=== PATIENT | female | born 1940 | race Caucasian/White ===

== ENCOUNTER 2018-04-18 19:01 | Observation (INO) | payer OTHER ==
--- NOTE | 2018-04-18 20:02 | PDOC ---
Rapid Medical Evaluation Time Seen by Provider: 04/18/18 19:58 Medical Evaluation: 04/18/18 19:58 I have performed a assbv-lr-mogary evaluation. The patient presents with a chief complaint: daughter says : her sugar is higher than 500, we can't control it" April 02, pt was on prednisone for 15 days due to asthma "The prednisone threw off her sugar level" Pt went to see PMD x2d ago/Dr. Deborah Kessler/Ken, increased insulin " which isn't helping" CP today when moving "She is NOT eating because she's scared" Last glucose test at home: 568 at ~1600h today +nausea/diarrhea stomach "discomfort" Denies vomiting Pertinent physical exam findings: L/S CTAB I have ordered the following: cbc/cmp/lactic/ekg/cardiac The patient will proceed to the ED for further evaluation. Discharge Disposition - Referrals Referrals: Ayan Kessler MD [Primary Care Provider] - - Patient Instructions - Post Discharge Activity
[2018-04-18 20:21] LABS: BASO % 0.2 % (0-2.0); HEMATOCRIT 37.5 % (32.4-45.2); HEMOGLOBIN 12.1 GM/dL (10.7-15.3); LYMPH % 32.2 % (8-40); MCH 21.6 pg (25.7-33.7); MCHC 32.3 g/dl (32.0-36.0); MEAN CELL VOLUME 66.8 fl (80-96); MEAN PLT VOLUME 8.8 fl (7.5-11.1); MONO % 5.8 % (3.8-10.2); NEUT % 59.8 % (42.8-82.8); PLATELET COUNT 229 K/MM3 (134-434); RBC 5.61 M/mm3 (3.60-5.2); RDW 17.1 % (11.6-15.6); WHITE BLOOD COUNT 6.9 K/mm3 (4.0-10.0)
--- NOTE | 2018-04-18 20:55 | PDOC ---
History of Present Illness - General Chief Complaint: Blood Sugar Problem Stated Complaint: SUGAR PROBLEM Time Seen by Provider: 04/18/18 19:58 - History of Present Illness Initial Comments: 04/18/18 21:05 Ms. Herrera is an 78 yo female w/ pmh of asthma, HTN, HLD, DM, and aortic valve replacement who presents for evaluation of several day history of increasing blood sugars over 500. She reports she was on prednisone recently (ended April 07) for seasonal allergies that exacerbated her asthma. Since this time she has had escalating BGM and hypertension - saw PCP 2 days ago and insulin / htn medication doses were both increased. She also reports nausea with diarrhea and generalized abdominal pain. The patient denies chest pain, shortness of breath, headache and dizziness. Denies fever, chills, nausea, vomit, diarrhea and constipation. Denies dysuria, frequency, urgency and hematuria. Allergies: NKDA Past History - Past Medical History Allergies/Adverse Reactions: Allergies Allergy/AdvReac Type Severity Reaction Status Date / Time No Known Allergies Allergy Verified 04/18/18 19:59 Asthma: Yes COPD: No DVT: No Diabetes: Yes (IDDM) HTN: Yes - Surgical History Cardiac Surgery: Yes (aortic valve replacement) GI Surgery: Yes (cholecystectomy) - Suicide/Smoking/Psychosocial Hx Smoking History: Never smoked Information on smoking cessation initiated: No Hx Alcohol Use: No Drug/Substance Use Hx: No Substance Use Type: None Review of Systems - Review of Systems Comments:: 04/18/18 21:29 GENERAL/CONSTITUTIONAL: No fever or chills. No weakness. HEAD, EYES, EARS, NOSE AND THROAT: No change in vision. No ear pain or discharge. No sore throat. CARDIOVASCULAR: No chest pain or shortness of breath RESPIRATORY: No cough, wheezing, or hemoptysis. GASTROINTESTINAL: +Generalized abdominal discomfort. One episode of diarrhea. GENITOURINARY: No dysuria, frequency, or change in urination. MUSCULOSKELETAL: No joint or muscle swelling or pain. No neck or back pain. SKIN: No rash NEUROLOGIC: +Dizziness today. ENDOCRINE: No increased thirst. No abnormal weight change HEMATOLOGIC/LYMPHATIC: No anemia, easy bleeding, or history of blood clots. ALLERGIC/IMMUNOLOGIC: No hives or skin allergy. *Physical Exam - Vital Signs Last Vital Signs Temp Pulse Resp BP Pulse Ox 98.5 F 81 20 196/106 98 04/18/18 19:59 04/18/18 19:59 04/18/18 19:59 04/18/18 19:59 04/18/18 19:59 - Physical Exam Comments: 04/18/18 21:29 GENERAL: Awake, alert, and fully oriented, in no acute distress HEAD: No signs of trauma, normocephalic, atraumatic EYES: PERRLA, EOMI, sclera anicteric, conjunctiva clear ENT: Auricles normal inspection, hearing grossly normal, nares patent, oropharynx clear without exudates. Moist mucosa NECK: Normal ROM, supple, no lymphadenopathy, JVD, or masses LUNGS: No distress, speaks full sentences, clear to auscultation bilaterally HEART: Regular rate and rhythm, normal S1 and S2, no murmurs, rubs or gallops, peripheral pulses normal and equal bilaterally. ABDOMEN: Soft, nontender, normoactive bowel sounds. No guarding, no rebound. No masses EXTREMITIES: Normal inspection, Normal range of motion, no edema. No clubbing or cyanosis. NEUROLOGICAL: +Gait ataxic. Cranial nerves II through XII grossly intact. Normal speech SKIN: Warm, Dry, normal turgor, no rashes or lesions noted. ED Treatment Course - LABORATORY CBC & Chemistry Diagram: 04/18/18 20:08 04/18/18 20:08 Medical Decision Making - Medical Decision Making 04/18/18 23:38 Ms. Herrera is an 78 yo female w/ pmh as described who presents for evaluation of dizziness and elevated BGM for several days. Patient noted to have ataxic gait upon trip to bathroom. Exam otherwise negative. BGM decreased from reported as below. Patient noted to be hypertensive however not emergently to [address] taken as well. Ataxia source unclear at this time. Admitting to hospitalist for further workup of ataxia source. Laboratory Results - last 24 hr 04/18/18 04/18/18 04/18/18 20:08 20:08 20:08 WBC 6.9 RBC 5.61 H Hgb 12.1 Hct 37.5 MCV 66.8 L MCH 21.6 L MCHC 32.3 RDW 17.1 H Plt Count 229 MPV 8.8 Absolute Neuts (auto) 4.1 Neutrophils % 59.8 Lymphocytes % 32.2 Monocytes % 5.8 Eosinophils % 2.0 Basophils % 0.2 Nucleated RBC % 0 Sodium 141 Potassium 4.5 Chloride 106 Carbon Dioxide 28 Anion Gap 7 L BUN 17 Creatinine 1.2 H Creat Clearance w eGFR 43.23 Random Glucose 241 H Lactic Acid 1.6 Calcium 8.5 Total Bilirubin 0.2 AST 22 ALT 29 Alkaline Phosphatase 129 H Creatine Kinase 152 Creatine Kinase Index 1.0 CK-MB (CK-2) 1.65 Troponin I < 0.02 Total Protein 6.7 Albumin 3.3 L Urine Color Urine Appearance Urine pH Ur Specific [place] Urine Protein Urine Glucose (UA) Urine Ketones Urine Blood Urine Nitrite Urine Bilirubin Urine Urobilinogen Ur Leukocyte Esterase Urine WBC (Auto) Urine RBC (Auto) Ur Epithelial Cells Urine Bacteria Urine Mucus 04/18/18 21:32 WBC RBC Hgb Hct MCV MCH MCHC RDW Plt Count MPV Absolute Neuts (auto) Neutrophils % Lymphocytes % Monocytes % Eosinophils % Basophils % Nucleated RBC % Sodium Potassium Chloride Carbon Dioxide Anion Gap BUN Creatinine Creat Clearance w eGFR Random Glucose Lactic Acid Calcium Total Bilirubin AST ALT Alkaline Phosphatase Creatine Kinase Creatine Kinase Index CK-MB (CK-2) Troponin I Total Protein Albumin Urine Color Straw Urine Appearance Clear Urine pH 6.0 Ur Specific [place] 1.006 Urine Protein 1+ H Urine Glucose (UA) 3+ H Urine Ketones Negative Urine Blood Negative Urine Nitrite Negative Urine Bilirubin Negative Urine Urobilinogen Negative Ur Leukocyte Esterase Negative Urine WBC (Auto) None Urine RBC (Auto) 1 Ur Epithelial Cells Rare Urine Bacteria Rare Urine Mucus Rare *DC/Admit/Observation/Transfer Diagnosis at time of Disposition: Dizziness, Ataxia - Discharge Dispostion Decision to Admit order: Yes - Referrals Referrals: Ayan Kessler MD [Primary Care Provider] - - Patient Instructions - Post Discharge Activity
[2018-04-18 21:14] LABS: ALBUMIN 3.3 g/dl (3.4-5.0); ANION GAP 7 (8-16); BILIRUBIN,TOTAL 0.2 mg/dL (0.2-1.0); BLOOD UREA NITROGEN 17 mg/dL (7-18); CALCIUM 8.5 mg/dL (8.5-10.1); CHLORIDE 106 mmol/L (98-107); CO2 28 mmol/L (21-32); CREATININE 1.2 mg/dL (0.55-1.02); GLUCOSE,RANDOM 241 mg/dL (74-106); SGPT/ALT 29 U/L (12-78); SODIUM 141 mmol/L (136-145); TOT PROT 6.7 g/dl (6.4-8.2)
[2018-04-18 21:16] LABS: ALK PHOS 129 U/L (45-117)
[2018-04-18 21:24] LABS: POTASSIUM 4.5 mmol/L (3.5-5.1); SGOT/AST 22 U/L (15-37)
[2018-04-18] MEDS ORDERED: SODIUM CHLORIDE 500 ML IV STA (21:53)
[2018-04-18 22:00] LABS: URINE APPEARANCE CLEAR; URINE BILIRUBIN NEGATIVE (<2.0 mg/dL); URINE COLOR STRAW; URINE GLUCOSE (UA) 3+ (NEGATIVE); URINE KETONE NEGATIVE (NEGATIVE); URINE LEUK ESTERASE NEGATIVE (NEGATIVE); URINE NITRITE NEGATIVE (NEGATIVE); URINE UROBILINOGEN NEGATIVE mg/dL (0.2-1.0)
[2018-04-18 22:01] LABS: URINE PROTEIN 1+ (NEGATIVE)
[2018-04-18 22:27] LABS: EPI CELLS RARE /HPF (FEW); URINE BACTERIA RARE /hpf (NONE SEEN); URINE MUCUS RARE
--- NOTE | 2018-04-18 22:27 | PDOC ---
Attending Attestation - HPI HPI: 04/18/18 22:41 The patient is a 78 year old female, with a significant past medical history of asthma, HTN, HLD, IDDM, and aortic valve replacement, who presents to the emergency department with, increased blood glucose readings. As per patient, she was put on a 15 day course of Prednisone (finished 04/07) for asthma exacerbation due to seasonal allergies, which she believes elevated her blood sugar. She saw her PCP 2 days ago which increased her insulin and hypertension medications, without relief. She reports associated dizziness and weakness. Allergies: NKA Past surgical history: cholecystectomy and aortic valve replacement. Social history: Nonsmoker. Denies EtOH use and recreational drug use. Primary Care Physician: Dr. Ayan Kessler <Wiliam Guzman - Last Filed: 04/18/18 22:41> - Resident Resident Name: Cesar Romero - ED Attending Attestation I have performed the following: I have examined & evaluated the patient, The case was reviewed & discussed with the resident, I agree w/resident's findings & plan, Exceptions are as noted - Physicial Exam PE: 04/19/18 00:01 Patient is awake and alert, obese, nontoxic appearing, hypertensive on initial exam Normocephalic, atraumatic PERRLA, EOMI, no nystagmus CTA RRR Abdomen is soft, nontender, nondistended Cranial nerves II through XII grossly intact; motor is 5 of 54; no pronation drift; gait-patient's ataxic - Medical Decision Making 04/19/18 00:02 Patient is 78-year-old female with history of hypertension, diabetes who presents with persistent vertigo for the past 3 days with associated nausea and elevated blood sugars. In the ER, patient is awake and alert, initially hypertensive with improving blood pressure without intervention. EKG shows no evidence of acute ischemia. Neurological evaluation reveals ataxic gait only without any evidence of posterior fossa insufficiency. Head CT shows no evidence of acute pathology. We'll judiciously hydrate. We'll place and observation further evaluation. <Lenny Kauffman - Last Filed: 04/19/18 00:03> Attestations - Attestations 04/18/18 22:42 Documentation prepared by Wiliam Guzman, acting as emergency medical technician basic for Lenny Kauffman MD. <Wiliam Guzman - Last Filed: 04/18/18 22:41>
--- NOTE | 2018-04-19 02:21 | HP ---
CHIEF COMPLAINT: High blood sugars PCP: HISTORY OF PRESENT ILLNESS: The patient is an 78 yo f w/ PMH asthma, HTN, DM, Aortic valve replacement who comes into the ED c/o elevated blood sugars. She had recently completed a 15 day course of prednisone on 04/07 for an asthma exacerbation and continued to have elevated sugars after stopping steroids. She also endorses elevated blood pressures, worsening dizziness and generalized weakness over this same period of time. Patient saw her PCP for these complaints and had her blood pressure medications and insulin dose increased which had no effect as per patient. The dizziness that the patient feels at this time is similar to past vertigo episodes, but is worse at this time. Patient denies chest pain, SOB, focal weakness, changes in vision. The patient's BP and sugar were both controlled in the ED, but the decision was made to admit the patient after she was noted to have a severely ataxic gait placing her at high risk of fall. PAST MEDICAL HISTORY: see HPI PAST SURGICAL HISTORY: aortic valve replacement cholecystectomy Social History: Smoking: denies Alcohol: denies Drugs: denies Ambulates independently at baseline Lives home alone with TEEN COUNSELOR 5 days per week Family History: Allergies No Known Allergies Allergy (Verified 04/18/18 19:59) HOME MEDICATIONS: REVIEW OF SYSTEMS CONSTITUTIONAL: Absent: fever, chills, diaphoresis, malaise, loss of appetite, weight change HEENT: Absent: rhinorrhea, nasal congestion, throat pain, throat swelling, difficulty swallowing, mouth swelling, ear pain, eye pain, visual changes CARDIOVASCULAR: Absent: chest pain, syncope, palpitations, irregular heart rate, lightheadedness , peripheral edema RESPIRATORY: Absent: cough, shortness of breath, dyspnea with exertion, orthopnea, wheezing, stridor, hemoptysis GASTROINTESTINAL: Absent: abdominal pain, abdominal distension, nausea, vomiting, diarrhea, constipation, melena, hematochezia GENITOURINARY: Absent: dysuria, frequency, urgency, hesitancy, hematuria, flank pain, genital pain MUSCULOSKELETAL: Absent: myalgia, arthralgia, joint swelling, back pain, neck pain SKIN: Absent: rash, itching, pallor HEMATOLOGIC/IMMUNOLOGIC: Absent: easy bleeding, easy bruising, lymphadenopathy, frequent infections ENDOCRINE: Absent: unexplained weight gain, unexplained weight loss, heat intolerance, cold intolerance NEUROLOGIC: Absent: headache, focal weakness or paresthesias, seizure, mental status changes , bladder or bowel incontinence PSYCHIATRIC: Absent: anxiety, depression, suicidal or homicidal ideation, hallucinations. PHYSICAL EXAMINATION Vital Signs - 24 hr 04/18/18 19:59 Temperature 98.5 F Pulse Rate 81 Respiratory 20 Rate Blood Pressure 196/106 O2 Sat by Pulse 98 Oximetry (%) GENERAL: Awake, alert, and fully oriented, in no acute distress. EYES: Pupils equal, round and reactive to light, extraocular movements intact, sclera anicteric, conjunctiva clear. No lid lag. EARS, NOSE, THROAT: oropharynx clear without exudates. Moist mucous membranes. NECK: Normal range of motion, supple without lymphadenopathy, JVD, or masses. LUNGS: Breath sounds equal, clear to auscultation bilaterally. No wheezes, and no crackles. No accessory muscle use. HEART: Regular rate and rhythm, normal S1 and S2. systolic ejection murmur heard at RUSB ABDOMEN: Soft, nontender, not distended, normoactive bowel sounds, no guarding, no rebound, no masses. No hepatomegaly or splenomegaly. LOWER EXTREMITIES: 2+ pulses, warm, well-perfused. No calf tenderness. No peripheral edema. NEUROLOGICAL: Cranial nerves II-X intact. Normal speech. Patient's gait extremely ataxic with short, unsteady steps. Strength and sensation preserved PSYCHIATRIC: Cooperative. Good eye contact. Appropriate mood and affect. SKIN: Warm, dry, normal turgor, no rashes or lesions noted, normal capillary refill. Laboratory Results - last 24 hr 04/18/18 04/18/18 04/18/18 20:08 20:08 20:08 WBC 6.9 RBC 5.61 H Hgb 12.1 Hct 37.5 MCV 66.8 L MCH 21.6 L MCHC 32.3 RDW 17.1 H Plt Count 229 MPV 8.8 Absolute Neuts (auto) 4.1 Neutrophils % 59.8 Lymphocytes % 32.2 Monocytes % 5.8 Eosinophils % 2.0 Basophils % 0.2 Nucleated RBC % 0 Sodium 141 Potassium 4.5 Chloride 106 Carbon Dioxide 28 Anion Gap 7 L BUN 17 Creatinine 1.2 H Creat Clearance w eGFR 43.23 Random Glucose 241 H Lactic Acid 1.6 Calcium 8.5 Total Bilirubin 0.2 AST 22 ALT 29 Alkaline Phosphatase 129 H Creatine Kinase 152 Creatine Kinase Index 1.0 CK-MB (CK-2) 1.65 Troponin I < 0.02 Total Protein 6.7 Albumin 3.3 L Urine Color Urine Appearance Urine pH Ur Specific [place] Urine Protein Urine Glucose (UA) Urine Ketones Urine Blood Urine Nitrite Urine Bilirubin Urine Urobilinogen Ur Leukocyte Esterase Urine WBC (Auto) Urine RBC (Auto) Ur Epithelial Cells Urine Bacteria Urine Mucus 04/18/18 21:32 WBC RBC Hgb Hct MCV MCH MCHC RDW Plt Count MPV Absolute Neuts (auto) Neutrophils % Lymphocytes % Monocytes % Eosinophils % Basophils % Nucleated RBC % Sodium Potassium Chloride Carbon Dioxide Anion Gap BUN Creatinine Creat Clearance w eGFR Random Glucose Lactic Acid Calcium Total Bilirubin AST ALT Alkaline Phosphatase Creatine Kinase Creatine Kinase Index CK-MB (CK-2) Troponin I Total Protein Albumin Urine Color Straw Urine Appearance Clear Urine pH 6.0 Ur Specific [place] 1.006 Urine Protein 1+ H Urine Glucose (UA) 3+ H Urine Ketones Negative Urine Blood Negative Urine Nitrite Negative Urine Bilirubin Negative Urine Urobilinogen Negative Ur Leukocyte Esterase Negative Urine WBC (Auto) None Urine RBC (Auto) 1 Ur Epithelial Cells Rare Urine Bacteria Rare Urine Mucus Rare ASSESSMENT/PLAN: The patient is an 78 yo f w/ PMH HTN, Asthma, DM, aortic valve replacement who comes into the ED c/o elevated blood sugar and BP found to have ataxic gait. #Ataxic gait, r/o occipital stroke -orthostatic vial signs -MRI/MRA -Neurology consult -carotid doppler -echo -lipid panel -PT eval -Fall precautions #DM -per the patient, she takes 30 units of lantus BID, recently increased to 34 -home medications should be verified -BGM ACHS -ISS #HTN -was hypertensive in ED, now improved -patient was unsure of home medications; holding antihypertensives until meds can be verified in AM #FEN -no fluids indicated -lytes WNL, replete PRN -diabetic diet #prophy -SCDs #Dispo -admit tele obs Visit type - Emergency Visit Emergency Visit: Yes ED Registration Date: 04/19/18 Care time: The patient presented to the Emergency Department on the above date and was hospitalized for further evaluation of their emergent condition. - New Patient This patient is new to me today: Yes Date on this admission: 04/19/18 - Critical Care Critical Care patient: No Hospitalist Screening - Colonoscopy Questionnaire Colonoscopy Questionnaire: Colonoscopy Questionnaire - Patient: 50 - 75 years old and never had a screening colonoscopy: Unknown History of colon or rectal polyps, or CA: Unknown History of IBD, Crohn's disease or UC: Unknown History of abdominal radiation therapy as a child: Unknown - Relative: 1 with colon or rectal CA, or polyps at age 60 or younger: Unknown Colon or rectal CA diagnosed at age 45 or younger: Unknown Multiple relatives with colon or rectal CA: Unknown - Outcome: Screening Result: Negative Screen
--- NOTE | 2018-04-19 02:56 | PN ---
Teaching Attending Note Name of Resident: Peng Conteh ATTENDING PHYSICIAN STATEMENT I saw and evaluated the patient. I reviewed the resident's note and discussed the case with the resident. I agree with the resident's findings and plan as documented. SUBJECTIVE: Patient is an 78 year old woman with a significant past medical history of asthma, HTN, HLD, IDDM, and aortic valve replacement, who presents to the ER with, dizziness, weakness and hyperglycemia. As per patient, she was put on a 15 day course of Prednisone (finished 04/07) for asthma exacerbation due to seasonal allergies, which she believes elevated her blood sugar. She saw her PCP 2 days ago which increased her insulin and hypertension medications, without relief. She reports associated dizziness and weakness. OBJECTIVE: Alert and in no distress. Not orthostatic. Vital Signs Period Temp Pulse Resp BP Sys/[place] Pulse Ox Last 24 Hr 98.4 F-98.5 F 73-81 18-20 175-196/88-106 98-98 HEENT: No Jaundice, eye redness or discharge, PERRLA, EOMI. Normocephalic, atraumatic. External ears are normal and hearing is grossly intact. No nasal discharge. Neck: Supple, nontender. No palpable adenopathy or thyromegaly. No JVD Chest: Good effort. Clear to auscultation and percussion. Heart: Regular. No S3 or rub. 2/6 RADHAMES Abdomen: Not distended, soft, nontender and no HSM. No rebound or guarding. Normoactive bowel sounds. Ext: Peripheral pulses intact. No leg edema. Skin: Warm and dry. No petechiae, rash or ecchymosis. Neuro: Alert. Oriented x3. CN 2-12 grossly intact. Unsteady gait. Sensation grossly intact in all four extremities and DTR are symmetric. Current Medications Generic Name Dose Route Start Last Admin Trade Name Freq PRN Reason Stop Dose Admin Insulin Aspart 1 vial 04/19/18 07:00 Novolog Vial Sliding Scale - SQ ACHS YISEL Protocol Abnormal Lab Results 04/18/18 04/18/18 04/18/18 20:08 20:08 21:32 RBC 5.61 H MCV 66.8 L MCH 21.6 L RDW 17.1 H Anion Gap 7 L Creatinine 1.2 H Random Glucose 241 H Alkaline Phosphatase 129 H Albumin 3.3 L Urine Protein 1+ H Urine Glucose (UA) 3+ H ASSESSMENT AND PLAN: 1. Dizziness - Etiology is unclear. May be related to the combined effects of dehydration and uncontrolled hypertension. Steroid withdrawal syndrome is a remote possibility. Her head CT is negative and her EKG does not show any significant ST-T wave changes. Will use hydralazine 25 mg tid to control BG, strive for euglycemia and hydrate her gently. Will get brain MRI to rule out a small infarct and consult Neurology and PT. Monitor on telemetry, get ECHO and implement fall precautions. If symptoms persist, will evaluate her adrenal function. 2. DM - For now, we will hold the home diabetes drugs and implement sliding scale insulin regimen. Provide comprehensive diabetes care with patient teaching and counseling about the importance of euglycemia, eye care and foot care. 3. Obesity - Will provide patient all the necessary assistance , counseling and positive reinforcement to facilitate weight loss. Consult bonding molder. 4. DVT prophylaxis - Heparin 5000u sq tid. 5. Advance directives - Full code
[2018-04-19 04:41] VITALS: BMI 34.3
[2018-04-19] MEDS: INSULIN SLIDING SCALE (NOVOLOG) 1 VIAL SQ SCH ×4 (06:25→21:13)
[2018-04-19] MEDS ORDERED: INSULIN (NOVOLOG) ASPART 100 UNITS/ML 10ML VIAL ONE ×2 (06:32→20:42)
[2018-04-19] MEDS ORDERED: INSULIN SLIDING SCALE (NOVOLOG) 1 VIAL SQ SCH (07:00)
[2018-04-19 07:23] LABS: HEMATOCRIT 33.2 % (32.4-45.2); MCH 21.9 pg (25.7-33.7); MCHC 33.3 g/dl (32.0-36.0); MEAN CELL VOLUME 65.8 fl (80-96); MEAN PLT VOLUME 8.9 fl (7.5-11.1); PLATELET COUNT 199 K/MM3 (134-434); RBC 5.04 M/mm3 (3.60-5.2); WHITE BLOOD COUNT 6.2 K/mm3 (4.0-10.0)
[2018-04-19 07:47] LABS: INR 1.04 (0.82-1.09); PROTHROMBIN TIME (PATIENT) 11.7 SEC (9.7-13.0)
[2018-04-19 07:48] LABS: ACTIVATED PTT 29.4 SECONDS (25.2-36.5)
[2018-04-19 08:51] LABS: ANION GAP 8 (8-16); BLOOD UREA NITROGEN 18 mg/dL (7-18); CALCIUM 8.2 mg/dL (8.5-10.1); CHLORIDE 106 mmol/L (98-107); CO2 29 mmol/L (21-32); CREATININE 0.9 mg/dL (0.55-1.02); GLUCOSE,RANDOM 161 mg/dL (74-106); PHOSPHOROUS 3.7 mg/dL (2.5-4.9); POTASSIUM 3.6 mmol/L (3.5-5.1); SODIUM 143 mmol/L (136-145)
--- NOTE | 2018-04-19 09:35 | EKG ---
Test Reason : Blood Pressure : / mmHG Vent. Rate : 079 BPM Atrial Rate : 079 BPM P-R Int : 196 ms QRS Dur : 088 ms QT Int : 414 ms P-R-T Axes : 073 -40 138 degrees QTc Int : 474 ms SINUS RHYTHM WITH OCCASIONAL PREMATURE VENTRICULAR COMPLEXES LEFT AXIS DEVIATION LEFT VENTRICULAR HYPERTROPHY WITH REPOLARIZATION ABNORMALITY CANNOT RULE OUT SEPTAL INFARCT , AGE UNDETERMINED ABNORMAL ECG WHEN COMPARED WITH ECG OF 04-APR-2001 00:28, PREMATURE VENTRICULAR COMPLEXES ARE NOW PRESENT MINIMAL CRITERIA FOR SEPTAL INFARCT ARE NOW PRESENT T WAVE INVERSION NOW EVIDENT IN LATERAL LEADS Confirmed by CAROLINE HICKEY MD ([id number]) on 04/19/2018 9:35:03 AM Referred By: Confirmed By:CAROLINE HICKEY MD
--- NOTE | 2018-04-19 10:50 | PN ---
Progress Note (short form) - Note Progress Note: Patient continues to feel dizzy better than yesterday as per patient. Vital Signs Temperature 98.9 F 04/19/18 08:58 Pulse Rate 77 04/19/18 08:58 Respiratory Rate 20 04/19/18 08:58 Blood Pressure 170/73 04/19/18 08:58 O2 Sat by Pulse Oximetry (%) 95 04/19/18 03:15 HEENT: No Jaundice, eye redness or discharge, PERRLA, EOMI. Normocephalic, atraumatic. External ears are normal and hearing is grossly intact. Neck: Supple, nontender. No palpable adenopathy or thyromegaly. No JVD Chest:Clear to auscultation and percussion. Heart: RRR. No S3 or rub. 2/6 RADHAMES Abdomen: Not distended, soft, nontender . No rebound or guarding. Normoactive bowel sounds. Ext: Peripheral pulses intact. No leg edema. Skin: Warm and dry. good turgor . Neuro: Alert. Oriented x3. CN 2-12 grossly intact. Unsteady gait. CBCD WBC 6.2 K/mm3 (4.0-10.0) 04/19/18 06:30 RBC 5.04 M/mm3 (3.60-5.2) 04/19/18 06:30 Hgb 11.0 GM/dL (10.7-15.3) 04/19/18 06:30 Hct 33.2 % (32.4-45.2) 04/19/18 06:30 MCV 65.8 fl (80-96) L 04/19/18 06:30 MCHC 33.3 g/dl (32.0-36.0) 04/19/18 06:30 RDW 17.0 % (11.6-15.6) H 04/19/18 06:30 Plt Count 199 K/MM3 (134-434) 04/19/18 06:30 MPV 8.9 fl (7.5-11.1) 04/19/18 06:30 CMP Sodium 143 mmol/L (136-145) 04/19/18 06:30 Potassium 3.6 mmol/L (3.5-5.1) 04/19/18 06:30 Chloride 106 mmol/L (98-107) 04/19/18 06:30 Carbon Dioxide 29 mmol/L (21-32) 04/19/18 06:30 Anion Gap 8 (8-16) 04/19/18 06:30 BUN 18 mg/dL (7-18) 04/19/18 06:30 Creatinine 0.9 mg/dL (0.55-1.02) 04/19/18 06:30 Creat Clearance w eGFR > 60 (>60) 04/19/18 06:30 Random Glucose 161 mg/dL (74-106) H 04/19/18 06:30 Calcium 8.2 mg/dL (8.5-10.1) L 04/19/18 06:30 Total Bilirubin 0.2 mg/dL (0.2-1.0) 04/18/18 20:08 AST 22 U/L (15-37) 04/18/18 20:08 ALT 29 U/L (12-78) 04/18/18 20:08 Alkaline Phosphatase 129 U/L (45-117) H 04/18/18 20:08 Total Protein 6.7 g/dl (6.4-8.2) 04/18/18 20:08 Albumin 3.3 g/dl (3.4-5.0) L 04/18/18 20:08 CARDIAC ENZYMES Creatine Kinase 152 IU/L (26-192) 04/18/18 20:08 Troponin I < 0.02 ng/ml (0.00-0.05) 04/18/18 20:08 Current Medications Generic Name Dose Route Start Last Admin Trade Name Freq PRN Reason Stop Dose Admin Insulin Aspart 1 vial 04/19/18 07:00 04/19/18 06:25 Novolog Vial Sliding Scale - SQ 2 units ACHS YISEL Administration Protocol ASSESSMENT AND PLAN: Patient is an 78 year old woman with a significant past medical history of asthma, HTN, HLD, IDDM, and aortic valve replacement, who presents to the ER with, dizziness, weakness and hyperglycemia. # Acute Dizziness with unclear etiology. Will start her on meclizine #T2DM continue SS scale # Obesity - consult wire weaver helper, weight and diet control # DVT Px: Heparin 5000u sq tid. Advance directives - Full code will monitor Visit type - Emergency Visit Emergency Visit: Yes ED Registration Date: 04/19/18 Care time: The patient presented to the Emergency Department on the above date and was hospitalized for further evaluation of their emergent condition. - New Patient This patient is new to me today: Yes Date on this admission: 04/19/18 - Critical Care Critical Care patient: No - Discharge Referral Referred to [facility] No
[2018-04-19] MEDS ORDERED: MECLIZINE HCL 25 MG TABLET (FP) PO PRN (13:19)
[2018-04-19 13:50] LABS: CHOLESTEROL 167 mg/dL (50-200); HDL CHOLESTEROL 44 mg/dL (40-60); TRIGLYCERIDES 172 mg/dL (35-160)
[2018-04-19] MEDS ORDERED: PT OWN MED DRAWER 7, Y5N ONE (17:35)
[2018-04-19] MEDS: amLODIPine BESYLATE 5 MG TABLET (FP) PO SCH (17:36)
[2018-04-19] MEDS: ASPIRIN 81 MG CHEWABLE TABLETS PO SCH (17:36)
--- NOTE | 2018-04-19 21:06 | CONSULT ---
Consult - text type - Consultation Consultation Note: NEUROLOGY CONSULTATION is greatly appreciated: Events reviewed and patient examined in the presence of her daughter, Rosalina. This 78 yo RH woman lives with an aide since moving here from [place] last June. PMH sig for HTN, DM, Chol, ASHD, S/P AVR, depression and anxiety. On cozar, remeron, norvasc, lipitor, insulin ASA and recently started on Donepezil (5 mg) for her memory. Episodic headaches, improved after menapause. Chronic insomnia with numbness, tingling and cramps in her legs x many years. Episodic dizziness, described as spinning, x 5 years. Last episode last year. Usually last about 2 days. Given meclizine in the past. Over the last few weeks Pt has been on prednisone for exacerbation of COPD with difficulty controlling her BG (Was 600 mg% on the morning of admission). Admitted after recurrent vertigo. No positional. +Nausea. Chronic tinnitus left ear (chirping). Saw ENT at [facility]. Daughter believes audiology was normal. CT of head (reviewed): Scattered microvascular changes and punctate calcification of the basal ganglia, B/L. Carotid duplex dopplers: Normal CLARIBEL: No bruits. Cor Reg. BP 180/90 without orthostatic changes NEURO: MS/speech normal CN II-XII normal without nystagmus Motor: No drift or tremor. Normal strength, tone and bulk. Reduced KJ 's. Absent AJ's. Downgoing toes. Near constant rhythmic, periodic toe movements. Coord: No FTN dystaxia Sensory: Min reduced vibration at toes. Normal at the ankles. Romberg - Gait: Sl wide-based, sl shuffle. IMP: Non-focal exam sig for a mild diabetic peripheral neuropathy. A significant OMS is not present. Etiology of recurrent vertigo is most likely Labyrinthitis, exacerbated by Toxic-metabolic Encephalopathy (hyperglycemic). H/O Headaches-most likely migraine. Insomnia due to Restless legs syndrome (RLS). Suggest: Agree completely with MRI of the brain. Gently increase BP meds to normalize BP, while following orthostatic BP's Continue current meds for now (Donepezil, etc). Check B12, TSH, RPR, PTH (for basal ganglia cacifications) Neuro f/u as outpatient. Thank you very much, Miles Fam MD
[2018-04-19] MEDS ORDERED: ATORVASTATIN CA 40 MG TABLET (FP) PO SCH (22:00)
[2018-04-19] MEDS ORDERED: DONEPEZIL HCL 5 MG TABLET (FP) PO SCH (22:00)
[2018-04-19] MEDS ORDERED: MIRTAZAPINE 15 MG TABLET (FP) PO SCH (22:00)
[2018-04-20] MEDS: INSULIN SLIDING SCALE (NOVOLOG) 1 VIAL SQ SCH ×3 (06:27→16:54)
[2018-04-20] MEDS ORDERED: PT OWN MED DRAWER 7, Y5N ONE (09:55)
[2018-04-20] MEDS: amLODIPine BESYLATE 5 MG TABLET (FP) PO SCH (09:57)
[2018-04-20] MEDS: ASPIRIN 81 MG CHEWABLE TABLETS PO SCH (09:57)
[2018-04-20] MEDS ORDERED: HYDROCHLOROTHIAZIDE 12.5 MG CAPSULE (FP) PO SCH (10:00)
[2018-04-20] MEDS ORDERED: PATIENT'S OWN MEDICATION (NON-FORMULARY) (Losartan/Hydrochlorothiazide [Losartan-Hctz 100- PO SCH (10:00)
[2018-04-20] MEDS ORDERED: LOSARTAN POTASSIUM 50 MG TABLET (FP) PO SCH (10:00)
--- NOTE | 2018-04-20 11:07 | PN ---
Physical Exam: SUBJECTIVE: Patient seen and examined at bedside. No acute complaints. Dizziness has improved. Admits to ambulating well. Kelley PO intake, denies n/v. OBJECTIVE: Vital Signs Period Temp Pulse Resp BP Sys/Escamilla Pulse Ox Last 24 Hr 97.8 F-99.3 F 82-95 20-22 141-189/65-90 99-99 GENERAL: NAD. AAOx3. HEENT: EOMI. Moist mucus membranes. NECK: Normal range of motion, supple without lymphadenopathy, JVD, or masses. LUNGS: Breath sounds equal, clear to auscultation bilaterally. No wheezes, and no crackles. No accessory muscle use. HEART: Regular rate and rhythm, normal S1 and S2. systolic ejection murmur heard at RUSB ABDOMEN: Soft, nontender, not distended, normoactive bowel sounds, no guarding, no rebound, no masses. No hepatomegaly or splenomegaly. LOWER EXTREMITIES: 2+ pulses, warm, well-perfused. No calf tenderness. No peripheral edema. NEUROLOGICAL: Cranial nerves II-X intact. Normal speech. PSYCHIATRIC: Cooperative. Good eye contact. Appropriate mood and affect. Laboratory Results - last 24 hr 04/19/18 04/19/18 04/19/18 06:30 11:02 17:06 POC Glucometer 239 200 Triglycerides 172 H Cholesterol 167 Total LDL Cholesterol 99 HDL Cholesterol 44 04/19/18 04/20/18 20:39 06:23 POC Glucometer 226 242 Triglycerides Cholesterol Total LDL Cholesterol HDL Cholesterol Active Medications Generic Name Dose Route Start Last Admin Trade Name Freq PRN Reason Stop Dose Admin Amlodipine Besylate 2.5 mg 04/19/18 17:00 04/20/18 09:57 Norvasc - PO 2.5 mg DAILY YISEL Administration Aspirin 81 mg 04/19/18 17:00 04/20/18 09:57 Asa - PO 81 mg DAILY YISEL Administration Atorvastatin Calcium 40 mg 04/19/18 22:00 04/19/18 21:12 Lipitor - PO 40 mg HS YISEL Administration Donepezil HCl 5 mg 04/19/18 22:00 04/19/18 21:12 Aricept - PO 5 mg HS YISEL Administration Hydrochlorothiazide 12.5 mg 04/20/18 10:00 04/20/18 09:58 Hctz - PO 12.5 mg DAILY YISEL Administration Insulin Aspart 1 vial 04/19/18 07:00 04/20/18 06:27 Novolog Vial Sliding Scale - SQ 4 units ACHS YISEL Administration Protocol Losartan Potassium 100 mg 04/20/18 10:00 04/20/18 09:58 Cozaar - PO 100 mg DAILY YISEL Administration Meclizine HCl 12.5 mg 04/20/18 12:00 Antivert - PO Q6HPO YISEL Mirtazapine 15 mg 04/19/18 22:00 04/19/18 21:12 Remeron - PO 15 mg HS YISEL Administration ASSESSMENT/PLAN: 78F with a significant past medical history of asthma, HTN, HLD, IDDM, and aortic valve replacement, who presents to the ER with, dizziness, weakness and hyperglycemia. #Acute Dizziness 2/2 likely labyrinthitis, exacerbated by hyperglycemia - cont Meclizine 12.5 mg PO Q6h - Per Cardio: cont BP meds, neuro meds; f/u outpatient neuro after d/c - f/u MRI brain tomorrow #HTN; Stable. 159/77 this AM. - cont Losartan 100 mg PO QD, HCTZ 12.5 mg PO QD, Amlodipine 2.5 mg PO QD #HLD - cont Atorvastatin 40 mg PO QHS #DM, type II - ISS, glucose checks # Obesity - f/u motorcycle repairer consult - weight loss counseling # DVT Px: - Heparin 5000U SubQ TID. dispo monitor on med-surg full code Visit type - Emergency Visit Emergency Visit: Yes ED Registration Date: 04/19/18 Care time: The patient presented to the Emergency Department on the above date and was hospitalized for further evaluation of their emergent condition. - New Patient This patient is new to me today: Yes Date on this admission: 04/20/18 - Critical Care Critical Care patient: No
[2018-04-20] MEDS: MECLIZINE HCL 12.5 MG TABLET PO SCH ×2 (12:00→17:23)
--- NOTE | 2018-04-20 16:01 | PN ---
Teaching Attending Note Name of Resident: Jenny Pierce ATTENDING PHYSICIAN STATEMENT I saw and evaluated the patient. I reviewed the resident's note and discussed the case with the resident. I agree with the resident's findings and plan as documented. SUBJECTIVE: Patient is better but continues to feel dizzy, and meclizine 25mg making her drowsy. OBJECTIVE: Vital Signs Temperature 98.5 F 04/20/18 10:00 Pulse Rate 92 H 04/20/18 13:59 Respiratory Rate 18 04/20/18 13:59 Blood Pressure 137/89 04/20/18 13:59 O2 Sat by Pulse Oximetry (%) 95 04/20/18 09:00 CBCD WBC 6.2 K/mm3 (4.0-10.0) 04/19/18 06:30 RBC 5.04 M/mm3 (3.60-5.2) 04/19/18 06:30 Hgb 11.0 GM/dL (10.7-15.3) 04/19/18 06:30 Hct 33.2 % (32.4-45.2) 04/19/18 06:30 MCV 65.8 fl (80-96) L 04/19/18 06:30 MCHC 33.3 g/dl (32.0-36.0) 04/19/18 06:30 RDW 17.0 % (11.6-15.6) H 04/19/18 06:30 Plt Count 199 K/MM3 (134-434) 04/19/18 06:30 MPV 8.9 fl (7.5-11.1) 04/19/18 06:30 CMP Sodium 143 mmol/L (136-145) 04/19/18 06:30 Potassium 3.6 mmol/L (3.5-5.1) 04/19/18 06:30 Chloride 106 mmol/L (98-107) 04/19/18 06:30 Carbon Dioxide 29 mmol/L (21-32) 04/19/18 06:30 Anion Gap 8 (8-16) 04/19/18 06:30 BUN 18 mg/dL (7-18) 04/19/18 06:30 Creatinine 0.9 mg/dL (0.55-1.02) 04/19/18 06:30 Creat Clearance w eGFR > 60 (>60) 04/19/18 06:30 Random Glucose 161 mg/dL (74-106) H 04/19/18 06:30 Calcium 8.2 mg/dL (8.5-10.1) L 04/19/18 06:30 Total Bilirubin 0.2 mg/dL (0.2-1.0) 04/18/18 20:08 AST 22 U/L (15-37) 04/18/18 20:08 ALT 29 U/L (12-78) 04/18/18 20:08 Alkaline Phosphatase 129 U/L (45-117) H 04/18/18 20:08 Total Protein 6.7 g/dl (6.4-8.2) 04/18/18 20:08 Albumin 3.3 g/dl (3.4-5.0) L 04/18/18 20:08 CARDIAC ENZYMES Creatine Kinase 152 IU/L (26-192) 04/18/18 20:08 Troponin I < 0.02 ng/ml (0.00-0.05) 04/18/18 20:08 Current Medications Generic Name Dose Route Start Last Admin Trade Name Juanjose PRN Reason Stop Dose Admin Amlodipine Besylate 2.5 mg 04/19/18 17:00 04/20/18 09:57 Norvasc - PO 2.5 mg DAILY YISEL Administration Aspirin 81 mg 04/19/18 17:00 04/20/18 09:57 Asa - PO 81 mg DAILY YISEL Administration Atorvastatin Calcium 40 mg 04/19/18 22:00 04/19/18 21:12 Lipitor - PO 40 mg HS YISEL Administration Donepezil HCl 5 mg 04/19/18 22:00 04/19/18 21:12 Aricept - PO 5 mg HS YISEL Administration Hydrochlorothiazide 12.5 mg 04/20/18 10:00 04/20/18 09:58 Hctz - PO 12.5 mg DAILY YISEL Administration Insulin Aspart 1 vial 04/19/18 07:00 04/20/18 12:00 Novolog Vial Sliding Scale - SQ 4 units ACHS YISEL Administration Protocol Losartan Potassium 100 mg 04/20/18 10:00 04/20/18 09:58 Cozaar - PO 100 mg DAILY YISEL Administration Meclizine HCl 12.5 mg 04/20/18 12:00 04/20/18 12:00 Antivert - PO 12.5 mg Q6HPO YISEL Administration Mirtazapine 15 mg 04/19/18 22:00 04/19/18 21:12 Remeron - PO 15 mg HS YISEL Administration Home Medications Medication Instructions Recorded Amlodipine Besylate 2.5 mg PO DAILY 04/19/18 Aspirin [ASA -] 81 mg PO DAILY 04/19/18 Atorvastatin Ca [Lipitor] 40 mg PO DAILY 04/19/18 Donepezil HCl [Aricept] 5 mg PO DAILY 04/19/18 Losartan/Hydrochlorothiazide 1 tab PO DAILY 04/19/18 [Losartan-Hctz 100-12.5 mg Tab] Mirtazapine [Remeron -] 15 mg PO HS 04/19/18 PE: per resident's note Neuro: Unstaedy on her feet. ASSESSMENT AND PLAN: Patient is an 78 year old woman with a significant past medical history of asthma, HTN, HLD, IDDM, and aortic valve replacement, who presents to the ER with, dizziness, weakness and hyperglycemia. # Acute Dizziness with unclear etiology. continues to be dizzy , will have her on standing dose of Meclizine 12.5mg q6h.(lowered the dose since feeling very dizzy), Fall precaution, bed alarm #T2DM continue SS scale # Obesity - consult solder technician, weight and diet control # DVT Px: Heparin 5000u sq tid. Advance directives - Full code will monitor
--- NOTE | 2018-04-20 17:00 | DS ---
Physical Exam: SUBJECTIVE: Patient seen and examined at bedside. No acute complaints today. OBJECTIVE: Vital Signs Period Temp Pulse Resp BP Sys/Escamilla Pulse Ox Last 24 Hr 97.8 F-99.3 F 82-95 18-22 137-189/65-89 95-99 PHYSICAL EXAM GENERAL: NAD. AAOx3. HEENT: EOMI. Moist mucus membranes. NECK: Normal range of motion, supple without lymphadenopathy, JVD, or masses. LUNGS: Breath sounds equal, clear to auscultation bilaterally. No wheezes, and no crackles. No accessory muscle use. HEART: Regular rate and rhythm, normal S1 and S2. systolic ejection murmur heard at RUSB ABDOMEN: Soft, nontender, not distended, normoactive bowel sounds, no guarding, no rebound, no masses. No hepatomegaly or splenomegaly. LOWER EXTREMITIES: 2+ pulses, warm, well-perfused. No calf tenderness. No peripheral edema. NEUROLOGICAL: Cranial nerves II-X intact. Normal speech. Normal gait. PSYCHIATRIC: Cooperative. Good eye contact. Appropriate mood and affect. LABS Laboratory Results - last 24 hr 04/19/18 04/19/18 04/20/18 17:06 20:39 06:23 POC Glucometer 200 226 242 04/20/18 11:47 POC Glucometer 229 MRI Brain w/ MRA: Minimal atheromatous changes of the internal carotid arteries with no evidence of aneurysm or intracranial AV malformation.. No evidence of aneurysm of [place] of [place]. No evidence of basilar stenosis, dissection, or occlusion. MRI of Brain: No evidence of enhancing intra or extra canalicular acoustic schwannomas. Cochlear structure unremarkable. Extensive ischemic changes in the white matter of both cerebral hemispheres also scattered small infarcts in the R and L cerebellar hemispheres sequela most probably to long-standing HTN or small vessel arteriosclerosis. Carotid doppler: No evidence of hemodynamically significant stenosis. HOSPITAL COURSE: 78F w/ pmhx of asthma, HTN, HLD, DM, and aortic valve replacement presented to the ED with complaints of persistently high blood glucose levels >500s along with worsening dizziness, generalized weakness, and unstable gait. Upon initial ED evaluation, pt was given insulin to normalize blood sugar levels. She was consequently admitted for persistent ataxic gait and dizziness for further evaluation. During her hospital stay a brain MRI and carotid doppler were done which showed no evidence of acute stenosis, infarct, or hemorrhage. Pt was evaluated by a neurologist for further work up. Neurologist believed the cause of pt's dizziness was likely due to labyrinthitis 2/2 metabolic derangements related to hyperglycemia. Pt was given Meclizine for dizziness. Prior to discharge, pt showed much symptomatic improvement with no signs of dizziness and a return to normal gait w/o generalized weakness. She was subsequently discharged to home with Meclizine and instructions to follow up with the ear, nose, and throat doctor, the neurologist and her PCP. Date of Admission:04/19/18 Date of Discharge: 04/20/18 Minutes to complete discharge: 35 Discharge Summary Reason For Visit: DIZZINESS Condition: Improved - Instructions Diet, Activity, Other Instructions: You were admitted to the hospital for worsening dizziness, generalized weakness , and unstable gait associated with high blood sugar levels. In the ED, you were given medication to normalize your blood sugar levels. You were also given Meclizine in the hospital and your symptoms of dizziness, weakness, and unstable gait improved. Additionally, you were evaluated by a neurologist. A brain MRI and a carotid doppler were done and did not show any evidence of acute processes as a cause of your symptoms. You were discharged with Meclizine for dizziness with recommendation to follow up with your ear, nose, and throat doctor as well as your neurologist. MEDICAL RECOMMENDATIONS Please take Meclizine 12.5 mg by mouth every 6 hours as needed for dizziness. Please continue taking your home meds. CONSULT RECOMMENDATIONS Please follow up with your primary care physician within 1 week. Please follow up with your ear, nose, and throat doctor, Dr. Braden Cruz, tomorrow, Friday April 20, 2018. Please follow up with your neurologist, Dr. Fam, within 1 week. If you experience persistent dizziness, unstable gait, worsening chest pain or shortness of breath, please go to your nearest emergency room immediately. Referrals: Miles Fam MD [Staff Physician] - 1 Week Ayan Kessler MD [Primary Care Provider] - 1 Week Braden Cruz MD [Staff Physician] - 04/21/18 (Evaluation for labyrinthitis) Disposition: HOME - Home Medications Comprehensive Discharge Medication List: Ambulatory Orders Amlodipine Besylate 2.5 mg PO DAILY 04/19/18 Aspirin [ASA -] 81 mg PO DAILY 04/19/18 Atorvastatin Ca [Lipitor] 40 mg PO DAILY 04/19/18 Donepezil HCl [Aricept] 5 mg PO DAILY 04/19/18 Losartan/Hydrochlorothiazide [Losartan-Hctz 100-12.5 mg Tab] 1 tab PO DAILY Mirtazapine [Remeron -] 15 mg PO HS 04/19/18 Meclizine HCl [Antivert -] 12.5 mg PO Q6HPO PRN #120 tablet 04/20/18 This patient is new to me today: Yes Date on this admission: 04/20/18 Emergency Visit: Yes ED Registration Date: 04/19/18 Care time: The patient presented to the Emergency Department on the above date and was hospitalized for further evaluation of their emergent condition. Critical Care patient: No - Discharge Referral Referred to [facility] Med [facility] No
[2018-04-20 18:33] VITALS: BP 166/70; PULSE 91; TEMP 99.1
== END 2018-04-20 21:11 | disposition home or self-care (01) ==
LOC: JER 19:01 → JERBED 04-19 00:50 → MERGE 04-19 00:50 → JERBED 04-19 01:27 → UNDOADMOB 04-19 01:27 → J4S 04-19 03:31
PROVIDERS: ADMIT Internal Medicine; ATTEND Internal Medicine
PROC: 3E013GC Introduction of Other Therapeutic Substance into Subcutaneous Tissue, Percutaneous Approach (ICD-10-PCS; principal; 2018-04-19)
PROC: 3E0337Z Introduction of Electrolytic and Water Balance Substance into Peripheral Vein, Percutaneous Approach (ICD-10-PCS; 2018-04-19)
DX: R42 Dizziness and giddiness (principal); R26.0 Ataxic gait; I10 Essential (primary) hypertension; E78.5 Hyperlipidemia, unspecified; E11.42 Type 2 diabetes mellitus with diabetic polyneuropathy; E11.65 Type 2 diabetes mellitus with hyperglycemia; J45.909 Unspecified asthma, uncomplicated; Z95.2 Presence of prosthetic heart valve; Z79.4 Long term (current) use of insulin; E66.9 Obesity, unspecified; Z68.34 Body mass index [BMI] 34.0-34.9, adult
CPT/HCPCS: 36415; 70450-TC; 70546-TC; 70553-TC; 80048; 80053; 80061; 81003; 81015; 82550; 82553; 82962; 83605; 83721; 83735; 84100; 84484; 85025; 85027; 85610; 85730; 87086; 93005; 93010; 93880-TC; 96372; 99285-25; G0378; J7030

== ENCOUNTER 2018-06-23 19:24 | Inpatient (IN) | payer OTHER ==
--- NOTE | 2018-06-23 19:28 | PDOC ---
Rapid Medical Evaluation Time Seen by Provider: 06/23/18 19:27 Medical Evaluation: Allergies Allergy/AdvReac Type Severity Reaction Status Date / Time No Known Allergies Allergy Unverified 09/07/15 11:46 06/23/18 19:28 The patient presents with a chief complaint of: asthma, difficulty breathing I have performed a brief in-person evaluation of this patient. Pertinent physical exam findings: vss, resp distress I have ordered the following: ekg, labs, chest xray, duoneb The patient will proceed to the ED for further evaluation. 06/23/18 19:31
[2018-06-23] MEDS ORDERED: ALBUTEROL SO4 2.5/IPRATROPIUM 0.5 INH SOL 3 ML VIAL.NEB. NEB ONE ×2 (19:30→20:32)
--- NOTE | 2018-06-23 19:46 | PDOC ---
History of Present Illness - General Chief Complaint: Shortness of Breath Stated Complaint: ASTHMA Time Seen by Provider: 06/23/18 19:27 Past History - Past Medical History Allergies/Adverse Reactions: Allergies Allergy/AdvReac Type Severity Reaction Status Date / Time No Known Allergies Allergy Unverified 06/23/18 19:28 Home Medications: Ambulatory Orders Amlodipine Besylate 5 mg PO DAILY 09/07/15 Aspirin [ASA -] 81 mg PO DAILY 09/07/15 Atorvastatin Ca [Lipitor -] 10 mg PO HS 09/07/15 Meclizine HCl 25 mg PO HS 09/07/15 Metoprolol Succinate [Toprol Xl -] 100 mg PO DAILY 09/07/15 Omeprazole [Prilosec (RX)] 20 mg PO DAILY 09/07/15 Zolpidem Tartrate 10 mg PO HS 09/07/15 Amlodipine Besylate 2.5 mg PO DAILY 04/19/18 Aspirin [ASA -] 81 mg PO DAILY 04/19/18 Atorvastatin Ca [Lipitor] 40 mg PO DAILY 04/19/18 Donepezil HCl [Aricept] 5 mg PO DAILY 04/19/18 Losartan/Hydrochlorothiazide [Losartan-Hctz 100-12.5 mg Tab] 1 tab PO DAILY Mirtazapine [Remeron -] 15 mg PO HS 04/19/18 Insulin Glargine,Hum.rec.anlog [Lantus] 34 unit SQ AC 04/20/18 Insulin Glargine,Hum.rec.anlog [Lantus] 100 unit SQ HS 04/20/18 Meclizine HCl [Antivert -] 12.5 mg PO Q6HPO PRN #120 tablet 04/20/18 Anemia: Yes Asthma: Yes Cardiac Disorders: Yes (aortic valve replacement) COPD: No DVT: No Diabetes: Yes (IDDM) GI Disorders: Yes (GERD) HTN: Yes Hypercholesterolemia: Yes - Surgical History Cardiac Surgery: Yes (aortic valve replacement) Cholecystectomy: Yes GI Surgery: Yes (cholecystectomy) Orthopedic Surgery: Yes (shoulder sx) - Suicide/Smoking/Psychosocial Hx Smoking History: Never smoked Have you smoked in the past 12 months: No Cigars Per Day: 0 Hx Alcohol Use: No Drug/Substance Use Hx: No Substance Use Type: None Hx Substance Use Treatment: No *Physical Exam - Vital Signs Last Vital Signs Temp Pulse Resp BP Pulse Ox 99.6 F 24 L 96 H 242/78 84 L 06/23/18 19:28 06/23/18 19:28 06/23/18 19:28 06/23/18 19:28 06/23/18 19:28 ED Treatment Course - Medications Given in the ED: ED Medications Discontinued Medications Generic Name Dose Route Start Last Admin Trade Name Freq PRN Reason Stop Dose Admin Albuterol/Ipratropium 1 amp 06/23/18 19:30 06/23/18 19:39 Duoneb - NEB 06/23/18 19:31 1 amp ONCE ONE Administration
--- NOTE | 2018-06-23 19:49 | PDOC ---
Attending Attestation - HPI HPI: 06/23/18 19:58 The patient is a 78 year old female, with a significant past medical history of asthma, HTN, HLD, IDDM, and aortic valve replacement ([facility]), who presents to the emergency department with increased shortness of breath, cough, wheezing , and headache today. She reports her cough is productive of sputum. The patient s family at bedside reports the patient usually becomes hypertensive during asthma exacerbation. She states this feels like her asthma. The patient reports taking her hypertension medication this morning as per her daily routine. Allergies: NKDA Past surgical history: cholecystectomy and aortic valve replacement Social history: Nonsmoker. Denies ETOH use and recreational drug use. Primary Care Physician: Dr. Ayan Kessler Patient Accounts Manager: Dr. Cheung ([phone]) - Medical Decision Making 06/23/18 19:58 Documentation prepared by Karina Wilkins, acting as medical reviewer for Melissa Mattson MD EXAM#: TYPE/EXAM: RESULT: [id number] RAD/CHEST X-RAY PORTABLE* Dyspnea Portable chest x-ray, AP semiupright. Since prior chest x-ray dated , the cardiac silhouette remains within normal limits in size. Bilateral increased interstitial lung markings have worsened since see prior examination suggestive of mild noncardiogenic pulmonary venous congestion or poor respiratory effort. No focal airspace disease is identified. Patient status post median sternotomy. Mediastinum and visualized osseous structures appear intact Impression: Interval worsening interstitial opacities that may be due to poor inspiratory effort. It also may represent noncardiogenic mild pulmonary venous congestion. Interstitial infiltrates cannot be excluded. Follow-up is needed. Reported By: Misty Chacko MD 06/23/182021 <Karina Wilkins - Last Filed: 06/23/18 20:43> - Resident Resident Name: Reznicek,Jarvis - ED Attending Attestation I have performed the following: I have examined & evaluated the patient, The case was reviewed & discussed with the resident, I agree w/resident's findings & plan, Exceptions are as noted - Physicial Exam PE: GENERAL: Awake, alert, and fully oriented. +Mod respiratory distress. HEAD: No signs of trauma EYES: PERRLA, EOMI, sclera anicteric, conjunctiva clear ENT: Auricles normal inspection, hearing grossly normal, nares patent, oropharynx clear without exudates. Moist mucosa NECK: Normal ROM, supple, no lymphadenopathy, JVD, or masses LUNGS: Dec air entry B/L with diffuse exp wheezes and prolonged exp phase. HEART: Regular rate and rhythm, normal S1 and S2, no murmurs, rubs or gallops ABDOMEN: Soft, nontender, normoactive bowel sounds. No guarding, no rebound. No masses EXTREMITIES: Normal range of motion, no edema. No clubbing or cyanosis. No cords, erythema, or tenderness NEUROLOGICAL: Cranial nerves II through XII grossly intact. Normal speech. Motor and sensation intact. SKIN: Warm, Dry, normal turgor, no rashes or lesions noted. - Medical Decision Making 06/23/18 19:53 Pt with known history of asthma, presents with cough, wheezing. She states she took her BP meds today, but her BP is typically elevated when she gets asthma attacks. Denies history of CHF, and there is no extremity swelling on exam. Of note, error on triage vitals- HR is 74 on monitor at bedside, not 24. Will give steroids and nebs. CXR to r/o pna. BP is improving from triage (currently SBP 180s). Await labs to check BNP. 06/23/18 22:20 BNP elevated, CXR shows signs of fluid congestion. Will admit. <Melissa Mattson - Last Filed: 06/23/18 22:21>
[2018-06-23] MEDS ORDERED: methylPREDNISolone NA SUCC 125 MG/2 ML VIAL IVPB ONE (19:50)
--- NOTE | 2018-06-23 19:56 | PDOC ---
History of Present Illness - General Chief Complaint: Shortness of Breath Stated Complaint: ASTHMA Time Seen by Provider: 06/23/18 19:27 History Source: Patient - History of Present Illness Initial Comments: The patient is a 78F with a history of asthma, CAD s/p CABG, and HTN who presents w/ 2d of subjective fevers and worsening dyspnea. The patient has been using her inhaler at home with little relief. On presentation the patient was also HTN to SBP 200s with associated CARLOS described as frontal pressure that does not radiate, is not typical for her, and has been intermittent since yesterday. The patient reports a history of multiple asthma exacerbations requiring hospitalizations. She reports feeling increasingly short of breath. She endorses an associated cough and reports thoracic sharp/cramping pain with the cough. The patient states that she has a history of HTN that has been difficult to control intermittently in the past. She reports being compliant with her current regimen of metoprolol xr, amlodipine, and losartan and took all of her medications today. The patient denies blurry vision, emesis, abdominal pain, diarrhea, dysuria, blood in her urine or stool, or changes in sensation. 06/23/18 19:52 Past History - Past Medical History Allergies/Adverse Reactions: Allergies Allergy/AdvReac Type Severity Reaction Status Date / Time No Known Allergies Allergy Unverified 06/23/18 19:28 Home Medications: Ambulatory Orders Amlodipine Besylate 5 mg PO DAILY 09/07/15 Aspirin [ASA -] 81 mg PO DAILY 09/07/15 Atorvastatin Ca [Lipitor -] 10 mg PO HS 09/07/15 Meclizine HCl 25 mg PO HS 09/07/15 Metoprolol Succinate [Toprol Xl -] 100 mg PO DAILY 09/07/15 Omeprazole [Prilosec (RX)] 20 mg PO DAILY 09/07/15 Zolpidem Tartrate 10 mg PO HS 09/07/15 Amlodipine Besylate 2.5 mg PO DAILY 04/19/18 Aspirin [ASA -] 81 mg PO DAILY 04/19/18 Atorvastatin Ca [Lipitor] 40 mg PO DAILY 04/19/18 Donepezil HCl [Aricept] 5 mg PO DAILY 04/19/18 Losartan/Hydrochlorothiazide [Losartan-Hctz 100-12.5 mg Tab] 1 tab PO DAILY Mirtazapine [Remeron -] 15 mg PO HS 04/19/18 Insulin Glargine,Hum.rec.anlog [Lantus] 34 unit SQ AC 04/20/18 Insulin Glargine,Hum.rec.anlog [Lantus] 100 unit SQ HS 04/20/18 Meclizine HCl [Antivert -] 12.5 mg PO Q6HPO PRN #120 tablet 04/20/18 Anemia: Yes Asthma: Yes Cardiac Disorders: Yes (aortic valve replacement) COPD: No DVT: No Diabetes: Yes (IDDM) GI Disorders: Yes (GERD) HTN: Yes Hypercholesterolemia: Yes - Surgical History Cardiac Surgery: Yes (aortic valve replacement) Cholecystectomy: Yes GI Surgery: Yes (cholecystectomy) Orthopedic Surgery: Yes (shoulder sx) - Suicide/Smoking/Psychosocial Hx Smoking History: Never smoked Have you smoked in the past 12 months: No Cigars Per Day: 0 Hx Alcohol Use: No Drug/Substance Use Hx: No Substance Use Type: None Hx Substance Use Treatment: No Review of Systems - Review of Systems Able to Perform ROS?: Yes Comments:: GENERAL/CONSTITUTIONAL: +subjective fevers and malaise; Denies weakness HEAD, EYES, EARS, NOSE AND THROAT: No change in vision. No ear pain or discharge. No sore throat CARDIOVASCULAR: +SOB and pain w/ coughing RESPIRATORY: per HPI GASTROINTESTINAL: +N; Denies V/C/D GENITOURINARY: No dysuria, frequency, or change in urination MUSCULOSKELETAL: No joint or muscle swelling or pain. No neck or back pain SKIN: No rash NEUROLOGIC: +headache; denies vertigo, loss of consciousness, or change in strength/sensation ENDOCRINE: No increased thirst. No abnormal weight change HEMATOLOGIC/LYMPHATIC: No anemia, easy bleeding, or history of blood clots ALLERGIC/IMMUNOLOGIC: No hives or skin allergy 06/23/18 21:38 Is the patient limited Armenian proficient: No *Physical Exam - Vital Signs Last Vital Signs Temp Pulse Resp BP Pulse Ox 99.6 F 24 L 96 H 242/78 84 L 06/23/18 19:28 06/23/18 19:28 06/23/18 19:28 06/23/18 19:28 06/23/18 19:28 - Physical Exam Comments: GENERAL: Awake, alert, and fully oriented, in moderate distress HEAD: No signs of trauma, normocephalic, atraumatic EYES: PERRL, EOMI, sclera anicteric, conjunctiva clear ENT: Hearing grossly normal, nares patent, oropharynx clear without exudates. Moist mucosa NECK: Normal ROM, supple, no lymphadenopathy LUNGS: In moderate respiratory distress with diffuse b/l wheezing; +cough; patient able to speak in broken sentences; +use of accessory muscles HEART: Regular rate and rhythm, normal S1 and S2, no murmurs appreciated, peripheral pulses normal and equal bilaterally ABDOMEN: Soft, nontender, normoactive bowel sounds. No guarding, no rebound EXTREMITIES : Normal inspection, Normal range of motion, no edema. No clubbing or cyanosis NEUROLOGICAL: Cranial nerves II through XII grossly intact. Appropriate speech , no focal sensorimotor deficits SKIN: Warm, Dry 06/23/18 21:41 ED Treatment Course - LABORATORY CBC & Chemistry Diagram: 06/23/18 20:03 06/23/18 20:03 - RADIOLOGY Radiology Studies Ordered: Category Date Time Status HEAD CT WITHOUT CONTRAST [CT] Stat CT Scan 06/23/18 19:50 Ordered - Medications Given in the ED: ED Medications Discontinued Medications Generic Name Dose Route Start Last Admin Trade Name Freq PRN Reason Stop Dose Admin Albuterol/Ipratropium 1 amp 06/23/18 19:30 06/23/18 19:39 Duoneb - NEB 06/23/18 19:31 1 amp ONCE ONE Administration Medical Decision Making - Medical Decision Making The patient is a 78F with a history of asthma, CAD s/p CABG, and HTN who presents w/ 2d of subjective fevers with worsening dyspnea, and HTN to SBP 200s and associated CARLOS Ddx: CHF exacerbation (acute on chronic) v Asthma exacerbation, possible PNA, ACS, PNX, infection/sepsis; not likely to be repeat CVA ED Course CMP, CBC, BNP, Trop I, Blood Cx, UA ECG, CXR CT Head 06/23/18 21:46 Patient w/ acute respiratory distress requiring NC, no O2 use at home -Will give duo-nebx2 and solumedrol CXR significant for b/l pleural edema and small effusion -Will give NTG SL 0.4mg x1 Patient w/ improved respiratory status s/p nebs and SL NTG BP improved to 160s-180s systolic with improvement in CARLOS Patient saturating in high 90s on face mask; Patient looks more comfortable with improvement in work of breathing BNP w/ mild elevation to [address] w/o evidence of acute bleed Vital Signs Temperature 99.6 F 06/23/18 19:28 Pulse Rate 80 06/23/18 20:45 Respiratory Rate 18 06/23/18 20:45 Blood Pressure 166/69 06/23/18 20:45 O2 Sat by Pulse Oximetry (%) 99 06/23/18 19:30 Plan for admission for CHF exacerbation, HTN, and acute respiratory distress 06/23/18 22:10 *DC/Admit/Observation/Transfer Diagnosis at time of Disposition: Acute respiratory distress, Hypertensive urgency CHF exacerbation Qualifiers: Heart failure type: unspecified Qualified Code(s): I50.9 - Heart failure, unspecified - Discharge Dispostion Condition at time of disposition: Fair Decision to Admit order: Yes - Referrals - Patient Instructions - Post Discharge Activity
[2018-06-23] MEDS: ALBUTEROL SO4 2.5/IPRATROPIUM 0.5 INH SOL 3 ML VIAL.NEB. NEB SCH ×3 (20:06→20:44)
[2018-06-23] MEDS ORDERED: NITROGLYCERIN SUBLINGUAL 1/150 0.4 MG TAB SL ONE (20:14)
[2018-06-23 20:20] LABS: BASO % 0.2 % (0-2.0); EOS % 2.4 % (0-4.5); HEMATOCRIT 30.7 % (32.4-45.2); HEMOGLOBIN 10.1 GM/dL (10.7-15.3); LYMPH % 22.9 % (8-40); MCH 21.3 pg (25.7-33.7); MCHC 32.8 g/dl (32.0-36.0); MEAN PLT VOLUME 8.2 fl (7.5-11.1); MONO % 6.4 % (3.8-10.2); NEUT % 68.1 % (42.8-82.8); PLATELET COUNT 394 K/MM3 (134-434); RBC 4.72 M/mm3 (3.60-5.2); RDW 16.3 % (11.6-15.6); WHITE BLOOD COUNT 9.8 K/mm3 (4.0-10.0)
[2018-06-23 20:23] LABS: ADD RBC MORPHOLOGY YES
[2018-06-23] MEDS ORDERED: NITROGLYCERIN SUBLINGUAL 1/150 0.4 MG TAB ONE (20:33)
[2018-06-23] MEDS ORDERED: methylPREDNISolone NA SUCC 125 MG/2 ML VIAL ONE (20:33)
[2018-06-23 20:58] LABS: ALBUMIN 2.6 g/dl (3.4-5.0); ALK PHOS 107 U/L (45-117); ANION GAP 10 MMOL/L (8-16); BILIRUBIN,TOTAL 0.2 mg/dL (0.2-1); BLOOD UREA NITROGEN 11 mg/dL (7-18); CALCIUM 8.2 mg/dL (8.5-10.1); CHLORIDE 105 mmol/L (98-107); CO2 27 mmol/L (21-32); CREATININE 0.9 mg/dL (0.55-1.3); GLUCOSE,RANDOM 121 mg/dL (74-106); SGOT/AST 27 U/L (15-37); SGPT/ALT 46 U/L (13-61); SODIUM 141 mmol/L (136-145); TOT PROT 6.4 g/dl (6.4-8.2)
[2018-06-23 22:31] LABS: ANISOCYTOSIS 1+; OVALOCYTE 1+
[2018-06-24] MEDS ORDERED: FUROSEMIDE 40 MG/4 ML INJECTABLE VIAL IVPUSH ONE ×3 (00:56→10:18)
[2018-06-24] MEDS ORDERED: FUROSEMIDE 40 MG/4 ML INJECTABLE VIAL ONE ×2 (01:04→10:42)
--- NOTE | 2018-06-24 02:05 | HP ---
CHIEF COMPLAINT: fever, dyspnea PCP: Dr. Sesay Cardio- Dr. Schilling HISTORY OF PRESENT ILLNESS: 78F w/ pmhx of asthma, CAD s/p 1 stent and valve replacement, HTN, DM, HLD, arthritis presented in the ED w/ cough and dyspnea. Pt admits to having dyspnea and sob over the past 2 weeks w/ dry cough. She currently lives alone in a [facility]. She reports recently having shortness of breath while walking down the long hallways of her apartment complex that started 2 weeks ago. Prior, she was able to walk same distances with no problems breathing. Pt also admits to headache, lightheadedness, generalized weakness, and nausea. She denies fainting episodes, vomiting, abd pain, urinary/ bowel symptoms, blood in urine/stool. ER course was notable for: (1) BNP 1381.0, CK (2) (3) Recent Travel: Denies PAST MEDICAL HISTORY: As per HPI PAST SURGICAL HISTORY: L shoulder sx cholecystectomy CAD s/p 1 stent placement, aortic valve replacement Social History: Smoking: Denies Alcohol: Denies Drugs: Denies Family History: Father - DM, HTN Mother - heart disease, asthma Daughter - DM Allergies No Known Allergies Allergy (Unverified 06/23/18 19:28) HOME MEDICATIONS: Home Medications Medication Instructions Recorded Amlodipine Besylate 2.5 mg PO DAILY 04/19/18 Aspirin [ASA -] 81 mg PO DAILY 04/19/18 Atorvastatin Ca [Lipitor] 40 mg PO DAILY 04/19/18 Donepezil HCl [Aricept] 5 mg PO DAILY 04/19/18 Cholecalciferol (Vitamin D3) 2,000 unit PO DAILY 06/24/18 [Vitamin D3] Losartan Potassium 100 mg PO DAILY 06/24/18 Melatonin 10 mg PO PRN 06/24/18 Metoprolol Succinate 50 mg PO DAILY 06/24/18 Mirtazapine 7.5 mg PO DAILY 06/24/18 [place]-3/Dha/Epa/Fish Oil [Fish Oil 06/24/18 [place]-3 EC 1,200 mg] Sitagliptin Phos/Metformin HCl 50 mg PO BID 06/24/18 [Janumet Xr 50-500 mg Tablet] REVIEW OF SYSTEMS CONSTITUTIONAL: +diaphoresis, +generalized weakness Absent: fever, chills, malaise, loss of appetite, weight change HEENT: Absent: rhinorrhea, nasal congestion, throat pain, throat swelling, difficulty swallowing, mouth swelling, ear pain, eye pain, visual changes CARDIOVASCULAR: +chest pressure Absent: chest pain, syncope, palpitations, irregular heart rate, lightheadedness , peripheral edema RESPIRATORY: +cough, shortness of breath, dyspnea with exertion, orthopnea Absent: wheezing, stridor, hemoptysis GASTROINTESTINAL: +nausea Absent: abdominal pain, abdominal distension, vomiting, diarrhea, constipation , melena, hematochezia GENITOURINARY: Absent: dysuria, frequency, urgency, hesitancy, hematuria, flank pain, genital pain MUSCULOSKELETAL: +arthritis Absent: myalgia, arthralgia, joint swelling, back pain, neck pain SKIN: +age spots Absent: rash, itching, pallor HEMATOLOGIC/IMMUNOLOGIC: Absent: easy bleeding, easy bruising, lymphadenopathy, frequent infections ENDOCRINE: Absent: unexplained weight gain, unexplained weight loss, heat intolerance, cold intolerance NEUROLOGIC: +headache Absent: focal weakness or paresthesias, dizziness, unsteady gait, seizure, mental status changes, bladder or bowel incontinence PSYCHIATRIC: Absent: anxiety, depression, suicidal or homicidal ideation, hallucinations. PHYSICAL EXAMINATION Vital Signs - 24 hr 06/23/18 06/23/18 06/23/18 19:28 19:30 20:45 Temperature 99.6 F Pulse Rate 24 L 24 L Pulse Rate [ 80 Left Radial] Respiratory 96 H 18 18 Rate Blood Pressure 242/78 Blood Pressure 166/69 [Left Arm] O2 Sat by Pulse 84 L 99 Oximetry (%) 06/23/18 23:00 Temperature Pulse Rate Pulse Rate [ Left Radial] Respiratory Rate Blood Pressure Blood Pressure 188/69 [Left Arm] O2 Sat by Pulse Oximetry (%) GENERAL: AAOx3. NAD. Diaphoretic. HEENT: AT/NC. EOMI. Moist mucus membranes. No pharyngeal erythema. NECK: Normal range of motion, supple without lymphadenopathy, JVD, or masses. LUNGS: Decreased breath sounds b/l. Expiratory wheezes anteriorly. Accessory muscle use noted. HEART: RRR. Normal S1, S2. No m/r/g noted. ABDOMEN: Obese. Soft, NT/ND. +BS in all 4Qs. No masses/bruits noted. MUSCULOSKELETAL: Normal range of motion at all joints. No bony deformities or tenderness. No CVA tenderness. UPPER EXTREMITIES: 2+ pulses, warm, well-perfused. No cyanosis. No clubbing. No peripheral edema. 5/5 muscle strength b/l. LOWER EXTREMITIES: 2+ pulses, warm, well-perfused. No calf tenderness. No peripheral edema. 5/5 muscle strength b/l. NEUROLOGICAL: Cranial nerves II-XII intact. Normal speech. Gait not observed. CN II-XII intact. PSYCHIATRIC: Cooperative. Good eye contact. Appropriate mood and affect. SKIN: Warm, dry, normal turgor, multiple age spots seen. Laboratory Results - last 24 hr 06/23/18 06/23/18 20:03 20:03 WBC 9.8 RBC 4.72 Hgb 10.1 L Hct 30.7 L MCV 65.0 L MCH 21.3 L MCHC 32.8 RDW 16.3 H Plt Count 394 D MPV 8.2 Absolute Neuts (auto) 6.6 Neutrophils % 68.1 Lymphocytes % 22.9 D Monocytes % 6.4 Eosinophils % 2.4 Basophils % 0.2 Nucleated RBC % 0 Hypochromia 2+ Polychromasia 1+ Anisocytosis 1+ Microcytosis 1+ Ovalocytes 1+ Sodium 141 Potassium 4.0 Chloride 105 Carbon Dioxide 27 Anion Gap 10 BUN 11 Creatinine 0.9 Creat Clearance w eGFR > 60 Random Glucose 121 H Calcium 8.2 L Total Bilirubin 0.2 AST 27 ALT 46 Alkaline Phosphatase 107 Creatine Kinase 298 H Creatine Kinase Index 0.7 CK-MB (CK-2) 2.2 Troponin I < 0.02 B-Natriuretic Peptide 1381.0 H Total Protein 6.4 Albumin 2.6 L ASSESSMENT/PLAN: 78F w/ pmhx of asthma, CAD s/p 1 stent and valve replacement, HTN, DM, HLD, arthritis admitted for new onset CHF exacerbation. #CHF exacerbation -Lasix 40 mg IV given -monitor I/O -daily weights -resume home Metoprolol ER -echo ordered #HTN emergency; Initial BP 272/78 w/ flash pulmonary edema as sign of end organ damage. -cont home BP meds -monitor CMP for liver and kidney fxn #Asthma -duonebs Q4H -Robitussin PRN for cough #DM -hold Janumet -ISS -BGM ACHS #HTN -cont home meds #HLD -cont home meds #CAD -cont home meds #DVT Ppx -Lovenox 40 mg SQ QD #FEN -no IVfs needed -recheck lytes in AM -Diabetic/Sodium controlled diet dispo -med rec'd -Pt [facility] from [facility] Visit type - Emergency Visit Emergency Visit: Yes ED Registration Date: 06/24/18 Care time: The patient presented to the Emergency Department on the above date and was hospitalized for further evaluation of their emergent condition. - New Patient This patient is new to me today: Yes Date on this admission: 06/24/18 - Critical Care Critical Care patient: No Hospitalist Screening - Colonoscopy Questionnaire Colonoscopy Questionnaire: Colonoscopy Questionnaire - Patient: 50 - 75 years old and never had a screening colonoscopy: Unknown History of colon or rectal polyps, or CA: Unknown History of IBD, Crohn's disease or UC: Unknown History of abdominal radiation therapy as a child: Unknown - Relative: 1 with colon or rectal CA, or polyps at age 60 or younger: Unknown Colon or rectal CA diagnosed at age 45 or younger: Unknown Multiple relatives with colon or rectal CA: Unknown - Outcome: Screening Result: Negative Screen
[2018-06-24] MEDS ORDERED: ALBUTEROL SO4 2.5/IPRATROPIUM 0.5 INH SOL 3 ML VIAL.NEB. NEB ONE ×3 (02:58→10:42)
[2018-06-24] MEDS: ALBUTEROL SO4 2.5/IPRATROPIUM 0.5 INH SOL 3 ML VIAL.NEB. NEB SCH ×5 (04:05→20:14)
[2018-06-24 06:33] LABS: BASO % 0.5 % (0-2.0); HEMATOCRIT 30.8 % (32.4-45.2); HEMOGLOBIN 9.9 GM/dL (10.7-15.3); LYMPH % 7.2 % (8-40); MCH 20.9 pg (25.7-33.7); MCHC 32.1 g/dl (32.0-36.0); MEAN CELL VOLUME 65.2 fl (80-96); MEAN PLT VOLUME 7.9 fl (7.5-11.1); MONO % 1.2 % (3.8-10.2); NEUT % 91.1 % (42.8-82.8); PLATELET COUNT 371 K/MM3 (134-434); RBC 4.73 M/mm3 (3.60-5.2); RDW 16.3 % (11.6-15.6); WHITE BLOOD COUNT 10.4 K/mm3 (4.0-10.0)
[2018-06-24] MEDS: INSULIN SLIDING SCALE (NOVOLOG) 1 VIAL SQ SCH ×4 (07:07→21:24)
[2018-06-24 07:10] LABS: ALBUMIN 2.7 g/dl (3.4-5.0); ALK PHOS 107 U/L (45-117); ANION GAP 9 MMOL/L (8-16); BILIRUBIN,TOTAL 0.2 mg/dL (0.2-1); BLOOD UREA NITROGEN 19 mg/dL (7-18); CALCIUM 7.6 mg/dL (8.5-10.1); CHLORIDE 100 mmol/L (98-107); CO2 28 mmol/L (21-32); CREATININE 1.2 mg/dL (0.55-1.3); PHOSPHOROUS 4.2 mg/dL (2.5-4.9); POTASSIUM 4.3 mmol/L (3.5-5.1); SGOT/AST 20 U/L (15-37); SGPT/ALT 42 U/L (13-61); SODIUM 136 mmol/L (136-145); TOT PROT 6.6 g/dl (6.4-8.2)
[2018-06-24 07:15] LABS: GLUCOSE,RANDOM 328 mg/dL (74-106)
[2018-06-24] MEDS ORDERED: INSULIN REGULAR HUMAN 100 UNITS/ML *VIAL ONE (07:18)
--- NOTE | 2018-06-24 07:38 | PN ---
Teaching Attending Note Name of Resident: Jenny Pierce ATTENDING PHYSICIAN STATEMENT I saw and evaluated the patient. I reviewed the resident's note and discussed the case with the resident. I agree with the resident's findings and plan as documented. SUBJECTIVE: 78 F presenting with cough and SOB not relieved with asthma inhaler. PMH: CAD s/ p CABG, HTN and asthma. OBJECTIVE: GEn: A&Ox3 in mild distress HEENT: EOMI, PERRLA, normal oral mucosa, no JVD appreciated CVS: RRR, S1, S2 Lungs: b/l breath sounds diminished, anterior thorax with expiratory wheezing b/ l Abd: Soft, NT, BS+ Ext: no edema CBCD WBC 10.4 K/mm3 (4.0-10.0) H 06/24/18 06:20 RBC 4.73 M/mm3 (3.60-5.2) 06/24/18 06:20 Hgb 9.9 GM/dL (10.7-15.3) L 06/24/18 06:20 Hct 30.8 % (32.4-45.2) L 06/24/18 06:20 MCV 65.2 fl (80-96) L 06/24/18 06:20 MCHC 32.1 g/dl (32.0-36.0) 06/24/18 06:20 RDW 16.3 % (11.6-15.6) H 06/24/18 06:20 Plt Count 371 K/MM3 (134-434) 06/24/18 06:20 MPV 7.9 fl (7.5-11.1) 06/24/18 06:20 CMP Sodium 136 mmol/L (136-145) 06/24/18 06:20 Potassium 4.3 mmol/L (3.5-5.1) 06/24/18 06:20 Chloride 100 mmol/L (98-107) 06/24/18 06:20 Carbon Dioxide 28 mmol/L (21-32) 06/24/18 06:20 Anion Gap 9 MMOL/L (8-16) 06/24/18 06:20 BUN 19 mg/dL (7-18) H 06/24/18 06:20 Creatinine 1.2 mg/dL (0.55-1.3) 06/24/18 06:20 Creat Clearance w eGFR 43.23 (>60) 06/24/18 06:20 Random Glucose 328 mg/dL (74-106) H* 06/24/18 06:20 Calcium 7.6 mg/dL (8.5-10.1) L 06/24/18 06:20 Total Bilirubin 0.2 mg/dL (0.2-1) 06/24/18 06:20 AST 20 U/L (15-37) 06/24/18 06:20 ALT 42 U/L (13-61) 06/24/18 06:20 Alkaline Phosphatase 107 U/L (45-117) 06/24/18 06:20 Total Protein 6.6 g/dl (6.4-8.2) 06/24/18 06:20 Albumin 2.7 g/dl (3.4-5.0) L 06/24/18 06:20 CARDIAC ENZYMES Creatine Kinase 298 IU/L (26-192) H 06/23/18 20:03 Troponin I < 0.02 ng/ml (0.00-0.05) 06/23/18 20:03 ASSESSMENT AND PLAN: Hypertensive Emergency with flash pulmonary edema, new onset CHF Lasix 40mg IVP ECHO Continue home medications Nebs q4h Robitussin PRN for cough DVT prophylaxis Case d/w residents and plans agreed on.
[2018-06-24] MEDS ORDERED: amLODIPine BESYLATE 2.5 MG TABLET (FP) PO SCH (10:00)
[2018-06-24] MEDS ORDERED: PATIENT'S OWN MEDICATION (NON-FORMULARY) (Losartan Potassium [Losartan Potassium] 100 MG) PO SCH (10:00)
[2018-06-24] MEDS ORDERED: INSULIN (LEVEMIR) 100 UNITS/ML UNITS SQ ONE ×2 (10:23→11:04)
[2018-06-24] MEDS ORDERED: predniSONE 20 MG TABLET (UD) ONE (10:41)
[2018-06-24 10:44] LABS: ACANTHOCYTES 1+; ANISOCYTOSIS 2+; MACROCYTOSIS 0; PLATELET ESTIMATE NORMAL
--- NOTE | 2018-06-24 10:52 | EKG ---
Test Reason : Blood Pressure : / mmHG Vent. Rate : 073 BPM Atrial Rate : 073 BPM P-R Int : 176 ms QRS Dur : 092 ms QT Int : 442 ms P-R-T Axes : 070 -36 051 degrees QTc Int : 486 ms NORMAL SINUS RHYTHM LEFT AXIS DEVIATION MINIMAL VOLTAGE CRITERIA FOR LVH, MAY BE NORMAL VARIANT SEPTAL INFARCT , AGE UNDETERMINED ABNORMAL ECG Confirmed by MD SHANAE, ASHLY ([id number]) on 06/24/2018 10:51:53 AM Referred By: Confirmed By:ASHLY JOLLY MD
[2018-06-24] MEDS: DONEPEZIL HCL 5 MG TABLET (FP) PO SCH (10:59)
[2018-06-24] MEDS: ENOXAPARIN NA (PORCINE) 40 MG/0.4 ML DISP.SYRIN SQ SCH (11:00)
[2018-06-24] MEDS: LOSARTAN POTASSIUM 50 MG TABLET (FP) PO SCH (11:00)
[2018-06-24] MEDS: CHOLECALCIFEROL (VITAMIN D3) 1,000 UNIT TABLET (FP) PO SCH (11:00)
[2018-06-24] MEDS: ASPIRIN 81 MG CHEWABLE TABLETS PO SCH (11:00)
[2018-06-24] MEDS: predniSONE 20 MG TABLET (UD) PO SCH (11:01)
--- NOTE | 2018-06-24 12:10 | PN ---
Physical Exam: SUBJECTIVE: Patient seen and examined at bedside this morning. She admits improvement in her breathing, however still complains of nonproductive cough. Admits diffuse chest pain exacerbated with cough. Denies fevers, chills, palpitations, abdominal pain, nausea, vomiting, diarrhea, constipation. OBJECTIVE: Vital Signs Period Temp Pulse Resp BP Sys/Escamilla Pulse Ox Last 24 Hr 98.2 F-99.6 F 24-80 18-96 166-242/69-101 84-99 GENERAL: The patient is awake, alert, and fully oriented, in no acute distress. HEAD: Normal with no signs of trauma. EYES: PERRL, extraocular movements intact, sclera anicteric, conjunctiva noninjected b/l. ENT: Oropharynx clear without exudates, moist mucous membranes. NECK: Supple without lymphadenopathy or thyromegaly. LUNGS: Poor inspiratory effort, and poor air entery b/l. Faint wheezing in b/l lower lobes auscultated. No accessory muscle use. HEART: Regular rate and rhythm, S1, S2 without murmur, rub or gallop. ABDOMEN: Soft, obese. Nontender to palpation. Normoactive bowel sounds, no guarding, no rebound, no hepatosplenomegaly. EXTREMITIES: 2+ radial and dorsalis pedis pulses b/l. Warm. NEUROLOGICAL: Cranial nerves II through XII grossly intact. Normal speech. Strength 5/5 b/l upper and lower extremities. No gross focal deficits. PSYCH: Mood and affect appropriate upon my encounter today. SKIN: Warm, dry, normal turgor, no rashes or lesions noted Laboratory Results - last 24 hr 06/23/18 06/23/18 06/24/18 20:03 20:03 06:20 WBC 9.8 10.4 H RBC 4.72 4.73 Hgb 10.1 L 9.9 L Hct 30.7 L 30.8 L MCV 65.0 L 65.2 L MCH 21.3 L 20.9 L MCHC 32.8 32.1 RDW 16.3 H 16.3 H Plt Count 394 D 371 MPV 8.2 7.9 Absolute Neuts (auto) 6.6 9.5 H Neutrophils % 68.1 91.1 H D Neutrophils % (Manual) 89.8 H Band Neutrophils % 1.0 Lymphocytes % 22.9 D 7.2 L D Lymphocytes % (Manual) 6.1 L Monocytes % 6.4 1.2 L D Monocytes % (Manual) 0 L Eosinophils % 2.4 0.0 D Eosinophils % (Manual) 0.0 Basophils % 0.2 0.5 Basophils % (Manual) 0.0 Myelocytes % (Man) 2 Promyelocytes % (Man) 0 Blast Cells % (Manual) 0 Nucleated RBC % 0 0 Metamyelocytes 0 Hypochromia 2+ 1+ Platelet Estimate Normal Polychromasia 1+ 0 Poikilocytosis 3+ Anisocytosis 1+ 2+ Microcytosis 1+ 2+ Macrocytosis 0 Ovalocytes 1+ Acanthocytes (Spur) 1+ Schistocytes 1+ Sodium 141 Potassium 4.0 Chloride 105 Carbon Dioxide 27 Anion Gap 10 BUN 11 Creatinine 0.9 Creat Clearance w eGFR > 60 POC Glucometer Random Glucose 121 H Hemoglobin A1c % Calcium 8.2 L Phosphorus Magnesium Total Bilirubin 0.2 AST 27 ALT 46 Alkaline Phosphatase 107 Creatine Kinase 298 H Creatine Kinase Index 0.7 CK-MB (CK-2) 2.2 Troponin I < 0.02 B-Natriuretic Peptide 1381.0 H Total Protein 6.4 Albumin 2.6 L 06/24/18 06/24/18 06/24/18 06:20 06:20 06:20 WBC RBC Hgb Hct MCV MCH MCHC RDW Plt Count MPV Absolute Neuts (auto) Neutrophils % Neutrophils % (Manual) Band Neutrophils % Lymphocytes % Lymphocytes % (Manual) Monocytes % Monocytes % (Manual) Eosinophils % Eosinophils % (Manual) Basophils % Basophils % (Manual) Myelocytes % (Man) Promyelocytes % (Man) Blast Cells % (Manual) Nucleated RBC % Metamyelocytes Hypochromia Platelet Estimate Polychromasia Poikilocytosis Anisocytosis Microcytosis Macrocytosis Ovalocytes Acanthocytes (Spur) Schistocytes Sodium 136 Potassium 4.3 Chloride 100 Carbon Dioxide 28 Anion Gap 9 BUN 19 H Creatinine 1.2 Creat Clearance w eGFR 43.23 POC Glucometer Random Glucose 328 H* Hemoglobin A1c % 8.5 H Calcium 7.6 L Phosphorus 4.2 Magnesium 2.0 Total Bilirubin 0.2 AST 20 ALT 42 Alkaline Phosphatase 107 Creatine Kinase Creatine Kinase Index CK-MB (CK-2) Troponin I < 0.02 Cancelled B-Natriuretic Peptide Total Protein 6.6 Albumin 2.7 L 06/24/18 07:06 WBC RBC Hgb Hct MCV MCH MCHC RDW Plt Count MPV Absolute Neuts (auto) Neutrophils % Neutrophils % (Manual) Band Neutrophils % Lymphocytes % Lymphocytes % (Manual) Monocytes % Monocytes % (Manual) Eosinophils % Eosinophils % (Manual) Basophils % Basophils % (Manual) Myelocytes % (Man) Promyelocytes % (Man) Blast Cells % (Manual) Nucleated RBC % Metamyelocytes Hypochromia Platelet Estimate Polychromasia Poikilocytosis Anisocytosis Microcytosis Macrocytosis Ovalocytes Acanthocytes (Spur) Schistocytes Sodium Potassium Chloride Carbon Dioxide Anion Gap BUN Creatinine Creat Clearance w eGFR POC Glucometer [phone] Random Glucose Hemoglobin A1c % Calcium Phosphorus Magnesium Total Bilirubin AST ALT Alkaline Phosphatase Creatine Kinase Creatine Kinase Index CK-MB (CK-2) Troponin I B-Natriuretic Peptide Total Protein Albumin Active Medications Generic Name Dose Route Start Last Admin Trade Name Freq PRN Reason Stop Dose Admin Albuterol/Ipratropium 1 amp 06/24/18 04:00 06/24/18 10:59 Duoneb - NEB 1 amp Q4HPO YISEL Administration Amlodipine Besylate 2.5 mg 06/24/18 10:00 06/24/18 11:00 Norvasc - PO 2.5 mg DAILY YISEL Administration Aspirin 81 mg 06/24/18 10:00 06/24/18 11:00 Asa - PO 81 mg DAILY YISEL Administration Atorvastatin Calcium 40 mg 06/24/18 22:00 Lipitor - PO HS YISEL Cholecalciferol 2,000 unit 06/24/18 10:00 06/24/18 11:00 Vitamin D3 - PO 2,000 unit DAILY YISEL Administration Donepezil HCl 5 mg 06/24/18 10:00 06/24/18 10:59 Aricept - PO 5 mg DAILY YISEL Administration Enoxaparin Sodium 40 mg 06/24/18 10:00 06/24/18 11:00 Lovenox - SQ 40 mg DAILY YISEL Administration Guaifenesin 5 ml 06/24/18 04:00 Diabetic Tussin Dm - PO Q6H PRN COUGH Insulin Aspart 1 vial 06/24/18 07:00 06/24/18 11:20 Novolog Vial Sliding Scale - SQ 4 unit ACHS YISEL Administration Protocol Insulin Detemir 10 units 06/25/18 07:00 Levemir Vial SQ AM YISEL Losartan Potassium 100 mg 06/24/18 10:00 06/24/18 11:00 Cozaar - PO 100 mg DAILY YISEL Administration Melatonin 10 mg 06/24/18 22:00 Melatonin PO HS PRN INSOMNIA Metoprolol Succinate 50 mg 06/24/18 10:00 06/24/18 11:00 Toprol Xl - PO 50 mg DAILY YISEL Administration Mirtazapine 7.5 mg 06/24/18 22:00 Remeron - PO HS YISEL Prednisone 40 mg 06/24/18 10:30 06/24/18 11:01 Deltasone - PO 40 mg DAILY YISEL Administration ASSESSMENT/PLAN: Patient is an 78 year old female with history of asthma, hypertension, hyperlipidemia, diabetes, coronary artery disease s/p 1 stent and aortic valve replacement presents with complaint of shortness of breath, and nonproductive cough for the past week. Asthma exacerbation -Duonebs Q6H PRN -Prednisone 40mg PO daily -Advair 1 puff INH BID CHF -Lasix 40mg given in ED. Additional 20mg IV today -Continue Metoprolol XL 50mg PO daily -ECHO shows: LV normal in size, minld concentric LVH, systolic function normal. Trace MR. Trace TR. 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 DM -ISS -BGM ACHS -Levemir 10mg SQ daily in AM HTN -Hypertensive emergency in ED with BP 242/78 and pulmonary edema. BP at 150/75 now. -Amlodipine 2.5mg PO daily -Continue Metoprolol XL 50mg PO daily -Continue Losartan 100mg PO daily -Will follow BP closely HLD -Continue Atorvastatin 40mg PO HS CAD -Continue Aspirin 81mg PO daily Alzheimer dementia -Donepezil 5mg PO daily Anxiety -Mirtazapine 7.5mg PO HS FEN -No IV fluids. Patient tolerates oral intake. Encourage judicious oral hydration. -Will follow CMP -Diabetic, salt controlled diet Prophylaxis -Lovenox 40mg SQ daily Disposition -Continue care in medical-surgical floor Visit type - Emergency Visit Emergency Visit: Yes ED Registration Date: 06/24/18 Care time: The patient presented to the Emergency Department on the above date and was hospitalized for further evaluation of their emergent condition. - New Patient This patient is new to me today: Yes Date on this admission: 06/24/18 - Critical Care Critical Care patient: No - Discharge Referral Referred to [facility] Med P.C.: No
[2018-06-24] MEDS ORDERED: ALBUTEROL SO4 2.5/IPRATROPIUM 0.5 INH SOL 3 ML VIAL.NEB. NEB PRN (13:59)
--- NOTE | 2018-06-24 13:59 | PN ---
Teaching Attending Note Name of Resident: Patrick Maya ATTENDING PHYSICIAN STATEMENT I saw and evaluated the patient. I reviewed the resident's note and discussed the case with the resident. I agree with the resident's findings and plan as documented. SUBJECTIVE: No fever or chills. No abd pain, has SOB , has been tachypnic and SOB x 2 weeks. cough with clear sputum production . no C , no dysuria . OBJECTIVE: tachypnic, cough , audible wheezing . CV: RRR, no MRG . minimal JVD Lungs: good air entry, decreased breath sounds at bases, prolonged exp phase. minimal crackles. Ext: no edema . ASSESSMENT AND PLAN: 78 y/o lady with h/o Asthma, HTN, CAD, CABG, OA, HLP, DM who presented with SOB and was found to have severe HTN 1- HTN emergency , ( pulmonary edema) . no change in BP meds , and no change in salt intake. suspect that asthma exacerbation has caused the BP elevation - cont her home meds. losartan, norvasc , and metorpolol. if needed can increase norvasc . - monitor - repeat trop - follow Echo report 2- SOB , due to acute Asthma exacerbation . There is a component of flash pulm edema from severe HTN. received a dose of lasix in ER. - give one more dose of lasix 20 mg, then likely there is no more need for diuresis - start prednisone taper - add PRN Nebs - add Advair. 3- DM : - add levemir 10 while on steroids - hold po meds - SSI - check A1c 4- DVT PX
[2018-06-24] MEDS ORDERED: ALBUTEROL SO4 2.5/IPRATROPIUM 0.5 INH SOL 3 ML VIAL.NEB. NEB SCH (14:00)
--- NOTE | 2018-06-24 14:11 | ECHO ---
Name: ANGEL LUIS RUSSO Exam:Adult Echocardiogram Study Date: 06/24/2018 08:37 AM Age: 78 yrs Reason For Study: CHF Height: 60 in Weight: 173 lb BSA: 1.8 m2 MMode/2D Measurements & Calculations IVSd: 1.2 cm Ao root diam: 1.9 cm LVIDd: 3.9 cm LA dimension: 3.8 cm LVIDs: 2.8 cm LVPWd: 1.0 cm EDV(Teich): 66.3 ml LAV (MOD-bp): 49.2 ml ESV(Teich): 29.5 ml Doppler Measurements & Calculations MV E max parish: 111.0 cm/sec Ao V2 max: 271.5 cm/sec MV A max parish: 118.7 cm/sec Ao max P.5 mmHg MV E/A: 0.93 Ao V2 mean: 190.8 cm/sec MV dec time: 0.12 sec Ao mean P.8 mmHg Ao V2 VTI: 60.8 cm LV V1 max P.8 mmHg TR max parish: 216.2 cm/sec LV V1 mean P.5 mmHg TR max P.8 mmHg LV V1 max: 83.9 cm/sec LV V1 mean: 56.6 cm/sec LV V1 VTI: 17.3 cm Med Peak E' [place]: 5.4 cm/sec PI Vmax: 130.3 cm/sec Med E/e': 20.4 Lat Peak E' [place]: 7.3 cm/sec Lat E/e': 15.2 Procedure A complete two-dimensional transthoracic echocardiogram was performed (2D, M-mode, Doppler and color flow Doppler). The study was technically difficult with many images being suboptimal in quality. The patie nt was in normal sinus rhythm during the exam. Left Ventricle The left ventricle is normal in size. There is mild concentric left ventricular hypertrophy. Left nati tricular systolic function is normal. Ejection Fraction = 55%. The transmitral spectral Doppler flow pattern i s suggestive of impaired LV relaxation. Right Ventricle The right ventricle is normal in size and function. Atria The left atrium is mildly dilated. Right atrial size is normal. Mitral Valve There is mild to moderate mitral valve thickening. There is trace mitral regurgitation. Tricuspid Valve The tricuspid valve is not well visualized, but is grossly normal. There is trace tricuspid regurgita tion. Right ventricular systolic pressure is normal. Aortic Valve There is a prosthetic aortic valve. Aortic max pressure gradient= 31. Aortic mean pressure gradient= 17.6. Trace aortic regurgitation. Pulmonic Valve The pulmonic valve is not well visualized. Great Vessels The aortic root is normal size. Pericardium/Pleura There is no pericardial effusion. Interpretation Summary The study was technically difficult with many images being suboptimal in quality. A complete two-dimensional transthoracic echocardiogram was performed (2D, M-mode, Doppler and color flow Doppler). The left ventricle is normal in size. There is mild concentric left ventricular hypertrophy. Left ventricular systolic function is normal. The right ventricle is normal in size and function. The left atrium is mildly dilated. There is trace mitral regurgitation. There is trace tricuspid regurgitation. There is a prosthetic aortic valve. Aortic max pressure gradient= 31 Aortic mean pressure gradient= 17.6 Trace aortic regurgitation. There is no pericardial effusion. The transmitral spectral Doppler flow pattern is suggestive of impaired LV relaxation. MD Nguyễn Cabrera 06/24/2018 02:11 PM
[2018-06-24 16:29] VITALS: BMI 34.0
[2018-06-24] MEDS: MIRTAZAPINE 15 MG TABLET (FP) PO SCH (21:22)
[2018-06-24] MEDS: ATORVASTATIN CA 40 MG TABLET (FP) PO SCH (21:23)
[2018-06-24] MEDS: MELATONIN 5 MG TABLETS PO PRN (21:23)
[2018-06-24] MEDS: FLUTICASONE/SALMETEROL 100 MCG/50 MCG DISKUS IH SCH (21:59)
[2018-06-24] MEDS: guaiFENesin/D-M SUGAR-FREE/ACLHOL-FREE 118 ML BOTTLE PO PRN (21:59)
[2018-06-24 23:26] LABS: URINE APPEARANCE CLEAR; URINE BILIRUBIN NEGATIVE (<2.0 mg/dL); URINE COLOR LTYELLOW; URINE GLUCOSE (UA) 3+ (NEGATIVE); URINE KETONE NEGATIVE (NEGATIVE); URINE LEUK ESTERASE NEGATIVE (NEGATIVE); URINE NITRITE NEGATIVE (NEGATIVE); URINE UROBILINOGEN NEGATIVE mg/dL (0.2-1.0)
[2018-06-24 23:27] LABS: URINE PROTEIN 1+ (NEGATIVE)
[2018-06-24 23:30] LABS: EPI CELLS RARE /HPF (FEW)
[2018-06-25] MEDS: INSULIN SLIDING SCALE (NOVOLOG) 1 VIAL SQ SCH ×6 (06:21→21:39)
[2018-06-25] MEDS ORDERED: amLODIPine BESYLATE 5 MG TABLET (FP) PO ONE (06:32)
[2018-06-25] MEDS ORDERED: INSULIN (NOVOLOG) ASPART 100 UNITS/ML 10ML VIAL ONE ×2 (06:45→21:36)
[2018-06-25] MEDS ORDERED: INSULIN (LEVEMIR) 100 UNITS/ML UNITS SQ SCH ×2 (07:00→10:00)
[2018-06-25 07:10] LABS: HEMATOCRIT 27.7 % (32.4-45.2); HEMOGLOBIN 9.1 GM/dL (10.7-15.3); MCH 21.2 pg (25.7-33.7); MCHC 32.8 g/dl (32.0-36.0); MEAN CELL VOLUME 64.8 fl (80-96); MEAN PLT VOLUME 8.1 fl (7.5-11.1); PLATELET COUNT 334 K/MM3 (134-434); RBC 4.27 M/mm3 (3.60-5.2); RDW 16.7 % (11.6-15.6); WHITE BLOOD COUNT 10.4 K/mm3 (4.0-10.0)
[2018-06-25] MEDS: ALBUTEROL SO4 2.5/IPRATROPIUM 0.5 INH SOL 3 ML VIAL.NEB. NEB SCH ×4 (07:38→20:27)
[2018-06-25 07:44] LABS: ALBUMIN 2.5 g/dl (3.4-5.0); ALK PHOS 86 U/L (45-117); ANION GAP 6 MMOL/L (8-16); BILIRUBIN,TOTAL 0.2 mg/dL (0.2-1); BLOOD UREA NITROGEN 27 mg/dL (7-18); CHLORIDE 103 mmol/L (98-107); CO2 29 mmol/L (21-32); CREATININE 1.1 mg/dL (0.55-1.3); GLUCOSE,RANDOM 214 mg/dL (74-106); MAGNESIUM 2.5 mg/dL (1.8-2.4); PHOSPHOROUS 4.3 mg/dL (2.5-4.9); POTASSIUM 4.2 mmol/L (3.5-5.1); SGOT/AST 18 U/L (15-37); SGPT/ALT 37 U/L (13-61); SODIUM 139 mmol/L (136-145); TOT PROT 5.9 g/dl (6.4-8.2)
--- NOTE | 2018-06-25 08:25 | PN ---
Physical Exam: SUBJECTIVE: Patient seen and examined at bedside this morning. She was receiving nebulizer treatment which she admits is improving her breathing. Still complains of nonproductive cough that awoke her overnight. Temporarily palliated with Guaifenesin. Admits improvement diffuse chest pain, exacerbated with cough. Denies fevers, chills, palpitations, abdominal pain, nausea, vomiting, diarrhea, constipation. OBJECTIVE: Vital Signs Period Temp Pulse Resp BP Sys/Escamilla Pulse Ox Last 24 Hr 97.8 F-98.9 F 72-94 20-22 107-194/65-82 95-95 GENERAL: The patient is awake, alert, and fully oriented, resting comfortably in bed, no acute distress. HEAD: Normal with no signs of trauma. EYES: PERRL, extraocular movements intact, sclera anicteric, conjunctiva noninjected b/l. ENT: Oropharynx clear without exudates, moist mucous membranes. NECK: Supple without lymphadenopathy or thyromegaly. LUNGS: Poor inspiratory effort, and improving air entery b/l. Faint wheezing in b/l lower lobes auscultated. No accessory muscle use. HEART: Regular rate and rhythm, S1, S2 without murmur, rub or gallop. ABDOMEN: Soft, obese. Nontender to palpation. Normoactive bowel sounds, no guarding, no rebound, no hepatosplenomegaly. EXTREMITIES: 2+ radial and dorsalis pedis pulses b/l. Warm. NEUROLOGICAL: Cranial nerves II through XII grossly intact. Normal speech. Strength 5/5 b/l upper and lower extremities. No gross focal deficits. PSYCH: Mood and affect appropriate upon my encounter today. SKIN: Warm, dry, normal turgor, no rashes or lesions noted Laboratory Results - last 24 hr 06/24/18 06/24/18 06/24/18 06:20 06:20 06:20 WBC RBC Hgb Hct MCV MCH MCHC RDW Plt Count MPV Neutrophils % (Manual) 89.8 H Band Neutrophils % 1.0 Lymphocytes % (Manual) 6.1 L Monocytes % (Manual) 0 L Eosinophils % (Manual) 0.0 Basophils % (Manual) 0.0 Myelocytes % (Man) 2 Promyelocytes % (Man) 0 Blast Cells % (Manual) 0 Metamyelocytes 0 Hypochromia 1+ Platelet Estimate Normal Polychromasia 0 Poikilocytosis 3+ Anisocytosis 2+ Microcytosis 2+ Macrocytosis 0 Acanthocytes (Spur) 1+ Schistocytes 1+ Sodium 136 Potassium 4.3 Chloride 100 Carbon Dioxide 28 Anion Gap 9 BUN 19 H Creatinine 1.2 Creat Clearance w eGFR 43.23 POC Glucometer Random Glucose 328 H* Hemoglobin A1c % 8.5 H Calcium 7.6 L Phosphorus 4.2 Magnesium 2.0 Total Bilirubin 0.2 AST 20 ALT 42 Alkaline Phosphatase 107 Troponin I < 0.02 Total Protein 6.6 Albumin 2.7 L Urine Color Urine Appearance Urine pH Ur Specific [place] Urine Protein Urine Glucose (UA) Urine Ketones Urine Blood Urine Nitrite Urine Bilirubin Urine Urobilinogen Ur Leukocyte Esterase Urine WBC (Auto) Urine RBC (Auto) Ur Epithelial Cells 06/24/18 06/24/18 06/24/18 06:20 10:50 17:29 WBC RBC Hgb Hct MCV MCH MCHC RDW Plt Count MPV Neutrophils % (Manual) Band Neutrophils % Lymphocytes % (Manual) Monocytes % (Manual) Eosinophils % (Manual) Basophils % (Manual) Myelocytes % (Man) Promyelocytes % (Man) Blast Cells % (Manual) Metamyelocytes Hypochromia Platelet Estimate Polychromasia Poikilocytosis Anisocytosis Microcytosis Macrocytosis Acanthocytes (Spur) Schistocytes Sodium Potassium Chloride Carbon Dioxide Anion Gap BUN Creatinine Creat Clearance w eGFR POC Glucometer [phone] Random Glucose Hemoglobin A1c % Calcium Phosphorus Magnesium Total Bilirubin AST ALT Alkaline Phosphatase Troponin I Cancelled Total Protein Albumin Urine Color Urine Appearance Urine pH Ur Specific [place] Urine Protein Urine Glucose (UA) Urine Ketones Urine Blood Urine Nitrite Urine Bilirubin Urine Urobilinogen Ur Leukocyte Esterase Urine WBC (Auto) Urine RBC (Auto) Ur Epithelial Cells 06/24/18 06/24/18 06/25/18 21:55 22:48 06:00 WBC 10.4 H RBC 4.27 Hgb 9.1 L Hct 27.7 L MCV 64.8 L MCH 21.2 L MCHC 32.8 RDW 16.7 H Plt Count 334 MPV 8.1 Neutrophils % (Manual) Band Neutrophils % Lymphocytes % (Manual) Monocytes % (Manual) Eosinophils % (Manual) Basophils % (Manual) Myelocytes % (Man) Promyelocytes % (Man) Blast Cells % (Manual) Metamyelocytes Hypochromia Platelet Estimate Polychromasia Poikilocytosis Anisocytosis Microcytosis Macrocytosis Acanthocytes (Spur) Schistocytes Sodium Potassium Chloride Carbon Dioxide Anion Gap BUN Creatinine Creat Clearance w eGFR POC Glucometer 363 Random Glucose Hemoglobin A1c % Calcium Phosphorus Magnesium Total Bilirubin AST ALT Alkaline Phosphatase Troponin I Total Protein Albumin Urine Color Ltyellow Urine Appearance Clear Urine pH 5.0 Ur Specific [place] 1.017 Urine Protein 1+ H Urine Glucose (UA) 3+ H Urine Ketones Negative Urine Blood Negative Urine Nitrite Negative Urine Bilirubin Negative Urine Urobilinogen Negative Ur Leukocyte Esterase Negative Urine WBC (Auto) 1 Urine RBC (Auto) <1 Ur Epithelial Cells Rare 06/25/18 06/25/18 06:00 06:11 WBC RBC Hgb Hct MCV MCH MCHC RDW Plt Count MPV Neutrophils % (Manual) Band Neutrophils % Lymphocytes % (Manual) Monocytes % (Manual) Eosinophils % (Manual) Basophils % (Manual) Myelocytes % (Man) Promyelocytes % (Man) Blast Cells % (Manual) Metamyelocytes Hypochromia Platelet Estimate Polychromasia Poikilocytosis Anisocytosis Microcytosis Macrocytosis Acanthocytes (Spur) Schistocytes Sodium 139 Potassium 4.2 Chloride 103 Carbon Dioxide 29 Anion Gap 6 L BUN 27 H Creatinine 1.1 Creat Clearance w eGFR 47.79 POC Glucometer 238 Random Glucose 214 H Hemoglobin A1c % Calcium 8.0 L Phosphorus 4.3 Magnesium 2.5 H Total Bilirubin 0.2 AST 18 ALT 37 Alkaline Phosphatase 86 Troponin I Total Protein 5.9 L Albumin 2.5 L Urine Color Urine Appearance Urine pH Ur Specific [place] Urine Protein Urine Glucose (UA) Urine Ketones Urine Blood Urine Nitrite Urine Bilirubin Urine Urobilinogen Ur Leukocyte Esterase Urine WBC (Auto) Urine RBC (Auto) Ur Epithelial Cells Active Medications Generic Name Dose Route Start Last Admin Trade Name Freq PRN Reason Stop Dose Admin Albuterol/Ipratropium 1 amp 06/24/18 13:59 06/25/18 01:54 Duoneb - NEB 1 amp Q6H PRN Administration SHORTNESS OF BREATH Albuterol/Ipratropium 1 amp 06/24/18 14:47 06/25/18 07:38 Duoneb - NEB 1 amp RQID YISEL Administration Amlodipine Besylate 2.5 mg 06/24/18 10:00 06/24/18 11:00 Norvasc - PO 2.5 mg DAILY YISEL Administration Aspirin 81 mg 06/24/18 10:00 06/24/18 11:00 Asa - PO 81 mg DAILY YISEL Administration Atorvastatin Calcium 40 mg 06/24/18 22:00 06/24/18 21:23 Lipitor - PO 40 mg HS YISEL Administration Cholecalciferol 2,000 unit 06/24/18 10:00 06/24/18 11:00 Vitamin D3 - PO 2,000 unit DAILY YISEL Administration Donepezil HCl 5 mg 06/24/18 10:00 06/24/18 10:59 Aricept - PO 5 mg DAILY YISEL Administration Enoxaparin Sodium 40 mg 06/24/18 10:00 06/24/18 11:00 Lovenox - SQ 40 mg DAILY YISEL Administration Guaifenesin 5 ml 06/24/18 04:00 06/24/18 21:59 Diabetic Tussin Dm - PO 5 ml Q6H PRN Administration COUGH Insulin Aspart 1 vial 06/24/18 07:00 06/25/18 06:21 Novolog Vial Sliding Scale - SQ 4 units ACHS YISEL Administration Protocol Insulin Detemir 10 units 06/25/18 10:00 Levemir Vial SQ BID YISEL Losartan Potassium 100 mg 06/24/18 10:00 06/24/18 11:00 Cozaar - PO 100 mg DAILY YISEL Administration Melatonin 10 mg 06/24/18 22:00 06/24/18 21:23 Melatonin PO 10 mg HS PRN Administration INSOMNIA Metoprolol Succinate 50 mg 06/24/18 10:00 06/24/18 11:00 Toprol Xl - PO 50 mg DAILY YISEL Administration Mirtazapine 7.5 mg 06/24/18 22:00 06/24/18 21:22 Remeron - PO 7.5 mg HS YISEL Administration Prednisone 40 mg 06/24/18 10:30 06/24/18 11:01 Deltasone - PO 40 mg DAILY YISEL Administration Fluticasone/Salmeterol 1 puff 06/24/18 22:00 06/24/18 21:59 Advair 100mcg/50mcg - IH 1 puff BID YISEL Administration EKG: Normal sinus rhythm at 73 beats per minute. Left [place] deviation, LVH noted. QTc 486. Chest Xray (admission): Interstitial opacities, due to poor inspiratory effort vs. pulmonary venous congestion. CT head: No acute infarct, intracranial pathology, or hemorrhage. Chest Xray (06/25): Left basilar opacification, blunting of left costophrenic angle ?pleural effusion. ASSESSMENT/PLAN: Patient is an 78 year old female with history of asthma, hypertension, hyperlipidemia, diabetes, coronary artery disease s/p 1 stent and aortic valve replacement presents with complaint of shortness of breath, and nonproductive cough for the past week. Asthma exacerbation -Improving. Patient admits improvement with breathing, and improved inspiratory effort. -Duonebs Q6H PRN -Solu-medrol 40mg IV Q6H -Advair 1 puff INH BID -Guaifenesin 5mL PO Q6H for cough Possible pneumonia -Pulmonology consult (Dr. Potter) appreciated: Will start patient on Ceftriaxone 1gm IV daily. -F/U CXR tomorrow CHF -Lasix 40mg given in ED. Additional 20mg IV today -Continue Metoprolol XL 50mg PO daily -ECHO shows: LV normal in size, minld concentric LVH, systolic function normal. Trace MR. Trace TR. 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 DM -ISS Q4H -BGM Q4H -Levemir 15mg SQ daily in AM HTN -Hypertensive emergency in ED with BP 242/78 and pulmonary edema. -BP at 142/67 today -Amlodipine home dose 2.5mg increased to 5mg today. -Continue Metoprolol XL 50mg PO daily -Continue Losartan 100mg PO daily -Will follow BP closely HLD -Continue Atorvastatin 40mg PO HS CAD -Continue Aspirin 81mg PO daily Alzheimer dementia -Donepezil 5mg PO daily Anxiety -Mirtazapine 7.5mg PO HS FEN -No IV fluids. Patient tolerates oral intake. Encourage judicious oral hydration. -Will follow CMP -Diabetic, salt controlled diet Prophylaxis -Lovenox 40mg SQ daily Disposition -Continue care in medical-surgical floor Visit type - Emergency Visit Emergency Visit: Yes ED Registration Date: 06/24/18 Care time: The patient presented to the Emergency Department on the above date and was hospitalized for further evaluation of their emergent condition. - New Patient This patient is new to me today: No - Critical Care Critical Care patient: No - Discharge Referral Referred to [facility] Med P.C.: No
[2018-06-25] MEDS ORDERED: PT OWN MED DRAWER 7, Y5N ONE ×3 (08:58→17:04)
--- NOTE | 2018-06-25 09:03 | PN ---
Teaching Attending Note Name of Resident: Patrick Maya ATTENDING PHYSICIAN STATEMENT I saw and evaluated the patient. I reviewed the resident's note and discussed the case with the resident. I agree with the resident's findings and plan as documented. SUBJECTIVE: Patient is feeling better today, but continues to have shortness of breath on and off but nebulizer treatments are helping. OBJECTIVE: Vital Signs Temperature 97.8 F 06/25/18 06:00 Pulse Rate 72 06/25/18 06:00 Respiratory Rate 22 H 06/25/18 06:00 Blood Pressure 194/82 H 06/25/18 06:00 O2 Sat by Pulse Oximetry (%) 95 06/24/18 21:00 GENERAL: The patient is awake, alert, oriented x3 , resting comfortably in bed , no acute distress. HEAD: Normal with no signs of trauma. EYES: PERRL, extraocular movements intact, sclera anicteric. ENT: Oropharynx clear without exudates, moist mucous membranes. NECK: Supple without lymphadenopathy or thyromegaly. LUNGS: decreased air entry BL. No accessory muscle use. HEART: Regular rate and rhythm, S1, S2 positive , no rub or gallop. ABDOMEN: Soft, obese. Nontender to palpation. Normoactive bowel sounds, no guarding, no rebound, no hepatosplenomegaly. EXTREMITIES: 2+ radial and dorsalis pedis pulses b/l. Warm. NEUROLOGICAL: Cranial nerves II through XII grossly intact. Normal speech. PSYCH: Mood and affect appropriate upon my encounter today. SKIN: Warm, dry, normal turgor, no rashes or lesions noted CBCD WBC 10.4 K/mm3 (4.0-10.0) H 06/25/18 06:00 RBC 4.27 M/mm3 (3.60-5.2) 06/25/18 06:00 Hgb 9.1 GM/dL (10.7-15.3) L 06/25/18 06:00 Hct 27.7 % (32.4-45.2) L 06/25/18 06:00 MCV 64.8 fl (80-96) L 06/25/18 06:00 MCHC 32.8 g/dl (32.0-36.0) 06/25/18 06:00 RDW 16.7 % (11.6-15.6) H 06/25/18 06:00 Plt Count 334 K/MM3 (134-434) 06/25/18 06:00 MPV 8.1 fl (7.5-11.1) 06/25/18 06:00 CMP Sodium 139 mmol/L (136-145) 06/25/18 06:00 Potassium 4.2 mmol/L (3.5-5.1) 06/25/18 06:00 Chloride 103 mmol/L (98-107) 06/25/18 06:00 Carbon Dioxide 29 mmol/L (21-32) 06/25/18 06:00 Anion Gap 6 MMOL/L (8-16) L 06/25/18 06:00 BUN 27 mg/dL (7-18) H 06/25/18 06:00 Creatinine 1.1 mg/dL (0.55-1.3) 06/25/18 06:00 Creat Clearance w eGFR 47.79 (>60) 06/25/18 06:00 Random Glucose 214 mg/dL (74-106) H 06/25/18 06:00 Calcium 8.0 mg/dL (8.5-10.1) L 06/25/18 06:00 Total Bilirubin 0.2 mg/dL (0.2-1) 06/25/18 06:00 AST 18 U/L (15-37) 06/25/18 06:00 ALT 37 U/L (13-61) 06/25/18 06:00 Alkaline Phosphatase 86 U/L (45-117) 06/25/18 06:00 Total Protein 5.9 g/dl (6.4-8.2) L 06/25/18 06:00 Albumin 2.5 g/dl (3.4-5.0) L 06/25/18 06:00 CARDIAC ENZYMES Creatine Kinase 298 IU/L (26-192) H 06/23/18 20:03 Troponin I < 0.02 ng/ml (0.00-0.05) 06/24/18 06:20 Current Medications Generic Name Dose Route Start Last Admin Trade Name Freq PRN Reason Stop Dose Admin Albuterol/Ipratropium 1 amp 06/24/18 13:59 06/25/18 01:54 Duoneb - NEB 1 amp Q6H PRN Administration SHORTNESS OF BREATH Albuterol/Ipratropium 1 amp 06/24/18 14:47 06/25/18 07:38 Duoneb - NEB 1 amp RQID YISEL Administration Amlodipine Besylate 2.5 mg 06/24/18 10:00 06/24/18 11:00 Norvasc - PO 2.5 mg DAILY YISEL Administration Aspirin 81 mg 06/24/18 10:00 06/24/18 11:00 Asa - PO 81 mg DAILY YISEL Administration Atorvastatin Calcium 40 mg 06/24/18 22:00 06/24/18 21:23 Lipitor - PO 40 mg HS YISEL Administration Cholecalciferol 2,000 unit 06/24/18 10:00 06/24/18 11:00 Vitamin D3 - PO 2,000 unit DAILY YISEL Administration Donepezil HCl 5 mg 06/24/18 10:00 06/24/18 10:59 Aricept - PO 5 mg DAILY YISEL Administration Enoxaparin Sodium 40 mg 06/24/18 10:00 06/24/18 11:00 Lovenox - SQ 40 mg DAILY YISEL Administration Guaifenesin 5 ml 06/24/18 04:00 06/24/18 21:59 Diabetic Tussin Dm - PO 5 ml Q6H PRN Administration COUGH Insulin Aspart 1 vial 06/24/18 07:00 06/25/18 06:21 Novolog Vial Sliding Scale - SQ 4 units ACHS YISEL Administration Protocol Insulin Detemir 10 units 06/25/18 10:00 Levemir Vial SQ BID@0700,2200 YISEL Losartan Potassium 100 mg 06/24/18 10:00 06/24/18 11:00 Cozaar - PO 100 mg DAILY YISEL Administration Melatonin 10 mg 06/24/18 22:00 06/24/18 21:23 Melatonin PO 10 mg HS PRN Administration INSOMNIA Metoprolol Succinate 50 mg 06/24/18 10:00 06/24/18 11:00 Toprol Xl - PO 50 mg DAILY YISEL Administration Mirtazapine 7.5 mg 06/24/18 22:00 06/24/18 21:22 Remeron - PO 7.5 mg HS YISEL Administration Prednisone 40 mg 06/24/18 10:30 06/24/18 11:01 Deltasone - PO 40 mg DAILY YISEL Administration Fluticasone/Salmeterol 1 puff 06/24/18 22:00 06/24/18 21:59 Advair 100mcg/50mcg - IH 1 puff BID YISEL Administration Microbiology 06/24/18 21:55 Nasopharyngeal Swab Influenza Types A,B Antigen - Final 06/24/18 21:55 Nasopharyngeal Swab - Final 06/23/18 19:54 Blood - Peripheral Venous Blood Culture - Preliminary NO GROWTH OBTAINED AFTER 24 HOURS, INCUBATION TO CONTINUE FOR 4 DAYS. 06/23/18 19:54 Blood - Peripheral Venous Blood Culture - Preliminary NO GROWTH OBTAINED AFTER 24 HOURS, INCUBATION TO CONTINUE FOR 4 DAYS. ASSESSMENT AND PLAN: Patient is a 78yo female with PMHx of Asthma, HTN, CAD, CABG, OA, HLP, DM who presented with SOB and was found to have severe HTN. # HTN emergency ,on Losartan, BB, increased the dose of Norvasc, will monitor. Pending ECHO. vitals q4h #Acute exacerbation of asthma added IV solumedrol 40mg iv q6h today will titrate in am. on Advair, neb. treatments, Pulmonary consult . # DM : added levemir 10 while patient is on steroids, SSI , check A1c DVT Px: Lovenox
[2018-06-25] MEDS: CHOLECALCIFEROL (VITAMIN D3) 1,000 UNIT TABLET (FP) PO SCH (09:21)
[2018-06-25] MEDS: LOSARTAN POTASSIUM 50 MG TABLET (FP) PO SCH (09:22)
[2018-06-25] MEDS: FLUTICASONE/SALMETEROL 100 MCG/50 MCG DISKUS IH SCH (09:22)
[2018-06-25] MEDS: ASPIRIN 81 MG CHEWABLE TABLETS PO SCH (09:22)
[2018-06-25] MEDS: DONEPEZIL HCL 5 MG TABLET (FP) PO SCH (09:22)
[2018-06-25] MEDS: predniSONE 20 MG TABLET (UD) PO SCH (09:22)
[2018-06-25] MEDS: ENOXAPARIN NA (PORCINE) 40 MG/0.4 ML DISP.SYRIN SQ SCH (09:22)
[2018-06-25] MEDS: guaiFENesin/D-M SUGAR-FREE/ACLHOL-FREE 118 ML BOTTLE PO PRN ×2 (09:23→17:06)
--- NOTE | 2018-06-25 15:42 | PN ---
Progress Note (short form) - Note Progress Note: PULMONARY CONSULATATION DICTATED 06/25/18 IMP ASTHMA EXACERBATION HYPERTENSIVE URGENCY ACUTE PULMONARY EDEMA LIKELY SECONDARY TO HTN DIASTOLIC HF S/P AVR LLL OPACITY R/O PNEUMONIA DM PLAN IV STEROIDS INHALED BRONCHODILATORS ABX TITRATE BP MEDS CARDIOLOGY EVALUATION F/U CHEST X-RAYS STRICT I+OS DR MA Problem List - Problems (1) S/P AVR (aortic valve replacement) Code(s): Z95.2 - PRESENCE OF PROSTHETIC HEART VALVE (2) Acute respiratory distress Code(s): R06.03 - ACUTE RESPIRATORY DISTRESS (3) CHF exacerbation Code(s): I50.9 - HEART FAILURE, UNSPECIFIED Qualifiers: Heart failure type: unspecified Qualified Code(s): I50.9 - Heart failure, unspecified (4) Hypertensive urgency Code(s): I16.0 - HYPERTENSIVE URGENCY (5) Pneumonia Code(s): J18.9 - PNEUMONIA, UNSPECIFIED ORGANISM (6) Diabetes Code(s): E11.9 - TYPE 2 DIABETES MELLITUS WITHOUT COMPLICATIONS
[2018-06-25] MEDS: methylPREDNISolone NA SUCC 40 MG/1 ML VIAL IVPUSH SCH ×2 (16:58→21:39)
--- NOTE | 2018-06-25 17:53 | CONS ---
DATE OF CONSULTATION: 06/25/2018 PULMONARY CONSULTATION REFERRING PHYSICIAN: Jenni Nicole M.D. HISTORY OF PRESENT ILLNESS: The patient is an 78-year-old female with a past medical history of chronic asthma since childhood, ASHD status post aortic valve replacement status post stents, hypertension, nonsmoker, admitted to [facility] with 1-week history of increasing shortness of breath, dyspnea on exertion, and fevers. Patient states she was doing well until approximately a week ago when she started developing a cough which is nonproductive. She also said she had a fever and shaking chills, although she did not take her temperature. She said the symptoms continued to worsen and started using inhaler at home without any improvement. She presented to the emergency room with the above. In the ER she was noted to have systolic blood pressure in the 200s. She also complained of some headache, frontal pressure. No nausea, vomiting, diaphoresis. In the ER she was treated with Norvasc, with some improvement in the blood pressure. She was also felt to have CHF secondary to hypertensive urgency. Patient denies any recent travel. She denies any history of occupational exposure to chemicals or fumes. She has never been intubated. She states that she is unsure what inhaler she uses at home. On admission, she was initially placed on prednisone without any significant improvement, for which she was placed today on Solu-Medrol. She denies any history of DVT or PE in the past. PAST MEDICAL HISTORY: Includes ASHD status post stents, status post aortic valve replacement, hypertension, diabetes, and chronic asthma. REVIEW OF SYSTEMS: Positive orthopnea. Positive dyspnea. Positive fever. Positive cough, nonproductive. No chest pain. No palpitations. No headaches. CURRENT MEDICATIONS: Include Solu-Medrol, Advair, Cozaar, Lovenox, Remeron, diabetic tussin, DuoNeb, Toprol, Lipitor, NovoLog, aspirin, Aricept, and vitamin D3. PHYSICAL EXAMINATION: GENERAL: The patient is an elderly female, awake, alert, comfortable, in no acute respiratory distress. VITAL SIGNS: She is afebrile. Blood pressure 157/68, respiratory rate 18, O2 saturation 98% on 2 L. HEENT: Normocephalic, atraumatic. NECK: Supple. HEART: Regular S1, S2. CHEST: Bilateral wheezes throughout. ABDOMEN: Soft, bowel sounds positive. EXTREMITIES: No cyanosis, edema. Chest x-ray reveals possible mild pulmonary vascular congestion, and possible left basilar opacification. WBC is 10.4, hemoglobin 9.1, hematocrit 27.7, platelet count 334,000. BUN 27, creatinine 1.1. Echo revealed normal LV function. There is mild concentric left ventricular hypertrophy. Right ventricle is normal in size and function, prosthetic aortic valve, no pericardial effusion, impaired but healthy relaxation. BNP was elevated 1381. IMPRESSION: 1. Respiratory distress, multiple factors, acute asthma exacerbation. 2. Pulmonary edema, possibly secondary to HTN 3. Hypertensive urgency 4. Rule out possible pneumonia. Patient gives a history of fever, chills, and cough. 5. Status post aortic valve replacement. 6. Diabetes. PLAN: IV steroids. Inhaled bronchodilators. Antibiotic therapy. Supplemental O2. Cardiology evaluation. Monitor blood pressures. Titrate blood pressure medications. Obtain followup chest x-rays. JAZMINE MA M.D. [id number] MTDD
[2018-06-25] MEDS ORDERED: DEXTROSE 5%-WATER - 50 ML IVPB ONE (19:01)
[2018-06-25] MEDS ORDERED: cefTRIAXone SODIUM 1 GM VIAL ONE (19:01)
[2018-06-25] MEDS: CEFTRIAXONE 1 GM in DEXTROSE 5%-WATER - 50 ML IVPB SCH (19:44)
[2018-06-25] MEDS: ATORVASTATIN CA 40 MG TABLET (FP) PO SCH (21:39)
[2018-06-25] MEDS: MIRTAZAPINE 15 MG TABLET (FP) PO SCH (21:39)
[2018-06-25] MEDS: MELATONIN 5 MG TABLETS PO PRN (21:39)
[2018-06-26] MEDS: methylPREDNISolone NA SUCC 40 MG/1 ML VIAL IVPUSH SCH ×3 (02:07→17:26)
[2018-06-26] MEDS: guaiFENesin/D-M SUGAR-FREE/ACLHOL-FREE 118 ML BOTTLE PO PRN (02:11)
[2018-06-26] MEDS ORDERED: PT OWN MED DRAWER 7, Y5N ONE ×2 (02:22→17:25)
[2018-06-26] MEDS: INSULIN SLIDING SCALE (NOVOLOG) 1 VIAL SQ SCH ×5 (06:04→22:27)
[2018-06-26 06:08] LABS: HEMATOCRIT 28.1 % (32.4-45.2); HEMOGLOBIN 9.3 GM/dL (10.7-15.3); MCH 21.2 pg (25.7-33.7); MCHC 33.1 g/dl (32.0-36.0); MEAN CELL VOLUME 64.2 fl (80-96); MEAN PLT VOLUME 8.2 fl (7.5-11.1); PLATELET COUNT 355 K/MM3 (134-434); RBC 4.37 M/mm3 (3.60-5.2); RDW 16.8 % (11.6-15.6)
[2018-06-26] MEDS ORDERED: INSULIN (LEVEMIR) 100 UNITS/ML UNITS SQ SCH (07:00)
[2018-06-26] MEDS: ALBUTEROL SO4 2.5/IPRATROPIUM 0.5 INH SOL 3 ML VIAL.NEB. NEB SCH ×4 (07:35→20:48)
[2018-06-26 08:30] LABS: ALBUMIN 2.6 g/dl (3.4-5.0); ALK PHOS 87 U/L (45-117); ANION GAP 9 MMOL/L (8-16); BILIRUBIN,TOTAL 0.2 mg/dL (0.2-1); BLOOD UREA NITROGEN 29 mg/dL (7-18); CHLORIDE 100 mmol/L (98-107); CO2 26 mmol/L (21-32); POTASSIUM 4.7 mmol/L (3.5-5.1); SGOT/AST 17 U/L (15-37); SGPT/ALT 34 U/L (13-61); SODIUM 135 mmol/L (136-145); TOT PROT 6.2 g/dl (6.4-8.2)
[2018-06-26 08:53] LABS: GLUCOSE,RANDOM 316 mg/dL (74-106)
--- NOTE | 2018-06-26 09:22 | PN ---
Teaching Attending Note Name of Resident: Patrick Maya ATTENDING PHYSICIAN STATEMENT I saw and evaluated the patient. I reviewed the resident's note and discussed the case with the resident. I agree with the resident's findings and plan as documented. SUBJECTIVE: Patient is feeling slightly better with no acute distress OBJECTIVE: Vital Signs Temperature 98.7 F 06/26/18 06:00 Pulse Rate 82 06/26/18 06:00 Respiratory Rate 19 06/26/18 06:00 Blood Pressure 153/76 06/26/18 06:00 O2 Sat by Pulse Oximetry (%) 98 06/25/18 21:00 GENERAL: The patient is awake, alert, oriented x3 , resting comfortably in bed , no acute distress. HEAD: Normal with no signs of trauma. EYES: PERRL, EOMI , sclera anicteric. ENT: Oropharynx clear without exudates, moist mucous membranes. NECK: Supple without lymphadenopathy or thyromegaly. LUNGS: decreased air entry BL. No accessory muscle use. HEART: Regular rate and rhythm, S1, S2 positive , no rub or gallop. ABDOMEN: Soft, obese. Nontender to palpation. Normoactive bowel sounds, no guarding, no rebound. EXTREMITIES: 2+ pulses b/l. Warm. NEUROLOGICAL: Cranial nerves II through XII grossly intact. Normal speech. PSYCH: Mood and affect appropriate upon my encounter today. SKIN: Warm, dry, normal turgor, no rashes or lesions noted CBCD WBC 10.0 K/mm3 (4.0-10.0) 06/26/18 05:30 RBC 4.37 M/mm3 (3.60-5.2) 06/26/18 05:30 Hgb 9.3 GM/dL (10.7-15.3) L 06/26/18 05:30 Hct 28.1 % (32.4-45.2) L 06/26/18 05:30 MCV 64.2 fl (80-96) L 06/26/18 05:30 MCHC 33.1 g/dl (32.0-36.0) 06/26/18 05:30 RDW 16.8 % (11.6-15.6) H 06/26/18 05:30 Plt Count 355 K/MM3 (134-434) 06/26/18 05:30 MPV 8.2 fl (7.5-11.1) 06/26/18 05:30 CMP Sodium 135 mmol/L (136-145) L 06/26/18 05:30 Potassium 4.7 mmol/L (3.5-5.1) 06/26/18 05:30 Chloride 100 mmol/L (98-107) 06/26/18 05:30 Carbon Dioxide 26 mmol/L (21-32) 06/26/18 05:30 Anion Gap 9 MMOL/L (8-16) 06/26/18 05:30 BUN 29 mg/dL (7-18) H 06/26/18 05:30 Creatinine 1.0 mg/dL (0.55-1.3) 06/26/18 05:30 Creat Clearance w eGFR 53.35 (>60) 06/26/18 05:30 Random Glucose 316 mg/dL (74-106) H* 06/26/18 05:30 Calcium 8.0 mg/dL (8.5-10.1) L 06/26/18 05:30 Total Bilirubin 0.2 mg/dL (0.2-1) 06/26/18 05:30 AST 17 U/L (15-37) 06/26/18 05:30 ALT 34 U/L (13-61) 06/26/18 05:30 Alkaline Phosphatase 87 U/L (45-117) 06/26/18 05:30 Total Protein 6.2 g/dl (6.4-8.2) L 06/26/18 05:30 Albumin 2.6 g/dl (3.4-5.0) L 06/26/18 05:30 CARDIAC ENZYMES Creatine Kinase 298 IU/L (26-192) H 06/23/18 20:03 Troponin I < 0.02 ng/ml (0.00-0.05) 06/24/18 06:20 Current Medications Generic Name Dose Route Start Last Admin Trade Name Freq PRN Reason Stop Dose Admin Albuterol/Ipratropium 1 amp 06/24/18 13:59 06/25/18 01:54 Duoneb - NEB 1 amp Q6H PRN Administration SHORTNESS OF BREATH Albuterol/Ipratropium 1 amp 06/24/18 14:47 06/26/18 07:35 Duoneb - NEB 1 amp RQID YISEL Administration Amlodipine Besylate 5 mg 06/26/18 10:00 Norvasc - PO DAILY YISEL Aspirin 81 mg 06/24/18 10:00 06/25/18 09:22 Asa - PO 81 mg DAILY YISEL Administration Atorvastatin Calcium 40 mg 06/24/18 22:00 06/25/18 21:39 Lipitor - PO 40 mg HS YISEL Administration Cholecalciferol 2,000 unit 06/24/18 10:00 06/25/18 09:21 Vitamin D3 - PO 2,000 unit DAILY YISEL Administration Donepezil HCl 5 mg 06/24/18 10:00 06/25/18 09:22 Aricept - PO 5 mg DAILY YISEL Administration Enoxaparin Sodium 40 mg 06/24/18 10:00 06/25/18 09:22 Lovenox - SQ 40 mg DAILY YISEL Administration Guaifenesin 5 ml 06/24/18 04:00 06/26/18 02:11 Diabetic Tussin Dm - PO 5 ml Q6H PRN Administration COUGH Ceftriaxone Sodium 1 gm/ 50 mls @ 100 mls/hr 06/25/18 17:30 06/25/18 19:44 Dextrose IVPB 100 mls/hr DAILY YISEL Administration Protocol Insulin Aspart 1 vial 06/25/18 14:30 06/26/18 06:04 Novolog Vial Sliding Scale - SQ 10 units Q4HWA YISEL Administration Protocol Insulin Detemir 15 units 06/26/18 07:00 06/26/18 06:04 Levemir Vial SQ 15 units DAILY@0700 YISEL Administration Losartan Potassium 100 mg 06/24/18 10:00 06/25/18 09:22 Cozaar - PO 100 mg DAILY YISEL Administration Melatonin 10 mg 06/24/18 22:00 06/25/18 21:39 Melatonin PO 10 mg HS PRN Administration INSOMNIA Methylprednisolone Sodium Succinate 40 mg 06/25/18 15:00 06/26/18 02:07 Solu-Medrol - IVPUSH 40 mg Q6H-IV YISEL Administration Metoprolol Succinate 50 mg 06/24/18 10:00 06/25/18 09:22 Toprol Xl - PO 50 mg DAILY YISEL Administration Mirtazapine 7.5 mg 06/24/18 22:00 06/25/18 21:39 Remeron - PO 7.5 mg HS YISEL Administration Home Medications Medication Instructions Recorded Amlodipine Besylate 2.5 mg PO DAILY 04/19/18 Aspirin [ASA -] 81 mg PO DAILY 04/19/18 Atorvastatin Ca [Lipitor] 40 mg PO DAILY 04/19/18 Donepezil HCl [Aricept] 5 mg PO DAILY 04/19/18 Cholecalciferol (Vitamin D3) 2,000 unit PO DAILY 06/24/18 [Vitamin D3] Losartan Potassium 100 mg PO DAILY 06/24/18 Melatonin 10 mg PO PRN 06/24/18 Metoprolol Succinate 50 mg PO DAILY 06/24/18 Mirtazapine 7.5 mg PO DAILY 06/24/18 Clawson-3/Dha/Epa/Fish Oil [Fish Oil 06/24/18 Clawson-3 EC 1,200 mg] Sitagliptin Phos/Metformin HCl 50 mg PO BID 06/24/18 [Janumet Xr 50-500 mg Tablet] ASSESSMENT AND PLAN: Patient is a 78yo female with PMHx of Asthma, HTN, CAD, CABG, OA, HLP, DM who presented with SOB and was found to have severe HTN. # HTN emergency ,on Losartan, BB, increased the dose of Norvasc, will monitor. ECHO reviewed, vitals q4h #Acute exacerbation of asthma added IV solumedrol 40mg iv q6h today will titrate in am. on Advair, neb. treatments, Pulmonary consult . # DM : will increase levemir 15 while patient is on steroids, SSI , check A1c DVT Px: Lovenox
[2018-06-26] MEDS ORDERED: cefTRIAXone SODIUM 1 GM VIAL ONE (10:14)
[2018-06-26] MEDS ORDERED: DEXTROSE 5%-WATER - 50 ML IVPB ONE (10:14)
[2018-06-26] MEDS ORDERED: INSULIN (NOVOLOG) ASPART 100 UNITS/ML 10ML VIAL ONE (10:17)
[2018-06-26] MEDS: CEFTRIAXONE 1 GM in DEXTROSE 5%-WATER - 50 ML IVPB SCH (10:28)
[2018-06-26] MEDS ORDERED: FUROSEMIDE 40 MG/4 ML INJECTABLE VIAL IVPUSH ONE (10:30)
[2018-06-26] MEDS: ENOXAPARIN NA (PORCINE) 40 MG/0.4 ML DISP.SYRIN SQ SCH (10:31)
[2018-06-26] MEDS: ASPIRIN 81 MG CHEWABLE TABLETS PO SCH (10:35)
[2018-06-26] MEDS: LOSARTAN POTASSIUM 50 MG TABLET (FP) PO SCH (10:35)
[2018-06-26] MEDS: DONEPEZIL HCL 5 MG TABLET (FP) PO SCH (10:36)
[2018-06-26] MEDS: amLODIPine BESYLATE 5 MG TABLET (FP) PO SCH (10:36)
[2018-06-26] MEDS: CHOLECALCIFEROL (VITAMIN D3) 1,000 UNIT TABLET (FP) PO SCH (10:36)
[2018-06-26] MEDS: POLYETHYLENE GLYCOL 3350 119 GM BTL PO SCH ×2 (11:00→22:27)
--- NOTE | 2018-06-26 13:21 | PN ---
Progress Note (short form) - Note Progress Note: PULMONARY Breathing better today. +nonproductive cough and less wheezing. no fevers. Vital Signs Period Temp Pulse Resp BP Sys/Escamilla Pulse Ox Last 24 Hr 98.0 F-98.8 F 70-83 18-20 143-157/64-76 98-98 Gen: NAD at rest Heart: RRR Lung: distant breath sounds Abd: soft, nontender Ext: no edema CBC, BMP 06/26/18 05:30 Active Medications Albuterol/Ipratropium (Duoneb -) 1 amp NEB Q6H PRN PRN Reason: SHORTNESS OF BREATH Last Admin: 06/25/18 01:54 Dose: 1 amp Albuterol/Ipratropium (Duoneb -) 1 amp NEB RQID [facility] Last Admin: 06/26/18 11:10 Dose: 1 amp Amlodipine Besylate (Norvasc -) 5 mg PO DAILY [facility] Last Admin: 06/26/18 10:36 Dose: 5 mg Aspirin (Asa -) 81 mg PO DAILY [facility] Last Admin: 06/26/18 10:35 Dose: 81 mg Atorvastatin Calcium (Lipitor -) 40 mg PO HS [facility] Last Admin: 06/25/18 21:39 Dose: 40 mg Cholecalciferol (Vitamin D3 -) 2,000 unit PO DAILY [facility] Last Admin: 06/26/18 10:36 Dose: 2,000 unit Donepezil HCl (Aricept -) 5 mg PO DAILY [facility] Last Admin: 06/26/18 10:36 Dose: 5 mg Enoxaparin Sodium (Lovenox -) 40 mg SQ DAILY [facility] Last Admin: 06/26/18 10:31 Dose: 40 mg Guaifenesin (Diabetic Tussin Dm -) 5 ml PO Q6H PRN PRN Reason: COUGH Last Admin: 06/26/18 02:11 Dose: 5 ml Ceftriaxone Sodium 1 gm/ (Dextrose) 50 mls @ 100 mls/hr IVPB DAILY [facility]; Protocol Last Admin: 06/26/18 10:28 Dose: 100 mls/hr Insulin Aspart (Novolog Vial Sliding Scale -) 1 vial SQ Q4HWA [facility]; Protocol Last Admin: 06/26/18 10:37 Dose: 12 units Insulin Detemir (Levemir Vial) 15 units SQ DAILY@0700 YISEL Last Admin: 06/26/18 06:04 Dose: 15 units Losartan Potassium (Cozaar -) 100 mg PO DAILY [facility] Last Admin: 06/26/18 10:35 Dose: 100 mg Melatonin (Melatonin) 10 mg PO HS PRN PRN Reason: INSOMNIA Last Admin: 06/25/18 21:39 Dose: 10 mg Methylprednisolone Sodium Succinate (Solu-Medrol -) 40 mg IVPUSH Q6H-IV [facility] Last Admin: 06/26/18 09:32 Dose: 40 mg Metoprolol Succinate (Toprol Xl -) 50 mg PO DAILY [facility] Last Admin: 06/26/18 10:35 Dose: 50 mg Mirtazapine (Remeron -) 7.5 mg PO HS [facility] Last Admin: 06/25/18 21:39 Dose: 7.5 mg Polyethylene Glycol (Miralax (For Daily Use) -) 17 gm PO BID [facility] Last Admin: 06/26/18 11:00 Dose: 17 gm A/P Acute Asthma Exacerbation Pneumonia Hypertensive Urgency resolved LV Diastolic Dysfunction h/o AVR DM - continue antibiotics - will decrease medrol to q8h - inhaled bronchodilators - O2 to keep Spo2 >90% - glucose control while on systemic steroids - DVT prophylaxis
--- NOTE | 2018-06-26 15:45 | PN ---
Physical Exam: SUBJECTIVE: Patient seen and examined at bedside this morning. Still complains of cough that wakes her up overnight, now productive with white- colored sputum. Temporarily palliated with Guaifenesin. Admits improvement diffuse chest pain, exacerbated with cough. Denies fevers, chills, palpitations, abdominal pain, nausea, vomiting, diarrhea, constipation. OBJECTIVE: Vital Signs Period Temp Pulse Resp BP Sys/Escamilla Pulse Ox Last 24 Hr 98.0 F-98.8 F 80-83 18-20 143-158/64-76 98-98 GENERAL: The patient is awake, alert, and fully oriented, resting comfortably in bed, no acute distress. HEAD: Normal with no signs of trauma. EYES: PERRL, extraocular movements intact, sclera anicteric, conjunctiva noninjected b/l. ENT: Oropharynx clear without exudates, moist mucous membranes. NECK: Supple without lymphadenopathy or thyromegaly. LUNGS: Poor inspiratory effort, and air entery b/l. Wheezing in b/l lower lobes auscultated. No accessory muscle use. HEART: Regular rate and rhythm, S1, S2 without murmur, rub or gallop. ABDOMEN: Soft, obese. Nontender to palpation. Normoactive bowel sounds, no guarding, no rebound, no hepatosplenomegaly. EXTREMITIES: 2+ radial and dorsalis pedis pulses b/l. Warm. NEUROLOGICAL: Cranial nerves II through XII grossly intact. Normal speech. Strength 5/5 b/l upper and lower extremities. No gross focal deficits. PSYCH: Mood and affect appropriate upon my encounter today. SKIN: Warm, dry, normal turgor, no rashes or lesions noted Laboratory Results - last 24 hr 06/25/18 06/25/18 06/25/18 16:29 21:38 22:52 WBC RBC Hgb Hct MCV MCH MCHC RDW Plt Count MPV Sodium Potassium Chloride Carbon Dioxide Anion Gap BUN Creatinine Creat Clearance w eGFR POC Glucometer 263 406 377 Random Glucose Calcium Total Bilirubin AST ALT Alkaline Phosphatase Total Protein Albumin 06/26/18 06/26/18 06/26/18 05:30 05:30 06:03 WBC 10.0 RBC 4.37 Hgb 9.3 L Hct 28.1 L MCV 64.2 L MCH 21.2 L MCHC 33.1 RDW 16.8 H Plt Count 355 MPV 8.2 Sodium 135 L Potassium 4.7 Chloride 100 Carbon Dioxide 26 Anion Gap 9 BUN 29 H Creatinine 1.0 Creat Clearance w eGFR 53.35 POC Glucometer 364 Random Glucose 316 H* Calcium 8.0 L Total Bilirubin 0.2 AST 17 ALT 34 Alkaline Phosphatase 87 Total Protein 6.2 L Albumin 2.6 L 06/26/18 06/26/18 10:30 12:05 WBC RBC Hgb Hct MCV MCH MCHC RDW Plt Count MPV Sodium Potassium Chloride Carbon Dioxide Anion Gap BUN Creatinine Creat Clearance w eGFR POC Glucometer 460 Random Glucose 440 H* Calcium Total Bilirubin AST ALT Alkaline Phosphatase Total Protein Albumin Active Medications Generic Name Dose Route Start Last Admin Trade Name Freq PRN Reason Stop Dose Admin Albuterol/Ipratropium 1 amp 06/24/18 13:59 06/25/18 01:54 Duoneb - NEB 1 amp Q6H PRN Administration SHORTNESS OF BREATH Albuterol/Ipratropium 1 amp 06/24/18 14:47 06/26/18 11:10 Duoneb - NEB 1 amp RQID YISEL Administration Amlodipine Besylate 5 mg 06/26/18 10:00 06/26/18 10:36 Norvasc - PO 5 mg DAILY YISEL Administration Aspirin 81 mg 06/24/18 10:00 06/26/18 10:35 Asa - PO 81 mg DAILY YISEL Administration Atorvastatin Calcium 40 mg 06/24/18 22:00 06/25/18 21:39 Lipitor - PO 40 mg HS YISEL Administration Cholecalciferol 2,000 unit 06/24/18 10:00 06/26/18 10:36 Vitamin D3 - PO 2,000 unit DAILY YISEL Administration Donepezil HCl 5 mg 06/24/18 10:00 06/26/18 10:36 Aricept - PO 5 mg DAILY YISEL Administration Enoxaparin Sodium 40 mg 06/24/18 10:00 06/26/18 10:31 Lovenox - SQ 40 mg DAILY YISEL Administration Guaifenesin/Codeine Phosphate 5 ml 06/26/18 13:46 Robitussin Ac - PO BID PRN COUGH Ceftriaxone Sodium 1 gm/ 50 mls @ 100 mls/hr 06/25/18 17:30 06/26/18 10:28 Dextrose IVPB 100 mls/hr DAILY YISEL Administration Protocol Insulin Aspart 1 vial 06/25/18 14:30 06/26/18 14:21 Novolog Vial Sliding Scale - SQ 12 units Q4HWA YISEL Administration Protocol Insulin Detemir 15 units 06/26/18 16:30 Levemir Vial SQ BIDI YSIEL Losartan Potassium 100 mg 06/24/18 10:00 06/26/18 10:35 Cozaar - PO 100 mg DAILY YISEL Administration Melatonin 10 mg 06/24/18 22:00 06/25/18 21:39 Melatonin PO 10 mg HS PRN Administration INSOMNIA Methylprednisolone Sodium Succinate 40 mg 06/26/18 18:00 Solu-Medrol - IVPUSH Q8H-IV YISEL Metoprolol Succinate 50 mg 06/24/18 10:00 06/26/18 10:35 Toprol Xl - PO 50 mg DAILY YISEL Administration Mirtazapine 7.5 mg 06/24/18 22:00 06/25/18 21:39 Remeron - PO 7.5 mg HS YISEL Administration Polyethylene Glycol 17 gm 06/26/18 11:00 06/26/18 11:00 Miralax (For Daily Use) - PO 17 gm BID YISEL Administration IMAGING: EKG: Normal sinus rhythm at 73 beats per minute. Left [place] deviation, LVH noted. QTc 486. Chest Xray (admission): Interstitial opacities, due to poor inspiratory effort vs. pulmonary venous congestion. CT head: No acute infarct, intracranial pathology, or hemorrhage. Chest Xray (06/25): Left basilar opacification, blunting of left costophrenic angle ?pleural effusion. ASSESSMENT/PLAN: Patient is an 78 year old female with history of asthma, hypertension, hyperlipidemia, diabetes, coronary artery disease s/p 1 stent and aortic valve replacement presents with complaint of shortness of breath, and nonproductive cough for the past week. Severe, Persistent Asthma exacerbation -Improving. Patient admits improvement with breathing, and improved inspiratory effort. -Duonebs Q6H PRN -Solu-medrol 40mg IV Q8H -Guaifenesin AC 5mL PO BID PRN for cough Possible pneumonia -Pulmonology consult (Dr. Potter) appreciated: Will start patient on Ceftriaxone 1gm IV daily (day 2) -CXR today shows improving lower lobe consolidations (upon my read). Will follow official reading -Urine for strep pneumonia, legionella negative. CHF -Lasix 40mg given in ED. 20mg IV today -Continue Metoprolol XL 50mg PO daily -ECHO shows: LV normal in size, minld concentric LVH, systolic function normal. Trace MR. Trace TR. 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 DM -ISS Q4H -BGM Q4H -Levemir 15mg SQ BID HTN -Hypertensive emergency in ED with BP 242/78 and pulmonary edema. -BP at 158/72 today -Amlodipine home dose 2.5mg increased to 5mg. Additional 5mg dose this evening. -Continue Metoprolol XL 50mg PO daily -Continue Losartan 100mg PO daily -Will follow BP closely HLD -Continue Atorvastatin 40mg PO HS CAD -Continue Aspirin 81mg PO daily Alzheimer dementia -Donepezil 5mg PO daily Anxiety -Mirtazapine 7.5mg PO HS FEN -No IV fluids. Patient tolerates oral intake. Encourage judicious oral hydration. -Will follow CMP -Diabetic, salt controlled diet Prophylaxis -Lovenox 40mg SQ daily Disposition -Continue care in medical-surgical floor Visit type - Emergency Visit Emergency Visit: Yes ED Registration Date: 06/24/18 Care time: The patient presented to the Emergency Department on the above date and was hospitalized for further evaluation of their emergent condition. - New Patient This patient is new to me today: No - Critical Care Critical Care patient: No - Discharge Referral Referred to [facility] Med P.C.: No
[2018-06-26] MEDS: INSULIN (LEVEMIR) 100 UNITS/ML UNITS SQ SCH (17:26)
[2018-06-26] MEDS ORDERED: amLODIPine BESYLATE 5 MG TABLET (FP) PO ONE (17:30)
[2018-06-26] MEDS: ATORVASTATIN CA 40 MG TABLET (FP) PO SCH (22:21)
[2018-06-26] MEDS: MIRTAZAPINE 15 MG TABLET (FP) PO SCH (22:22)
[2018-06-26] MEDS: MELATONIN 5 MG TABLETS PO PRN (22:24)
[2018-06-26] MEDS: guaiFENesin/CODEINE 5 ML UNIT-DOSE CUPS PO PRN (22:24)
[2018-06-27] MEDS: methylPREDNISolone NA SUCC 40 MG/1 ML VIAL IVPUSH SCH ×3 (01:59→17:53)
[2018-06-27] MEDS: INSULIN (LEVEMIR) 100 UNITS/ML UNITS SQ SCH ×2 (06:21→21:36)
[2018-06-27] MEDS: INSULIN SLIDING SCALE (NOVOLOG) 1 VIAL SQ SCH ×5 (06:23→21:35)
[2018-06-27 06:51] LABS: HEMATOCRIT 32.8 % (32.4-45.2); HEMOGLOBIN 10.5 GM/dL (10.7-15.3); MCH 20.9 pg (25.7-33.7); MCHC 32.1 g/dl (32.0-36.0); MEAN PLT VOLUME 8.4 fl (7.5-11.1); PLATELET COUNT 412 K/MM3 (134-434); RBC 5.05 M/mm3 (3.60-5.2); RDW 16.5 % (11.6-15.6); WHITE BLOOD COUNT 14.1 K/mm3 (4.0-10.0)
[2018-06-27 07:53] LABS: ALBUMIN 2.9 g/dl (3.4-5.0); ALK PHOS 89 U/L (45-117); ANION GAP 10 MMOL/L (8-16); BILIRUBIN,TOTAL 0.3 mg/dL (0.2-1); BLOOD UREA NITROGEN 34 mg/dL (7-18); CALCIUM 8.8 mg/dL (8.5-10.1); CHLORIDE 101 mmol/L (98-107); CO2 28 mmol/L (21-32); GLUCOSE,RANDOM 217 mg/dL (74-106); MAGNESIUM 2.7 mg/dL (1.8-2.4); PHOSPHOROUS 4.1 mg/dL (2.5-4.9); SGOT/AST 13 U/L (15-37); SGPT/ALT 37 U/L (13-61); SODIUM 139 mmol/L (136-145); TOT PROT 6.6 g/dl (6.4-8.2)
[2018-06-27] MEDS: ALBUTEROL SO4 2.5/IPRATROPIUM 0.5 INH SOL 3 ML VIAL.NEB. NEB SCH ×4 (08:24→20:54)
[2018-06-27] MEDS ORDERED: PT OWN MED DRAWER 7, Y5N ONE (09:24)
[2018-06-27] MEDS ORDERED: cefTRIAXone SODIUM 1 GM VIAL ONE (09:25)
[2018-06-27] MEDS ORDERED: DEXTROSE 5%-WATER - 50 ML IVPB ONE (09:25)
[2018-06-27] MEDS ORDERED: INSULIN (LEVEMIR) 100 UNITS/ML UNITS SQ ONE (09:27)
[2018-06-27] MEDS: ENOXAPARIN NA (PORCINE) 40 MG/0.4 ML DISP.SYRIN SQ SCH (09:28)
[2018-06-27] MEDS: CEFTRIAXONE 1 GM in DEXTROSE 5%-WATER - 50 ML IVPB SCH (09:28)
[2018-06-27] MEDS: guaiFENesin/CODEINE 5 ML UNIT-DOSE CUPS PO PRN (09:28)
[2018-06-27] MEDS: CHOLECALCIFEROL (VITAMIN D3) 1,000 UNIT TABLET (FP) PO SCH (09:29)
[2018-06-27] MEDS: DONEPEZIL HCL 5 MG TABLET (FP) PO SCH (09:29)
[2018-06-27] MEDS: ASPIRIN 81 MG CHEWABLE TABLETS PO SCH (09:29)
[2018-06-27] MEDS: LOSARTAN POTASSIUM 50 MG TABLET (FP) PO SCH (09:29)
[2018-06-27] MEDS: amLODIPine BESYLATE 5 MG TABLET (FP) PO SCH ×2 (09:29→21:35)
[2018-06-27] MEDS: POLYETHYLENE GLYCOL 3350 119 GM BTL PO SCH ×2 (09:30→21:37)
--- NOTE | 2018-06-27 11:15 | EKG ---
Test Reason : Blood Pressure : / mmHG Vent. Rate : 078 BPM Atrial Rate : 078 BPM P-R Int : 178 ms QRS Dur : 088 ms QT Int : 396 ms P-R-T Axes : 066 -32 043 degrees QTc Int : 451 ms NORMAL SINUS RHYTHM LEFT AXIS DEVIATION LEFT VENTRICULAR HYPERTROPHY WITH REPOLARIZATION ABNORMALITY ABNORMAL ECG WHEN COMPARED WITH ECG OF 23-JUN-2018 21:40, CRITERIA FOR SEPTAL INFARCT ARE NO LONGER PRESENT T WAVE INVERSION MORE EVIDENT IN LATERAL LEADS Confirmed by CAROLINE HICKEY MD ([id number]) on 06/27/2018 11:15:42 AM Referred By: JOSETTE FABIAN Confirmed By:CAROLINE HICKEY MD
[2018-06-27] MEDS ORDERED: guaiFENesin/CODEINE 5 ML UNIT-DOSE CUPS PO PRN (11:21)
--- NOTE | 2018-06-27 12:30 | PN ---
Progress Note, Physician History of Present Illness: pulmonary alert,feeling better,sob improving,-cp,mon cough - Current Medication List Current Medications: Active Medications Albuterol/Ipratropium (Duoneb -) 1 amp NEB Q6H PRN PRN Reason: SHORTNESS OF BREATH Last Admin: 06/25/18 01:54 Dose: 1 amp Albuterol/Ipratropium (Duoneb -) 1 amp NEB RQID YISEL Last Admin: 06/27/18 08:24 Dose: 1 amp Amlodipine Besylate (Norvasc -) 5 mg PO DAILY [facility] Last Admin: 06/27/18 09:29 Dose: 5 mg Aspirin (Asa -) 81 mg PO DAILY [facility] Last Admin: 06/27/18 09:29 Dose: 81 mg Atorvastatin Calcium (Lipitor -) 40 mg PO HS [facility] Last Admin: 06/26/18 22:21 Dose: 40 mg Cholecalciferol (Vitamin D3 -) 2,000 unit PO DAILY [facility] Last Admin: 06/27/18 09:29 Dose: 2,000 unit Donepezil HCl (Aricept -) 5 mg PO DAILY [facility] Last Admin: 06/27/18 09:29 Dose: 5 mg Enoxaparin Sodium (Lovenox -) 40 mg SQ DAILY [facility] Last Admin: 06/27/18 09:28 Dose: 40 mg Guaifenesin/Codeine Phosphate (Robitussin Ac -) 5 ml PO TID PRN PRN Reason: COUGH Ceftriaxone Sodium 1 gm/ (Dextrose) 50 mls @ 100 mls/hr IVPB DAILY [facility]; Protocol Last Admin: 06/27/18 09:28 Dose: 100 mls/hr Insulin Aspart (Novolog Vial Sliding Scale -) 1 vial SQ Q4HWA [facility]; Protocol Last Admin: 06/27/18 09:34 Dose: 8 units Insulin Detemir (Levemir Vial) 15 units SQ HS [facility] Insulin Detemir (Levemir Vial) 20 units SQ AM [facility] Losartan Potassium (Cozaar -) 100 mg PO DAILY [facility] Last Admin: 06/27/18 09:29 Dose: 100 mg Melatonin (Melatonin) 10 mg PO HS PRN PRN Reason: INSOMNIA Last Admin: 06/26/18 22:24 Dose: 10 mg Methylprednisolone Sodium Succinate (Solu-Medrol -) 40 mg IVPUSH Q8H-IV YISEL Last Admin: 06/27/18 09:28 Dose: 40 mg Metoprolol Succinate (Toprol Xl -) 50 mg PO DAILY [facility] Last Admin: 06/27/18 09:29 Dose: 50 mg Mirtazapine (Remeron -) 7.5 mg PO HS [facility] Last Admin: 06/26/18 22:22 Dose: 7.5 mg Polyethylene Glycol (Miralax (For Daily Use) -) 17 gm PO BID [facility] Last Admin: 06/27/18 09:30 Dose: 17 gm - Objective Vital Signs: Vital Signs Temperature 98.3 F 06/27/18 06:00 Pulse Rate 73 06/27/18 06:00 Respiratory Rate 18 06/27/18 09:00 Blood Pressure 147/61 06/27/18 06:00 O2 Sat by Pulse Oximetry (%) 97 06/27/18 09:00 Constitutional: Yes: Well Nourished, Calm Eyes: Yes: WNL HENT: Yes: WNL Neck: Yes: WNL Cardiovascular: Yes: Regular Rate and Rhythm, S1, S2 Respiratory: Yes: Wheezes Gastrointestinal: Yes: Normal Bowel Sounds, Soft Extremities: Yes: WNL Edema: No Labs: CBC, BMP 06/27/18 06:00 06/27/18 06:00 Problem List - Problems (1) S/P AVR (aortic valve replacement) Code(s): Z95.2 - PRESENCE OF PROSTHETIC HEART VALVE (2) Acute respiratory distress Code(s): R06.03 - ACUTE RESPIRATORY DISTRESS (3) CHF exacerbation Code(s): I50.9 - HEART FAILURE, UNSPECIFIED Qualifiers: Heart failure type: unspecified Qualified Code(s): I50.9 - Heart failure, unspecified (4) Hypertensive urgency Code(s): I16.0 - HYPERTENSIVE URGENCY (5) Pneumonia Code(s): J18.9 - PNEUMONIA, UNSPECIFIED ORGANISM (6) Diabetes Code(s): E11.9 - TYPE 2 DIABETES MELLITUS WITHOUT COMPLICATIONS Assessment/Plan IMP ASTHMA EXACERBATION improving HYPERTENSIVE URGENCY resolved ACUTE PULMONARY EDEMA LIKELY SECONDARY TO HTN DIASTOLIC HF S/P AVR LLL OPACITY R/O PNEUMONIA DM PLAN STEROID taper INHALED BRONCHODILATORS ABX TITRATE BP MEDS F/U CHEST X-RAYS STRICT I+OS DR MA Problem List - Problems (1) S/P AVR (aortic valve replacement) Code(s): Z95.2 - PRESENCE OF PROSTHETIC HEART VALVE (2) Acute respiratory distress Code(s): R06.03 - ACUTE RESPIRATORY DISTRESS (3) CHF exacerbation Code(s): I50.9 - HEART FAILURE, UNSPECIFIED Qualifiers: Heart failure type: unspecified Qualified Code(s): I50.9 - Heart failure, unspecified (4) Hypertensive urgency Code(s): I16.0 - HYPERTENSIVE URGENCY (5) Pneumonia Code(s): J18.9 - PNEUMONIA, UNSPECIFIED ORGANISM (6) Diabetes Code(s): E11.9 - TYPE 2 DIABETES MELLITUS WITHOUT COMPLICATIONS
--- NOTE | 2018-06-27 12:49 | PN ---
Physical Exam: SUBJECTIVE: Patient seen and examined at bedside this morning while she was receiving nebulizer treatment. Admits cough productive with white-colored sputum. Temporarily palliated with Guaifenesin AC. Admits improving diffuse chest pain, exacerbated with cough. Denies fevers, chills, palpitations, abdominal pain, nausea, vomiting, diarrhea, constipation. OBJECTIVE: Vital Signs Period Temp Pulse Resp BP Sys/Escamilla Pulse Ox Last 24 Hr 97.7 F-98.4 F 71-80 18-22 139-158/61-77 97-97 GENERAL: The patient is awake, alert, and fully oriented, resting comfortably in bed, no acute distress. HEAD: Normal with no signs of trauma. EYES: PERRLA, extraocular movements intact, sclera anicteric, conjunctiva noninjected b/l. ENT: Oropharynx clear without exudates, moist mucous membranes. NECK: Supple without lymphadenopathy or thyromegaly. LUNGS: Improving inspiratory effort, and air entery b/l. Faint wheezing and crackles auscultated in b/l lower lobes. No accessory muscle use. HEART: Regular rate and rhythm, S1, S2 without murmur, rub or gallop. ABDOMEN: Soft, obese. Nontender to palpation. Normoactive bowel sounds, no guarding, no rebound, no hepatosplenomegaly. EXTREMITIES: 2+ radial and dorsalis pedis pulses b/l. Warm. NEUROLOGICAL: Cranial nerves II through XII grossly intact. Normal speech. Strength 5/5 b/l upper and lower extremities. No gross focal deficits. PSYCH: Mood and affect appropriate upon my encounter today. SKIN: Warm, dry, normal turgor, no rashes or lesions noted Laboratory Results - last 24 hr 06/26/18 06/26/18 06/26/18 12:05 14:19 17:21 WBC RBC Hgb Hct MCV MCH MCHC RDW Plt Count MPV Sodium Potassium Chloride Carbon Dioxide Anion Gap BUN Creatinine Creat Clearance w eGFR POC Glucometer 422 340 Random Glucose 440 H* Calcium Phosphorus Magnesium Total Bilirubin AST ALT Alkaline Phosphatase Total Protein Albumin 06/26/18 06/27/18 06/27/18 21:17 05:45 06:00 WBC 14.1 H RBC 5.05 Hgb 10.5 L Hct 32.8 D MCV 65.0 L MCH 20.9 L MCHC 32.1 RDW 16.5 H Plt Count 412 MPV 8.4 Sodium Potassium Chloride Carbon Dioxide Anion Gap BUN Creatinine Creat Clearance w eGFR POC Glucometer 307 239 Random Glucose Calcium Phosphorus Magnesium Total Bilirubin AST ALT Alkaline Phosphatase Total Protein Albumin 06/27/18 06/27/18 06:00 09:33 WBC RBC Hgb Hct MCV MCH MCHC RDW Plt Count MPV Sodium 139 Potassium 5.0 Chloride 101 Carbon Dioxide 28 Anion Gap 10 BUN 34 H Creatinine 1.0 Creat Clearance w eGFR 53.35 POC Glucometer 333 Random Glucose 217 H Calcium 8.8 Phosphorus 4.1 Magnesium 2.7 H Total Bilirubin 0.3 AST 13 L ALT 37 Alkaline Phosphatase 89 Total Protein 6.6 Albumin 2.9 L Active Medications Generic Name Dose Route Start Last Admin Trade Name Freq PRN Reason Stop Dose Admin Albuterol/Ipratropium 1 amp 06/24/18 13:59 06/25/18 01:54 Duoneb - NEB 1 amp Q6H PRN Administration SHORTNESS OF BREATH Albuterol/Ipratropium 1 amp 06/24/18 14:47 06/27/18 12:34 Duoneb - NEB 1 amp RQID YISEL Administration Amlodipine Besylate 5 mg 06/26/18 10:00 06/27/18 09:29 Norvasc - PO 5 mg DAILY YISEL Administration Aspirin 81 mg 06/24/18 10:00 06/27/18 09:29 Asa - PO 81 mg DAILY YISEL Administration Atorvastatin Calcium 40 mg 06/24/18 22:00 06/26/18 22:21 Lipitor - PO 40 mg HS YISEL Administration Cholecalciferol 2,000 unit 06/24/18 10:00 06/27/18 09:29 Vitamin D3 - PO 2,000 unit DAILY YISEL Administration Donepezil HCl 5 mg 06/24/18 10:00 06/27/18 09:29 Aricept - PO 5 mg DAILY YISEL Administration Enoxaparin Sodium 40 mg 06/24/18 10:00 06/27/18 09:28 Lovenox - SQ 40 mg DAILY YISEL Administration Guaifenesin/Codeine Phosphate 5 ml 06/27/18 11:21 Robitussin Ac - PO TID PRN COUGH Ceftriaxone Sodium 1 gm/ 50 mls @ 100 mls/hr 06/25/18 17:30 06/27/18 09:28 Dextrose IVPB 100 mls/hr DAILY YISEL Administration Protocol Insulin Aspart 1 vial 06/25/18 14:30 06/27/18 09:34 Novolog Vial Sliding Scale - SQ 8 units Q4HWA YISEL Administration Protocol Insulin Detemir 15 units 06/27/18 22:00 Levemir Vial SQ HS YISEL Insulin Detemir 20 units 06/28/18 07:00 Levemir Vial SQ AM YISEL Losartan Potassium 100 mg 06/24/18 10:00 06/27/18 09:29 Cozaar - PO 100 mg DAILY YISEL Administration Melatonin 10 mg 06/24/18 22:00 06/26/18 22:24 Melatonin PO 10 mg HS PRN Administration INSOMNIA Methylprednisolone Sodium Succinate 40 mg 06/26/18 18:00 06/27/18 09:28 Solu-Medrol - IVPUSH 40 mg Q8H-IV YISEL Administration Metoprolol Succinate 50 mg 06/24/18 10:00 06/27/18 09:29 Toprol Xl - PO 50 mg DAILY YISEL Administration Mirtazapine 7.5 mg 06/24/18 22:00 06/26/18 22:22 Remeron - PO 7.5 mg HS YISEL Administration Polyethylene Glycol 17 gm 06/26/18 11:00 06/27/18 09:30 Miralax (For Daily Use) - PO 17 gm BID YISEL Administration IMAGING: EKG: Normal sinus rhythm at 73 beats per minute. Left [place] deviation, LVH noted. QTc 486. Chest Xray (admission): Interstitial opacities, due to poor inspiratory effort vs. pulmonary venous congestion. CT head: No acute infarct, intracranial pathology, or hemorrhage. Chest Xray (06/25): Left basilar opacification, blunting of left costophrenic angle questionable for pleural effusion. Chest Xray (06/26): No evidence of pneumonia or CHF. ASSESSMENT/PLAN: Patient is an 78 year old female with history of asthma, hypertension, hyperlipidemia, diabetes, coronary artery disease s/p 1 stent and aortic valve replacement presents with complaint of shortness of breath, and nonproductive cough for the past week. Severe, Persistent Asthma exacerbation -Improving. Patient admits improvement with breathing, and improved inspiratory effort noted upon exam. -Duonebs Q6H PRN -Solu-medrol 40mg IV Q8H -Guaifenesin AC 5mL PO TID PRN for cough Possible pneumonia -WBC increased to 14.1 (10.0 yesterday) -Pulmonology consult (Dr. Potter) appreciated: Ceftriaxone 1gm IV daily (day 3) -CXR today shows no evidence of active pulmonary disease -Urine for strep pneumonia, legionella negative. CHF -Continue Metoprolol XL 50mg PO daily -ECHO shows: LV normal in size, minld concentric LVH, systolic function normal. Trace MR. Trace TR. 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 DM -ISS Q4H -BGM Q4H -Levemir 20mg SQ in AM, 15mg SQ HS HTN -Hypertensive emergency in ED with BP 242/78 and pulmonary edema. -BP at 153/76 -Amlodipine home dose 2.5mg increased to 5mg. Increased to 5mg BID -Continue Metoprolol XL 50mg PO daily -Continue Losartan 100mg PO daily -Will follow BP closely HLD -Continue Atorvastatin 40mg PO HS CAD -Continue Aspirin 81mg PO daily Alzheimer dementia -Donepezil 5mg PO daily Anxiety -Mirtazapine 7.5mg PO HS Insomnia -Melatonin 10mg PO PRN Constipation -Miralax 17gm PO BID FEN -No IV fluids. Patient tolerates oral intake. Encourage judicious oral hydration. -Will follow CMP -Diabetic, salt controlled diet Prophylaxis -Lovenox 40mg SQ daily Disposition -Continue care in medical-surgical floor Visit type - Emergency Visit Emergency Visit: Yes ED Registration Date: 06/24/18 Care time: The patient presented to the Emergency Department on the above date and was hospitalized for further evaluation of their emergent condition. - New Patient This patient is new to me today: No - Critical Care Critical Care patient: No - Discharge Referral Referred to [facility] Med P.C.: No
--- NOTE | 2018-06-27 19:01 | PN ---
Teaching Attending Note Name of Resident: Patrick Maya ATTENDING PHYSICIAN STATEMENT I saw and evaluated the patient. I reviewed the resident's note and discussed the case with the resident. I agree with the resident's findings and plan as documented. SUBJECTIVE: Patient feels better today , feels less shortness of breath, c/o having continues cough. OBJECTIVE: Vital Signs Temperature 98.3 F 06/27/18 14:00 Pulse Rate 79 06/27/18 14:00 Respiratory Rate 18 06/27/18 14:00 Blood Pressure 142/72 06/27/18 14:00 O2 Sat by Pulse Oximetry (%) 97 06/27/18 09:00 GENERAL: The patient is awake, alert, oriented x3 , resting comfortably in bed , no acute distress. HEAD: Normal with no signs of trauma. EYES: PERRL, EOMI , sclera anicteric. ENT: Oropharynx clear without exudates, moist mucous membranes. NECK: Supple without lymphadenopathy or thyromegaly. LUNGS: decreased air entry BL. No accessory muscle use. HEART: Regular rate and rhythm, S1, S2 positive , no rub or gallop. ABDOMEN: Soft, obese. Nontender to palpation. Normoactive bowel sounds, no guarding, no rebound. EXTREMITIES: 2+ pulses b/l. Warm. NEUROLOGICAL: Cranial nerves II through XII grossly intact. Normal speech. PSYCH: Mood and affect appropriate upon my encounter today. SKIN: Warm, dry, normal turgor, no rashes or lesions noted CBCD WBC 14.1 K/mm3 (4.0-10.0) H 06/27/18 06:00 RBC 5.05 M/mm3 (3.60-5.2) 06/27/18 06:00 Hgb 10.5 GM/dL (10.7-15.3) L 06/27/18 06:00 Hct 32.8 % (32.4-45.2) D 06/27/18 06:00 MCV 65.0 fl (80-96) L 06/27/18 06:00 MCHC 32.1 g/dl (32.0-36.0) 06/27/18 06:00 RDW 16.5 % (11.6-15.6) H 06/27/18 06:00 Plt Count 412 K/MM3 (134-434) 06/27/18 06:00 MPV 8.4 fl (7.5-11.1) 06/27/18 06:00 CMP Sodium 139 mmol/L (136-145) 06/27/18 06:00 Potassium 5.0 mmol/L (3.5-5.1) 06/27/18 06:00 Chloride 101 mmol/L (98-107) 06/27/18 06:00 Carbon Dioxide 28 mmol/L (21-32) 06/27/18 06:00 Anion Gap 10 MMOL/L (8-16) 06/27/18 06:00 BUN 34 mg/dL (7-18) H 06/27/18 06:00 Creatinine 1.0 mg/dL (0.55-1.3) 06/27/18 06:00 Creat Clearance w eGFR 53.35 (>60) 06/27/18 06:00 Random Glucose 217 mg/dL (74-106) H 06/27/18 06:00 Calcium 8.8 mg/dL (8.5-10.1) 06/27/18 06:00 Total Bilirubin 0.3 mg/dL (0.2-1) 06/27/18 06:00 AST 13 U/L (15-37) L 06/27/18 06:00 ALT 37 U/L (13-61) 06/27/18 06:00 Alkaline Phosphatase 89 U/L (45-117) 06/27/18 06:00 Total Protein 6.6 g/dl (6.4-8.2) 06/27/18 06:00 Albumin 2.9 g/dl (3.4-5.0) L 06/27/18 06:00 CARDIAC ENZYMES Creatine Kinase 298 IU/L (26-192) H 06/23/18 20:03 Troponin I < 0.02 ng/ml (0.00-0.05) 06/24/18 06:20 Current Medications Generic Name Dose Route Start Last Admin Trade Name Freq PRN Reason Stop Dose Admin Albuterol/Ipratropium 1 amp 06/24/18 13:59 06/25/18 01:54 Duoneb - NEB 1 amp Q6H PRN Administration SHORTNESS OF BREATH Albuterol/Ipratropium 1 amp 06/24/18 14:47 06/27/18 16:30 Duoneb - NEB 1 amp RQID YISEL Administration Amlodipine Besylate 5 mg 06/27/18 22:00 Norvasc - PO BID YISEL Aspirin 81 mg 06/24/18 10:00 06/27/18 09:29 Asa - PO 81 mg DAILY YISEL Administration Atorvastatin Calcium 40 mg 06/24/18 22:00 06/26/18 22:21 Lipitor - PO 40 mg HS YISEL Administration Cholecalciferol 2,000 unit 06/24/18 10:00 06/27/18 09:29 Vitamin D3 - PO 2,000 unit DAILY YISEL Administration Donepezil HCl 5 mg 06/24/18 10:00 06/27/18 09:29 Aricept - PO 5 mg DAILY YISEL Administration Enoxaparin Sodium 40 mg 06/24/18 10:00 06/27/18 09:28 Lovenox - SQ 40 mg DAILY YISEL Administration Guaifenesin/Codeine Phosphate 5 ml 06/27/18 11:21 Robitussin Ac - PO TID PRN COUGH Ceftriaxone Sodium 1 gm/ 50 mls @ 100 mls/hr 06/25/18 17:30 06/27/18 09:28 Dextrose IVPB 100 mls/hr DAILY [facility] Administration Protocol Insulin Aspart 1 vial 06/25/18 14:30 06/27/18 17:52 Novolog Vial Sliding Scale - SQ 12 units Q4HWA [facility] Administration Protocol Insulin Detemir 15 units 06/27/18 22:00 Levemir Vial SQ HS [facility] Insulin Detemir 20 units 06/28/18 07:00 Levemir Vial SQ AM [facility] Losartan Potassium 100 mg 06/24/18 10:00 06/27/18 09:29 Cozaar - PO 100 mg DAILY YISEL Administration Melatonin 10 mg 06/24/18 22:00 06/26/18 22:24 Melatonin PO 10 mg HS PRN Administration INSOMNIA Methylprednisolone Sodium Succinate 40 mg 06/26/18 18:00 06/27/18 17:53 Solu-Medrol - IVPUSH 40 mg Q8H-IV YISEL Administration Metoprolol Succinate 50 mg 06/24/18 10:00 06/27/18 09:29 Toprol Xl - PO 50 mg DAILY YISEL Administration Mirtazapine 7.5 mg 06/24/18 22:00 06/26/18 22:22 Remeron - PO 7.5 mg HS YISEL Administration Polyethylene Glycol 17 gm 06/26/18 11:00 06/27/18 09:30 Miralax (For Daily Use) - PO 17 gm BID YISEL Administration Home Medications Medication Instructions Recorded Amlodipine Besylate 2.5 mg PO DAILY 04/19/18 Aspirin [ASA -] 81 mg PO DAILY 04/19/18 Atorvastatin Ca [Lipitor] 40 mg PO DAILY 04/19/18 Donepezil HCl [Aricept] 5 mg PO DAILY 04/19/18 Cholecalciferol (Vitamin D3) 2,000 unit PO DAILY 06/24/18 [Vitamin D3] Losartan Potassium 100 mg PO DAILY 06/24/18 Melatonin 10 mg PO PRN 06/24/18 Metoprolol Succinate 50 mg PO DAILY 06/24/18 Mirtazapine 7.5 mg PO DAILY 06/24/18 [place]-3/Dha/Epa/Fish Oil [Fish Oil 06/24/18 [place]-3 EC 1,200 mg] Sitagliptin Phos/Metformin HCl 50 mg PO BID 06/24/18 [Janumet Xr 50-500 mg Tablet] ASSESSMENT AND PLAN: Patient is a 78yo female with PMHx of Asthma, HTN, CAD, CABG, OA, HLP, DM who presented with SOB and was found to have severe HTN. # HTN emergency is better controlled now, on Losartan, BB, increased the dose of Norvasc, will monitor. ECHO reviewed, vitals q4h #Acute exacerbation of asthma added IV solumedrol 40mg iv [id number] q8h today will titrate down further in am. on Advair, neb. treatments, Pulmonary consult . # DM : will increase levemir 20in am and 15u in pm while patient is on steroids , SSI , check A1c DVT Px: Lovenox
[2018-06-27] MEDS: MIRTAZAPINE 15 MG TABLET (FP) PO SCH (21:35)
[2018-06-27] MEDS: ATORVASTATIN CA 40 MG TABLET (FP) PO SCH (21:35)
[2018-06-28] MEDS: methylPREDNISolone NA SUCC 40 MG/1 ML VIAL IVPUSH SCH ×3 (02:20→21:36)
[2018-06-28] MEDS: INSULIN SLIDING SCALE (NOVOLOG) 1 VIAL SQ SCH ×5 (06:08→21:37)
[2018-06-28] MEDS: INSULIN (LEVEMIR) 100 UNITS/ML UNITS SQ SCH ×2 (06:09→21:38)
[2018-06-28 07:14] LABS: HEMATOCRIT 32.3 % (32.4-45.2); HEMOGLOBIN 10.2 GM/dL (10.7-15.3); MCH 20.7 pg (25.7-33.7); MCHC 31.6 g/dl (32.0-36.0); MEAN CELL VOLUME 65.3 fl (80-96); PLATELET COUNT 383 K/MM3 (134-434); RBC 4.94 M/mm3 (3.60-5.2); RDW 16.7 % (11.6-15.6); WHITE BLOOD COUNT 11.1 K/mm3 (4.0-10.0)
[2018-06-28 07:50] LABS: ALBUMIN 2.7 g/dl (3.4-5.0); ALK PHOS 81 U/L (45-117); ANION GAP 8 MMOL/L (8-16); BILIRUBIN,TOTAL 0.3 mg/dL (0.2-1); BLOOD UREA NITROGEN 32 mg/dL (7-18); CALCIUM 8.3 mg/dL (8.5-10.1); CHLORIDE 103 mmol/L (98-107); CO2 28 mmol/L (21-32); GLUCOSE,RANDOM 250 mg/dL (74-106); MAGNESIUM 2.7 mg/dL (1.8-2.4); PHOSPHOROUS 3.9 mg/dL (2.5-4.9); POTASSIUM 4.5 mmol/L (3.5-5.1); SGOT/AST 11 U/L (15-37); SGPT/ALT 39 U/L (13-61); SODIUM 139 mmol/L (136-145); TOT PROT 6.3 g/dl (6.4-8.2)
[2018-06-28] MEDS: ALBUTEROL SO4 2.5/IPRATROPIUM 0.5 INH SOL 3 ML VIAL.NEB. NEB SCH ×4 (08:01→20:08)
[2018-06-28] MEDS ORDERED: cefTRIAXone SODIUM 1 GM VIAL ONE (08:41)
[2018-06-28] MEDS ORDERED: DEXTROSE 5%-WATER - 50 ML IVPB ONE (08:41)
[2018-06-28] MEDS ORDERED: PT OWN MED DRAWER 7, Y5N ONE (08:41)
[2018-06-28] MEDS: ENOXAPARIN NA (PORCINE) 40 MG/0.4 ML DISP.SYRIN SQ SCH (09:01)
[2018-06-28] MEDS: amLODIPine BESYLATE 5 MG TABLET (FP) PO SCH ×2 (09:02→21:37)
[2018-06-28] MEDS: CHOLECALCIFEROL (VITAMIN D3) 1,000 UNIT TABLET (FP) PO SCH (09:02)
[2018-06-28] MEDS: ASPIRIN 81 MG CHEWABLE TABLETS PO SCH (09:02)
[2018-06-28] MEDS: CEFTRIAXONE 1 GM in DEXTROSE 5%-WATER - 50 ML IVPB SCH (09:02)
[2018-06-28] MEDS: DONEPEZIL HCL 5 MG TABLET (FP) PO SCH (09:02)
[2018-06-28] MEDS: POLYETHYLENE GLYCOL 3350 119 GM BTL PO SCH ×2 (09:03→21:38)
[2018-06-28] MEDS: LOSARTAN POTASSIUM 50 MG TABLET (FP) PO SCH (09:13)
[2018-06-28] MEDS ORDERED: INSULIN (NOVOLOG) ASPART 100 UNITS/ML 10ML VIAL ONE ×2 (11:30→21:25)
--- NOTE | 2018-06-28 12:01 | PN ---
Progress Note (short form) - Note Progress Note: Patient is feeling better, feels better, less cough the medication helps. Vital Signs Temperature 97.9 F 06/28/18 10:00 Pulse Rate 68 06/28/18 10:00 Respiratory Rate 18 06/28/18 10:00 Blood Pressure 106/84 06/28/18 10:00 O2 Sat by Pulse Oximetry (%) 92 L 06/28/18 09:00 CBCD GENERAL: The patient is awake, alert, oriented x3 ,resting comfortably in bed, no acute distress. HEAD: Normal with no signs of trauma. EYES: PERRL, EOMI , sclera anicteric. ENT: Oropharynx clear without exudates, moist mucous membranes. NECK: Supple without lymphadenopathy or thyromegaly. LUNGS: decreased air entry BL. positive for wheezing BL, No accessory muscle use. HEART: Regular rate and rhythm, S1, S2 positive , no rub or gallop. ABDOMEN: Soft, obese. Nontender to palpation. Normoactive bowel sounds, no guarding, no rebound. EXTREMITIES: 2+ pulses b/l. Warm. NEUROLOGICAL: Cranial nerves II through XII grossly intact. Normal speech. PSYCH: Mood and affect appropriate upon my encounter today. SKIN: Warm, dry, normal turgor, no rashes or lesions noted WBC 11.1 K/mm3 (4.0-10.0) H 06/28/18 06:00 RBC 4.94 M/mm3 (3.60-5.2) 06/28/18 06:00 Hgb 10.2 GM/dL (10.7-15.3) L 06/28/18 06:00 Hct 32.3 % (32.4-45.2) L 06/28/18 06:00 MCV 65.3 fl (80-96) L 06/28/18 06:00 MCHC 31.6 g/dl (32.0-36.0) L 06/28/18 06:00 RDW 16.7 % (11.6-15.6) H 06/28/18 06:00 Plt Count 383 K/MM3 (134-434) 06/28/18 06:00 MPV 8.0 fl (7.5-11.1) 06/28/18 06:00 CMP Sodium 139 mmol/L (136-145) 06/28/18 06:00 Potassium 4.5 mmol/L (3.5-5.1) 06/28/18 06:00 Chloride 103 mmol/L (98-107) 06/28/18 06:00 Carbon Dioxide 28 mmol/L (21-32) 06/28/18 06:00 Anion Gap 8 MMOL/L (8-16) 06/28/18 06:00 BUN 32 mg/dL (7-18) H 06/28/18 06:00 Creatinine 1.0 mg/dL (0.55-1.3) 06/28/18 06:00 Creat Clearance w eGFR 53.35 (>60) 06/28/18 06:00 Random Glucose 250 mg/dL (74-106) H 06/28/18 06:00 Calcium 8.3 mg/dL (8.5-10.1) L 06/28/18 06:00 Total Bilirubin 0.3 mg/dL (0.2-1) 06/28/18 06:00 AST 11 U/L (15-37) L 06/28/18 06:00 ALT 39 U/L (13-61) 06/28/18 06:00 Alkaline Phosphatase 81 U/L (45-117) 06/28/18 06:00 Total Protein 6.3 g/dl (6.4-8.2) L 06/28/18 06:00 Albumin 2.7 g/dl (3.4-5.0) L 06/28/18 06:00 CARDIAC ENZYMES Creatine Kinase 298 IU/L (26-192) H 06/23/18 20:03 Troponin I < 0.02 ng/ml (0.00-0.05) 06/24/18 06:20 Current Medications Generic Name Dose Route Start Last Admin Trade Name Freq PRN Reason Stop Dose Admin Albuterol/Ipratropium 1 amp 06/24/18 13:59 06/25/18 01:54 Duoneb - NEB 1 amp Q6H PRN Administration SHORTNESS OF BREATH Albuterol/Ipratropium 1 amp 06/24/18 14:47 06/28/18 11:38 Duoneb - NEB 1 amp RQID YISEL Administration Amlodipine Besylate 5 mg 06/27/18 22:00 06/28/18 09:02 Norvasc - PO 5 mg BID YISEL Administration Aspirin 81 mg 06/24/18 10:00 06/28/18 09:02 Asa - PO 81 mg DAILY YISEL Administration Atorvastatin Calcium 40 mg 06/24/18 22:00 06/27/18 21:35 Lipitor - PO 40 mg HS YISEL Administration Cholecalciferol 2,000 unit 06/24/18 10:00 06/28/18 09:02 Vitamin D3 - PO 2,000 unit DAILY YISEL Administration Donepezil HCl 5 mg 06/24/18 10:00 06/28/18 09:02 Aricept - PO 5 mg DAILY YISEL Administration Enoxaparin Sodium 40 mg 06/24/18 10:00 06/28/18 09:01 Lovenox - SQ 40 mg DAILY YISEL Administration Guaifenesin/Codeine Phosphate 5 ml 06/27/18 11:21 Robitussin Ac - PO TID PRN COUGH Ceftriaxone Sodium 1 gm/ 50 mls @ 100 mls/hr 06/25/18 17:30 06/28/18 09:02 Dextrose IVPB 100 mls/hr DAILY YISEL Administration Protocol Insulin Aspart 1 vial 06/25/18 14:30 06/28/18 11:36 Novolog Vial Sliding Scale - SQ 12 units Q4HWA YISEL Administration Protocol Insulin Detemir 15 units 06/27/18 22:00 06/27/18 21:36 Levemir Vial SQ 15 units HS YISEL Administration Insulin Detemir 20 units 06/28/18 07:00 06/28/18 06:09 Levemir Vial SQ 20 units AM YISEL Administration Losartan Potassium 100 mg 06/24/18 10:00 06/28/18 09:13 Cozaar - PO 100 mg DAILY YISEL Administration Melatonin 10 mg 06/24/18 22:00 06/26/18 22:24 Melatonin PO 10 mg HS PRN Administration INSOMNIA Methylprednisolone Sodium Succinate 40 mg 06/26/18 18:00 06/28/18 09:13 Solu-Medrol - IVPUSH 40 mg Q8H-IV YISEL Administration Metoprolol Succinate 50 mg 06/24/18 10:00 06/28/18 09:02 Toprol Xl - PO 50 mg DAILY YISEL Administration Mirtazapine 7.5 mg 06/24/18 22:00 06/27/18 21:35 Remeron - PO 7.5 mg HS YISEL Administration Polyethylene Glycol 17 gm 06/26/18 11:00 06/28/18 09:03 Miralax (For Daily Use) - PO 17 gm BID YISEL Administration Home Medications Medication Instructions Recorded Amlodipine Besylate 2.5 mg PO DAILY 04/19/18 Aspirin [ASA -] 81 mg PO DAILY 04/19/18 Atorvastatin Ca [Lipitor] 40 mg PO DAILY 04/19/18 Donepezil HCl [Aricept] 5 mg PO DAILY 04/19/18 Cholecalciferol (Vitamin D3) 2,000 unit PO DAILY 06/24/18 [Vitamin D3] Losartan Potassium 100 mg PO DAILY 06/24/18 Melatonin 10 mg PO PRN 06/24/18 Metoprolol Succinate 50 mg PO DAILY 06/24/18 Mirtazapine 7.5 mg PO DAILY 06/24/18 [place]-3/Dha/Epa/Fish Oil [Fish Oil 06/24/18 [place] EC 1,200 mg] Sitagliptin Phos/Metformin HCl 50 mg PO BID 06/24/18 [Janumet Xr 50-500 mg Tablet] Laboratory Tests 06/23/18 06/24/18 06/25/18 20:03 06:20 06:00 WBC 9.8 10.4 H 10.4 H 06/26/18 06/27/18 06/28/18 05:30 06:00 06:00 WBC 10.0 14.1 H 11.1 H ASSESSMENT AND PLAN: Patient is a 78yo female with PMHx of Asthma, HTN, CAD, CABG, OA, HLP, DM who presented with SOB and was found to have severe HTN. # HTN emergency ,on Losartan, BB, increased the dose of Norvasc, will continue to monitor. ECHO reviewed, vitals q4h #Acute exacerbation of asthma added IV solumedrol 40mg iv q8h , continue neb treatments,advair, Pulmonary consult . # DM : will continue Levemir 20in am and 15u in pm while patient is on steroids , SSI , will continue to monitor the Blood sugar, check A1c DVT Px: Lovenox Visit type - Emergency Visit Emergency Visit: Yes ED Registration Date: 06/24/18 Care time: The patient presented to the Emergency Department on the above date and was hospitalized for further evaluation of their emergent condition. - New Patient This patient is new to me today: No - Critical Care Critical Care patient: No - Discharge Referral Referred to [facility] No
--- NOTE | 2018-06-28 12:07 | PN ---
Progress Note (short form) - Note Progress Note: PULMONARY Breathing better today but feels weak. +nonproductive cough and less wheezing. no fevers. Vital Signs Period Temp Pulse Resp BP Sys/[place] Pulse Ox Last 24 Hr 97.3 F-98.3 F 68-96 16-18 106-170/64-84 92-94 Gen: NAD at rest Heart: RRR Lung: distant breath sounds Abd: soft, nontender Ext: no edema CBC, BMP 06/28/18 06:00 06/28/18 06:00 Active Medications Albuterol/Ipratropium (Duoneb -) 1 amp NEB Q6H PRN PRN Reason: SHORTNESS OF BREATH Last Admin: 06/25/18 01:54 Dose: 1 amp Albuterol/Ipratropium (Duoneb -) 1 amp NEB RQID [facility] Last Admin: 06/28/18 11:38 Dose: 1 amp Amlodipine Besylate (Norvasc -) 5 mg PO BID [facility] Last Admin: 06/28/18 09:02 Dose: 5 mg Aspirin (Asa -) 81 mg PO DAILY [facility] Last Admin: 06/28/18 09:02 Dose: 81 mg Atorvastatin Calcium (Lipitor -) 40 mg PO HS [facility] Last Admin: 06/27/18 21:35 Dose: 40 mg Cholecalciferol (Vitamin D3 -) 2,000 unit PO DAILY [facility] Last Admin: 06/28/18 09:02 Dose: 2,000 unit Donepezil HCl (Aricept -) 5 mg PO DAILY [facility] Last Admin: 06/28/18 09:02 Dose: 5 mg Enoxaparin Sodium (Lovenox -) 40 mg SQ DAILY [facility] Last Admin: 06/28/18 09:01 Dose: 40 mg Guaifenesin/Codeine Phosphate (Robitussin Ac -) 5 ml PO TID PRN PRN Reason: COUGH Ceftriaxone Sodium 1 gm/ (Dextrose) 50 mls @ 100 mls/hr IVPB DAILY [facility]; Protocol Last Admin: 06/28/18 09:02 Dose: 100 mls/hr Insulin Aspart (Novolog Vial Sliding Scale -) 1 vial SQ Q4HWA [facility]; Protocol Last Admin: 06/28/18 11:36 Dose: 12 units Insulin Detemir (Levemir Vial) 15 units SQ HS [facility] Last Admin: 06/27/18 21:36 Dose: 15 units Insulin Detemir (Levemir Vial) 20 units SQ AM [facility] Last Admin: 06/28/18 06:09 Dose: 20 units Losartan Potassium (Cozaar -) 100 mg PO DAILY [facility] Last Admin: 06/28/18 09:13 Dose: 100 mg Melatonin (Melatonin) 10 mg PO HS PRN PRN Reason: INSOMNIA Last Admin: 06/26/18 22:24 Dose: 10 mg Methylprednisolone Sodium Succinate (Solu-Medrol -) 40 mg IVPUSH Q8H-IV [facility] Last Admin: 06/28/18 09:13 Dose: 40 mg Metoprolol Succinate (Toprol Xl -) 50 mg PO DAILY [facility] Last Admin: 06/28/18 09:02 Dose: 50 mg Mirtazapine (Remeron -) 7.5 mg PO HS [facility] Last Admin: 06/27/18 21:35 Dose: 7.5 mg Polyethylene Glycol (Miralax (For Daily Use) -) 17 gm PO BID [facility] Last Admin: 06/28/18 09:03 Dose: 17 gm A/P Acute Asthma Exacerbation Pneumonia Hypertensive Urgency resolved LV Diastolic Dysfunction h/o AVR DM - continue antibiotics - will decrease medrol to q12h - inhaled bronchodilators - O2 to keep Spo2 >90% - glucose control while on systemic steroids - DVT prophylaxis
[2018-06-28] MEDS: MIRTAZAPINE 15 MG TABLET (FP) PO SCH (21:37)
[2018-06-28] MEDS: ATORVASTATIN CA 40 MG TABLET (FP) PO SCH (21:37)
[2018-06-29] MEDS: INSULIN (LEVEMIR) 100 UNITS/ML UNITS SQ SCH ×2 (06:32→21:27)
[2018-06-29] MEDS: INSULIN SLIDING SCALE (NOVOLOG) 1 VIAL SQ SCH ×5 (06:33→21:25)
[2018-06-29] MEDS: ALBUTEROL SO4 2.5/IPRATROPIUM 0.5 INH SOL 3 ML VIAL.NEB. NEB SCH ×2 (08:13→11:35)
--- NOTE | 2018-06-29 09:48 | PN ---
Physical Exam: SUBJECTIVE: Patient seen and examined at bedside this morning. Still complains of cough productive with clear-white colored sputum that is improving. Admits diminishing shortness of breath. Denies fevers, chills, palpitations, abdominal pain, nausea, vomiting, diarrhea, constipation. OBJECTIVE: Vital Signs Period Temp Pulse Resp BP Sys/[place] Pulse Ox Last 24 Hr 97.7 F-98.6 F 63-75 18-18 106-177/50-84 97 GENERAL: The patient is awake, alert, and fully oriented, resting comfortably in bed, no acute distress. HEAD: Normal with no signs of trauma. EYES: PERRLA, extraocular movements intact, sclera anicteric, conjunctiva noninjected b/l. ENT: Oropharynx clear without exudates, moist mucous membranes. NECK: Supple without lymphadenopathy or thyromegaly. LUNGS: Improving inspiratory effort, and air entery b/l. Faint wheezing and crackles auscultated in b/l lower lobes. No accessory muscle use. HEART: Regular rate and rhythm, S1, S2 without murmur, rub or gallop. ABDOMEN: Soft, obese. Nontender to palpation. Normoactive bowel sounds, no guarding, no rebound, no hepatosplenomegaly. EXTREMITIES: 2+ radial and dorsalis pedis pulses b/l. Warm. NEUROLOGICAL: Cranial nerves II through XII grossly intact. Normal speech. Strength 5/5 b/l upper and lower extremities. No gross focal deficits. PSYCH: Mood and affect appropriate upon my encounter today. SKIN: Warm, dry, normal turgor, no rashes or lesions noted Laboratory Results - last 24 hr 06/28/18 06/28/18 06/29/18 14:33 17:03 00:06 POC Glucometer 396 356 268 06/29/18 06:14 POC Glucometer 274 Active Medications Generic Name Dose Route Start Last Admin Trade Name Freq PRN Reason Stop Dose Admin Albuterol/Ipratropium 1 amp 06/24/18 13:59 06/25/18 01:54 Duoneb - NEB 1 amp Q6H PRN Administration SHORTNESS OF BREATH Albuterol/Ipratropium 1 amp 06/24/18 14:47 06/29/18 08:13 Duoneb - NEB 1 amp RQID YISEL Administration Amlodipine Besylate 5 mg 06/27/18 22:00 06/28/18 21:37 Norvasc - PO 5 mg BID YISEL Administration Aspirin 81 mg 06/24/18 10:00 06/28/18 09:02 Asa - PO 81 mg DAILY YISEL Administration Atorvastatin Calcium 40 mg 06/24/18 22:00 06/28/18 21:37 Lipitor - PO 40 mg HS YISEL Administration Cholecalciferol 2,000 unit 06/24/18 10:00 06/28/18 09:02 Vitamin D3 - PO 2,000 unit DAILY YISEL Administration Donepezil HCl 5 mg 06/24/18 10:00 06/28/18 09:02 Aricept - PO 5 mg DAILY YISEL Administration Enoxaparin Sodium 40 mg 06/24/18 10:00 06/28/18 09:01 Lovenox - SQ 40 mg DAILY YISEL Administration Guaifenesin/Codeine Phosphate 5 ml 06/27/18 11:21 Robitussin Ac - PO TID PRN COUGH Ceftriaxone Sodium 1 gm/ 50 mls @ 100 mls/hr 06/25/18 17:30 06/28/18 09:02 Dextrose IVPB 100 mls/hr DAILY YISEL Administration Protocol Insulin Aspart 1 vial 06/25/18 14:30 06/29/18 06:33 Novolog Vial Sliding Scale - SQ 6 units Q4HWA [facility] Administration Protocol Insulin Detemir 15 units 06/27/18 22:00 06/28/18 21:38 Levemir Vial SQ 15 units HS YISEL Administration Insulin Detemir 20 units 06/28/18 07:00 06/29/18 06:32 Levemir Vial SQ 20 units AM YISEL Administration Losartan Potassium 100 mg 06/24/18 10:00 06/28/18 09:13 Cozaar - PO 100 mg DAILY YISEL Administration Melatonin 10 mg 06/24/18 22:00 06/26/18 22:24 Melatonin PO 10 mg HS PRN Administration INSOMNIA Methylprednisolone Sodium Succinate 40 mg 06/28/18 22:00 06/28/18 21:36 Solu-Medrol - IVPUSH 40 mg BID YISEL Administration Metoprolol Succinate 50 mg 06/24/18 10:00 06/28/18 09:02 Toprol Xl - PO 50 mg DAILY YISEL Administration Mirtazapine 7.5 mg 06/24/18 22:00 06/28/18 21:37 Remeron - PO 7.5 mg HS YISEL Administration Polyethylene Glycol 17 gm 06/26/18 11:00 06/28/18 21:38 Miralax (For Daily Use) - PO Not Given BID YISEL IMAGING: EKG: Normal sinus rhythm at 73 beats per minute. Left [place] deviation, LVH noted. QTc 486. Chest Xray (admission): Interstitial opacities, due to poor inspiratory effort vs. pulmonary venous congestion. CT head: No acute infarct, intracranial pathology, or hemorrhage. Chest Xray (06/25): Left basilar opacification, blunting of left costophrenic angle questionable for pleural effusion. Chest Xray (06/26): No evidence of pneumonia or CHF. ASSESSMENT/PLAN: Patient is an 78 year old female with history of asthma, hypertension, hyperlipidemia, diabetes, coronary artery disease s/p 1 stent and aortic valve replacement presents with complaint of shortness of breath, and nonproductive cough for the past week. Severe, Persistent Asthma exacerbation -Improving. Patient admits improvement with breathing, and improved inspiratory effort noted upon exam. -Duonebs Q6H PRN -Solu-medrol 40mg IV BID -Guaifenesin AC 5mL PO TID PRN for cough Possible pneumonia -WBC increased to 14.1 (10.0 yesterday) -Pulmonology consult (Dr. Potter) appreciated: Ceftriaxone 1gm IV daily (day 3) -CXR today shows no evidence of active pulmonary disease -Urine for strep pneumonia, legionella negative. CHF -Continue Metoprolol XL 50mg PO daily -ECHO shows: LV normal in size, minld concentric LVH, systolic function normal. Trace MR. Trace TR. 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 DM -ISS Q4H -BGM Q4H -Levemir 20mg SQ in AM, 15mg SQ HS HTN -Hypertensive emergency in ED with BP 242/78 and pulmonary edema. -Amlodipine home dose 2.5mg increased to 5mg. Increased to 5mg BID -Continue Metoprolol XL 50mg PO daily -Continue Losartan 100mg PO daily -Will follow BP closely HLD -Continue Atorvastatin 40mg PO HS CAD -Continue Aspirin 81mg PO daily Alzheimer dementia -Donepezil 5mg PO daily Anxiety -Mirtazapine 7.5mg PO HS Insomnia -Melatonin 10mg PO PRN Constipation -Miralax 17gm PO BID FEN -No IV fluids. Patient tolerates oral intake. Encourage judicious oral hydration. -Will follow CMP -Diabetic, salt controlled diet Prophylaxis -Lovenox 40mg SQ daily Disposition -Continue care in medical-surgical floor Visit type - Emergency Visit Emergency Visit: Yes ED Registration Date: 06/24/18 Care time: The patient presented to the Emergency Department on the above date and was hospitalized for further evaluation of their emergent condition. - New Patient This patient is new to me today: No - Critical Care Critical Care patient: No - Discharge Referral [facility]erred [facility] No
[2018-06-29] MEDS ORDERED: DEXTROSE 5%-WATER - 50 ML IVPB ONE (10:32)
[2018-06-29] MEDS ORDERED: cefTRIAXone SODIUM 1 GM VIAL ONE (10:32)
[2018-06-29] MEDS: CEFTRIAXONE 1 GM in DEXTROSE 5%-WATER - 50 ML IVPB SCH (10:46)
[2018-06-29] MEDS: ENOXAPARIN NA (PORCINE) 40 MG/0.4 ML DISP.SYRIN SQ SCH (10:46)
[2018-06-29] MEDS: ASPIRIN 81 MG CHEWABLE TABLETS PO SCH (10:47)
[2018-06-29] MEDS: POLYETHYLENE GLYCOL 3350 119 GM BTL PO SCH ×2 (10:47→21:25)
[2018-06-29] MEDS: methylPREDNISolone NA SUCC 40 MG/1 ML VIAL IVPUSH SCH ×2 (10:47→21:25)
[2018-06-29] MEDS: LOSARTAN POTASSIUM 50 MG TABLET (FP) PO SCH (10:47)
[2018-06-29] MEDS: CHOLECALCIFEROL (VITAMIN D3) 1,000 UNIT TABLET (FP) PO SCH (10:47)
[2018-06-29] MEDS: amLODIPine BESYLATE 5 MG TABLET (FP) PO SCH ×2 (10:47→21:27)
[2018-06-29] MEDS: DONEPEZIL HCL 5 MG TABLET (FP) PO SCH (10:48)
--- NOTE | 2018-06-29 12:19 | PN ---
Teaching Attending Note Name of Resident: Patrick Maya ATTENDING PHYSICIAN STATEMENT I saw and evaluated the patient. I reviewed the resident's note and discussed the case with the resident. I agree with the resident's findings and plan as documented. SUBJECTIVE: Patient is comfortable with no acute distress, better , still coughing . OBJECTIVE: Vital Signs Temperature 97.5 F L 06/29/18 10:00 Pulse Rate 74 06/29/18 10:00 Respiratory Rate 20 06/29/18 10:00 Blood Pressure 154/79 06/29/18 10:00 O2 Sat by Pulse Oximetry (%) 97 06/28/18 21:00 GENERAL: The patient is awake, alert, oriented x3 ,resting comfortably in bed, no acute distress. HEAD: Normal with no signs of trauma. EYES: PERRL, EOMI , sclera anicteric. ENT: Oropharynx clear without exudates, moist mucous membranes. NECK: Supple without lymphadenopathy or thyromegaly. LUNGS: decreased air entry BL. positive for wheezing BL, No accessory muscle use. HEART: Regular rate and rhythm, S1, S2 positive , no rub or gallop. ABDOMEN: Soft, obese. Nontender to palpation. Normoactive bowel sounds, no guarding, no rebound. EXTREMITIES: 2+ pulses b/l. Warm. NEUROLOGICAL: Cranial nerves II through XII grossly intact. Normal speech. PSYCH: Mood and affect appropriate upon my encounter today. SKIN: Warm, dry, normal turgor, no rashes or lesions noted CBCD WBC 11.1 K/mm3 (4.0-10.0) H 06/28/18 06:00 RBC 4.94 M/mm3 (3.60-5.2) 06/28/18 06:00 Hgb 10.2 GM/dL (10.7-15.3) L 06/28/18 06:00 Hct 32.3 % (32.4-45.2) L 06/28/18 06:00 MCV 65.3 fl (80-96) L 06/28/18 06:00 MCHC 31.6 g/dl (32.0-36.0) L 06/28/18 06:00 RDW 16.7 % (11.6-15.6) H 06/28/18 06:00 Plt Count 383 K/MM3 (134-434) 06/28/18 06:00 MPV 8.0 fl (7.5-11.1) 06/28/18 06:00 CMP Sodium 139 mmol/L (136-145) 06/28/18 06:00 Potassium 4.5 mmol/L (3.5-5.1) 06/28/18 06:00 Chloride 103 mmol/L (98-107) 06/28/18 06:00 Carbon Dioxide 28 mmol/L (21-32) 06/28/18 06:00 Anion Gap 8 MMOL/L (8-16) 06/28/18 06:00 BUN 32 mg/dL (7-18) H 06/28/18 06:00 Creatinine 1.0 mg/dL (0.55-1.3) 06/28/18 06:00 Creat Clearance w eGFR 53.35 (>60) 06/28/18 06:00 Random Glucose 250 mg/dL (74-106) H 06/28/18 06:00 Calcium 8.3 mg/dL (8.5-10.1) L 06/28/18 06:00 Total Bilirubin 0.3 mg/dL (0.2-1) 06/28/18 06:00 AST 11 U/L (15-37) L 06/28/18 06:00 ALT 39 U/L (13-61) 06/28/18 06:00 Alkaline Phosphatase 81 U/L (45-117) 06/28/18 06:00 Total Protein 6.3 g/dl (6.4-8.2) L 06/28/18 06:00 Albumin 2.7 g/dl (3.4-5.0) L 06/28/18 06:00 CARDIAC ENZYMES Creatine Kinase 298 IU/L (26-192) H 06/23/18 20:03 Troponin I < 0.02 ng/ml (0.00-0.05) 06/24/18 06:20 Current Medications Generic Name Dose Route Start Last Admin Trade Name Freq PRN Reason Stop Dose Admin Albuterol/Ipratropium 1 amp 06/24/18 13:59 06/25/18 01:54 Duoneb - NEB 1 amp Q6H PRN Administration SHORTNESS OF BREATH Albuterol/Ipratropium 1 amp 06/24/18 14:47 06/29/18 11:35 Duoneb - NEB 1 amp RQID YISEL Administration Amlodipine Besylate 5 mg 06/27/18 22:00 06/29/18 10:47 Norvasc - PO 5 mg BID YISEL Administration Aspirin 81 mg 06/24/18 10:00 06/29/18 10:47 Asa - PO 81 mg DAILY YISEL Administration Atorvastatin Calcium 40 mg 06/24/18 22:00 06/28/18 21:37 Lipitor - PO 40 mg HS YISEL Administration Cholecalciferol 2,000 unit 06/24/18 10:00 06/29/18 10:47 Vitamin D3 - PO 2,000 unit DAILY YISEL Administration Donepezil HCl 5 mg 06/24/18 10:00 06/29/18 10:48 Aricept - PO 5 mg DAILY YISEL Administration Enoxaparin Sodium 40 mg 06/24/18 10:00 06/29/18 10:46 Lovenox - SQ 40 mg DAILY YISEL Administration Guaifenesin/Codeine Phosphate 5 ml 06/27/18 11:21 Robitussin Ac - PO TID PRN COUGH Ceftriaxone Sodium 1 gm/ 50 mls @ 100 mls/hr 06/25/18 17:30 06/29/18 10:46 Dextrose IVPB 100 mls/hr DAILY YISEL Administration Protocol Insulin Aspart 1 vial 06/25/18 14:30 06/29/18 11:01 Novolog Vial Sliding Scale - SQ 8 units Q4HWA [facility] Administration Protocol Insulin Detemir 15 units 06/27/18 22:00 06/28/18 21:38 Levemir Vial SQ 15 units HS YISEL Administration Insulin Detemir 20 units 06/28/18 07:00 06/29/18 06:32 Levemir Vial SQ 20 units AM YISEL Administration Losartan Potassium 100 mg 06/24/18 10:00 06/29/18 10:47 Cozaar - PO 100 mg DAILY YISEL Administration Melatonin 10 mg 06/24/18 22:00 06/26/18 22:24 Melatonin PO 10 mg HS PRN Administration INSOMNIA Methylprednisolone Sodium Succinate 40 mg 06/28/18 22:00 06/29/18 10:47 Solu-Medrol - IVPUSH 40 mg BID YISEL Administration Metoprolol Succinate 50 mg 06/24/18 10:00 06/29/18 10:47 Toprol Xl - PO 50 mg DAILY YISEL Administration Mirtazapine 7.5 mg 06/24/18 22:00 06/28/18 21:37 Remeron - PO 7.5 mg HS YISEL Administration Polyethylene Glycol 17 gm 06/26/18 11:00 06/29/18 10:47 Miralax (For Daily Use) - PO 17 gm BID YISEL Administration Home Medications Medication Instructions Recorded Amlodipine Besylate 2.5 mg PO DAILY 04/19/18 Aspirin [ASA -] 81 mg PO DAILY 04/19/18 Atorvastatin Ca [Lipitor] 40 mg PO DAILY 04/19/18 Donepezil HCl [Aricept] 5 mg PO DAILY 04/19/18 Cholecalciferol (Vitamin D3) 2,000 unit PO DAILY 06/24/18 [Vitamin D3] Losartan Potassium 100 mg PO DAILY 06/24/18 Melatonin 10 mg PO PRN 06/24/18 Metoprolol Succinate 50 mg PO DAILY 06/24/18 Mirtazapine 7.5 mg PO DAILY 06/24/18 [place]-3/Dha/Epa/Fish Oil [Fish Oil 06/24/18 [place]-3 EC 1,200 mg] Sitagliptin Phos/Metformin HCl 50 mg PO BID 06/24/18 [Janumet Xr 50-500 mg Tablet] ASSESSMENT AND PLAN: Patient is a 78yo female with PMHx of Asthma, HTN, CAD, CABG, OA, HLP, DM who presented with SOB and was found to have severe HTN. # HTN emergency , blood pressure is better now, continue Losartan, BB, Norvasc , will continue to monitor. ECHO reviewed, vitals q4h #Acute exacerbation of asthma on IV solumedrol 40mg iv bId reduced the dose. increased robitussin ac to 10cc tid, continue neb treatments,advair, Pulmonary consult . # DM : will continue Levemir 20in am and 15u in pm while patient is on steroids , SSI , will continue to monitor the Blood sugar. DVT Px: Lovenox
--- NOTE | 2018-06-29 13:29 | PN ---
Progress Note (short form) - Note Progress Note: PULMONARY Breathing continues to improve. +nonproductive cough and less wheezing. no fevers. Vital Signs Period Temp Pulse Resp BP Sys/Escamilla Pulse Ox Last 24 Hr 97.5 F-98.6 F 63-75 18-20 136-177/50-80 97-97 Gen: NAD at rest Heart: RRR Lung: distant breath sounds Abd: soft, nontender Ext: no edema CBC, BMP 06/28/18 06:00 06/28/18 06:00 Active Medications Albuterol/Ipratropium (Duoneb -) 1 amp NEB Q6H PRN PRN Reason: SHORTNESS OF BREATH Last Admin: 06/25/18 01:54 Dose: 1 amp Albuterol/Ipratropium (Duoneb -) 1 amp NEB RQID [facility] Last Admin: 06/29/18 11:35 Dose: 1 amp Amlodipine Besylate (Norvasc -) 5 mg PO BID [facility] Last Admin: 06/29/18 10:47 Dose: 5 mg Aspirin (Asa -) 81 mg PO DAILY [facility] Last Admin: 06/29/18 10:47 Dose: 81 mg Atorvastatin Calcium (Lipitor -) 40 mg PO HS [facility] Last Admin: 06/28/18 21:37 Dose: 40 mg Cholecalciferol (Vitamin D3 -) 2,000 unit PO DAILY [facility] Last Admin: 06/29/18 10:47 Dose: 2,000 unit Donepezil HCl (Aricept -) 5 mg PO DAILY [facility] Last Admin: 06/29/18 10:48 Dose: 5 mg Enoxaparin Sodium (Lovenox -) 40 mg SQ DAILY [facility] Last Admin: 06/29/18 10:46 Dose: 40 mg Guaifenesin/Codeine Phosphate (Robitussin Ac -) 5 ml PO TID PRN PRN Reason: COUGH Ceftriaxone Sodium 1 gm/ (Dextrose) 50 mls @ 100 mls/hr IVPB DAILY [facility]; Protocol Last Admin: 06/29/18 10:46 Dose: 100 mls/hr Insulin Aspart (Novolog Vial Sliding Scale -) 1 vial SQ Q4HWA [facility]; Protocol Last Admin: 06/29/18 11:01 Dose: 8 units Insulin Detemir (Levemir Vial) 15 units SQ [facility] Last Admin: 06/28/18 21:38 Dose: 15 units Insulin Detemir (Levemir Vial) 20 units SQ AM [facility] Last Admin: 06/29/18 06:32 Dose: 20 units Losartan Potassium (Cozaar -) 100 mg PO DAILY [facility] Last Admin: 06/29/18 10:47 Dose: 100 mg Melatonin (Melatonin) 10 mg PO HS PRN PRN Reason: INSOMNIA Last Admin: 06/26/18 22:24 Dose: 10 mg Methylprednisolone Sodium Succinate (Solu-Medrol -) 40 mg IVPUSH BID [facility] Last Admin: 06/29/18 10:47 Dose: 40 mg Metoprolol Succinate (Toprol Xl -) 50 mg PO DAILY [facility] Last Admin: 06/29/18 10:47 Dose: 50 mg Mirtazapine (Remeron -) 7.5 mg PO HS [facility] Last Admin: 06/28/18 21:37 Dose: 7.5 mg Polyethylene Glycol (Miralax (For Daily Use) -) 17 gm PO BID [facility] Last Admin: 06/29/18 10:47 Dose: 17 gm A/P Acute Asthma Exacerbation Pneumonia Hypertensive Urgency resolved LV Diastolic Dysfunction h/o AVR DM - continue antibiotics - continue medrol, can likely change steroids to PO prednisone 40mg daily in AM - inhaled bronchodilators - O2 to keep Spo2 >90% - glucose control while on systemic steroids - DVT prophylaxis
[2018-06-29] MEDS ORDERED: ALBUTEROL SO4 2.5/IPRATROPIUM 0.5 INH SOL 3 ML VIAL.NEB. NEB PRN (16:40)
[2018-06-29] MEDS: MIRTAZAPINE 15 MG TABLET (FP) PO SCH (21:27)
[2018-06-29] MEDS: ATORVASTATIN CA 40 MG TABLET (FP) PO SCH (21:28)
[2018-06-30] MEDS: INSULIN SLIDING SCALE (NOVOLOG) 1 VIAL SQ SCH ×5 (06:18→21:07)
[2018-06-30] MEDS: INSULIN (LEVEMIR) 100 UNITS/ML UNITS SQ SCH (06:19)
[2018-06-30 06:57] LABS: HEMATOCRIT 33.1 % (32.4-45.2); HEMOGLOBIN 10.8 GM/dL (10.7-15.3); MCH 20.9 pg (25.7-33.7); MCHC 32.5 g/dl (32.0-36.0); MEAN CELL VOLUME 64.3 fl (80-96); MEAN PLT VOLUME 8.5 fl (7.5-11.1); PLATELET COUNT 381 K/MM3 (134-434); RBC 5.15 M/mm3 (3.60-5.2); RDW 16.7 % (11.6-15.6); WHITE BLOOD COUNT 9.3 K/mm3 (4.0-10.0)
[2018-06-30 07:15] LABS: ALBUMIN 2.7 g/dl (3.4-5.0); ALK PHOS 74 U/L (45-117); ANION GAP 7 MMOL/L (8-16); BILIRUBIN,TOTAL 0.4 mg/dL (0.2-1); BLOOD UREA NITROGEN 34 mg/dL (7-18); CALCIUM 8.1 mg/dL (8.5-10.1); CHLORIDE 102 mmol/L (98-107); CO2 29 mmol/L (21-32); GLUCOSE,RANDOM 235 mg/dL (74-106); MAGNESIUM 2.7 mg/dL (1.8-2.4); PHOSPHOROUS 4.6 mg/dL (2.5-4.9); SGOT/AST 15 U/L (15-37); SGPT/ALT 30 U/L (13-61); SODIUM 137 mmol/L (136-145)
[2018-06-30] MEDS ORDERED: INSULIN (LEVEMIR) 100 UNITS/ML UNITS SQ SCH ×2 (09:17→22:00)
[2018-06-30] MEDS ORDERED: guaiFENesin/CODEINE 5 ML UNIT-DOSE CUPS PO PRN (09:18)
[2018-06-30] MEDS ORDERED: DEXTROSE 5%-WATER - 50 ML IVPB ONE (09:54)
[2018-06-30] MEDS ORDERED: cefTRIAXone SODIUM 1 GM VIAL ONE (09:54)
[2018-06-30] MEDS: CEFTRIAXONE 1 GM in DEXTROSE 5%-WATER - 50 ML IVPB SCH (09:59)
[2018-06-30] MEDS: methylPREDNISolone NA SUCC 40 MG/1 ML VIAL IVPUSH SCH (10:00)
[2018-06-30] MEDS: ENOXAPARIN NA (PORCINE) 40 MG/0.4 ML DISP.SYRIN SQ SCH (10:03)
[2018-06-30] MEDS: LOSARTAN POTASSIUM 50 MG TABLET (FP) PO SCH (10:04)
[2018-06-30] MEDS: ASPIRIN 81 MG CHEWABLE TABLETS PO SCH (10:04)
[2018-06-30] MEDS: CHOLECALCIFEROL (VITAMIN D3) 1,000 UNIT TABLET (FP) PO SCH (10:04)
[2018-06-30] MEDS: amLODIPine BESYLATE 5 MG TABLET (FP) PO SCH ×2 (10:05→21:07)
[2018-06-30] MEDS: DONEPEZIL HCL 5 MG TABLET (FP) PO SCH (10:05)
[2018-06-30] MEDS: POLYETHYLENE GLYCOL 3350 119 GM BTL PO SCH ×2 (10:05→21:07)
[2018-06-30] MEDS ORDERED: INSULIN (NOVOLOG) ASPART 100 UNITS/ML 10ML VIAL ONE ×2 (10:48→21:06)
--- NOTE | 2018-06-30 11:06 | PN ---
Progress Note, Physician History of Present Illness: pulmonary alert,feeling better,less dyspneic,less cough - Current Medication List Current Medications: Active Medications Albuterol/Ipratropium (Duoneb -) 1 amp NEB Q6H PRN PRN Reason: SHORTNESS OF BREATH Amlodipine Besylate (Norvasc -) 5 mg PO BID [facility] Last Admin: 06/30/18 10:05 Dose: 5 mg Aspirin (Asa -) 81 mg PO DAILY [facility] Last Admin: 06/30/18 10:04 Dose: 81 mg Atorvastatin Calcium (Lipitor -) 40 mg PO HS [facility] Last Admin: 06/29/18 21:28 Dose: 40 mg Cholecalciferol (Vitamin D3 -) 2,000 unit PO DAILY [facility] Last Admin: 06/30/18 10:04 Dose: 2,000 unit Donepezil HCl (Aricept -) 5 mg PO DAILY [facility] Last Admin: 06/30/18 10:05 Dose: 5 mg Enoxaparin Sodium (Lovenox -) 40 mg SQ DAILY [facility] Last Admin: 06/30/18 10:03 Dose: 40 mg Guaifenesin/Codeine Phosphate (Robitussin Ac -) 10 ml PO TID PRN PRN Reason: COUGH Ceftriaxone Sodium 1 gm/ (Dextrose) 50 mls @ 100 mls/hr IVPB DAILY [facility]; Protocol Last Admin: 06/30/18 09:59 Dose: 100 mls/hr Insulin Aspart (Novolog Vial Sliding Scale -) 1 vial SQ Q4HWA [facility]; Protocol Last Admin: 06/30/18 10:53 Dose: 8 units Insulin Detemir (Levemir Vial) 25 units SQ AM [facility] Insulin Detemir (Levemir Vial) 20 units SQ HS [facility] Losartan Potassium (Cozaar -) 100 mg PO DAILY [facility] Last Admin: 06/30/18 10:04 Dose: 100 mg Melatonin (Melatonin) 10 mg PO HS PRN PRN Reason: INSOMNIA Last Admin: 06/26/18 22:24 Dose: 10 mg Methylprednisolone Sodium Succinate (Solu-Medrol -) 40 mg IVPUSH BID [facility] Last Admin: 06/30/18 10:00 Dose: 40 mg Metoprolol Succinate (Toprol Xl -) 50 mg PO DAILY [facility] Last Admin: 06/30/18 10:04 Dose: 50 mg Mirtazapine (Remeron -) 7.5 mg PO HS [facility] Last Admin: 06/29/18 21:27 Dose: 7.5 mg Polyethylene Glycol (Miralax (For Daily Use) -) 17 gm PO BID [facility] Last Admin: 06/30/18 10:05 Dose: 17 gm - Objective Vital Signs: Vital Signs Temperature 98.3 F 06/30/18 09:57 Pulse Rate 70 06/30/18 09:57 Respiratory Rate 19 06/30/18 09:57 Blood Pressure 157/56 L 06/30/18 09:57 O2 Sat by Pulse Oximetry (%) 94 L 06/30/18 09:00 Constitutional: Yes: Well Nourished, Calm Eyes: Yes: WNL HENT: Yes: WNL Neck: Yes: WNL Cardiovascular: Yes: Regular Rate and Rhythm, S1, S2 Respiratory: Yes: Wheezes (scattered makenzie wheezes) Gastrointestinal: Yes: Normal Bowel Sounds, Soft Extremities: Yes: WNL Edema: No Labs: CBC, BMP 06/30/18 06:00 06/30/18 06:00 Problem List - Problems (1) S/P AVR (aortic valve replacement) Code(s): Z95.2 - PRESENCE OF PROSTHETIC HEART VALVE (2) Acute respiratory distress Code(s): R06.03 - ACUTE RESPIRATORY DISTRESS (3) CHF exacerbation Code(s): I50.9 - HEART FAILURE, UNSPECIFIED Qualifiers: Heart failure type: unspecified Qualified Code(s): I50.9 - Heart failure, unspecified (4) Hypertensive urgency Code(s): I16.0 - HYPERTENSIVE URGENCY (5) Pneumonia Code(s): J18.9 - PNEUMONIA, UNSPECIFIED ORGANISM (6) Diabetes Code(s): E11.9 - TYPE 2 DIABETES MELLITUS WITHOUT COMPLICATIONS Assessment/Plan IMP ASTHMA EXACERBATION improving HYPERTENSIVE URGENCY resolved ACUTE PULMONARY EDEMA LIKELY SECONDARY TO HTN DIASTOLIC HF S/P AVR LLL OPACITY R/O PNEUMONIA DM PLAN STEROID taper INHALED BRONCHODILATORS ABX BP MEDS STRICT I+OS DR MA Problem List - Problems (1) S/P AVR (aortic valve replacement) Code(s): Z95.2 - PRESENCE OF PROSTHETIC HEART VALVE (2) Acute respiratory distress Code(s): R06.03 - ACUTE RESPIRATORY DISTRESS (3) CHF exacerbation Code(s): I50.9 - HEART FAILURE, UNSPECIFIED Qualifiers: Heart failure type: unspecified Qualified Code(s): I50.9 - Heart failure, unspecified (4) Hypertensive urgency Code(s): I16.0 - HYPERTENSIVE URGENCY (5) Pneumonia Code(s): J18.9 - PNEUMONIA, UNSPECIFIED ORGANISM (6) Diabetes Code(s): E11.9 - TYPE 2 DIABETES MELLITUS WITHOUT COMPLICATIONS
--- NOTE | 2018-06-30 17:49 | PN ---
Physical Exam: SUBJECTIVE: Patient seen and examined at bedside this morning. Still complains of cough productive with clear-white colored sputum that is improving. Admits improvement with breathing. Denies fevers, chills, palpitations, abdominal pain , nausea, vomiting, diarrhea, constipation. OBJECTIVE: Vital Signs Period Temp Pulse Resp BP Sys/Escamilla Pulse Ox Last 24 Hr 97.8 F-98.9 F 62-87 18-20 151-161/56-79 94-97 GENERAL: The patient is awake, alert, and fully oriented, resting comfortably in bed, no acute distress. HEAD: Normal with no signs of trauma. EYES: PERRLA, extraocular movements intact, sclera anicteric, conjunctiva noninjected b/l. ENT: Oropharynx clear without exudates, moist mucous membranes. NECK: Supple without lymphadenopathy or thyromegaly. LUNGS: Improving inspiratory effort, and air entery b/l. Faint wheezing and crackles auscultated in b/l lower lobes. No accessory muscle use. HEART: Regular rate and rhythm, S1, S2 without murmur, rub or gallop. ABDOMEN: Soft, obese. Nontender to palpation. Normoactive bowel sounds, no guarding, no rebound, no hepatosplenomegaly. EXTREMITIES: 2+ radial and dorsalis pedis pulses b/l. Warm. NEUROLOGICAL: Cranial nerves II through XII grossly intact. Normal speech. Strength 5/5 b/l upper and lower extremities. No gross focal deficits. PSYCH: Mood and affect appropriate upon my encounter today. SKIN: Warm, dry, normal turgor, no rashes or lesions noted Laboratory Results - last 24 hr 06/27/18 06/28/18 06/28/18 17:45 11:32 20:38 WBC RBC Hgb Hct MCV MCH MCHC RDW Plt Count MPV Sodium Potassium Chloride Carbon Dioxide Anion Gap BUN Creatinine Creat Clearance w eGFR POC Glucometer 444 403 401 Random Glucose Calcium Phosphorus Magnesium Total Bilirubin AST ALT Alkaline Phosphatase Total Protein Albumin 06/28/18 06/29/18 06/29/18 20:40 17:21 21:24 WBC RBC Hgb Hct MCV MCH MCHC RDW Plt Count MPV Sodium Potassium Chloride Carbon Dioxide Anion Gap BUN Creatinine Creat Clearance w eGFR POC Glucometer 441 264 310 Random Glucose Calcium Phosphorus Magnesium Total Bilirubin AST ALT Alkaline Phosphatase Total Protein Albumin 06/30/18 06/30/18 06/30/18 06:00 06:00 06:18 WBC 9.3 RBC 5.15 Hgb 10.8 Hct 33.1 MCV 64.3 L MCH 20.9 L MCHC 32.5 RDW 16.7 H Plt Count 381 MPV 8.5 Sodium 137 Potassium 5.0 Chloride 102 Carbon Dioxide 29 Anion Gap 7 L BUN 34 H Creatinine 1.0 Creat Clearance w eGFR 53.35 POC Glucometer 258 Random Glucose 235 H Calcium 8.1 L Phosphorus 4.6 Magnesium 2.7 H Total Bilirubin 0.4 AST 15 ALT 30 Alkaline Phosphatase 74 Total Protein 6.0 L Albumin 2.7 L 06/30/18 06/30/18 06/30/18 10:52 14:48 17:16 WBC RBC Hgb Hct MCV MCH MCHC RDW Plt Count MPV Sodium Potassium Chloride Carbon Dioxide Anion Gap BUN Creatinine Creat Clearance w eGFR POC Glucometer 340 345 285 Random Glucose Calcium Phosphorus Magnesium Total Bilirubin AST ALT Alkaline Phosphatase Total Protein Albumin Active Medications Generic Name Dose Route Start Last Admin Trade Name Freq PRN Reason Stop Dose Admin Albuterol/Ipratropium 1 amp 06/29/18 16:40 Duoneb - NEB Q6H PRN SHORTNESS OF BREATH Amlodipine Besylate 5 mg 06/27/18 22:00 06/30/18 10:05 Norvasc - PO 5 mg BID YISEL Administration Aspirin 81 mg 06/24/18 10:00 06/30/18 10:04 Asa - PO 81 mg DAILY YISEL Administration Atorvastatin Calcium 40 mg 06/24/18 22:00 06/29/18 21:28 Lipitor - PO 40 mg HS YISEL Administration Cholecalciferol 2,000 unit 06/24/18 10:00 06/30/18 10:04 Vitamin D3 - PO 2,000 unit DAILY YISEL Administration Donepezil HCl 5 mg 06/24/18 10:00 06/30/18 10:05 Aricept - PO 5 mg DAILY YISEL Administration Enoxaparin Sodium 40 mg 06/24/18 10:00 06/30/18 10:03 Lovenox - SQ 40 mg DAILY YISEL Administration Guaifenesin/Codeine Phosphate 10 ml 06/30/18 09:18 Robitussin Ac - PO TID PRN COUGH Ceftriaxone Sodium 1 gm/ 50 mls @ 100 mls/hr 06/25/18 17:30 10/01/18 09:59 Dextrose IVPB 100 mls/hr DAILY YISEL Administration Protocol Insulin Aspart 1 vial 06/25/18 14:30 06/30/18 17:40 Novolog Vial Sliding Scale - SQ 6 units Q4HWA YISEL Administration Protocol Insulin Detemir 25 units 06/30/18 09:17 Levemir Vial SQ AM YISEL Insulin Detemir 20 units 06/30/18 22:00 Levemir Vial SQ HS YISEL Losartan Potassium 100 mg 06/24/18 10:00 06/30/18 10:04 Cozaar - PO 100 mg DAILY YISEL Administration Melatonin 10 mg 06/24/18 22:00 06/26/18 22:24 Melatonin PO 10 mg HS PRN Administration INSOMNIA Metoprolol Succinate 50 mg 06/24/18 10:00 06/30/18 10:04 Toprol Xl - PO 50 mg DAILY YISEL Administration Mirtazapine 7.5 mg 06/24/18 22:00 06/29/18 21:27 Remeron - PO 7.5 mg HS YISEL Administration Polyethylene Glycol 17 gm 06/26/18 11:00 06/30/18 10:05 Miralax (For Daily Use) - PO 17 gm BID YISEL Administration Prednisone 40 mg 07/01/18 10:00 Deltasone - PO DAILY YISEL IMAGING: EKG: Normal sinus rhythm at 73 beats per minute. Left Rarden deviation, LVH noted. QTc 486. Chest Xray (admission): Interstitial opacities, due to poor inspiratory effort vs. pulmonary venous congestion. CT head: No acute infarct, intracranial pathology, or hemorrhage. Chest Xray (06/25): Left basilar opacification, blunting of left costophrenic angle questionable for pleural effusion. Chest Xray (06/26): No evidence of pneumonia or CHF. ASSESSMENT/PLAN: Patient is an 78 year old female with history of asthma, hypertension, hyperlipidemia, diabetes, coronary artery disease s/p 1 stent and aortic valve replacement presents with complaint of shortness of breath, and nonproductive cough for the past week. Severe, Persistent Asthma exacerbation -Improving. Patient admits improvement with breathing, and improved inspiratory effort noted upon exam. -Duonebs Q6H PRN -Prednisone 40mg PO cam -Guaifenesin AC 10mL PO TID PRN for cough Possible pneumonia -Improving. WBC 9.3 -Pulmonology consult (Dr. Potter) appreciated: Ceftriaxone 1gm IV daily (day 4) -Urine for strep pneumonia, legionella negative. CHF -Continue Metoprolol XL 50mg PO daily -ECHO shows: LV normal in size, minld concentric LVH, systolic function normal. Trace MR. Trace TR. 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 DM -ISS Q4H -BGM Q4H -Levemir 25mg SQ in AM, 20mg SQ HS HTN -Hypertensive emergency in ED with BP 242/78 and pulmonary edema. -Amlodipine home dose 2.5mg increased to 5mg. Increased to 5mg BID -Continue Metoprolol XL 50mg PO daily -Continue Losartan 100mg PO daily -Will follow BP closely HLD -Continue Atorvastatin 40mg PO HS CAD -Continue Aspirin 81mg PO daily Alzheimer dementia -Donepezil 5mg PO daily Anxiety -Mirtazapine 7.5mg PO HS Insomnia -Melatonin 10mg PO PRN Constipation -Miralax 17gm PO BID FEN -No IV fluids. Patient tolerates oral intake. Encourage judicious oral hydration. -Will follow CMP -Diabetic, salt controlled diet Prophylaxis -Lovenox 40mg SQ daily Disposition -Continue care in medical-surgical floor Visit type - Emergency Visit Emergency Visit: Yes ED Registration Date: 06/24/18 Care time: The patient presented to the Emergency Department on the above date and was hospitalized for further evaluation of their emergent condition. - New Patient This patient is new to me today: No - Critical Care Critical Care patient: No - Discharge Referral Referred to [facility] No
--- NOTE | 2018-06-30 19:24 | PN ---
Teaching Attending Note Name of Resident: Patrick Maya ATTENDING PHYSICIAN STATEMENT I saw and evaluated the patient. I reviewed the resident's note and discussed the case with the resident. I agree with the resident's findings and plan as documented. SUBJECTIVE: Patient is feeling better, with no acute distress. cough is better. OBJECTIVE: Vital Signs Temperature 98.5 F 06/30/18 16:50 Pulse Rate 66 06/30/18 16:50 Respiratory Rate 18 06/30/18 16:50 Blood Pressure 159/74 06/30/18 16:50 O2 Sat by Pulse Oximetry (%) 94 L 06/30/18 09:00 GENERAL: The patient is awake, alert, oriented x3 ,resting comfortably in bed, no acute distress. HEAD: Normal with no signs of trauma. EYES: PERRL, EOMI , sclera anicteric. ENT: Oropharynx clear without exudates, moist mucous membranes. NECK: Supple without lymphadenopathy or thyromegaly. LUNGS: decreased air entry BL. positive for wheezing BL, No accessory muscle use. HEART: Regular rate and rhythm, S1, S2 positive , no rub or gallop. ABDOMEN: Soft, obese. Nontender to palpation. Normoactive bowel sounds, no guarding, no rebound. EXTREMITIES: 2+ pulses b/l. Warm. NEUROLOGICAL: Cranial nerves II through XII grossly intact. Normal speech. PSYCH: Mood and affect appropriate upon my encounter today. SKIN: Warm, dry, normal turgor, no rashes or lesions noted CBCD WBC 9.3 K/mm3 (4.0-10.0) 06/30/18 06:00 RBC 5.15 M/mm3 (3.60-5.2) 06/30/18 06:00 Hgb 10.8 GM/dL (10.7-15.3) 06/30/18 06:00 Hct 33.1 % (32.4-45.2) 06/30/18 06:00 MCV 64.3 fl (80-96) L 06/30/18 06:00 MCHC 32.5 g/dl (32.0-36.0) 06/30/18 06:00 RDW 16.7 % (11.6-15.6) H 06/30/18 06:00 Plt Count 381 K/MM3 (134-434) 06/30/18 06:00 MPV 8.5 fl (7.5-11.1) 06/30/18 06:00 CMP Sodium 137 mmol/L (136-145) 06/30/18 06:00 Potassium 5.0 mmol/L (3.5-5.1) 06/30/18 06:00 Chloride 102 mmol/L (98-107) 06/30/18 06:00 Carbon Dioxide 29 mmol/L (21-32) 06/30/18 06:00 Anion Gap 7 MMOL/L (8-16) L 06/30/18 06:00 BUN 34 mg/dL (7-18) H 06/30/18 06:00 Creatinine 1.0 mg/dL (0.55-1.3) 06/30/18 06:00 Creat Clearance w eGFR 53.35 (>60) 06/30/18 06:00 Random Glucose 235 mg/dL (74-106) H 06/30/18 06:00 Calcium 8.1 mg/dL (8.5-10.1) L 06/30/18 06:00 Total Bilirubin 0.4 mg/dL (0.2-1) 06/30/18 06:00 AST 15 U/L (15-37) 06/30/18 06:00 ALT 30 U/L (13-61) 06/30/18 06:00 Alkaline Phosphatase 74 U/L (45-117) 06/30/18 06:00 Total Protein 6.0 g/dl (6.4-8.2) L 06/30/18 06:00 Albumin 2.7 g/dl (3.4-5.0) L 06/30/18 06:00 CARDIAC ENZYMES Creatine Kinase 298 IU/L (26-192) H 06/23/18 20:03 Troponin I < 0.02 ng/ml (0.00-0.05) 06/24/18 06:20 Current Medications Generic Name Dose Route Start Last Admin Trade Name Freq PRN Reason Stop Dose Admin Albuterol/Ipratropium 1 amp 06/29/18 16:40 Duoneb - NEB Q6H PRN SHORTNESS OF BREATH Amlodipine Besylate 5 mg 06/27/18 22:00 06/30/18 10:05 Norvasc - PO 5 mg BID YISEL Administration Aspirin 81 mg 06/24/18 10:00 06/30/18 10:04 Asa - PO 81 mg DAILY YISEL Administration Atorvastatin Calcium 40 mg 06/24/18 22:00 06/29/18 21:28 Lipitor - PO 40 mg HS YISEL Administration Cholecalciferol 2,000 unit 06/24/18 10:00 06/30/18 10:04 Vitamin D3 - PO 2,000 unit DAILY YISEL Administration Donepezil HCl 5 mg 06/24/18 10:00 06/30/18 10:05 Aricept - PO 5 mg DAILY YISEL Administration Enoxaparin Sodium 40 mg 06/24/18 10:00 06/30/18 10:03 Lovenox - SQ 40 mg DAILY YISEL Administration Guaifenesin/Codeine Phosphate 10 ml 06/30/18 09:18 Robitussin Ac - PO TID PRN COUGH Ceftriaxone Sodium 1 gm/ 50 mls @ 100 mls/hr 06/25/18 17:30 06/30/18 09:59 Dextrose IVPB 100 mls/hr DAILY [facility] Administration Protocol Insulin Aspart 1 vial 06/25/18 14:30 06/30/18 17:40 Novolog Vial Sliding Scale - SQ 6 units Q4HWA [facility] Administration Protocol Insulin Detemir 25 units 06/30/18 09:17 Levemir Vial SQ AM YISEL Insulin Detemir 20 units 06/30/18 22:00 Levemir Vial SQ HS [facility] Losartan Potassium 100 mg 06/24/18 10:00 06/30/18 10:04 Cozaar - PO 100 mg DAILY YISEL Administration Melatonin 10 mg 06/24/18 22:00 06/26/18 22:24 Melatonin PO 10 mg HS PRN Administration INSOMNIA Metoprolol Succinate 50 mg 06/24/18 10:00 06/30/18 10:04 Toprol Xl - PO 50 mg DAILY [facility] Administration Mirtazapine 7.5 mg 06/24/18 22:00 06/29/18 21:27 Remeron - PO 7.5 mg HS [facility] Administration Polyethylene Glycol 17 gm 06/26/18 11:00 06/30/18 10:05 Miralax (For Daily Use) - PO 17 gm BID YISEL Administration Prednisone 40 mg 07/01/18 10:00 Deltasone - PO DAILY [facility] Home Medications Medication Instructions Recorded Amlodipine Besylate 2.5 mg PO DAILY 04/19/18 Aspirin [ASA -] 81 mg PO DAILY 04/19/18 Atorvastatin Ca [Lipitor] 40 mg PO DAILY 04/19/18 Donepezil HCl [Aricept] 5 mg PO DAILY 04/19/18 Cholecalciferol (Vitamin D3) 2,000 unit PO DAILY 06/24/18 [Vitamin D3] Losartan Potassium 100 mg PO DAILY 06/24/18 Melatonin 10 mg PO PRN 06/24/18 Metoprolol Succinate 50 mg PO DAILY 06/24/18 Mirtazapine 7.5 mg PO DAILY 06/24/18 [place]-3/Dha/Epa/Fish Oil [Fish Oil 06/24/18 [place]-3 EC 1,200 mg] Sitagliptin Phos/Metformin HCl 50 mg PO BID 06/24/18 [Janumet Xr 50-500 mg Tablet] Microbiology 06/23/18 19:54 Blood - Peripheral Venous Blood Culture - Final NO GROWTH AFTER 5 DAYS INCUBATION 06/23/18 19:54 Blood - Peripheral Venous Blood Culture - Final NO GROWTH AFTER 5 DAYS INCUBATION 06/26/18 02:05 Urine For Antigen Detection Legionella Antigen - Final 06/26/18 02:05 Urine For Antigen Detection Streptococcus pneumoniae Antigen (M - Final 06/24/18 21:55 Urine - Urine Clean Catch Urine Culture - Final Contaminated: Please Repeat 06/24/18 21:55 Nasopharyngeal Swab Influenza Types A,B Antigen - Final 06/24/18 21:55 Nasopharyngeal Swab - Final ASSESSMENT AND PLAN: Patient is a 78yo female with PMHx of Asthma, HTN, CAD, CABG, OA, HLP, DM who presented with SOB and was found to have severe HTN. # HTN emergency , blood pressure is better now, continue Losartan, BB, Norvasc , will continue to monitor. ECHO reviewed, vitals q4h #Acute exacerbation of asthma on IV solumedrol 40mg changed to po prednisone. Increased robitussin ac to 10cc tid, continue neb treatments,advair, Pulmonary consult . # DM : will increase Levemir 25in am and 20u in pm while patient is on steroids , SSI , will continue to monitor the Blood sugar. DVT Px: Lovenox possible discharge in am if stable
[2018-06-30] MEDS: ATORVASTATIN CA 40 MG TABLET (FP) PO SCH (21:06)
[2018-06-30] MEDS: MIRTAZAPINE 15 MG TABLET (FP) PO SCH (21:06)
[2018-07-01] MEDS: INSULIN SLIDING SCALE (NOVOLOG) 1 VIAL SQ SCH ×2 (06:27→10:50)
[2018-07-01 07:09] LABS: HEMATOCRIT 35.1 % (32.4-45.2); HEMOGLOBIN 11.1 GM/dL (10.7-15.3); MCH 20.7 pg (25.7-33.7); MCHC 31.8 g/dl (32.0-36.0); MEAN CELL VOLUME 65.2 fl (80-96); MEAN PLT VOLUME 8.5 fl (7.5-11.1); PLATELET COUNT 358 K/MM3 (134-434); RBC 5.38 M/mm3 (3.60-5.2); RDW 16.8 % (11.6-15.6); WHITE BLOOD COUNT 11.7 K/mm3 (4.0-10.0)
--- NOTE | 2018-07-01 08:11 | PN ---
Teaching Attending Note Name of Resident: Patrick Maya ATTENDING PHYSICIAN STATEMENT I saw and evaluated the patient. I reviewed the resident's note and discussed the case with the resident. I agree with the resident's findings and plan as documented. SUBJECTIVE: Patient is feeling better with no acute distress. Patient is comfortable. OBJECTIVE: Vital Signs Temperature 97.8 F 07/01/18 06:00 Pulse Rate 60 07/01/18 06:00 Respiratory Rate 20 07/01/18 06:00 Blood Pressure 158/78 07/01/18 06:00 O2 Sat by Pulse Oximetry (%) 97 06/30/18 20:22 GENERAL: The patient is awake, alert, oriented x3 ,resting comfortably in bed, no acute distress. HEAD: Normal with no signs of trauma. EYES: PERRL, EOMI , sclera anicteric. ENT: Oropharynx clear without exudates, moist mucous membranes. NECK: Supple without lymphadenopathy or thyromegaly. LUNGS: better air entery bL today. No wheezing today , No accessory muscle use. HEART: Regular rate and rhythm, S1, S2 positive , no rub or gallop. ABDOMEN: Soft, obese. Nontender to palpation. Normoactive bowel sounds, no guarding, no rebound. EXTREMITIES: 2+ pulses b/l. Warm. NEUROLOGICAL: Cranial nerves II through XII grossly intact. Normal speech. PSYCH: Mood and affect appropriate upon my encounter today. SKIN: Warm, dry, normal turgor, no rashes or lesions noted CBCD WBC 11.7 K/mm3 (4.0-10.0) H 07/01/18 06:00 RBC 5.38 M/mm3 (3.60-5.2) H 07/01/18 06:00 Hgb 11.1 GM/dL (10.7-15.3) 07/01/18 06:00 Hct 35.1 % (32.4-45.2) 07/01/18 06:00 MCV 65.2 fl (80-96) L 07/01/18 06:00 MCHC 31.8 g/dl (32.0-36.0) L 07/01/18 06:00 RDW 16.8 % (11.6-15.6) H 07/01/18 06:00 Plt Count 358 K/MM3 (134-434) 07/01/18 06:00 MPV 8.5 fl (7.5-11.1) 07/01/18 06:00 CMP Sodium 137 mmol/L (136-145) 06/30/18 06:00 Potassium 5.0 mmol/L (3.5-5.1) 06/30/18 06:00 Chloride 102 mmol/L (98-107) 06/30/18 06:00 Carbon Dioxide 29 mmol/L (21-32) 06/30/18 06:00 Anion Gap 7 MMOL/L (8-16) L 06/30/18 06:00 BUN 34 mg/dL (7-18) H 06/30/18 06:00 Creatinine 1.0 mg/dL (0.55-1.3) 06/30/18 06:00 Creat Clearance w eGFR 53.35 (>60) 06/30/18 06:00 Random Glucose 235 mg/dL (74-106) H 06/30/18 06:00 Calcium 8.1 mg/dL (8.5-10.1) L 06/30/18 06:00 Total Bilirubin 0.4 mg/dL (0.2-1) 06/30/18 06:00 AST 15 U/L (15-37) 06/30/18 06:00 ALT 30 U/L (13-61) 06/30/18 06:00 Alkaline Phosphatase 74 U/L (45-117) 06/30/18 06:00 Total Protein 6.0 g/dl (6.4-8.2) L 06/30/18 06:00 Albumin 2.7 g/dl (3.4-5.0) L 06/30/18 06:00 CARDIAC ENZYMES Creatine Kinase 298 IU/L (26-192) H 06/23/18 20:03 Troponin I < 0.02 ng/ml (0.00-0.05) 06/24/18 06:20 Current Medications Generic Name Dose Route Start Last Admin Trade Name Freq PRN Reason Stop Dose Admin Albuterol/Ipratropium 1 amp 06/29/18 16:40 07/01/18 08:06 Duoneb - NEB 1 amp Q6H PRN Administration SHORTNESS OF BREATH Amlodipine Besylate 5 mg 06/27/18 22:00 06/30/18 21:07 Norvasc - PO 5 mg BID YISEL Administration Aspirin 81 mg 06/24/18 10:00 06/30/18 10:04 Asa - PO 81 mg DAILY YISEL Administration Atorvastatin Calcium 40 mg 06/24/18 22:00 06/30/18 21:06 Lipitor - PO 40 mg HS YISEL Administration Cholecalciferol 2,000 unit 06/24/18 10:00 06/30/18 10:04 Vitamin D3 - PO 2,000 unit DAILY YISEL Administration Donepezil HCl 5 mg 06/24/18 10:00 06/30/18 10:05 Aricept - PO 5 mg DAILY YISEL Administration Enoxaparin Sodium 40 mg 06/24/18 10:00 06/30/18 10:03 Lovenox - SQ 40 mg DAILY YISEL Administration Guaifenesin/Codeine Phosphate 10 ml 06/30/18 09:18 Robitussin Ac - PO TID PRN COUGH Ceftriaxone Sodium 1 gm/ 50 mls @ 100 mls/hr 06/25/18 17:30 06/30/18 09:59 Dextrose IVPB 100 mls/hr DAILY YISEL Administration Protocol Insulin Aspart 1 vial 06/25/18 14:30 07/01/18 06:27 Novolog Vial Sliding Scale - SQ Not Given Q4HWA [facility] Protocol Insulin Detemir 25 units 06/30/18 09:17 07/01/18 06:38 Levemir Vial SQ 25 units AM YISEL Administration Insulin Detemir 20 units 06/30/18 22:00 06/30/18 21:07 Levemir Vial SQ 20 units HS YISEL Administration Losartan Potassium 100 mg 06/24/18 10:00 06/30/18 10:04 Cozaar - PO 100 mg DAILY YISEL Administration Melatonin 10 mg 06/24/18 22:00 06/26/18 22:24 Melatonin PO 10 mg HS PRN Administration INSOMNIA Metoprolol Succinate 50 mg 06/24/18 10:00 06/30/18 10:04 Toprol Xl - PO 50 mg DAILY YISEL Administration Mirtazapine 7.5 mg 06/24/18 22:00 06/30/18 21:06 Remeron - PO 7.5 mg HS YISEL Administration Polyethylene Glycol 17 gm 06/26/18 11:00 06/30/18 21:07 Miralax (For Daily Use) - PO Not Given BID YISEL Prednisone 40 mg 07/01/18 10:00 Deltasone - PO DAILY [facility] Home Medications Medication Instructions Recorded Amlodipine Besylate 2.5 mg PO DAILY 04/19/18 Aspirin [ASA -] 81 mg PO DAILY 04/19/18 Atorvastatin Ca [Lipitor] 40 mg PO DAILY 04/19/18 Donepezil HCl [Aricept] 5 mg PO DAILY 04/19/18 Cholecalciferol (Vitamin D3) 2,000 unit PO DAILY 06/24/18 [Vitamin D3] Losartan Potassium 100 mg PO DAILY 06/24/18 Melatonin 10 mg PO PRN 06/24/18 Metoprolol Succinate 50 mg PO DAILY 06/24/18 Mirtazapine 7.5 mg PO DAILY 06/24/18 [place]-3/Dha/Epa/Fish Oil [Fish Oil 06/24/18 [place]-3 EC 1,200 mg] Sitagliptin Phos/Metformin HCl 50 mg PO BID 06/24/18 [Janumet Xr 50-500 mg Tablet] [facility] Home Medications patient was send on Medication Instructions Recorded Aspirin [ASA -] 81 mg PO DAILY 04/19/18 Atorvastatin Ca [Lipitor] 40 mg PO DAILY 04/19/18 Donepezil HCl [Aricept] 5 mg PO DAILY 04/19/18 Cholecalciferol (Vitamin D3) 2,000 unit PO DAILY 06/24/18 [Vitamin D3] Losartan Potassium 100 mg PO DAILY 06/24/18 Melatonin 10 mg PO PRN 06/24/18 Metoprolol Succinate 50 mg PO DAILY 06/24/18 Mirtazapine 7.5 mg PO DAILY 06/24/18 [place]-3/Dha/Epa/Fish Oil [Fish Oil 06/24/18 [place]-3 EC 1,200 mg] Sitagliptin Phos/Metformin HCl 50 mg PO BID 06/24/18 [Janumet Xr 50-500 mg Tablet] Amlodipine Besylate [Norvasc -] 5 mg PO BID 30 Days #60 tablet 07/01/18 Cefuroxime Axetil [Ceftin -] 500 mg PO Q12H #6 tablet 07/01/18 predniSONE [Deltasone -] See Taper PO ASDIR 6 Days #12 tab 07/01/18 06/23/18 19:54 Blood - Peripheral Venous Blood Culture - Final NO GROWTH AFTER 5 DAYS INCUBATION 06/23/18 19:54 Blood - Peripheral Venous Blood Culture - Final NO GROWTH AFTER 5 DAYS INCUBATION 06/26/18 02:05 Urine For Antigen Detection Legionella Antigen - Final 06/26/18 02:05 Urine For Antigen Detection Streptococcus pneumoniae Antigen (M - Final 06/24/18 21:55 Urine - Urine Clean Catch Urine Culture - Final Contaminated: Please Repeat 06/24/18 21:55 Nasopharyngeal Swab Influenza Types A,B Antigen - Final 06/24/18 21:55 Nasopharyngeal Swab - Final ASSESSMENT AND PLAN: Patient is a 78yo female with PMHx of Asthma, HTN, CAD, CABG, OA, HLP, DM who presented with SOB and was found to have severe HTN. # HTN better improved now ,continue Losartan, BB, Norvasc. ECHO reviewed, vitals q4h #Acute exacerbation of asthma s/p IV solumedrol 40mg changed to po prednisone, will discharge her with tapered dose. continue neb treatments,advair, Pulmonary consult to follow as an outpatient. # DM : improved will ask the patient to continue taking her own medications. discharge patient home.
[2018-07-01 08:45] LABS: ALBUMIN 2.6 g/dl (3.4-5.0); ALK PHOS 70 U/L (45-117); ANION GAP 7 MMOL/L (8-16); BILIRUBIN,TOTAL 0.4 mg/dL (0.2-1); BLOOD UREA NITROGEN 33 mg/dL (7-18); CHLORIDE 102 mmol/L (98-107); CO2 29 mmol/L (21-32); CREATININE 0.9 mg/dL (0.55-1.3); GLUCOSE,RANDOM 83 mg/dL (74-106); MAGNESIUM 2.7 mg/dL (1.8-2.4); PHOSPHOROUS 4.4 mg/dL (2.5-4.9); POTASSIUM 4.3 mmol/L (3.5-5.1); SGOT/AST 12 U/L (15-37); SGPT/ALT 29 U/L (13-61); SODIUM 138 mmol/L (136-145); TOT PROT 5.6 g/dl (6.4-8.2)
[2018-07-01] MEDS ORDERED: cefTRIAXone SODIUM 1 GM VIAL ONE (09:30)
[2018-07-01] MEDS ORDERED: DEXTROSE 5%-WATER - 50 ML IVPB ONE (09:30)
[2018-07-01] MEDS: ASPIRIN 81 MG CHEWABLE TABLETS PO SCH (09:40)
[2018-07-01] MEDS: LOSARTAN POTASSIUM 50 MG TABLET (FP) PO SCH (09:40)
[2018-07-01] MEDS: ENOXAPARIN NA (PORCINE) 40 MG/0.4 ML DISP.SYRIN SQ SCH (09:40)
[2018-07-01] MEDS: CEFTRIAXONE 1 GM in DEXTROSE 5%-WATER - 50 ML IVPB SCH (09:40)
[2018-07-01] MEDS: CHOLECALCIFEROL (VITAMIN D3) 1,000 UNIT TABLET (FP) PO SCH (09:40)
[2018-07-01] MEDS: amLODIPine BESYLATE 5 MG TABLET (FP) PO SCH (09:40)
[2018-07-01] MEDS: DONEPEZIL HCL 5 MG TABLET (FP) PO SCH (09:41)
[2018-07-01] MEDS: POLYETHYLENE GLYCOL 3350 119 GM BTL PO SCH (09:41)
[2018-07-01 09:49] VITALS: BP 146/57; TEMP 97.9
[2018-07-01] MEDS ORDERED: INSULIN (NOVOLOG) ASPART 100 UNITS/ML 10ML VIAL ONE (09:57)
[2018-07-01] MEDS ORDERED: PT OWN MED DRAWER 7, Y5N ONE (09:58)
[2018-07-01] MEDS ORDERED: predniSONE 20 MG TABLET (UD) PO SCH (10:00)
--- NOTE | 2018-07-01 10:45 | EKG ---
Test Reason : Blood Pressure : / mmHG Vent. Rate : 068 BPM Atrial Rate : 068 BPM P-R Int : 166 ms QRS Dur : 094 ms QT Int : 424 ms P-R-T Axes : 064 -31 101 degrees QTc Int : 450 ms NORMAL SINUS RHYTHM LEFT AXIS DEVIATION VOLTAGE CRITERIA FOR LEFT VENTRICULAR HYPERTROPHY CANNOT RULE OUT SEPTAL INFARCT , AGE UNDETERMINED ABNORMAL ECG WHEN COMPARED WITH ECG OF 27-JUN-2018 09:52, NO SIGNIFICANT CHANGE WAS FOUND Confirmed by Asad Price MD ([id number]) on 07/01/2018 10:44:48 AM Referred By: ABBI MC DR Confirmed By:Asad Price MD
[2018-07-01 11:13] VITALS: PULSE 77
--- NOTE | 2018-07-01 11:46 | PN ---
Progress Note, Physician History of Present Illness: PULMONARY ALERT,NO DISTRESS,-SOB,-CP,-COUGH - Current Medication List Current Medications: Active Medications Albuterol/Ipratropium (Duoneb -) 1 amp NEB Q6H PRN PRN Reason: SHORTNESS OF BREATH Last Admin: 07/01/18 08:06 Dose: 1 amp Amlodipine Besylate (Norvasc -) 5 mg PO BID [facility] Last Admin: 07/01/18 09:40 Dose: 5 mg Aspirin (Asa -) 81 mg PO DAILY [facility] Last Admin: 07/01/18 09:40 Dose: 81 mg Atorvastatin Calcium (Lipitor -) 40 mg PO HS [facility] Last Admin: 06/30/18 21:06 Dose: 40 mg Cholecalciferol (Vitamin D3 -) 2,000 unit PO DAILY [facility] Last Admin: 07/01/18 09:40 Dose: 2,000 unit Donepezil HCl (Aricept -) 5 mg PO DAILY [facility] Last Admin: 07/01/18 09:41 Dose: 5 mg Enoxaparin Sodium (Lovenox -) 40 mg SQ DAILY [facility] Last Admin: 07/01/18 09:40 Dose: 40 mg Guaifenesin/Codeine Phosphate (Robitussin Ac -) 10 ml PO TID PRN PRN Reason: COUGH Ceftriaxone Sodium 1 gm/ (Dextrose) 50 mls @ 100 mls/hr IVPB DAILY [facility]; Protocol Last Admin: 07/01/18 09:40 Dose: 100 mls/hr Insulin Aspart (Novolog Vial Sliding Scale -) 1 vial SQ Q4HWA [facility]; Protocol Last Admin: 07/01/18 10:50 Dose: 6 units Insulin Detemir (Levemir Vial) 25 units SQ AM [facility] Last Admin: 07/01/18 06:38 Dose: 25 units Insulin Detemir (Levemir Vial) 20 units SQ HS [facility] Last Admin: 06/30/18 21:07 Dose: 20 units Losartan Potassium (Cozaar -) 100 mg PO DAILY [facility] Last Admin: 07/01/18 09:40 Dose: 100 mg Melatonin (Melatonin) 10 mg PO HS PRN PRN Reason: INSOMNIA Last Admin: 06/26/18 22:24 Dose: 10 mg Metoprolol Succinate (Toprol Xl -) 50 mg PO DAILY [facility] Last Admin: 07/01/18 09:40 Dose: 50 mg Mirtazapine (Remeron -) 7.5 mg PO HS [facility] Last Admin: 06/30/18 21:06 Dose: 7.5 mg Polyethylene Glycol (Miralax (For Daily Use) -) 17 gm PO BID [facility] Last Admin: 07/01/18 09:41 Dose: 17 gm Prednisone (Deltasone -) 40 mg PO DAILY [facility] Last Admin: 07/01/18 09:40 Dose: 40 mg - Objective Vital Signs: Vital Signs Temperature 97.9 F 07/01/18 09:48 Pulse Rate 77 07/01/18 10:35 Respiratory Rate 20 07/01/18 09:48 Blood Pressure 146/57 L 07/01/18 09:48 O2 Sat by Pulse Oximetry (%) 98 07/01/18 10:35 Constitutional: Yes: Well Nourished, Calm Eyes: Yes: WNL HENT: Yes: WNL Neck: Yes: WNL Cardiovascular: Yes: Regular Rate and Rhythm, S1, S2 Respiratory: Yes: Wheezes (FEW WHEEZES) Gastrointestinal: Yes: Normal Bowel Sounds, Soft Extremities: Yes: WNL Edema: No Labs: CBC, BMP 07/01/18 06:00 07/01/18 06:00 Problem List - Problems (1) S/P AVR (aortic valve replacement) Code(s): Z95.2 - PRESENCE OF PROSTHETIC HEART VALVE (2) Acute respiratory distress Code(s): R06.03 - ACUTE RESPIRATORY DISTRESS (3) CHF exacerbation Code(s): I50.9 - HEART FAILURE, UNSPECIFIED Qualifiers: Heart failure type: unspecified Qualified Code(s): I50.9 - Heart failure, unspecified (4) Hypertensive urgency Code(s): I16.0 - HYPERTENSIVE URGENCY (5) Pneumonia Code(s): J18.9 - PNEUMONIA, UNSPECIFIED ORGANISM (6) Diabetes Code(s): E11.9 - TYPE 2 DIABETES MELLITUS WITHOUT COMPLICATIONS Assessment/Plan IMP ASTHMA EXACERBATION improving HYPERTENSIVE URGENCY resolved ACUTE PULMONARY EDEMA LIKELY SECONDARY TO HTN DIASTOLIC HF S/P AVR LLL OPACITY R/O PNEUMONIA DM PLAN STEROID taper INHALED BRONCHODILATORS ABX BP MEDS STRICT I+OS DR MA Problem List - Problems (1) S/P AVR (aortic valve replacement) Code(s): Z95.2 - PRESENCE OF PROSTHETIC HEART VALVE (2) Acute respiratory distress Code(s): R06.03 - ACUTE RESPIRATORY DISTRESS (3) CHF exacerbation Code(s): I50.9 - HEART FAILURE, UNSPECIFIED Qualifiers: Heart failure type: unspecified Qualified Code(s): I50.9 - Heart failure, unspecified (4) Hypertensive urgency Code(s): I16.0 - HYPERTENSIVE URGENCY (5) Pneumonia Code(s): J18.9 - PNEUMONIA, UNSPECIFIED ORGANISM (6) Diabetes Code(s): E11.9 - TYPE 2 DIABETES MELLITUS WITHOUT COMPLICATIONS
--- NOTE | 2018-07-01 14:41 | DS ---
Physical Exam: SUBJECTIVE: Patient seen and examined at bedside this morning. Admits improvement with breathing and diminishing cough. Denies fevers, chills, palpitations, abdominal pain, nausea, vomiting, diarrhea, constipation. OBJECTIVE: Vital Signs Period Temp Pulse Resp BP Sys/[place] Pulse Ox Last 24 Hr 97.6 F-98.5 F 60-77 18-20 146-192/57-79 95-98 PHYSICAL EXAM GENERAL: The patient is awake, alert, and fully oriented, resting comfortably in bed, no acute distress. HEAD: Normal with no signs of trauma. EYES: PERRLA, extraocular movements intact, sclera anicteric, conjunctiva noninjected b/l. ENT: Oropharynx clear without exudates, moist mucous membranes. NECK: Supple without lymphadenopathy or thyromegaly. LUNGS: Improving inspiratory effort, and air entery b/l. Faint wheezing and crackles auscultated in b/l lower lobes. No accessory muscle use. HEART: Regular rate and rhythm, S1, S2 without murmur, rub or gallop. ABDOMEN: Soft, obese. Nontender to palpation. Normoactive bowel sounds, no guarding, no rebound, no hepatosplenomegaly. EXTREMITIES: 2+ radial and dorsalis pedis pulses b/l. Warm. NEUROLOGICAL: Cranial nerves II through XII grossly intact. Normal speech. Strength 5/5 b/l upper and lower extremities. No gross focal deficits. PSYCH: Mood and affect appropriate upon my encounter today. SKIN: Warm, dry, normal turgor, no rashes or lesions noted LABS Laboratory Results - last 24 hr 06/30/18 06/30/18 06/30/18 14:48 17:16 21:04 WBC RBC Hgb Hct MCV MCH MCHC RDW Plt Count MPV Sodium Potassium Chloride Carbon Dioxide Anion Gap BUN Creatinine Creat Clearance w eGFR POC Glucometer 345 285 322 Random Glucose Calcium Phosphorus Magnesium Total Bilirubin AST ALT Alkaline Phosphatase Total Protein Albumin 07/01/18 07/01/18 07/01/18 05:25 06:00 06:00 WBC 11.7 H RBC 5.38 H Hgb 11.1 Hct 35.1 MCV 65.2 L MCH 20.7 L MCHC 31.8 L RDW 16.8 H Plt Count 358 MPV 8.5 Sodium 138 Potassium 4.3 Chloride 102 Carbon Dioxide 29 Anion Gap 7 L BUN 33 H Creatinine 0.9 Creat Clearance w eGFR > 60 POC Glucometer 102 Random Glucose 83 Calcium 8.0 L Phosphorus 4.4 Magnesium 2.7 H Total Bilirubin 0.4 AST 12 L ALT 29 Alkaline Phosphatase 70 Total Protein 5.6 L Albumin 2.6 L 07/01/18 10:49 WBC RBC Hgb Hct MCV MCH MCHC RDW Plt Count MPV Sodium Potassium Chloride Carbon Dioxide Anion Gap BUN Creatinine Creat Clearance w eGFR POC Glucometer 251 Random Glucose Calcium Phosphorus Magnesium Total Bilirubin AST ALT Alkaline Phosphatase Total Protein Albumin HOSPITAL COURSE: Date of Admission:06/24/18 Date of Discharge: 07/01/18 Patient is an 78 year old female with history of asthma, hypertension, hyperlipidemia, diabetes, coronary artery disease s/p 1 stent and aortic valve replacement presents with complaint of shortness of breath, and nonproductive cough for the past week. Admitted for exacerbation of severe persistent asthma, and pneumonia. Chest Xray upon admission showed interstitial opacities, due to poor inspiratory effort vs. pulmonary venous congestion. She was treated with duonebs and solumedrol, and guaifenesin AC. Ceftriaxone for the pneumonia. She was switched to oral steroids and discharged on prednisone taper. Upon admission her BP was 242/78 with flash pulmonary edema. She was treated with Lasix, continuing Metoprolol, Losartan, and Amlodipine increased to 5mg BID. Respiration improved with diminishing wheezes and cough. Patient discharged with prednisone taper, ceftin 500mg q12H for three days, and to follow up with primary care physician within one week. Minutes to complete discharge: 45 Discharge Summary Reason For Visit: ACUTE ON CHRONIC CONGESTIVE HEART FAILURE Condition: Improved - Instructions Diet, Activity, Other Instructions: You were admitted with shortness of breath, and cough. Your chest Xray showed pneumonia, and you were treated with intravenous antibiotics. Your breathing symptoms were treated with intravenous antibiotic, nebulizer and steroids. You will continue taking antibiotic by mouth: Ceftin 500mg twice a day You will continue the steroid taper for the next 6 days. Your blood pressure was elevated upon admission (242/78). We therefore increased your Amlodipine to 5mg twice a day. It is important that you check your blood pressure daily at home, and record the findings. You will follow up with your primary care doctor within one week of discharge to discuss the blood pressure, and changes to the medication. Also follow with a (lung doctor) metal treater as an out patient Continue taking your home medication as directed. Resume your sugar medication at home and follow up with your primary doctor to have blood pressure and blood sugar checks Take the new dose of Amlodipine 5mg twice a day. You will finish your steroid course by taking 30mg on 07/02, and 07/03, 20mg on 07/04, 07/05, and 10mg on 07/06, 07/07. Please return to the nearest emergency department if you experience chest pain, palpitations, shortness of breath, worsening cough, lightheadedness, or any falls. Disposition: HOME - Home Medications Comprehensive Discharge Medication List: Ambulatory Orders Aspirin [ASA -] 81 mg PO DAILY 04/19/18 Atorvastatin Ca [Lipitor] 40 mg PO DAILY 04/19/18 Donepezil HCl [Aricept] 5 mg PO DAILY 04/19/18 Cholecalciferol (Vitamin D3) [Vitamin D3] 2,000 unit PO DAILY 06/24/18 Losartan Potassium 100 mg PO DAILY 06/24/18 Melatonin 10 mg PO PRN 06/24/18 Metoprolol Succinate 50 mg PO DAILY 06/24/18 Mirtazapine 7.5 mg PO DAILY 06/24/18 [place]-3/Dha/Epa/Fish Oil [Fish Oil [place]-3 EC 1,200 mg] 06/24/18 Sitagliptin Phos/Metformin HCl [Janumet Xr 50-500 mg Tablet] 50 mg PO BID Amlodipine Besylate [Norvasc -] 5 mg PO BID 30 Days #60 tablet 07/01/18 Cefuroxime Axetil [Ceftin -] 500 mg PO Q12H #6 tablet 07/01/18 predniSONE [Deltasone -] See Taper PO ASDIR 6 Days #12 tab 07/01/18 This patient is new to me today: No Emergency Visit: Yes ED Registration Date: 06/24/18 Care time: The patient presented to the Emergency Department on the above date and was hospitalized for further evaluation of their emergent condition. Critical Care patient: No - Discharge Referral Referred to [facility] No
== END 2018-07-01 14:17 | disposition home health service (06) | DRG 291 ==
LOC: JER 19:24 → JERBED 21:22 → OBSVTOIN 06-24 01:39 → J4S 06-24 15:39
PROVIDERS: ADMIT Internal Medicine; ATTEND Internal Medicine
DX: I11.0 Hypertensive heart disease with heart failure (principal); J18.9 Pneumonia, unspecified organism; J81.0 Acute pulmonary edema; J45.51 Severe persistent asthma with (acute) exacerbation; I16.1 Hypertensive emergency; E11.9 Type 2 diabetes mellitus without complications; I25.10 Atherosclerotic heart disease of native coronary artery without angina pectoris; Z95.1 Presence of aortocoronary bypass graft; G30.9 Alzheimer's disease, unspecified; F02.80 Dementia in other diseases classified elsewhere, unspecified severity, without behavioral disturbance, psychotic disturbance, mood disturbance, and anxiety; F41.9 Anxiety disorder, unspecified; K59.00 Constipation, unspecified; G47.00 Insomnia, unspecified; E78.5 Hyperlipidemia, unspecified; I50.31 Acute diastolic (congestive) heart failure
CPT/HCPCS: 36415; 70450-TC; 71045-TC-FY; 80053; 81003; 81015; 82550; 82553; 82947; 82962; 83036; 83735; 83880; 84100; 84484; 85025; 85027; 87040; 87086; 87804; 87899; 93005; 93010; 93306-TC; 94640; 94761; 97116-GP; 97161-GP; 99285-25; G0378; J7620

== ENCOUNTER 2019-09-12 16:57 | Inpatient (IN) | payer OTHER ==
[2019-09-12] MEDS ORDERED: ALBUTEROL SO4 2.5/IPRATROPIUM 0.5 INH SOL 3 ML VIAL.NEB. NEB ONE ×4 (17:10→19:43)
[2019-09-12] MEDS ORDERED: DEXAMETHASONE SOD PHOSPHATE 10 MG/1 ML VIAL ONE (17:19)
[2019-09-12 17:36] LABS: BASO % 0.2 % (0-2.0); EOS % 1.7 % (0-4.5); HEMATOCRIT 35.5 % (32.4-45.2); HEMOGLOBIN 11.1 GM/dL (10.7-15.3); LYMPH % 18.3 % (8-40); MCH 21.1 pg (25.7-33.7); MCHC 31.2 g/dl (32.0-36.0); MEAN CELL VOLUME 67.5 fl (80-96); MEAN PLT VOLUME 8.9 fl (7.5-11.1); MONO % 4.6 % (3.8-10.2); NEUT % 75.2 % (42.8-82.8); PLATELET COUNT 282 K/MM3 (134-434); RBC 5.25 M/mm3 (3.60-5.2); RDW 17.6 % (11.6-15.6); WHITE BLOOD COUNT 9.2 K/mm3 (4.0-10.0)
--- NOTE | 2019-09-12 17:46 | PDOC ---
History of Present Illness - General Chief Complaint: Shortness of Breath Stated Complaint: ASTHMA History Source: Patient Exam Limitations: No Limitations - History of Present Illness Initial Comments: 09/12/19 17:38 79 yo female pmh asthma, hypertension, hyperlipidemia, diabetes, coronary artery disease s/p 1 stent and aortic valve replacement (2014, on ASA) presents to the ED with 2 days of worsening SOB. Pt states she had a dry cough that began yesterday with increasing difficulty breathing, does not has rescue inhaler at home. On further questioning, pt states over the last 2 weeks she has noted worsening SOB on ambulation and waking up at night with SOB. Denies hx of intubation, CHF, hx of lasix or water pill use, F/C/N/V, recent travel, sick contacts, CP, back pain, abdominal pain, changes in bowel or bladder habits. Past History - Past Medical History Allergies/Adverse Reactions: Allergies Allergy/AdvReac Type Severity Reaction Status Date / Time No Known Allergies Allergy Verified 09/12/19 17:04 Home Medications: Ambulatory Orders Aspirin [ASA -] 81 mg PO DAILY 04/19/18 Atorvastatin Ca [Lipitor] 40 mg PO DAILY 04/19/18 Donepezil HCl [Aricept] 5 mg PO DAILY 04/19/18 Cholecalciferol (Vitamin D3) [Vitamin D3] 2,000 unit PO DAILY 06/24/18 Losartan Potassium 100 mg PO DAILY 06/24/18 Melatonin 10 mg PO PRN 06/24/18 Metoprolol Succinate 50 mg PO DAILY 06/24/18 Mirtazapine 7.5 mg PO DAILY 06/24/18 [place]-3/Dha/Epa/Fish Oil [Fish Oil [place]-3 EC 1,200 mg] 06/24/18 Sitagliptin Phos/Metformin HCl [Janumet Xr 50-500 mg Tablet] 50 mg PO BID Amlodipine Besylate [Norvasc -] 5 mg PO BID 30 Days #60 tablet 07/01/18 Cefuroxime Axetil [Ceftin -] 500 mg PO Q12H #6 tablet 07/01/18 predniSONE [Deltasone -] See Taper PO ASDIR 6 Days #12 tab 07/01/18 Anemia: Yes Asthma: Yes Cancer: No Cardiac Disorders: Yes (aortic valve replacement) CVA: No COPD: No CHF: No DVT: No Dementia: No Diabetes: Yes (IDDM) GI Disorders: Yes (GERD) Disorders: No HTN: Yes Hypercholesterolemia: Yes Liver Disease: No Seizures: No Thyroid Disease: No - Surgical History Abdominal Surgery: No Appendectomy: No Cardiac Surgery: Yes (aortic valve replacement) Cholecystectomy: Yes GI Surgery: Yes (cholecystectomy) Lung Surgery: No Neurologic Surgery: No Orthopedic Surgery: Yes (shoulder sx) - Immunization History Immunization Up to Date: No - Psycho Social/Smoking Cessation Hx Smoking History: Unknown if ever smoked Have you smoked in the past 12 months: No Cigars Per Day: 0 Hx Alcohol Use: No Drug/Substance Use Hx: No Substance Use Type: None Hx Substance Use Treatment: No *Physical Exam - Vital Signs Last Vital Signs Temp Pulse Resp BP Pulse Ox 98.2 F 94 H 28 H 193/53 H 100 09/12/19 17:00 09/12/19 17:00 09/12/19 17:00 09/12/19 17:00 09/12/19 17:00 ED Treatment Course - LABORATORY CBC & Chemistry Diagram: 09/12/19 17:20 09/12/19 17:20 - RADIOLOGY Radiology Studies Ordered: Category Date Time Status CHEST X-RAY PORTABLE* [RAD] Stat Radiology 09/12/19 17:11 Ordered - Medications Given in the ED: ED Medications Discontinued Medications Generic Name Dose Route Start Last Admin Trade Name Freq PRN Reason Stop Dose Admin Albuterol/Ipratropium 1 amp 09/12/19 17:10 09/12/19 17:10 Duoneb - NEB 09/12/19 17:11 1 amp ONCE ONE Administration Medical Decision Making - Medical Decision Making 09/12/19 17:50 79 yo female pmh asthma, hypertension, hyperlipidemia, diabetes, coronary artery disease s/p 1 stent and aortic valve replacement (2014, on ASA) presents to the ED with 2 days of worsening SOB. Pt states she had a dry cough that began yesterday with increasing difficulty breathing, does not has rescue inhaler at home. On further questioning, pt states over the last 2 weeks she has noted worsening SOB on ambulation and waking up at night with SOB. Denies hx of intubation, CHF, hx of lasix or water pill use, F/C/N/V, recent travel, sick contacts, CP, back pain, abdominal pain, changes in bowel or bladder habits. Vitals show elevated RR 28 and BP 190s systolic ABG label unable to print, called lab, [facility] can send with pt White label EMS gave 2 Duoneb and 10 mg decadron Pt reports some improvement in breathing on exam pt continues has retractions and wheezing bilaterally with bedside US showing bilateral B lines Bipap placed, pt reports improvement of breathing however, BP consistently elevated Lasix 20 mg IV given (lasix naive) and 1 inch nitro paste for elevated BP ICU vs tele. BP response to nitro paste vs drip to determine dispo Discharge - Discharge Information Problems reviewed: Yes Clinical Impression/Diagnosis: CHF exacerbation, Hypertensive urgency, Acute respiratory distress - Admission Yes - Follow up/Referral - Patient Discharge Instructions - Post Discharge Activity
[2019-09-12] MEDS ORDERED: MAGNESIUM SULF 50% (8.12 MEQ/2 ML-1 GM VIAL) IVPB ONE (17:47)
[2019-09-12 17:56] LABS: ARTERIAL BLD GAS O2 SATURATION 98.2 % (95-98); ARTERIAL BLOOD GAS BASE EXCESS 2.6 meq/l (-2-2); ARTERIAL BLOOD GAS PCO2 37.7 mmHg (35-45); ARTERIAL BLOOD GAS PO2 118 mmHg (80-100); ARTERIAL BLOOD GAS pH 7.45 (7.35-7.45)
[2019-09-12 17:58] LABS: ALLENS TEST POSITIVE
[2019-09-12] MEDS ORDERED: MAGNESIUM 1GM/D5W - 1 GM/100 ML IVPB IVPB ONE ×2 (18:20→18:53)
[2019-09-12 18:22] LABS: ALBUMIN 3.5 g/dl (3.4-5.0); BILIRUBIN,TOTAL 0.2 mg/dL (0.2-1); CALCIUM 8.5 mg/dL (8.5-10.1); CREATININE 1.1 mg/dL (0.55-1.3); MAGNESIUM 2.5 mg/dL (1.8-2.4); N-TERMINAL BNP 1549.5 pg/ml (5-450); POTASSIUM 3.8 mmol/L (3.5-5.1); TOT PROT 6.9 g/dl (6.4-8.2)
[2019-09-12] MEDS ORDERED: FUROSEMIDE 40 MG/4 ML INJECTABLE VIAL IVPUSH ONE ×2 (18:52→22:22)
[2019-09-12] MEDS ORDERED: NITROGLYCERIN 2% OINTMENT - 1GM PACKET TD ONE ×2 (19:21→19:46)
--- NOTE | 2019-09-12 19:28 | PDOC ---
Documentation entered by Mc Wheatley SCRIBE, acting as scribe for Shalya Prakash MD. Shayla Prakash MD: This documentation has been prepared by the Dioni rivas Xhesika, SCRIBE, under my direction and personally reviewed by me in its entirety. I confirm that the documentation accurately reflects all work, treatment, procedures, and medical decision making performed by me. Attending Attestation - Resident Resident Name: Bossman Osborne - ED Attending Attestation I have performed the following: I have examined & evaluated the patient, The case was reviewed & discussed with the resident, I agree w/resident's findings & plan, Exceptions are as noted - HPI HPI: 09/12/19 18:44 The patient is an 79 year old female with a significant PMH of asthma, hypertension, hyperlipidemia, diabetes, coronary artery disease s/p 1 stent and aortic valve replacement (2014, on ASA) who presents to the emergency department for several weeks of SOB, worsening the past 2 days. Pt notes her shortness of breath wakes her up at night and she is not able to walk more than a block or 2. Pt notes she does not have an albuterol inhaler that she uses. Pt notes she was never hospitalized or intubated for asthma exacerbation. Daughter does report a similar episode of SOB last year for which she was given medication to "get the fluid off." The patient denies chest pain, headache, focal weakness/numbness and dizziness. Denies fever, chills,, nausea, vomiting, diarrhea and constipation. Denies dysuria, frequency, urgency and hematuria. Allergies: NKDA Past surgical history: cholecystectomy and aortic valve replacement Social history: Nonsmoker. Denies ETOH use and recreational drug use. Primary Care Physician: Dr. Ayan Kessler - Physicial Exam PE: 09/12/19 18:46 GENERAL: Awake, alert, and fully oriented, in mild Resp distress EYES: PERRLA, EOMI, sclera anicteric, conjunctiva clear ENT: Nares patent, oropharynx clear without exudates. Moist mucosa NECK: Normal ROM, supple, no lymphadenopathy, JVD, or masses LUNGS: B/l rales with diffuse mild wheezing, moderate air movement HEART: Regular rate and rhythm, normal S1 and S2, no murmurs, rubs or gallops ABDOMEN: Soft, nontender, normoactive bowel sounds. No guarding, no rebound. No masses EXTREMITIES: Normal range of motion, 1+ LE symmetric edema to the knees. No cords, erythema, or tenderness BACK: No midline spinal tenderness in cervical/thoracic/lumbar region NEUROLOGICAL: Normal speech, cranial nerves intact, equal strength and sesnation b/l SKIN: Warm, Dry, normal turgor, no rashes or lesions noted. - Medical Decision Making 09/12/19 19:21 79-year-old female with a history of asthma, previous admission for acute pulmonary edema presents the emergency department in acute respiratory distress. Exam/CXR consistent with acute pulmonary edema as well as possible asthma exacerbation. Patient placed on BiPAP initially, also given nebs, Decadron, and magnesium. Will give Lasix 20 mg IV for diuresis (not on diuretics as outpt ), low threshold for nitro. She has no productive cough, fever, or leukocytosis to suggest an infectious process, thus will hold off on abx at this time. PT feeling significantly better on bipap, titrated up to 14/7. Will consider addition of nitro paste vs gtt if her BP continues to be elevated. Pt signed out to Dr. Cotter for further mgmt, admission ANticipate admission to tele vs ICU Heart Score/ECG Review #1 09/12/19 19:26 Twelve-lead EKG was performed and reviewed by me. Normal sinus rhythm, rate 88. Normal axis. Wavy baseline but no ST elevation. T wave inversions in 1 and aVL.When compared to previous EKG, no significant change.
[2019-09-12] MEDS ORDERED: FUROSEMIDE 40 MG/4 ML INJECTABLE VIAL ONE (19:47)
[2019-09-12] MEDS ORDERED: NITROGLYCERIN 25MG/D5W 250ML 25 MG/250 ML ML IVPB SCH ×2 (20:15→22:41)
[2019-09-12 20:18] LABS: ANISOCYTOSIS 1+; PLATELET ESTIMATE NORMAL
--- NOTE | 2019-09-12 21:27 | HP ---
CHIEF COMPLAINT: shortness of breath PCP: [facility] Pulmonology: [place] Cardiology: [facility] HISTORY OF PRESENT ILLNESS: Ms. Herrera is an 79y/o female with severe asthma, HTN, HLD, DM, CAD s/p 1 stent, and aortic valve replacement (2014) who presents with progressive shortness of breath. She is normally able to walk about 10ft per daughter before being dyspneic. In the last 1-2 weeks, the pt reports it has gotten worse to where she walks about half of that before being dyspneic. Her neighbor had to help her to her door several days ago. She also developed a dry cough over the last week as well as intermittent dizziness. She reports an asthma attack this afternoon and did not get relief with albuterol inhaler, so she called her daughter, and then EMS was called. She takes daily maintenance inhalers. No history of intubation for asthma. Pt also reports 1 week of dysuria with 1 day of hematuria and nausea. She denies chills, fever, abdominal pain, vomiting, or diarrhea. Pt was found to be hypertensive at presentation. She reports medication compliance. Her last cardiology visit was a year ago. Daughter, Marleni, is at bedside for the interview. ER course was notable for: (1) duo-nebs, Mg, decadron, lasix IV, nitro drip (2) BiPAP (3) BNP 1549 (1381 ) PAST MEDICAL HISTORY: severe asthma, HTN, HLD, DM, CAD s/p 1 stent, and aortic valve replacement (2014 ) PAST SURGICAL HISTORY: cholecystectomy aortic valve repair shoulder repair Social History: Smoking: denies ever using Alcohol: denies Drugs: denies Lives in an apartment alone. Allergies No Known Allergies Allergy (Verified 09/12/19 17:04) HOME MEDICATIONS: Home Medications Medication Instructions Recorded Aspirin [ASA -] 81 mg PO DAILY 04/19/18 Atorvastatin Ca [Lipitor] 40 mg PO DAILY 04/19/18 Donepezil HCl [Aricept] 5 mg PO DAILY 04/19/18 Cholecalciferol (Vitamin D3) 2,000 unit PO DAILY 06/24/18 [Vitamin D3] Losartan Potassium 100 mg PO DAILY 06/24/18 Melatonin 10 mg PO PRN 06/24/18 Metoprolol Succinate 50 mg PO DAILY 06/24/18 Mirtazapine 7.5 mg PO DAILY 06/24/18 [place]-3/Dha/Epa/Fish Oil [Fish Oil 06/24/18 [place]-3 EC 1,200 mg] Sitagliptin Phos/Metformin HCl 50 mg PO BID 06/24/18 [Janumet Xr 50-500 mg Tablet] Amlodipine Besylate [Norvasc -] 5 mg PO BID 30 Days #60 tablet 07/01/18 Cefuroxime Axetil [Ceftin -] 500 mg PO Q12H #6 tablet 07/01/18 predniSONE [Deltasone -] See Taper PO ASDIR 6 Days #12 tab 07/01/18 REVIEW OF SYSTEMS see HPI PHYSICAL EXAMINATION Vital Signs - 24 hr 09/12/19 09/12/19 09/12/19 17:00 17:15 17:27 Temperature 98.2 F Pulse Rate 94 H 94 H Pulse Rate [ Right Apical] Respiratory 28 H Rate Blood Pressure 193/53 H Blood Pressure [Left Arm] O2 Sat by Pulse 100 100 97 Oximetry (%) 09/12/19 09/12/19 09/12/19 18:15 19:53 20:02 Temperature Pulse Rate Pulse Rate [ 84 79 Right Apical] Respiratory 20 12 Rate Blood Pressure Blood Pressure 170/66 181/70 H [Left Arm] O2 Sat by Pulse 100 98 98 Oximetry (%) 09/12/19 21:06 Temperature Pulse Rate Pulse Rate [ Right Apical] Respiratory Rate Blood Pressure Blood Pressure 142/72 [Left Arm] O2 Sat by Pulse Oximetry (%) GENERAL: Awake, alert, and fully oriented, in no acute distress. On BiPAP. HEAD: Normal with no signs of trauma. EYES: Pupils equal, round and reactive to light, extraocular movements intact, conjunctiva clear. EARS, NOSE, THROAT: Ears normal, nares patent, moist mucous membranes. NECK: Normal range of motion, no JVD, or masses. LUNGS: Clear to auscultation bilaterally. No wheezes, and no crackles appreciated. No accessory muscle use. HEART: Regular rate and rhythm, no murmur appreciated ABDOMEN: Soft, suprapubic tenderness on palpation, not distended, normoactive bowel sounds MUSCULOSKELETAL: Normal range of motion. No CVA tenderness. UPPER EXTREMITIES: Warm, well-perfused. No cyanosis. No clubbing. No edema. LOWER EXTREMITIES: Warm, well-perfused. No calf tenderness. +1 pitting edema to [place] b/l NEUROLOGICAL: Cranial nerves II-XII intact. Normal speech. PSYCHIATRIC: Appropriate mood and affect. SKIN: Warm, dry, normal turgor Laboratory Results - last 24 hr 09/12/19 09/12/19 09/12/19 17:20 17:20 17:20 WBC 9.2 RBC 5.25 H Hgb 11.1 Hct 35.5 MCV 67.5 L MCH 21.1 L MCHC 31.2 L RDW 17.6 H Plt Count 282 D MPV 8.9 Absolute Neuts (auto) 6.9 Neutrophils % 75.2 Lymphocytes % 18.3 D Monocytes % 4.6 D Eosinophils % 1.7 D Basophils % 0.2 Nucleated RBC % 0 Hypochromia 2+ Platelet Estimate Normal Platelet Comment No clumping noted Anisocytosis 1+ Microcytosis 1+ Anticoagulation Therapy Puncture Site ABG pH ABG pCO2 at Pt Temp ABG pO2 at Pt Temp ABG HCO3 ABG O2 Sat (Measured) ABG O2 Content ABG Base Excess Hipolito Test Carboxyhemoglobin Methemoglobin O2 Delivery Device Oxygen Flow Rate Vent Mode Vent Rate Mechanical Rate Pressure Support Vent Sodium 140 Potassium 3.8 Chloride 103 Carbon Dioxide 27 Anion Gap 10 BUN 13.0 Creatinine 1.1 Est GFR (CKD-EPI)AfAm 54.53 Est GFR (CKD-EPI)NonAf 47.05 Random Glucose 291 H Calcium 8.5 Magnesium 2.5 H Total Bilirubin 0.2 AST 24 ALT 30 Alkaline Phosphatase 109 Creatine Kinase 212 H Creatine Kinase Index 0.6 CK-MB (CK-2) 1.4 Troponin I < 0.02 B-Natriuretic Peptide 1549.5 H Total Protein 6.9 Albumin 3.5 09/12/19 17:45 WBC RBC Hgb Hct MCV MCH MCHC RDW Plt Count MPV Absolute Neuts (auto) Neutrophils % Lymphocytes % Monocytes % Eosinophils % Basophils % Nucleated RBC % Hypochromia Platelet Estimate Platelet Comment Anisocytosis Microcytosis Anticoagulation Therapy No Result Required. Puncture Site No Result Required. ABG pH 7.45 ABG pCO2 at Pt Temp 37.7 ABG pO2 at Pt Temp 118 H ABG HCO3 26.1 ABG O2 Sat (Measured) 98.2 H ABG O2 Content 14.6 ABG Base Excess 2.6 H Hipolito Test Positive Carboxyhemoglobin 1.0 Methemoglobin 1.3 O2 Delivery Device No Result Required. Oxygen Flow Rate No Result Required. Vent Mode No Result Required. Vent Rate No Result Required. Mechanical Rate No Result Required. Pressure Support Vent No Result Required. Sodium Potassium Chloride Carbon Dioxide Anion Gap BUN Creatinine Est GFR (CKD-EPI)AfAm Est GFR (CKD-EPI)NonAf Random Glucose Calcium Magnesium Total Bilirubin AST ALT Alkaline Phosphatase Creatine Kinase Creatine Kinase Index CK-MB (CK-2) Troponin I B-Natriuretic Peptide Total Protein Albumin EKG HR 88, NSR, LAD, T-wave inversion II and III, LVH, [id number], poor quality from labored breathing CXR b/l pulmonary edema, no patchy infiltrates ASSESSMENT/PLAN: Ms. Herrera is an 79y/o female with severe asthma, HTN, HLD, DM, CAD s/p 1 stent, and aortic valve replacement (2014) who presents with progressive shortness of breath. She was found to be hypertensive at presentation with pulmonary edema. #hypertensive emergency -initial MAP 145, not to lower below 95 in first 24 hours or SBP <140 -nitro drip titrated -Lasix 40mg IV now -Lasix 40mg IV BID -BiPAP -I/Os with castillo -daily weights -UA for proteinuria -BMP for Cr -repeat EKG -repeat troponin -echo -cards consulted #severe asthma -given decadron and Mg in ED -BiPAP #dysuria -UA -urine cx #DM -A1C -BGMs -SSI #CAD DVT Ppx heparin FEN PO fluids monitor K, Mg sodium-controlled diet dispo ICU Called [facility] for med rec but system was down. Will need to reconcile meds. Visit type - Emergency Visit Emergency Visit: Yes ED Registration Date: 09/12/19 Care time: The patient presented to the Emergency Department on the above date and was hospitalized for further evaluation of their emergent condition. - New Patient This patient is new to me today: Yes Date on this admission: 09/13/19 - Critical Care Critical Care patient: Yes Total Critical Care Time (in minutes): 35 Critical Care Statement: The care of this patient involved high complexity decision making to prevent further life threatening deterioration of the patient 's condition and/or to evaluate & treat vital organ system(s) failure or risk of failure. ATTENDING PHYSICIAN STATEMENT I saw and evaluated the patient. I reviewed the resident's note and discussed the case with the resident. I agree with the resident's findings and plan as documented. SUBJECTIVE: OBJECTIVE: ASSESSMENT AND PLAN:
--- NOTE | 2019-09-12 23:27 | PN ---
Teaching Attending Note Name of Resident: Carmen Reynolds ATTENDING PHYSICIAN STATEMENT I saw and evaluated the patient. I reviewed the resident's note and discussed the case with the resident. I agree with the resident's findings and plan as documented. SUBJECTIVE: 79 year old female with a significant PMH of asthma, hypertension, hyperlipidemia, diabetes, coronary artery disease s/p CABG, 1 stent, AVR, presents complaining of the last few days of worsening shortness of breath. She has decreased exercise tolerance and is not able to walk more than 1 block. Patient did not complain of significant chest pain or palpitations. Chest x- ray in the emergency room showed pulmonary edema and patient was started on BiPAP, given nebulizer treatment, Decadron and furosemide IV. Noted to have severe hypertension and was started on nitroglycerin drip. OBJECTIVE: Last Vital Signs Temp Pulse Resp BP Pulse Ox 98.2 F 87 18 197/75 H 100 09/12/19 17:00 09/12/19 21:30 09/12/19 21:30 09/12/19 21:30 09/12/19 21:47 GENERAL: Well developed, well nourished. Awake and alert. No acute distress. HEENT: Normocephalic, atraumatic. PERRLA, EOMI. No conjunctival pallor. Sclera are non- icteric. Moist mucous membranes. Oropharynx is clear. NECK: Supple. Full ROM. No JVD. Carotid pulses 2+ and symmetric, without bruits. No thyromegaly. No lymphadenopathy. CARDIOVASCULAR: Regular rate and rhythm. No murmurs, rubs, or gallops. Distal pulses are 2+ and symmetric. PULMONARY: Bilateral crackles appreciated, Equal air entry bilaterally ABDOMINAL: Soft. Non-tender. Non-distended. No rebound or guarding. No organomegaly. Normoactive bowel sounds. MUSCULOSKELETAL Normal range of motion at all joints. No bony deformities or tenderness. No CVA tenderness. EXTREMITIES: No cyanosis. No clubbing. No edema. No calf tenderness. SKIN: Warm and dry. Normal capillary refill. No rashes. No jaundice. PSYCHIATRIC: Cooperative. Good eye contact. Appropriate mood and affect. Abnormal Lab Results 09/12/19 09/12/19 09/12/19 17:20 17:20 17:20 RBC 5.25 H MCV 67.5 L MCH 21.1 L MCHC 31.2 L RDW 17.6 H ABG pO2 at Pt Temp ABG O2 Sat (Measured) ABG Base Excess Random Glucose 291 H Magnesium 2.5 H Creatine Kinase 212 H B-Natriuretic Peptide 1549.5 H 09/12/19 17:45 RBC MCV MCH MCHC RDW ABG pO2 at Pt Temp 118 H ABG O2 Sat (Measured) 98.2 H ABG Base Excess 2.6 H Random Glucose Magnesium Creatine Kinase B-Natriuretic Peptide Imaging studies reviewed EKG was consistent with LVH, probable old infarct in anterior inferior leads, left axis deviation. No evidence of acute ischemia ASSESSMENT AND PLAN: Hypertensive emergency with flash pulmonary edema and respiratory failure requiring nitroglycerin drip, warrants admission for ICU at this time.Troponin was negative x1. Should rule out worsening aortic regurgitation as patient really has history of this. This may contribute to worsening pulmonary edema. Admit to ICU Continue with nitroglycerin drip, goal is to reduce blood pressure gradually by 25% in first 6 hours Trend troponin urine analysis Diurese with furosemide 40 mg IV twice daily Strict I's and O's and daily weights Free water and salt restriction Maintain Sanabria catheter for accurate I's and O's Echo Maintain on BiPAP Cardiology evaluation Beta-yehuda LV inhibitor Aspirin statin Monitor vital signs closely #Uncontrolled diabetes mellitus NovoLog sliding scale Basal insulin Diabetic diet Send A1c DVT prophylaxis with heparin subcutaneously
[2019-09-13] MEDS: NITROGLYCERIN 25MG/D5W 250ML 25 MG/250 ML ML IVPB SCH (00:02)
--- NOTE | 2019-09-13 00:28 | CONSULT ---
Consult Consult Specialty:: Pulm/CCM Reason for Consultation:: hypertensive emergency - History of Present Illness Chief Complaint: SOB, MELENDEZ History of Present Illness: This is 79 yo woman w/ HTN, CAD s/p PCI, AVR (2014) who presented w/ progressive SOB, MELENDEZ, paroxysmal nocturnal dyspnea found to have hypetensive emergency (SBP 220) w/ pulmonary edema requiring NIPPV, nitroglycerin drip being transferred to ICU for continued care. Briefly, patient states that over the last 2 weeks she has noted increased SOB, mainly manifested with dyspnea on exertion as she is limited to being able to ambulate 2 blocks before becoming severely SOB. She notes nocturnal awakenings 2 /2 SOB that have increased recently. She denies sick prodrome, fever, chills, n /v, diarrhea, chest pain, CARLOS, blurry vision. In the ED she was noted to have significant WOB and placed on NIPPV. CXR w/ PVC. VS: SBP 220s/110s. She was started on nitro drip and given lasix. Labs significant for BNP 1500, negative troponin. AB.45/38/118. - History Source History Provided By: Patient, Family Member Limitations to Obtaining History: No Limitations - Past Medical History Cardio/Vascular: Yes: CAD, HTN, Hyperlipdemia Pulmonary: Yes: Asthma Endocrine: Yes: Diabetes Mellitus - Alcohol/Substance Use Hx Alcohol Use: No - Smoking History Smoking history: Unknown if ever smoked Have you smoked in the past 12 months: No Home Medications - Allergies Allergies/Adverse Reactions: Allergies Allergy/AdvReac Type Severity Reaction Status Date / Time No Known Allergies Allergy Verified 09/12/19 17:04 - Home Medications Home Medications: Ambulatory Orders Aspirin [ASA -] 81 mg PO DAILY 04/19/18 Atorvastatin Ca [Lipitor] 40 mg PO DAILY 04/19/18 Donepezil HCl [Aricept] 5 mg PO DAILY 04/19/18 Cholecalciferol (Vitamin D3) [Vitamin D3] 2,000 unit PO DAILY 06/24/18 Losartan Potassium 100 mg PO DAILY 06/24/18 Melatonin 10 mg PO PRN 06/24/18 Metoprolol Succinate 50 mg PO DAILY 06/24/18 Mirtazapine 7.5 mg PO DAILY 06/24/18 [place]-3/Dha/Epa/Fish Oil [Fish Oil [place]-3 EC 1,200 mg] 06/24/18 Sitagliptin Phos/Metformin HCl [Janumet Xr 50-500 mg Tablet] 50 mg PO BID Amlodipine Besylate [Norvasc -] 5 mg PO BID 30 Days #60 tablet 07/01/18 Cefuroxime Axetil [Ceftin -] 500 mg PO Q12H #6 tablet 07/01/18 predniSONE [Deltasone -] See Taper PO ASDIR 6 Days #12 tab 07/01/18 Family Medical History Family History: Unremarkable Review of Systems - Review of Systems Constitutional: reports: Weakness Eyes: reports: No Symptoms HENT: reports: No Symptoms Neck: reports: No Symptoms Cardiovascular: reports: Shortness of Breath Respiratory: reports: Exercise Intolerance, PND, SOB, SOB on Exertion, Wheezing Gastrointestinal: reports: No Symptoms Genitourinary: reports: No Symptoms Neurological: reports: Dizziness Endocrine: reports: No Symptoms Physical Exam Vital Signs: Vital Signs Temperature 98.2 F 09/12/19 17:00 Pulse Rate 87 09/12/19 21:30 Respiratory Rate 18 09/12/19 21:30 Blood Pressure 197/75 H 09/12/19 21:30 O2 Sat by Pulse Oximetry (%) 100 09/12/19 21:47 Current Medications Furosemide (Lasix Injection -) 40 mg IVPUSH BIDLASIX YISEL Heparin Sodium (Porcine) (Heparin -) 5,000 unit SQ TID YISEL Nitroglycerin/Dextrose (Nitroglycerin 25mg/D5w 250ml) 25 mg in 250 mls @ 6 mls/ hr IVPB TITR [facility]; Protocol Last Admin: 09/13/19 00:02 Dose: 10 mcg/min, 6 mls/hr Insulin Aspart (Novolog Vial Sliding Scale -) 1 vial SQ ACHS [facility]; Protocol Constitutional: Yes: Mild Distress Eyes: Yes: Conjunctiva Clear, EOM Intact HENT: Yes: Normocephalic Neck: Yes: Trachea Midline Cardiovascular: Yes: Regular Rate and Rhythm, S1, S2 Respiratory: Yes: Rales Gastrointestinal: Yes: Normal Bowel Sounds, Soft, Abdomen, Obese Extremities: Yes: WNL Edema: LLE: 1+, RLE: 1+ Integumentary: Yes: WNL Neurological: Yes: Alert, Oriented ...Motor Strength: WNL Psychiatric: Yes: Alert, Oriented Labs: CBC, BMP 09/12/19 17:20 09/12/19 17:20 Imaging - Results Chest X-ray: Report Reviewed, Image Reviewed (PVC) Problem List - Problems (1) Acute respiratory distress Code(s): R06.03 - ACUTE RESPIRATORY DISTRESS (2) CHF exacerbation Code(s): I50.9 - HEART FAILURE, UNSPECIFIED (3) Hypertensive urgency Code(s): I16.0 - HYPERTENSIVE URGENCY (4) Diabetes Code(s): E11.9 - TYPE 2 DIABETES MELLITUS WITHOUT COMPLICATIONS (5) S/P AVR (aortic valve replacement) Code(s): Z95.2 - PRESENCE OF PROSTHETIC HEART VALVE Assessment/Plan A/P: This is an 79 yo woman w/ HTN, CAD, AVR (2014) presenting with progressive SOB, MELENDEZ, PND found to have hypertensive emergency w/ hypoxic respiratory failure r/ t pulmonary vascular congestion . -O2 for sat >90 -NIPPV for pulmonary edema -PRN albuterol for h/o asthma -lasix for goal net out -trend BNP -follow CXR -Nitro vs labetalol for BP control w/ goal SBP 160-180 overnight and will restart oral anti-HTN -cardiology consult in AM -tele monitoring -ECHO -EKG dara for strict I&Os (if patient allows) -start home lantus in AM -UFH sq for DVT ppx -No indication for GI PPX Boerem ACNP Pulm/CCM CCT: 40m
[2019-09-13] MEDS ORDERED: ALBUTEROL SO4 2.5/IPRATROPIUM 0.5 INH SOL 3 ML VIAL.NEB. NEB PRN (00:38)
[2019-09-13] MEDS: HEPARIN NA (PORCINE) 5,000 UNITS/ML 1ML VIAL SQ SCH ×4 (01:32→21:50)
[2019-09-13] MEDS: INSULIN SLIDING SCALE (NOVOLOG) 1 VIAL SQ SCH ×4 (01:33→17:26)
[2019-09-13] MEDS: FUROSEMIDE 40 MG/4 ML INJECTABLE VIAL IVPUSH SCH ×2 (05:39→13:57)
[2019-09-13 06:37] LABS: HEMATOCRIT 30.1 % (32.4-45.2); HEMOGLOBIN 9.9 GM/dL (10.7-15.3); MCH 21.6 pg (25.7-33.7); MEAN CELL VOLUME 65.5 fl (80-96); PLATELET COUNT 260 K/MM3 (134-434); RBC 4.59 M/mm3 (3.60-5.2); RDW 17.2 % (11.6-15.6); WHITE BLOOD COUNT 8.9 K/mm3 (4.0-10.0)
[2019-09-13] MEDS: INSULIN (LEVEMIR) 100 UNITS/ML UNITS SQ SCH ×2 (06:41→21:51)
[2019-09-13] MEDS ORDERED: INSULIN SLIDING SCALE (NOVOLOG) 1 VIAL SQ SCH (07:00)
[2019-09-13 07:06] LABS: ALBUMIN 3.2 g/dl (3.4-5.0); ALK PHOS 95 U/L (45-117); ANION GAP 9 MMOL/L (8-16); BILIRUBIN,TOTAL 0.3 mg/dL (0.2-1); BLOOD UREA NITROGEN 18.6 mg/dL (7-18); CALCIUM 8.3 mg/dL (8.5-10.1); CHLORIDE 102 mmol/L (98-107); CO2 29 mmol/L (21-32); CREATININE 1.3 mg/dL (0.55-1.3); GLUCOSE,RANDOM 249 mg/dL (74-106); MAGNESIUM 2.6 mg/dL (1.8-2.4); POTASSIUM 3.9 mmol/L (3.5-5.1); SGOT/AST 16 U/L (15-37); SGPT/ALT 25 U/L (13-61); SODIUM 140 mmol/L (136-145)
[2019-09-13 08:50] LABS: EPI CELLS 2.8 /HPF (0-5/HPF); HYALINE CASTS 2 /lpf (0-8); URINE APPEARANCE CLOUDY; URINE BACTERIA 3186.4 /hpf (NEGATIVE); URINE BILIRUBIN NEGATIVE (NEGATIVE); URINE COLOR YELLOW; URINE GLUCOSE (UA) 3+ (NEGATIVE); URINE KETONE NEGATIVE (NEGATIVE); URINE LEUK ESTERASE NEGATIVE (NEGATIVE); URINE NITRITE NEGATIVE (NEGATIVE); URINE PROTEIN 2+ (NEGATIVE); URINE RBC 1 /hpf (0-4); URINE UROBILINOGEN 0.2 mg/dL (0.2-1.0)
--- NOTE | 2019-09-13 09:35 | PN ---
Progress Note (short form) - Note Progress Note: Subjective: she feels better . SOB is better . L sided cp when she coughs or takes deep breath. she reports being compliant with her meds. no fever . hasrunny nose from allergies x 2 yrs Objective: Vital Signs: Last Vital Signs Temp Pulse Resp BP Pulse Ox 98 F 78 19 144/69 99 09/13/19 06:00 09/13/19 08:00 09/13/19 08:00 09/13/19 08:00 09/13/19 02:37 Laboratory Results - last 24 hr 09/12/19 09/12/19 09/12/19 06:00 17:20 17:20 WBC 9.2 RBC 5.25 H Hgb 11.1 Hct 35.5 MCV 67.5 L MCH 21.1 L MCHC 31.2 L RDW 17.6 H Plt Count 282 D MPV 8.9 Absolute Neuts (auto) 6.9 Neutrophils % 75.2 Lymphocytes % 18.3 D Monocytes % 4.6 D Eosinophils % 1.7 D Basophils % 0.2 Nucleated RBC % 0 Hypochromia 2+ Platelet Estimate Normal Platelet Comment No clumping noted Anisocytosis 1+ Microcytosis 1+ Anticoagulation Therapy Puncture Site ABG pH ABG pCO2 at Pt Temp ABG pO2 at Pt Temp ABG HCO3 ABG O2 Sat (Measured) ABG O2 Content ABG Base Excess [place] Test Carboxyhemoglobin Methemoglobin O2 Delivery Device Oxygen Flow Rate Vent Mode Vent Rate Mechanical Rate Pressure Support Vent Sodium 140 Potassium 3.8 Chloride 103 Carbon Dioxide 27 Anion Gap 10 BUN 13.0 Creatinine 1.1 Est GFR (CKD-EPI)AfAm 54.53 Est GFR (CKD-EPI)NonAf 47.05 POC Glucometer Random Glucose 291 H Calcium 8.5 Magnesium 2.5 H Total Bilirubin 0.2 AST 24 ALT 30 Alkaline Phosphatase 109 Creatine Kinase Creatine Kinase Index CK-MB (CK-2) Troponin I B-Natriuretic Peptide 1549.5 H Total Protein 6.9 Albumin 3.5 Urine Color Yellow Urine Appearance Cloudy Urine pH 5.0 Ur Specific [place] 1.015 Urine Protein 2+ H Urine Glucose (UA) 3+ H Urine Ketones Negative Urine Blood Negative Urine Nitrite Negative Urine Bilirubin Negative Urine Urobilinogen 0.2 Ur Leukocyte Esterase Negative Urine RBC (Auto) 1 Urine Casts (Auto) 2 U Epithel Cells (Auto) 2.8 Urine Bacteria (Auto) 3186.4 09/12/19 09/12/19 09/13/19 17:20 17:45 01:27 WBC RBC Hgb Hct MCV MCH MCHC RDW Plt Count MPV Absolute Neuts (auto) Neutrophils % Lymphocytes % Monocytes % Eosinophils % Basophils % Nucleated RBC % Hypochromia Platelet Estimate Platelet Comment Anisocytosis Microcytosis Anticoagulation Therapy No Result Required. Puncture Site No Result Required. ABG pH 7.45 ABG pCO2 at Pt Temp 37.7 ABG pO2 at Pt Temp 118 H ABG HCO3 26.1 ABG O2 Sat (Measured) 98.2 H ABG O2 Content 14.6 ABG Base Excess 2.6 H [place] Test Positive Carboxyhemoglobin 1.0 Methemoglobin 1.3 O2 Delivery Device No Result Required. Oxygen Flow Rate No Result Required. Vent Mode No Result Required. Vent Rate No Result Required. Mechanical Rate No Result Required. Pressure Support Vent No Result Required. Sodium Potassium Chloride Carbon Dioxide Anion Gap BUN Creatinine Est GFR (CKD-EPI)AfAm Est GFR (CKD-EPI)NonAf POC Glucometer 307 Random Glucose Calcium Magnesium Total Bilirubin AST ALT Alkaline Phosphatase Creatine Kinase 212 H Creatine Kinase Index 0.6 CK-MB (CK-2) 1.4 Troponin I < 0.02 B-Natriuretic Peptide Total Protein Albumin Urine Color Urine Appearance Urine pH Ur Specific [place] Urine Protein Urine Glucose (UA) Urine Ketones Urine Blood Urine Nitrite Urine Bilirubin Urine Urobilinogen Ur Leukocyte Esterase Urine RBC (Auto) Urine Casts (Auto) U Epithel Cells (Auto) Urine Bacteria (Auto) 09/13/19 09/13/19 09/13/19 05:17 05:17 05:20 WBC 8.9 RBC 4.59 Hgb 9.9 L Hct 30.1 L D MCV 65.5 L MCH 21.6 L MCHC 33.0 RDW 17.2 H Plt Count 260 MPV 9.0 Absolute Neuts (auto) Neutrophils % Lymphocytes % Monocytes % Eosinophils % Basophils % Nucleated RBC % Hypochromia Platelet Estimate Platelet Comment Anisocytosis Microcytosis Anticoagulation Therapy Puncture Site ABG pH ABG pCO2 at Pt Temp ABG pO2 at Pt Temp ABG HCO3 ABG O2 Sat (Measured) ABG O2 Content ABG Base Excess [place] Test Carboxyhemoglobin Methemoglobin O2 Delivery Device Oxygen Flow Rate Vent Mode Vent Rate Mechanical Rate Pressure Support Vent Sodium 140 Potassium 3.9 Chloride 102 Carbon Dioxide 29 Anion Gap 9 BUN 18.6 H Creatinine 1.3 Est GFR (CKD-EPI)AfAm 44.56 Est GFR (CKD-EPI)NonAf 38.44 POC Glucometer 236 Random Glucose 249 H Calcium 8.3 L Magnesium 2.6 H Total Bilirubin 0.3 AST 16 ALT 25 Alkaline Phosphatase 95 Creatine Kinase Creatine Kinase Index CK-MB (CK-2) Troponin I < 0.02 B-Natriuretic Peptide Total Protein 6.0 L Albumin 3.2 L Urine Color Urine Appearance Urine pH Ur Specific [place] Urine Protein Urine Glucose (UA) Urine Ketones Urine Blood Urine Nitrite Urine Bilirubin Urine Urobilinogen Ur Leukocyte Esterase Urine RBC (Auto) Urine Casts (Auto) U Epithel Cells (Auto) Urine Bacteria (Auto) Physical Exam: NAD . VS BP 145/80, Lungs: bibasilar crackles , CV: RRR, 3/6 SM at RUSB . possible JVD Abd: obese, soft, NT, ND , NL BS Ext : No edema or erythema . No fungal infection among toes Assessment/Plan: 79 y/o lady with h/o DM , HTN, HTN, CAD, AVR, HLP, asthma , s/p CABG, who presented with worsening SOB. she was found to have HTN emergency 1- HTN emergency. with pulm edema . BP improved on NGT gtt. compliance is reported. not sure of trigger . - EKG with sinus rhythm with TWI in AVL and I, which is not changed from . trop neg x 2. doubt ACS - taper off NGT gtt and start her home am meds - pharmacy called and I was not able to confirm her meds . - cont lasix for now, stil has signs of pulm cogestion . possibly for 2-3 more doses - echo - tele was reviewed. No events 2- DM : - cont SSI and levemir 3- h/o CAD : - resume asa - cont BB , ARB. 4- DVT p x: heparin sq Visit type - Emergency Visit Emergency Visit: Yes ED Registration Date: 09/12/19 Care time: The patient presented to the Emergency Department on the above date and was hospitalized for further evaluation of their emergent condition. - New Patient This patient is new to me today: Yes Date on this admission: 09/13/19 - Critical Care Critical Care patient: No
[2019-09-13] MEDS ORDERED: amLODIPine BESYLATE 2.5 MG TABLET (FP) PO SCH (10:00)
--- NOTE | 2019-09-13 10:12 | EKG ---
Test Reason : Blood Pressure : / mmHG Vent. Rate : 088 BPM Atrial Rate : 088 BPM P-R Int : 180 ms QRS Dur : 094 ms QT Int : 390 ms P-R-T Axes : 053 -27 114 degrees QTc Int : 471 ms POOR DATA QUALITY, INTERPRETATION MAY BE ADVERSELY AFFECTED NORMAL SINUS RHYTHM MODERATE VOLTAGE CRITERIA FOR LVH, MAY BE NORMAL VARIANT CANNOT RULE OUT SEPTAL INFARCT (CITED ON OR BEFORE 23-JUN-2018) T WAVE ABNORMALITY, CONSIDER LATERAL ISCHEMIA ABNORMAL ECG WHEN COMPARED WITH ECG OF 30-JUN-2018 12:32, NO SIGNIFICANT CHANGE WAS FOUND Confirmed by JACKELYN OATES MD ([id number]) on 09/13/2019 10:11:57 AM Referred By: Confirmed By:JACKELYN OATES MD
[2019-09-13] MEDS ORDERED: PT OWN MED DRAWER 7, Y5N ONE (10:41)
[2019-09-13] MEDS: LOSARTAN POTASSIUM 50 MG TABLET (FP) PO SCH (10:43)
[2019-09-13] MEDS: ASPIRIN COATED 81 MG TABLET.EC PO SCH (10:50)
--- NOTE | 2019-09-13 11:18 | CON.CARD ---
Consult Consult Specialty:: cardiology Reason for Consultation:: shortness of breath; hx diastoic CHF with AoVR (? bioprosthetic) - History of Present Illness Chief Complaint: Pt A&Ox3; no chest pain, dyspnea. History of Present Illness: 79 year old female with a significant PMH of asthma, hypertension, hyperlipidemia, diabetes, coronary artery disease s/p 1 stent and ? bioprosthetic aortic valve replacement (2014, on ASA) who presents to the emergency department for several weeks of SOB, worsening over the past 2 days. Pt notes her shortness of breath wakes her up at night and she is not able to walk more than a block or two. Pt notes she does not have an albuterol inhaler. She was never hospitalized or intubated for asthma exacerbation. Daughter does report a similar episode of SOB last year for which she was given medication to "get the fluid off." Pt says her mother and four brothers of "asthma". The patient denies chest pain, headache, focal weakness/numbness and dizziness. Denies fever, chills,, nausea, vomiting, diarrhea and constipation. Denies dysuria, frequency, urgency and hematuria. Allergies: NKDA Past surgical history: cholecystectomy and aortic valve replacement Social history: Nonsmoker. Denies ETOH use and recreational drug use. Primary Care Physician: Dr. Ayan Kessler - History Source History Provided By: Patient, Medical Record Limitations to Obtaining History: No Limitations - Past Medical History Cardio/Vascular: Yes: CAD (s/p stent), CHF (diastolic ), HTN, Hyperlipdemia Pulmonary: Yes: Asthma Reproductive: Yes: Postmenopausal ...: No Heme/Onc: Yes: Anemia Psych: Yes: Anxiety Endocrine: Yes: Diabetes Mellitus - Alcohol/Substance Use Hx Alcohol Use: No - Smoking History Smoking history: Never smoked Have you smoked in the past 12 months: No Home Medications - Allergies Allergies/Adverse Reactions: Allergies Allergy/AdvReac Type Severity Reaction Status Date / Time No Known Allergies Allergy Verified 09/12/19 17:04 - Home Medications Home Medications: Ambulatory Orders Amlodipine Besylate/Benazepril [Amlodipine-Benazepril 2.5-10] 2.5 mg PO DAILY Aspirin Coated [Ecotrin -] 81 mg PO DAILY 09/13/19 Atorvastatin Ca [Lipitor] 40 mg PO HS 09/13/19 Roger Chewable Aspirin 81 mg PO DAILY 09/13/19 Donepezil HCl [Aricept -] 10 mg PO DAILY 09/13/19 Glimepiride [Amaryl -] 1 mg PO DAILY 09/13/19 Melatonin 10 mg PO DAILY 09/13/19 Metoprolol Succinate [Toprol Xl] 50 mg PO DAILY 09/13/19 Mirtazapine [Remeron -] 15 mg PO DAILY 09/13/19 Saxagliptin HCl/Metformin HCl [[place]lyze Xr 2.5-1,000 mg Tab] 2.5 mg PO BID Family Medical History Family Hx Respiratory Disorders: Mother ( of "asthma"), Brother (4 brothers of "asthma") Review of Systems - Review of Systems Constitutional: reports: Weakness Eyes: reports: No Symptoms HENT: reports: No Symptoms Neck: reports: No Symptoms Cardiovascular: reports: Shortness of Breath Respiratory: reports: Exercise Intolerance, SOB, Wheezing Gastrointestinal: reports: No Symptoms Genitourinary: reports: No Symptoms Breasts: reports: No Symptoms Reported Musculoskeletal: reports: Muscle Weakness Integumentary: reports: No Symptoms Neurological: reports: Weakness Endocrine: reports: No Symptoms Hematology/Lymphatic: reports: No Symptoms Psychiatric: reports: Anxiety - Risk Factors Known Risk Factors: Yes: Age, Hypercholesterolemia, Hypertension Vital Signs: Vital Signs Temperature 98.7 F 09/13/19 10:52 Pulse Rate 102 H 09/13/19 10:00 Respiratory Rate 26 H 09/13/19 10:00 Blood Pressure 141/66 09/13/19 10:00 O2 Sat by Pulse Oximetry (%) 100 09/13/19 10:47 - Other Data Labs, Other Data: CBC, BMP 09/13/19 05:17 09/13/19 05:17 Troponin, BNP 09/12/19 09/12/19 09/13/19 17:20 17:20 05:17 Troponin I < 0.02 < 0.02 B-Natriuretic Peptide 1549.5 H Troponin, BNP 09/12/19 09/12/19 09/13/19 17:20 17:20 05:17 Troponin I < 0.02 < 0.02 B-Natriuretic Peptide 1549.5 H Problem List - Problems (1) Bronchial asthma Assessment/Plan: O2, steroids, bronchodilators, and steroids per pumonologist. Juan family hx of "asthma"-->early mortality of mother, brothers. Code(s): J45.909 - UNSPECIFIED ASTHMA, UNCOMPLICATED (2) Acute respiratory distress Code(s): R06.03 - ACUTE RESPIRATORY DISTRESS (3) Acute on chronic diastolic (congestive) heart failure Assessment/Plan: On losartan, metoprolol, and amlodipine. BP control is essential. TNI < 0.02 x 2. f/u ECHO. Respiratory management per pulmonary. F/u BUN/Cr, electrolytes, Is and Os, daily weight. Code(s): I50.33 - ACUTE ON CHRONIC DIASTOLIC (CONGESTIVE) HEART FAILURE (4) HTN (hypertension) Assessment/Plan: On metoprolol ER (though hx ?"bronchial asthma", and pt says her mother and 4 brothers have of "asthma". Would f/u with pulmonary as to lung status and whether beta blockers may be continued). On amlodipiine (increase dose) and losartan. If needed, consider adding hydrlazlazine. F/u ECHO. Code(s): I10 - ESSENTIAL (PRIMARY) HYPERTENSION (5) Hyperlipidemia Assessment/Plan: LDL 109 mg/dL Start statin. Code(s): E78.5 - HYPERLIPIDEMIA, UNSPECIFIED (6) Microcytic anemia Code(s): D50.9 - IRON DEFICIENCY ANEMIA, UNSPECIFIED (7) Diabetes Code(s): E11.9 - TYPE 2 DIABETES MELLITUS WITHOUT COMPLICATIONS Assessment/Plan CCU time spent: 75 minutes.
[2019-09-13 13:07] LABS: CHOLESTEROL 188 mg/dL (50-200); HDL CHOLESTEROL 57 mg/dL (40-60); LDL CHOLESTEROL (ONLY SJRH) 109 mg/dL (5-100); TRIGLYCERIDES 104 mg/dL (0-150)
[2019-09-13] MEDS ORDERED: LABETALOL HCL 5 MG/1 ML (100MG/20 ML VIAL) IVPUSH ONE (17:28)
[2019-09-13] MEDS ORDERED: amLODIPine BESYLATE 2.5 MG TABLET (FP) PO ONE (17:59)
[2019-09-13] MEDS: hydrALAZINE HCL 10 MG TABLET PO SCH ×2 (19:42→21:52)
[2019-09-13] MEDS: DONEPEZIL HCL 10 MG TABLET (FP) PO SCH (21:50)
[2019-09-13] MEDS: MIRTAZAPINE 15 MG TABLET (FP) PO SCH (21:52)
[2019-09-14] MEDS: NITROGLYCERIN 25MG/D5W 250ML 25 MG/250 ML ML IVPB SCH (01:17)
[2019-09-14] MEDS: FUROSEMIDE 40 MG/4 ML INJECTABLE VIAL IVPUSH SCH ×2 (05:16→14:30)
[2019-09-14] MEDS: HEPARIN NA (PORCINE) 5,000 UNITS/ML 1ML VIAL SQ SCH ×3 (05:16→21:26)
[2019-09-14] MEDS: INSULIN SLIDING SCALE (NOVOLOG) 1 VIAL SQ SCH ×3 (06:20→16:40)
[2019-09-14] MEDS: INSULIN (LEVEMIR) 100 UNITS/ML UNITS SQ SCH ×2 (06:20→21:32)
[2019-09-14 08:10] LABS: ANION GAP 7 MMOL/L (8-16); BLOOD UREA NITROGEN 26.9 mg/dL (7-18); CALCIUM 8.6 mg/dL (8.5-10.1); CHLORIDE 104 mmol/L (98-107); CO2 32 mmol/L (21-32); GLUCOSE,RANDOM 113 mg/dL (74-106); MAGNESIUM 2.6 mg/dL (1.8-2.4); N-TERMINAL BNP 1216.4 pg/ml (5-450); PHOSPHOROUS 4.5 mg/dL (2.5-4.9); POTASSIUM 3.8 mmol/L (3.5-5.1); SODIUM 143 mmol/L (136-145)
[2019-09-14 08:24] LABS: HEMATOCRIT 29.2 % (32.4-45.2); HEMOGLOBIN 9.5 GM/dL (10.7-15.3); MCH 21.5 pg (25.7-33.7); MCHC 32.6 g/dl (32.0-36.0); MEAN CELL VOLUME 66.1 fl (80-96); MEAN PLT VOLUME 8.8 fl (7.5-11.1); PLATELET COUNT 272 K/MM3 (134-434); RBC 4.41 M/mm3 (3.60-5.2); RDW 17.4 % (11.6-15.6)
[2019-09-14 08:25] LABS: WHITE BLOOD COUNT 11.8 K/mm3 (4.0-10.0)
[2019-09-14] MEDS: ASPIRIN COATED 81 MG TABLET.EC PO SCH (09:37)
[2019-09-14] MEDS: hydrALAZINE HCL 10 MG TABLET PO SCH ×2 (09:37→21:25)
[2019-09-14] MEDS: LOSARTAN POTASSIUM 50 MG TABLET (FP) PO SCH (09:38)
[2019-09-14] MEDS ORDERED: hydrALAZINE HCL 20 MG/ML VIAL IVPUSH ONE (09:51)
[2019-09-14] MEDS ORDERED: amLODIPine BESYLATE 5 MG TABLET (FP) PO SCH (10:00)
[2019-09-14] MEDS ORDERED: ALBUTEROL SO4 2.5/IPRATROPIUM 0.5 INH SOL 3 ML VIAL.NEB. NEB SCH (10:00)
[2019-09-14] MEDS: ALBUTEROL SO4 2.5/IPRATROPIUM 0.5 INH SOL 3 ML VIAL.NEB. NEB SCH ×2 (10:20→15:31)
--- NOTE | 2019-09-14 10:25 | ECHO ---
Name: ANGEL LUIS RUSSO Exam:Adult Echocardiogram Study Date: 09/14/2019 09:12 AM Age: 79 yrs Reason For Study: pulmonary edema Height: 60 in Weight: 175 lb BSA: 1.8 m2 MMode/2D Measurements & Calculations IVSd: 1.3 cm Ao root diam: 2.0 cm LVIDd: 3.9 cm LA dimension: 3.7 cm LVIDs: 2.9 cm LVPWd: 1.3 cm EDV(Teich): 65.5 ml LVOT diam: 2.0 cm ESV(Teich): 32.3 ml LAV (MOD-bp): 53.4 ml Doppler Measurements & Calculations MV E max parish: 137.0 cm/sec Ao V2 max: 232.1 cm/sec MV A max [place]: 78.8 cm/sec Ao max P.6 mmHg MV E/A: 1.7 Ao V2 mean: 170.0 cm/sec MV dec time: 0.19 sec Ao mean P.9 mmHg Ao V2 VTI: 58.4 cm JERI(I,D): 0.79 cm2 JERI(V,D): 0.90 cm2 LV V1 max P.9 mmHg SV(LVOT): 45.9 ml LV V1 mean P.2 mmHg LV V1 max: 68.9 cm/sec LV V1 mean: 50.4 cm/sec LV V1 VTI: 15.1 cm TR max [place]: 239.4 cm/sec PA V2 max: 108.6 cm/sec TR max P.2 mmHg PA max P.7 mmHg Med [place]: 5.5 cm/sec Med E/e': 24.7 Lat [place] E' [place]: 7.3 cm/sec Lat E/e': 18.8 Procedure A complete two-dimensional transthoracic echocardiogram was performed (2D, M-mode, Doppler and color flow Doppler). Technically limited study. Left Ventricle The left ventricle is normal in size. There is mild concentric left ventricular hypertrophy. Left nati tricular systolic function is normal. Ejection Fraction = 55-60%. LV distology reveals pseudonormal mitral inf ow with elevated filling pressure. No regional wall motion abnormalities noted. Right Ventricle The right ventricle is normal size. The right ventricular systolic function is normal. Atria The left atrial size is normal. Right atrial size is normal. Mitral Valve There is mild mitral annular calcification. There is mild mitral valve thickening. There is no mitral regurgitation noted. Tricuspid Valve The tricuspid valve is normal in structure and function. There is mild tricuspid regurgitation. Pulmo nary artery systolic pressure is at least 31 mmHg if RA pressure is assumed 3 mmHg. Aortic Valve There is a bioprosthetic aortic valve. The prosthetic aortic valve is well-seated. The prosthetic aor tic valve appears to open well. Aortic max gradient is 22 mmHg and mean gradient is 14 mmHg. DI (dimensionless index) is 0.24 (LVOT VTI 14.5 cm, Aortic VTI 62.5 cm). Mild aortic regurgitation. Pulmonic Valve The pulmonic valve is not well visualized. Great Vessels The aortic root is normal size. Pericardium/Pleura There is no pericardial effusion. Interpretation Summary Technically limited study The left ventricle is normal in size. There is mild concentric left ventricular hypertrophy. Left ventricular systolic function is normal. No regional wall motion abnormalities noted. Ejection Fraction = 55-60%. LV distology reveals pseudonormal mitral infow with elevated filling pressure The right ventricular systolic function is normal. The left atrial size is normal. Right atrial size is normal. There is mild mitral annular calcification. There is mild mitral valve thickening. There is no mitral regurgitation noted. There is mild tricuspid regurgitation. Pulmonary artery systolic pressure is at least 31 mmHg if RA pressure is assumed 3 mmHg There is a bioprosthetic aortic valve. The prosthetic aortic valve is well-seated. The prosthetic aortic valve appears to open well. Mild aortic regurgitation. Aortic max gradient is 22 mmHg and mean gradient is 14 mmHg. DI (dimensionless index) is 0.24 (LVOT V TI 14.5 cm, Aortic VTI 62.5 cm) There is no pericardial effusion. Jason Giles MD 09/14/2019 10:25 AM
--- NOTE | 2019-09-14 11:18 | PN ---
Progress Note, Physician Chief Complaint: Events noted Not in distress History of Present Illness: Patient was seen and examined in ICU. Awake. Chart was reviewed Denies chest pain, SOB or palpitations - Current Medication List Current Medications: Active Medications Albuterol/Ipratropium (Duoneb -) 1 amp NEB RQ4H [facility] Amlodipine Besylate (Norvasc -) 5 mg PO DAILY [facility] Last Admin: 09/14/19 09:39 Dose: 5 mg Aspirin (Ecotrin -) 81 mg PO DAILY [facility] Last Admin: 09/14/19 09:37 Dose: 81 mg Donepezil HCl (Aricept -) 10 mg PO HS [facility] Last Admin: 09/13/19 21:50 Dose: 10 mg Furosemide (Lasix Injection -) 40 mg IVPUSH BIDLASIX [facility] Last Admin: 09/14/19 05:16 Dose: 40 mg Heparin Sodium (Porcine) (Heparin -) 5,000 unit SQ TID [facility] Last Admin: 09/14/19 05:16 Dose: 5,000 unit Hydralazine HCl (Apresoline -) 10 mg PO BID [facility] Last Admin: 09/14/19 09:37 Dose: 10 mg Nitroglycerin/Dextrose (Nitroglycerin 25mg/D5w 250ml) 25 mg in 250 mls @ 6 mls/ hr IVPB TITR [facility]; Protocol Last Admin: 09/14/19 01:17 Dose: Not Given Insulin Aspart (Novolog Vial Sliding Scale -) 1 vial SQ TIDAC [facility]; Protocol Last Admin: 09/14/19 06:20 Dose: Not Given Insulin Detemir (Levemir Vial) 35 units SQ BID@0700,2200 [facility] Last Admin: 09/14/19 06:20 Dose: 35 units Losartan Potassium (Cozaar -) 100 mg PO DAILY [facility] Last Admin: 09/14/19 09:38 Dose: 100 mg Methylprednisolone Sodium Succinate (Solu-Medrol -) 40 mg IVPUSH BID [facility] Metoprolol Succinate (Toprol Xl -) 50 mg PO DAILY [facility] Last Admin: 09/14/19 09:38 Dose: 50 mg Mirtazapine (Remeron -) 15 mg PO HS [facility] Last Admin: 09/13/19 21:52 Dose: 15 mg - Objective Vital Signs: Vital Signs Temperature 98.4 F 09/14/19 10:00 Pulse Rate 74 09/14/19 10:00 Respiratory Rate 09/14/19 10:00 Blood Pressure 155/65 09/14/19 10:00 O2 Sat by Pulse Oximetry (%) 99 09/14/19 10:00 Eyes: Yes: PERRL HENT: Yes: Atraumatic Neck: Yes: Supple Cardiovascular: Yes: Regular Rate and Rhythm, S1, S2 Respiratory: Yes: Diminished Gastrointestinal: Yes: Normal Bowel Sounds, Soft. No: Tenderness Edema: No Additional Findings/Remarks: - Review of Systems Constitutional: denies: Chills, Fever Cardiovascular: denies Chest Pain, (+) Shortness of Breath. denies: Palpitations Respiratory: reports: SOB, SOB on Exertion. denies: Cough, Hemoptysis, Orthopnea, PND Gastrointestinal: denies: Abdominal Pain, Constipation, Diarrhea, Melena, Nausea , Rectal Bleeding, Vomiting Genitourinary: denies Dysuria. denies: Hematuria Neurological: denies: Dizziness, Headache, Seizure, Syncope Labs: CBC, BMP 09/14/19 06:20 09/14/19 06:20 Problem List - Problems (1) Acute on chronic diastolic (congestive) heart failure Code(s): I50.33 - ACUTE ON CHRONIC DIASTOLIC (CONGESTIVE) HEART FAILURE (2) Acute respiratory distress Code(s): R06.03 - ACUTE RESPIRATORY DISTRESS (3) Bronchial asthma Code(s): J45.909 - UNSPECIFIED ASTHMA, UNCOMPLICATED (4) HTN (hypertension) Code(s): I10 - ESSENTIAL (PRIMARY) HYPERTENSION (5) Hyperlipidemia Code(s): E78.5 - HYPERLIPIDEMIA, UNSPECIFIED (6) Microcytic anemia Code(s): D50.9 - IRON DEFICIENCY ANEMIA, UNSPECIFIED (7) Diabetes Code(s): E11.9 - TYPE 2 DIABETES MELLITUS WITHOUT COMPLICATIONS (8) S/P AVR (aortic valve replacement) Code(s): Z95.2 - PRESENCE OF PROSTHETIC HEART VALVE Assessment/Plan 1. Bronchial asthma 2. Acute on chronic diastolic failure 3. HTN 4. Hypercholesterolemia 5. Anemia 6. Diabetes mellitus 7. AVR PLAN: 1. Continue secured entrance monitor when ICU is discontinued 2. Echocardiography to assess LV/RV and valvular function 3. Continue current cardiac medications including Losartan, Metoprolol ER and Amlodipine in addition Hydralazine may be used 4. Statin therapy 5. Bronchodilator, steroids and empiric antibiotic coverage 6. ASA 81 mg QD 7. DVT prophylaxis 8. DM treatment Jason Giles MD
--- NOTE | 2019-09-14 11:20 | PN ---
Teaching Attending Note Name of Resident: Sylvie Anna ATTENDING PHYSICIAN STATEMENT I saw and evaluated the patient. I reviewed the resident's note and discussed the case with the resident. I agree with the resident's findings and plan as documented. SUBJECTIVE: Patient seen and examined in the ICU. Feels overall better. No CP or SOB. Some dry cough. Off IV NTG Intake & Output 09/11/19 09/12/19 09/13/19 09/14/19 23:59 23:59 23:59 23:59 Intake Total 813 120 Output Total 500 Balance 313 120 Weight 175 lb 172 lb 5 oz Last Vital Signs Temp Pulse Resp BP Pulse Ox 98.4 F 74 19 155/65 99 09/14/19 10:00 09/14/19 10:00 09/14/19 10:00 09/14/19 10:00 09/14/19 10:00 Active Medications Albuterol/Ipratropium (Duoneb -) 1 amp NEB RQ4H [facility] Amlodipine Besylate (Norvasc -) 5 mg PO DAILY [facility] Last Admin: 09/14/19 09:39 Dose: 5 mg Aspirin (Ecotrin -) 81 mg PO DAILY [facility] Last Admin: 09/14/19 09:37 Dose: 81 mg Donepezil HCl (Aricept -) 10 mg PO HS [facility] Last Admin: 09/13/19 21:50 Dose: 10 mg Furosemide (Lasix Injection -) 40 mg IVPUSH BIDLASIX [facility] Last Admin: 09/14/19 05:16 Dose: 40 mg Heparin Sodium (Porcine) (Heparin -) 5,000 unit SQ TID [facility] Last Admin: 09/14/19 05:16 Dose: 5,000 unit Hydralazine HCl (Apresoline -) 10 mg PO BID [facility] Last Admin: 09/14/19 09:37 Dose: 10 mg Nitroglycerin/Dextrose (Nitroglycerin 25mg/D5w 250ml) 25 mg in 250 mls @ 6 mls/ hr IVPB TITR [facility]; Protocol Last Admin: 09/14/19 01:17 Dose: Not Given Insulin Aspart (Novolog Vial Sliding Scale -) 1 vial SQ TIDAC [facility]; Protocol Last Admin: 09/14/19 06:20 Dose: Not Given Insulin Detemir (Levemir Vial) 35 units SQ BID@0700,2200 [facility] Last Admin: 09/14/19 06:20 Dose: 35 units Losartan Potassium (Cozaar -) 100 mg PO DAILY [facility] Last Admin: 09/14/19 09:38 Dose: 100 mg Methylprednisolone Sodium Succinate (Solu-Medrol -) 40 mg IVPUSH BID [facility] Metoprolol Succinate (Toprol Xl -) 50 mg PO DAILY [facility] Last Admin: 09/14/19 09:38 Dose: 50 mg Mirtazapine (Remeron -) 15 mg PO HS [facility] Last Admin: 09/13/19 21:52 Dose: 15 mg Constitutional: Yes: Awake and alert, NAD Eyes: Yes: Conjunctiva Clear, EOM Intact HENT: Yes: Normocephalic Neck: Yes: Trachea Midline Cardiovascular: Yes: Regular Rate and Rhythm, S1, S2 Respiratory: Yes: Scattered Rales, (-) Wheeze Gastrointestinal: Yes: Normal Bowel Sounds, Soft, Abdomen, Obese Extremities: Yes: WNL Edema: LLE: 1+, RLE: 1+ Integumentary: Yes: WNL Neurological: Yes: Alert, Oriented ...Motor Strength: WNL Psychiatric: Yes: Alert, Oriented Labs: Laboratory Results - last 24 hr 09/12/19 09/13/19 09/13/19 17:00 05:17 12:12 WBC RBC Hgb Hct MCV MCH MCHC RDW Plt Count MPV Manual Slide Review Platelet Comment VBG pH Cancelled POC VBG pCO2 Cancelled POC VBG pO2 Cancelled VBG HCO3 Cancelled VBG O2 Sat (Bogdan) Cancelled VBG Base Excess Cancelled Sodium 140 Potassium 3.9 Chloride 102 Carbon Dioxide 29 Anion Gap 9 BUN 18.6 H Creatinine 1.3 Est GFR (CKD-EPI)AfAm 44.56 Est GFR (CKD-EPI)NonAf 38.44 POC Glucometer 302 Random Glucose 249 H Calcium 8.3 L Phosphorus Magnesium 2.6 H Total Bilirubin 0.3 AST 16 ALT 25 Alkaline Phosphatase 95 Troponin I < 0.02 B-Natriuretic Peptide Total Protein 6.0 L Albumin 3.2 L Triglycerides 104 Cholesterol 188 Total LDL Cholesterol 109 H HDL Cholesterol 57 09/13/19 09/14/19 09/14/19 17:14 06:05 06:20 WBC 11.8 H RBC 4.41 Hgb 9.5 L Hct 29.2 L MCV 66.1 L MCH 21.5 L MCHC 32.6 RDW 17.4 H Plt Count 272 MPV 8.8 Manual Slide Review Yes Platelet Comment No clotting detected VBG pH POC VBG pCO2 POC VBG pO2 VBG HCO3 VBG O2 Sat (Bogdan) VBG Base Excess Sodium Potassium Chloride Carbon Dioxide Anion Gap BUN Creatinine Est GFR (CKD-EPI)AfAm Est GFR (CKD-EPI)NonAf POC Glucometer 334 121 Random Glucose Calcium Phosphorus Magnesium Total Bilirubin AST ALT Alkaline Phosphatase Troponin I B-Natriuretic Peptide Total Protein Albumin Triglycerides Cholesterol Total LDL Cholesterol HDL Cholesterol 09/14/19 06:20 WBC RBC Hgb Hct MCV MCH MCHC RDW Plt Count MPV Manual Slide Review Platelet Comment VBG pH POC VBG pCO2 POC VBG pO2 VBG HCO3 VBG O2 Sat (Bogdan) VBG Base Excess Sodium 143 Potassium 3.8 Chloride 104 Carbon Dioxide 32 Anion Gap 7 L BUN 26.9 H Creatinine 1.0 Est GFR (CKD-EPI)AfAm 61.19 Est GFR (CKD-EPI)NonAf 52.79 POC Glucometer Random Glucose 113 H Calcium 8.6 Phosphorus 4.5 Magnesium 2.6 H Total Bilirubin AST ALT Alkaline Phosphatase Troponin I B-Natriuretic Peptide 1216.4 H Total Protein Albumin Triglycerides Cholesterol Total LDL Cholesterol HDL Cholesterol Problem List - Problems (1) Acute respiratory distress Code(s): R06.03 - ACUTE RESPIRATORY DISTRESS (2) CHF exacerbation Code(s): I50.9 - HEART FAILURE, UNSPECIFIED (3) Hypertensive urgency Code(s): I16.0 - HYPERTENSIVE URGENCY (4) Diabetes Code(s): E11.9 - TYPE 2 DIABETES MELLITUS WITHOUT COMPLICATIONS (5) S/P AVR (aortic valve replacement) Code(s): Z95.2 - PRESENCE OF PROSTHETIC HEART VALVE Assessment/Plan Hypertensive emergency HTN CAD AVR (2014) Lasix Supplemental O2 as needed to maintain saturation BD TX PRN Titrate BP medkirstin castillo Glycemic control ECHO VTE prophylaxis OOB to chair Cardiac Telemetry monitoring Dr Paul
--- NOTE | 2019-09-14 11:28 | PN ---
Physical Exam: SUBJECTIVE: Patient seen and examined at bedside. No overnight events. Satting well on 3L nasal cannula. Endorses mild shortness of breath this morning. Voiding freely, no hematuria. Patient ambulating well. OBJECTIVE: Vital Signs Period Temp Pulse Resp BP Sys/Escamilla Pulse Ox Last 24 Hr 98.4 F-98.8 F 60-86 18-25 140-190/56-108 97-99 GENERAL: AOx3 NAD HEENT: No lymphadenopathy LUNGS: B/l fine crackles noted. No incr work of breathing no accessory muscle use. HEART: RRR S1S2 heard no murmurs ABDOMEN: Soft NTND. + bowel sounds. No organomegaly. EXTREMITIES: 2+ pulses, warm, well-perfused, no edema. PSYCH: Normal mood, normal affect. SKIN: No rashes/ ulcerations/ lesions noted Laboratory Results - last 24 hr 09/12/19 09/13/19 09/13/19 17:00 05:17 12:12 WBC RBC Hgb Hct MCV MCH MCHC RDW Plt Count MPV Manual Slide Review Platelet Comment VBG pH Cancelled POC VBG pCO2 Cancelled POC VBG pO2 Cancelled VBG HCO3 Cancelled VBG O2 Sat (Bogdan) Cancelled VBG Base Excess Cancelled Sodium 140 Potassium 3.9 Chloride 102 Carbon Dioxide 29 Anion Gap 9 BUN 18.6 H Creatinine 1.3 Est GFR (CKD-EPI)AfAm 44.56 Est GFR (CKD-EPI)NonAf 38.44 POC Glucometer 302 Random Glucose 249 H Calcium 8.3 L Phosphorus Magnesium 2.6 H Total Bilirubin 0.3 AST 16 ALT 25 Alkaline Phosphatase 95 Troponin I < 0.02 B-Natriuretic Peptide Total Protein 6.0 L Albumin 3.2 L Triglycerides 104 Cholesterol 188 Total LDL Cholesterol 109 H HDL Cholesterol 57 09/13/19 09/14/19 09/14/19 17:14 06:05 06:20 WBC 11.8 H RBC 4.41 Hgb 9.5 L Hct 29.2 L MCV 66.1 L MCH 21.5 L MCHC 32.6 RDW 17.4 H Plt Count 272 MPV 8.8 Manual Slide Review Yes Platelet Comment No clotting detected VBG pH POC VBG pCO2 POC VBG pO2 VBG HCO3 VBG O2 Sat (Bogdan) VBG Base Excess Sodium Potassium Chloride Carbon Dioxide Anion Gap BUN Creatinine Est GFR (CKD-EPI)AfAm Est GFR (CKD-EPI)NonAf POC Glucometer 334 121 Random Glucose Calcium Phosphorus Magnesium Total Bilirubin AST ALT Alkaline Phosphatase Troponin I B-Natriuretic Peptide Total Protein Albumin Triglycerides Cholesterol Total LDL Cholesterol HDL Cholesterol 09/14/19 06:20 WBC RBC Hgb Hct MCV MCH MCHC RDW Plt Count MPV Manual Slide Review Platelet Comment VBG pH POC VBG pCO2 POC VBG pO2 VBG HCO3 VBG O2 Sat (Bogdan) VBG Base Excess Sodium 143 Potassium 3.8 Chloride 104 Carbon Dioxide 32 Anion Gap 7 L BUN 26.9 H Creatinine 1.0 Est GFR (CKD-EPI)AfAm 61.19 Est GFR (CKD-EPI)NonAf 52.79 POC Glucometer Random Glucose 113 H Calcium 8.6 Phosphorus 4.5 Magnesium 2.6 H Total Bilirubin AST ALT Alkaline Phosphatase Troponin I B-Natriuretic Peptide 1216.4 H Total Protein Albumin Triglycerides Cholesterol Total LDL Cholesterol HDL Cholesterol Active Medications Generic Name Dose Route Start Last Admin Trade Name Freq PRN Reason Stop Dose Admin Albuterol/Ipratropium 1 amp 09/14/19 12:00 Duoneb - NEB RQ4H [facility] Amlodipine Besylate 5 mg 09/14/19 10:00 09/14/19 09:39 Norvasc - PO 5 mg DAILY [facility] Administration Aspirin 81 mg 09/13/19 10:00 09/14/19 09:37 Ecotrin - PO 81 mg DAILY [facility] Administration Donepezil HCl 10 mg 09/13/19 22:00 09/13/19 21:50 Aricept - PO 10 mg HS [facility] Administration Furosemide 40 mg 09/13/19 06:00 09/14/19 05:16 Lasix Injection - IVPUSH 40 mg BIDLASIX [facility] Administration Heparin Sodium (Porcine) 5,000 unit 09/12/19 22:30 09/14/19 05:16 Heparin - SQ 5,000 unit TID [facility] Administration Hydralazine HCl 10 mg 09/13/19 18:15 09/14/19 09:37 Apresoline - PO 10 mg BID [facility] Administration Nitroglycerin/Dextrose 25 mg in 250 mls @ 6 mls/hr 09/12/19 23:20 09/14/19 01 :17 Nitroglycerin 25mg/D5w 250ml IVPB Not Given TITR [facility] Protocol 10 MCG/MIN Insulin Aspart 1 vial 09/13/19 11:00 09/14/19 06:20 Novolog Vial Sliding Scale - SQ Not Given [facility] Protocol Insulin Detemir 35 units 09/13/19 07:00 09/14/19 06:20 Levemir Vial SQ 35 units BID@0700,2200 [facility] Administration Losartan Potassium 100 mg 09/13/19 10:00 09/14/19 09:38 Cozaar - PO 100 mg DAILY [facility] Administration Methylprednisolone Sodium Succinate 40 mg 09/14/19 10:00 Solu-Medrol - IVPUSH BID [facility] Metoprolol Succinate 50 mg 09/13/19 10:00 09/14/19 09:38 Toprol Xl - PO 50 mg DAILY [facility] Administration Mirtazapine 15 mg 09/13/19 22:00 09/13/19 21:52 Remeron - PO 15 mg HS [facility] Administration ASSESSMENT/PLAN: 79 y.o. F PMH HTN, HLD, DM, CAD s/p stent placement, aortic valve replacement in 2014 presented 09/12/19 for worsening dyspnea & hypertensive emergency. #Neuro -AOx3 -C/w donepezil 10mg/day (home med) #CV -Remains hypertensive; Hydralazine 10mg BID added -Cardio on board (Dr. Stevenson): c/w losartan, toprol, norvasc -Trops negx2 -Continue to monitor on tele -Echo: Mild LVH, EF 55-60%, mild TR & AR #Pulm -CXR improved today -C/w duoneb, solumedrol, lasix -On 3L nasal cannula #Renal -BUN/Cr 26.9/1 #Heme/Onc -H&H stable # -UA 2+ protein, 3+ glucose -Urine cx LFNB -Denies hematuria/ dysuria today, voiding freely #FEN -No standing fluids -Lytes WNL -Na controlled diet #Prophylaxis -Heparin SQ #Dispo -telemetry Visit type - Emergency Visit Emergency Visit: No - New Patient This patient is new to me today: Yes Date on this admission: 09/14/19 - Critical Care Critical Care patient: Yes Total Critical Care Time (in minutes): 36 Critical Care Statement: The care of this patient involved high complexity decision making to prevent further life threatening deterioration of the patient 's condition and/or to evaluate & treat vital organ system(s) failure or risk of failure. ATTENDING PHYSICIAN STATEMENT I saw and evaluated the patient. I reviewed the resident's note and discussed the case with the resident. I agree with the resident's findings and plan as documented. SUBJECTIVE: OBJECTIVE: ASSESSMENT AND PLAN:
[2019-09-14] MEDS: methylPREDNISolone NA SUCC 40 MG/1 ML VIAL IVPUSH SCH ×2 (11:30→21:26)
--- NOTE | 2019-09-14 13:23 | EKG ---
Test Reason : Blood Pressure : / mmHG Vent. Rate : 068 BPM Atrial Rate : 068 BPM P-R Int : 190 ms QRS Dur : 088 ms QT Int : 438 ms P-R-T Axes : 045 -36 054 degrees QTc Int : 465 ms NORMAL SINUS RHYTHM LEFT AXIS DEVIATION VOLTAGE CRITERIA FOR LEFT VENTRICULAR HYPERTROPHY CANNOT RULE OUT SEPTAL INFARCT (CITED ON OR BEFORE 23-JUN-2018) ABNORMAL ECG WHEN COMPARED WITH ECG OF 12-SEP-2019 17:23, NO SIGNIFICANT CHANGE WAS FOUND Confirmed by JESSICA ROSAS MD ([id number]) on 09/14/2019 1:22:49 PM Referred By: Confirmed By:JESSICA ROSAS MD
--- NOTE | 2019-09-14 14:28 | PN ---
Physical Exam: SUBJECTIVE: Patient seen and examined. She reports shortness of breath and some chest pain with breathing. She denies fever, chills, abdominal pain, nausea, or vomiting. OBJECTIVE: Vital Signs Period Temp Pulse Resp BP Sys/Escamilla Pulse Ox Last 24 Hr 98.4 F-98.5 F 60-86 18-25 140-190/58-108 97-99 GENERAL: The patient is awake, alert, and fully oriented, in mild distress. HEAD: Normal with no signs of trauma. EYES: PERRL, extraocular movements intact, conjunctiva clear. ENT: Ears normal, nares patent, moist mucous membranes. On NC 3L. NECK: Trachea midline, full range of motion LUNGS: Tachypneic, coughing, decreased air entry, bilateral expiratory wheezes HEART: Regular rate and rhythm, 3/6 systolic murmur ABDOMEN: Soft, nontender, nondistended, normoactive bowel sounds EXTREMITIES: Warm, well-perfused, trace LE edema. NEUROLOGICAL: Cranial nerves II through XII grossly intact. Normal speech. PSYCH: Normal mood, normal affect. SKIN: Warm, dry, normal turgor Laboratory Results - last 24 hr 09/12/19 09/13/19 09/14/19 17:00 17:14 06:05 WBC RBC Hgb Hct MCV MCH MCHC RDW Plt Count MPV Manual Slide Review Platelet Comment VBG pH Cancelled POC VBG pCO2 Cancelled POC VBG pO2 Cancelled VBG HCO3 Cancelled VBG O2 Sat (Bogdan) Cancelled VBG Base Excess Cancelled Sodium Potassium Chloride Carbon Dioxide Anion Gap BUN Creatinine Est GFR (CKD-EPI)AfAm Est GFR (CKD-EPI)NonAf POC Glucometer 334 121 Random Glucose Calcium Phosphorus Magnesium Troponin I B-Natriuretic Peptide 09/14/19 09/14/19 09/14/19 06:20 06:20 11:41 WBC 11.8 H RBC 4.41 Hgb 9.5 L Hct 29.2 L MCV 66.1 L MCH 21.5 L MCHC 32.6 RDW 17.4 H Plt Count 272 MPV 8.8 Manual Slide Review Yes Platelet Comment No clotting detected VBG pH POC VBG pCO2 POC VBG pO2 VBG HCO3 VBG O2 Sat (Bogdan) VBG Base Excess Sodium 143 Potassium 3.8 Chloride 104 Carbon Dioxide 32 Anion Gap 7 L BUN 26.9 H Creatinine 1.0 Est GFR (CKD-EPI)AfAm 61.19 Est GFR (CKD-EPI)NonAf 52.79 POC Glucometer 134 Random Glucose 113 H Calcium 8.6 Phosphorus 4.5 Magnesium 2.6 H Troponin I < 0.02 B-Natriuretic Peptide 1216.4 H Active Medications Generic Name Dose Route Start Last Admin Trade Name Freq PRN Reason Stop Dose Admin Albuterol/Ipratropium 1 amp 09/14/19 12:00 09/14/19 10:20 Duoneb - NEB 1 amp RQ4H [facility] Administration Amlodipine Besylate 5 mg 09/14/19 10:00 09/14/19 09:39 Norvasc - PO 5 mg DAILY [facility] Administration Aspirin 81 mg 09/13/19 10:00 09/14/19 09:37 Ecotrin - PO 81 mg DAILY [facility] Administration Donepezil HCl 10 mg 09/13/19 22:00 09/13/19 21:50 Aricept - PO 10 mg HS [facility] Administration Furosemide 40 mg 09/13/19 06:00 09/14/19 05:16 Lasix Injection - IVPUSH 40 mg BIDLASIX [facility] Administration Heparin Sodium (Porcine) 5,000 unit 09/12/19 22:30 09/14/19 05:16 Heparin - SQ 5,000 unit TID [facility] Administration Hydralazine HCl 10 mg 09/13/19 18:15 09/14/19 09:37 Apresoline - PO 10 mg BID [facility] Administration Nitroglycerin/Dextrose 25 mg in 250 mls @ 6 mls/hr 09/12/19 23:20 09/14/19 01 :17 Nitroglycerin 25mg/D5w 250ml IVPB Not Given [facility] Protocol 10 MCG/MIN Insulin Aspart 1 vial 09/13/19 11:00 09/14/19 11:43 Novolog Vial Sliding Scale - SQ Not Given [facility] Protocol Insulin Detemir 35 units 09/13/19 07:00 09/14/19 06:20 Levemir Vial SQ 35 units BID@0700,2200 [facility] Administration Losartan Potassium 100 mg 09/13/19 10:00 09/14/19 09:38 Cozaar - PO 100 mg DAILY [facility] Administration Methylprednisolone Sodium Succinate 40 mg 09/14/19 10:00 09/14/19 11:30 Solu-Medrol - IVPUSH 40 mg BID [facility] Administration Metoprolol Succinate 50 mg 09/13/19 10:00 09/14/19 09:38 Toprol Xl - PO 50 mg DAILY [facility] Administration Mirtazapine 15 mg 09/13/19 22:00 09/13/19 21:52 Remeron - PO 15 mg HS [facility] Administration ASSESSMENT/PLAN: Ms. Herrera is an 79y/o female with severe asthma, HTN, HLD, DM, CAD s/p 1 stent, and aortic valve replacement (2014) who presents with progressive shortness of breath. She was found to be hypertensive at presentation with pulmonary edema. #hypertensive emergency with pulmonary edema and proteinuria -troponin negative today, no new changes with EKG -BNP improving -Lasix 40mg IV BID -hydralazine 10mg BID, extra dose given today -losartan 100mg daily -amlodipine 5mg daily -daily weights -cards following #severe asthma -Solumedrol 40mg IV BID -duo-nebs Q4H -O2 #UTI -urine cx GNB -ceftriaxone 1g daily #DM -UA + for glucose -Lantus 35U BID -BGMs -SSI #HLD LDL 109 #CAD -ASA #dementia -Aricept -Remeron DVT Ppx heparin FEN PO fluids monitor K, Mg sodium-controlled diet dispo ICU Visit type - Emergency Visit Emergency Visit: Yes ED Registration Date: 09/12/19 Care time: The patient presented to the Emergency Department on the above date and was hospitalized for further evaluation of their emergent condition. - New Patient This patient is new to me today: No - Critical Care Critical Care patient: Yes Total Critical Care Time (in minutes): 35 Critical Care Statement: The care of this patient involved high complexity decision making to prevent further life threatening deterioration of the patient 's condition and/or to evaluate & treat vital organ system(s) failure or risk of failure. - Discharge Referral Referred to [facility] No ATTENDING PHYSICIAN STATEMENT I saw and evaluated the patient. I reviewed the resident's note and discussed the case with the resident. I agree with the resident's findings and plan as documented. SUBJECTIVE: OBJECTIVE: ASSESSMENT AND PLAN:
[2019-09-14 15:07] VITALS: BMI 33.5
--- NOTE | 2019-09-14 15:54 | PN ---
Teaching Attending Note Name of Resident: Jon Coppola ATTENDING PHYSICIAN STATEMENT I saw and evaluated the patient. I reviewed the resident's note and discussed the case with the resident. I agree with the resident's findings and plan as documented. SUBJECTIVE: Had chest pressure this am , BP was high . SOB , wheezes . no cough . OBJECTIVE: NAD. Lungs: generalized wheezes. no crackles CV: RRR, 3/6 SM at RUSB . Abd: obese, soft, NT, ND, NL BS Ext : No edema or erythema. Assessment/Plan: 79 y/o lady with h/o DM , HTN, HTN, CAD, AVR, HLP, asthma , s/p CABG, who presented with worsening SOB. she was found to have HTN emergency 1- HTN emergency. BP was up this am ( in 200s ) despite improving yesterday . - Gave 10 mg of hydrazine x 1 - am med given. today hydralazine BId and increased norvasc were added , and will monitor BP - 2- Acute diastolic heart failure . Pulm edema due to HTN emergency: - cont lasix for today - echo reviewed. 3- Asthma exacerbation, with generalized wheezing, chest tightness and SOB. - add steroids BID - breathing treatments - chest tightness is probably due to this , but will get EKG , trop 4- DM : SSI and levemir. 5- H/o CAD : - asa - cont BB , ARB. 4- DVT px: heparin sq. Critical Care Total Critical Care Time (in minutes): 30 Critical Care Statement: The care of this patient involved high complexity decision making to prevent further life threatening deterioration of the patient 's condition and/or to evaluate & treat vital organ system(s) failure or risk of failure.
[2019-09-14] MEDS ORDERED: ALBUTEROL SO4 0.083% IH SOL 2.5 MG/3 ML VIAL.NEB. NEB PRN (16:09)
[2019-09-14] MEDS ORDERED: CEFTRIAXONE 1,000 MG in DEXTROSE 5%-WATER - 50 ML IVPB SCH (18:00)
[2019-09-14] MEDS ORDERED: DEXTROSE 5%-WATER - 50 ML IVPB ONE (18:34)
[2019-09-14] MEDS ORDERED: cefTRIAXone SODIUM 1 GM VIAL ONE (18:34)
[2019-09-14] MEDS: CEFTRIAXONE 1 GM in DEXTROSE 5%-WATER - 50 ML IVPB SCH (18:35)
[2019-09-14] MEDS: ALBUTEROL SO4 0.083% IH SOL 2.5 MG/3 ML VIAL.NEB. NEB SCH (21:25)
[2019-09-14] MEDS: DONEPEZIL HCL 10 MG TABLET (FP) PO SCH (21:26)
[2019-09-14] MEDS: MIRTAZAPINE 15 MG TABLET (FP) PO SCH (21:26)
[2019-09-15] MEDS ORDERED: FUROSEMIDE 40 MG/4 ML INJECTABLE VIAL IVPUSH SCH (06:00)
[2019-09-15] MEDS: INSULIN (LEVEMIR) 100 UNITS/ML UNITS SQ SCH ×2 (06:41→22:18)
[2019-09-15] MEDS: HEPARIN NA (PORCINE) 5,000 UNITS/ML 1ML VIAL SQ SCH ×3 (06:41→22:18)
[2019-09-15] MEDS: INSULIN SLIDING SCALE (NOVOLOG) 1 VIAL SQ SCH ×3 (06:41→17:06)
[2019-09-15 06:51] LABS: HEMATOCRIT 33.3 % (32.4-45.2); HEMOGLOBIN 10.9 GM/dL (10.7-15.3); MCH 21.8 pg (25.7-33.7); MCHC 32.6 g/dl (32.0-36.0); MEAN PLT VOLUME 8.9 fl (7.5-11.1); PLATELET COUNT 305 K/MM3 (134-434); RBC 4.98 M/mm3 (3.60-5.2); RDW 17.3 % (11.6-15.6)
[2019-09-15 07:20] LABS: CALCIUM 8.9 mg/dL (8.5-10.1); CREATININE 1.4 mg/dL (0.55-1.3); MAGNESIUM 2.7 mg/dL (1.8-2.4); POTASSIUM 4.2 mmol/L (3.5-5.1)
[2019-09-15] MEDS: ALBUTEROL SO4 0.083% IH SOL 2.5 MG/3 ML VIAL.NEB. NEB SCH ×4 (08:35→20:00)
[2019-09-15] MEDS ORDERED: cefTRIAXone SODIUM 1 GM VIAL ONE (08:58)
[2019-09-15] MEDS ORDERED: DEXTROSE 5%-WATER - 50 ML IVPB ONE (08:58)
[2019-09-15] MEDS: CEFTRIAXONE 1 GM in DEXTROSE 5%-WATER - 50 ML IVPB SCH ×2 (09:51→09:52)
[2019-09-15] MEDS: methylPREDNISolone NA SUCC 40 MG/1 ML VIAL IVPUSH SCH (09:52)
[2019-09-15] MEDS: hydrALAZINE HCL 10 MG TABLET PO SCH ×2 (09:53→22:17)
[2019-09-15] MEDS: ASPIRIN COATED 81 MG TABLET.EC PO SCH (09:53)
[2019-09-15] MEDS: LOSARTAN POTASSIUM 50 MG TABLET (FP) PO SCH (09:54)
[2019-09-15] MEDS ORDERED: amLODIPine BESYLATE 5 MG TABLET (FP) PO SCH (10:00)
--- NOTE | 2019-09-15 12:49 | PN ---
Progress Note (short form) - Note Progress Note: PULMONARY Breathing better after starting steroids. Less cough and wheezing. Vital Signs Period Temp Pulse Resp BP Sys/Escamilla Pulse Ox Last 24 Hr 97.8 F-98.2 F 76-93 18-22 133-174/63-92 98-99 Gen: NAD at rest Heart: RRR Lung: decreased breath sounds at the bases Abd: soft, nontender Ext: no edema CBC, BMP 09/15/19 06:18 09/15/19 06:18 Active Medications Albuterol Sulfate (Ventolin 0.083% Nebulizer Soln -) 1 amp NEB Q4H PRN PRN Reason: SHORT OF BREATH/WHEEZING Albuterol Sulfate (Ventolin 0.083% Nebulizer Soln -) 1 amp NEB RQID [facility] Last Admin: 09/15/19 08:35 Dose: 1 amp Amlodipine Besylate (Norvasc -) 5 mg PO DAILY [facility] Last Admin: 09/15/19 09:53 Dose: 5 mg Aspirin (Ecotrin -) 81 mg PO DAILY [facility] Last Admin: 09/15/19 09:53 Dose: 81 mg Donepezil HCl (Aricept -) 10 mg PO HS [facility] Heparin Sodium (Porcine) (Heparin -) 5,000 unit SQ TID [facility] Last Admin: 09/15/19 06:41 Dose: 5,000 unit Hydralazine HCl (Apresoline -) 10 mg PO BID [facility] Last Admin: 09/15/19 09:53 Dose: 10 mg Ceftriaxone Sodium 1 gm/ (Dextrose) 50 mls @ 200 mls/hr IVPB DAILY [facility]; Protocol Last Admin: 09/15/19 09:52 Dose: 200 mls/hr Insulin Aspart (Novolog Vial Sliding Scale -) 1 vial SQ TIDAC [facility]; Protocol Last Admin: 09/15/19 11:22 Dose: 10 units Insulin Detemir (Levemir Vial) 35 units SQ BID@0700,2200 [facility] Last Admin: 09/15/19 06:41 Dose: 35 units Losartan Potassium (Cozaar -) 100 mg PO DAILY [facility] Last Admin: 09/15/19 09:54 Dose: 100 mg Methylprednisolone Sodium Succinate (Solu-Medrol -) 40 mg IVPUSH BID [facility] Last Admin: 09/15/19 09:52 Dose: 40 mg Metoprolol Succinate (Toprol Xl -) 50 mg PO DAILY [facility] Last Admin: 09/15/19 09:53 Dose: 50 mg Mirtazapine (Remeron -) 15 mg PO HS [facility] Polyethylene Glycol (Miralax (For Daily Use) -) 17 gm PO DAILY [facility] A/P Hypertensive Urgency Acute on Chronic Diastolic Heart Failure Acute Asthma Exacerbation CAD s/p CABG DM HTN Hyperlipidemia - continue steroids, can likely change to PO in AM - inhaled bronchodilators - glucose control while on systemic steroids - DVT prophylaxis
[2019-09-15] MEDS: POLYETHYLENE GLYCOL 3350 119 GM BTL PO SCH (13:06)
--- NOTE | 2019-09-15 13:08 | PN ---
Physical Exam: SUBJECTIVE: Patient seen and examined. She reports breathing is much better and cough has decreased. There is some chest pain with cough at times. She also reports generalized mild abdominal pain. No BM in 2 days and normally has daily BMs. She denies nausea or vomiting. OBJECTIVE: Vital Signs Period Temp Pulse Resp BP Sys/Escamilla Pulse Ox Last 24 Hr 97.8 F-98.2 F 76-93 18-22 133-174/63-92 98-99 GENERAL: The patient is awake, alert, and fully oriented, in no distress. Sitting in chair. HEAD: Normal with no signs of trauma. EYES: PERRL, extraocular movements intact, conjunctiva clear. ENT: Ears normal, nares patent, moist mucous membranes. NECK: Trachea midline, full range of motion LUNGS: Expiratory wheezing at b/l bases, and right upper lobe; midline scar on chest HEART: Regular rate and rhythm, 3/6 systolic murmur ABDOMEN: Soft, mildly tender to palpation, nondistended, normoactive bowel sounds EXTREMITIES: Warm, well-perfused, trace LE edema. NEUROLOGICAL: Cranial nerves II through XII grossly intact. Normal speech. PSYCH: Normal mood, normal affect. SKIN: Warm, dry, normal turgor tele: few PVCs Laboratory Results - last 24 hr 09/14/19 09/14/19 09/15/19 16:38 21:28 06:18 WBC 10.0 RBC 4.98 Hgb 10.9 Hct 33.3 MCV 67.0 L MCH 21.8 L MCHC 32.6 RDW 17.3 H Plt Count 305 MPV 8.9 Sodium Potassium Chloride Carbon Dioxide Anion Gap BUN Creatinine Est GFR (CKD-EPI)AfAm Est GFR (CKD-EPI)NonAf POC Glucometer 345 372 Random Glucose Calcium Magnesium 09/15/19 09/15/19 09/15/19 06:18 06:39 11:21 WBC RBC Hgb Hct MCV MCH MCHC RDW Plt Count MPV Sodium 138 Potassium 4.2 Chloride 99 Carbon Dioxide 28 Anion Gap 11 BUN 41.0 H Creatinine 1.4 H Est GFR (CKD-EPI)AfAm 40.74 Est GFR (CKD-EPI)NonAf 35.15 POC Glucometer 306 358 Random Glucose 303 H Calcium 8.9 Magnesium 2.7 H Active Medications Generic Name Dose Route Start Last Admin Trade Name Freq PRN Reason Stop Dose Admin Albuterol Sulfate 1 amp 09/14/19 16:09 Ventolin 0.083% Nebulizer Soln - NEB Q4H PRN SHORT OF BREATH/WHEEZING Albuterol Sulfate 1 amp 09/14/19 20:00 09/15/19 08:35 Ventolin 0.083% Nebulizer Soln - NEB 1 amp RQID [facility] Administration Amlodipine Besylate 5 mg 09/15/19 10:00 09/15/19 09:53 Norvasc - PO 5 mg DAILY [facility] Administration Aspirin 81 mg 09/15/19 10:00 09/15/19 09:53 Ecotrin - PO 81 mg DAILY [facility] Administration Donepezil HCl 10 mg 09/15/19 22:00 Aricept - PO HS [facility] Heparin Sodium (Porcine) 5,000 unit 09/15/19 06:00 09/15/19 06:41 Heparin - SQ 5,000 unit TID [facility] Administration Hydralazine HCl 10 mg 09/15/19 10:00 09/15/19 09:53 Apresoline - PO 10 mg BID [facility] Administration Ceftriaxone Sodium 1 gm/ 50 mls @ 200 mls/hr 09/14/19 18:00 09/15/19 09:52 Dextrose IVPB 200 mls/hr DAILY [facility] Administration Protocol Insulin Aspart 1 vial 09/15/19 07:00 09/15/19 11:22 Novolog Vial Sliding Scale - SQ 10 units TIDAC [facility] Administration Protocol Insulin Detemir 35 units 09/15/19 07:00 09/15/19 06:41 Levemir Vial SQ 35 units BID@0700,2200 [facility] Administration Losartan Potassium 100 mg 09/15/19 10:00 09/15/19 09:54 Cozaar - PO 100 mg DAILY [facility] Administration Methylprednisolone Sodium Succinate 40 mg 09/15/19 10:00 09/15/19 09:52 Solu-Medrol - IVPUSH 40 mg BID [facility] Administration Metoprolol Succinate 50 mg 09/15/19 10:00 09/15/19 09:53 Toprol Xl - PO 50 mg DAILY [facility] Administration Mirtazapine 15 mg 09/15/19 22:00 Remeron - PO HS [facility] Polyethylene Glycol 17 gm 09/15/19 12:30 Miralax (For Daily Use) - PO DAILY [facility] ASSESSMENT/PLAN: Ms. Herrera is an 79y/o female with severe asthma, HTN, HLD, DM, CAD s/p 1 stent, and aortic valve replacement (2014) who presents with progressive shortness of breath. She was found to be hypertensive at presentation with pulmonary edema. #hypertensive emergency with pulmonary edema and proteinuria -Lasix d/c'ed today -hydralazine 10mg BID -amlodipine 5mg daily -losartan 100mg daily -daily weights -cards following #severe asthma -Solumedrol 40mg IV BID -duo-nebs Q4H -pulm following- may switch to PO steroids tomorrow #UTI -urine cx Klebsiella -ceftriaxone 1g daily (09/14) #non-IDDM -UA + for glucose -Lantus 35U BID -BGMs -SSI #HLD LDL 109 -will discuss with pt about statin use #CAD -ASA #dementia -Aricept -Remeron DVT Ppx heparin FEN PO fluids monitor K, Mg sodium-controlled diet dispo tele Visit type - Emergency Visit Emergency Visit: Yes ED Registration Date: 09/12/19 Care time: The patient presented to the Emergency Department on the above date and was hospitalized for further evaluation of their emergent condition. - New Patient This patient is new to me today: No - Critical Care Critical Care patient: No - Discharge Referral Referred to [facility] No ATTENDING PHYSICIAN STATEMENT I saw and evaluated the patient. I reviewed the resident's note and discussed the case with the resident. I agree with the resident's findings and plan as documented. SUBJECTIVE: OBJECTIVE: ASSESSMENT AND PLAN:
--- NOTE | 2019-09-15 15:53 | PN ---
Teaching Attending Note Name of Resident: Carmen Reynolds ATTENDING PHYSICIAN STATEMENT I saw and evaluated the patient. I reviewed the resident's note and discussed the case with the resident. I agree with the resident's findings and plan as documented. SUBJECTIVE: No fever or chills. No CARLOS. she feels much better . breathing has improved No CP OBJECTIVE: NAD. Lungs: generalized wheezes. no crackles CV: RRR, 3/6 SM at RUSB . Abd: obese, soft, NT, ND, NL BS Ext: No edema or erythema. Assessment/Plan: 79 y/o lady with h/o DM , HTN, HTN, CAD, AVR, HLP, asthma , s/p CABG, who presented with worsening SOB. she was found to have HTN emergency 1- HTN emergency.BP improved - cont current meds : hydralazine, metoprolol, norvasc and hydralazine - can increase doses of norvasc and hydralazine if needed 2- Acute diastolic heart failure . Pulm edema due to HTN emergency: -echo reviewed. - Dc lasix due to ARAMIS 3- ARAMIS: due to diuresis probably - monitor off lasix 4- Acute Asthma exacerbation - change to prednsione in am . chest exam is much improved - breathing treatments 4- UTI: cont ceftriaxone. switch to po tomorrow 5- DM:levemir and increase dose of SSI while on steroids 6- H/o CAD : - asa - cont BB , ARB. 7- DVT px: heparin sq. Possible dc tomorrow .
--- NOTE | 2019-09-15 19:38 | PN ---
Progress Note, Physician Chief Complaint: Events noted Not in distress BP improved but still elevated History of Present Illness: Patient was seen and examined on telemetry. Awake. Chart was reviewed Denies chest pain, SOB or palpitations Echocardiography normal LVEF with bioprosthetic aortic valve and pseudonormal mitral inflow and elevated filling pressure - Current Medication List Current Medications: Active Medications Albuterol Sulfate (Ventolin 0.083% Nebulizer Soln -) 1 amp NEB Q4H PRN PRN Reason: SHORT OF BREATH/WHEEZING Albuterol Sulfate (Ventolin 0.083% Nebulizer Soln -) 1 amp NEB RQID [facility] Last Admin: 09/15/19 17:16 Dose: 1 amp Amlodipine Besylate (Norvasc -) 5 mg PO DAILY [facility] Last Admin: 09/15/19 09:53 Dose: 5 mg Aspirin (Ecotrin -) 81 mg PO DAILY [facility] Last Admin: 09/15/19 09:53 Dose: 81 mg Atorvastatin Calcium (Lipitor -) 40 mg PO HS [facility] Budesonide/Formoterol Fumarate (Symbicort 160/4.5mcg -) 2 puff IH BID [facility] Donepezil HCl (Aricept -) 10 mg PO HS [facility] Heparin Sodium (Porcine) (Heparin -) 5,000 unit SQ TID [facility] Last Admin: 09/15/19 13:06 Dose: 5,000 unit Hydralazine HCl (Apresoline -) 10 mg PO BID [facility] Last Admin: 09/15/19 09:53 Dose: 10 mg Ceftriaxone Sodium 1 gm/ (Dextrose) 50 mls @ 200 mls/hr IVPB DAILY [facility]; Protocol Last Admin: 09/15/19 09:52 Dose: 200 mls/hr Insulin Aspart (Novolog Vial Sliding Scale -) 1 vial SQ TIDAC [facility]; Protocol Last Admin: 09/15/19 17:06 Dose: 11 units Insulin Detemir (Levemir Vial) 35 units SQ BID@0700,2200 [facility] Last Admin: 09/15/19 06:41 Dose: 35 units Losartan Potassium (Cozaar -) 100 mg PO DAILY [facility] Last Admin: 09/15/19 09:54 Dose: 100 mg Metoprolol Succinate (Toprol Xl -) 50 mg PO DAILY [facility] Last Admin: 09/15/19 09:53 Dose: 50 mg Mirtazapine (Remeron -) 15 mg PO [facility] Polyethylene Glycol (Miralax (For Daily Use) -) 17 gm PO DAILY [facility] Last Admin: 09/15/19 13:06 Dose: 17 gm Prednisone (Deltasone -) 40 mg PO DAILY [facility] - Objective Vital Signs: Vital Signs Temperature 98.8 F 09/15/19 15:40 Pulse Rate 77 09/15/19 15:40 Respiratory Rate 20 09/15/19 15:40 Blood Pressure 149/63 09/15/19 15:40 O2 Sat by Pulse Oximetry (%) 99 09/15/19 09:00 Eyes: Yes: PERRL HENT: Yes: Atraumatic Neck: Yes: Supple Cardiovascular: Yes: Regular Rate and Rhythm, S1, S2 Respiratory: Yes: Diminished Gastrointestinal: Yes: Normal Bowel Sounds, Soft. No: Tenderness Edema: No Additional Findings/Remarks: - Review of Systems Constitutional: denies: Chills, Fever Cardiovascular: denies Chest Pain, Shortness of Breath. denies: Palpitations Respiratory: denies SOB, SOB on Exertion. denies: Cough, Hemoptysis, Orthopnea , PND Gastrointestinal: denies: Abdominal Pain, Constipation, Diarrhea, Melena, Nausea , Rectal Bleeding, Vomiting Genitourinary: denies: Dysuria. denies: Hematuria Neurological: denies: Dizziness, Headache, Seizure, Syncope Labs: CBC, BMP 09/15/19 06:18 09/15/19 06:18 Problem List - Problems (1) Acute on chronic diastolic (congestive) heart failure Code(s): I50.33 - ACUTE ON CHRONIC DIASTOLIC (CONGESTIVE) HEART FAILURE (2) Acute respiratory distress Code(s): R06.03 - ACUTE RESPIRATORY DISTRESS (3) Bronchial asthma Code(s): J45.909 - UNSPECIFIED ASTHMA, UNCOMPLICATED (4) HTN (hypertension) Code(s): I10 - ESSENTIAL (PRIMARY) HYPERTENSION (5) Hyperlipidemia Code(s): E78.5 - HYPERLIPIDEMIA, UNSPECIFIED (6) Microcytic anemia Code(s): D50.9 - IRON DEFICIENCY ANEMIA, UNSPECIFIED (7) Diabetes Code(s): E11.9 - TYPE 2 DIABETES MELLITUS WITHOUT COMPLICATIONS (8) S/P AVR (aortic valve replacement) Code(s): Z95.2 - PRESENCE OF PROSTHETIC HEART VALVE Assessment/Plan 1. Bronchial asthma 2. Acute on chronic diastolic failure 3. HTN 4. Hypercholesterolemia 5. Anemia 6. Diabetes mellitus 7. AVR PLAN: 1. Continue traffic monitor specialist 2. Echocardiography was reviewed 3. Continue current cardiac medications including Losartan, Metoprolol ER and Amlodipine in addition Hydralazine, uptitrate as necessary 4. Statin therapy 5. Bronchodilator, steroids and empiric antibiotic coverage 6. ASA 81 mg QD 7. DVT prophylaxis 8. DM treatment Jason Giles MD
[2019-09-15] MEDS ORDERED: ATORVASTATIN CA 40 MG TABLET (FP) PO SCH (22:00)
[2019-09-15] MEDS ORDERED: MIRTAZAPINE 15 MG TABLET (FP) PO SCH (22:00)
[2019-09-15] MEDS ORDERED: DONEPEZIL HCL 10 MG TABLET (FP) PO SCH (22:00)
[2019-09-15] MEDS: BUDESONIDE/FORMETEROL FUMARATE 160/4.5 mcg INHALER IH SCH (22:17)
[2019-09-16] MEDS: HEPARIN NA (PORCINE) 5,000 UNITS/ML 1ML VIAL SQ SCH ×2 (06:22→14:00)
[2019-09-16] MEDS: INSULIN (LEVEMIR) 100 UNITS/ML UNITS SQ SCH (06:23)
[2019-09-16] MEDS: INSULIN SLIDING SCALE (NOVOLOG) 1 VIAL SQ SCH ×4 (06:23→17:35)
[2019-09-16 06:36] LABS: BASO % 0.3 % (0-2.0); EOS % 0.3 % (0-4.5); HEMATOCRIT 32.5 % (32.4-45.2); HEMOGLOBIN 10.5 GM/dL (10.7-15.3); LYMPH % 18.9 % (8-40); MCH 21.4 pg (25.7-33.7); MCHC 32.4 g/dl (32.0-36.0); MEAN PLT VOLUME 8.8 fl (7.5-11.1); MONO % 7.3 % (3.8-10.2); NEUT % 73.2 % (42.8-82.8); PLATELET COUNT 317 K/MM3 (134-434); RBC 4.93 M/mm3 (3.60-5.2); RDW 17.1 % (11.6-15.6); WHITE BLOOD COUNT 11.3 K/mm3 (4.0-10.0)
[2019-09-16 07:01] LABS: ALBUMIN 3.2 g/dl (3.4-5.0); BILIRUBIN,TOTAL 0.3 mg/dL (0.2-1); BLOOD UREA NITROGEN 53.3 mg/dL (7-18); CALCIUM 8.9 mg/dL (8.5-10.1); CREATININE 1.3 mg/dL (0.55-1.3); MAGNESIUM 2.7 mg/dL (1.8-2.4); PHOSPHOROUS 5.2 mg/dL (2.5-4.9); POTASSIUM 3.9 mmol/L (3.5-5.1); TOT PROT 6.1 g/dl (6.4-8.2)
[2019-09-16] MEDS: hydrALAZINE HCL 10 MG TABLET PO SCH ×2 (07:57→10:07)
[2019-09-16] MEDS: ALBUTEROL SO4 0.083% IH SOL 2.5 MG/3 ML VIAL.NEB. NEB SCH ×3 (08:20→16:40)
[2019-09-16] MEDS ORDERED: amLODIPine BESYLATE 10 MG TABLET (FP) PO SCH (08:27)
--- NOTE | 2019-09-16 08:59 | PN ---
Teaching Attending Note Name of Resident: Carmen Reynolds ATTENDING PHYSICIAN STATEMENT I saw and evaluated the patient. I reviewed the resident's note and discussed the case with the resident. I agree with the resident's findings and plan as documented. SUBJECTIVE: Patient is feeling better, wants to go home. Vital Signs Temperature 98.5 F 09/16/19 14:00 Pulse Rate 75 09/16/19 14:00 Respiratory Rate 18 09/16/19 10:00 Blood Pressure 142/60 09/16/19 14:00 O2 Sat by Pulse Oximetry (%) 97 09/16/19 09:00 GENERAL: The patient is awake, alert, and fully oriented, in no acute distress. HEAD: Normal with no signs of trauma. EYES: PERRL, extraocular movements intact, sclera anicteric, conjunctiva clear. ENT: Ears normal, oropharynx clear without exudates, moist mucous membranes. NECK: Trachea midline, full range of motion, supple. LUNGS: Breath sounds equal, clear to auscultation bilaterally, no wheezes, no crackles, no accessory muscle use. HEART: Regular rate and rhythm, S1, S2 without murmur, rub or gallop. ABDOMEN: Soft, NT,ND, normoactive bowel sounds, no guarding, no rebound, no hepatosplenomegaly, no masses. EXTREMITIES: 2+ pulses, warm, well-perfused, no edema. NEUROLOGICAL: Cranial nerves II through XII grossly intact. Normal speech, gait not observed. PSYCH: Normal mood, normal affect. SKIN: Warm, dry, normal turgor, no rashes or lesions noted CBCD WBC 11.3 K/mm3 (4.0-10.0) H 09/16/19 06:07 RBC 4.93 M/mm3 (3.60-5.2) 09/16/19 06:07 Hgb 10.5 GM/dL (10.7-15.3) L 09/16/19 06:07 Hct 32.5 % (32.4-45.2) 09/16/19 06:07 MCV 66.0 fl (80-96) L 09/16/19 06:07 MCHC 32.4 g/dl (32.0-36.0) 09/16/19 06:07 RDW 17.1 % (11.6-15.6) H 09/16/19 06:07 Plt Count 317 K/MM3 (134-434) 09/16/19 06:07 MPV 8.8 fl (7.5-11.1) 09/16/19 06:07 CMP Sodium 137 mmol/L (136-145) 09/16/19 06:07 Potassium 3.9 mmol/L (3.5-5.1) 09/16/19 06:07 Chloride 100 mmol/L (98-107) 09/16/19 06:07 Carbon Dioxide 30 mmol/L (21-32) 09/16/19 06:07 Anion Gap 7 MMOL/L (8-16) L 09/16/19 06:07 BUN 53.3 mg/dL (7-18) H 09/16/19 06:07 Creatinine 1.3 mg/dL (0.55-1.3) 09/16/19 06:07 Random Glucose 210 mg/dL (74-106) H 09/16/19 06:07 Calcium 8.9 mg/dL (8.5-10.1) 09/16/19 06:07 Total Bilirubin 0.3 mg/dL (0.2-1) 09/16/19 06:07 AST 15 U/L (15-37) 09/16/19 06:07 ALT 29 U/L (13-61) 09/16/19 06:07 Alkaline Phosphatase 87 U/L (45-117) 09/16/19 06:07 Total Protein 6.1 g/dl (6.4-8.2) L 09/16/19 06:07 Albumin 3.2 g/dl (3.4-5.0) L 09/16/19 06:07 CARDIAC ENZYMES Creatine Kinase 212 U/L (26-192) H 09/12/19 17:20 Troponin I < 0.02 ng/ml (0.00-0.05) 09/14/19 06:20 Current Medications Generic Name Dose Route Start Last Admin Trade Name Freq PRN Reason Stop Dose Admin Albuterol Sulfate 1 amp 09/14/19 16:09 Ventolin 0.083% Nebulizer Soln - NEB Q4H PRN SHORT OF BREATH/WHEEZING Albuterol Sulfate 1 amp 09/14/19 20:00 09/15/19 20:00 Ventolin 0.083% Nebulizer Soln - NEB 1 amp RQID [facility] Administration Amlodipine Besylate 10 mg 09/16/19 08:27 Norvasc - PO DAILY [facility] Aspirin 81 mg 09/15/19 10:00 09/15/19 09:53 Ecotrin - PO 81 mg DAILY [facility] Administration Atorvastatin Calcium 40 mg 09/15/19 22:00 09/15/19 22:17 Lipitor - PO 40 mg HS [facility] Administration Budesonide/Formoterol Fumarate 2 puff 09/15/19 22:00 09/15/19 22:17 Symbicort 160/4.5mcg - IH 2 puff BID [facility] Administration Donepezil HCl 10 mg 09/15/19 22:00 09/15/19 22:17 Aricept - PO 10 mg HS [facility] Administration Heparin Sodium (Porcine) 5,000 unit 09/15/19 06:00 09/16/19 06:22 Heparin - SQ 5,000 unit TID [facility] Administration Hydralazine HCl 10 mg 09/15/19 10:00 09/16/19 07:57 Apresoline - PO 10 mg BID [facility] Administration Ceftriaxone Sodium 1 gm/ 50 mls @ 200 mls/hr 09/14/19 18:00 09/15/19 09:52 Dextrose IVPB 200 mls/hr DAILY [facility] Administration Protocol Insulin Aspart 1 vial 09/15/19 15:53 09/16/19 06:23 Novolog Vial Sliding Scale - SQ 5 units TIDAC [facility] Administration Protocol Insulin Detemir 35 units 09/15/19 07:00 09/16/19 06:23 Levemir Vial SQ 35 units BID@0700,2200 [facility] Administration Losartan Potassium 100 mg 09/15/19 10:00 09/15/19 09:54 Cozaar - PO 100 mg DAILY [facility] Administration Metoprolol Succinate 50 mg 09/15/19 10:00 09/15/19 09:53 Toprol Xl - PO 50 mg DAILY [facility] Administration Mirtazapine 15 mg 09/15/19 22:00 09/15/19 22:17 Remeron - PO 15 mg HS [facility] Administration Polyethylene Glycol 17 gm 09/15/19 12:30 09/15/19 13:06 Miralax (For Daily Use) - PO 17 gm DAILY [facility] Administration Prednisone 40 mg 09/16/19 10:00 Deltasone - PO DAILY [facility] Home Medications Medication Instructions Recorded Aspirin Coated [Ecotrin -] 81 mg PO DAILY 09/13/19 Donepezil HCl [Aricept -] 10 mg PO DAILY 09/13/19 Glimepiride [Glimepiride -] 1 mg PO BID 09/13/19 Mirtazapine [Remeron -] 15 mg PO DAILY 09/13/19 Albuterol Sulfate [Albuterol 2 puff QID 09/14/19 Sulfate Hfa] Budesonide/Formeterol Fumarate 2 puff BID 09/14/19 [SYMBICORT 160/4.5mcg -] Atorvastatin Ca [Lipitor] 40 mg DAILY 09/15/19 Losartan Potassium 100 mg DAILY 09/15/19 Metoprolol Succinate 50 mg DAILY 09/15/19 Albuterol 0.083% Nebulizer Isabelle 1 amp NEB RQID #25 amp 09/16/19 [Ventolin 0.083% Nebulizer Soln -] Amlodipine Besylate [Norvasc -] 10 mg PO DAILY #30 tablet 09/16/19 Aspirin Coated [Ecotrin -] 81 mg PO DAILY tablet.ec 09/16/19 Cefuroxime Axetil [Ceftin -] 250 mg PO BID #6 tablet 09/16/19 Docusate Sodium [Colace -] 100 mg PO BID capsule 09/16/19 Insulin Glargine,Hum.rec.anlog 35 unit SQ BID@0700,2200 #1 vial 09/16/19 [Lantus] Losartan Potassium [Cozaar -] 100 mg PO DAILY #30 tablet 09/16/19 Polyethylene Glycol 3350 [Miralax 17 gm PO DAILY bottle 09/16/19 119 gm Btl -] Prednisone See Taper PO DAILY #21 tablet 09/16/19 Spironolactone [Aldactone -] 25 mg PO DAILY #10 tablet 09/16/19 Microbiology 09/13/19 06:00 Urine - Urine Clean Catch Urine Culture - Final Klebsiella Pneumoniae Assessment and Plan: Patient is an 79yof with Pmhx of DM , HTN, HTN, CAD, AVR, HLP, asthma, s/p CABG , who presented to ED. with worsening SOB. she was found to have HTN emergency. # HTN emergency.BP improved today will discharge her home. continue hydralazine , metoprolol, increased the dose of norvasc to 10mg # Acute diastolic heart failure . Pulm edema due to HTN emergency: echo reviewed , discontinued lasix due to ARAMIS # ARAMIS: 1.4-->1.3 today , can be monitored as an outpatient, encouraged to drink oral fluid. off lasix # Acute Asthma exacerbation , continue tapered dose prednisone. breathing treatments continue at home # UTI: s/p ceftriaxone will continue to 3 more days of ceftin 250mg po bid # T2DM: Patient is on Lantus at home continue as per daughter. # H/o CAD :continue asa ,cont BB , ARB. dc patient home.
[2019-09-16] MEDS ORDERED: DEXTROSE 5%-WATER - 50 ML IVPB ONE (09:17)
[2019-09-16] MEDS ORDERED: cefTRIAXone SODIUM 1 GM VIAL ONE (09:17)
[2019-09-16] MEDS ORDERED: predniSONE 20 MG TABLET (UD) PO SCH (10:00)
[2019-09-16] MEDS: ASPIRIN COATED 81 MG TABLET.EC PO SCH (10:09)
[2019-09-16] MEDS: LOSARTAN POTASSIUM 50 MG TABLET (FP) PO SCH (10:09)
[2019-09-16] MEDS: CEFTRIAXONE 1 GM in DEXTROSE 5%-WATER - 50 ML IVPB SCH (10:09)
[2019-09-16] MEDS: BUDESONIDE/FORMETEROL FUMARATE 160/4.5 mcg INHALER IH SCH (10:17)
[2019-09-16] MEDS: POLYETHYLENE GLYCOL 3350 119 GM BTL PO SCH (10:17)
--- NOTE | 2019-09-16 10:41 | PN ---
Progress Note, Physician History of Present Illness: Dyspnea and LE edema resolving, denies chest pain. - Current Medication List Current Medications: Active Medications Albuterol Sulfate (Ventolin 0.083% Nebulizer Soln -) 1 amp NEB Q4H PRN PRN Reason: SHORT OF BREATH/WHEEZING Albuterol Sulfate (Ventolin 0.083% Nebulizer Soln -) 1 amp NEB RQID [facility] Last Admin: 09/16/19 08:20 Dose: 1 amp Amlodipine Besylate (Norvasc -) 10 mg PO DAILY [facility] Last Admin: 09/16/19 10:09 Dose: 10 mg Aspirin (Ecotrin -) 81 mg PO DAILY [facility] Last Admin: 09/16/19 10:09 Dose: 81 mg Atorvastatin Calcium (Lipitor -) 40 mg PO HS [facility] Last Admin: 09/15/19 22:17 Dose: 40 mg Budesonide/Formoterol Fumarate (Symbicort 160/4.5mcg -) 2 puff IH BID [facility] Last Admin: 09/16/19 10:17 Dose: 2 puff Donepezil HCl (Aricept -) 10 mg PO HS [facility] Last Admin: 09/15/19 22:17 Dose: 10 mg Heparin Sodium (Porcine) (Heparin -) 5,000 unit SQ TID [facility] Last Admin: 09/16/19 06:22 Dose: 5,000 unit Hydralazine HCl (Apresoline -) 10 mg PO BID [facility] Last Admin: 09/16/19 10:07 Dose: Not Given Ceftriaxone Sodium 1 gm/ (Dextrose) 50 mls @ 200 mls/hr IVPB DAILY [facility]; Protocol Last Admin: 09/16/19 10:09 Dose: 200 mls/hr Insulin Aspart (Novolog Vial Sliding Scale -) 1 vial SQ TIDAC [facility]; Protocol Last Admin: 09/16/19 06:23 Dose: 5 units Insulin Detemir (Levemir Vial) 35 units SQ BID@0700,2200 [facility] Last Admin: 09/16/19 06:23 Dose: 35 units Losartan Potassium (Cozaar -) 100 mg PO DAILY [facility] Last Admin: 09/16/19 10:09 Dose: 100 mg Metoprolol Succinate (Toprol Xl -) 50 mg PO DAILY [facility] Last Admin: 09/16/19 10:09 Dose: 50 mg Mirtazapine (Remeron -) 15 mg PO HS [facility] Last Admin: 09/15/19 22:17 Dose: 15 mg Polyethylene Glycol (Miralax (For Daily Use) -) 17 gm PO DAILY [facility] Last Admin: 09/16/19 10:17 Dose: 17 gm Prednisone (Deltasone -) 40 mg PO DAILY [facility] Last Admin: 09/16/19 10:15 Dose: 40 mg - Objective Vital Signs: Vital Signs Temperature 97.6 F 09/16/19 06:00 Pulse Rate 74 09/16/19 06:00 Respiratory Rate 20 09/16/19 06:00 Blood Pressure 181/80 H 09/16/19 06:00 O2 Sat by Pulse Oximetry (%) 98 09/15/19 23:00 Constitutional: Yes: No Distress, Calm Neck: Yes: Supple Cardiovascular: Yes: Regular Rate and Rhythm, Murmur (2/6 SM) Respiratory: Yes: Regular, Diminished Gastrointestinal: Yes: Normal Bowel Sounds, Soft, Abdomen, Obese Edema: Yes Edema: LLE: Trace, RLE: Trace Labs: CBC, BMP 09/16/19 06:07 09/16/19 06:07 - ....Imaging Chest X-ray: Report Reviewed (Improved congestion) Problem List - Problems (1) Acute on chronic diastolic (congestive) heart failure Code(s): I50.33 - ACUTE ON CHRONIC DIASTOLIC (CONGESTIVE) HEART FAILURE (2) Bronchial asthma Code(s): J45.909 - UNSPECIFIED ASTHMA, UNCOMPLICATED Qualifiers: Asthma severity: unspecified severity (3) Hyperlipidemia Code(s): E78.5 - HYPERLIPIDEMIA, UNSPECIFIED (4) Hypertensive urgency Code(s): I16.0 - HYPERTENSIVE URGENCY (5) Diabetes Code(s): E11.9 - TYPE 2 DIABETES MELLITUS WITHOUT COMPLICATIONS Qualifiers: Diabetes mellitus type: type 2 (6) S/P AVR (aortic valve replacement) Code(s): Z95.2 - PRESENCE OF PROSTHETIC HEART VALVE Assessment/Plan 09/14/2019 Echocardiography normal LVEF 55-60%, mild cLVH with bioprosthetic aortic valve, mild AR, MG 14 mmHg and pseudonormal mitral inflow and elevated filling pressure RVSP 31 mmHg 1. Bronchial asthma 2. Acute on chronic diastolic failure improving 3. HTN heart disease 4. Hypercholesterolemia 5. Anemia 6. Diabetes mellitus 7. s/p bioAVR 8. Acute on CKD resolving PLAN: 1. Continue potline monitor 2. Continue current cardiac medications including Losartan 100 qd, Metoprolol ER 50 qd and Amlodipine 10 qd, Lipitor 40 qd, change Hydralazine 10 bid to Aldactone 25 qd, uptitrate as necessary 3. Bronchodilator, oral steroids and empiric antibiotic coverage 4. ASA 81 mg QD 5. DVT prophylaxis 6. DM treatment
[2019-09-16] MEDS ORDERED: SPIRONOLACTONE 25 MG TABLET (FP) PO SCH (11:00)
[2019-09-16 11:11] LABS: ANISOCYTOSIS 3+; MACROCYTOSIS 0; PLATELET ESTIMATE NORMAL
--- NOTE | 2019-09-16 12:13 | PN ---
Progress Note, Physician History of Present Illness: PULMONARY ALERT,FEELING BETTER,SOB IMPROVED,LESS COUGH - Current Medication List Current Medications: Active Medications Albuterol Sulfate (Ventolin 0.083% Nebulizer Soln -) 1 amp NEB Q4H PRN PRN Reason: SHORT OF BREATH/WHEEZING Albuterol Sulfate (Ventolin 0.083% Nebulizer Soln -) 1 amp NEB RQID [facility] Last Admin: 09/16/19 08:20 Dose: 1 amp Amlodipine Besylate (Norvasc -) 10 mg PO DAILY [facility] Last Admin: 09/16/19 10:09 Dose: 10 mg Aspirin (Ecotrin -) 81 mg PO DAILY [facility] Last Admin: 09/16/19 10:09 Dose: 81 mg Atorvastatin Calcium (Lipitor -) 40 mg PO HS [facility] Last Admin: 09/15/19 22:17 Dose: 40 mg Budesonide/Formoterol Fumarate (Symbicort 160/4.5mcg -) 2 puff IH BID [facility] Last Admin: 09/16/19 10:17 Dose: 2 puff Donepezil HCl (Aricept -) 10 mg PO [facility] Last Admin: 09/15/19 22:17 Dose: 10 mg Heparin Sodium (Porcine) (Heparin -) 5,000 unit SQ TID [facility] Last Admin: 09/16/19 06:22 Dose: 5,000 unit Ceftriaxone Sodium 1 gm/ (Dextrose) 50 mls @ 200 mls/hr IVPB DAILY [facility]; Protocol Last Admin: 09/16/19 10:09 Dose: 200 mls/hr Insulin Aspart (Novolog Vial Sliding Scale -) 1 vial SQ TIDAC [facility]; Protocol Last Admin: 09/16/19 06:23 Dose: 5 units Insulin Detemir (Levemir Vial) 35 units SQ BID@0700,2200 [facility] Last Admin: 09/16/19 06:23 Dose: 35 units Losartan Potassium (Cozaar -) 100 mg PO DAILY [facility] Last Admin: 09/16/19 10:09 Dose: 100 mg Metoprolol Succinate (Toprol Xl -) 50 mg PO DAILY [facility] Last Admin: 09/16/19 10:09 Dose: 50 mg Mirtazapine (Remeron -) 15 mg PO HS [facility] Last Admin: 09/15/19 22:17 Dose: 15 mg Polyethylene Glycol (Miralax (For Daily Use) -) 17 gm PO DAILY [facility] Last Admin: 09/16/19 10:17 Dose: 17 gm Prednisone (Deltasone -) 40 mg PO DAILY [facility] Last Admin: 09/16/19 10:15 Dose: 40 mg Spironolactone (Aldactone -) 25 mg PO DAILY [facility] - Objective Vital Signs: Vital Signs Temperature 97.6 F 09/16/19 06:00 Pulse Rate 74 09/16/19 06:00 Respiratory Rate 20 09/16/19 06:00 Blood Pressure 181/80 H 09/16/19 06:00 O2 Sat by Pulse Oximetry (%) 98 09/15/19 23:00 Constitutional: Yes: Well Nourished, Calm Eyes: Yes: WNL HENT: Yes: WNL Neck: Yes: WNL Cardiovascular: Yes: Regular Rate and Rhythm, S1, S2 Respiratory: Yes: Wheezes (few wheezes) Gastrointestinal: Yes: Normal Bowel Sounds, Soft Extremities: Yes: WNL Edema: No Labs: CBC, BMP 09/16/19 06:07 09/16/19 06:07 Problem List - Problems (1) Acute respiratory distress Code(s): R06.03 - ACUTE RESPIRATORY DISTRESS (2) Bronchial asthma Code(s): J45.909 - UNSPECIFIED ASTHMA, UNCOMPLICATED Qualifiers: Asthma severity: unspecified severity (3) Hypertensive urgency Code(s): I16.0 - HYPERTENSIVE URGENCY (4) Diabetes Code(s): E11.9 - TYPE 2 DIABETES MELLITUS WITHOUT COMPLICATIONS Qualifiers: Diabetes mellitus type: type 2 (5) S/P AVR (aortic valve replacement) Code(s): Z95.2 - PRESENCE OF PROSTHETIC HEART VALVE (6) Asthma exacerbation Code(s): J45.901 - UNSPECIFIED ASTHMA WITH (ACUTE) EXACERBATION Assessment/Plan A/P Hypertensive Urgency Acute on Chronic Diastolic Heart Failure Acute Asthma Exacerbation improved CAD s/p CABG DM HTN Hyperlipidemia - Prednisone - inhaled bronchodilators - glucose control while on systemic steroids - DVT prophylaxis DR MA
[2019-09-16] MEDS ORDERED: DOCUSATE SODIUM 100 MG CAPSULE (FP) PO SCH (14:23)
[2019-09-16 14:36] VITALS: BP 142/60; PULSE 75; TEMP 98.5
--- NOTE | 2019-09-16 14:45 | PN ---
Physical Exam: SUBJECTIVE: Patient seen and examined. She reports increased shortness of breath and cough. She denies chest pain. She also reports stomach fullness. OBJECTIVE: Vital Signs Period Temp Pulse Resp BP Sys/Escamilla Pulse Ox Last 24 Hr 97.6 F-99.2 F 74-94 18-20 149-186/63-82 94-98 GENERAL: The patient is awake, alert, and fully oriented, in no distress. HEAD: Normal with no signs of trauma. EYES: PERRL, extraocular movements intact, conjunctiva clear. ENT: Ears normal, nares patent, moist mucous membranes. NECK: Trachea midline, full range of motion LUNGS: Clear to auscultation HEART: Regular rate and rhythm, 3/6 systolic murmur ABDOMEN: Soft, mildly tender to palpation, nondistended, normoactive bowel sounds EXTREMITIES: Warm, well-perfused, trace LE edema. NEUROLOGICAL: Cranial nerves II through XII grossly intact. Normal speech. PSYCH: Normal mood, normal affect. SKIN: Warm, dry, normal turgor tele: few PVCs Laboratory Results - last 24 hr 09/15/19 09/15/19 09/16/19 17:04 22:15 06:07 WBC 11.3 H RBC 4.93 Hgb 10.5 L Hct 32.5 MCV 66.0 L MCH 21.4 L MCHC 32.4 RDW 17.1 H Plt Count 317 MPV 8.8 Absolute Neuts (auto) 8.3 H Neutrophils % 73.2 Lymphocytes % 18.9 Monocytes % 7.3 Eosinophils % 0.3 D Basophils % 0.3 Nucleated RBC % 0 Hypochromia 0 Platelet Estimate Normal Polychromasia 1+ Poikilocytosis 2+ Anisocytosis 3+ Microcytosis 3+ Macrocytosis 0 Schistocytes 2+ Sodium Potassium Chloride Carbon Dioxide Anion Gap BUN Creatinine Est GFR (CKD-EPI)AfAm Est GFR (CKD-EPI)NonAf POC Glucometer 392 315 Random Glucose Calcium Phosphorus Magnesium Total Bilirubin AST ALT Alkaline Phosphatase Total Protein Albumin 09/16/19 09/16/19 09/16/19 06:07 06:08 11:54 WBC RBC Hgb Hct MCV MCH MCHC RDW Plt Count MPV Absolute Neuts (auto) Neutrophils % Lymphocytes % Monocytes % Eosinophils % Basophils % Nucleated RBC % Hypochromia Platelet Estimate Polychromasia Poikilocytosis Anisocytosis Microcytosis Macrocytosis Schistocytes Sodium 137 Potassium 3.9 Chloride 100 Carbon Dioxide 30 Anion Gap 7 L BUN 53.3 H Creatinine 1.3 Est GFR (CKD-EPI)AfAm 44.56 Est GFR (CKD-EPI)NonAf 38.44 POC Glucometer 205 246 Random Glucose 210 H Calcium 8.9 Phosphorus 5.2 H Magnesium 2.7 H Total Bilirubin 0.3 AST 15 ALT 29 Alkaline Phosphatase 87 Total Protein 6.1 L Albumin 3.2 L Active Medications Generic Name Dose Route Start Last Admin Trade Name Freq PRN Reason Stop Dose Admin Albuterol Sulfate 1 amp 09/14/19 16:09 Ventolin 0.083% Nebulizer Soln - NEB Q4H PRN SHORT OF BREATH/WHEEZING Albuterol Sulfate 1 amp 09/14/19 20:00 09/16/19 12:55 Ventolin 0.083% Nebulizer Soln - NEB 1 amp RQID [facility] Administration Amlodipine Besylate 10 mg 09/16/19 08:27 09/16/19 10:09 Norvasc - PO 10 mg DAILY [facility] Administration Aspirin 81 mg 09/15/19 10:00 09/16/19 10:09 Ecotrin - PO 81 mg DAILY [facility] Administration Atorvastatin Calcium 40 mg 09/15/19 22:00 09/15/19 22:17 Lipitor - PO 40 mg HS [facility] Administration Budesonide/Formoterol Fumarate 2 puff 09/15/19 22:00 09/16/19 10:17 Symbicort 160/4.5mcg - IH 2 puff BID [facility] Administration Donepezil HCl 10 mg 09/15/19 22:00 09/15/19 22:17 Aricept - PO 10 mg HS [facility] Administration Heparin Sodium (Porcine) 5,000 unit 09/15/19 06:00 09/16/19 06:22 Heparin - SQ 5,000 unit TID [facility] Administration Ceftriaxone Sodium 1 gm/ 50 mls @ 200 mls/hr 09/14/19 18:00 09/16/19 10:09 Dextrose IVPB 200 mls/hr DAILY [facility] Administration Protocol Insulin Aspart 1 vial 09/15/19 15:53 09/16/19 13:00 Novolog Vial Sliding Scale - SQ 5 units TIDAC [facility] Administration Protocol Insulin Detemir 35 units 09/15/19 07:00 09/16/19 06:23 Levemir Vial SQ 35 units BID@0700,2200 [facility] Administration Losartan Potassium 100 mg 09/15/19 10:00 09/16/19 10:09 Cozaar - PO 100 mg DAILY [facility] Administration Metoprolol Succinate 50 mg 09/15/19 10:00 09/16/19 10:09 Toprol Xl - PO 50 mg DAILY [facility] Administration Mirtazapine 15 mg 09/15/19 22:00 09/15/19 22:17 Remeron - PO 15 mg HS [facility] Administration Polyethylene Glycol 17 gm 09/15/19 12:30 09/16/19 10:17 Miralax (For Daily Use) - PO 17 gm DAILY [facility] Administration Prednisone 40 mg 09/16/19 10:00 09/16/19 10:15 Deltasone - PO 40 mg DAILY [facility] Administration Spironolactone 25 mg 09/16/19 11:00 09/16/19 12:11 Aldactone - PO 25 mg DAILY [facility] Administration ASSESSMENT/PLAN: Ms. Herrera is an 79y/o female with severe asthma, HTN, HLD, DM, CAD s/p 1 stent, and aortic valve replacement (2014) who presents with progressive shortness of breath. She was found to be hypertensive at presentation with pulmonary edema. #hypertensive emergency with pulmonary edema and proteinuria -off Lasix -spironolactone 25mg daily -amlodipine 10mg daily -losartan 100mg daily -Toprol 50mg daily -daily weights -cards following #severe asthma -prednisone 40mg daily -duo-nebs Q4H -Symbicort BID -pulm following #UTI -urine cx Klebsiella -ceftriaxone 1g daily (09/14) #constipation -miralax -colace #non-IDDM -UA + for glucose -Lantus 35U BID -BGMs -SSI #HLD LDL 109 -atorvastatin 40mg daily #CAD -ASA #dementia -Aricept -Remeron DVT Ppx heparin FEN PO fluids monitor labs sodium-controlled diet dispo tele, monitor pressures Visit type - Emergency Visit Emergency Visit: Yes ED Registration Date: 09/12/19 Care time: The patient presented to the Emergency Department on the above date and was hospitalized for further evaluation of their emergent condition. - New Patient This patient is new to me today: No - Critical Care Critical Care patient: No - Discharge Referral Referred to [facility] No ATTENDING PHYSICIAN STATEMENT I saw and evaluated the patient. I reviewed the resident's note and discussed the case with the resident. I agree with the resident's findings and plan as documented. SUBJECTIVE: OBJECTIVE: ASSESSMENT AND PLAN:
--- NOTE | 2019-09-16 16:57 | DS ---
Physical Exam: SUBJECTIVE: Patient seen and examined. She reports increased shortness of breath and cough. She denies chest pain. She also reports stomach fullness. OBJECTIVE: Vital Signs Period Temp Pulse Resp BP Sys/Escamilla Pulse Ox Last 24 Hr 97.6 F-99.2 F 74-94 18-20 142-186/60-82 94-98 PHYSICAL EXAM GENERAL: The patient is awake, alert, and fully oriented, in no distress. HEAD: Normal with no signs of trauma. EYES: PERRL, extraocular movements intact, conjunctiva clear. ENT: Ears normal, nares patent, moist mucous membranes. NECK: Trachea midline, full range of motion LUNGS: Clear to auscultation HEART: Regular rate and rhythm, 3/6 systolic murmur ABDOMEN: Soft, mildly tender to palpation, nondistended, normoactive bowel sounds EXTREMITIES: Warm, well-perfused, trace LE edema. NEUROLOGICAL: Cranial nerves II through XII grossly intact. Normal speech. PSYCH: Normal mood, normal affect. SKIN: Warm, dry, normal turgor tele: few PVCs LABS Laboratory Results - last 24 hr 09/15/19 09/15/19 09/16/19 17:04 22:15 06:07 WBC 11.3 H RBC 4.93 Hgb 10.5 L Hct 32.5 MCV 66.0 L MCH 21.4 L MCHC 32.4 RDW 17.1 H Plt Count 317 MPV 8.8 Absolute Neuts (auto) 8.3 H Neutrophils % 73.2 Lymphocytes % 18.9 Monocytes % 7.3 Eosinophils % 0.3 D Basophils % 0.3 Nucleated RBC % 0 Hypochromia 0 Platelet Estimate Normal Polychromasia 1+ Poikilocytosis 2+ Anisocytosis 3+ Microcytosis 3+ Macrocytosis 0 Schistocytes 2+ Sodium Potassium Chloride Carbon Dioxide Anion Gap BUN Creatinine Est GFR (CKD-EPI)AfAm Est GFR (CKD-EPI)NonAf POC Glucometer 392 315 Random Glucose Calcium Phosphorus Magnesium Total Bilirubin AST ALT Alkaline Phosphatase Total Protein Albumin 09/16/19 09/16/19 09/16/19 06:07 06:08 11:54 WBC RBC Hgb Hct MCV MCH MCHC RDW Plt Count MPV Absolute Neuts (auto) Neutrophils % Lymphocytes % Monocytes % Eosinophils % Basophils % Nucleated RBC % Hypochromia Platelet Estimate Polychromasia Poikilocytosis Anisocytosis Microcytosis Macrocytosis Schistocytes Sodium 137 Potassium 3.9 Chloride 100 Carbon Dioxide 30 Anion Gap 7 L BUN 53.3 H Creatinine 1.3 Est GFR (CKD-EPI)AfAm 44.56 Est GFR (CKD-EPI)NonAf 38.44 POC Glucometer 205 246 Random Glucose 210 H Calcium 8.9 Phosphorus 5.2 H Magnesium 2.7 H Total Bilirubin 0.3 AST 15 ALT 29 Alkaline Phosphatase 87 Total Protein 6.1 L Albumin 3.2 L 09/16/19 16:47 WBC RBC Hgb Hct MCV MCH MCHC RDW Plt Count MPV Absolute Neuts (auto) Neutrophils % Lymphocytes % Monocytes % Eosinophils % Basophils % Nucleated RBC % Hypochromia Platelet Estimate Polychromasia Poikilocytosis Anisocytosis Microcytosis Macrocytosis Schistocytes Sodium Potassium Chloride Carbon Dioxide Anion Gap BUN Creatinine Est GFR (CKD-EPI)AfAm Est GFR (CKD-EPI)NonAf POC Glucometer 283 Random Glucose Calcium Phosphorus Magnesium Total Bilirubin AST ALT Alkaline Phosphatase Total Protein Albumin HOSPITAL COURSE: Ms. Herrera is an 79y/o female with severe asthma, HTN, HLD, DM, CAD s/p 1 stent, and aortic valve replacement (2014) who presents with progressive shortness of breath. She was found to be hypertensive at presentation (SBP 230) with pulmonary edema on CXR and proteinuria as well as ARAMIS. She was given decadron, duo-nebs, Mg, Lasix, and placed on BiPAP. Nitro drip started for hypertensive emergency and transferred to ICU. She was given solu-medrol BID and taken off BiPAP. Amlodipine was increased during the course from 2.5 to 10mg and benazepril was stopped. Hydralazine was given briefly but discontinued. Spironolactone 25mg was initiated. Pressures improved, nitro stopped, and pt was transferred to [facility] with few PVCs noted. Pressure did vary during course but was much improved. Pt also complained of dysuria and 1 day of hematuria and urine cx grew klebsiella. She was given 3 days of ceftriaxone. Lantus 35U BID was given to control BG in addition to SSI. LDL was 109 and pt was started on atorvastatin 40mg (family unsure if she was recently taking it). She was discharged on new dose of amlodipine, new rx spironolactone, prednisone 6 day taper, albuterol, and instructed to eat a low salt and fat diet. Metformin combo was held. She is to follow up with PCP and endocrine soon to ensure sugar is controlled, especially after prednisone and check Cr. Date of Admission:09/12/19 Date of Discharge: 09/16/19 Minutes to complete discharge: 35 Discharge Summary Problems reviewed: Yes Reason For Visit: HYPERTENSIVE URGENCY,ACUTE ON CHRONIC CONGESTIVE Current Active Problems Acute on chronic diastolic (congestive) heart failure (Acute) Acute respiratory distress (Acute) Asthma exacerbation (Acute) Bronchial asthma (Acute) CHF exacerbation (Acute) HTN (hypertension) (Acute) Hyperlipidemia (Acute) Hypertensive urgency (Acute) Microcytic anemia (Acute) Condition: Improved - Instructions Diet, Activity, Other Instructions: YOUR VISIT: You were admitted to the hospital for high blood pressure and trouble breathing. You were given medications to control your blood pressure and given steroids and breathing treatments for your breathing. MEDICATIONS: STOP amlodipine/benazepril 2.5/10, instead we added Amlodipine 10mg po daily( increased the dose) START these medications tomorrow (09/16) amlodipine 10mg once a day spironolactone 25mg once a day prednisone 30mg (09/16) 25mg (09/17) 20mg (09/18) 15mg (09/19) 10mg (09/20) 5mg (09/21) Take prednisone with food. Monitor your blood sugar because it could increase with this medication. Continue the rest of your home medications as directed. Increase oral intake to improve your kidney function. FOLLOW UP: Dr. Kessler, primary care, [address] Mancuso, endocrinology, within 1 week of discharge to check your blood sugar. Dr. Potter, pulmonology, [address] Philip, nephrology, 1 week after discharge to check your kidney function. Dr. Zuñiga, cardiology, 1 week after discharge. OTHER INSTRUCTIONS: Eat a diet low in salt and fat. Drink enough fluid to improve your kidney function. Have the level of kidney function repeated in a week period with your primary doctor if your kidney function continues to rise, need to change your Metformin medication to another medication. Return to the emergency room or call 911 if you have chest pain, trouble breathing, dizziness, vomiting, or fever above 101. Referrals: Landen Potter MD [Staff Physician] - 1 Week Ayan Kessler MD [Primary Care Provider] - Isabelle Mancuso MD [Non Staff, Medical] - 1 Week Marylin Philip MD [Staff Physician] - 1 Week Kenn Zuñiga MD [Staff Physician] - 1 Week Disposition: VNS/HOME HEALTH CARE - Home Medications Comprehensive Discharge Medication List: Ambulatory Orders Aspirin Coated [Ecotrin -] 81 mg PO DAILY 09/13/19 Donepezil HCl [Aricept -] 10 mg PO DAILY 09/13/19 Glimepiride [Glimepiride -] 1 mg PO BID 09/13/19 Mirtazapine [Remeron -] 15 mg PO DAILY 09/13/19 Albuterol Sulfate [Albuterol Sulfate Hfa] 2 puff QID 09/14/19 Budesonide/Formeterol Fumarate [SYMBICORT 160/4.5mcg -] 2 puff BID 09/14/19 Atorvastatin Ca [Lipitor] 40 mg DAILY 09/15/19 Losartan Potassium 100 mg DAILY 09/15/19 Metoprolol Succinate 50 mg DAILY 09/15/19 Albuterol 0.083% Nebulizer Isabelle [Ventolin 0.083% Nebulizer Soln -] 1 amp NEB RQID #25 amp 09/16/19 Amlodipine Besylate [Norvasc -] 10 mg PO DAILY #30 tablet 09/16/19 Aspirin Coated [Ecotrin -] 81 mg PO DAILY tablet.ec 09/16/19 Cefuroxime Axetil [Ceftin -] 250 mg PO BID #6 tablet 09/16/19 Docusate Sodium [Colace -] 100 mg PO BID capsule 09/16/19 Insulin Glargine,Hum.rec.anlog [Lantus] 35 unit SQ BID@0700,2200 #1 vial Losartan Potassium [Cozaar -] 100 mg PO DAILY #30 tablet 09/16/19 Polyethylene Glycol 3350 [Miralax 119 gm Btl -] 17 gm PO DAILY bottle 09/16/19 Prednisone See Taper PO DAILY #21 tablet 09/16/19 Spironolactone [Aldactone -] 25 mg PO DAILY #10 tablet 09/16/19 This patient is new to me today: No Emergency Visit: Yes ED Registration Date: 09/12/19 Care time: The patient presented to the Emergency Department on the above date and was hospitalized for further evaluation of their emergent condition. Critical Care patient: No - Discharge Referral Referred to [facility] No ATTENDING PHYSICIAN STATEMENT I saw and evaluated the patient. I reviewed the resident's note and discussed the case with the resident. I agree with the resident's findings and plan as documented. SUBJECTIVE: OBJECTIVE: ASSESSMENT AND PLAN:
[2019-09-16] MEDS ORDERED: CEFUROXIME AXETIL 250 MG TABLET PO SCH (22:00)
== END 2019-09-16 18:34 | disposition home health service (06) | DRG 291 ==
LOC: JER 16:57 → JERBED 20:56 → JICU 23:44 → J4W 09-14 22:37
PROVIDERS: ADMIT Internal Medicine; ATTEND Internal Medicine
DX: I11.0 Hypertensive heart disease with heart failure (principal); J96.00 Acute respiratory failure, unspecified whether with hypoxia or hypercapnia; I16.1 Hypertensive emergency; N39.0 Urinary tract infection, site not specified; N17.9 Acute kidney failure, unspecified; J45.901 Unspecified asthma with (acute) exacerbation; I50.33 Acute on chronic diastolic (congestive) heart failure; E78.5 Hyperlipidemia, unspecified; I25.10 Atherosclerotic heart disease of native coronary artery without angina pectoris; Z95.2 Presence of prosthetic heart valve; Z79.84 Long term (current) use of oral hypoglycemic drugs; E11.65 Type 2 diabetes mellitus with hyperglycemia; D50.9 Iron deficiency anemia, unspecified; F03.90 Unspecified dementia, unspecified severity, without behavioral disturbance, psychotic disturbance, mood disturbance, and anxiety; K59.00 Constipation, unspecified; B96.1 Klebsiella pneumoniae [K. pneumoniae] as the cause of diseases classified elsewhere; R31.9 Hematuria, unspecified
CPT/HCPCS: 36415; 36600; 71045-TC-FY; 80048; 80053; 80061; 81003; 82375; 82550; 82553; 82803; 82962; 83050; 83721; 83735; 83880; 84100; 84484; 85025; 85027; 87086; 87186; 93005; 93010; 93306-TC; 94640; 94660; 99285-25; J1644

== ENCOUNTER 2020-04-30 14:43 | Inpatient (IN) | payer OTHER ==
[2020-04-30] MEDS ORDERED: ALBUTEROL SO4 2.5/IPRATROPIUM 0.5 INH SOL 3 ML VIAL.NEB. NEB ONE ×2 (15:03→16:00)
[2020-04-30] MEDS ORDERED: methylPREDNISolone NA SUCC 125 MG/2 ML VIAL IVPUSH ONE (15:03)
--- NOTE | 2020-04-30 15:06 | PDOC ---
History of Present Illness - General Chief Complaint: Chest Pain Stated Complaint: CHEST PAIN, S,O,B, VOMITING Time Seen by Provider: 04/30/20 15:06 - History of Present Illness Initial Comments: 04/30/20 15:07 Pt is an 79 yo F, with PMH of HTN, HLD, CHF (EF 55-60%), CAD (s/p CABG, x1 stent, aortic valve replacement), DM, asthma, who is presenting via EMS from home for chest pain and SOB. Pt states she has had a increased cough with productive white frothy sputum, and SOB starting last night. Pt tried her albuterol treatments at home with minimal relief, so called EMS today. Pt endorses active chest pain midsternum, dull in nature, on and off, 8/10 in pain scale. worse with changes in position, took all the home meds as prescribed. She also complains of N/V NBNB x3, dizziness. She complains of mild pain in the flanks and mid danika that started with coughing. Pt denies any fevers/chills, headache, vision changes, abdominal pain, urinary symptoms, diarrhea/constipation, or leg swelling from baseline. Allergies: NKDA PCP: Dr. Kessler ([facility]) Cards: Dr. Lynn. Social: Pt denies any cigarette, alcohol, or drug use. Pt denies any recent travel or known sick contacts. Surgical: CABG, Family: no relevant history. ROS GENERAL/CONSTITUTIONAL: No fever, no lethargy HEAD, EYES, EARS, NOSE AND THROAT: No eye discharge. No ear pain or discharge. No sore throat. CARDIOVASCULAR: No chest pain. RESPIRATORY: No cough, no wheezing. GASTROINTESTINAL: No pain, nausea, vomiting, diarrhea or constipation. GENITOURINARY: No dysuria, no change in urine output MUSCULOSKELETAL: No joint pain. No neck or back pain. SKIN: No rash NEUROLOGIC: No headache, loss of consciousness, irritability. ENDOCRINE: No increased thirst. No abnormal weight change. ALLERGIC/IMMUNOLOGIC: No hives or skin allergy PE GENERAL: Awake, alert, and appropriately interactive, morbidly obese. EYES: PERRLA, clear conjunctiva NOSE: Nose is clear without discharge EARS: EACs and TMs are normal THROAT: Moist mucosa, oropharynx is clear without erythema or exudates, NECK: Supple, no adenopathy, no meningismus CHEST: Diminshed breath sounds. HEART: Regular rhythm, normal S1 and S2, no murmurs ABDOMEN: Soft and nontender with normal bowel sounds, no organomegaly, no mass, no rebound, no guarding EXTREMITIES: Normal inspection, Normal range of motion, no edema. No clubbing or cyanosis. NEURO: Behavior normal for age, Cranial nerves II through XII grossly intact., normal tone SKIN: Unremarkable, no rash, no swelling, no bruising, no signs of injury 04/30/20 17:21 Past History - Medical History Allergies/Adverse Reactions: Allergies Allergy/AdvReac Type Severity Reaction Status Date / Time No Known Allergies Allergy Verified 04/30/20 14:57 Home Medications: Ambulatory Orders Atorvastatin Ca [Lipitor] 40 mg DAILY 09/15/19 Albuterol 0.083% Nebulizer Isabelle [Ventolin 0.083% Nebulizer Soln -] 1 amp NEB RQID #25 amp 09/16/19 Insulin Glargine,Hum.rec.anlog [Lantus] 35 unit SQ BID@0700,2200 #1 vial 09/16/19 Budesonide/Formeterol Fumarate [SYMBICORT 160/4.5mcg -] 2 inh PO BID 02/12/20 Amlodipine Besylate [Norvasc -] 10 mg PO DAILY #30 tablet 02/18/20 Donepezil HCl [Aricept -] 10 mg PO DAILY 02/18/20 Empagliflozin [Jardiance] 10 mg PO DAILY 02/18/20 Furosemide [Lasix -] 40 mg PO DAILY 02/18/20 Losartan Potassium 100 mg PO DAILY 02/18/20 Metoprolol Succinate [Toprol Xl] 50 mg PO DAILY 02/18/20 Mirtazapine 15 mg PO DAILY 02/18/20 Spironolactone [Aldactone] 25 mg PO DAILY #30 tablet 02/18/20 predniSONE [Deltasone -] See Taper PO ASDIR #30 tab 02/18/20 Anemia: Yes Asthma: Yes Cancer: No Cardiac Disorders: Yes (aortic valve replacement, CAD s/p stent placement) CVA: No COPD: No CHF: Yes DVT: No Dementia: No Diabetes: Yes (IDDM) GI Disorders: Yes (GERD) Disorders: No HTN: Yes Hypercholesterolemia: Yes Liver Disease: No Seizures: No Thyroid Disease: No - Surgical History Abdominal Surgery: No Appendectomy: No Cardiac Surgery: Yes (aortic valve replacement) Cholecystectomy: Yes GI Surgery: Yes (cholecystectomy) Lung Surgery: No Neurologic Surgery: No Orthopedic Surgery: Yes (right shoulder) - Immunization History Immunization Up to Date: No - Psycho-Social/Smoking History Smoking History: Never smoked Have you smoked in the past 12 months: No Cigars Per Day: 0 Information on smoking cessation initiated: No - Substance Abuse Hx (Audit-C & DAST Scrn) How often the patient has a drink containing alcohol: Never Score: In Men: 4 or > Positive; In Women: 3 or > Positive: 0 Screen Result (Pos requires Nsg. Audit-10AR): Negative In the last yr the pt used illegal drug/Rx for NonMed reason: No Score: Yes response is considered Positive: 0 Screen Result (Positive result requires Nsg. DAST-10): Negative *Physical Exam - Vital Signs Last Vital Signs Temp Pulse Resp BP Pulse Ox 97 F L 78 16 160/58 L 100 04/30/20 14:57 04/30/20 14:57 04/30/20 14:57 04/30/20 14:57 04/30/20 14:57 ED Treatment Course - LABORATORY CBC & Chemistry Diagram: 04/30/20 16:10 04/30/20 16:10 Medical Decision Making - Medical Decision Making 04/30/20 19:39 EKG 77, normal sinua rthym, left axis deviation, qTC 463, no ST elevation changes. Most likely asthma exacebation, could be CHF exacerbation. Given duoneb and patient felt better. Gave steroid dose. Lab showed elevated BNP, WBC 10.6 troponin is negative. Patient was reassessed, still complaint of a bit of chest pain. Breathing is improved drastically. Xray show no infiltrate. MBMD sent, admitted under Dr. Garcia for tele obs. 04/30/20 19:43 Discharge - Discharge Information Problems reviewed: Yes Clinical Impression/Diagnosis: Asthma exacerbation, Diabetes HTN (hypertension) Qualifiers: Hypertension type: unspecified Qualified Code(s): I10 - Essential (primary) hypertension Condition: Stable - Admission Yes - Follow up/Referral - Patient Discharge Instructions - Post Discharge Activity
[2020-04-30] MEDS ORDERED: methylPREDNISolone NA SUCC 125 MG/2 ML VIAL ONE (16:00)
--- NOTE | 2020-04-30 16:28 | PDOC ---
Documentation entered by Dejon Topete SCRIBE, acting as scribe for Anjel Vela MD. Anjel Vela MD: This documentation has been prepared by the Yoselyn rivas Aaron, SCRIBE, under my direction and personally reviewed by me in its entirety. I confirm that the documentation accurately reflects all work, treatment, procedures, and medical decision making performed by me. Attending Attestation - Resident Resident Name: Zoltan Forbes - ED Attending Attestation I have performed the following: I have examined & evaluated the patient, The case was reviewed & discussed with the resident, I agree w/resident's findings & plan, Exceptions are as noted - HPI HPI: 04/30/20 16:08 The patient is an 79 year old female with a significant PMH of HTN, HLD, CHF, CAD, DM, and asthma who presents to the emergency department BIBA for chest pain, SOB, and vomiting that began last night. Patient describes a progressively worsening productive cough with white frothy sputum. Patient administered albuterol prior to EMS txp. Patient endorses dull intermittent 8/10 mid sternum pain, worsened by change in position. Patient has had 3x ep of NBNB emesis and endorses flank and mid back pain accompanying cough. The patient denies fever, chills, headache, abdominal changes, urinary changes, diarrhea, constipation or any other symptoms. Allergies: NKDA Past surgical history: CABG, PCP: Dr. Kessler ([facility]) - Physicial Exam PE: 04/30/20 16:30 See resident exam - Medical Decision Making 04/30/20 16:31 80 F with SOB. Will evaluate for CHF. Also trial nebs and steroids given h/o asthma. - labs, trop, BNP - CXR - Nebs, steroids Discharge - Discharge Information Problems reviewed: Yes Clinical Impression/Diagnosis: Asthma exacerbation, Diabetes HTN (hypertension) Qualifiers: Hypertension type: unspecified Qualified Code(s): I10 - Essential (primary) hypertension Condition: Stable Disposition: VNS/HOME HEALTH CARE - Follow up/Referral - Patient Discharge Instructions - Post Discharge Activity
[2020-04-30 16:52] LABS: BASO % 0.4 % (0-2.0); EOS % 2.3 % (0-4.5); HEMATOCRIT 38.8 % (32.4-45.2); HEMOGLOBIN 12.4 GM/dL (10.7-15.3); LYMPH % 17.6 % (8-40); MCH 21.6 pg (25.7-33.7); MCHC 31.9 g/dl (32.0-36.0); MEAN CELL VOLUME 67.6 fl (80-96); MEAN PLT VOLUME 9.3 fl (7.5-11.1); NEUT % 73.7 % (42.8-82.8); PLATELET COUNT 300 K/MM3 (134-434); RBC 5.73 M/mm3 (3.60-5.2); WHITE BLOOD COUNT 10.6 K/mm3 (4.0-10.0)
[2020-04-30 17:21] LABS: ALBUMIN 3.6 g/dl (3.4-5.0); ALK PHOS 131 U/L (45-117); ANION GAP 6 MMOL/L (8-16); BILIRUBIN,TOTAL 0.3 mg/dL (0.2-1); BLOOD UREA NITROGEN 12.7 mg/dL (7-18); CALCIUM 8.9 mg/dL (8.5-10.1); CHLORIDE 101 mmol/L (98-107); CO2 30 mmol/L (21-32); CREATININE 1.1 mg/dL (0.55-1.3); GLUCOSE,RANDOM 217 mg/dL (74-106); MAGNESIUM 2.3 mg/dL (1.8-2.4); N-TERMINAL BNP 1234.1 pg/ml (5-450); POTASSIUM 4.1 mmol/L (3.5-5.1); SGOT/AST 20 U/L (15-37); SGPT/ALT 24 U/L (13-61); SODIUM 137 mmol/L (136-145); TOT PROT 6.9 g/dl (6.4-8.2)
[2020-04-30 17:32] LABS: ANISOCYTOSIS 2+; OVALOCYTE 1+
--- NOTE | 2020-04-30 19:26 | PN ---
Teaching Attending Note Name of Resident: Chaitanya Chadwick ATTENDING PHYSICIAN STATEMENT I saw and evaluated the patient. I reviewed the resident's note and discussed the case with the resident. I agree with the resident's findings and plan as documented. SUBJECTIVE: Patient is an 79 year old woman with a PMH of HTN, HLD, HFpEF (LVEF 55-60%), CAD (s/p CABG, x1 stent, aortic valve replacement), Insulin-treated DM and Asthma who presents via EMS from home for chest pain and SOB. Patient states she has had a increased cough with productive white frothy sputum, and SOB starting last night. Patient tried her albuterol treatments at home with minimal relief. Reports active midsternum dull chest pain, on and off, 8/10 in pain scale and worse with changes in position. Professes adherence with all her home medications. She also complains of nausea, vomiting (NBNB x3) and dizziness. She complains of mild pain in the flanks and mid back that started with coughing. Patient denies headache, palpitations, fever, chills, diarrhea, constipation, dysuria, frequency, urgency, melena, hematochezia or hematuria. Denies alcohol, tobacco or illicit drug use. No sick contacts or recent travels. Patient has a family history of Asthma and heart disease in mother, brother and sister (mother of complications of asthma at 68 years of age) and DM in father. OBJECTIVE: Alert Vital Signs Period Temp Pulse Resp BP Sys/[place]illa Pulse Ox Last 24 Hr 97 F 78 16 160/58 100 HEENT: No Jaundice, eye redness or discharge, PERRLA, EOMI. Normocephalic, atraumatic. External ears are normal and hearing is grossly intact. No nasal discharge. Neck: Supple, nontender. No palpable adenopathy or thyromegaly. No JVD Chest: Good effort. Diminished breath sounds. Clear to percussion. Heart: Regular. No S3, rub or murmur Abdomen: Not distended, soft, nontender and no HSM. No rebound or guarding. Normal bowel sounds. Ext: Peripheral pulses intact. No leg edema. Skin: Warm and dry. No petechiae, rash or ecchymosis. Neuro: Alert. Oriented x3. CN 2-12 grossly intact. Sensation grossly intact in all four extremities and DTR are symmetric. Psych: Appropriate mood and affect. Good insight. Home Medications Medication Instructions Recorded Atorvastatin Ca [Lipitor] 40 mg DAILY 09/15/19 Albuterol 0.083% Nebulizer Isabelle 1 amp NEB RQID #25 amp 09/16/19 [Ventolin 0.083% Nebulizer Soln -] Insulin Glargine,Hum.rec.anlog 35 unit SQ BID@0700,2200 #1 vial 09/16/19 [Lantus] Budesonide/Formeterol Fumarate 2 inh PO BID 02/12/20 [SYMBICORT 160/4.5mcg -] Amlodipine Besylate [Norvasc -] 10 mg PO DAILY #30 tablet 02/18/20 Donepezil HCl [Aricept -] 10 mg PO DAILY 02/18/20 Empagliflozin [Jardiance] 10 mg PO DAILY 02/18/20 Furosemide [Lasix -] 40 mg PO DAILY 02/18/20 Losartan Potassium 100 mg PO DAILY 02/18/20 Metoprolol Succinate [Toprol Xl] 50 mg PO DAILY 02/18/20 Mirtazapine 15 mg PO DAILY 02/18/20 Spironolactone [Aldactone] 25 mg PO DAILY #30 tablet 02/18/20 predniSONE [Deltasone -] See Taper PO ASDIR #30 tab 02/18/20 Abnormal Lab Results 04/30/20 04/30/20 16:10 16:10 WBC 10.6 H RBC 5.73 H MCV 67.6 L MCH 21.6 L MCHC 31.9 L RDW 18.0 H Anion Gap 6 L Random Glucose 217 H Alkaline Phosphatase 131 H B-Natriuretic Peptide 1234.1 H Current Medications Generic Name Dose Route Start Last Admin Trade Name Freq PRN Reason Stop Dose Admin Albuterol Sulfate 1 amp 05/01/20 08:00 Ventolin 0.083% Nebulizer Soln - NEB RQID YISEL Albuterol/Ipratropium 1 amp 05/01/20 08:00 Duoneb - NEB RTID YISEL Amlodipine Besylate 10 mg 05/01/20 10:00 Norvasc - PO DAILY YISEL Atorvastatin Calcium 40 mg 05/01/20 10:00 Lipitor - PO DAILY [facility] Budesonide/Formoterol Fumarate 2 puff 04/30/20 22:00 Symbicort 160/4.5mcg - IH BID YISEL Budesonide/Formoterol Fumarate 2 puff 04/30/20 22:00 Symbicort 160/4.5mcg - IH BID YISEL Donepezil HCl 10 mg 05/01/20 10:00 Aricept - PO DAILY [facility] Enoxaparin Sodium 40 mg 05/01/20 10:00 Lovenox - SQ DAILY [facility] Azithromycin 500 mg/ Dextrose 250 mls @ 250 mls/hr 04/30/20 20:41 IVPB 04/30/20 21:40 ONCE ONE Azithromycin 250 mg/ Dextrose 250 mls @ 250 mls/hr 05/01/20 10:00 IVPB DAILY [facility] Insulin Aspart 1 vial 04/30/20 22:00 Novolog Vial Sliding Scale - SQ ACHS [facility] Protocol Methylprednisolone Sodium Succinate 40 mg 04/30/20 20:45 Solu-Medrol - IVPB Q8H YISEL Metoprolol Succinate 50 mg 05/01/20 10:00 Toprol Xl - PO DAILY [facility] Mirtazapine 15 mg 05/01/20 10:00 Remeron - PO DAILY [facility] Non-Formulary Medication 100 mg 05/01/20 10:00 Losartan Potassium [Losartan Potassium] PO DAILY [facility] Spironolactone 25 mg 05/01/20 10:00 Aldactone - PO DAILY [facility] ASSESSMENT AND PLAN: 1. COPD exacerbation/Chest pain - No obvious precipitating factor. COPD exacerbation may have precipitated angina. Patient tested negative twice for COVID-19 in January 2020. Now pain free, not in respiratory distress with O2 saturation 100% on room air. CXR shows cardiomegaly with increased interstitial markings that are chronic and calcified aortic knob. EKG shows NSR at 77/minute and QTc 463, LAD, LVH with no significant ST-T wave changes. Initial troponin is negative. Will avoid drugs that may prolong QTc. Will admit to telemetry, trend troponin, get ECHO, TSH and consult Cardiology/Pulmonary. Will treat COPD exacerbation with Duoneb, Solumedrol 40 mg q 8 hours, Symbicort and Azithromycin 500 mg IV QD and monitor peak flow. Viral testing for COVID-19 ordered and patient placed on airborne, droplet and contact isolation. Started on supplemental oxygen via nasal cannula. Will continue comprehensive care for all of patients comorbid conditions. 2. Uncontrolled DM For now, we will hold the home diabetes drugs and implement sliding scale insulin regimen. Provide comprehensive diabetes care with patient teaching and counseling about the importance of adherence to prescribed diabetes regimen, euglycemia, eye care and foot care. 3. Obesity Counseled on the risks associated with obesity. Will provide patient all the necessary assistance, counseling and positive reinforcement to facilitate weight loss. Consult advice clerk. 4. Uncontrolled hypertension Will restart suitable outpatient antihypertensive drugs when clinically appropriate. Subsequently, will revise regimen to ensure [id number] excellent BP control. Patient counseled on the injurious effects of uncontrolled hypertension. Nonpharmacologic measures to control hypertension like weight loss, salt restriction and exercise stressed. Importance of adherence to treatment regimen and attainment of normotension emphasized. 5. DVT prophylaxis - Lovenox 40 mg SQ q 24 hours. 6. Advance directives - Full code
[2020-04-30] MEDS ORDERED: AZITHROMYCIN IVPB 500 MG in DEXTROSE 5%-WATER - 250 ML IVPB ONE (20:41)
--- NOTE | 2020-04-30 21:11 | HP ---
CHIEF COMPLAINT: chest tightness, shortness of breath, severe cough and increased sputum production PCP: Dr Kessler ([facility]) HISTORY OF PRESENT ILLNESS: Ms. Herrera is an 80F w a h/o diastolic CHF HFpEF of 55-60% (09/14/2019), asthma exacerbation, CAD s/p stent placement of the Left anterior decending artery, s/p bioprosthetic aortic valve replacement, s/p CABG, HTN, HLD, DM type II. Javier first started noticing her symptoms yesterday when walking around the house. She developed shortness of breath accompanied by an episode of coughing with concomitant white sputum production which lasted approximately 1 hour. The patient states that her rescue inhaler provided minimal relief. During the day she continued to experience shortness of breath while walking that she says resembled her symptoms on a previous admission back in january. She noticed that while she was coughing she developed chest tightness localized to the center of her chest and substernally. She denies any radiation to her arms or neck. The patient endorses middle back pain during the episode of coughing and fatigue. The patient explains that she lives alone in her one story apartment and would not be able to walk more than 2 blocks and would not be able to climb a flight of stairs without tiring. On exam the patient denies shortness of breath while seated on the gurney or any current chest pain. She was noted to have an O2 saturation rate of 97% on room air during the interview. The patient endorses strict adherence to her home medications. The patient also endorses 3 episodes of NBNB vomitus. She denies numbness or tingling in her upper or lower extremities, dizziness, headache, abdominal pain, diarrhea, or diaphoresis. In the emergency department she was given 125mg of Methylprednisolone and 3 amps of albuterol. The patient endorses rapid improvement of her symptoms after treatment in the ED. Lab findings in the ED were notable for a WBC 10.6 and BNP of 1234.1. EKG findings were unremarkable (Left axis deviation, regular rate with normal sinus rhythm, QTc 463). The patient was noted to have erythema, pruritis, and scaling of the left lower extremity. Recent Travel: DENIES PAST MEDICAL HISTORY: diastolic CHF HFpEF of 55-60% (09/14/2019), asthma exacerbation, CAD s/p stent placement of the Left anterior decending artery, s/p bioprosthetic aortic valve replacement, s/p CABG, HTN, HLD, DM type II. PAST SURGICAL HISTORY: CABG, LAD stent, aortic valve replacement not on AC, Left shoulder surgery, Cholecystectomy Social History: Smoking: DENIES Alcohol: DENIES Drugs: DENIES Allergies No Known Allergies Allergy (Verified 04/30/20 14:57) HOME MEDICATIONS: Home Medications Medication Instructions Recorded Atorvastatin Ca [Lipitor] 40 mg DAILY 09/15/19 Albuterol 0.083% Nebulizer Isabelle 1 amp NEB RQID #25 amp 09/16/19 [Ventolin 0.083% Nebulizer Soln -] Insulin Glargine,Hum.rec.anlog 35 unit SQ BID@0700,2200 #1 vial 09/16/19 [Lantus] Budesonide/Formeterol Fumarate 2 inh PO BID 02/12/20 [SYMBICORT 160/4.5mcg -] Amlodipine Besylate [Norvasc -] 10 mg PO DAILY #30 tablet 02/18/20 Donepezil HCl [Aricept -] 10 mg PO DAILY 02/18/20 Empagliflozin [Jardiance] 10 mg PO DAILY 02/18/20 Furosemide [Lasix -] 40 mg PO DAILY 02/18/20 Losartan Potassium 100 mg PO DAILY 02/18/20 Metoprolol Succinate [Toprol Xl] 50 mg PO DAILY 02/18/20 Mirtazapine 15 mg PO DAILY 02/18/20 Spironolactone [Aldactone] 25 mg PO DAILY #30 tablet 02/18/20 predniSONE [Deltasone -] See Taper PO ASDIR #30 tab 02/18/20 REVIEW OF SYSTEMS CONSTITUTIONAL: aao X3 Absent: fever, chills, diaphoresis, generalized weakness, malaise, loss of appetite, INCREASED WEIGHT GAIN CARDIOVASCULAR: Absent: chest pain, syncope, palpitations, irregular heart rate, lightheadedness, peripheral edema RESPIRATORY: POOR INSPIRATION EFFORT GASTROINTESTINAL: DISTENSION Absent: abdominal pain, nausea, vomiting, diarrhea, constipation, melena, hematochezia GENITOURINARY: Absent: dysuria, frequency, urgency, hesitancy, hematuria, flank pain, genital pain MUSCULOSKELETAL: BACK PAIN Absent: myalgia, arthralgia, joint swelling, neck pain SKIN: ITCHING, AND SCALING OF LLE Absent: pallor PHYSICAL EXAMINATION Vital Signs - 24 hr 04/30/20 14:57 Temperature 97 F L Pulse Rate 78 Respiratory 16 Rate Blood Pressure 160/58 L O2 Sat by Pulse 100 Oximetry (%) GENERAL: Awake, alert, and fully oriented, in no acute distress. HEAD: Normal with no signs of trauma. LUNGS: BILATERAL WHEEZING UPON AUSCULTATION OF THE UPPER LOBES, POOR INSPIRATION EFFORT HEART: Regular rate and rhythm, normal S1 and S2 without murmur, rub or gallop. ABDOMEN: Soft, nontender, distended, normoactive bowel sounds, no guarding, no rebound, no masses. No hepatomegaly or splenomegaly. UPPER EXTREMITIES: 2+ pulses, warm, well-perfused. No cyanosis. No clubbing. No peripheral edema. LOWER EXTREMITIES: 2+ pulses, warm, well-perfused. No calf tenderness. No peripheral edema. PSYCHIATRIC: Cooperative. Good eye contact. Appropriate mood and affect. Laboratory Results - last 24 hr 04/30/20 04/30/20 16:10 16:10 WBC 10.6 H RBC 5.73 H Hgb 12.4 Hct 38.8 D MCV 67.6 L MCH 21.6 L MCHC 31.9 L RDW 18.0 H Plt Count 300 MPV 9.3 Absolute Neuts (auto) 7.8 Neutrophils % 73.7 Lymphocytes % 17.6 D Monocytes % 6.0 Eosinophils % 2.3 D Basophils % 0.4 Nucleated RBC % 0 Hypochromia 2+ Anisocytosis 2+ Microcytosis 2+ Ovalocytes 1+ Sodium 137 Potassium 4.1 Chloride 101 Carbon Dioxide 30 Anion Gap 6 L BUN 12.7 Creatinine 1.1 Est GFR (CKD-EPI)AfAm 54.15 Est GFR (CKD-EPI)NonAf 46.72 Random Glucose 217 H Calcium 8.9 Magnesium 2.3 Total Bilirubin 0.3 AST 20 ALT 24 Alkaline Phosphatase 131 H Creatine Kinase 118 Troponin I < 0.02 B-Natriuretic Peptide 1234.1 H Total Protein 6.9 Albumin 3.6 ASSESSMENT/PLAN: Ms. Herrera is an 80F w a h/o diastolic CHF HFpEF of 55-60% (09/14/2019), asthma exacerbation, CAD s/p stent placement of the Left anterior decending artery, s/p bioprosthetic aortic valve replacement, s/p CABG, HTN, HLD, DM type II presenting with a chief complaint of shortness of breath and cough admitted to telemetry for chest pain and shortness of breath. #ASTHMA EXACERBATION w chest pain The patient has had a prior admission in january for asthma exacerbation treated with supplemental O2 steroids and inhaler therapy. She had also been negative twice for COVID-19 during admission in january. - CXR reveals increased cephalization and interstitial markings of the pulmonic vessels - Troponins negative x1 will continue to trend every 6 hours - O2 saturations on RA - 97% no need for supplemental O2 - Duonebs - Solumedrol 40 mg q 8 hours - Symbicort - Azithromycin 500 mg IV QD - Lipid panel ordered - TSH ordered - COVID-19 testing with airborne, droplet and contact isolation - Consultation placed with Dr. Landen Potter - Consultation placed with Dr. Kenn Zuñiga - Monitor peak flow #Uncontrolled DM II - Patient has not received her evening dose of lantus - Random glucose of 217 - placed on insulin sliding scale - holding her home medications of insulin - Patient placed on glucose/sodium diet - BGM q6h - A1C order placed #HTN - Restarting home blood pressure medications - Repeat EKG - monitoring BP - Sodium/glucose diet #DVT Ppx - Lovenox 40mg #DISPO - full code - all home medications were reconciled with the pharmacy ATTENDING PHYSICIAN STATEMENT I saw and evaluated the patient. I reviewed the resident's note and discussed the case with the resident. I agree with the resident's findings and plan as documented. SUBJECTIVE: OBJECTIVE: ASSESSMENT AND PLAN:
[2020-04-30] MEDS ORDERED: BUDESONIDE/FORMETEROL FUMARATE 160/4.5 mcg INHALER IH SCH (22:00)
[2020-04-30] MEDS ORDERED: methylPREDNISolone NA SUCC 40 MG/1 ML VIAL ONE (22:02)
[2020-04-30] MEDS: INSULIN SLIDING SCALE (NOVOLOG) 1 VIAL SQ SCH (22:16)
[2020-04-30] MEDS: methylPREDNISolone NA SUCC 1000 MG/8 ML VIAL IVPB SCH (22:16)
[2020-04-30] MEDS ORDERED: AZITHROMYCIN IVPB 500 MG/250 ML BAG IVPB ONE ×2 (22:30→22:45)
[2020-04-30] MEDS: BUDESONIDE/FORMETEROL FUMARATE 160/4.5 mcg INHALER IH SCH (22:55)
[2020-05-01 02:47] LABS: EPI CELLS 18 /uL (0-25.1); HYALINE CASTS 1 /uL (0-3.1); URINE APPEARANCE CLEAR; URINE BACTERIA 95 /uL (0-1359); URINE BILIRUBIN NEGATIVE (NEGATIVE); URINE COLOR YELLOW; URINE GLUCOSE (UA) 2+ (NEGATIVE); URINE KETONE NEGATIVE (NEGATIVE); URINE LEUK ESTERASE NEGATIVE (NEGATIVE); URINE NITRITE NEGATIVE (NEGATIVE); URINE PROTEIN 3+ (NEGATIVE); URINE RBC 5 /uL (0-23.9); URINE UROBILINOGEN 0.2 mg/dL (0.2-1.0); URINE WBC 7 /uL (0-25.8)
[2020-05-01] MEDS ORDERED: PT OWN MED DRAWER 7, Y5N ONE ×3 (03:11→10:02)
[2020-05-01 03:48] VITALS: BMI 34.2
[2020-05-01] MEDS: methylPREDNISolone NA SUCC 1000 MG/8 ML VIAL IVPB SCH (06:15)
[2020-05-01] MEDS: INSULIN SLIDING SCALE (NOVOLOG) 1 VIAL SQ SCH ×4 (06:33→22:09)
--- NOTE | 2020-05-01 07:11 | CON.CARD ---
Consult Consult Specialty:: Cardiology - History of Present Illness History of Present Illness: Ms. Herrera is an 80F w a h/o diastolic CHF HFpEF of 55-60% (09/14/2019), asthma exacerbation, CAD s/p stent placement of the Left anterior decending artery, s/p bioprosthetic aortic valve replacement, s/p CABG, HTN, HLD, DM type II admitted with worsening SOB. Lab findings in the ED were notable for a WBC 10.6 and BNP of 1234.1. EKG findings were unremarkable (Left axis deviation, regular rate with normal sinus rhythm, QTc 463). The patient was noted to have erythema, pruritis, and scaling of the left lower extremity. Recent Travel: DENIES PAST MEDICAL HISTORY: diastolic CHF HFpEF of 55-60% (09/14/2019), asthma exacerbation, CAD s/p stent placement of the Left anterior decending artery, s/p bioprosthetic aortic valve replacement, s/p CABG, HTN, HLD, DM type II. - History Source History Provided By: Patient, Medical Record - Past Medical History Cardio/Vascular: Yes: CAD (s/p stent), CHF (diastolic ), HTN, Hyperlipdemia Pulmonary: Yes: Asthma ...: No Psych: Yes: Anxiety Endocrine: Yes: Diabetes Mellitus - Alcohol/Substance Use Hx Alcohol Use: No - Smoking History Smoking history: Never smoked Have you smoked in the past 12 months: No Home Medications - Allergies Allergies/Adverse Reactions: Allergies Allergy/AdvReac Type Severity Reaction Status Date / Time No Known Allergies Allergy Verified 04/30/20 14:57 - Home Medications Home Medications: Ambulatory Orders Atorvastatin Ca [Lipitor] 40 mg DAILY 09/15/19 Albuterol 0.083% Nebulizer Isabelle [Ventolin 0.083% Nebulizer Soln -] 1 amp NEB RQID #25 amp 09/16/19 Budesonide/Formeterol Fumarate [SYMBICORT 160/4.5mcg -] 2 inh PO BID 02/12/20 Amlodipine Besylate [Norvasc -] 10 mg PO DAILY #30 tablet 02/18/20 Donepezil HCl [Aricept -] 10 mg PO DAILY 02/18/20 Empagliflozin [Jardiance] 10 mg PO DAILY 02/18/20 Furosemide [Lasix -] 40 mg PO DAILY 02/18/20 Losartan Potassium 100 mg PO DAILY 02/18/20 Metoprolol Succinate [Toprol Xl] 50 mg PO DAILY 02/18/20 Mirtazapine 15 mg PO DAILY 02/18/20 Spironolactone [Aldactone] 25 mg PO DAILY #30 tablet 02/18/20 Insulin Glargine,Hum.rec.anlog [Lantus] 34 unit SQ BID@0700,2200 04/30/20 Review of Systems - Review of Systems Constitutional: reports: No Symptoms Eyes: reports: No Symptoms HENT: reports: No Symptoms Neck: reports: No Symptoms Cardiovascular: reports: Edema, Shortness of Breath Respiratory: reports: SOB, SOB on Exertion Gastrointestinal: reports: No Symptoms Genitourinary: reports: No Symptoms Breasts: reports: No Symptoms Reported Musculoskeletal: reports: No Symptoms Integumentary: reports: No Symptoms Neurological: reports: No Symptoms Endocrine: reports: No Symptoms Hematology/Lymphatic: reports: No Symptoms Psychiatric: reports: No Symptoms Vital Signs: Vital Signs Temperature 97.8 F 05/01/20 06:00 Pulse Rate 80 05/01/20 06:00 Respiratory Rate 20 05/01/20 06:00 Blood Pressure 160/78 05/01/20 06:00 O2 Sat by Pulse Oximetry (%) 97 04/30/20 23:00 Constitutional: Yes: Well Nourished, No Distress, Calm Eyes: Yes: WNL, Conjunctiva Clear, EOM Intact HENT: Yes: WNL, Atraumatic, Normocephalic Neck: Yes: WNL, Supple, Trachea Midline Respiratory: Yes: Diminished Gastrointestinal: Yes: WNL, Normal Bowel Sounds Renal/: Yes: WNL Cardiovascular: Yes: WNL, Regular Rate and Rhythm Heart Sounds: Yes: S1, S2 Musculoskeletal: Yes: WNL Extremities: Yes: WNL Edema: Yes Integumentary: Yes: WNL Neurological: Yes: WNL, Alert, Oriented ...Motor Strength: WNL Psychiatric: Yes: WNL, Alert, Oriented - Other Data Labs, Other Data: CBC, BMP 04/30/20 16:10 04/30/20 16:10 Troponin, BNP 04/30/20 04/30/20 16:10 22:00 Troponin I < 0.02 < 0.02 B-Natriuretic Peptide 1234.1 H Troponin, BNP 04/30/20 04/30/20 16:10 22:00 Troponin I < 0.02 < 0.02 B-Natriuretic Peptide 1234.1 H Imaging - Results Chest X-ray: Image Reviewed (cm mild increased markings) EKG: Image Reviewed (sr rep abn) Problem List - Problems (1) Asthma exacerbation Code(s): J45.901 - UNSPECIFIED ASTHMA WITH (ACUTE) EXACERBATION (2) HTN (hypertension) Code(s): I10 - ESSENTIAL (PRIMARY) HYPERTENSION Qualifiers: Hypertension type: unspecified Qualified Code(s): I10 - Essential (primary) hypertension (3) Diabetes Code(s): E11.9 - TYPE 2 DIABETES MELLITUS WITHOUT COMPLICATIONS (4) Acute on chronic diastolic (congestive) heart failure Code(s): I50.33 - ACUTE ON CHRONIC DIASTOLIC (CONGESTIVE) HEART FAILURE (5) Acute respiratory distress Code(s): R06.03 - ACUTE RESPIRATORY DISTRESS (6) Bronchial asthma Code(s): J45.909 - UNSPECIFIED ASTHMA, UNCOMPLICATED Qualifiers: Asthma severity: unspecified severity (7) CHF exacerbation Code(s): I50.9 - HEART FAILURE, UNSPECIFIED (8) Diastolic dysfunction without heart failure Code(s): I51.89 - OTHER ILL-DEFINED HEART DISEASES (9) Hyperlipidemia Code(s): E78.5 - HYPERLIPIDEMIA, UNSPECIFIED Qualifiers: Hyperlipidemia type: pure hypercholesterolemia Qualified Code(s): E78.00 - Pure hypercholesterolemia, unspecified; E78.0 - Pure hypercholesterolemia (10) Hypertensive urgency Code(s): I16.0 - HYPERTENSIVE URGENCY (11) Microcytic anemia Code(s): D50.9 - IRON DEFICIENCY ANEMIA, UNSPECIFIED (12) Pneumonia Code(s): J18.9 - PNEUMONIA, UNSPECIFIED ORGANISM (13) Recurrent labyrinthitis Code(s): H83.09 - LABYRINTHITIS, UNSPECIFIED EAR Qualifiers: Laterality: right Qualified Code(s): H83.01 - Labyrinthitis, right ear (14) Respiratory distress Code(s): R06.03 - ACUTE RESPIRATORY DISTRESS (15) S/P AVR (aortic valve replacement) Code(s): Z95.2 - PRESENCE OF PROSTHETIC HEART VALVE (16) Dizziness Code(s): R42 - DIZZINESS AND GIDDINESS Assessment/Plan 80F w a h/o diastolic CHF HFpEF of 55-60% (09/14/2019), asthma exacerbation, CAD s/p stent placement of the Left anterior decending artery, s/p bioprosthetic aortic valve replacement, s/p CABG, HTN, HLD, DM type II admitted with worsening SOB elevated BNP c/w decompensated CHF. Plan; Telemetry Lasix DVT plx coverage for dr. Giles
[2020-05-01 07:49] LABS: BASO % 0.2 % (0-2.0); HEMATOCRIT 36.2 % (32.4-45.2); HEMOGLOBIN 11.4 GM/dL (10.7-15.3); LYMPH % 9.8 % (8-40); MCH 21.1 pg (25.7-33.7); MCHC 31.6 g/dl (32.0-36.0); MEAN CELL VOLUME 66.8 fl (80-96); MEAN PLT VOLUME 9.2 fl (7.5-11.1); MONO % 0.8 % (3.8-10.2); NEUT % 89.2 % (42.8-82.8); PLATELET COUNT 266 K/MM3 (134-434); RBC 5.42 M/mm3 (3.60-5.2); RDW 18.4 % (11.6-15.6); WHITE BLOOD COUNT 9.3 K/mm3 (4.0-10.0)
[2020-05-01 07:57] LABS: ALBUMIN 3.4 g/dl (3.4-5.0); ALK PHOS 119 U/L (45-117); ANION GAP 9 MMOL/L (8-16); BILIRUBIN,TOTAL 0.4 mg/dL (0.2-1); BLOOD UREA NITROGEN 19.3 mg/dL (7-18); CALCIUM 8.9 mg/dL (8.5-10.1); CHLORIDE 102 mmol/L (98-107); CHOLESTEROL 198 mg/dL (50-200); CO2 28 mmol/L (21-32); CREATININE 1.1 mg/dL (0.55-1.3); GLUCOSE,RANDOM 291 mg/dL (74-106); HDL CHOLESTEROL 60 mg/dL (40-60); LDL CHOLESTEROL (ONLY SJRH) 117 mg/dL (5-100); MAGNESIUM 2.3 mg/dL (1.8-2.4); POTASSIUM 4.2 mmol/L (3.5-5.1); SGOT/AST 14 U/L (15-37); SGPT/ALT 21 U/L (13-61); SODIUM 138 mmol/L (136-145); TOT PROT 6.4 g/dl (6.4-8.2); TRIGLYCERIDES 82 mg/dL (0-150)
[2020-05-01] MEDS: ALBUTEROL SO4 2.5/IPRATROPIUM 0.5 INH SOL 3 ML VIAL.NEB. NEB SCH ×3 (08:39→20:31)
[2020-05-01] MEDS: ALBUTEROL SO4 0.083% IH SOL 2.5 MG/3 ML VIAL.NEB. NEB SCH ×4 (08:40→20:31)
[2020-05-01] MEDS: amLODIPine BESYLATE 10 MG TABLET (FP) PO SCH (09:59)
[2020-05-01] MEDS: MIRTAZAPINE 15 MG TABLET (FP) PO SCH ×3 (09:59→22:09)
[2020-05-01] MEDS: methylPREDNISolone NA SUCC 40 MG/1 ML VIAL IVPB SCH ×2 (09:59→17:53)
[2020-05-01] MEDS: ATORVASTATIN CA 40 MG TABLET (FP) PO SCH (09:59)
[2020-05-01] MEDS: SPIRONOLACTONE 25 MG TABLET PO SCH (09:59)
[2020-05-01] MEDS: ENOXAPARIN NA (PORCINE) 40 MG/0.4 ML DISP.SYRIN SQ SCH (10:00)
[2020-05-01] MEDS ORDERED: LOSARTAN POTASSIUM 100 MG TABLET PO SCH (10:00)
[2020-05-01] MEDS: DONEPEZIL HCL 10 MG TABLET (FP) PO SCH (10:00)
[2020-05-01] MEDS: BUDESONIDE/FORMETEROL FUMARATE 160/4.5 mcg INHALER IH SCH ×2 (10:00→22:09)
[2020-05-01] MEDS ORDERED: LOSARTAN POTASSIUM 50 MG TABLET (FP) PO SCH (10:05)
[2020-05-01] MEDS: AZITHROMYCIN IVPB 250 MG in DEXTROSE 5%-WATER - 250 ML IVPB SCH (10:28)
[2020-05-01] MEDS: LOSARTAN POTASSIUM 50 MG TABLET (FP) PO SCH (10:31)
--- NOTE | 2020-05-01 12:36 | PN ---
Progress Note (short form) - Note Progress Note: SUBJECTIVE: SOB improving. No further chest discomfort. Cough - no sputum. No fever/chills. OBJECTIVE: Afberile, Hemodynamically Stable. Last Vital Signs Temp Pulse Resp BP Pulse Ox 98.3 F 71 20 173/96 H 97 05/01/20 10:00 05/01/20 10:00 05/01/20 10:00 05/01/20 10:00 05/01/20 10:00 HEENT- Atraumatic, Normocephalic. Heart - S1, S2, RRR Lungs - decreased air entry globally Abdomen - Soft, non-tender. Bowel Sounds normal. Extremities - no calf tenderness. Neuro - AAO x 3. Tone/Power normal. Laboratory Results - last 24 hr 04/30/20 04/30/20 04/30/20 16:10 16:10 21:03 WBC 10.6 H RBC 5.73 H Hgb 12.4 Hct 38.8 D MCV 67.6 L MCH 21.6 L MCHC 31.9 L RDW 18.0 H Plt Count 300 MPV 9.3 Absolute Neuts (auto) 7.8 Neutrophils % 73.7 Lymphocytes % 17.6 D Monocytes % 6.0 Eosinophils % 2.3 D Basophils % 0.4 Nucleated RBC % 0 Hypochromia 2+ Anisocytosis 2+ Microcytosis 2+ Ovalocytes 1+ Sodium 137 Potassium 4.1 Chloride 101 Carbon Dioxide 30 Anion Gap 6 L BUN 12.7 Creatinine 1.1 Est GFR (CKD-EPI)AfAm 54.15 Est GFR (CKD-EPI)NonAf 46.72 POC Glucometer 324 Random Glucose 217 H Hemoglobin A1c % Calcium 8.9 Phosphorus Magnesium 2.3 Total Bilirubin 0.3 AST 20 ALT 24 Alkaline Phosphatase 131 H Creatine Kinase 118 Troponin I < 0.02 B-Natriuretic Peptide 1234.1 H Total Protein 6.9 Albumin 3.6 Triglycerides Cholesterol Total LDL Cholesterol HDL Cholesterol TSH Urine Color Urine Appearance Urine pH Ur Specific [place] Urine Protein Urine Glucose (UA) Urine Ketones Urine Blood Urine Nitrite Urine Bilirubin Urine Urobilinogen Ur Leukocyte Esterase Urine WBC (Auto) Urine RBC (Auto) Urine Casts (Auto) U Epithel Cells (Auto) Urine Bacteria (Auto) 04/30/20 05/01/20 05/01/20 22:00 01:00 05:28 WBC RBC Hgb Hct MCV MCH MCHC RDW Plt Count MPV Absolute Neuts (auto) Neutrophils % Lymphocytes % Monocytes % Eosinophils % Basophils % Nucleated RBC % Hypochromia Anisocytosis Microcytosis Ovalocytes Sodium Potassium Chloride Carbon Dioxide Anion Gap BUN Creatinine Est GFR (CKD-EPI)AfAm Est GFR (CKD-EPI)NonAf POC Glucometer Random Glucose Hemoglobin A1c % 9.3 H Calcium Phosphorus Magnesium Total Bilirubin AST ALT Alkaline Phosphatase Creatine Kinase Troponin I < 0.02 B-Natriuretic Peptide Total Protein Albumin Triglycerides Cholesterol Total LDL Cholesterol HDL Cholesterol TSH Urine Color Yellow Urine Appearance Clear Urine pH 6.0 Ur Specific [place] 1.016 Urine Protein 3+ H Urine Glucose (UA) 2+ H Urine Ketones Negative Urine Blood Negative Urine Nitrite Negative Urine Bilirubin Negative Urine Urobilinogen 0.2 Ur Leukocyte Esterase Negative Urine WBC (Auto) 7 Urine RBC (Auto) 5 Urine Casts (Auto) 1 U Epithel Cells (Auto) 18 Urine Bacteria (Auto) 95 05/01/20 05/01/20 05/01/20 05:28 05:28 06:28 WBC 9.3 RBC 5.42 H Hgb 11.4 Hct 36.2 MCV 66.8 L MCH 21.1 L MCHC 31.6 L RDW 18.4 H Plt Count 266 MPV 9.2 Absolute Neuts (auto) 8.3 H Neutrophils % 89.2 H D Lymphocytes % 9.8 D Monocytes % 0.8 L D Eosinophils % 0.0 D Basophils % 0.2 Nucleated RBC % 0 Hypochromia Anisocytosis Microcytosis Ovalocytes Sodium 138 Potassium 4.2 Chloride 102 Carbon Dioxide 28 Anion Gap 9 BUN 19.3 H Creatinine 1.1 Est GFR (CKD-EPI)AfAm 54.15 Est GFR (CKD-EPI)NonAf 46.72 POC Glucometer 277 Random Glucose 291 H Hemoglobin A1c % Calcium 8.9 Phosphorus 4.0 Magnesium 2.3 Total Bilirubin 0.4 AST 14 L ALT 21 Alkaline Phosphatase 119 H Creatine Kinase Troponin I B-Natriuretic Peptide Total Protein 6.4 Albumin 3.4 Triglycerides 82 Cholesterol 198 Total LDL Cholesterol 117 H HDL Cholesterol 60 TSH 0.30 L Urine Color Urine Appearance Urine pH Ur Specific [place] Urine Protein Urine Glucose (UA) Urine Ketones Urine Blood Urine Nitrite Urine Bilirubin Urine Urobilinogen Ur Leukocyte Esterase Urine WBC (Auto) Urine RBC (Auto) Urine Casts (Auto) U Epithel Cells (Auto) Urine Bacteria (Auto) 05/01/20 11:00 WBC RBC Hgb Hct MCV MCH MCHC RDW Plt Count MPV Absolute Neuts (auto) Neutrophils % Lymphocytes % Monocytes % Eosinophils % Basophils % Nucleated RBC % Hypochromia Anisocytosis Microcytosis Ovalocytes Sodium Potassium Chloride Carbon Dioxide Anion Gap BUN Creatinine Est GFR (CKD-EPI)AfAm Est GFR (CKD-EPI)NonAf POC Glucometer 410 Random Glucose Hemoglobin A1c % Calcium Phosphorus Magnesium Total Bilirubin AST ALT Alkaline Phosphatase Creatine Kinase Troponin I B-Natriuretic Peptide Total Protein Albumin Triglycerides Cholesterol Total LDL Cholesterol HDL Cholesterol TSH Urine Color Urine Appearance Urine pH Ur Specific [place] Urine Protein Urine Glucose (UA) Urine Ketones Urine Blood Urine Nitrite Urine Bilirubin Urine Urobilinogen Ur Leukocyte Esterase Urine WBC (Auto) Urine RBC (Auto) Urine Casts (Auto) U Epithel Cells (Auto) Urine Bacteria (Auto) Current Medications Generic Name Dose Route Start Last Admin Trade Name Freq PRN Reason Stop Dose Admin Albuterol Sulfate 1 amp 05/01/20 08:00 05/01/20 08:40 Ventolin 0.083% Nebulizer Soln - NEB Not Given RQID YISEL Albuterol/Ipratropium 1 amp 05/01/20 08:00 05/01/20 08:39 Duoneb - NEB Not Given RTID YISEL Amlodipine Besylate 10 mg 05/01/20 10:00 05/01/20 09:59 Norvasc - PO 10 mg DAILY YISEL Administration Atorvastatin Calcium 40 mg 05/01/20 10:00 05/01/20 09:59 Lipitor - PO 40 mg DAILY YISEL Administration Budesonide/Formoterol Fumarate 2 puff 04/30/20 22:00 05/01/20 10:00 Symbicort 160/4.5mcg - IH 2 puff BID YISEL Administration Donepezil HCl 10 mg 05/01/20 10:00 05/01/20 10:00 Aricept - PO 10 mg DAILY YISEL Administration Enoxaparin Sodium 40 mg 05/01/20 10:00 05/01/20 10:00 Lovenox - SQ 40 mg DAILY YISEL Administration Azithromycin 250 mg/ Dextrose 250 mls @ 250 mls/hr 05/01/20 10:00 05/01/20 10:28 IVPB 250 mls/hr DAILY YISEL Administration Insulin Aspart 1 vial 04/30/20 22:00 05/01/20 06:33 Novolog Vial Sliding Scale - SQ 6 units ACHS YISEL Administration Protocol Losartan Potassium 100 mg 05/01/20 10:15 05/01/20 10:31 Cozaar - PO 100 mg DAILY YISEL Administration Methylprednisolone Sodium Succinate 40 mg 05/01/20 07:30 05/01/20 09:59 Solu-Medrol - IVPB 40 mg Q8H-IV YISEL Administration Metoprolol Succinate 50 mg 05/01/20 10:00 05/01/20 10:00 Toprol Xl - PO 50 mg DAILY YISEL Administration Mirtazapine 15 mg 05/01/20 10:00 05/01/20 10:13 Remeron - PO Not Given DAILY YISEL Spironolactone 25 mg 05/01/20 10:00 05/01/20 09:59 Aldactone - PO 25 mg DAILY YISEL Administration Home Medications Medication Instructions Recorded Atorvastatin Ca [Lipitor] 40 mg DAILY 09/15/19 Albuterol 0.083% Nebulizer Isabelle 1 amp NEB RQID #25 amp 09/16/19 [Ventolin 0.083% Nebulizer Soln -] Budesonide/Formeterol Fumarate 2 inh PO BID 02/12/20 [SYMBICORT 160/4.5mcg -] Amlodipine Besylate [Norvasc -] 10 mg PO DAILY #30 tablet 02/18/20 Donepezil HCl [Aricept -] 10 mg PO DAILY 02/18/20 Empagliflozin [Jardiance] 10 mg PO DAILY 02/18/20 Furosemide [Lasix -] 40 mg PO DAILY 02/18/20 Losartan Potassium 100 mg PO DAILY 02/18/20 Metoprolol Succinate [Toprol Xl] 50 mg PO DAILY 02/18/20 Mirtazapine 15 mg PO DAILY 02/18/20 Spironolactone [Aldactone] 25 mg PO DAILY #30 tablet 02/18/20 Insulin Glargine,Hum.rec.anlog 34 unit SQ BID@0700,2200 04/30/20 [Lantus] ASSESSMENT/PLAN: 80 yea sud female with history of Dementia, Chronic Diastolic CHF (EF 55%), Asthma, CAD s/p LAD Stent/s/p CABG, s/p Bioprosthetic AV, HTN. HLD, DM 2, presented with increasing SOB/cough with associated chest tightness. 1. Acute Asthma Exacerbation Improving on IV Solumedrol, Bronchodilator Nebs, Azithromycin TropI neg x 2. ECG - no acute changes. CXR - no acute cardiopulmonary changes. 3rd Trop ordered, Cardiology consulted to exclude ACS as cause for her SOB/chest tightness. 2. DM 2, Uncontrolled, A1C 9.3 Resume on home Glargine and Novolog sliding scale. 3. HTN - uncontrolled, resumed on Metoprolol, Spironolactone, Norvasc, Losartan. 4. HLD - continue Lipitor 5. Dementia - continue Mirtazapine, Donepezil. 6. Chronic Diastolic CHF - Continue BB, Lasix, Spironolactone. 7. Low TSH 0.3, free T4 pending. 8. Microcytosis - MCV 66.8 - Iron studies requested. DVT Px - Lovenox SQ Visit type - Emergency Visit Emergency Visit: Yes ED Registration Date: 04/30/20 Care time: The patient presented to the Emergency Department on the above date and was hospitalized for further evaluation of their emergent condition. - New Patient This patient is new to me today: Yes Date on this admission: 05/01/20 - Critical Care Critical Care patient: No - Discharge Referral Referred to [facility] No - Medication Review Med list reviewed for High Risk Meds patients 65 and older: Yes
--- NOTE | 2020-05-01 12:47 | CON.PULM ---
Consult Consult Specialty:: PULMONARY Referred by:: Dr Villalba Reason for Consultation:: shortness of breath - History of Present Illness Chief Complaint: shortness of breath History of Present Illness: 80yo female with h/o HTN, DM, hyperlipidemia, asthma/COPD, LV diastolic dysfunction, CAD s/p CABG, h/o bioAVR who was admitted with worsening shortness of breath x 1 day. States her breathing worsened in the morning, used her in halers without relief. No fevers, chills or sweats. + cough with white sputum and wheezing. No chest pain but with chest tightness. No sick contacts or recent travel. She is a never smoker. - History Source History Provided By: Patient, Medical Record Limitations to Obtaining History: No Limitations - Past Medical History Cardio/Vascular: Yes: CAD (s/p stent), CHF (diastolic ), HTN, Hyperlipdemia Pulmonary: Yes: Asthma ...: No Psych: Yes: Anxiety Endocrine: Yes: Diabetes Mellitus - Alcohol/Substance Use Hx Alcohol Use: No - Smoking History Smoking history: Never smoked Have you smoked in the past 12 months: No Home Medications - Allergies Allergies/Adverse Reactions: Allergies Allergy/AdvReac Type Severity Reaction Status Date / Time No Known Allergies Allergy Verified 04/30/20 14:57 - Home Medications Home Medications: Ambulatory Orders Atorvastatin Ca [Lipitor] 40 mg DAILY 09/15/19 Albuterol 0.083% Nebulizer Isabelle [Ventolin 0.083% Nebulizer Soln -] 1 amp NEB RQID #25 amp 09/16/19 Budesonide/Formeterol Fumarate [SYMBICORT 160/4.5mcg -] 2 inh PO BID 02/12/20 Amlodipine Besylate [Norvasc -] 10 mg PO DAILY #30 tablet 02/18/20 Donepezil HCl [Aricept -] 10 mg PO DAILY 02/18/20 Empagliflozin [Jardiance] 10 mg PO DAILY 02/18/20 Furosemide [Lasix -] 40 mg PO DAILY 02/18/20 Losartan Potassium 100 mg PO DAILY 02/18/20 Metoprolol Succinate [Toprol Xl] 50 mg PO DAILY 02/18/20 Mirtazapine 15 mg PO DAILY 02/18/20 Spironolactone [Aldactone] 25 mg PO DAILY #30 tablet 02/18/20 Insulin Glargine,Hum.rec.anlog [Lantus] 34 unit SQ BID@0700,2200 04/30/20 Review of Systems - Review of Systems Constitutional: reports: Weakness Eyes: denies: Recent Change in Vision HENT: denies: Nasal Congestion, Throat Pain Neck: denies: Stiffness, Tenderness Cardiovascular: reports: Shortness of Breath. denies: Chest Pain, Palpitations Respiratory: reports: Cough, SOB on Exertion, Wheezing. denies: Hemoptysis Gastrointestinal: denies: Abdominal Pain, Nausea, Vomiting Genitourinary: denies: Dysuria, Hematuria Neurological: denies: Dizziness, Headache Endocrine: denies: Unexplained Weight Loss Physical Exam Vital Sings: Vital Signs Temperature 98.3 F 05/01/20 10:00 Pulse Rate 71 05/01/20 10:00 Respiratory Rate 05/01/20 10:00 Blood Pressure 173/96 H 05/01/20 10:00 O2 Sat by Pulse Oximetry (%) 97 05/01/20 10:00 Constitutional: Yes: Anxious Eyes: Yes: Conjunctiva Clear, EOM Intact HENT: Yes: Atraumatic, Normocephalic Neck: Yes: Supple, Trachea Midline Cardiovascular: Yes: Regular Rate and Rhythm Respiratory: Yes: Poor Air Entry ...Clubbing: No Gastrointestinal: Yes: Normal Bowel Sounds, Soft. No: Tenderness Edema: No Neurological: Yes: Alert, Oriented Labs: CBC, BMP 05/01/20 05:28 05/01/20 05:28 Imaging - Results Chest X-ray: Report Reviewed, Image Reviewed (no infiltrates) Assessment/Plan Acute Asthma Exacerbation CAD s/p CABG LV Diastolic Dysfunction h/o bio AVR HTN DM Hyperlipidemia - continue medrol - inhaled bronchodilators - O2 to keep Spo2 >90% - on antibiotics - glucose control while on systemic steroids - DVT prophylaxis Thank you for this consult Vicente Nathan MD
[2020-05-01] MEDS: INSULIN (LEVEMIR) 100 UNITS/ML UNITS SQ SCH ×2 (12:59→22:09)
[2020-05-01] MEDS: FUROSEMIDE 40 MG TABLET (FP) PO SCH (13:00)
[2020-05-01 13:38] LABS: IRON SERUM 40 ug/dL (50-175); TOTAL IRON BINDING CAPACITY 281 ug/dL (250-450)
--- NOTE | 2020-05-01 15:14 | PN ---
Progress Note, Physician History of Present Illness: Ms. Herrera is an 80F w a h/o diastolic CHF HFpEF of 55-60% (09/14/2019), asthma exacerbation, CAD s/p stent placement of the Left anterior decending artery, s/p bioprosthetic aortic valve replacement, s/p CABG, HTN, HLD, DM type II admitted with worsening SOB. Lab findings in the ED were notable for a WBC 10.6 and BNP of 1234.1. EKG findings were unremarkable (Left axis deviation, regular rate with normal sinus rhythm, QTc 463). The patient was noted to have erythema, pruritis, and scaling of the left lower extremity. Recent Travel: DENIES PAST MEDICAL HISTORY: diastolic CHF HFpEF of 55-60% (09/14/2019), asthma exacerbation, CAD s/p stent placement of the Left anterior decending artery, s/p bioprosthetic aortic valve replacement, s/p CABG, HTN, HLD, DM type II. - Current Medication List Current Medications: Active Medications Albuterol Sulfate (Ventolin 0.083% Nebulizer Soln -) 1 amp NEB RQID [facility] Last Admin: 05/01/20 11:50 Dose: Not Given Documented by: Albuterol/Ipratropium (Duoneb -) 1 amp NEB RTID [facility] Last Admin: 05/01/20 08:39 Dose: Not Given Documented by: Amlodipine Besylate (Norvasc -) 10 mg PO DAILY [facility] Last Admin: 05/01/20 09:59 Dose: 10 mg Documented by: Atorvastatin Calcium (Lipitor -) 40 mg PO DAILY [facility] Last Admin: 05/01/20 09:59 Dose: 40 mg Documented by: Budesonide/Formoterol Fumarate (Symbicort 160/4.5mcg -) 2 puff IH BID [facility] Last Admin: 05/01/20 10:00 Dose: 2 puff Documented by: Donepezil HCl (Aricept -) 10 mg PO DAILY [facility] Last Admin: 05/01/20 10:00 Dose: 10 mg Documented by: Enoxaparin Sodium (Lovenox -) 40 mg SQ DAILY [facility] Last Admin: 05/01/20 10:00 Dose: 40 mg Documented by: Furosemide (Lasix -) 40 mg PO DAILY [facility] Last Admin: 05/01/20 13:00 Dose: 40 mg Documented by: Azithromycin 250 mg/ Dextrose 250 mls @ 250 mls/hr IVPB DAILY [facility] Last Admin: 05/01/20 10:28 Dose: 250 mls/hr Documented by: Insulin Aspart (Novolog Vial Sliding Scale -) 1 vial SQ ACHS [facility]; Protocol Last Admin: 05/01/20 12:25 Dose: 12 units Documented by: Insulin Detemir (Levemir Vial) 25 units SQ BID@0700,2200 [facility] Last Admin: 05/01/20 12:59 Dose: 25 units Documented by: Losartan Potassium (Cozaar -) 100 mg PO DAILY [facility] Last Admin: 05/01/20 10:31 Dose: 100 mg Documented by: Methylprednisolone Sodium Succinate (Solu-Medrol -) 40 mg IVPB Q8H-IV [facility] Last Admin: 05/01/20 09:59 Dose: 40 mg Documented by: Metoprolol Succinate (Toprol Xl -) 50 mg PO DAILY [facility] Last Admin: 05/01/20 10:00 Dose: 50 mg Documented by: Mirtazapine (Remeron -) 15 mg PO DAILY [facility] Last Admin: 05/01/20 10:13 Dose: Not Given Documented by: Spironolactone (Aldactone -) 25 mg PO DAILY [facility] Last Admin: 05/01/20 09:59 Dose: 25 mg Documented by: - Objective Vital Signs: Vital Signs Temperature 98.3 F 05/01/20 10:00 Pulse Rate 71 05/01/20 10:00 Respiratory Rate 20 05/01/20 10:00 Blood Pressure 173/96 H 05/01/20 10:00 O2 Sat by Pulse Oximetry (%) 97 05/01/20 10:00 Eyes: Yes: WNL, Conjunctiva Clear, EOM Intact HENT: Yes: WNL, Atraumatic, Normocephalic Neck: Yes: WNL, Supple, Trachea Midline Cardiovascular: Yes: WNL, Regular Rate and Rhythm Respiratory: Yes: WNL, Regular, CTA Bilaterally Gastrointestinal: Yes: WNL, Normal Bowel Sounds Genitourinary: Yes: WNL Musculoskeletal: Yes: WNL Extremities: Yes: WNL Edema: No Integumentary: Yes: WNL Neurological: Yes: WNL, Alert, Oriented ...Motor Strength: WNL Psychiatric: Yes: WNL Labs: CBC, BMP 05/01/20 05:28 05/01/20 05:28 Problem List - Problems (1) Asthma exacerbation Code(s): J45.901 - UNSPECIFIED ASTHMA WITH (ACUTE) EXACERBATION (2) HTN (hypertension) Code(s): I10 - ESSENTIAL (PRIMARY) HYPERTENSION Qualifiers: Hypertension type: unspecified Qualified Code(s): I10 - Essential (primary) hypertension (3) Diabetes Code(s): E11.9 - TYPE 2 DIABETES MELLITUS WITHOUT COMPLICATIONS (4) Acute on chronic diastolic (congestive) heart failure Code(s): I50.33 - ACUTE ON CHRONIC DIASTOLIC (CONGESTIVE) HEART FAILURE (5) Acute respiratory distress Code(s): R06.03 - ACUTE RESPIRATORY DISTRESS (6) Bronchial asthma Code(s): J45.909 - UNSPECIFIED ASTHMA, UNCOMPLICATED Qualifiers: Asthma severity: unspecified severity (7) CHF exacerbation Code(s): I50.9 - HEART FAILURE, UNSPECIFIED (8) Diastolic dysfunction without heart failure Code(s): I51.89 - OTHER ILL-DEFINED HEART DISEASES (9) Hyperlipidemia Code(s): E78.5 - HYPERLIPIDEMIA, UNSPECIFIED Qualifiers: Hyperlipidemia type: pure hypercholesterolemia Qualified Code(s): E78.00 - Pure hypercholesterolemia, unspecified; E78.0 - Pure hypercholesterolemia (10) Hypertensive urgency Code(s): I16.0 - HYPERTENSIVE URGENCY (11) Microcytic anemia Code(s): D50.9 - IRON DEFICIENCY ANEMIA, UNSPECIFIED (12) Pneumonia Code(s): J18.9 - PNEUMONIA, UNSPECIFIED ORGANISM (13) Recurrent labyrinthitis Code(s): H83.09 - LABYRINTHITIS, UNSPECIFIED EAR Qualifiers: Laterality: right Qualified Code(s): H83.01 - Labyrinthitis, right ear (14) Respiratory distress Code(s): R06.03 - ACUTE RESPIRATORY DISTRESS (15) S/P AVR (aortic valve replacement) Code(s): Z95.2 - PRESENCE OF PROSTHETIC HEART VALVE (16) Dizziness Code(s): R42 - DIZZINESS AND GIDDINESS Assessment/Plan 80F w a h/o diastolic CHF HFpEF of 55-60% (09/14/2019), asthma exacerbation, CAD s/p stent placement of the Left anterior decending artery, s/p bioprosthetic aortic valve replacement, s/p CABG, HTN, HLD, DM type II admitted with worsening SOB elevated BNP c/w decompensated CHF. Plan; Telemetry Lasix DVT plx ASA 81 QD ABX and pulmonary rx as per pulmonary and ID svcs coverage for dr. Giles
[2020-05-01] MEDS: FERROUS SO4 325 MG TABLET (FP) PO SCH (22:09)
[2020-05-02] MEDS: methylPREDNISolone NA SUCC 40 MG/1 ML VIAL IVPB SCH ×2 (03:05→09:47)
[2020-05-02] MEDS: INSULIN (LEVEMIR) 100 UNITS/ML UNITS SQ SCH ×2 (06:25→21:45)
[2020-05-02] MEDS: INSULIN SLIDING SCALE (NOVOLOG) 1 VIAL SQ SCH ×4 (06:25→21:44)
[2020-05-02] MEDS: ALBUTEROL SO4 2.5/IPRATROPIUM 0.5 INH SOL 3 ML VIAL.NEB. NEB SCH (07:40)
[2020-05-02] MEDS: ALBUTEROL SO4 0.083% IH SOL 2.5 MG/3 ML VIAL.NEB. NEB SCH (07:40)
[2020-05-02] MEDS ORDERED: PT OWN MED DRAWER 7, Y5N ONE (08:53)
[2020-05-02] MEDS: FUROSEMIDE 40 MG TABLET (FP) PO SCH (09:46)
[2020-05-02] MEDS: ATORVASTATIN CA 40 MG TABLET (FP) PO SCH (09:46)
[2020-05-02] MEDS: amLODIPine BESYLATE 10 MG TABLET (FP) PO SCH (09:46)
[2020-05-02] MEDS: SPIRONOLACTONE 25 MG TABLET PO SCH (09:46)
[2020-05-02] MEDS: LOSARTAN POTASSIUM 50 MG TABLET (FP) PO SCH (09:47)
[2020-05-02] MEDS: DONEPEZIL HCL 10 MG TABLET (FP) PO SCH (09:47)
[2020-05-02] MEDS: FERROUS SO4 325 MG TABLET (FP) PO SCH ×2 (09:47→21:38)
[2020-05-02] MEDS: BUDESONIDE/FORMETEROL FUMARATE 160/4.5 mcg INHALER IH SCH ×2 (09:47→21:48)
[2020-05-02] MEDS: ENOXAPARIN NA (PORCINE) 40 MG/0.4 ML DISP.SYRIN SQ SCH (09:47)
[2020-05-02] MEDS: AZITHROMYCIN IVPB 250 MG in DEXTROSE 5%-WATER - 250 ML IVPB SCH (09:48)
--- NOTE | 2020-05-02 09:53 | PN ---
Progress Note, Physician History of Present Illness: Ms. Herrera is an 80F w a h/o diastolic CHF HFpEF of 55-60% (09/14/2019), asthma exacerbation, CAD s/p stent placement of the Left anterior decending artery, s/p bioprosthetic aortic valve replacement, s/p CABG, HTN, HLD, DM type II admitted with worsening SOB, productive cough and wheezes since improving. Last office visit 03/15/2020. - Current Medication List Current Medications: Active Medications Albuterol Sulfate (Ventolin 0.083% Nebulizer Soln -) 1 amp NEB RQID [facility] [place] Last Admin: 05/01/20 20:31 Dose: Not Given Documented by: Albuterol Sulfate (Ventolin Hfa Inhaler -) 2 puff IH Q4H [facility] [place] Albuterol/Ipratropium (Duoneb -) 1 amp NEB RTID [facility] [place] Last Admin: 05/01/20 20:31 Dose: Not Given Documented by: Amlodipine Besylate (Norvasc -) 10 mg PO DAILY [facility] [place] Last Admin: 05/01/20 09:59 Dose: 10 mg Documented by: Atorvastatin Calcium (Lipitor -) 40 mg PO DAILY [facility] [place] Last Admin: 05/01/20 09:59 Dose: 40 mg Documented by: Budesonide/Formoterol Fumarate (Symbicort 160/4.5mcg -) 2 puff IH BID [facility] [place] Last Admin: 05/01/20 22:09 Dose: 2 puff Documented by: Donepezil HCl (Aricept -) 10 mg PO DAILY [facility] [place] Last Admin: 05/01/20 10:00 Dose: 10 mg Documented by: Enoxaparin Sodium (Lovenox -) 40 mg SQ DAILY [facility] [place] Last Admin: 05/01/20 10:00 Dose: 40 mg Documented by: Ferrous Sulfate (Feosol -) 325 mg PO BID [facility] [place] Last Admin: 05/01/20 22:09 Dose: 325 mg Documented by: Furosemide (Lasix -) 40 mg PO DAILY [facility] Last Admin: 05/01/20 13:00 Dose: 40 mg Documented by: Azithromycin 250 mg/ Dextrose 250 mls @ 250 mls/hr IVPB DAILY [facility] [place] Last Admin: 05/01/20 10:28 Dose: 250 mls/hr Documented by: Insulin Aspart (Novolog Vial Sliding Scale -) 1 vial SQ ACHS [facility]; Protocol Last Admin: 05/02/20 06:25 Dose: 10 units Documented by: Insulin Detemir (Levemir Vial) 25 units SQ BID@0700,2200 [facility] Last Admin: 05/02/20 06:25 Dose: 25 units Documented by: Losartan Potassium (Cozaar -) 100 mg PO DAILY [facility] Last Admin: 05/01/20 10:31 Dose: 100 mg Documented by: Methylprednisolone Sodium Succinate (Solu-Medrol -) 40 mg IVPB Q8H-IV [facility] [place] Last Admin: 05/02/20 03:05 Dose: 40 mg Documented by: Metoprolol Succinate (Toprol Xl -) 50 mg PO DAILY [facility] [place] Last Admin: 05/01/20 10:00 Dose: 50 mg Documented by: Mirtazapine (Remeron -) 15 mg PO HS [facility] [place] Last Admin: 05/01/20 22:09 Dose: 15 mg Documented by: Spironolactone (Aldactone -) 25 mg PO DAILY [facility] [place] Last Admin: 05/01/20 09:59 Dose: 25 mg Documented by: - Objective Vital Signs: Vital Signs Temperature 98.4 F 05/02/20 05:00 Pulse Rate 82 05/02/20 05:00 Respiratory Rate 20 05/02/20 05:00 Blood Pressure 151/78 05/02/20 05:00 O2 Sat by Pulse Oximetry (%) 98 05/01/20 21:00 Constitutional: Yes: No Distress, Calm Neck: Yes: Supple Cardiovascular: Yes: Regular Rate and Rhythm Respiratory: Yes: Diminished, On Nasal O2, SOB Gastrointestinal: Yes: Normal Bowel Sounds, Soft, Abdomen, Obese Edema: No Labs: CBC, BMP 05/01/20 05:28 05/01/20 05:28 - ....Imaging EKG: Report Reviewed (Tele: NSR) Problem List - Problems (1) Hypertensive cardiomegaly without heart failure Code(s): I11.9 - HYPERTENSIVE HEART DISEASE WITHOUT HEART FAILURE (2) Asthma exacerbation Code(s): J45.901 - UNSPECIFIED ASTHMA WITH (ACUTE) EXACERBATION Qualifiers: Asthma severity: unspecified severity Asthma persistence: unspecified Qualified Code(s): J45.901 - Unspecified asthma with (acute) exacerbation (3) Diastolic dysfunction without heart failure Code(s): I51.89 - OTHER ILL-DEFINED HEART DISEASES (4) Hyperlipidemia Code(s): E78.5 - HYPERLIPIDEMIA, UNSPECIFIED Qualifiers: Hyperlipidemia type: pure hypercholesterolemia Qualified Code(s): E78.00 - Pure hypercholesterolemia, unspecified; E78.0 - Pure hypercholesterolemia (5) S/P AVR (aortic valve replacement) Code(s): Z95.2 - PRESENCE OF PROSTHETIC HEART VALVE Assessment/Plan 09/14/2019 Echo: Normal biventricular size and fxn, mild cLVH, mild AR, TR, bioAVR 1. Acute hypoxic respiratory failure related to acute on chronic exacerbation of reactive airway disease/bronchial asthma 2. Coronary artery disease post PCI angina pectoris, clinically stable 3. Diastolic left ventricular dysfunction with chronic class I [place] [employer] classification left ventricular failure, clinically compensated/euvolemic- BNP elevation is probably chronic 4. Post AVR/bioprosthesis 5. HTN heart disease 6. DM 7. Hypercholesterolemia 8. Chronic kidney disease 9. Anemia PLAN: 1. Bronchodilators, IV steroid with GI protection, Lovenox at DVT prophylaxis dose as d-dimer low, O2 to maintain saO2, empiric abx course 2. Continue Norvasc 10 qd, Lipitor 40 qd 3. Continue Cozaar 100 qd, Toprol XL 50 qd 4. Continue Aldactone 25 qd and Lasix 40 qd with monitor diuretic response, renal fxn and electrolytes 5. Continue ASA 81 qd with close monitoring of Hgb level 6. Advised antibiotic endocarditis prophylaxis as per AHA guidelines 7. Advised follow-up in our office post D/C [phone] 8. Thank you for consultative opportunity
--- NOTE | 2020-05-02 10:01 | EKG ---
Test Reason : Blood Pressure : / mmHG Vent. Rate : 077 BPM Atrial Rate : 077 BPM P-R Int : 208 ms QRS Dur : 092 ms QT Int : 388 ms P-R-T Axes : 076 -43 222 degrees QTc Int : 439 ms SINUS RHYTHM WITH OCCASIONAL PREMATURE VENTRICULAR COMPLEXES LEFT AXIS DEVIATION /LAFB MINIMAL VOLTAGE CRITERIA FOR LVH, MAY BE NORMAL VARIANT ABNORMAL ECG WHEN COMPARED WITH ECG OF 30-APR-2020 21:56, PREMATURE VENTRICULAR COMPLEXES ARE NOW PRESENT MINIMAL CRITERIA FOR SEPTAL INFARCT ARE NO LONGER PRESENT NONSPECIFIC T WAVE ABNORMALITY HAS REPLACED INVERTED T WAVES IN INFERIOR LEADS Confirmed by Courtney Dallas ([id number]) on 05/02/2020 10:01:18 AM Referred By: Confirmed By:Courtney Dallas
--- NOTE | 2020-05-02 10:05 | EKG ---
Test Reason : Blood Pressure : / mmHG Vent. Rate : 072 BPM Atrial Rate : 072 BPM P-R Int : 200 ms QRS Dur : 090 ms QT Int : 432 ms P-R-T Axes : 065 -38 255 degrees QTc Int : 473 ms NORMAL SINUS RHYTHM LEFT AXIS DEVIATION /LAFB MODERATE VOLTAGE CRITERIA FOR LVH, MAY BE NORMAL VARIANT CANNOT RULE OUT SEPTAL INFARCT (CITED ON OR BEFORE 30-APR-2020) T WAVE ABNORMALITY, CONSIDER LATERAL ISCHEMIA ABNORMAL ECG WHEN COMPARED WITH ECG OF 30-APR-2020 15:00, T WAVE INVERSION NOW EVIDENT IN INFERIOR LEADS T WAVE INVERSION MORE EVIDENT IN LATERAL LEADS Confirmed by Courtney Dallas ([id number]) on 05/02/2020 10:04:44 AM Referred By: Confirmed By:Courtney Dallas
--- NOTE | 2020-05-02 10:08 | EKG ---
Test Reason : Blood Pressure : / mmHG Vent. Rate : 077 BPM Atrial Rate : 077 BPM P-R Int : 192 ms QRS Dur : 090 ms QT Int : 410 ms P-R-T Axes : 036 -39 137 degrees QTc Int : 463 ms NORMAL SINUS RHYTHM LEFT AXIS DEVIATION /LAFB LEFT VENTRICULAR HYPERTROPHY WITH REPOLARIZATION ABNORMALITY CANNOT RULE OUT SEPTAL INFARCT , AGE UNDETERMINED ABNORMAL ECG WHEN COMPARED WITH ECG OF 15-FEB-2020 01:27, MINIMAL CRITERIA FOR SEPTAL INFARCT ARE NOW PRESENT Confirmed by Courtney Dallas ([id number]) on 05/02/2020 10:07:52 AM Referred By: Confirmed By:Courtney Dallas
[2020-05-02] MEDS: ALBUTEROL SO4 HFA INHALER IH SCH ×4 (10:55→21:48)
[2020-05-02] MEDS ORDERED: predniSONE 20 MG TABLET (UD) PO ONE (11:00)
--- NOTE | 2020-05-02 15:23 | ECHO ---
Version: 1 Name: ANGEL LUIS RUSSO Exam: Adult Echocardiogram Study Date: 05/02/2020, 1:17 PM Age: 80 Years MMode/2D Measurements & Calculations IVSd: 1.30 cm LVIDs: 2.5 cm LVIDd: 4.2 cm LVPWd: 1.13 cm LAV (MOD-bp): 41.0 ml ACS: 1.50 cm Ao root diam: 2.5 cm LVOT diam: 2.08 cm LA dimension: 4.3 cm Doppler Measurements & Calculations MV E max parish: 147.4 cm/sec MVA(VTI): 2.00 cm MV A max parish: 102.2 cm/sec MV V2 max: 154.7 cm/sec MV mean P.7 mmHg MV max P.6 mmHg MV E/A: 1.44 Med E/e': 27.8 Lat E/e': 30.5 Med Peak E' Parish: 5.3 cm/sec Lat Peak E' [place]: 4.8 cm/sec Ao max P.7 mmHg JERI(I,D): 1.18 cm Ao mean P.4 mmHg LV V1 mean: 63.1 cm/sec Ao V2 max: 267.9 cm/sec LV V1 mean P.81 mmHg TR max parish: 264.1 cm/sec TR max P.9 mmHg Left Ventricle The left ventricle is normal in size. There is mild concentric left ventricular hypertrophy. The lef t ventricular ejection fraction is normal. Ejection Fraction = 55-60%. Atria Normal left and right atrial size and function. Mitral Valve There is moderate mitral annular calcification. There is no mitral regurgitation noted. Tricuspid Valve The tricuspid valve is not well visualized, but is grossly normal. Right ventricular systolic pressu re is normal. There is mild tricuspid regurgitation. Aortic Valve The prosthetic aortic valve is well-seated. Aortic max pressure gradient= 16 mmHg. No aortic regurgi tation is present. Pulmonic Valve The pulmonic valve is not well seen, but is grossly normal. Great Vessels The aortic root is not well visualized. Pericardium/Pleura There is no pericardial effusion. Summary Statements LV: Normal size,mild LV,normal systolic function, EF 55-60% RV: Normal Bioprosthetic aortic valve,well seated, mean PG 16 mmHg, no regurgitation MOderate mitral annular calcification Courtney Dallas 05/02/2020, 3:22 PM Ordering Physician: Reinaldo De La Cruz Performed By: JOMAR TAPIA
--- NOTE | 2020-05-02 15:36 | PN ---
Progress Note (short form) - Note Progress Note: Resting in NAD. Still with cough with white sputum and wheezing. No chest pain Intake & Output 04/29/20 04/30/20 05/01/20 05/02/20 23:59 23:59 23:59 23:59 Intake Total 1340 Balance 1340 Weight 175 lb 3.2 oz Last Vital Signs Temp Pulse Resp BP Pulse Ox 98.7 F 80 20 151/64 97 05/02/20 14:00 05/02/20 14:00 05/02/20 14:00 05/02/20 14:00 05/02/20 09:00 Active Medications Albuterol Sulfate (Ventolin 0.083% Nebulizer Soln -) 1 amp NEB RQID [facility] Last Admin: 05/02/20 07:40 Dose: Not Given Documented by: Albuterol Sulfate (Ventolin Hfa Inhaler -) 2 puff IH Q4H [facility] Albuterol/Ipratropium (Duoneb -) 1 amp NEB RTID [facility] Last Admin: 05/02/20 07:40 Dose: Not Given Documented by: Amlodipine Besylate (Norvasc -) 10 mg PO DAILY [facility] Last Admin: 05/02/20 09:46 Dose: 10 mg Documented by: Atorvastatin Calcium (Lipitor -) 40 mg PO DAILY [facility] Last Admin: 05/02/20 09:46 Dose: 40 mg Documented by: Budesonide/Formoterol Fumarate (Symbicort 160/4.5mcg -) 2 puff IH BID [facility] Last Admin: 05/02/20 09:47 Dose: 2 puff Documented by: Donepezil HCl (Aricept -) 10 mg PO DAILY [facility] Last Admin: 05/02/20 09:47 Dose: 10 mg Documented by: Enoxaparin Sodium (Lovenox -) 40 mg SQ DAILY [facility] Last Admin: 05/02/20 09:47 Dose: 40 mg Documented by: Ferrous Sulfate (Feosol -) 325 mg PO BID [facility] Last Admin: 05/02/20 09:47 Dose: 325 mg Documented by: Furosemide (Lasix -) 40 mg PO DAILY [facility] Last Admin: 05/02/20 09:46 Dose: 40 mg Documented by: Azithromycin 250 mg/ Dextrose 250 mls @ 250 mls/hr IVPB DAILY [facility] Last Admin: 08/03/20 09:48 Dose: 250 mls/hr Documented by: Insulin Aspart (Novolog Vial Sliding Scale -) 1 vial SQ ACHS [facility]; Protocol Last Admin: 05/02/20 12:17 Dose: 12 units Documented by: Insulin Detemir (Levemir Vial) 25 units SQ BID@0700,2200 [facility] Last Admin: 05/02/20 06:25 Dose: 25 units Documented by: Losartan Potassium (Cozaar -) 100 mg PO DAILY [facility] Last Admin: 05/02/20 09:47 Dose: 100 mg Documented by: Metoprolol Succinate (Toprol Xl -) 50 mg PO DAILY [facility] Last Admin: 05/02/20 09:46 Dose: 50 mg Documented by: Mirtazapine (Remeron -) 15 mg PO HS [facility] Last Admin: 05/01/20 22:09 Dose: 15 mg Documented by: Spironolactone (Aldactone -) 25 mg PO DAILY [facility] Last Admin: 05/02/20 09:46 Dose: 25 mg Documented by: Constitutional: Yes: NAD, Anxious Eyes: Yes: Conjunctiva Clear, EOM Intact HENT: Yes: Atraumatic, Normocephalic Neck: Yes: Supple, Trachea Midline Cardiovascular: Yes: Regular Rate and Rhythm Respiratory: Yes: Poor Air Entry, scattered rhonchi ...Clubbing: No Gastrointestinal: Yes: Normal Bowel Sounds, Soft. No: Tenderness Edema: No Neurological: Yes: Alert, Oriented Labs: Laboratory Results - last 24 hr 05/01/20 05/01/20 05/02/20 17:27 22:08 05:24 POC Glucometer 459 487 363 05/02/20 12:16 POC Glucometer 440 Imaging - Results Chest X-ray: Report Reviewed, Image Reviewed (no infiltrates) Assessment/Plan Acute Asthma Exacerbation CAD s/p CABG LV Diastolic Dysfunction h/o bio AVR HTN DM Hyperlipidemia - Noted and agree with Prednisone - inhaled bronchodilators & Symbicort BID - Noted ABX - glucose control while on systemic steroids - DVT prophylaxis Dr Paul
--- NOTE | 2020-05-02 15:36 | PN ---
Teaching Attending Note Name of Resident: Chaitanya Chadwick ATTENDING PHYSICIAN STATEMENT I saw and evaluated the patient. I reviewed the resident's note and discussed the case with the resident. I agree with the resident's findings and plan as documented. SUBJECTIVE: Still a bit SOB. No further chest discomfort. Cough - no sputum. No fever/chills. OBJECTIVE: Afberile, Hemodynamically Stable. SpO2 97% RA Last Vital Signs Temp Pulse Resp BP Pulse Ox 98.7 F 80 20 151/64 97 05/02/20 14:00 05/02/20 14:00 05/02/20 14:00 05/02/20 14:00 05/02/20 09:00 Heart - S1, S2, RRR Lungs - decreased air entry globally, no wheeze. Abdomen - Soft, non-tender. Bowel Sounds normal. Extremities - no calf tenderness. Neuro - AAO x 3. Tone/Power normal. Laboratory Results - last 24 hr 05/01/20 05/01/20 05/02/20 17:27 22:08 05:24 POC Glucometer [id number] 05/02/20 12:16 POC Glucometer 440 Current Medications Generic Name Dose Route Start Last Admin Trade Name Freq PRN Reason Stop Dose Admin Albuterol Sulfate 1 amp 05/01/20 08:00 05/02/20 07:40 Ventolin 0.083% Nebulizer Soln - NEB Not Given RQID YISEL Albuterol Sulfate 2 puff 05/02/20 10:00 Ventolin Hfa Inhaler - IH Q4H YISEL Albuterol/Ipratropium 1 amp 05/01/20 08:00 05/02/20 07:40 Duoneb - NEB Not Given RTID YISEL Amlodipine Besylate 10 mg 05/01/20 10:00 05/02/20 09:46 Norvasc - PO 10 mg DAILY YISEL Administration Atorvastatin Calcium 40 mg 05/01/20 10:00 05/02/20 09:46 Lipitor - PO 40 mg DAILY YISEL Administration Budesonide/Formoterol Fumarate 2 puff 04/30/20 22:00 05/02/20 09:47 Symbicort 160/4.5mcg - IH 2 puff BID YISEL Administration Donepezil HCl 10 mg 05/01/20 10:00 05/02/20 09:47 Aricept - PO 10 mg DAILY YISEL Administration Enoxaparin Sodium 40 mg 05/01/20 10:00 05/02/20 09:47 Lovenox - SQ 40 mg DAILY YISEL Administration Ferrous Sulfate 325 mg 05/01/20 22:00 05/02/20 09:47 Feosol - PO 325 mg BID YISEL Administration Furosemide 40 mg 05/01/20 12:45 05/02/20 09:46 Lasix - PO 40 mg DAILY YISEL Administration Azithromycin 250 mg/ Dextrose 250 mls @ 250 mls/hr 05/01/20 10:00 05/02/20 09:48 IVPB 250 mls/hr DAILY YISEL Administration Insulin Aspart 1 vial 04/30/20 22:00 05/02/20 12:17 Novolog Vial Sliding Scale - SQ 12 units ACHS [facility] Administration Protocol Insulin Detemir 25 units 05/01/20 12:37 05/02/20 06:25 Levemir Vial SQ 25 units BID@0700,2200 YISEL Administration Losartan Potassium 100 mg 05/01/20 10:15 05/02/20 09:47 Cozaar - PO 100 mg DAILY YISEL Administration Metoprolol Succinate 50 mg 05/01/20 10:00 05/02/20 09:46 Toprol Xl - PO 50 mg DAILY YISEL Administration Mirtazapine 15 mg 05/01/20 22:00 05/01/20 22:09 Remeron - PO 15 mg HS [facility] Administration Spironolactone 25 mg 05/01/20 10:00 05/02/20 09:46 Aldactone - PO 25 mg DAILY YISEL Administration Home Medications Medication Instructions Recorded Atorvastatin Ca [Lipitor] 40 mg DAILY 09/15/19 Albuterol 0.083% Nebulizer Isabelle 1 amp NEB RQID #25 amp 09/16/19 [Ventolin 0.083% Nebulizer Soln -] Budesonide/Formeterol Fumarate 2 inh PO BID 02/12/20 [SYMBICORT 160/4.5mcg -] Amlodipine Besylate [Norvasc -] 10 mg PO DAILY #30 tablet 02/18/20 Donepezil HCl [Aricept -] 10 mg PO DAILY 02/18/20 Empagliflozin [Jardiance] 10 mg PO DAILY 02/18/20 Furosemide [Lasix -] 40 mg PO DAILY 02/18/20 Losartan Potassium 100 mg PO DAILY 02/18/20 Metoprolol Succinate [Toprol Xl] 50 mg PO DAILY 02/18/20 Mirtazapine 15 mg PO DAILY 02/18/20 Spironolactone [Aldactone] 25 mg PO DAILY #30 tablet 02/18/20 Insulin Glargine,Hum.rec.anlog 34 unit SQ BID@0700,2200 04/30/20 [Lantus] ASSESSMENT/PLAN: 80 year old female with history of Dementia, Chronic Diastolic CHF (EF 55%), Asthma, CAD s/p LAD Stent/s/p CABG, s/p Bioprosthetic AV, HTN. HLD, DM 2, presented with increasing SOB/cough with associated chest tightness. 1. Acute Asthma Exacerbation IV Solumedrol transitioned to oral Prednisone. Continue Bronchodilator Nebs, Azithromycin TropI neg x 3. ECG - no acute changes. CXR - no acute cardiopulmonary changes. 2. DM 2, Uncontrolled, A1C 9.3 Serum Glucose > 400. Resumed on home Glargine and Novolog sliding scale. 3. HTN - uncontrolled, resumed on Metoprolol, Spironolactone, Norvasc, Losartan. 4. HLD - continue Lipitor 5. Dementia - continue Mirtazapine, Donepezil. 6. Chronic Diastolic CHF - Continue BB, Lasix, Spironolactone. Will give an additional dose of IV Lasix 40mg due to ongoing SOB. 7. Low TSH 0.3, normal free T4 (1.13) 8. Microcytosis - MCV 66.8 - Iron Deficiency - Iron Sat 14%/Ferritin 28. No evidence of acute blood loss. Will supplement Iron. No evidence of acute blood loss. FOBT ordered. Refer to GI as out-patient for further work-up if no acute bleeding. DVT Px - Lovenox SQ
[2020-05-02] MEDS ORDERED: FUROSEMIDE 40 MG/4 ML INJECTABLE VIAL IVPUSH ONE (15:39)
--- NOTE | 2020-05-02 18:29 | PN ---
Physical Exam: SUBJECTIVE: Patient seen and examined at bedside. Patient appeared slightly uncomfortable laying on her back. She was transported to the chair. Patient reported she was able to breathe better. Endorses an occasional cough and alleviated with symbicort inhailer. OBJECTIVE: Vital Signs Period Temp Pulse Resp BP Sys/Escamilla Pulse Ox Last 24 Hr 97.7 F-98.7 F 79-85 18-20 127-151/58-78 97-98 GENERAL: Awake, alert, and fully oriented, in no acute distress. HEAD: Normal with no signs of trauma. LUNGS: BILATERAL WHEEZING UPON AUSCULTATION OF THE UPPER LOBES, POOR INSPIRATION EFFORT, use of accessory muscles HEART: Regular rate and rhythm, normal S1 and S2 without murmur, rub or gallop. ABDOMEN: Soft, nontender, distended, normoactive bowel sounds, no guarding, no rebound, no masses. No hepatomegaly or splenomegaly. UPPER EXTREMITIES: 2+ pulses, warm, well-perfused. No cyanosis. No clubbing. No peripheral edema. LOWER EXTREMITIES: 2+ pulses, warm, well-perfused. No calf tenderness. No peripheral edema. PSYCHIATRIC: Cooperative. Good eye contact. Appropriate mood and affect. Laboratory Results - last 24 hr 05/01/20 05/02/20 05/02/20 22:08 05:24 12:16 POC Glucometer [id number] 05/02/20 17:15 POC Glucometer 407 Active Medications Generic Name Dose Route Start Last Admin Trade Name Freq PRN Reason Stop Dose Admin Albuterol Sulfate 1 amp 05/01/20 08:00 05/02/20 07:40 Ventolin 0.083% Nebulizer Soln - NEB Not Given RQID YISEL Albuterol Sulfate 2 puff 05/02/20 10:00 05/02/20 17:54 Ventolin Hfa Inhaler - IH 2 puff Q4H YISEL Administration Albuterol/Ipratropium 1 amp 05/01/20 08:00 05/02/20 07:40 Duoneb - NEB Not Given RTID YISEL Amlodipine Besylate 10 mg 05/01/20 10:00 05/02/20 09:46 Norvasc - PO 10 mg DAILY YISEL Administration Atorvastatin Calcium 40 mg 05/01/20 10:00 05/02/20 09:46 Lipitor - PO 40 mg DAILY YISEL Administration Budesonide/Formoterol Fumarate 2 puff 04/30/20 22:00 05/02/20 09:47 Symbicort 160/4.5mcg - IH 2 puff BID YISEL Administration Donepezil HCl 10 mg 05/01/20 10:00 05/02/20 09:47 Aricept - PO 10 mg DAILY YISEL Administration Enoxaparin Sodium 40 mg 05/01/20 10:00 05/02/20 09:47 Lovenox - SQ 40 mg DAILY YISEL Administration Ferrous Sulfate 325 mg 05/01/20 22:00 05/02/20 09:47 Feosol - PO 325 mg BID YISEL Administration Furosemide 40 mg 05/01/20 12:45 05/02/20 09:46 Lasix - PO 40 mg DAILY YISEL Administration Azithromycin 250 mg/ Dextrose 250 mls @ 250 mls/hr 05/01/20 10:00 05/02/20 09:48 IVPB 250 mls/hr DAILY YISEL Administration Insulin Aspart 1 vial 04/30/20 22:00 05/02/20 17:21 Novolog Vial Sliding Scale - SQ 12 units ACHS [facility] Administration Protocol Insulin Detemir 30 units 05/02/20 15:41 Levemir Vial SQ BID@0700,2200 [facility] Losartan Potassium 100 mg 05/01/20 10:15 05/02/20 09:47 Cozaar - PO 100 mg DAILY YISEL Administration Metoprolol Succinate 50 mg 05/01/20 10:00 05/02/20 09:46 Toprol Xl - PO 50 mg DAILY YISEL Administration Mirtazapine 15 mg 05/01/20 22:00 05/01/20 22:09 Remeron - PO 15 mg HS YISEL Administration Prednisone 40 mg 05/03/20 10:00 Deltasone - PO DAILY [facility] Spironolactone 25 mg 05/01/20 10:00 05/02/20 09:46 Aldactone - PO 25 mg DAILY YISEL Administration ASSESSMENT/PLAN: Ms. Herrera is an 80F w a h/o diastolic CHF HFpEF of 55-60% (09/14/2019), dementia, asthma exacerbation, CAD s/p stent placement of the Left anterior decending artery, s/p bioprosthetic aortic valve replacement, s/p CABG, HTN, HLD, DM type II presenting with a chief complaint of shortness of breath and cough admitted to telemetry for chest pain and shortness of breath. #Acute Asthma Exacerbation - Patient saturation 100 on RA - Patient will receive 60mg of IV prednisone and will continue 40mg of PO prednisone outpatient. - patient will continue bronchodilator nebulizer and azithro for lung inflammation - Troponins trended negatively x3 - cxr shows no acute changes #Uncontrolled DM II - Patient placed on glucose/sodium diet - BGM q6h - A1C 9.3 Serum - Glucose > 400. - Resumed on Glargine and Novolog sliding scale. #HTN - Repeat EKG - monitoring BP - Sodium/glucose diet - Metoprolol, Spironolactone, Norvasc, Losartan. #HLD - resume home Lipitor #dementia - Resume Mirtazapine, Donepezil. #Chronic Diastolic CHF - Resume BB, - Lasix, - Spironolactone. - Additional IV Lasix 40mg due to ongoing SOB #Microcytosis - Iron Deficiency anemia - MCV 66.8 - Iron Sat 14%/Ferritin 28. - No evidence of acute blood loss. - Supplemental iron DVT Px - Lovenox SQ Visit type - Emergency Visit Emergency Visit: Yes ED Registration Date: 04/30/20 Care time: The patient presented to the Emergency Department on the above date and was hospitalized for further evaluation of their emergent condition. - New Patient This patient is new to me today: No - Critical Care Critical Care patient: No - Discharge Referral Referred to [facility] Med [facility].C[facility] No - Medication Review Med list reviewed for High Risk Meds patients 65 and older: Yes ATTENDING PHYSICIAN STATEMENT I saw and evaluated the patient. I reviewed the resident's note and discussed the case with the resident. I agree with the resident's findings and plan as documented. SUBJECTIVE: OBJECTIVE: ASSESSMENT AND PLAN:
[2020-05-02] MEDS: MIRTAZAPINE 15 MG TABLET (FP) PO SCH (21:37)
[2020-05-03] MEDS: ALBUTEROL SO4 HFA INHALER IH SCH ×2 (03:06→06:06)
[2020-05-03] MEDS: INSULIN SLIDING SCALE (NOVOLOG) 1 VIAL SQ SCH ×4 (06:11→22:19)
[2020-05-03] MEDS: INSULIN (LEVEMIR) 100 UNITS/ML UNITS SQ SCH ×2 (06:11→22:04)
[2020-05-03 06:51] LABS: HEMATOCRIT 33.6 % (32.4-45.2); HEMOGLOBIN 10.6 GM/dL (10.7-15.3); MCH 21.2 pg (25.7-33.7); MCHC 31.6 g/dl (32.0-36.0); PLATELET COUNT 278 K/MM3 (134-434); RBC 5.01 M/mm3 (3.60-5.2); RDW 18.3 % (11.6-15.6); WHITE BLOOD COUNT 12.6 K/mm3 (4.0-10.0)
--- NOTE | 2020-05-03 07:21 | PN ---
Progress Note (short form) - Note Progress Note: Chief Complaint: Events noted, notes reviewed, resting in bed continues to report persistence of dyspnea but clinically improved, denies any chest discomfort, audible wheeze is noted History of Present Illness: Seen and examined on telemetry. Events noted, notes reviewed, Events noted, notes reviewed, resting in bed continues to report persistence of dyspnea but clinically improved, denies any chest discomfort, audible wheeze is noted Medications: Current Medications Generic Name Dose Route Start Last Admin Trade Name Freq PRN Reason Stop Dose Admin Albuterol Sulfate 1 amp 05/01/20 08:00 05/02/20 07:40 Ventolin 0.083% Nebulizer Soln - NEB Not Given RQID YISEL Albuterol Sulfate 2 puff 05/02/20 10:00 05/03/20 06:06 Ventolin Hfa Inhaler - IH 2 puff Q4H YISEL Administration Albuterol/Ipratropium 1 amp 05/01/20 08:00 05/02/20 07:40 Duoneb - NEB Not Given RTID YISEL Amlodipine Besylate 10 mg 05/01/20 10:00 05/02/20 09:46 Norvasc - PO 10 mg DAILY YISEL Administration Atorvastatin Calcium 40 mg 05/01/20 10:00 05/02/20 09:46 Lipitor - PO 40 mg DAILY YISEL Administration Budesonide/Formoterol Fumarate 2 puff 04/30/20 22:00 05/02/20 21:48 Symbicort 160/4.5mcg - IH 2 puff BID YISEL Administration Donepezil HCl 10 mg 05/01/20 10:00 05/02/20 09:47 Aricept - PO 10 mg DAILY YISEL Administration Enoxaparin Sodium 40 mg 05/01/20 10:00 05/02/20 09:47 Lovenox - SQ 40 mg DAILY YISEL Administration Ferrous Sulfate 325 mg 05/01/20 22:00 05/02/20 21:38 Feosol - PO 325 mg BID YISEL Administration Furosemide 40 mg 05/01/20 12:45 05/02/20 09:46 Lasix - PO 40 mg DAILY YISEL Administration Azithromycin 250 mg/ Dextrose 250 mls @ 250 mls/hr 05/01/20 10:00 05/02/20 09:48 IVPB 250 mls/hr DAILY YISEL Administration Insulin Aspart 1 vial 05/02/20 19:05 05/03/20 06:11 Novolog Vial Sliding Scale - SQ 8 unit ACHS YISEL Administration Protocol Insulin Detemir 30 units 05/02/20 15:41 05/03/20 06:11 Levemir Vial SQ 30 unit BID@0700,2200 YISEL Administration Losartan Potassium 100 mg 05/01/20 10:15 05/02/20 09:47 Cozaar - PO 100 mg DAILY YISEL Administration Metoprolol Succinate 50 mg 05/01/20 10:00 05/02/20 09:46 Toprol Xl - PO 50 mg DAILY YISEL Administration Mirtazapine 15 mg 05/01/20 22:00 05/02/20 21:37 Remeron - PO 15 mg HS YISEL Administration Prednisone 40 mg 05/03/20 10:00 Deltasone - PO DAILY YISEL Spironolactone 25 mg 05/01/20 10:00 05/02/20 09:46 Aldactone - PO 25 mg DAILY YISEL Administration Review of Systems - Review of Systems Constitutional: denies: Chills, Fever Cardiovascular: As noted above Respiratory: reports: Cough denies: Sputum Production Gastrointestinal: denies: Nausea, Vomiting, diarrhea, Constipation or Abdominal Pain Musculoskeletal: denies: Joint Pain Neurological: denies: Headache Vital Signs: Last Vital Signs Temp Pulse Resp BP Pulse Ox 97.9 F 80 20 159/79 94 L 05/03/20 05:00 05/03/20 05:00 05/03/20 05:00 05/03/20 05:00 05/03/20 01:29 Intake & Output 04/30/20 05/01/20 05/02/20 05/03/20 23:59 23:59 23:59 23:59 Intake Total 1340 1150 240 Balance 1340 1150 240 Weight 175 lb 3.2 oz 180 lb 3.2 oz Neck: Supple Negative JVD Respiratory: Bilateral scattered rhonchi Cardiovascular: S1 S2 Regular Rate and Rhythm Gastrointestinal: Soft Benign Normal Bowel Sounds Ext: No Edema Labs: CBC, BMP 05/03/20 05:17 05/03/20 05:17 Hepatic Panel Total Bilirubin 0.4 mg/dL (0.2-1) 05/01/20 05:28 AST 14 U/L (15-37) L 05/01/20 05:28 ALT 21 U/L (13-61) 05/01/20 05:28 Alkaline Phosphatase 119 U/L (45-117) H 05/01/20 05:28 Albumin 3.4 g/dl (3.4-5.0) 05/01/20 05:28 Assessment/Plan 1. Acute hypoxic respiratory failure related to acute on chronic exacerbation of reactive airway disease/bronchial asthma 2. Coronary artery disease post PCI angina pectoris, clinically stable 3. Diastolic left ventricular dysfunction with chronic class I [place] [employer] classification left ventricular failure, clinically compensated/euvolemic- BNP elevation is probably chronic 4. Post SAVR/bioprosthesis 5. HTN/hypertensive heart disease 6. DM 7. Hypercholesterolemia 8. Chronic kidney disease 9. Anemia PLAN: 1. Bronchodilators and IV steroids as per the pulmonary team/primary team 2. Continue Toprol-XL and dose titration as needed 3. Continue Norvasc 4. Continue Cozaar 5. Continue Lasix and Aldactone therapies with close monitoring of renal function and electrolytes 6. Continue Ecotrin therapy with close monitoring of Hgb level 7. Continue Lipitor therapy 8. Advised antibiotic endocarditis prophylaxis as per AHA guidelines/Patient is post surgical AVR- bioprosthesis 9. Advised follow-up in our office post D/C [phone] Jluis Melchor MD
--- NOTE | 2020-05-03 08:03 | PN ---
Progress Note, Physician History of Present Illness: pulmonary alert,feeling better,less dyspneic,less congested,+ cough - Current Medication List Current Medications: Active Medications Albuterol Sulfate (Ventolin 0.083% Nebulizer Soln -) 1 amp NEB RQID [facility] Last Admin: 05/02/20 07:40 Dose: Not Given Documented by: Albuterol Sulfate (Ventolin Hfa Inhaler -) 2 puff IH Q4H [facility] Last Admin: 05/03/20 06:06 Dose: 2 puff Documented by: Albuterol/Ipratropium (Duoneb -) 1 amp NEB RTID [facility] Last Admin: 05/02/20 07:40 Dose: Not Given Documented by: Amlodipine Besylate (Norvasc -) 10 mg PO DAILY [facility] Last Admin: 05/02/20 09:46 Dose: 10 mg Documented by: Atorvastatin Calcium (Lipitor -) 40 mg PO DAILY [facility] Last Admin: 05/02/20 09:46 Dose: 40 mg Documented by: Budesonide/Formoterol Fumarate (Symbicort 160/4.5mcg -) 2 puff IH BID [facility] Last Admin: 05/02/20 21:48 Dose: 2 puff Documented by: Donepezil HCl (Aricept -) 10 mg PO DAILY [facility] Last Admin: 05/02/20 09:47 Dose: 10 mg Documented by: Enoxaparin Sodium (Lovenox -) 40 mg SQ DAILY [facility] Last Admin: 05/02/20 09:47 Dose: 40 mg Documented by: Ferrous Sulfate (Feosol -) 325 mg PO BID [facility] Last Admin: 05/02/20 21:38 Dose: 325 mg Documented by: Furosemide (Lasix -) 40 mg PO DAILY [facility] Last Admin: 05/02/20 09:46 Dose: 40 mg Documented by: Azithromycin 250 mg/ Dextrose 250 mls @ 250 mls/hr IVPB DAILY [facility] Last Admin: 05/02/20 09:48 Dose: 250 mls/hr Documented by: Insulin Aspart (Novolog Vial Sliding Scale -) 1 vial SQ ACHS [facility]; Protocol Last Admin: 05/03/20 06:11 Dose: 8 unit Documented by: Insulin Detemir (Levemir Vial) 30 units SQ BID@0700,2200 [facility] Last Admin: 05/03/20 06:11 Dose: 30 unit Documented by: Losartan Potassium (Cozaar -) 100 mg PO DAILY [facility] Last Admin: 05/02/20 09:47 Dose: 100 mg Documented by: Metoprolol Succinate (Toprol Xl -) 50 mg PO DAILY [facility] Last Admin: 05/02/20 09:46 Dose: 50 mg Documented by: Mirtazapine (Remeron -) 15 mg PO HS [facility] Last Admin: 05/02/20 21:37 Dose: 15 mg Documented by: Prednisone (Deltasone -) 40 mg PO DAILY [facility] Spironolactone (Aldactone -) 25 mg PO DAILY [facility] Last Admin: 05/02/20 09:46 Dose: 25 mg Documented by: - Objective Vital Signs: Vital Signs Temperature 97.9 F 05/03/20 05:00 Pulse Rate 80 05/03/20 05:00 Respiratory Rate 20 05/03/20 05:00 Blood Pressure 159/79 05/03/20 05:00 O2 Sat by Pulse Oximetry (%) 94 L 05/03/20 01:29 Constitutional: Yes: Well Nourished, Calm Eyes: Yes: WNL HENT: Yes: WNL Neck: Yes: WNL Cardiovascular: Yes: Regular Rate and Rhythm, S1, S2 Respiratory: Yes: Rhonchi (scattered makenzie rhonchi) Gastrointestinal: Yes: Normal Bowel Sounds, Soft Extremities: Yes: WNL Edema: No Labs: CBC, BMP 05/03/20 05:17 Problem List - Problems (1) Asthma exacerbation Code(s): J45.901 - UNSPECIFIED ASTHMA WITH (ACUTE) EXACERBATION Qualifiers: Asthma severity: unspecified severity Asthma persistence: unspecified Qualified Code(s): J45.901 - Unspecified asthma with (acute) exacerbation (2) HTN (hypertension) Code(s): I10 - ESSENTIAL (PRIMARY) HYPERTENSION Qualifiers: Hypertension type: unspecified Qualified Code(s): I10 - Essential (primary) hypertension (3) Acute respiratory distress Code(s): R06.03 - ACUTE RESPIRATORY DISTRESS (4) Hyperlipidemia Code(s): E78.5 - HYPERLIPIDEMIA, UNSPECIFIED Qualifiers: Hyperlipidemia type: pure hypercholesterolemia Qualified Code(s): E78.00 - Pure hypercholesterolemia, unspecified; E78.0 - Pure hypercholesterolemia (5) S/P AVR (aortic valve replacement) Code(s): Z95.2 - PRESENCE OF PROSTHETIC HEART VALVE Assessment/Plan Assessment/Plan Acute Asthma Exacerbation CAD s/p CABG LV Diastolic Dysfunction h/o bio AVR HTN DM Hyperlipidemia - Prednisone - inhaled bronchodilators - O2 to keep Spo2 >90% - antibiotics - glucose control while on systemic steroids - DVT prophylaxis DR MA
[2020-05-03 08:09] LABS: BLOOD UREA NITROGEN 41.9 mg/dL (7-18); CALCIUM 8.4 mg/dL (8.5-10.1); CREATININE 1.3 mg/dL (0.55-1.3); MAGNESIUM 2.8 mg/dL (1.8-2.4); PHOSPHOROUS 4.3 mg/dL (2.5-4.9); POTASSIUM 4.3 mmol/L (3.5-5.1)
[2020-05-03] MEDS: amLODIPine BESYLATE 10 MG TABLET (FP) PO SCH (09:57)
[2020-05-03] MEDS: FUROSEMIDE 40 MG TABLET (FP) PO SCH (09:57)
[2020-05-03] MEDS: predniSONE 20 MG TABLET (UD) PO SCH (09:57)
[2020-05-03] MEDS: ATORVASTATIN CA 40 MG TABLET (FP) PO SCH (09:57)
[2020-05-03] MEDS: LOSARTAN POTASSIUM 50 MG TABLET (FP) PO SCH (09:58)
[2020-05-03] MEDS: FERROUS SO4 325 MG TABLET (FP) PO SCH ×2 (09:58→22:04)
[2020-05-03] MEDS: SPIRONOLACTONE 25 MG TABLET PO SCH (09:58)
[2020-05-03] MEDS: BUDESONIDE/FORMETEROL FUMARATE 160/4.5 mcg INHALER IH SCH ×2 (09:59→22:12)
[2020-05-03] MEDS: DONEPEZIL HCL 10 MG TABLET (FP) PO SCH (10:00)
[2020-05-03] MEDS: ENOXAPARIN NA (PORCINE) 40 MG/0.4 ML DISP.SYRIN SQ SCH (10:00)
[2020-05-03] MEDS: AZITHROMYCIN IVPB 250 MG in DEXTROSE 5%-WATER - 250 ML IVPB SCH (10:01)
[2020-05-03] MEDS: ALBUTEROL SO4 0.083% IH SOL 2.5 MG/3 ML VIAL.NEB. NEB SCH (12:34)
[2020-05-03] MEDS: PANTOPRAZOLE 40 MG TABLET PO SCH (13:20)
--- NOTE | 2020-05-03 14:18 | PN ---
Physical Exam: SUBJECTIVE: Patient seen and examined at bedside. Patient is enthusastic to go home. Patient denies overnight events. Patient endorses having a mild cough occasionally. OBJECTIVE: Vital Signs Period Temp Pulse Resp BP Sys/Escamilla Pulse Ox Last 24 Hr 97.9 F-98.9 F 80-83 20-20 150-159/63-80 93-95 GENERAL: The patient is awake, alert, and fully oriented, in no acute distress. LUNGS: Wheezing has decreased, extremely poor inspiratory effort. HEART: Regular rate and rhythm, S1, S2 without murmur, rub or gallop. ABDOMEN: Soft, nontender, nondistended, normoactive bowel sounds, no guarding, no rebound, no hepatosplenomegaly, no masses. EXTREMITIES: 2+ pulses, warm, well-perfused, no edema. SKIN: Warm, dry, normal turgor, no rashes or lesions noted Laboratory Results - last 24 hr 04/30/20 05/02/20 05/02/20 22:00 17:15 21:40 WBC RBC Hgb Hct MCV MCH MCHC RDW Plt Count MPV Sodium Potassium Chloride Carbon Dioxide Anion Gap BUN Creatinine Est GFR (CKD-EPI)AfAm Est GFR (CKD-EPI)NonAf POC Glucometer 407 402 Random Glucose Calcium Phosphorus Magnesium COVID-19 (JAMES) Not detected 05/03/20 05/03/20 05/03/20 05:17 05:17 05:39 WBC 12.6 H RBC 5.01 Hgb 10.6 L Hct 33.6 MCV 67.0 L MCH 21.2 L MCHC 31.6 L RDW 18.3 H Plt Count 278 MPV 9.0 Sodium 138 Potassium 4.3 Chloride 103 Carbon Dioxide 28 Anion Gap 7 L BUN 41.9 H Creatinine 1.3 Est GFR (CKD-EPI)AfAm 44.24 Est GFR (CKD-EPI)NonAf 38.17 POC Glucometer 266 Random Glucose 265 H Calcium 8.4 L Phosphorus 4.3 Magnesium 2.8 H COVID-19 (JAMES) 05/03/20 11:45 WBC RBC Hgb Hct MCV MCH MCHC RDW Plt Count MPV Sodium Potassium Chloride Carbon Dioxide Anion Gap BUN Creatinine Est GFR (CKD-EPI)AfAm Est GFR (CKD-EPI)NonAf POC Glucometer 353 Random Glucose Calcium Phosphorus Magnesium COVID-19 (JAMES) Active Medications Generic Name Dose Route Start Last Admin Trade Name Juanjose PRN Reason Stop Dose Admin Albuterol Sulfate 1 amp 05/01/20 08:00 05/03/20 12:34 Ventolin 0.083% Nebulizer Soln - NEB 1 amp RQID YISEL Administration Albuterol/Ipratropium 1 amp 05/03/20 12:30 Duoneb - NEB RTID YISEL Amlodipine Besylate 10 mg 05/01/20 10:00 05/03/20 09:57 Norvasc - PO 10 mg DAILY YISEL Administration Atorvastatin Calcium 40 mg 05/01/20 10:00 05/03/20 09:57 Lipitor - PO 40 mg DAILY YISEL Administration Budesonide/Formoterol Fumarate 2 puff 04/30/20 22:00 05/03/20 09:59 Symbicort 160/4.5mcg - IH 2 puff BID YISEL Administration Donepezil HCl 10 mg 05/01/20 10:00 05/03/20 10:00 Aricept - PO 10 mg DAILY YISEL Administration Enoxaparin Sodium 40 mg 05/01/20 10:00 05/03/20 10:00 Lovenox - SQ 40 mg DAILY YISEL Administration Ferrous Sulfate 325 mg 05/01/20 22:00 05/03/20 09:58 Feosol - PO 325 mg BID YISEL Administration Furosemide 40 mg 05/01/20 12:45 05/03/20 09:57 Lasix - PO 40 mg DAILY YISEL Administration Azithromycin 250 mg/ Dextrose 250 mls @ 250 mls/hr 05/01/20 10:00 05/03/20 10:01 IVPB 250 mls/hr DAILY YISEL Administration Insulin Aspart 1 vial 05/02/20 19:05 05/03/20 11:53 Novolog Vial Sliding Scale - SQ 14 unit ACHS [facility] Administration Protocol Insulin Detemir 30 units 05/02/20 15:41 05/03/20 06:11 Levemir Vial SQ 30 unit BID@0700,2200 YISEL Administration Losartan Potassium 100 mg 05/01/20 10:15 05/03/20 09:58 Cozaar - PO 100 mg DAILY YISEL Administration Metoprolol Succinate 50 mg 05/01/20 10:00 05/03/20 09:58 Toprol Xl - PO 50 mg DAILY YISEL Administration Mirtazapine 15 mg 05/01/20 22:00 05/02/20 21:37 Remeron - PO 15 mg HS YISEL Administration Pantoprazole Sodium 40 mg 05/03/20 12:45 Protonix - PO DAILY YISEL Prednisone 40 mg 05/03/20 10:00 05/03/20 09:57 Deltasone - PO 40 mg DAILY YISEL Administration Spironolactone 25 mg 05/01/20 10:00 05/03/20 09:58 Aldactone - PO 25 mg DAILY YISEL Administration ASSESSMENT/PLAN: Ms. Herrera is an 80F w a h/o diastolic CHF HFpEF of 55-60% (09/14/2019), dementia, asthma exacerbation, CAD s/p stent placement of the Left anterior decending artery, s/p bioprosthetic aortic valve replacement, s/p CABG, HTN, HLD, DM type II presenting with a chief complaint of shortness of breath and cough admitted to telemetry for chest pain and shortness of breath. # Acute Asthma Exacerbation - Patient saturation 93 on RA - PENDING PT evaluation - will be seen tomorrow - Patient will receive 60mg of IV prednisone and will continue 40mg of PO prednisone outpatient. - patient will continue bronchodilator nebulizer and azithro for lung inflammation - Troponins trended negatively x3 - cxr shows no acute changes #Uncontrolled DM II - Patient placed on glucose/sodium diet - BGM q6h - A1C 9.3 Serum - Glucose > 400. - Resumed on Glargine and Novolog sliding scale. #HTN - Repeat EKG - monitoring BP - Sodium/glucose diet - Metoprolol, Spironolactone, Norvasc, Losartan. #dementia - Resume Mirtazapine, Donepezil. #Chronic Diastolic CHF - Resume BB, - Lasix, - Spironolactone. - Additional IV Lasix 40mg due to ongoing SOB #Microcytosis - Iron Deficiency anemia - MCV 66.8 - Iron Sat 14%/Ferritin 28. - No evidence of acute blood loss. - Supplemental iron DVT Px - Lovenox SQ Visit type - Emergency Visit Emergency Visit: Yes ED Registration Date: 04/30/20 Care time: The patient presented to the Emergency Department on the above date and was hospitalized for further evaluation of their emergent condition. - New Patient This patient is new to me today: No - Critical Care Critical Care patient: No - Discharge Referral Referred to [facility] Med P.C.: No - Medication Review Med list reviewed for High Risk Meds patients 65 and older: Yes ATTENDING PHYSICIAN STATEMENT I saw and evaluated the patient. I reviewed the resident's note and discussed the case with the resident. I agree with the resident's findings and plan as documented. SUBJECTIVE: OBJECTIVE: ASSESSMENT AND PLAN:
--- NOTE | 2020-05-03 15:24 | PN ---
Teaching Attending Note Name of Resident: Chaitanya Chadwick ATTENDING PHYSICIAN STATEMENT I saw and evaluated the patient. I reviewed the resident's note and discussed the case with the resident. I agree with the resident's findings and plan as documented. SUBJECTIVE: Seen and examined at bedside. Patient reports she is feeling a little better, but is weak. Satting in the mid to low 90s on room air but has very poor air movement. PT to evaluate OBJECTIVE: Last Vital Signs Temp Pulse Resp BP Pulse Ox 98 F 75 20 132/55 L 93 L 05/03/20 14:10 05/03/20 14:10 05/03/20 14:10 05/03/20 14:10 05/03/20 09:00 PE: Per resident note Labs/Imaging: reviewed ASSESSMENT AND PLAN: 80 year old female with history of Dementia, Chronic Diastolic CHF (EF 55%), Asthma, CAD s/p LAD Stent/s/p CABG, s/p Bioprosthetic AV, HTN. HLD, DM 2, presented with increasing SOB/cough with associated chest tightness. # Acute Asthma Exacerbation IV Solumedrol transitioned to oral Prednisone. Continue Bronchodilator Nebs, Azithromycin TropI neg x 3. ECG - no acute changes. CXR - no acute cardiopulmonary changes. # DM 2, Uncontrolled, A1C 9.3 Serum Glucose > 400 2/2 steroids Resumed on home Glargine -start novolog 12U TIDAC in setting of steroid induced hyperglycemia -sliding scale # HTN -cont home meds # HLD - continue Lipitor # Dementia - continue Mirtazapine, Donepezil. # Chronic Diastolic CHF - Continue BB, Lasix, Spironolactone. #Iron deficiency anemia Iron Sat 14%/Ferritin 28. No evidence of acute blood loss. Will supplement Iron. No evidence of acute blood loss. FOBT ordered. Refer to GI as out-patient for further work-up if no acute bleeding. DVT Px - Lovenox SQ
[2020-05-03] MEDS ORDERED: ALBUTEROL SO4 0.083% IH SOL 2.5 MG/3 ML VIAL.NEB. NEB PRN (15:40)
[2020-05-03] MEDS: ALBUTEROL SO4 2.5/IPRATROPIUM 0.5 INH SOL 3 ML VIAL.NEB. NEB SCH ×2 (16:20→20:52)
[2020-05-03] MEDS: INSULIN (NOVOLOG) ASPART 100 UNITS/ML 10ML VIAL SQ SCH (17:52)
[2020-05-03] MEDS: MIRTAZAPINE 15 MG TABLET (FP) PO SCH (22:04)
[2020-05-04] MEDS: INSULIN SLIDING SCALE (NOVOLOG) 1 VIAL SQ SCH ×4 (06:27→21:50)
[2020-05-04] MEDS: INSULIN (LEVEMIR) 100 UNITS/ML UNITS SQ SCH ×2 (06:29→21:48)
[2020-05-04] MEDS: INSULIN (NOVOLOG) ASPART 100 UNITS/ML 10ML VIAL SQ SCH ×3 (06:46→17:26)
[2020-05-04 07:49] LABS: HEMATOCRIT 33.7 % (32.4-45.2); HEMOGLOBIN 10.8 GM/dL (10.7-15.3); MCH 21.3 pg (25.7-33.7); MEAN CELL VOLUME 66.7 fl (80-96); MEAN PLT VOLUME 8.6 fl (7.5-11.1); PLATELET COUNT 268 K/MM3 (134-434); RBC 5.05 M/mm3 (3.60-5.2); RDW 18.2 % (11.6-15.6); WHITE BLOOD COUNT 9.7 K/mm3 (4.0-10.0)
[2020-05-04 08:24] LABS: BLOOD UREA NITROGEN 31.1 mg/dL (7-18); CREATININE 1.1 mg/dL (0.55-1.3); MAGNESIUM 2.7 mg/dL (1.8-2.4); PHOSPHOROUS 3.8 mg/dL (2.5-4.9); POTASSIUM 3.6 mmol/L (3.5-5.1)
[2020-05-04] MEDS: ALBUTEROL SO4 2.5/IPRATROPIUM 0.5 INH SOL 3 ML VIAL.NEB. NEB SCH ×3 (08:24→19:55)
[2020-05-04] MEDS: ATORVASTATIN CA 40 MG TABLET (FP) PO SCH (09:25)
[2020-05-04] MEDS: FUROSEMIDE 40 MG TABLET (FP) PO SCH (09:26)
[2020-05-04] MEDS: FERROUS SO4 325 MG TABLET (FP) PO SCH ×2 (09:26→21:48)
[2020-05-04] MEDS: DONEPEZIL HCL 10 MG TABLET (FP) PO SCH (09:26)
[2020-05-04] MEDS: predniSONE 20 MG TABLET (UD) PO SCH (09:26)
[2020-05-04] MEDS: SPIRONOLACTONE 25 MG TABLET PO SCH (09:26)
[2020-05-04] MEDS: amLODIPine BESYLATE 10 MG TABLET (FP) PO SCH (09:26)
[2020-05-04] MEDS: PANTOPRAZOLE 40 MG TABLET PO SCH (09:26)
[2020-05-04] MEDS: AZITHROMYCIN IVPB 250 MG in DEXTROSE 5%-WATER - 250 ML IVPB SCH (09:27)
[2020-05-04] MEDS: BUDESONIDE/FORMETEROL FUMARATE 160/4.5 mcg INHALER IH SCH ×2 (09:27→21:52)
[2020-05-04] MEDS: ENOXAPARIN NA (PORCINE) 40 MG/0.4 ML DISP.SYRIN SQ SCH (09:27)
[2020-05-04] MEDS: LOSARTAN POTASSIUM 50 MG TABLET (FP) PO SCH (09:27)
--- NOTE | 2020-05-04 11:08 | PN ---
Progress Note, Physician History of Present Illness: PULMONARY ALERT,FEELING WEAK ,TIRED, OOB-CHAIR - Current Medication List Current Medications: Active Medications Albuterol Sulfate (Ventolin 0.083% Nebulizer Soln -) 1 amp NEB Q8H PRN PRN Reason: SHORT OF BREATH/WHEEZING Albuterol/Ipratropium (Duoneb -) 1 amp NEB RTID [facility] Last Admin: 05/04/20 08:24 Dose: 1 amp Documented by: Amlodipine Besylate (Norvasc -) 10 mg PO DAILY [facility] Last Admin: 05/04/20 09:26 Dose: 10 mg Documented by: Atorvastatin Calcium (Lipitor -) 40 mg PO DAILY [facility] Last Admin: 05/04/20 09:25 Dose: 40 mg Documented by: Budesonide/Formoterol Fumarate (Symbicort 160/4.5mcg -) 2 puff IH BID [facility] Last Admin: 05/04/20 09:27 Dose: 2 puff Documented by: Donepezil HCl (Aricept -) 10 mg PO DAILY [facility] Last Admin: 05/04/20 09:26 Dose: 10 mg Documented by: Enoxaparin Sodium (Lovenox -) 40 mg SQ DAILY [facility] Last Admin: 05/04/20 09:27 Dose: 40 mg Documented by: Ferrous Sulfate (Feosol -) 325 mg PO BID [facility] Last Admin: 05/04/20 09:26 Dose: 325 mg Documented by: Furosemide (Lasix -) 40 mg PO DAILY [facility] Last Admin: 05/04/20 09:26 Dose: 40 mg Documented by: Azithromycin 250 mg/ Dextrose 250 mls @ 250 mls/hr IVPB DAILY [facility] Last Admin: 05/04/20 09:27 Dose: 250 mls/hr Documented by: Insulin Aspart (Novolog Vial Sliding Scale -) 1 vial SQ ACHS [facility]; Protocol Last Admin: 05/04/20 06:27 Dose: 2 unit Documented by: Insulin Aspart (Novolog Vial) 12 units SQ TIDAC [facility]; Protocol Last Admin: 05/04/20 06:46 Dose: Not Given Documented by: Insulin Detemir (Levemir Vial) 30 units SQ BID@0700,2200 [facility] Last Admin: 05/04/20 06:29 Dose: 30 unit Documented by: Losartan Potassium (Cozaar -) 100 mg PO DAILY [facility] Last Admin: 05/04/20 09:27 Dose: 100 mg Documented by: Metoprolol Succinate (Toprol Xl -) 50 mg PO DAILY [facility] Last Admin: 05/04/20 09:25 Dose: 50 mg Documented by: Mirtazapine (Remeron -) 15 mg PO HS [facility] Last Admin: 05/03/20 22:04 Dose: 15 mg Documented by: Pantoprazole Sodium (Protonix -) 40 mg PO DAILY [facility] Last Admin: 05/04/20 09:26 Dose: 40 mg Documented by: Prednisone (Deltasone -) 40 mg PO DAILY [facility] Last Admin: 05/04/20 09:26 Dose: 40 mg Documented by: Spironolactone (Aldactone -) 25 mg PO DAILY [facility] Last Admin: 05/04/20 09:26 Dose: 25 mg Documented by: - Objective Vital Signs: Vital Signs Temperature 98.2 F 05/04/20 09:57 Pulse Rate 74 05/04/20 09:57 Respiratory Rate 18 05/04/20 09:57 Blood Pressure 153/64 05/04/20 09:57 O2 Sat by Pulse Oximetry (%) 95 05/04/20 09:57 Constitutional: Yes: Well Nourished, Calm Eyes: Yes: WNL HENT: Yes: WNL Neck: Yes: WNL Cardiovascular: Yes: Regular Rate and Rhythm, S1, S2 Respiratory: Yes: Diminished Gastrointestinal: Yes: Normal Bowel Sounds, Soft, Abdomen, Obese Extremities: Yes: WNL Edema: No Labs: CBC, BMP 05/04/20 05:58 05/04/20 05:58 Problem List - Problems (1) Asthma exacerbation Code(s): J45.901 - UNSPECIFIED ASTHMA WITH (ACUTE) EXACERBATION Qualifiers: Asthma severity: unspecified severity Asthma persistence: unspecified Qualified Code(s): J45.901 - Unspecified asthma with (acute) exacerbation (2) HTN (hypertension) Code(s): I10 - ESSENTIAL (PRIMARY) HYPERTENSION Qualifiers: Hypertension type: unspecified Qualified Code(s): I10 - Essential (primary) hypertension (3) Acute respiratory distress Code(s): R06.03 - ACUTE RESPIRATORY DISTRESS (4) Hyperlipidemia Code(s): E78.5 - HYPERLIPIDEMIA, UNSPECIFIED Qualifiers: Hyperlipidemia type: pure hypercholesterolemia Qualified Code(s): E78.00 - Pure hypercholesterolemia, unspecified; E78.0 - Pure hypercholesterolemia (5) S/P AVR (aortic valve replacement) Code(s): Z95.2 - PRESENCE OF PROSTHETIC HEART VALVE Assessment/Plan Assessment/Plan Acute Asthma Exacerbation improving CAD s/p CABG LV Diastolic Dysfunction h/o bio AVR HTN DM Hyperlipidemia - Prednisone - inhaled bronchodilators - O2 to keep Spo2 >90% - antibiotics - glucose control while on systemic steroids - DVT prophylaxis DR MA
--- NOTE | 2020-05-04 11:20 | PN ---
Progress Note, Physician History of Present Illness: Ms. Herrera is an 80F w a h/o diastolic CHF HFpEF of 55-60% (09/14/2019), asthma exacerbation, CAD s/p stent placement of the Left anterior decending artery, s/p bioprosthetic aortic valve replacement, s/p CABG, HTN, HLD, DM type II admitted with worsening SOB, productive cough and wheezes since improving. Last office visit 03/15/2020. - Current Medication List Current Medications: Active Medications Albuterol Sulfate (Ventolin 0.083% Nebulizer Soln -) 1 amp NEB Q8H PRN PRN Reason: SHORT OF BREATH/WHEEZING Albuterol/Ipratropium (Duoneb -) 1 amp NEB RTID [facility] Last Admin: 05/04/20 08:24 Dose: 1 amp Documented by: Amlodipine Besylate (Norvasc -) 10 mg PO DAILY [facility] Last Admin: 05/04/20 09:26 Dose: 10 mg Documented by: Atorvastatin Calcium (Lipitor -) 40 mg PO DAILY [facility] Last Admin: 05/04/20 09:25 Dose: 40 mg Documented by: Budesonide/Formoterol Fumarate (Symbicort 160/4.5mcg -) 2 puff IH BID [facility] Last Admin: 05/04/20 09:27 Dose: 2 puff Documented by: Donepezil HCl (Aricept -) 10 mg PO DAILY [facility] Last Admin: 05/04/20 09:26 Dose: 10 mg Documented by: Enoxaparin Sodium (Lovenox -) 40 mg SQ DAILY [facility] Last Admin: 05/04/20 09:27 Dose: 40 mg Documented by: Ferrous Sulfate (Feosol -) 325 mg PO BID [facility] Last Admin: 05/04/20 09:26 Dose: 325 mg Documented by: Furosemide (Lasix -) 40 mg PO DAILY [facility] Last Admin: 05/04/20 09:26 Dose: 40 mg Documented by: Azithromycin 250 mg/ Dextrose 250 mls @ 250 mls/hr IVPB DAILY [facility] Last Admin: 05/04/20 09:27 Dose: 250 mls/hr Documented by: Insulin Aspart (Novolog Vial Sliding Scale -) 1 vial SQ ACHS [facility]; Protocol Last Admin: 05/04/20 06:27 Dose: 2 unit Documented by: Insulin Aspart (Novolog Vial) 12 units SQ TIDAC [facility]; Protocol Last Admin: 05/04/20 06:46 Dose: Not Given Documented by: Insulin Detemir (Levemir Vial) 30 units SQ BID@0700,2200 [facility] Last Admin: 05/04/20 06:29 Dose: 30 unit Documented by: Losartan Potassium (Cozaar -) 100 mg PO DAILY [facility] Last Admin: 05/04/20 09:27 Dose: 100 mg Documented by: Metoprolol Succinate (Toprol Xl -) 50 mg PO DAILY [facility] Last Admin: 05/04/20 09:25 Dose: 50 mg Documented by: Mirtazapine (Remeron -) 15 mg PO HS [facility] Last Admin: 05/03/20 22:04 Dose: 15 mg Documented by: Pantoprazole Sodium (Protonix -) 40 mg PO DAILY [facility] Last Admin: 05/04/20 09:26 Dose: 40 mg Documented by: Prednisone (Deltasone -) 40 mg PO DAILY [facility] Last Admin: 05/04/20 09:26 Dose: 40 mg Documented by: Spironolactone (Aldactone -) 25 mg PO DAILY [facility] Last Admin: 05/04/20 09:26 Dose: 25 mg Documented by: - Objective Vital Signs: Vital Signs Temperature 98.2 F 05/04/20 09:57 Pulse Rate 74 05/04/20 09:57 Respiratory Rate 18 05/04/20 09:57 Blood Pressure 153/64 05/04/20 09:57 O2 Sat by Pulse Oximetry (%) 95 05/04/20 09:57 Constitutional: Yes: No Distress, Calm Neck: Yes: Supple Cardiovascular: Yes: Regular Rate and Rhythm Respiratory: Yes: Regular, Diminished, SOB Gastrointestinal: Yes: Normal Bowel Sounds, Soft, Abdomen, Obese Edema: No Labs: CBC, BMP 05/04/20 05:58 05/04/20 05:58 Problem List - Problems (1) Hypertensive cardiomegaly without heart failure Code(s): I11.9 - HYPERTENSIVE HEART DISEASE WITHOUT HEART FAILURE (2) Asthma exacerbation Code(s): J45.901 - UNSPECIFIED ASTHMA WITH (ACUTE) EXACERBATION Qualifiers: Asthma severity: unspecified severity Asthma persistence: unspecified Qualified Code(s): J45.901 - Unspecified asthma with (acute) exacerbation (3) Diastolic dysfunction without heart failure Code(s): I51.89 - OTHER ILL-DEFINED HEART DISEASES (4) Hyperlipidemia Code(s): E78.5 - HYPERLIPIDEMIA, UNSPECIFIED Qualifiers: Hyperlipidemia type: pure hypercholesterolemia Qualified Code(s): E78.00 - Pure hypercholesterolemia, unspecified; E78.0 - Pure hypercholesterolemia (5) S/P AVR (aortic valve replacement) Code(s): Z95.2 - PRESENCE OF PROSTHETIC HEART VALVE Assessment/Plan 09/14/2019 Echo: Normal biventricular size and fxn, mild cLVH, mild AR, TR, b ioAVR 1. Acute hypoxic respiratory failure related to acute on chronic exacerbation of reactive airway disease/bronchial asthma 2. Coronary artery disease post PCI angina pectoris, clinically stable 3. Diastolic left ventricular dysfunction with chronic class I [place] [employer] classification left ventricular failure, clinically compensated/euvolemic- BNP elevation is probably chronic 4. Post AVR/bioprosthesis 5. HTN heart disease 6. DM 7. Hypercholesterolemia 8. Chronic kidney disease 9. Anemia PLAN: 1. Bronchodilators, empiric abx course, oral steroid taper with GI protection, Lovenox at DVT prophylaxis dose as d-dimer low, O2 to maintain saO2, empiric abx course 2. Continue Norvasc 10 qd, Lipitor 40 qd 3. Continue Cozaar 100 qd, Toprol XL 50 qd 4. Continue Aldactone 25 qd and Lasix 40 qd with monitor diuretic response, renal fxn and electrolytes 5. Continue ASA 81 qd with close monitoring of Hgb level 6. Advised antibiotic endocarditis prophylaxis as per AHA guidelines 7. Advised follow-up in our office post D/C [phone]
--- NOTE | 2020-05-04 15:19 | PN ---
Teaching Attending Note Name of Resident: Tommy Cruz ATTENDING PHYSICIAN STATEMENT I saw and evaluated the patient. I reviewed the resident's note and discussed the case with the resident. I agree with the resident's findings and plan as documented. SUBJECTIVE: Seen and examined at bedside. Patient reports feeling better today. Speaking in full sentences on room air. Ambulated with physical therapy without desaturating. Patient is medically cleared for discharge. Will be sent home on a steroid and insulin taper and can follow-up with her PCP OBJECTIVE: Last Vital Signs Temp Pulse Resp BP Pulse Ox 98.4 F 77 18 140/62 95 05/04/20 14:05 05/04/20 14:05 05/04/20 14:05 05/04/20 14:05/04/20 09:57 PE: Per resident note Labs/Imaging: reviewed ASSESSMENT AND PLAN: 80 year old female with history of Dementia, Chronic Diastolic CHF (EF 55%), Asthma, CAD s/p LAD Stent/s/p CABG, s/p Bioprosthetic AV, HTN. HLD, DM 2, presented with increasing SOB/cough with associated chest tightness. Patient was treated for an acute asthma exacerbation with IV steroids which were transitioned to prednisone and bronchodilators with improvement in her symptoms. Patient found to have uncontrolled diabetes which was further exacerbated by steroids. She will be sent home on a one-week prednisone taper and a corresponding insulin taper. Will be sent home with VNS. Patient also found to have iron deficiency anemia and should follow-up for outpatient GI work-up
--- NOTE | 2020-05-04 20:17 | DS ---
Physical Exam: SUBJECTIVE: Patient seen and examined at her chair side. Patient does not endorse any acute overnight events. The patient is comfortable and at her baseline. Patient explains she is ready to go home. OBJECTIVE: Vital Signs Period Temp Pulse Resp BP Sys/[place]illa Pulse Ox Last 24 Hr 98 F-98.7 F 74-102 18-20 127-153/44-64 92-95 PHYSICAL EXAM GENERAL: The patient is awake, alert, and fully oriented, in no acute distress. LUNGS: Low inspiratory effort, crackles resolved HEART: Regular rate and rhythm, S1, S2 without murmur, rub or gallop. ABDOMEN: Soft, nontender, nondistended, normoactive bowel sounds, no guarding, no rebound, no hepatosplenomegaly, no masses. EXTREMITIES: 2+ pulses, warm, well-perfused, no edema. LABS Laboratory Results - last 24 hr 05/03/20 05/04/20 05/04/20 21:43 05:58 05:58 WBC 9.7 RBC 5.05 Hgb 10.8 Hct 33.7 MCV 66.7 L MCH 21.3 L MCHC 32.0 RDW 18.2 H Plt Count 268 MPV 8.6 Sodium 142 Potassium 3.6 Chloride 105 Carbon Dioxide 28 Anion Gap 9 BUN 31.1 H Creatinine 1.1 Est GFR (CKD-EPI)AfAm 54.15 Est GFR (CKD-EPI)NonAf 46.72 POC Glucometer 445 Random Glucose 180 H Calcium 8.0 L Phosphorus 3.8 Magnesium 2.7 H 05/04/20 05/04/20 05/04/20 06:14 11:04 17:22 WBC RBC Hgb Hct MCV MCH MCHC RDW Plt Count MPV Sodium Potassium Chloride Carbon Dioxide Anion Gap BUN Creatinine Est GFR (CKD-EPI)AfAm Est GFR (CKD-EPI)NonAf POC Glucometer 184 366 375 Random Glucose Calcium Phosphorus Magnesium HOSPITAL COURSE: Date of Admission:04/30/20 Ms. Herrera is an 80F w a h/o diastolic CHF HFpEF of 55-60% (09/14/2019), asthma exacerbation, CAD s/p stent placement of the Left anterior decending artery, s/p bioprosthetic aortic valve replacement, s/p CABG, HTN, HLD, DM type II. She was admitted to telemetry for Acute hypoxic respiratory failure related to acute on chronic exacerbation of reactive airway disease/bronchial asthma. The patient was managed by Dr. Ma and was continued on her home Bronchodilator and Nebs and started on Azithromycin. The patient was placed on oral prednisone for supplemental therapy. The patient was monitored for O2 and remained in the 90's. 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 Prior to discharge the patient was started on IV prednisone and discharged on a taper steroid regimen. The patient was seen by respiratory therapy for qualifications of home o2 for which she did not need. She was also evaluated by PT and was capable of walking without desatting. Date of Discharge: 05/04/20 Minutes to complete discharge: 35 Discharge Summary Problems reviewed: Yes Reason For Visit: EXACERBATION OF ASTHMA Current Active Problems Diabetes (Chronic) HTN (hypertension) (Chronic) Hypertensive cardiomegaly without heart failure (Chronic) Condition: Stable - Instructions Diet, Activity, Other Instructions: YOUR VISIT: You were evaluated in the hospital for episodes of coughing and shortness of breath. During your hospital course we evaluated you with lab work, blood work, an X-Ray of your chest, and an echocardiogram of your heart. You had chest pain with the persistent coughing and we monitored your heart and oxygen levels to ensure round the clock optimal care. During your visit we treated you with antibiotics, fluids, and steroids. While we were treating you for your asthma you were also evaluated by respiratory therapy. They determined you are capable of activities of daily living without supplemental oxygen. You were evaluated by physical therapy and they determined you are capable of being discharged. You also were given steroids and will have to continue to take 7 days after being discharged. You were also found to have an increased blood sugar level and your insulin medications were changed. You will have visiting nursing services to aid you in your home care. You are being sent home on with a prednisone taper to help your breathing. While you are on prednisone you will need to take more insulin to control your blood sugar. Please follow the following instructions exactly. MEDICATIONS: - START taking: - PREDNISONE (7 PILLS) 35mg for one day ON SATURDAY (STARTING 05/05/2020) - PREDNISONE (6 PILLS) 30mg for one day ON SATURDAY (05/06/2020) - PREDNISONE (5 PILLS) 25mg for one day ON SATURDAY (05/07/2020) - PREDNISONE (4 PILLS) 20mg for one day ON SATURDAY (05/08/2020) - PREDNISONE (3 PILLS) 15mg for one day ON SATURDAY (05/09/2020) - PREDNISONE (2 PILLS) 10mg for one day ON SATURDAY (05/10/2020) - PREDNISONE (1 PILL) 5mg for one day ON SATURDAY (05/11/2020) - CONTINUE to take your 34 units of home lantis AND START TAKING: - INSULIN NOVOLOG 12 units after meals ON SATURDAY (STARTING 05/05/2020) - INSULIN NOVOLOG 10 units after meals ON SATURDAY (05/06/2020) - INSULIN NOVOLOG 8 units after meals ON SATURDAY (05/07/2020) - INSULIN NOVOLOG 4 units after meals ON SATURDAY (ENDING 05/08/2020) - Continue to take NOVOLOG 2 units after meals after finishing the schedule listed above Please follow-up with the Physicians below: - Primary Care Physician: please see within 1-2weeks to discuss your recent hospitalization, blood glucose monitoring, and insulin regimen. Discuss your getting repeat labwork(eg BMP) to check your electrolytes - [employer] (LUNG DOCTOR) Dr. LANDEN MA: to discuss your hospital visit and your asthma medications Please seek immediate medical evaluation at your doctor's office or the Emergency Room if you experience: - Increased coughing - Increased shortness of breath - Increased sputum - fever, chills - nausea, vomiting - localized abdominal pain - painful urination - trouble breathing Referrals: Landen Ma MD [Staff Physician] - Ayan Kessler MD [Primary Care Provider] - 2 Weeks Kenn Zuñiga MD [Staff Physician] - Disposition: VNS/HOME HEALTH CARE - Home Medications Comprehensive Discharge Medication List: Ambulatory Orders Atorvastatin Ca [Lipitor] 40 mg DAILY 09/15/19 Albuterol 0.083% Nebulizer Isabelle [Ventolin 0.083% Nebulizer Soln -] 1 amp NEB RQID #25 amp 09/16/19 Budesonide/Formeterol Fumarate [SYMBICORT 160/4.5mcg -] 2 inh PO BID 02/12/20 Amlodipine Besylate [Norvasc -] 10 mg PO DAILY #30 tablet 02/18/20 Donepezil HCl [Aricept -] 10 mg PO DAILY 02/18/20 Empagliflozin [Jardiance] 10 mg PO DAILY 02/18/20 Furosemide [Lasix -] 40 mg PO DAILY 02/18/20 Losartan Potassium 100 mg PO DAILY 02/18/20 Metoprolol Succinate [Toprol Xl] 50 mg PO DAILY 02/18/20 Mirtazapine 15 mg PO DAILY 02/18/20 Spironolactone [Aldactone] 25 mg PO DAILY #30 tablet 02/18/20 Insulin Glargine,Hum.rec.anlog [Lantus] 34 unit SQ BID@0700,2200 04/30/20 Insulin Aspart [Novolog] 100 unit SQ AC #2 cartridge 05/04/20 Prednisone 5 mg PO DAILY #28 tablet 05/04/20 This patient is new to me today: No Emergency Visit: Yes ED Registration Date: 04/30/20 Care time: The patient presented to the Emergency Department on the above date and was hospitalized for further evaluation of their emergent condition. Critical Care patient: No - Discharge Referral Referred to [facility] No ATTENDING PHYSICIAN STATEMENT I saw and evaluated the patient. I reviewed the resident's note and discussed the case with the resident. I agree with the resident's findings and plan as documented. SUBJECTIVE: OBJECTIVE: ASSESSMENT AND PLAN:
[2020-05-04] MEDS ORDERED: INSULIN (NOVOLOG) ASPART 100 UNITS/ML 10ML VIAL ONE (21:43)
[2020-05-04] MEDS: MIRTAZAPINE 15 MG TABLET (FP) PO SCH (21:48)
[2020-05-05] MEDS: INSULIN SLIDING SCALE (NOVOLOG) 1 VIAL SQ SCH ×2 (07:02→11:52)
[2020-05-05] MEDS: INSULIN (LEVEMIR) 100 UNITS/ML UNITS SQ SCH (07:02)
[2020-05-05] MEDS: INSULIN (NOVOLOG) ASPART 100 UNITS/ML 10ML VIAL SQ SCH ×2 (07:05→11:52)
[2020-05-05] MEDS ORDERED: ALBUTEROL SO4 2.5/IPRATROPIUM 0.5 INH SOL 3 ML VIAL.NEB. NEB ONE (08:41)
[2020-05-05] MEDS: ALBUTEROL SO4 2.5/IPRATROPIUM 0.5 INH SOL 3 ML VIAL.NEB. NEB SCH (08:53)
[2020-05-05] MEDS: SPIRONOLACTONE 25 MG TABLET PO SCH (09:14)
[2020-05-05] MEDS: FUROSEMIDE 40 MG TABLET (FP) PO SCH (09:14)
[2020-05-05] MEDS: predniSONE 20 MG TABLET (UD) PO SCH (09:14)
[2020-05-05] MEDS: FERROUS SO4 325 MG TABLET (FP) PO SCH (09:14)
[2020-05-05] MEDS: amLODIPine BESYLATE 10 MG TABLET (FP) PO SCH (09:14)
[2020-05-05] MEDS: ENOXAPARIN NA (PORCINE) 40 MG/0.4 ML DISP.SYRIN SQ SCH (09:14)
[2020-05-05] MEDS: ATORVASTATIN CA 40 MG TABLET (FP) PO SCH (09:14)
[2020-05-05] MEDS: LOSARTAN POTASSIUM 50 MG TABLET (FP) PO SCH (09:14)
[2020-05-05] MEDS: PANTOPRAZOLE 40 MG TABLET PO SCH (09:14)
[2020-05-05] MEDS: DONEPEZIL HCL 10 MG TABLET (FP) PO SCH (09:14)
[2020-05-05] MEDS: BUDESONIDE/FORMETEROL FUMARATE 160/4.5 mcg INHALER IH SCH (09:15)
--- NOTE | 2020-05-05 09:19 | PN ---
Progress Note, Physician History of Present Illness: Ms. Herrera is an 80F w a h/o diastolic CHF HFpEF of 55-60% (09/14/2019), asthma exacerbation, CAD s/p stent placement of the Left anterior decending artery, s/p bioprosthetic aortic valve replacement, s/p CABG, HTN, HLD, DM type II admitted with worsening SOB, productive cough and wheezes since resolved to baseline. Last office visit 03/15/2020. - Current Medication List Current Medications: Active Medications Albuterol Sulfate (Ventolin 0.083% Nebulizer Soln -) 1 amp NEB Q8H PRN PRN Reason: SHORT OF BREATH/WHEEZING Last Admin: 05/05/20 00:10 Dose: 1 amp Documented by: Albuterol/Ipratropium (Duoneb -) 1 amp NEB RTID [facility] Last Admin: 05/05/20 08:53 Dose: 1 amp Documented by: Amlodipine Besylate (Norvasc -) 10 mg PO DAILY [facility] Last Admin: 05/05/20 09:14 Dose: 10 mg Documented by: Atorvastatin Calcium (Lipitor -) 40 mg PO DAILY [facility] Last Admin: 05/05/20 09:14 Dose: 40 mg Documented by: Budesonide/Formoterol Fumarate (Symbicort 160/4.5mcg -) 2 puff IH BID [facility] Last Admin: 05/05/20 09:15 Dose: 2 puff Documented by: Donepezil HCl (Aricept -) 10 mg PO DAILY [facility] Last Admin: 05/05/20 09:14 Dose: 10 mg Documented by: Enoxaparin Sodium (Lovenox -) 40 mg SQ DAILY [facility] Last Admin: 05/05/20 09:14 Dose: 40 mg Documented by: Ferrous Sulfate (Feosol -) 325 mg PO BID [facility] Last Admin: 05/05/20 09:14 Dose: 325 mg Documented by: Furosemide (Lasix -) 40 mg PO DAILY [facility] Last Admin: 05/05/20 09:14 Dose: 40 mg Documented by: Azithromycin 250 mg/ Dextrose 250 mls @ 250 mls/hr IVPB DAILY [facility] Last Admin: 05/04/20 09:27 Dose: 250 mls/hr Documented by: Insulin Aspart (Novolog Vial) 12 units SQ TIDAC [facility]; Protocol Last Admin: 05/05/20 07:05 Dose: Not Given Documented by: Insulin Aspart (Novolog Vial Sliding Scale -) 1 vial SQ [facility]; Protocol Last Admin: 05/05/20 07:02 Dose: 2 units Documented by: Insulin Detemir (Levemir Vial) 30 units SQ BID@0700,2200 [facility] Last Admin: 05/05/20 07:02 Dose: 30 unit Documented by: Losartan Potassium (Cozaar -) 100 mg PO DAILY [facility] Last Admin: 05/05/20 09:14 Dose: 100 mg Documented by: Metoprolol Succinate (Toprol Xl -) 50 mg PO DAILY [facility] Last Admin: 05/05/20 09:14 Dose: 50 mg Documented by: Mirtazapine (Remeron -) 15 mg PO HS [facility] Last Admin: 05/04/20 21:48 Dose: 15 mg Documented by: Pantoprazole Sodium (Protonix -) 40 mg PO DAILY [facility] Last Admin: 05/05/20 09:14 Dose: 40 mg Documented by: Prednisone (Deltasone -) 40 mg PO DAILY [facility] Last Admin: 05/05/20 09:14 Dose: 40 mg Documented by: Spironolactone (Aldactone -) 25 mg PO DAILY [facility] Last Admin: 05/05/20 09:14 Dose: 25 mg Documented by: - Objective Vital Signs: Vital Signs Temperature 98 F 05/05/20 06:00 Pulse Rate 81 05/05/20 06:00 Respiratory Rate 18 05/05/20 06:00 Blood Pressure 151/74 05/05/20 06:00 O2 Sat by Pulse Oximetry (%) 96 05/05/20 08:13 Constitutional: Yes: No Distress, Calm Neck: Yes: Supple Cardiovascular: Yes: Regular Rate and Rhythm Respiratory: Yes: Regular, CTA Bilaterally Gastrointestinal: Yes: Normal Bowel Sounds, Soft Edema: No Labs: CBC, BMP 05/04/20 05:58 05/04/20 05:58 Problem List - Problems (1) Hypertensive cardiomegaly without heart failure Code(s): I11.9 - HYPERTENSIVE HEART DISEASE WITHOUT HEART FAILURE (2) Asthma exacerbation Code(s): J45.901 - UNSPECIFIED ASTHMA WITH (ACUTE) EXACERBATION Qualifiers: Asthma severity: unspecified severity Asthma persistence: unspecified Qualified Code(s): J45.901 - Unspecified asthma with (acute) exacerbation (3) Diastolic dysfunction without heart failure Code(s): I51.89 - OTHER ILL-DEFINED HEART DISEASES (4) Hyperlipidemia Code(s): E78.5 - HYPERLIPIDEMIA, UNSPECIFIED Qualifiers: Hyperlipidemia type: pure hypercholesterolemia Qualified Code(s): E78.00 - Pure hypercholesterolemia, unspecified; E78.0 - Pure hypercholesterolemia (5) S/P AVR (aortic valve replacement) Code(s): Z95.2 - PRESENCE OF PROSTHETIC HEART VALVE Assessment/Plan 09/14/2019 Echo: Normal biventricular size and fxn, mild cLVH, mild AR, TR, bioAVR 1. Acute hypoxic respiratory failure related to acute on chronic exacerbation of reactive airway disease/bronchial asthma 2. Coronary artery disease post PCI angina pectoris, clinically stable 3. Diastolic left ventricular dysfunction with chronic class I [place] [employer] classification left ventricular failure, clinically co mpensated/euvolemic- BNP elevation is probably chronic 4. Post AVR/bioprosthesis 5. HTN heart disease 6. DM 7. Hypercholesterolemia 8. Chronic kidney disease 9. Anemia PLAN: 1. Bronchodilators, empiric abx course, oral steroid taper with GI protection, Lovenox at DVT prophylaxis dose as d-dimer low, O2 to maintain saO2, empiric abx course 2. Continue Norvasc 10 qd, Lipitor 40 qd 3. Continue Cozaar 100 qd, Toprol XL 50 qd 4. Continue Aldactone 25 qd and Lasix 40 qd with monitor diuretic response, renal fxn and electrolytes 5. Continue ASA 81 qd with close monitoring of Hgb level 6. Advised antibiotic endocarditis prophylaxis as per AHA guidelines 7. Advised follow-up in our office post D/C [phone]
[2020-05-05] MEDS: AZITHROMYCIN IVPB 250 MG in DEXTROSE 5%-WATER - 250 ML IVPB SCH (10:01)
--- NOTE | 2020-05-05 10:09 | PN ---
Progress Note, Physician History of Present Illness: PULMONARY ALERT,OOB-CHAIR,DYSPNEA IMPROVING - Current Medication List Current Medications: Active Medications Albuterol Sulfate (Ventolin 0.083% Nebulizer Soln -) 1 amp NEB Q8H PRN PRN Reason: SHORT OF BREATH/WHEEZING Last Admin: 05/05/20 00:10 Dose: 1 amp Documented by: Albuterol/Ipratropium (Duoneb -) 1 amp NEB RTID [facility] Last Admin: 05/05/20 08:53 Dose: 1 amp Documented by: Amlodipine Besylate (Norvasc -) 10 mg PO DAILY [facility] Last Admin: 05/05/20 09:14 Dose: 10 mg Documented by: Atorvastatin Calcium (Lipitor -) 40 mg PO DAILY [facility] Last Admin: 05/05/20 09:14 Dose: 40 mg Documented by: Budesonide/Formoterol Fumarate (Symbicort 160/4.5mcg -) 2 puff IH BID [facility] Last Admin: 05/05/20 09:15 Dose: 2 puff Documented by: Donepezil HCl (Aricept -) 10 mg PO DAILY [facility] Last Admin: 05/05/20 09:14 Dose: 10 mg Documented by: Enoxaparin Sodium (Lovenox -) 40 mg SQ DAILY [facility] Last Admin: 05/05/20 09:14 Dose: 40 mg Documented by: Ferrous Sulfate (Feosol -) 325 mg PO BID [facility] Last Admin: 05/05/20 09:14 Dose: 325 mg Documented by: Furosemide (Lasix -) 40 mg PO DAILY [facility] Last Admin: 05/05/20 09:14 Dose: 40 mg Documented by: Azithromycin 250 mg/ Dextrose 250 mls @ 250 mls/hr IVPB DAILY [facility] Last Admin: 05/05/20 10:01 Dose: Not Given Documented by: Insulin Aspart (Novolog Vial) 12 units SQ TIDAC [facility]; Protocol Last Admin: 05/05/20 07:05 Dose: Not Given Documented by: Insulin Aspart (Novolog Vial Sliding Scale -) 1 vial SQ ACHS [facility]; Protocol Last Admin: 05/05/20 07:02 Dose: 2 units Documented by: Insulin Detemir (Levemir Vial) 30 units SQ BID@0700,2200 [facility] Last Admin: 05/05/20 07:02 Dose: 30 unit Documented by: Losartan Potassium (Cozaar -) 100 mg PO DAILY [facility] Last Admin: 05/05/20 09:14 Dose: 100 mg Documented by: Metoprolol Succinate (Toprol Xl -) 50 mg PO DAILY [facility] Last Admin: 05/05/20 09:14 Dose: 50 mg Documented by: Mirtazapine (Remeron -) 15 mg PO HS [facility] Last Admin: 05/04/20 21:48 Dose: 15 mg Documented by: Pantoprazole Sodium (Protonix -) 40 mg PO DAILY [facility] Last Admin: 05/05/20 09:14 Dose: 40 mg Documented by: Prednisone (Deltasone -) 40 mg PO DAILY [facility] Last Admin: 05/05/20 09:14 Dose: 40 mg Documented by: Spironolactone (Aldactone -) 25 mg PO DAILY [facility] Last Admin: 05/05/20 09:14 Dose: 25 mg Documented by: - Objective Vital Signs: Vital Signs Temperature 98 F 05/05/20 06:00 Pulse Rate 81 05/05/20 06:00 Respiratory Rate 18 05/05/20 06:00 Blood Pressure 151/74 05/05/20 06:00 O2 Sat by Pulse Oximetry (%) 96 05/05/20 08:13 Constitutional: Yes: Well Nourished, Calm Eyes: Yes: WNL HENT: Yes: WNL Neck: Yes: WNL Cardiovascular: Yes: Regular Rate and Rhythm, S1, S2 Respiratory: Yes: Diminished Gastrointestinal: Yes: Normal Bowel Sounds, Soft Extremities: Yes: WNL Edema: No Labs: CBC, BMP Problem List - Problems (1) Asthma exacerbation Code(s): J45.901 - UNSPECIFIED ASTHMA WITH (ACUTE) EXACERBATION Qualifiers: Asthma severity: unspecified severity Asthma persistence: unspecified Qualified Code(s): J45.901 - Unspecified asthma with (acute) exacerbation (2) HTN (hypertension) Code(s): I10 - ESSENTIAL (PRIMARY) HYPERTENSION Qualifiers: Hypertension type: unspecified Qualified Code(s): I10 - Essential (primary) hypertension (3) Acute respiratory distress Code(s): R06.03 - ACUTE RESPIRATORY DISTRESS (4) Hyperlipidemia Code(s): E78.5 - HYPERLIPIDEMIA, UNSPECIFIED Qualifiers: Hyperlipidemia type: pure hypercholesterolemia Qualified Code(s): E78.00 - Pure hypercholesterolemia, unspecified; E78.0 - Pure hypercholesterolemia (5) S/P AVR (aortic valve replacement) Code(s): Z95.2 - PRESENCE OF PROSTHETIC HEART VALVE Assessment/Plan Assessment/Plan Acute Asthma Exacerbation improving CAD s/p CABG LV Diastolic Dysfunction h/o bio AVR HTN DM Hyperlipidemia - Prednisone - inhaled bronchodilators - O2 to keep Spo2 >90% - antibiotics - DVT prophylaxis DR MA
[2020-05-05 10:33] VITALS: BP 141/91; PULSE 84; TEMP 97.8
== END 2020-05-05 12:01 | disposition home health service (06) | DRG 189 ==
LOC: SUPCPDRO 14:43 → JER 14:43 → JERBED 18:54 → OBSVTOIN 20:29 → J4W 23:32
PROVIDERS: ADMIT Internal Medicine; ATTEND Internal Medicine
DX: J96.01 Acute respiratory failure with hypoxia (principal); J45.901 Unspecified asthma with (acute) exacerbation; I13.0 Hypertensive heart and chronic kidney disease with heart failure and stage 1 through stage 4 chronic kidney disease, or unspecified chronic kidney disease; I50.32 Chronic diastolic (congestive) heart failure; N18.9 Chronic kidney disease, unspecified; I51.7 Cardiomegaly; E11.65 Type 2 diabetes mellitus with hyperglycemia; E66.01 Morbid (severe) obesity due to excess calories; Z68.35 Body mass index [BMI] 35.0-35.9, adult; I25.119 Atherosclerotic heart disease of native coronary artery with unspecified angina pectoris; E78.5 Hyperlipidemia, unspecified; F03.90 Unspecified dementia, unspecified severity, without behavioral disturbance, psychotic disturbance, mood disturbance, and anxiety; D50.9 Iron deficiency anemia, unspecified; E78.00 Pure hypercholesterolemia, unspecified; Z95.1 Presence of aortocoronary bypass graft; Z95.2 Presence of prosthetic heart valve; Z95.5 Presence of coronary angioplasty implant and graft; R07.9 Chest pain, unspecified
CPT/HCPCS: 36415; 71045-TC-FY; 71046-TC-FY; 80048; 80053; 80061; 81003; 82550; 82728; 82962; 83036; 83540; 83550; 83721; 83735; 83880; 84100; 84439; 84443; 84484; 85025; 85027; 86922; 93005; 93010; 93306-TC; 94640; 94761; 97116-GP; 97161-GP; 99285-25; G0378; U0003

== ENCOUNTER 2020-09-07 15:17 | Inpatient (IN) | payer OTHER ==
[2020-09-07] MEDS ORDERED: ACETAMINOPHEN 1000 MG/100 ML BAG IVPB ONE (17:06)
[2020-09-07 17:18] LABS: HEMATOCRIT 37.4 % (32.4-45.2); MCH 21.3 pg (25.7-33.7); MCHC 32.1 g/dl (32.0-36.0); MEAN CELL VOLUME 66.5 fl (80-96); MEAN PLT VOLUME 9.2 fl (7.5-11.1); PLATELET COUNT 227 K/MM3 (134-434); RBC 5.63 M/mm3 (3.60-5.2); RDW 15.9 % (11.6-15.6); WHITE BLOOD COUNT 8.5 K/mm3 (4.0-10.0)
[2020-09-07] MEDS ORDERED: ACETAMINOPHEN INJECTION 100 ML IVPB ONE (17:23)
[2020-09-07 17:25] LABS: INR 0.9 (0.83-1.09); PROTHROMBIN TIME (PATIENT) 11.1 SEC (9.7-13.0)
[2020-09-07 17:53] LABS: CHLORIDE 96 mmol/L (98-107); SODIUM 130 mmol/L (136-145)
[2020-09-07 17:56] LABS: ALBUMIN 3.5 g/dl (3.4-5.0); ANION GAP 11 MMOL/L (8-16); BLOOD UREA NITROGEN 38.1 mg/dL (7-18); CALCIUM 8.9 mg/dL (8.5-10.1); CO2 24 mmol/L (21-32); LIPASE 216 U/L (73-393)
[2020-09-07 17:57] LABS: GLUCOSE,RANDOM 378 mg/dL (74-106)
[2020-09-07 17:59] LABS: CREATININE 1.9 mg/dL (0.55-1.3); PHOSPHOROUS 5.1 mg/dL (2.5-4.9); SGOT/AST 15 U/L (15-37); SGPT/ALT 21 U/L (13-61)
[2020-09-07 18:00] LABS: BILIRUBIN,TOTAL 0.3 mg/dL (0.2-1); TOT PROT 6.7 g/dl (6.4-8.2)
[2020-09-07 18:02] LABS: ALK PHOS 121 U/L (45-117); N-TERMINAL BNP 771.4 pg/ml (5-450)
[2020-09-07 18:14] LABS: MAGNESIUM 2.8 mg/dL (1.8-2.4)
[2020-09-07] MEDS ORDERED: INSULIN REGULAR HUMAN 100 UNITS/ML *VIAL IVPUSH ONE ×2 (18:32→18:34)
[2020-09-07] MEDS ORDERED: SODIUM CHLORIDE 500 ML IV STA (18:32)
[2020-09-07] MEDS ORDERED: amLODIPine BESYLATE 5 MG TABLET (FP) PO ONE (20:07)
[2020-09-07] MEDS ORDERED: FUROSEMIDE 40 MG/4 ML INJECTABLE VIAL IVPUSH ONE (21:49)
[2020-09-07] MEDS: INSULIN SLIDING SCALE (NOVOLOG) 1 VIAL SQ SCH (23:54)
[2020-09-08] MEDS: ACETAMINOPHEN 325 MG TABLET (FP) PO PRN ×3 (01:11→23:24)
[2020-09-08 02:37] LABS: PH,URINE 6.5 (5.0-8.0); URINE APPEARANCE CLEAR; URINE BILIRUBIN NEGATIVE (NEGATIVE); URINE COLOR YELLOW; URINE GLUCOSE (UA) 1+ (NEGATIVE); URINE KETONE NEGATIVE (NEGATIVE); URINE LEUK ESTERASE NEGATIVE (NEGATIVE); URINE NITRITE NEGATIVE (NEGATIVE); URINE PROTEIN NEGATIVE (NEGATIVE); URINE UROBILINOGEN 0.2 mg/dL (0.2-1.0)
[2020-09-08] MEDS: HEPARIN NA (PORCINE) 5,000 UNITS/ML 1ML VIAL SQ SCH ×3 (06:38→23:18)
[2020-09-08] MEDS: INSULIN SLIDING SCALE (NOVOLOG) 1 VIAL SQ SCH ×4 (06:38→22:00)
[2020-09-08 08:06] LABS: HEMATOCRIT 36.1 % (32.4-45.2); HEMOGLOBIN 11.6 GM/dL (10.7-15.3); MCH 21.3 pg (25.7-33.7); MCHC 32.3 g/dl (32.0-36.0); MEAN CELL VOLUME 66.1 fl (80-96); MEAN PLT VOLUME 8.9 fl (7.5-11.1); PLATELET COUNT 251 K/MM3 (134-434); RBC 5.46 M/mm3 (3.60-5.2); RDW 16.3 % (11.6-15.6); WHITE BLOOD COUNT 8.6 K/mm3 (4.0-10.0)
[2020-09-08 08:41] LABS: HDL CHOLESTEROL 51 mg/dL (40-60)
[2020-09-08 08:44] LABS: ALBUMIN 3.5 g/dl (3.4-5.0); BLOOD UREA NITROGEN 41.9 mg/dL (7-18); CALCIUM 9.2 mg/dL (8.5-10.1); CHOLESTEROL 191 mg/dL (50-200)
[2020-09-08 08:46] LABS: CREATININE 1.9 mg/dL (0.55-1.3); LDL CHOLESTEROL (ONLY SJRH) 119 mg/dL (5-100); TRIGLYCERIDES 215 mg/dL (0-150)
[2020-09-08 08:47] LABS: PHOSPHOROUS 6.6 mg/dL (2.5-4.9)
[2020-09-08 08:49] LABS: BILIRUBIN,TOTAL 0.4 mg/dL (0.2-1); TOT PROT 6.6 g/dl (6.4-8.2)
[2020-09-08] MEDS ORDERED: FUROSEMIDE 40 MG/4 ML INJECTABLE VIAL IVPUSH SCH (10:00)
[2020-09-08] MEDS: DOCUSATE SODIUM 100 MG CAPSULE (FP) PO SCH ×2 (12:09→23:19)
[2020-09-08] MEDS: POLYETHYLENE GLYCOL 3350 119 GM BTL PO SCH (12:09)
[2020-09-08] MEDS ORDERED: DEXTROSE 5%-WATER 100 ML IVPB ONE (13:54)
[2020-09-08] MEDS: CEFTRIAXONE 2 GM in DEXTROSE 5%-WATER 100 ML IVPB SCH (14:05)
[2020-09-08] MEDS ORDERED: SODIUM ZIRCONIUM CYCLOSILICATE (LOKELMA) 5 GM PACKET PO ONE (17:38)
[2020-09-08] MEDS ORDERED: SODIUM CHLORIDE 0.45% 1,000 ML IV SCH (17:45)
[2020-09-08] MEDS: MIRTAZAPINE 15 MG TABLET (FP) PO SCH (23:19)
[2020-09-08] MEDS: ATORVASTATIN CA 40 MG TABLET (FP) PO SCH (23:19)
[2020-09-08] MEDS: SENNOSIDES 8.6MG TABLET (FP) PO SCH (23:19)
[2020-09-08] MEDS: BUDESONIDE/FORMETEROL FUMARATE 160/4.5 mcg INHALER IH SCH (23:20)
[2020-09-08] MEDS: DONEPEZIL HCL 10 MG TABLET (FP) PO SCH (23:26)
[2020-09-09] MEDS: HEPARIN NA (PORCINE) 5,000 UNITS/ML 1ML VIAL SQ SCH ×3 (06:52→22:44)
[2020-09-09] MEDS: INSULIN SLIDING SCALE (NOVOLOG) 1 VIAL SQ SCH ×4 (07:13→23:02)
[2020-09-09 08:09] LABS: BASO % 0.3 % (0-2.0); EOS % 3.3 % (0-4.5); LYMPH % 24.9 % (8-40); MCH 20.8 pg (25.7-33.7); MCHC 31.5 g/dl (32.0-36.0); MEAN CELL VOLUME 66.2 fl (80-96); MEAN PLT VOLUME 9.1 fl (7.5-11.1); MONO % 6.3 % (3.8-10.2); NEUT % 65.2 % (42.8-82.8); PLATELET COUNT 217 K/MM3 (134-434); RBC 5.29 M/mm3 (3.60-5.2); WHITE BLOOD COUNT 7.9 K/mm3 (4.0-10.0)
[2020-09-09 08:27] LABS: CALCIUM 8.5 mg/dL (8.5-10.1)
[2020-09-09 08:28] LABS: ALBUMIN 3.4 g/dl (3.4-5.0); BLOOD UREA NITROGEN 54.8 mg/dL (7-18); MAGNESIUM 2.5 mg/dL (1.8-2.4)
[2020-09-09 08:31] LABS: CREATININE 2.1 mg/dL (0.55-1.3); PHOSPHOROUS 5.7 mg/dL (2.5-4.9)
[2020-09-09 08:32] LABS: BILIRUBIN,TOTAL 0.4 mg/dL (0.2-1); TOT PROT 6.2 g/dl (6.4-8.2)
[2020-09-09] MEDS ORDERED: DEXTROSE 5%-WATER 100 ML IVPB ONE (09:53)
[2020-09-09] MEDS: ACETAMINOPHEN 325 MG TABLET (FP) PO PRN (09:56)
[2020-09-09] MEDS: DOCUSATE SODIUM 100 MG CAPSULE (FP) PO SCH ×2 (09:57→22:45)
[2020-09-09] MEDS: amLODIPine BESYLATE 10 MG TABLET (FP) PO SCH (09:58)
[2020-09-09] MEDS: LOSARTAN POTASSIUM 50 MG TABLET PO SCH (09:58)
[2020-09-09] MEDS ORDERED: SPIRONOLACTONE 25 MG TABLET PO SCH (10:00)
[2020-09-09] MEDS ORDERED: LOSARTAN POTASSIUM 50 MG TABLET PO SCH (10:00)
[2020-09-09] MEDS ORDERED: FUROSEMIDE 40 MG TABLET (FP) PO SCH (10:00)
[2020-09-09] MEDS: POLYETHYLENE GLYCOL 3350 119 GM BTL PO SCH (10:01)
[2020-09-09] MEDS: BUDESONIDE/FORMETEROL FUMARATE 160/4.5 mcg INHALER IH SCH (11:07)
[2020-09-09] MEDS: CEFTRIAXONE 2 GM in DEXTROSE 5%-WATER 100 ML IVPB SCH (11:07)
[2020-09-09 11:25] LABS: ANISOCYTOSIS 0; MACROCYTOSIS 0; OVALOCYTE 1+; PLATELET ESTIMATE NORMAL
[2020-09-09 16:33] LABS: EPI CELLS 20 /uL (0-25.1); HYALINE CASTS 0 /uL (0-3.1); URINE APPEARANCE CLEAR; URINE BACTERIA 5 /uL (0-1359); URINE BILIRUBIN NEGATIVE (NEGATIVE); URINE COLOR YELLOW; URINE GLUCOSE (UA) 2+ (NEGATIVE); URINE KETONE NEGATIVE (NEGATIVE); URINE LEUK ESTERASE TRACE (NEGATIVE); URINE NITRITE NEGATIVE (NEGATIVE); URINE PROTEIN NEGATIVE (NEGATIVE); URINE RBC 3 /uL (0-23.9); URINE UROBILINOGEN 0.2 mg/dL (0.2-1.0); URINE WBC 17 /uL (0-25.8)
[2020-09-09] MEDS: ATORVASTATIN CA 40 MG TABLET (FP) PO SCH (22:44)
[2020-09-09] MEDS: SENNOSIDES 8.6MG TABLET (FP) PO SCH (22:45)
[2020-09-09] MEDS: DONEPEZIL HCL 10 MG TABLET (FP) PO SCH (22:45)
[2020-09-09] MEDS: MIRTAZAPINE 15 MG TABLET (FP) PO SCH (22:45)
[2020-09-09] MEDS: INSULIN (LEVEMIR) 100 UNITS/ML UNITS SQ SCH (23:00)
[2020-09-09 23:48] VITALS: BMI 34.0
[2020-09-10] MEDS: BUDESONIDE/FORMETEROL FUMARATE 160/4.5 mcg INHALER IH SCH ×2 (06:51→10:00)
[2020-09-10] MEDS: HEPARIN NA (PORCINE) 5,000 UNITS/ML 1ML VIAL SQ SCH ×2 (06:52→14:10)
[2020-09-10] MEDS: INSULIN SLIDING SCALE (NOVOLOG) 1 VIAL SQ SCH ×2 (06:53→11:51)
[2020-09-10 07:45] LABS: HEMOGLOBIN 10.7 GM/dL (10.7-15.3); MCH 20.8 pg (25.7-33.7); MCHC 31.4 g/dl (32.0-36.0); MEAN CELL VOLUME 66.2 fl (80-96); PLATELET COUNT 204 K/MM3 (134-434); RBC 5.13 M/mm3 (3.60-5.2); RDW 16.3 % (11.6-15.6); WHITE BLOOD COUNT 7.3 K/mm3 (4.0-10.0)
[2020-09-10 07:52] LABS: CALCIUM 8.6 mg/dL (8.5-10.1)
[2020-09-10 07:53] LABS: BLOOD UREA NITROGEN 52.4 mg/dL (7-18); MAGNESIUM 2.9 mg/dL (1.8-2.4)
[2020-09-10 07:56] LABS: CREATININE 1.9 mg/dL (0.55-1.3); PHOSPHOROUS 4.5 mg/dL (2.5-4.9)
[2020-09-10] MEDS: DOCUSATE SODIUM 100 MG CAPSULE (FP) PO SCH (09:59)
[2020-09-10] MEDS: amLODIPine BESYLATE 10 MG TABLET (FP) PO SCH (09:59)
[2020-09-10] MEDS: LOSARTAN POTASSIUM 50 MG TABLET PO SCH (09:59)
[2020-09-10] MEDS: INSULIN (LEVEMIR) 100 UNITS/ML UNITS SQ SCH (09:59)
[2020-09-10] MEDS: POLYETHYLENE GLYCOL 3350 119 GM BTL PO SCH (10:00)
[2020-09-10] MEDS ORDERED: AMOX TR/POT CLAV 500MG/125MG TABLETS (FP) PO SCH (10:00)
[2020-09-10 11:20] VITALS: BP 124/54; PULSE 86; TEMP 98.1
[2020-09-10] MEDS: ACETAMINOPHEN 325 MG TABLET (FP) PO PRN (11:51)
== END 2020-09-10 16:00 | disposition home health service (06) | DRG 683 ==
LOC: JER 15:17 → JERBED 18:38 → J4W 23:42
PROVIDERS: ADMIT Internal Medicine; ATTEND Student in an Organized Health Care Education/Training Program
DX: N17.9 Acute kidney failure, unspecified (principal); E87.1 Hypo-osmolality and hyponatremia; I50.32 Chronic diastolic (congestive) heart failure; I13.0 Hypertensive heart and chronic kidney disease with heart failure and stage 1 through stage 4 chronic kidney disease, or unspecified chronic kidney disease; I25.10 Atherosclerotic heart disease of native coronary artery without angina pectoris; Z95.1 Presence of aortocoronary bypass graft; E78.5 Hyperlipidemia, unspecified; Z79.4 Long term (current) use of insulin; E87.5 Hyperkalemia; E83.41 Hypermagnesemia; E83.39 Other disorders of phosphorus metabolism; Z95.2 Presence of prosthetic heart valve; D64.9 Anemia, unspecified; K21.9 Gastro-esophageal reflux disease without esophagitis; I45.10 Unspecified right bundle-branch block; I44.0 Atrioventricular block, first degree; N18.9 Chronic kidney disease, unspecified; E11.22 Type 2 diabetes mellitus with diabetic chronic kidney disease; K57.90 Diverticulosis of intestine, part unspecified, without perforation or abscess without bleeding; E66.9 Obesity, unspecified; Z68.34 Body mass index [BMI] 34.0-34.9, adult; J44.9 Chronic obstructive pulmonary disease, unspecified; R07.89 Other chest pain; E11.65 Type 2 diabetes mellitus with hyperglycemia; K59.00 Constipation, unspecified
CPT/HCPCS: 36415; 71045-TC-FY; 74176-TC; 76775-TC; 76856-TC; 80048; 80053; 80061; 81003; 82550; 82565; 82962; 83036; 83605; 83690; 83721; 83735; 83880; 84100; 84300; 84443; 84484; 84540; 85025; 85027; 85610; 85730; 86850; 86900; 86901; 87086; 93005; 93010; 97116-GP; 97161-GP; 99285-25; C9803; J0131; J1644; U0003

== ENCOUNTER 2020-09-14 14:29 | Inpatient (IN) | payer OTHER ==
[2020-09-14] MEDS ORDERED: ONDANSETRON 4 MG TABLET PO ONE (15:28)
[2020-09-14] MEDS ORDERED: ONDANSETRON 4 MG/2 ML VIAL ONE (15:50)
[2020-09-14] MEDS ORDERED: ONDANSETRON 4 MG/2 ML VIAL IVPB ONE (15:55)
[2020-09-14 16:13] LABS: BASO % 0.3 % (0-2.0); HEMATOCRIT 34.9 % (32.4-45.2); HEMOGLOBIN 11.2 GM/dL (10.7-15.3); LYMPH % 15.9 % (8-40); MCH 21.3 pg (25.7-33.7); MEAN CELL VOLUME 66.6 fl (80-96); MEAN PLT VOLUME 9.1 fl (7.5-11.1); MONO % 5.5 % (3.8-10.2); NEUT % 76.3 % (42.8-82.8); PLATELET COUNT 247 K/MM3 (134-434); RBC 5.23 M/mm3 (3.60-5.2); RDW 16.6 % (11.6-15.6); WHITE BLOOD COUNT 7.9 K/mm3 (4.0-10.0)
[2020-09-14 16:23] LABS: INR 0.9 (0.83-1.09); PROTHROMBIN TIME (PATIENT) 10.9 SEC (9.7-13.0)
[2020-09-14 16:26] LABS: ACTIVATED PTT 26.8 SECONDS (25.2-36.5)
[2020-09-14 16:35] LABS: ALBUMIN 3.6 g/dl (3.4-5.0); BLOOD UREA NITROGEN 41.9 mg/dL (7-18); CALCIUM 8.7 mg/dL (8.5-10.1); MAGNESIUM 2.7 mg/dL (1.8-2.4)
[2020-09-14 16:38] LABS: PHOSPHOROUS 4.7 mg/dL (2.5-4.9)
[2020-09-14 16:39] LABS: BILIRUBIN,TOTAL 0.3 mg/dL (0.2-1); TOT PROT 7.2 g/dl (6.4-8.2)
[2020-09-14 16:43] LABS: N-TERMINAL BNP 431.6 pg/ml (5-450)
[2020-09-14] MEDS ORDERED: INSULIN REGULAR HUMAN 100 UNITS/ML *VIAL IVPUSH ONE ×3 (16:59→23:33)
[2020-09-14] MEDS ORDERED: SODIUM CHLORIDE 0.9% 500 ML INFUS.BAG IV ONE (16:59)
[2020-09-14] MEDS ORDERED: INSULIN REGULAR HUMAN 100 UNITS/ML *VIAL ONE ×3 (17:14→23:31)
[2020-09-14 17:51] LABS: ANISOCYTOSIS 1+; MACROCYTOSIS 0; OVALOCYTE 1+; PLATELET ESTIMATE NORMAL; TEAR DROP CELLS 1+
[2020-09-14] MEDS ORDERED: ACETAMINOPHEN 1000 MG/100 ML BAG IVPB ONE (18:57)
[2020-09-14] MEDS ORDERED: ACETAMINOPHEN INJECTION 100 ML IVPB ONE (19:32)
[2020-09-14 20:00] LABS: CALCIUM 8.6 mg/dL (8.5-10.1)
[2020-09-14 20:01] LABS: BLOOD UREA NITROGEN 42.9 mg/dL (7-18)
[2020-09-14] MEDS ORDERED: LACTATED RINGERS SOLUTION 1000 ML INFUS.BAG IV ONE (23:33)
[2020-09-15 01:05] LABS: VENOUS BASE EXCESS -5.2 mmol/L (-2-2); VENOUS O2 SATURATION 90.5 % (70-80); VENOUS PH 7.332 (7.310-7.410)
[2020-09-15 01:24] LABS: CHLORIDE 107 mmol/L (98-107); SODIUM 139 mmol/L (136-145)
[2020-09-15 01:26] LABS: CALCIUM 8.9 mg/dL (8.5-10.1)
[2020-09-15 01:27] LABS: BLOOD UREA NITROGEN 38.3 mg/dL (7-18); GLUCOSE,RANDOM 208 mg/dL (74-106)
[2020-09-15 01:28] LABS: EPI CELLS 30 /uL (0-25.1); HYALINE CASTS 4 /uL (0-3.1); URINE APPEARANCE CLOUDY; URINE BACTERIA 3573 /uL (0-1359); URINE BILIRUBIN NEGATIVE (NEGATIVE); URINE COLOR YELLOW; URINE GLUCOSE (UA) 3+ (NEGATIVE); URINE KETONE NEGATIVE (NEGATIVE); URINE LEUK ESTERASE NEGATIVE (NEGATIVE); URINE NITRITE NEGATIVE (NEGATIVE); URINE PROTEIN NEGATIVE (NEGATIVE); URINE UROBILINOGEN 0.2 mg/dL (0.2-1.0); URINE WBC 47 /uL (0-25.8)
[2020-09-15 01:28] LABS: ALBUMIN 3.4 g/dl (3.4-5.0); ANION GAP 9 MMOL/L (8-16); CO2 23 mmol/L (21-32)
[2020-09-15 01:30] LABS: CREATININE 1.8 mg/dL (0.55-1.3); SGOT/AST 16 U/L (15-37)
[2020-09-15 01:31] LABS: BILIRUBIN,TOTAL 0.2 mg/dL (0.2-1); TOT PROT 6.8 g/dl (6.4-8.2)
[2020-09-15 01:32] LABS: SGPT/ALT 29 U/L (13-61)
[2020-09-15] MEDS ORDERED: CEFTRIAXONE 1,000 MG in DEXTROSE 5%-WATER - 50 ML IVPB ONE (01:32)
[2020-09-15 01:34] LABS: ALK PHOS 99 U/L (45-117)
[2020-09-15 01:39] LABS: URINE RBC 820.4 /uL (0-23.9); YEAST FEW (NEGATIVE)
[2020-09-15] MEDS ORDERED: PIPERACILLIN/TAZOB 3.375 GM 3.375 GM in DEXTROSE 5%-WATER - 50 ML IVPB ONE (01:40)
[2020-09-15] MEDS ORDERED: SODIUM CHLORIDE 500 ML IV STA (01:41)
[2020-09-15] MEDS ORDERED: PIPERACILLIN/TAZOB 3.375 GM 3.375 GM/50 ML BAG IVPB ONE (02:56)
[2020-09-15] MEDS ORDERED: ACETAMINOPHEN 1000 MG/100 ML BAG IVPB PRN (04:53)
[2020-09-15] MEDS ORDERED: SODIUM CHLORIDE 1,000 ML IV SCH ×2 (05:00→14:40)
[2020-09-15] MEDS ORDERED: ALBUTEROL SO4 HFA INHALER IH ONE (05:40)
[2020-09-15] MEDS: ALBUTEROL SO4 HFA INHALER IH PRN (05:45)
[2020-09-15] MEDS ORDERED: ALBUTEROL SO4 0.083% IH SOL 2.5 MG/3 ML VIAL.NEB. NEB ONE (06:51)
[2020-09-15] MEDS: INSULIN SLIDING SCALE (NOVOLOG) 1 VIAL SQ SCH ×4 (06:58→21:35)
[2020-09-15] MEDS: ALBUTEROL SO4 0.083% IH SOL 2.5 MG/3 ML VIAL.NEB. NEB SCH ×4 (08:10→20:56)
[2020-09-15 08:20] LABS: ALBUMIN 3.1 g/dl (3.4-5.0); CALCIUM 8.3 mg/dL (8.5-10.1)
[2020-09-15 08:21] LABS: BLOOD UREA NITROGEN 30.5 mg/dL (7-18); MAGNESIUM 2.5 mg/dL (1.8-2.4)
[2020-09-15 08:24] LABS: CREATININE 1.5 mg/dL (0.55-1.3)
[2020-09-15 08:25] LABS: BILIRUBIN,TOTAL 0.3 mg/dL (0.2-1); TOT PROT 6.1 g/dl (6.4-8.2)
[2020-09-15 09:01] LABS: HEMATOCRIT 32.6 % (32.4-45.2); HEMOGLOBIN 10.5 GM/dL (10.7-15.3); MCH 21.8 pg (25.7-33.7); MCHC 32.4 g/dl (32.0-36.0); MEAN CELL VOLUME 67.4 fl (80-96); MEAN PLT VOLUME 10.5 fl (7.5-11.1); PLATELET COUNT 141 K/MM3 (134-434); RBC 4.84 M/mm3 (3.60-5.2); RDW 16.8 % (11.6-15.6)
[2020-09-15 09:02] LABS: WHITE BLOOD COUNT 12.2 K/mm3 (4.0-10.0)
[2020-09-15] MEDS ORDERED: PIPERACILLIN/TAZOB 2.25 GM 2.25 GM in DEXTROSE 5%-WATER - 50 ML IVPB SCH (10:00)
[2020-09-15] MEDS ORDERED: ENOXAPARIN NA (PORCINE) 40 MG/0.4 ML DISP.SYRIN SQ SCH (10:00)
[2020-09-15] MEDS ORDERED: PIPERACILLIN/TAZOB 2.25 GM 2.25 GM/50 ML BAG IVPB ONE ×2 (10:31→15:36)
[2020-09-15] MEDS ORDERED: amLODIPine BESYLATE 5 MG TABLET (FP) ONE (10:32)
[2020-09-15] MEDS ORDERED: ENOXAPARIN NA (PORCINE) 30 MG/0.3 ML DISP.SYRIN SQ ONE (10:32)
[2020-09-15 11:13] LABS: ANISOCYTOSIS 1+; MACROCYTOSIS 0; PLATELET ESTIMATE DECREASED; TARGET CELLS 1+; TEAR DROP CELLS 1+
[2020-09-15] MEDS: amLODIPine BESYLATE 10 MG TABLET (FP) PO SCH (11:25)
[2020-09-15] MEDS: ENOXAPARIN NA (PORCINE) 30 MG/0.3 ML DISP.SYRIN SQ SCH (11:25)
[2020-09-15] MEDS: BUDESONIDE/FORMETEROL FUMARATE 160/4.5 mcg INHALER IH SCH (11:25)
[2020-09-15] MEDS ORDERED: ACETAMINOPHEN INJECTION 100 ML IVPB ONE ×2 (12:44→19:37)
[2020-09-15] MEDS: PIPERACILLIN/TAZOB 2.25 GM 2.25 GM in DEXTROSE 5%-WATER - 50 ML IVPB SCH ×2 (15:35→21:23)
[2020-09-15 20:49] VITALS: BMI 34.2
[2020-09-15] MEDS ORDERED: PIPERACILLIN/TAZOBACTAM 2.25 GM VIAL IVPB ONE (21:13)
[2020-09-15] MEDS ORDERED: DEXTROSE 5%-WATER - 50 ML IVPB ONE (21:13)
[2020-09-15] MEDS: DONEPEZIL HCL 10 MG TABLET (FP) PO SCH (21:24)
[2020-09-15] MEDS: MIRTAZAPINE 15 MG TABLET (FP) PO SCH (21:24)
[2020-09-15] MEDS ORDERED: INSULIN (NOVOLOG) ASPART 100 UNITS/ML 10ML VIAL ONE (21:28)
[2020-09-15] MEDS: SODIUM CHLORIDE 1,000 ML IV SCH ×2 (21:32→23:00)
[2020-09-15] MEDS ORDERED: ATORVASTATIN CA 40 MG TABLET (FP) PO SCH (22:00)
[2020-09-16] MEDS: BUDESONIDE/FORMETEROL FUMARATE 160/4.5 mcg INHALER IH SCH ×3 (00:15→22:13)
[2020-09-16] MEDS ORDERED: DEXTROSE 5%-WATER - 50 ML IVPB ONE ×4 (02:00→21:50)
[2020-09-16] MEDS ORDERED: PIPERACILLIN/TAZOBACTAM 2.25 GM VIAL IVPB ONE ×4 (02:00→21:50)
[2020-09-16] MEDS: PIPERACILLIN/TAZOB 2.25 GM 2.25 GM in DEXTROSE 5%-WATER - 50 ML IVPB SCH ×4 (02:03→21:58)
[2020-09-16] MEDS: INSULIN SLIDING SCALE (NOVOLOG) 1 VIAL SQ SCH ×4 (06:26→22:14)
[2020-09-16] MEDS: ALBUTEROL SO4 0.083% IH SOL 2.5 MG/3 ML VIAL.NEB. NEB SCH ×4 (08:40→20:19)
[2020-09-16 08:49] LABS: BASO % 0.3 % (0-2.0); EOS % 3.6 % (0-4.5); HEMATOCRIT 30.8 % (32.4-45.2); MCH 21.5 pg (25.7-33.7); MCHC 32.3 g/dl (32.0-36.0); MEAN CELL VOLUME 66.4 fl (80-96); MEAN PLT VOLUME 8.8 fl (7.5-11.1); MONO % 5.5 % (3.8-10.2); NEUT % 69.6 % (42.8-82.8); PLATELET COUNT 236 K/MM3 (134-434); RBC 4.64 M/mm3 (3.60-5.2); RDW 16.6 % (11.6-15.6); WHITE BLOOD COUNT 8.1 K/mm3 (4.0-10.0)
[2020-09-16 09:23] LABS: BLOOD UREA NITROGEN 23.3 mg/dL (7-18); CALCIUM 8.1 mg/dL (8.5-10.1); CREATININE 1.5 mg/dL (0.55-1.3); MAGNESIUM 2.4 mg/dL (1.8-2.4)
[2020-09-16] MEDS: ENOXAPARIN NA (PORCINE) 30 MG/0.3 ML DISP.SYRIN SQ SCH (09:57)
[2020-09-16] MEDS: ALBUTEROL SO4 HFA INHALER IH PRN (09:58)
[2020-09-16] MEDS: amLODIPine BESYLATE 10 MG TABLET (FP) PO SCH ×2 (09:58→12:05)
[2020-09-16] MEDS: SODIUM CHLORIDE 1,000 ML IV SCH (12:06)
[2020-09-16] MEDS ORDERED: SODIUM ZIRCONIUM CYCLOSILICATE (LOKELMA) 5 GM PACKET PO ONE (17:00)
[2020-09-16] MEDS ORDERED: INSULIN (LEVEMIR) 100 UNITS/ML UNITS SQ SCH (22:00)
[2020-09-16] MEDS ORDERED: INSULIN (NOVOLOG) ASPART 100 UNITS/ML 10ML VIAL ONE (22:12)
[2020-09-17] MEDS ORDERED: DEXTROSE 5%-WATER - 50 ML IVPB ONE ×2 (03:15→09:27)
[2020-09-17] MEDS ORDERED: PIPERACILLIN/TAZOBACTAM 2.25 GM VIAL IVPB ONE ×2 (03:15→09:27)
[2020-09-17] MEDS: PIPERACILLIN/TAZOB 2.25 GM 2.25 GM in DEXTROSE 5%-WATER - 50 ML IVPB SCH ×2 (03:25→09:35)
[2020-09-17] MEDS: INSULIN SLIDING SCALE (NOVOLOG) 1 VIAL SQ SCH ×4 (06:30→21:15)
[2020-09-17] MEDS: ALBUTEROL SO4 0.083% IH SOL 2.5 MG/3 ML VIAL.NEB. NEB SCH ×4 (08:05→20:51)
[2020-09-17 09:11] LABS: HEMATOCRIT 28.1 % (32.4-45.2); HEMOGLOBIN 9.1 GM/dL (10.7-15.3); MCH 21.6 pg (25.7-33.7); MCHC 32.5 g/dl (32.0-36.0); MEAN CELL VOLUME 66.5 fl (80-96); PLATELET COUNT 204 K/MM3 (134-434); RBC 4.22 M/mm3 (3.60-5.2); RDW 16.5 % (11.6-15.6); WHITE BLOOD COUNT 7.6 K/mm3 (4.0-10.0)
[2020-09-17] MEDS ORDERED: PT OWN MED DRAWER 7, Y5N ONE (09:26)
[2020-09-17] MEDS: amLODIPine BESYLATE 10 MG TABLET (FP) PO SCH (09:36)
[2020-09-17] MEDS: ENOXAPARIN NA (PORCINE) 30 MG/0.3 ML DISP.SYRIN SQ SCH (09:36)
[2020-09-17] MEDS: INSULIN (LEVEMIR) 100 UNITS/ML UNITS SQ SCH ×2 (09:37→21:14)
[2020-09-17] MEDS: BUDESONIDE/FORMETEROL FUMARATE 160/4.5 mcg INHALER IH SCH ×2 (09:37→21:16)
[2020-09-17 09:47] LABS: ALBUMIN 2.7 g/dl (3.4-5.0); BLOOD UREA NITROGEN 16.9 mg/dL (7-18)
[2020-09-17 09:48] LABS: CALCIUM 7.7 mg/dL (8.5-10.1)
[2020-09-17 09:50] LABS: CREATININE 1.3 mg/dL (0.55-1.3)
[2020-09-17 09:52] LABS: BILIRUBIN,TOTAL 0.4 mg/dL (0.2-1); TOT PROT 5.2 g/dl (6.4-8.2)
[2020-09-17] MEDS ORDERED: MEROPENEM 1 GM in DEXTROSE 5%-WATER 100 ML IVPB SCH (10:45)
[2020-09-17] MEDS ORDERED: INSULIN (NOVOLOG) ASPART 100 UNITS/ML 10ML VIAL ONE (11:42)
[2020-09-17] MEDS ORDERED: DEXTROSE 5%-WATER 100 ML IVPB ONE ×2 (11:42→20:55)
[2020-09-17] MEDS ORDERED: MEROPENEM 1 GM VIAL (RESTRICTED TO ID) IVPB ONE ×2 (11:42→20:55)
[2020-09-17] MEDS: MEROPENEM 1 GM in DEXTROSE 5%-WATER 100 ML IVPB SCH ×2 (11:44→21:14)
[2020-09-17] MEDS ORDERED: ACETAMINOPHEN 325 MG TABLET (FP) PO PRN (20:48)
[2020-09-18] MEDS: ALBUTEROL SO4 HFA INHALER IH PRN (02:20)
[2020-09-18] MEDS: INSULIN SLIDING SCALE (NOVOLOG) 1 VIAL SQ SCH ×4 (06:48→22:34)
[2020-09-18] MEDS: ALBUTEROL SO4 0.083% IH SOL 2.5 MG/3 ML VIAL.NEB. NEB SCH ×3 (09:00→16:51)
[2020-09-18] MEDS: INSULIN (LEVEMIR) 100 UNITS/ML UNITS SQ SCH ×2 (09:47→22:35)
[2020-09-18] MEDS: amLODIPine BESYLATE 10 MG TABLET (FP) PO SCH (09:47)
[2020-09-18] MEDS: ENOXAPARIN NA (PORCINE) 30 MG/0.3 ML DISP.SYRIN SQ SCH (09:47)
[2020-09-18] MEDS: BUDESONIDE/FORMETEROL FUMARATE 160/4.5 mcg INHALER IH SCH ×2 (09:48→22:35)
[2020-09-18] MEDS ORDERED: MEROPENEM 1 GM in DEXTROSE 5%-WATER 100 ML IVPB SCH (10:00)
[2020-09-18] MEDS ORDERED: MEROPENEM 1 GM VIAL (RESTRICTED TO ID) IVPB ONE ×2 (12:50→17:51)
[2020-09-18] MEDS ORDERED: DEXTROSE 5%-WATER 100 ML IVPB ONE ×2 (12:50→17:51)
[2020-09-18] MEDS: MEROPENEM 1 GM in DEXTROSE 5%-WATER 100 ML IVPB SCH ×2 (12:52→17:53)
[2020-09-18] MEDS ORDERED: MELATONIN 5 MG TABLETS PO PRN (22:28)
[2020-09-18] MEDS: MIRTAZAPINE 15 MG TABLET (FP) PO SCH (22:34)
[2020-09-18] MEDS ORDERED: INSULIN (NOVOLOG) ASPART 100 UNITS/ML 10ML VIAL ONE (22:46)
[2020-09-19] MEDS ORDERED: PT OWN MED DRAWER 7, Y5N ONE (01:32)
[2020-09-19] MEDS ORDERED: MEROPENEM 1 GM VIAL (RESTRICTED TO ID) IVPB ONE ×3 (01:56→17:38)
[2020-09-19] MEDS ORDERED: DEXTROSE 5%-WATER 100 ML IVPB ONE ×3 (01:56→17:38)
[2020-09-19] MEDS: VANCOMYCIN 250 MG/5 ML ORAL SOLUTION PO SCH ×4 (02:00→17:59)
[2020-09-19] MEDS: MEROPENEM 1 GM in DEXTROSE 5%-WATER 100 ML IVPB SCH ×3 (02:02→17:59)
[2020-09-19] MEDS ORDERED: INSULIN (NOVOLOG) ASPART 100 UNITS/ML 10ML VIAL ONE (06:39)
[2020-09-19] MEDS: INSULIN SLIDING SCALE (NOVOLOG) 1 VIAL SQ SCH ×4 (06:44→21:59)
[2020-09-19 09:00] LABS: BASO % 0.3 % (0-2.0); EOS % 4.2 % (0-4.5); HEMOGLOBIN 9.2 GM/dL (10.7-15.3); LYMPH % 24.6 % (8-40); MCH 21.6 pg (25.7-33.7); MCHC 32.7 g/dl (32.0-36.0); MEAN CELL VOLUME 66.2 fl (80-96); MEAN PLT VOLUME 8.7 fl (7.5-11.1); MONO % 5.3 % (3.8-10.2); NEUT % 65.6 % (42.8-82.8); PLATELET COUNT 238 K/MM3 (134-434); RBC 4.23 M/mm3 (3.60-5.2); RDW 16.9 % (11.6-15.6); WHITE BLOOD COUNT 7.4 K/mm3 (4.0-10.0)
[2020-09-19] MEDS: ENOXAPARIN NA (PORCINE) 30 MG/0.3 ML DISP.SYRIN SQ SCH (09:12)
[2020-09-19] MEDS: BUDESONIDE/FORMETEROL FUMARATE 160/4.5 mcg INHALER IH SCH ×2 (09:12→21:40)
[2020-09-19] MEDS: amLODIPine BESYLATE 10 MG TABLET (FP) PO SCH (09:12)
[2020-09-19] MEDS: INSULIN (LEVEMIR) 100 UNITS/ML UNITS SQ SCH ×2 (09:12→21:58)
[2020-09-19 09:21] LABS: BLOOD UREA NITROGEN 15.6 mg/dL (7-18)
[2020-09-19 09:24] LABS: CALCIUM 8.1 mg/dL (8.5-10.1); CREATININE 1.1 mg/dL (0.55-1.3)
[2020-09-19] MEDS: ALBUTEROL SO4 2.5/IPRATROPIUM 0.5 INH SOL 3 ML VIAL.NEB. NEB PRN ×2 (13:44→20:20)
[2020-09-19] MEDS: LOSARTAN POTASSIUM 25 MG TABLET PO SCH (13:48)
[2020-09-19 14:50] LABS: ANISOCYTOSIS 1+
[2020-09-19 14:51] LABS: PLATELET ESTIMATE NORMAL
[2020-09-19] MEDS: MIRTAZAPINE 15 MG TABLET (FP) PO SCH (21:40)
[2020-09-19] MEDS: DONEPEZIL HCL 10 MG TABLET (FP) PO SCH (21:44)
[2020-09-20] MEDS: VANCOMYCIN 250 MG/5 ML ORAL SOLUTION PO SCH ×3 (00:05→12:36)
[2020-09-20] MEDS ORDERED: DEXTROSE 5%-WATER 100 ML IVPB ONE ×2 (01:20→09:46)
[2020-09-20] MEDS ORDERED: MEROPENEM 1 GM VIAL (RESTRICTED TO ID) IVPB ONE ×2 (01:20→09:46)
[2020-09-20] MEDS: MEROPENEM 1 GM in DEXTROSE 5%-WATER 100 ML IVPB SCH ×2 (01:26→10:01)
[2020-09-20] MEDS: INSULIN SLIDING SCALE (NOVOLOG) 1 VIAL SQ SCH ×2 (06:00→11:21)
[2020-09-20 08:55] LABS: BASO % 0.4 % (0-2.0); EOS % 3.7 % (0-4.5); HEMATOCRIT 28.1 % (32.4-45.2); HEMOGLOBIN 9.2 GM/dL (10.7-15.3); LYMPH % 25.2 % (8-40); MCH 21.5 pg (25.7-33.7); MCHC 32.6 g/dl (32.0-36.0); MEAN CELL VOLUME 65.7 fl (80-96); MEAN PLT VOLUME 8.7 fl (7.5-11.1); MONO % 7.2 % (3.8-10.2); NEUT % 63.5 % (42.8-82.8); PLATELET COUNT 259 K/MM3 (134-434); RBC 4.27 M/mm3 (3.60-5.2); RDW 16.8 % (11.6-15.6); WHITE BLOOD COUNT 7.1 K/mm3 (4.0-10.0)
[2020-09-20 09:37] LABS: ALBUMIN 2.7 g/dl (3.4-5.0); BLOOD UREA NITROGEN 17.2 mg/dL (7-18); CALCIUM 8.2 mg/dL (8.5-10.1)
[2020-09-20 09:39] LABS: BILIRUBIN,TOTAL 0.3 mg/dL (0.2-1); CREATININE 1.1 mg/dL (0.55-1.3)
[2020-09-20 09:40] LABS: TOT PROT 5.5 g/dl (6.4-8.2)
[2020-09-20] MEDS ORDERED: FUROSEMIDE 40 MG TABLET (FP) PO SCH (10:00)
[2020-09-20] MEDS: INSULIN (LEVEMIR) 100 UNITS/ML UNITS SQ SCH (10:05)
[2020-09-20] MEDS: LOSARTAN POTASSIUM 25 MG TABLET PO SCH (10:05)
[2020-09-20] MEDS: amLODIPine BESYLATE 10 MG TABLET (FP) PO SCH (10:05)
[2020-09-20] MEDS: ENOXAPARIN NA (PORCINE) 30 MG/0.3 ML DISP.SYRIN SQ SCH (10:06)
[2020-09-20] MEDS: BUDESONIDE/FORMETEROL FUMARATE 160/4.5 mcg INHALER IH SCH (10:06)
[2020-09-20] MEDS ORDERED: INSULIN (NOVOLOG) ASPART 100 UNITS/ML 10ML VIAL ONE (11:15)
[2020-09-20 14:23] VITALS: BP 114/98; PULSE 76; TEMP 99.4
[2020-09-20] MEDS ORDERED: metroNIDAZOLE 250 MG TABLET PO ONE (15:33)
== END 2020-09-20 18:01 | disposition home or self-care (01) | DRG 392 ==
LOC: JER 14:29 → JERBED 19:00 → J6S 09-15 18:30
PROVIDERS: ADMIT Hospitalist; ATTEND Student in an Organized Health Care Education/Training Program
DX: K57.32 Diverticulitis of large intestine without perforation or abscess without bleeding (principal); E87.2 Acidosis; N17.9 Acute kidney failure, unspecified; N39.0 Urinary tract infection, site not specified; A04.72 Enterocolitis due to Clostridium difficile, not specified as recurrent; E87.1 Hypo-osmolality and hyponatremia; I13.0 Hypertensive heart and chronic kidney disease with heart failure and stage 1 through stage 4 chronic kidney disease, or unspecified chronic kidney disease; I50.32 Chronic diastolic (congestive) heart failure; I25.10 Atherosclerotic heart disease of native coronary artery without angina pectoris; E78.5 Hyperlipidemia, unspecified; J45.909 Unspecified asthma, uncomplicated; E11.65 Type 2 diabetes mellitus with hyperglycemia; Z79.4 Long term (current) use of insulin; E87.5 Hyperkalemia; Z95.2 Presence of prosthetic heart valve; B96.5 Pseudomonas (aeruginosa) (mallei) (pseudomallei) as the cause of diseases classified elsewhere; G47.00 Insomnia, unspecified; K59.00 Constipation, unspecified; Z91.14 Patient's other noncompliance with medication regimen; E66.9 Obesity, unspecified; E11.22 Type 2 diabetes mellitus with diabetic chronic kidney disease; N18.9 Chronic kidney disease, unspecified; Z68.34 Body mass index [BMI] 34.0-34.9, adult
CPT/HCPCS: 36415; 71045-TC-FY; 71275-TC; 74174-TC; 80048; 80053; 81003; 82010; 82550; 82803; 82962; 83605; 83690; 83735; 83880; 84100; 84484; 85025; 85027; 85379; 85610; 85730; 87040; 87086; 87186; 87324; 87449; 93005; 93010; 94640; 99291; 99292; C9803; J0131; U0003

== ENCOUNTER 2020-09-27 06:44 | Emergency (ER) | payer OTHER ==
[2020-09-27 06:50] VITALS: BMI 32.4
[2020-09-27] MEDS ORDERED: ONDANSETRON 4 MG/2 ML VIAL IVPUSH ONE (07:50)
[2020-09-27] MEDS ORDERED: SODIUM CHLORIDE 0.9% 500 ML INFUS.BAG IV ONE (07:50)
[2020-09-27] MEDS ORDERED: FAMOTIDINE 20 MG/50 ML IVPB 20 MG/50 ML MG IVPB ONE ×2 (07:50→08:43)
[2020-09-27] MEDS ORDERED: ACETAMINOPHEN 1000 MG/100 ML VIAL (NON FORMULARY) IVPB ONE (07:50)
[2020-09-27] MEDS ORDERED: ACETAMINOPHEN INJECTION 100 ML IVPB ONE (08:42)
[2020-09-27] MEDS ORDERED: ONDANSETRON 4 MG/2 ML VIAL ONE (08:42)
[2020-09-27 08:54] LABS: EOS % 0.7 % (0-4.5); HEMATOCRIT 33.2 % (32.4-45.2); HEMOGLOBIN 10.9 GM/dL (10.7-15.3); LYMPH % 16.2 % (8-40); MCH 21.9 pg (25.7-33.7); MCHC 32.7 g/dl (32.0-36.0); MEAN CELL VOLUME 66.9 fl (80-96); MONO % 5.1 % (3.8-10.2); PLATELET COUNT 298 K/MM3 (134-434); RBC 4.96 M/mm3 (3.60-5.2); RDW 17.2 % (11.6-15.6); WHITE BLOOD COUNT 9.1 K/mm3 (4.0-10.0)
[2020-09-27 09:02] LABS: INR 1.08 (0.83-1.09); PROTHROMBIN TIME (PATIENT) 13.2 SEC (9.7-13.0)
[2020-09-27 09:04] LABS: ACTIVATED PTT 29.6 SECONDS (25.2-36.5)
[2020-09-27 09:11] LABS: POTASSIUM 4.8 mmol/L (3.5-5.1)
[2020-09-27 09:14] LABS: BLOOD UREA NITROGEN 19.9 mg/dL (7-18)
[2020-09-27 09:15] LABS: ALBUMIN 3.6 g/dl (3.4-5.0); MAGNESIUM 2.1 mg/dL (1.8-2.4)
[2020-09-27 09:17] LABS: CREATININE 1.4 mg/dL (0.55-1.3)
[2020-09-27 09:18] LABS: PHOSPHOROUS 3.8 mg/dL (2.5-4.9)
[2020-09-27 09:19] LABS: BILIRUBIN,TOTAL 0.3 mg/dL (0.2-1); TOT PROT 6.7 g/dl (6.4-8.2)
[2020-09-27 09:24] LABS: URINE APPEARANCE CLEAR; URINE BILIRUBIN NEGATIVE (NEGATIVE); URINE COLOR YELLOW; URINE GLUCOSE (UA) 2+ (NEGATIVE); URINE KETONE NEGATIVE (NEGATIVE); URINE LEUK ESTERASE NEGATIVE (NEGATIVE); URINE NITRITE NEGATIVE (NEGATIVE); URINE PROTEIN TRACE (NEGATIVE); URINE UROBILINOGEN 0.2 mg/dL (0.2-1.0)
[2020-09-27 11:21] LABS: ANISOCYTOSIS 1+; MACROCYTOSIS 0; PLATELET ESTIMATE NORMAL
[2020-09-27 11:57] VITALS: BP 124/57; PULSE 88; TEMP 98.2
== END 2020-09-27 13:27 | disposition home or self-care (01) ==
LOC: JER 06:44
PROC: 3E033NZ Introduction of Analgesics, Hypnotics, Sedatives into Peripheral Vein, Percutaneous Approach (ICD-10-PCS; principal; 2020-09-27)
PROC: 3E033GC Introduction of Other Therapeutic Substance into Peripheral Vein, Percutaneous Approach (ICD-10-PCS; 2020-09-27)
DX: R10.84 Generalized abdominal pain (principal); R11.0 Nausea
CPT/HCPCS: 36415; 71045-TC-FY; 74177-TC; 80053; 81003; 83605; 83690; 83735; 84100; 85025; 85610; 85730; 87086; 93005; 93010; 99285-25; J0131; Q9967

== ENCOUNTER 2020-11-28 13:58 | Observation (INO) | payer OTHER ==
[2020-11-28] MEDS ORDERED: FAMOTIDINE 20 MG/50 ML IVPB 20 MG/50 ML MG IVPB ONE ×2 (15:01→18:16)
[2020-11-28] MEDS ORDERED: ALBUTEROL SO4 2.5/IPRATROPIUM 0.5 INH SOL 3 ML VIAL.NEB. NEB ONE ×2 (15:06→18:15)
[2020-11-28] MEDS ORDERED: ONDANSETRON 4 MG/2 ML VIAL IVPUSH ONE (15:24)
[2020-11-28 16:28] LABS: BASO % 0.5 % (0-2.0); HEMATOCRIT 35.9 % (32.4-45.2); HEMOGLOBIN 11.7 GM/dL (10.7-15.3); LYMPH % 15.3 % (8-40); MCH 22.3 pg (25.7-33.7); MCHC 32.4 g/dl (32.0-36.0); MEAN CELL VOLUME 68.6 fl (80-96); MONO % 5.3 % (3.8-10.2); NEUT % 76.9 % (42.8-82.8); PLATELET COUNT 317 K/MM3 (134-434); RBC 5.23 M/mm3 (3.60-5.2); WHITE BLOOD COUNT 10.3 K/mm3 (4.0-10.0)
[2020-11-28 16:46] LABS: INR 0.9 (0.83-1.09); PROTHROMBIN TIME (PATIENT) 10.9 SEC (9.7-13.0)
[2020-11-28] MEDS ORDERED: INSULIN (LEVEMIR) 100 UNITS/ML UNITS SQ ONE ×2 (16:49→18:17)
[2020-11-28 16:50] LABS: ACTIVATED PTT 30.2 SECONDS (25.2-36.5); CHLORIDE 98 mmol/L (98-107); POTASSIUM 4.6 mmol/L (3.5-5.1); SODIUM 135 mmol/L (136-145)
[2020-11-28 16:53] LABS: ALBUMIN 3.3 g/dl (3.4-5.0); ANION GAP 8 MMOL/L (8-16); BLOOD UREA NITROGEN 17.5 mg/dL (7-18); CO2 29 mmol/L (21-32); GLUCOSE,RANDOM 311 mg/dL (74-106); LIPASE 105 U/L (73-393); MAGNESIUM 2.2 mg/dL (1.8-2.4)
[2020-11-28 16:54] LABS: CALCIUM 8.3 mg/dL (8.5-10.1)
[2020-11-28 16:56] LABS: CREATININE 1.3 mg/dL (0.55-1.3); SGOT/AST 20 U/L (15-37); SGPT/ALT 25 U/L (13-61)
[2020-11-28 16:58] LABS: BILIRUBIN,TOTAL 0.2 mg/dL (0.2-1); TOT PROT 6.5 g/dl (6.4-8.2)
[2020-11-28 16:59] LABS: ALK PHOS 131 U/L (45-117)
[2020-11-28] MEDS ORDERED: LORazepam 2 MG TABLET PO ONE (17:49)
[2020-11-28] MEDS ORDERED: LORazepam 1 MG TABLET ONE (18:16)
[2020-11-28] MEDS ORDERED: ONDANSETRON 4 MG/2 ML VIAL ONE (18:16)
[2020-11-28] MEDS ORDERED: ALBUTEROL SO4 2.5/IPRATROPIUM 0.5 INH SOL 3 ML VIAL.NEB. NEB PRN (18:54)
[2020-11-28] MEDS ORDERED: ALBUTEROL SO4 HFA INHALER IH PRN (19:07)
[2020-11-28] MEDS ORDERED: ATORVASTATIN CA 40 MG TABLET (FP) ONE (23:09)
[2020-11-28] MEDS: INSULIN SLIDING SCALE (NOVOLOG) 1 VIAL SQ SCH (23:17)
[2020-11-28] MEDS: ATORVASTATIN CA 40 MG TABLET (FP) PO SCH (23:17)
[2020-11-29] MEDS: INSULIN SLIDING SCALE (NOVOLOG) 1 VIAL SQ SCH ×4 (07:52→22:21)
[2020-11-29 09:10] LABS: BASO % 0.3 % (0-2.0); EOS % 2.5 % (0-4.5); HEMATOCRIT 34.6 % (32.4-45.2); HEMOGLOBIN 11.3 GM/dL (10.7-15.3); LYMPH % 23.8 % (8-40); MCH 22.1 pg (25.7-33.7); MCHC 32.6 g/dl (32.0-36.0); MEAN CELL VOLUME 67.6 fl (80-96); MEAN PLT VOLUME 8.4 fl (7.5-11.1); MONO % 7.2 % (3.8-10.2); NEUT % 66.2 % (42.8-82.8); PLATELET COUNT 304 K/MM3 (134-434); RBC 5.12 M/mm3 (3.60-5.2); RDW 17.1 % (11.6-15.6); WHITE BLOOD COUNT 10.3 K/mm3 (4.0-10.0)
[2020-11-29 09:43] LABS: CHOLESTEROL 170 mg/dL (50-200); MAGNESIUM 2.6 mg/dL (1.8-2.4); PHOSPHOROUS 5.4 mg/dL (2.5-4.9)
[2020-11-29 09:44] LABS: LDL CHOLESTEROL (ONLY SJRH) 93 mg/dL (5-100)
[2020-11-29] MEDS ORDERED: LOSARTAN POTASSIUM 50 MG TABLET ONE (09:44)
[2020-11-29] MEDS ORDERED: ASPIRIN 81 MG CHEWABLE TABLETS ONE (09:44)
[2020-11-29] MEDS ORDERED: ENOXAPARIN NA (PORCINE) 40 MG/0.4 ML DISP.SYRIN SQ ONE (09:44)
[2020-11-29 09:48] LABS: TRIGLYCERIDES 125 mg/dL (0-150)
[2020-11-29 09:49] LABS: HDL CHOLESTEROL 59 mg/dL (40-60)
[2020-11-29] MEDS: ASPIRIN 81 MG CHEWABLE TABLETS PO SCH (09:56)
[2020-11-29] MEDS: ENOXAPARIN NA (PORCINE) 40 MG/0.4 ML DISP.SYRIN SQ SCH (09:57)
[2020-11-29] MEDS: amLODIPine BESYLATE 10 MG TABLET (FP) PO SCH (09:57)
[2020-11-29] MEDS: LOSARTAN POTASSIUM 50 MG TABLET PO SCH (09:57)
[2020-11-29] MEDS ORDERED: ALBUTEROL SO4 HFA INHALER IH ONE (20:26)
[2020-11-29] MEDS ORDERED: ALBUTEROL SO4 2.5/IPRATROPIUM 0.5 INH SOL 3 ML VIAL.NEB. NEB ONE (20:33)
[2020-11-29] MEDS ORDERED: ATORVASTATIN CA 40 MG TABLET (FP) ONE (22:15)
[2020-11-29] MEDS: ATORVASTATIN CA 40 MG TABLET (FP) PO SCH (22:21)
[2020-11-29] MEDS ORDERED: MELATONIN 5 MG TABLETS PO ONE (23:40)
[2020-11-29 23:50] VITALS: BMI 36.4
[2020-11-30] MEDS: INSULIN SLIDING SCALE (NOVOLOG) 1 VIAL SQ SCH ×4 (06:21→21:55)
[2020-11-30 08:45] LABS: BASO % 0.5 % (0-2.0); EOS % 2.7 % (0-4.5); HEMATOCRIT 31.5 % (32.4-45.2); HEMOGLOBIN 10.2 GM/dL (10.7-15.3); LYMPH % 22.7 % (8-40); MCH 22.1 pg (25.7-33.7); MCHC 32.3 g/dl (32.0-36.0); MEAN CELL VOLUME 68.4 fl (80-96); MEAN PLT VOLUME 8.6 fl (7.5-11.1); MONO % 5.8 % (3.8-10.2); NEUT % 68.3 % (42.8-82.8); PLATELET COUNT 253 K/MM3 (134-434); RBC 4.61 M/mm3 (3.60-5.2); RDW 16.5 % (11.6-15.6); WHITE BLOOD COUNT 7.9 K/mm3 (4.0-10.0)
[2020-11-30 09:05] LABS: BLOOD UREA NITROGEN 23.2 mg/dL (7-18); CALCIUM 8.2 mg/dL (8.5-10.1); MAGNESIUM 2.6 mg/dL (1.8-2.4)
[2020-11-30 09:09] LABS: BILIRUBIN,TOTAL 0.4 mg/dL (0.2-1)
[2020-11-30 09:10] LABS: CREATININE 1.2 mg/dL (0.55-1.3); PHOSPHOROUS 4.8 mg/dL (2.5-4.9); TOT PROT 5.9 g/dl (6.4-8.2)
[2020-11-30 09:12] LABS: POTASSIUM 4.2 mmol/L (3.5-5.1)
[2020-11-30] MEDS: ENOXAPARIN NA (PORCINE) 40 MG/0.4 ML DISP.SYRIN SQ SCH (10:36)
[2020-11-30] MEDS: ASPIRIN 81 MG CHEWABLE TABLETS PO SCH (10:37)
[2020-11-30] MEDS: amLODIPine BESYLATE 10 MG TABLET (FP) PO SCH (10:37)
[2020-11-30] MEDS: LOSARTAN POTASSIUM 50 MG TABLET PO SCH (10:37)
[2020-11-30] MEDS: predniSONE 20 MG TABLET (UD) PO SCH (16:39)
[2020-11-30] MEDS: BUDESONIDE/FORMETEROL FUMARATE 80/4.5 mcg INHALER IH SCH (21:54)
[2020-11-30] MEDS: ATORVASTATIN CA 40 MG TABLET (FP) PO SCH (21:54)
[2020-12-01] MEDS: INSULIN SLIDING SCALE (NOVOLOG) 1 VIAL SQ SCH ×2 (06:44→11:00)
[2020-12-01] MEDS ORDERED: INSULIN (LEVEMIR) 100 UNITS/ML UNITS SQ SCH ×3 (08:00→22:00)
[2020-12-01 08:29] LABS: HEMATOCRIT 31.1 % (32.4-45.2); HEMOGLOBIN 10.1 GM/dL (10.7-15.3); MCH 22.1 pg (25.7-33.7); MCHC 32.5 g/dl (32.0-36.0); MEAN PLT VOLUME 8.9 fl (7.5-11.1); PLATELET COUNT 257 K/MM3 (134-434); RBC 4.58 M/mm3 (3.60-5.2); RDW 16.6 % (11.6-15.6)
[2020-12-01 08:53] LABS: POTASSIUM 5.2 mmol/L (3.5-5.1)
[2020-12-01 08:59] LABS: CALCIUM 8.6 mg/dL (8.5-10.1)
[2020-12-01 09:00] LABS: BLOOD UREA NITROGEN 31.4 mg/dL (7-18)
[2020-12-01 09:03] LABS: CREATININE 1.2 mg/dL (0.55-1.3)
[2020-12-01] MEDS: ASPIRIN 81 MG CHEWABLE TABLETS PO SCH (09:11)
[2020-12-01] MEDS: predniSONE 20 MG TABLET (UD) PO SCH (09:12)
[2020-12-01] MEDS: amLODIPine BESYLATE 10 MG TABLET (FP) PO SCH (09:13)
[2020-12-01] MEDS: ENOXAPARIN NA (PORCINE) 40 MG/0.4 ML DISP.SYRIN SQ SCH (09:13)
[2020-12-01] MEDS: LOSARTAN POTASSIUM 50 MG TABLET PO SCH (09:13)
[2020-12-01] MEDS: BUDESONIDE/FORMETEROL FUMARATE 80/4.5 mcg INHALER IH SCH (09:14)
[2020-12-01] MEDS ORDERED: DONEPEZIL HCL 10 MG TABLET (FP) PO SCH (10:00)
[2020-12-01] MEDS ORDERED: DOBUTAMINE HCL 100,000 MCG in DEXTROSE 5%-WATER - 92 ML IVPB ONE (10:24)
[2020-12-01 15:42] VITALS: BP 140/88; PULSE 97; TEMP 98.3
[2020-12-01] MEDS ORDERED: MIRTAZAPINE 15 MG TABLET (FP) PO SCH (22:00)
== END 2020-12-01 19:22 | disposition home health service (06) ==
LOC: JER 13:58 → INTOOBSV 15:32 → JERBED 15:32 → J4W 11-29 23:08
PROVIDERS: ADMIT Internal Medicine; ATTEND Internal Medicine
PROC: 3E0F7GC Introduction of Other Therapeutic Substance into Respiratory Tract, Via Natural or Artificial Opening (ICD-10-PCS; principal; 2020-11-28)
PROC: 3E033GC Introduction of Other Therapeutic Substance into Peripheral Vein, Percutaneous Approach (ICD-10-PCS; 2020-11-28)
PROC: 3E013VG Introduction of Insulin into Subcutaneous Tissue, Percutaneous Approach (ICD-10-PCS; 2020-11-28)
DX: I25.10 Atherosclerotic heart disease of native coronary artery without angina pectoris (principal); Z95.5 Presence of coronary angioplasty implant and graft; I11.0 Hypertensive heart disease with heart failure; J45.909 Unspecified asthma, uncomplicated; D64.9 Anemia, unspecified; K21.9 Gastro-esophageal reflux disease without esophagitis; E11.9 Type 2 diabetes mellitus without complications; Z95.2 Presence of prosthetic heart valve; E78.00 Pure hypercholesterolemia, unspecified; Z98.890 Other specified postprocedural states
CPT/HCPCS: 36415; 71045-TC-FY; 78452-TC; 80048; 80053; 80061; 82550; 82553; 82962; 83036; 83690; 83721; 83735; 84100; 84443; 84484; 85025; 85027; 85610; 85730; 93005; 93010; 93017; 93306-TC; 94640; 96365; 96367; 96372; 96375; 99285-25; A9502; C9803; G0378; U0003

== ENCOUNTER 2022-12-20 14:03 | Emergency (ER) | payer OTHER ==
[2022-12-20 14:31] VITALS: RESP 18; TEMP 97.4; BMI 29.2
[2022-12-20] MEDS ORDERED: ACETAMINOPHEN 1000 MG/100 ML BAG IVPB ONE (14:54)
[2022-12-20] MEDS ORDERED: ACETAMINOPHEN INJECTION 100 ML IVPB ONE (15:15)
[2022-12-20 15:54] LABS: BASO % 0.4 % (0-2.0); EOS % 2.9 % (0-4.5); HEMATOCRIT 33.7 % (32.4-45.2); MCH 20.9 pg (25.7-33.7); MCHC 32.5 g/dl (32.0-36.0); MEAN CELL VOLUME 64.3 fl (80-96); MEAN PLT VOLUME 8.2 fl (7.5-11.1); MONO % 5.8 % (3.8-10.2); NEUT % 73.9 % (42.8-82.8); PLATELET COUNT 311 10^3/uL (134-434); RBC 5.25 M/mm3 (3.60-5.2); RDW 17.6 % (11.6-15.6); WHITE BLOOD COUNT 8.3 K/mm3 (4.0-10.0)
[2022-12-20 16:01] LABS: INR 1.04 (0.83-1.09); PROTHROMBIN TIME (PATIENT) 12.1 SEC (9.7-13.0)
[2022-12-20 16:03] LABS: ACTIVATED PTT 31.5 SECONDS (25.2-36.5)
[2022-12-20 16:20] LABS: CALCIUM 8.1 mg/dL (8.5-10.1)
[2022-12-20 16:21] LABS: BLOOD UREA NITROGEN 14.6 mg/dL (7-18)
[2022-12-20 16:25] LABS: BILIRUBIN,TOTAL 0.8 mg/dL (0.2-1); TOT PROT 6.2 g/dl (6.4-8.2)
[2022-12-20 16:39] LABS: ANISOCYTOSIS 2+; MACROCYTOSIS 0; OVALOCYTE 1+
[2022-12-20 19:08] VITALS: BP 132/59; PULSE 72
[2022-12-20 19:25] LABS: CALCIUM 8.4 mg/dL (8.5-10.1)
[2022-12-20 19:26] LABS: BLOOD UREA NITROGEN 14.1 mg/dL (7-18)
== END 2022-12-20 19:43 ==
LOC: JER 14:03
PROC: 3E033NZ Introduction of Analgesics, Hypnotics, Sedatives into Peripheral Vein, Percutaneous Approach (ICD-10-PCS; principal; 2022-12-20)
DX: R07.89 Other chest pain (principal); Z20.822 Contact with and (suspected) exposure to COVID-19
CPT/HCPCS: 0241U-QW; 36415; 71045-TC-FY; 71275-TC; 74174-TC; 76705-TC; 80048; 80053; 83605; 83690; 83880; 84484; 85025; 85610; 85730; 99285-25

== ENCOUNTER 2022-12-30 14:27 | Inpatient (IN) | payer OTHER ==
[2022-12-30] MEDS ORDERED: DEXAMETHASONE SOD PHOSPHATE 10 MG/1 ML VIAL IVPUSH ONE (15:10)
[2022-12-30] MEDS ORDERED: ALBUTEROL SO4 2.5/IPRATROPIUM 0.5 INH SOL 3 ML VIAL.NEB. NEB ONE (15:29)
[2022-12-30] MEDS ORDERED: DEXAMETHASONE SOD PHOSPHATE 10 MG/1 ML VIAL ONE (15:29)
[2022-12-30 15:41] LABS: BASO % 0.5 % (0-2.0); EOS % 2.2 % (0-4.5); HEMATOCRIT 34.9 % (32.4-45.2); HEMOGLOBIN 11.3 GM/dL (10.7-15.3); LYMPH % 27.6 % (8-40); MCH 20.9 pg (25.7-33.7); MCHC 32.4 g/dl (32.0-36.0); MEAN CELL VOLUME 64.6 fl (80-96); MEAN PLT VOLUME 8.4 fl (7.5-11.1); MONO % 10.7 % (3.8-10.2); PLATELET COUNT 259 10^3/uL (134-434); RDW 17.7 % (11.6-15.6); WHITE BLOOD COUNT 5.7 K/mm3 (4.0-10.0)
[2022-12-30] MEDS: ALBUTEROL SO4 2.5/IPRATROPIUM 0.5 INH SOL 3 ML VIAL.NEB. NEB SCH ×4 (15:45→17:21)
[2022-12-30 15:49] LABS: INR 1.05 (0.83-1.09); PROTHROMBIN TIME (PATIENT) 12.2 SEC (9.7-13.0)
[2022-12-30 15:51] LABS: VENOUS O2 SATURATION 35.9 % (70-80); VENOUS PCO2 47.4 mmHg (38-52); VENOUS PH 7.383 (7.310-7.410)
[2022-12-30 16:09] LABS: ALBUMIN 3.2 g/dl (3.4-5.0); BLOOD UREA NITROGEN 10.6 mg/dL (7-18); CALCIUM 8.3 mg/dL (8.5-10.1)
[2022-12-30 16:14] LABS: BILIRUBIN,TOTAL 0.2 mg/dL (0.2-1); TOT PROT 6.7 g/dl (6.4-8.2)
[2022-12-30 16:27] LABS: ANISOCYTOSIS 2+; MACROCYTOSIS 0; OVALOCYTE 1+; TEAR DROP CELLS 1+
[2022-12-30] MEDS ORDERED: ALBUTEROL SULFATE 0.021% (0.63 MG/3 ML) VIAL.NEB NEB ONE (17:12)
[2022-12-30] MEDS ORDERED: MAGNESIUM SULF 50% (8.12 MEQ/2 ML-1 GM VIAL) IVPB ONE (17:12)
[2022-12-30] MEDS ORDERED: ALBUTEROL SO4 0.083% IH SOL 2.5 MG/3 ML VIAL.NEB. NEB ONE (17:27)
[2022-12-30] MEDS ORDERED: MAGNESIUM SULFATE IN WATER 2 GM/50 ML IVPB IVPB ONE (17:27)
[2022-12-30] MEDS ORDERED: AZITHROMYCIN 500 MG TABLET PO ONE (17:55)
[2022-12-30] MEDS ORDERED: CEFTRIAXONE 1,000 MG in DEXTROSE 5%-WATER - 50 ML IVPB ONE (17:55)
[2022-12-30] MEDS ORDERED: AZITHROMYCIN 250 MG TABLET ONE (18:08)
[2022-12-30] MEDS ORDERED: CEFTRIAXONE 1 GM/50 ML BAG ONE (18:09)
[2022-12-30] MEDS ORDERED: ALBUTEROL SO4 HFA INHALER IH PRN (18:18)
[2022-12-30] MEDS ORDERED: HEPARIN NA (PORCINE) 5,000 UNITS/ML 1ML VIAL ONE (22:07)
[2022-12-30] MEDS ORDERED: MIRTAZAPINE 15 MG TABLET (FP) ONE (22:09)
[2022-12-30] MEDS ORDERED: ATORVASTATIN CA 20 MG TABLET (FP) ONE (22:09)
[2022-12-30] MEDS ORDERED: INSULIN (LEVEMIR) 100 UNITS/ML UNITS SQ ONE (22:12)
[2022-12-30] MEDS ORDERED: DONEPEZIL HCL 5 MG TABLET (FP) ONE (22:18)
[2022-12-30] MEDS: HEPARIN NA (PORCINE) 5,000 UNITS/ML 1ML VIAL SQ SCH (22:32)
[2022-12-30] MEDS: DONEPEZIL HCL 5 MG TABLET (FP) PO SCH (22:32)
[2022-12-30] MEDS: INSULIN (LEVEMIR) 100 UNITS/ML UNITS SQ SCH (22:32)
[2022-12-30] MEDS: ATORVASTATIN CA 20 MG TABLET (FP) PO SCH (22:33)
[2022-12-30] MEDS: BUDESONIDE/FORMETEROL FUMARATE 80/4.5 mcg INHALER IH SCH (23:04)
[2022-12-30] MEDS: MEMANTINE HCL 5 MG TABLET (UD) PO SCH (23:04)
[2022-12-30] MEDS: MIRTAZAPINE 15 MG TABLET (FP) PO SCH (23:05)
[2022-12-31] MEDS ORDERED: methylPREDNISolone NA SUCC 40 MG/1 ML VIAL ONE ×3 (02:23→18:27)
[2022-12-31] MEDS: methylPREDNISolone NA SUCC 40 MG/1 ML VIAL IVPUSH SCH ×3 (02:33→18:54)
[2022-12-31] MEDS: INSULIN SLIDING SCALE (NOVOLOG) 1 VIAL SQ SCH ×4 (07:40→18:04)
[2022-12-31 07:44] LABS: BASO % 0.3 % (0-2.0); EOS % 0.1 % (0-4.5); HEMATOCRIT 33.7 % (32.4-45.2); HEMOGLOBIN 11.1 GM/dL (10.7-15.3); LYMPH % 18.9 % (8-40); MCH 21.1 pg (25.7-33.7); MEAN CELL VOLUME 63.8 fl (80-96); MEAN PLT VOLUME 8.6 fl (7.5-11.1); MONO % 5.1 % (3.8-10.2); NEUT % 75.6 % (42.8-82.8); PLATELET COUNT 267 10^3/uL (134-434); RBC 5.27 M/mm3 (3.60-5.2); RDW 17.5 % (11.6-15.6)
[2022-12-31 08:56] LABS: CALCIUM 8.9 mg/dL (8.5-10.1)
[2022-12-31 08:57] LABS: BLOOD UREA NITROGEN 11.8 mg/dL (7-18)
[2022-12-31 09:00] LABS: CREATININE 0.9 mg/dL (0.55-1.3)
[2022-12-31] MEDS ORDERED: busPIRone HCL 5 MG TABLET ONE (11:04)
[2022-12-31] MEDS ORDERED: ASPIRIN 81 MG CHEWABLE TABLETS ONE (11:05)
[2022-12-31] MEDS ORDERED: FERROUS SO4 325 MG TABLET (FP) ONE (11:05)
[2022-12-31] MEDS ORDERED: amLODIPine BESYLATE 10 MG TABLET (FP) ONE (11:05)
[2022-12-31] MEDS ORDERED: DONEPEZIL HCL 5 MG TABLET (FP) ONE (11:05)
[2022-12-31] MEDS ORDERED: HEPARIN NA (PORCINE) 5,000 UNITS/ML 1ML VIAL ONE (11:06)
[2022-12-31] MEDS ORDERED: AZITHROMYCIN IVPB 500 MG/250 ML BAG IVPB ONE (11:07)
[2022-12-31] MEDS: BUDESONIDE/FORMETEROL FUMARATE 80/4.5 mcg INHALER IH SCH (12:00)
[2022-12-31] MEDS: ASPIRIN 81 MG CHEWABLE TABLETS PO SCH (12:00)
[2022-12-31] MEDS: busPIRone HCL 10 MG TABLET (FP) PO SCH (12:00)
[2022-12-31] MEDS: FERROUS SO4 325 MG TABLET (FP) PO SCH (12:00)
[2022-12-31] MEDS: PANTOPRAZOLE 20 MG TABLET PO SCH (12:00)
[2022-12-31] MEDS: amLODIPine BESYLATE 10 MG TABLET (FP) PO SCH (12:00)
[2022-12-31] MEDS: DONEPEZIL HCL 5 MG TABLET (FP) PO SCH ×2 (12:00→22:51)
[2022-12-31] MEDS: HEPARIN NA (PORCINE) 5,000 UNITS/ML 1ML VIAL SQ SCH ×2 (12:00→22:51)
[2022-12-31] MEDS ORDERED: PANTOPRAZOLE 20 MG TABLET PO ONE (12:03)
[2022-12-31] MEDS: AZITHROMYCIN IVPB 500 MG/250 ML BAG IVPB SCH (13:00)
[2022-12-31] MEDS ORDERED: ALBUTEROL SO4 2.5/IPRATROPIUM 0.5 INH SOL 3 ML VIAL.NEB. NEB ONE (13:05)
[2022-12-31] MEDS: ALBUTEROL SO4 2.5/IPRATROPIUM 0.5 INH SOL 3 ML VIAL.NEB. NEB PRN (13:07)
[2022-12-31] MEDS ORDERED: LISINOPRIL 20 MG TABLET ONE (18:07)
[2022-12-31] MEDS: MEMANTINE HCL 5 MG TABLET (UD) PO SCH ×2 (18:26→22:51)
[2022-12-31] MEDS: LISINOPRIL 10 MG TABLET PO SCH (18:26)
[2022-12-31] MEDS: INSULIN (LEVEMIR) 100 UNITS/ML UNITS SQ SCH (22:45)
[2022-12-31] MEDS: MIRTAZAPINE 15 MG TABLET (FP) PO SCH (22:51)
[2022-12-31] MEDS: ATORVASTATIN CA 20 MG TABLET (FP) PO SCH (22:51)
[2023-01-01 00:31] VITALS: BMI 29.2
[2023-01-01] MEDS: BUDESONIDE/FORMETEROL FUMARATE 80/4.5 mcg INHALER IH SCH ×2 (02:12→12:56)
[2023-01-01] MEDS ORDERED: INSULIN (NOVOLOG) ASPART 100 UNITS/ML 10ML VIAL ONE ×3 (06:15→17:38)
[2023-01-01] MEDS: INSULIN SLIDING SCALE (NOVOLOG) 1 VIAL SQ SCH ×3 (06:16→17:53)
[2023-01-01 08:02] LABS: BASO % 0.1 % (0-2.0); LYMPH % 11.9 % (8-40); MCH 21.2 pg (25.7-33.7); MCHC 33.3 g/dl (32.0-36.0); MEAN CELL VOLUME 63.7 fl (80-96); MEAN PLT VOLUME 8.9 fl (7.5-11.1); MONO % 5.2 % (3.8-10.2); NEUT % 82.8 % (42.8-82.8); PLATELET COUNT 287 10^3/uL (134-434); RBC 4.72 M/mm3 (3.60-5.2); RDW 17.5 % (11.6-15.6); WHITE BLOOD COUNT 8.9 K/mm3 (4.0-10.0)
[2023-01-01 08:24] LABS: CALCIUM 8.6 mg/dL (8.5-10.1)
[2023-01-01 08:25] LABS: BLOOD UREA NITROGEN 20.7 mg/dL (7-18)
[2023-01-01] MEDS: amLODIPine BESYLATE 10 MG TABLET (FP) PO SCH (09:33)
[2023-01-01] MEDS: FERROUS SO4 325 MG TABLET (FP) PO SCH (09:33)
[2023-01-01] MEDS: HEPARIN NA (PORCINE) 5,000 UNITS/ML 1ML VIAL SQ SCH ×2 (09:33→22:06)
[2023-01-01] MEDS: ASPIRIN 81 MG CHEWABLE TABLETS PO SCH (09:33)
[2023-01-01] MEDS: DONEPEZIL HCL 5 MG TABLET (FP) PO SCH ×2 (09:33→22:06)
[2023-01-01] MEDS: PANTOPRAZOLE 20 MG TABLET PO SCH (09:33)
[2023-01-01] MEDS: LISINOPRIL 10 MG TABLET PO SCH (09:33)
[2023-01-01] MEDS: MEMANTINE HCL 5 MG TABLET (UD) PO SCH ×2 (09:33→22:06)
[2023-01-01] MEDS: AZITHROMYCIN IVPB 500 MG/250 ML BAG IVPB SCH (09:34)
[2023-01-01] MEDS: ALBUTEROL SO4 2.5/IPRATROPIUM 0.5 INH SOL 3 ML VIAL.NEB. NEB PRN ×2 (10:00→21:10)
[2023-01-01] MEDS ORDERED: predniSONE 20 MG TABLET (UD) PO SCH (10:00)
[2023-01-01] MEDS: busPIRone HCL 10 MG TABLET (FP) PO SCH (12:56)
[2023-01-01] MEDS: methylPREDNISolone NA SUCC 40 MG/1 ML VIAL IVPUSH SCH ×2 (13:29→17:53)
[2023-01-01] MEDS: FLUTICASONE/UMECLIDIN/VILANTER(200-62.5-25 TRELEGY ELLIPTA) INAHLER IH SCH (17:54)
[2023-01-01] MEDS: ATORVASTATIN CA 20 MG TABLET (FP) PO SCH (22:06)
[2023-01-01] MEDS: MIRTAZAPINE 15 MG TABLET (FP) PO SCH (22:06)
[2023-01-01] MEDS: INSULIN (LEVEMIR) 100 UNITS/ML UNITS SQ SCH (22:30)
[2023-01-02] MEDS: methylPREDNISolone NA SUCC 40 MG/1 ML VIAL IVPUSH SCH ×3 (01:30→17:28)
[2023-01-02] MEDS ORDERED: INSULIN (NOVOLOG) ASPART 100 UNITS/ML 10ML VIAL ONE (06:55)
[2023-01-02] MEDS: INSULIN SLIDING SCALE (NOVOLOG) 1 VIAL SQ SCH ×3 (06:59→17:29)
[2023-01-02] MEDS: DONEPEZIL HCL 5 MG TABLET (FP) PO SCH ×2 (10:18→21:27)
[2023-01-02] MEDS: LISINOPRIL 10 MG TABLET PO SCH (10:19)
[2023-01-02] MEDS: ASPIRIN 81 MG CHEWABLE TABLETS PO SCH (10:19)
[2023-01-02] MEDS: FERROUS SO4 325 MG TABLET (FP) PO SCH (10:19)
[2023-01-02] MEDS: busPIRone HCL 10 MG TABLET (FP) PO SCH (10:19)
[2023-01-02] MEDS: HEPARIN NA (PORCINE) 5,000 UNITS/ML 1ML VIAL SQ SCH ×2 (10:19→21:27)
[2023-01-02] MEDS: PANTOPRAZOLE 20 MG TABLET PO SCH (10:19)
[2023-01-02] MEDS: MEMANTINE HCL 5 MG TABLET (UD) PO SCH ×2 (10:20→21:27)
[2023-01-02] MEDS: AZITHROMYCIN IVPB 500 MG/250 ML BAG IVPB SCH (10:20)
[2023-01-02] MEDS: amLODIPine BESYLATE 10 MG TABLET (FP) PO SCH (10:24)
[2023-01-02] MEDS: FLUTICASONE/UMECLIDIN/VILANTER(200-62.5-25 TRELEGY ELLIPTA) INAHLER IH SCH (15:23)
[2023-01-02] MEDS: ATORVASTATIN CA 20 MG TABLET (FP) PO SCH (21:27)
[2023-01-02] MEDS: MIRTAZAPINE 15 MG TABLET (FP) PO SCH (21:27)
[2023-01-02] MEDS: INSULIN (LEVEMIR) 100 UNITS/ML UNITS SQ SCH (22:11)
[2023-01-03] MEDS: methylPREDNISolone NA SUCC 40 MG/1 ML VIAL IVPUSH SCH ×2 (01:21→09:54)
[2023-01-03] MEDS ORDERED: INSULIN (NOVOLOG) ASPART 100 UNITS/ML 10ML VIAL ONE ×3 (06:16→11:57)
[2023-01-03] MEDS: INSULIN SLIDING SCALE (NOVOLOG) 1 VIAL SQ SCH ×3 (06:16→17:42)
[2023-01-03 07:41] LABS: BASO % 0.1 % (0-2.0); HEMATOCRIT 31.5 % (32.4-45.2); HEMOGLOBIN 10.5 GM/dL (10.7-15.3); LYMPH % 10.2 % (8-40); MCH 21.2 pg (25.7-33.7); MCHC 33.4 g/dl (32.0-36.0); MEAN CELL VOLUME 63.5 fl (80-96); MEAN PLT VOLUME 8.7 fl (7.5-11.1); MONO % 2.5 % (3.8-10.2); NEUT % 87.2 % (42.8-82.8); PLATELET COUNT 340 10^3/uL (134-434); RBC 4.96 M/mm3 (3.60-5.2); RDW 17.5 % (11.6-15.6); WHITE BLOOD COUNT 8.1 K/mm3 (4.0-10.0)
[2023-01-03 07:57] LABS: BLOOD UREA NITROGEN 31.2 mg/dL (7-18); CALCIUM 8.1 mg/dL (8.5-10.1)
[2023-01-03 08:01] LABS: CREATININE 1.1 mg/dL (0.55-1.3)
[2023-01-03] MEDS: ALBUTEROL SO4 2.5/IPRATROPIUM 0.5 INH SOL 3 ML VIAL.NEB. NEB PRN ×2 (08:38→14:40)
[2023-01-03 09:09] LABS: ANISOCYTOSIS 3+; MACROCYTOSIS 0
[2023-01-03] MEDS: busPIRone HCL 10 MG TABLET (FP) PO SCH (09:53)
[2023-01-03] MEDS: ASPIRIN 81 MG CHEWABLE TABLETS PO SCH (09:53)
[2023-01-03] MEDS: LISINOPRIL 10 MG TABLET PO SCH (09:53)
[2023-01-03] MEDS: MEMANTINE HCL 5 MG TABLET (UD) PO SCH ×2 (09:53→21:40)
[2023-01-03] MEDS: FERROUS SO4 325 MG TABLET (FP) PO SCH (09:54)
[2023-01-03] MEDS: FLUTICASONE/UMECLIDIN/VILANTER(200-62.5-25 TRELEGY ELLIPTA) INAHLER IH SCH (09:54)
[2023-01-03] MEDS: HEPARIN NA (PORCINE) 5,000 UNITS/ML 1ML VIAL SQ SCH ×2 (09:54→21:40)
[2023-01-03] MEDS: PANTOPRAZOLE 20 MG TABLET PO SCH (09:54)
[2023-01-03] MEDS: DONEPEZIL HCL 5 MG TABLET (FP) PO SCH ×2 (09:54→21:40)
[2023-01-03] MEDS: amLODIPine BESYLATE 10 MG TABLET (FP) PO SCH (09:54)
[2023-01-03] MEDS: AZITHROMYCIN IVPB 500 MG/250 ML BAG IVPB SCH (09:55)
[2023-01-03] MEDS: predniSONE 20 MG TABLET (UD) PO SCH (12:36)
[2023-01-03] MEDS ORDERED: ALBUTEROL SO4 2.5/IPRATROPIUM 0.5 INH SOL 3 ML VIAL.NEB. NEB PRN (16:57)
[2023-01-03] MEDS ORDERED: ALBUTEROL SO4 HFA INHALER IH PRN (16:57)
[2023-01-03] MEDS ORDERED: ATORVASTATIN CA 20 MG TABLET (FP) PO SCH (22:00)
[2023-01-03] MEDS ORDERED: INSULIN (LEVEMIR) 100 UNITS/ML UNITS SQ SCH (22:00)
[2023-01-03] MEDS ORDERED: MIRTAZAPINE 15 MG TABLET (FP) PO SCH (22:00)
[2023-01-04] MEDS: INSULIN SLIDING SCALE (NOVOLOG) 1 VIAL SQ SCH ×3 (06:27→17:18)
[2023-01-04] MEDS ORDERED: ASPIRIN 81 MG CHEWABLE TABLETS PO SCH (10:00)
[2023-01-04] MEDS ORDERED: PANTOPRAZOLE 20 MG TABLET PO SCH (10:00)
[2023-01-04] MEDS ORDERED: FLUTICASONE/UMECLIDIN/VILANTER(200-62.5-25 TRELEGY ELLIPTA) INAHLER IH SCH (10:00)
[2023-01-04] MEDS ORDERED: LISINOPRIL 20 MG TABLET PO SCH (10:00)
[2023-01-04] MEDS ORDERED: FERROUS SO4 325 MG TABLET (FP) PO SCH (10:00)
[2023-01-04] MEDS ORDERED: busPIRone HCL 10 MG TABLET (FP) PO SCH (10:00)
[2023-01-04] MEDS ORDERED: LISINOPRIL 10 MG TABLET PO SCH (10:00)
[2023-01-04] MEDS ORDERED: AZITHROMYCIN 500 MG TABLET PO SCH (10:00)
[2023-01-04] MEDS ORDERED: amLODIPine BESYLATE 10 MG TABLET (FP) PO SCH (10:00)
[2023-01-04] MEDS: DONEPEZIL HCL 5 MG TABLET (FP) PO SCH (10:05)
[2023-01-04] MEDS: predniSONE 20 MG TABLET (UD) PO SCH (10:05)
[2023-01-04] MEDS: HEPARIN NA (PORCINE) 5,000 UNITS/ML 1ML VIAL SQ SCH (10:06)
[2023-01-04] MEDS: MEMANTINE HCL 5 MG TABLET (UD) PO SCH (10:06)
[2023-01-04 17:26] VITALS: RESP 18; TEMP 98.2
[2023-01-04] MEDS ORDERED: METOPROLOL TARTRATE 25 MG TABLET (FP) PO ONE (17:31)
[2023-01-04 18:41] VITALS: BP 151/61; PULSE 68
== END 2023-01-04 19:33 | disposition home or self-care (01) | DRG 191 ==
LOC: JER 14:27 → INTOOBSV 17:51 → JERBED 17:51 → J4W 12-31 22:06 → OBSVTOIN 01-02 09:22 → J6S 01-03 16:50
PROVIDERS: ADMIT Internal Medicine; ATTEND Internal Medicine
DX: J44.1 Chronic obstructive pulmonary disease with (acute) exacerbation (principal); I50.32 Chronic diastolic (congestive) heart failure; J45.41 Moderate persistent asthma with (acute) exacerbation; E11.9 Type 2 diabetes mellitus without complications; Z95.1 Presence of aortocoronary bypass graft; E78.5 Hyperlipidemia, unspecified; I25.10 Atherosclerotic heart disease of native coronary artery without angina pectoris; I11.0 Hypertensive heart disease with heart failure; Z79.4 Long term (current) use of insulin; D50.9 Iron deficiency anemia, unspecified; Z95.2 Presence of prosthetic heart valve
CPT/HCPCS: 0241U-QW; 36415; 71046-TC-FY; 80048; 80053; 80061; 82803; 82962; 83036; 83880; 84443; 84484; 85025; 85610; 85730; 93005; 93010; 93306-TC; 94640; 94761; 97116-GP; 97162-GP; 99285-25; G0378; J1100; J1644

== ENCOUNTER 2023-02-10 19:08 | Observation (INO) | payer OTHER ==
[2023-02-10] MEDS ORDERED: ASPIRIN 81 MG CHEWABLE TABLETS PO ONE (19:23)
[2023-02-10 20:15] VITALS: BMI 28.3
[2023-02-10] MEDS ORDERED: ASPIRIN 81 MG CHEWABLE TABLETS ONE (20:18)
[2023-02-10 20:48] LABS: BASO % 0.3 % (0-2.0); EOS % 0.5 % (0-4.5); HEMATOCRIT 32.5 % (32.4-45.2); HEMOGLOBIN 10.7 GM/dL (10.7-15.3); LYMPH % 11.6 % (8-40); MCH 21.4 pg (25.7-33.7); MEAN CELL VOLUME 64.9 fl (80-96); MEAN PLT VOLUME 8.3 fl (7.5-11.1); MONO % 6.3 % (3.8-10.2); NEUT % 81.3 % (42.8-82.8); PLATELET COUNT 282 10^3/uL (134-434); RBC 5.01 M/mm3 (3.60-5.2); RDW 18.8 % (11.6-15.6); WHITE BLOOD COUNT 12.6 K/mm3 (4.0-10.0)
[2023-02-10 20:57] LABS: INR 0.98 (0.83-1.09); PROTHROMBIN TIME (PATIENT) 11.4 SEC (9.7-13.0)
[2023-02-10 21:01] LABS: ACTIVATED PTT 31.7 SECONDS (25.2-36.5)
[2023-02-10 21:09] LABS: POTASSIUM 4.4 mmol/L (3.5-5.1)
[2023-02-10 21:11] LABS: CALCIUM 8.5 mg/dL (8.5-10.1)
[2023-02-10 21:12] LABS: ALBUMIN 3.1 g/dl (3.4-5.0); BLOOD UREA NITROGEN 12.6 mg/dL (7-18)
[2023-02-10 21:15] LABS: CREATININE 0.8 mg/dL (0.55-1.3)
[2023-02-10 21:16] LABS: BILIRUBIN,TOTAL 0.4 mg/dL (0.2-1)
[2023-02-10 21:35] LABS: ANISOCYTOSIS 3+; MACROCYTOSIS 0
[2023-02-10 23:18] LABS: EPI CELLS >36 /uL (0-25.1); HYALINE CASTS 0 /uL (0-3.1); PH,URINE 5.5 (5.0-8.0); URINE APPEARANCE CLEAR; URINE BACTERIA 64 /uL (0-1359); URINE BILIRUBIN NEGATIVE (NEGATIVE); URINE COLOR YELLOW; URINE GLUCOSE (UA) NEGATIVE (NEGATIVE); URINE KETONE NEGATIVE (NEGATIVE); URINE LEUK ESTERASE 2+ (NEGATIVE); URINE NITRITE NEGATIVE (NEGATIVE); URINE PROTEIN 2+ (NEGATIVE); URINE UROBILINOGEN 0.2 mg/dL (0.2-1.0); URINE WBC 207 /uL (0-25.8)
[2023-02-11] MEDS ORDERED: CEFTRIAXONE 1 GM in DEXTROSE 5%-WATER - 100 ML IVPB ONE (00:36)
[2023-02-11] MEDS ORDERED: CEFTRIAXONE 1 GM/50 ML BAG ONE (00:55)
[2023-02-11] MEDS: INSULIN SLIDING SCALE (NOVOLOG) 1 VIAL SQ SCH ×4 (06:13→22:02)
[2023-02-11] MEDS ORDERED: ALBUTEROL SO4 2.5/IPRATROPIUM 0.5 INH SOL 3 ML VIAL.NEB. NEB PRN (06:21)
[2023-02-11] MEDS ORDERED: busPIRone HCL 10 MG TABLET (FP) PO SCH (06:30)
[2023-02-11] MEDS: PANTOPRAZOLE 20 MG TABLET PO SCH (10:23)
[2023-02-11] MEDS: amLODIPine BESYLATE 10 MG TABLET (FP) PO SCH (10:23)
[2023-02-11] MEDS: MEMANTINE HCL 5 MG TABLET (UD) PO SCH ×2 (10:23→21:56)
[2023-02-11] MEDS: DONEPEZIL HCL 5 MG TABLET (FP) PO SCH ×2 (10:23→21:56)
[2023-02-11 16:47] LABS: N-TERMINAL BNP 1004.6 pg/ml (5-450)
[2023-02-11] MEDS: MIRTAZAPINE 15 MG TABLET (FP) PO SCH (21:56)
[2023-02-11] MEDS: busPIRone HCL 10 MG TABLET (FP) PO SCH (21:56)
[2023-02-11] MEDS: CEFTRIAXONE 1 GM in DEXTROSE 5%-WATER - 50 ML IVPB SCH (21:56)
[2023-02-11] MEDS: ATORVASTATIN CA 20 MG TABLET (FP) PO SCH (21:56)
[2023-02-12] MEDS: INSULIN SLIDING SCALE (NOVOLOG) 1 VIAL SQ SCH ×4 (06:27→21:04)
[2023-02-12 07:44] LABS: BASO % 0.4 % (0-2.0); EOS % 1.3 % (0-4.5); HEMATOCRIT 27.5 % (32.4-45.2); HEMOGLOBIN 9.3 GM/dL (10.7-15.3); LYMPH % 22.6 % (8-40); MEAN CELL VOLUME 64.6 fl (80-96); MEAN PLT VOLUME 8.7 fl (7.5-11.1); MONO % 8.4 % (3.8-10.2); NEUT % 67.3 % (42.8-82.8); PLATELET COUNT 234 10^3/uL (134-434); RBC 4.25 M/mm3 (3.60-5.2); WHITE BLOOD COUNT 8.1 K/mm3 (4.0-10.0)
[2023-02-12 08:11] LABS: POTASSIUM 4.3 mmol/L (3.5-5.1)
[2023-02-12 08:19] LABS: CALCIUM 8.1 mg/dL (8.5-10.1); MAGNESIUM 2.1 mg/dL (1.8-2.4)
[2023-02-12 08:22] VITALS: RESP 18
[2023-02-12 08:22] LABS: PHOSPHOROUS 4.9 mg/dL (2.5-4.9)
[2023-02-12] MEDS: busPIRone HCL 10 MG TABLET (FP) PO SCH ×2 (10:29→21:04)
[2023-02-12] MEDS: PANTOPRAZOLE 20 MG TABLET PO SCH ×2 (10:29→10:35)
[2023-02-12] MEDS: DONEPEZIL HCL 5 MG TABLET (FP) PO SCH ×2 (10:29→21:04)
[2023-02-12] MEDS: amLODIPine BESYLATE 10 MG TABLET (FP) PO SCH (10:29)
[2023-02-12] MEDS: MEMANTINE HCL 5 MG TABLET (UD) PO SCH ×2 (10:29→21:04)
[2023-02-12] MEDS: ATORVASTATIN CA 20 MG TABLET (FP) PO SCH (21:04)
[2023-02-12] MEDS: MIRTAZAPINE 15 MG TABLET (FP) PO SCH (21:04)
[2023-02-12] MEDS: CEFTRIAXONE 1 GM in DEXTROSE 5%-WATER - 50 ML IVPB SCH (21:05)
[2023-02-13 05:47] VITALS: TEMP 98.8
[2023-02-13] MEDS: INSULIN SLIDING SCALE (NOVOLOG) 1 VIAL SQ SCH ×2 (05:59→11:56)
[2023-02-13] MEDS: PANTOPRAZOLE 20 MG TABLET PO SCH (10:22)
[2023-02-13] MEDS: busPIRone HCL 10 MG TABLET (FP) PO SCH (10:22)
[2023-02-13] MEDS: DONEPEZIL HCL 5 MG TABLET (FP) PO SCH (10:23)
[2023-02-13] MEDS: MEMANTINE HCL 5 MG TABLET (UD) PO SCH (10:23)
[2023-02-13] MEDS: amLODIPine BESYLATE 10 MG TABLET (FP) PO SCH (10:23)
[2023-02-13 10:47] VITALS: BP 133/45; PULSE 60
== END 2023-02-13 14:50 ==
LOC: JER 19:08 → JERBED 02-11 00:35 → J4W 02-11 03:17
PROVIDERS: ADMIT Internal Medicine; ATTEND Internal Medicine
DX: N39.0 Urinary tract infection, site not specified (principal); J44.9 Chronic obstructive pulmonary disease, unspecified; R06.02 Shortness of breath
CPT/HCPCS: 0241U-QW; 36415; 71045-TC-FY; 80048; 80053; 81003; 82962; 83690; 83735; 83880; 84100; 84484; 85025; 85379; 85610; 85730; 86850; 86900; 86901; 87086; 87186; 93005; 93010; 94761; 96365; 99285-25; G0378

== ENCOUNTER 2023-02-15 14:55 | Observation (INO) | payer OTHER ==
[2023-02-15] MEDS ORDERED: ONDANSETRON 4 MG/2 ML VIAL IVPUSH ONE (15:39)
[2023-02-15] MEDS ORDERED: ONDANSETRON 4 MG/2 ML VIAL ONE (16:20)
[2023-02-15 16:25] VITALS: BMI 28.3
[2023-02-15 16:51] LABS: BASO % 0.3 % (0-2.0); EOS % 2.2 % (0-4.5); HEMOGLOBIN 9.7 GM/dL (10.7-15.3); LYMPH % 14.7 % (8-40); MCHC 32.2 g/dl (32.0-36.0); MEAN CELL VOLUME 65.3 fl (80-96); MEAN PLT VOLUME 7.9 fl (7.5-11.1); MONO % 5.6 % (3.8-10.2); NEUT % 77.2 % (42.8-82.8); PLATELET COUNT 299 10^3/uL (134-434); RBC 4.59 M/mm3 (3.60-5.2); RDW 19.3 % (11.6-15.6); WHITE BLOOD COUNT 8.9 K/mm3 (4.0-10.0)
[2023-02-15 16:59] LABS: INR 0.96 (0.83-1.09); PROTHROMBIN TIME (PATIENT) 11.1 SEC (9.7-13.0)
[2023-02-15 17:01] LABS: ACTIVATED PTT 30.3 SECONDS (25.2-36.5)
[2023-02-15 17:10] LABS: CALCIUM 8.4 mg/dL (8.5-10.1)
[2023-02-15 17:11] LABS: ALBUMIN 2.8 g/dl (3.4-5.0); BLOOD UREA NITROGEN 13.8 mg/dL (7-18)
[2023-02-15 17:14] LABS: CREATININE 0.9 mg/dL (0.55-1.3)
[2023-02-15 17:15] LABS: BILIRUBIN,TOTAL 0.2 mg/dL (0.2-1); TOT PROT 5.6 g/dl (6.4-8.2)
[2023-02-15] MEDS ORDERED: ACETAMINOPHEN 1000 MG/100 ML BAG IVPB ONE (17:20)
[2023-02-15] MEDS ORDERED: FAMOTIDINE 20 MG/50 ML IVPB 20 MG/50 ML MG IVPB ONE ×2 (17:20→17:24)
[2023-02-15] MEDS ORDERED: ACETAMINOPHEN INJECTION 100 ML IVPB ONE (17:24)
[2023-02-15 17:33] LABS: ANISOCYTOSIS 1+; MACROCYTOSIS 0; PLATELET ESTIMATE NORMAL; ROULEAU 1+
[2023-02-15 17:50] LABS: LACTIC ACID 2.4 mmol/L (0.4-2.0)
[2023-02-16 01:56] LABS: URINE APPEARANCE CLEAR; URINE BILIRUBIN NEGATIVE (NEGATIVE); URINE COLOR YELLOW; URINE GLUCOSE (UA) NEGATIVE (NEGATIVE); URINE KETONE NEGATIVE (NEGATIVE); URINE LEUK ESTERASE NEGATIVE (NEGATIVE); URINE NITRITE NEGATIVE (NEGATIVE); URINE PROTEIN NEGATIVE (NEGATIVE); URINE UROBILINOGEN 0.2 mg/dL (0.2-1.0)
[2023-02-16 08:27] LABS: BASO % 0.2 % (0-2.0); EOS % 3.9 % (0-4.5); HEMATOCRIT 28.5 % (32.4-45.2); HEMOGLOBIN 9.7 GM/dL (10.7-15.3); LYMPH % 25.8 % (8-40); MEAN CELL VOLUME 64.7 fl (80-96); MEAN PLT VOLUME 8.2 fl (7.5-11.1); MONO % 8.3 % (3.8-10.2); NEUT % 61.8 % (42.8-82.8); PLATELET COUNT 269 10^3/uL (134-434); RDW 19.3 % (11.6-15.6); WHITE BLOOD COUNT 6.1 K/mm3 (4.0-10.0)
[2023-02-16 08:49] LABS: POTASSIUM 3.9 mmol/L (3.5-5.1)
[2023-02-16 09:14] LABS: CALCIUM 8.5 mg/dL (8.5-10.1); CREATININE 0.8 mg/dL (0.55-1.3)
[2023-02-16] MEDS ORDERED: ALBUTEROL SO4 2.5/IPRATROPIUM 0.5 INH SOL 3 ML VIAL.NEB. NEB PRN (13:05)
[2023-02-16] MEDS: CEPHALEXIN MONOHYDRATE 500 MG CAPSULE (UD) PO SCH ×2 (15:03→22:04)
[2023-02-16] MEDS: busPIRone HCL 10 MG TABLET (FP) PO SCH ×2 (15:03→22:04)
[2023-02-16] MEDS: METOCLOPRAMIDE HCL 10 MG TABLET (FP) PO SCH (17:08)
[2023-02-16] MEDS: MIRTAZAPINE 15 MG TABLET (FP) PO SCH (22:11)
[2023-02-16] MEDS: MEMANTINE HCL 5 MG TABLET (UD) PO SCH (22:11)
[2023-02-16] MEDS: ATORVASTATIN CA 20 MG TABLET (FP) PO SCH (22:12)
[2023-02-16] MEDS: BUDESONIDE/FORMETEROL FUMARATE 80/4.5 mcg INHALER IH SCH (22:13)
[2023-02-16] MEDS: DONEPEZIL HCL 5 MG TABLET (FP) PO SCH (22:19)
[2023-02-16] MEDS: INSULIN (LEVEMIR) 100 UNITS/ML UNITS SQ SCH (23:06)
[2023-02-17] MEDS: METOCLOPRAMIDE HCL 10 MG TABLET (FP) PO SCH ×3 (06:06→16:56)
[2023-02-17] MEDS: busPIRone HCL 10 MG TABLET (FP) PO SCH ×3 (06:06→22:16)
[2023-02-17] MEDS: CEPHALEXIN MONOHYDRATE 500 MG CAPSULE (UD) PO SCH ×3 (06:06→22:11)
[2023-02-17] MEDS: PANTOPRAZOLE 20 MG TABLET PO SCH (10:13)
[2023-02-17] MEDS: DONEPEZIL HCL 5 MG TABLET (FP) PO SCH ×2 (10:13→22:11)
[2023-02-17] MEDS: MEMANTINE HCL 5 MG TABLET (UD) PO SCH ×2 (10:13→22:11)
[2023-02-17] MEDS: amLODIPine BESYLATE 10 MG TABLET (FP) PO SCH (10:13)
[2023-02-17] MEDS: BUDESONIDE/FORMETEROL FUMARATE 80/4.5 mcg INHALER IH SCH ×2 (10:14→22:14)
[2023-02-17] MEDS: ATORVASTATIN CA 20 MG TABLET (FP) PO SCH (22:11)
[2023-02-17] MEDS: MIRTAZAPINE 15 MG TABLET (FP) PO SCH (22:11)
[2023-02-17] MEDS: INSULIN (LEVEMIR) 100 UNITS/ML UNITS SQ SCH (22:13)
[2023-02-18] MEDS: busPIRone HCL 10 MG TABLET (FP) PO SCH ×2 (06:14→13:10)
[2023-02-18] MEDS: CEPHALEXIN MONOHYDRATE 500 MG CAPSULE (UD) PO SCH ×2 (06:14→13:10)
[2023-02-18] MEDS: METOCLOPRAMIDE HCL 10 MG TABLET (FP) PO SCH ×2 (06:43→10:51)
[2023-02-18 08:32] VITALS: RESP 18
[2023-02-18] MEDS: amLODIPine BESYLATE 10 MG TABLET (FP) PO SCH (09:10)
[2023-02-18] MEDS: PANTOPRAZOLE 20 MG TABLET PO SCH (09:10)
[2023-02-18] MEDS: BUDESONIDE/FORMETEROL FUMARATE 80/4.5 mcg INHALER IH SCH (09:11)
[2023-02-18] MEDS: DONEPEZIL HCL 5 MG TABLET (FP) PO SCH (09:11)
[2023-02-18] MEDS: MEMANTINE HCL 5 MG TABLET (UD) PO SCH (09:11)
[2023-02-18 14:37] VITALS: BP 142/67; PULSE 86; TEMP 98.6
== END 2023-02-18 16:15 ==
LOC: JER 14:55 → JERBED 19:13 → J4W 02-16 02:44
PROVIDERS: ADMIT Internal Medicine; ATTEND Internal Medicine
PROC: 3E033NZ Introduction of Analgesics, Hypnotics, Sedatives into Peripheral Vein, Percutaneous Approach (ICD-10-PCS; principal; 2023-02-15)
PROC: 3E033GC Introduction of Other Therapeutic Substance into Peripheral Vein, Percutaneous Approach (ICD-10-PCS; 2023-02-15)
DX: I25.10 Atherosclerotic heart disease of native coronary artery without angina pectoris (principal); E11.9 Type 2 diabetes mellitus without complications; E78.5 Hyperlipidemia, unspecified; I51.89 Other ill-defined heart diseases; Z95.2 Presence of prosthetic heart valve; R10.13 Epigastric pain
CPT/HCPCS: 0241U-QW; 36415; 71045-TC-FY; 80048; 80053; 81003; 82962; 83605; 83690; 84484; 85025; 85610; 85730; 87086; 93005; 93010; 96365; 96372; 96374; 96375; 99285-25; G0378

== ENCOUNTER 2023-04-30 14:20 | Inpatient (IN) | payer OTHER ==
[2023-04-30 15:31] LABS: BASO % 0.6 % (0-2.0); EOS % 2.3 % (0-4.5); HEMATOCRIT 36.1 % (32.4-45.2); HEMOGLOBIN 11.8 GM/dL (10.7-15.3); LYMPH % 18.3 % (8-40); MCH 22.1 pg (25.7-33.7); MCHC 32.8 g/dl (32.0-36.0); MEAN CELL VOLUME 67.4 fl (80-96); MEAN PLT VOLUME 8.5 fl (7.5-11.1); NEUT % 72.8 % (42.8-82.8); PLATELET COUNT 321 10^3/uL (134-434); RBC 5.35 M/mm3 (3.60-5.2); RDW 16.2 % (11.6-15.6); WHITE BLOOD COUNT 8.2 K/mm3 (4.0-10.0)
[2023-04-30 15:32] LABS: VENOUS BASE EXCESS 0.6 mmol/L (-2-2); VENOUS O2 SATURATION 51.8 % (70-80); VENOUS PCO2 49.7 mmHg (38-52); VENOUS PH 7.35 (7.310-7.410)
[2023-04-30 15:42] LABS: EPI CELLS 6 /uL (0-25.1); HYALINE CASTS 0 /uL (0-3.1); PH,URINE 7.5 (5.0-8.0); URINE APPEARANCE CLEAR; URINE BACTERIA >9,000 /uL (0-1359); URINE BILIRUBIN NEGATIVE (NEGATIVE); URINE COLOR YELLOW; URINE GLUCOSE (UA) TRACE (NEGATIVE); URINE KETONE NEGATIVE (NEGATIVE); URINE LEUK ESTERASE 2+ (NEGATIVE); URINE NITRITE NEGATIVE (NEGATIVE); URINE PROTEIN 1+ (NEGATIVE); URINE RBC 32 /uL (0-23.9); URINE UROBILINOGEN 0.2 mg/dL (0.2-1.0); URINE WBC 377 /uL (0-25.8)
[2023-04-30 15:46] LABS: INR 0.99 (0.83-1.09); PROTHROMBIN TIME (PATIENT) 11.5 SEC (9.7-13.0)
[2023-04-30 15:49] LABS: ACTIVATED PTT 29.7 SECONDS (25.2-36.5)
[2023-04-30 16:00] LABS: CALCIUM 8.2 mg/dL (8.5-10.1)
[2023-04-30 16:01] LABS: ALBUMIN 3.5 g/dl (3.4-5.0); BLOOD UREA NITROGEN 13.7 mg/dL (7-18)
[2023-04-30 16:04] LABS: CREATININE 1.1 mg/dL (0.55-1.3)
[2023-04-30 16:05] LABS: BILIRUBIN,TOTAL 0.2 mg/dL (0.2-1); TOT PROT 6.8 g/dl (6.4-8.2)
[2023-04-30 16:09] LABS: N-TERMINAL BNP 869.6 pg/ml (5-450)
[2023-04-30] MEDS ORDERED: CEFTRIAXONE 1 GM in DEXTROSE 5%-WATER - 100 ML IVPB ONE (16:09)
[2023-04-30] MEDS ORDERED: CEFTRIAXONE 1 GM/50 ML BAG ONE (16:36)
[2023-04-30 23:23] VITALS: BMI 30.5
[2023-05-01 08:52] LABS: BASO % 0.6 % (0-2.0); EOS % 1.9 % (0-4.5); HEMATOCRIT 33.9 % (32.4-45.2); HEMOGLOBIN 10.7 GM/dL (10.7-15.3); LYMPH % 19.7 % (8-40); MCH 21.7 pg (25.7-33.7); MCHC 31.6 g/dl (32.0-36.0); MEAN CELL VOLUME 68.5 fl (80-96); MEAN PLT VOLUME 8.8 fl (7.5-11.1); MONO % 5.5 % (3.8-10.2); NEUT % 72.3 % (42.8-82.8); PLATELET COUNT 295 10^3/uL (134-434); RBC 4.94 M/mm3 (3.60-5.2); RDW 16.2 % (11.6-15.6)
[2023-05-01] MEDS ORDERED: ALBUTEROL SO4 2.5/IPRATROPIUM 0.5 INH SOL 3 ML VIAL.NEB. NEB PRN (09:05)
[2023-05-01] MEDS ORDERED: MAG HYDROX/AL HYDROX/SIMETH -MYLANTA- ORAL SUSPENSION PO PRN (09:05)
[2023-05-01] MEDS ORDERED: ALBUTEROL SO4 HFA INHALER IH PRN (09:05)
[2023-05-01] MEDS ORDERED: busPIRone HCL 10 MG TABLET (FP) PO SCH (09:15)
[2023-05-01 09:17] LABS: POTASSIUM 4.3 mmol/L (3.5-5.1)
[2023-05-01 09:21] LABS: BLOOD UREA NITROGEN 12.9 mg/dL (7-18)
[2023-05-01 09:22] LABS: CALCIUM 8.5 mg/dL (8.5-10.1)
[2023-05-01 09:24] LABS: CREATININE 0.9 mg/dL (0.55-1.3)
[2023-05-01 09:57] LABS: ANISOCYTOSIS 2+; MACROCYTOSIS 0
[2023-05-01] MEDS: CEFTRIAXONE 1 GM in DEXTROSE 5%-WATER - 50 ML IVPB SCH (10:42)
[2023-05-01] MEDS: amLODIPine BESYLATE 10 MG TABLET (FP) PO SCH (10:43)
[2023-05-01] MEDS: MEMANTINE HCL 5 MG TABLET (UD) PO SCH ×2 (10:43→21:47)
[2023-05-01] MEDS: FERROUS SO4 325 MG TABLET (FP) PO SCH (10:43)
[2023-05-01] MEDS: PANTOPRAZOLE 40 MG TABLET PO SCH (10:43)
[2023-05-01] MEDS: ASPIRIN 81 MG CHEWABLE TABLETS PO SCH (10:43)
[2023-05-01] MEDS: DONEPEZIL HCL 5 MG TABLET (FP) PO SCH ×2 (10:44→21:47)
[2023-05-01] MEDS ORDERED: INSULIN (NOVOLOG) ASPART 100 UNITS/ML 10ML VIAL ONE (12:18)
[2023-05-01] MEDS: INSULIN SLIDING SCALE (NOVOLOG) 1 VIAL SQ SCH ×2 (12:21→17:36)
[2023-05-01] MEDS ORDERED: MIRTAZAPINE 15 MG TABLET (FP) PO SCH (22:00)
[2023-05-01] MEDS ORDERED: INSULIN (LEVEMIR) 100 UNITS/ML UNITS SQ SCH (22:00)
[2023-05-01] MEDS ORDERED: ATORVASTATIN CA 20 MG TABLET (FP) PO SCH (22:00)
[2023-05-01] MEDS: busPIRone HCL 10 MG TABLET (FP) PO SCH (23:19)
[2023-05-02] MEDS: busPIRone HCL 10 MG TABLET (FP) PO SCH ×3 (05:43→21:50)
[2023-05-02] MEDS: INSULIN SLIDING SCALE (NOVOLOG) 1 VIAL SQ SCH ×3 (06:21→15:48)
[2023-05-02 09:35] LABS: HEMATOCRIT 36.8 % (32.4-45.2); HEMOGLOBIN 11.6 GM/dL (10.7-15.3); MCH 21.7 pg (25.7-33.7); MCHC 31.6 g/dl (32.0-36.0); MEAN CELL VOLUME 68.6 fl (80-96); MEAN PLT VOLUME 9.1 fl (7.5-11.1); PLATELET COUNT 318 10^3/uL (134-434); RBC 5.37 M/mm3 (3.60-5.2)
[2023-05-02 09:36] LABS: WHITE BLOOD COUNT 14.3 K/mm3 (4.0-10.0)
[2023-05-02 09:45] LABS: POTASSIUM 3.9 mmol/L (3.5-5.1)
[2023-05-02] MEDS: FERROUS SO4 325 MG TABLET (FP) PO SCH (09:54)
[2023-05-02] MEDS: MEMANTINE HCL 5 MG TABLET (UD) PO SCH ×2 (09:54→21:51)
[2023-05-02] MEDS: ASPIRIN 81 MG CHEWABLE TABLETS PO SCH (09:54)
[2023-05-02] MEDS: amLODIPine BESYLATE 10 MG TABLET (FP) PO SCH (09:54)
[2023-05-02] MEDS: CEFTRIAXONE 1 GM in DEXTROSE 5%-WATER - 50 ML IVPB SCH (09:54)
[2023-05-02] MEDS: DONEPEZIL HCL 5 MG TABLET (FP) PO SCH (09:54)
[2023-05-02] MEDS: PANTOPRAZOLE 40 MG TABLET PO SCH (09:54)
[2023-05-02 09:59] LABS: CALCIUM 8.8 mg/dL (8.5-10.1)
[2023-05-02 10:02] LABS: CREATININE 1.1 mg/dL (0.55-1.3)
[2023-05-02 10:34] LABS: ANISOCYTOSIS 0; HELMET CELLS 0; HOWELL-JOLLY BODIES 0; MACROCYTOSIS 0; OVALOCYTE 0; ROULEAU 0; SICKELED CELLS 0; TARGET CELLS 0; TEAR DROP CELLS 0; TOXIC GRANULATION 0
[2023-05-02] MEDS ORDERED: INSULIN (NOVOLOG) ASPART 100 UNITS/ML 10ML VIAL ONE (10:49)
[2023-05-02] MEDS ORDERED: ALBUTEROL SO4 2.5/IPRATROPIUM 0.5 INH SOL 3 ML VIAL.NEB. NEB PRN (17:03)
[2023-05-02] MEDS ORDERED: ALBUTEROL SO4 HFA INHALER IH PRN (17:03)
[2023-05-02] MEDS ORDERED: MAG HYDROX/AL HYDROX/SIMETH 30 ML UNIT-DOSE CUP PO PRN (17:03)
[2023-05-02] MEDS: LISINOPRIL 5 MG TABLET PO SCH (18:07)
[2023-05-02] MEDS ORDERED: INSULIN (LEVEMIR) 100 UNITS/ML UNITS SQ SCH (22:00)
[2023-05-02] MEDS ORDERED: MIRTAZAPINE 15 MG TABLET (FP) PO SCH (22:00)
[2023-05-02] MEDS ORDERED: ATORVASTATIN CA 20 MG TABLET (FP) PO SCH (22:00)
[2023-05-02] MEDS ORDERED: DONEPEZIL HCL 10 MG TABLET (FP) PO SCH (22:00)
[2023-05-03] MEDS: busPIRone HCL 10 MG TABLET (FP) PO SCH ×2 (05:28→13:52)
[2023-05-03] MEDS ORDERED: INSULIN (NOVOLOG) ASPART 100 UNITS/ML 10ML VIAL ONE (06:29)
[2023-05-03] MEDS: INSULIN SLIDING SCALE (NOVOLOG) 1 VIAL SQ SCH ×2 (06:35→12:22)
[2023-05-03] MEDS ORDERED: CEFTRIAXONE 1 GM in DEXTROSE 5%-WATER - 50 ML IVPB SCH (10:00)
[2023-05-03] MEDS ORDERED: FERROUS SO4 325 MG TABLET (FP) PO SCH (10:00)
[2023-05-03] MEDS ORDERED: PANTOPRAZOLE 40 MG TABLET PO SCH (10:00)
[2023-05-03] MEDS ORDERED: amLODIPine BESYLATE 10 MG TABLET (FP) PO SCH (10:00)
[2023-05-03] MEDS ORDERED: ASPIRIN 81 MG CHEWABLE TABLETS PO SCH (10:00)
[2023-05-03] MEDS: LISINOPRIL 5 MG TABLET PO SCH (10:03)
[2023-05-03] MEDS: MEMANTINE HCL 5 MG TABLET (UD) PO SCH (10:04)
[2023-05-03 10:05] VITALS: TEMP 98.2
[2023-05-03 10:45] LABS: BASO % 0.3 % (0-2.0); EOS % 0.4 % (0-4.5); HEMATOCRIT 34.7 % (32.4-45.2); HEMOGLOBIN 10.7 GM/dL (10.7-15.3); LYMPH % 16.2 % (8-40); MCH 21.1 pg (25.7-33.7); MCHC 30.9 g/dl (32.0-36.0); MEAN CELL VOLUME 68.2 fl (80-96); MEAN PLT VOLUME 8.8 fl (7.5-11.1); MONO % 4.4 % (3.8-10.2); NEUT % 78.7 % (42.8-82.8); PLATELET COUNT 296 10^3/uL (134-434); RBC 5.09 M/mm3 (3.60-5.2); RDW 15.5 % (11.6-15.6); WHITE BLOOD COUNT 8.3 K/mm3 (4.0-10.0)
[2023-05-03 11:07] LABS: BLOOD UREA NITROGEN 22.7 mg/dL (7-18)
[2023-05-03 11:08] LABS: ALBUMIN 3.1 g/dl (3.4-5.0); CALCIUM 8.6 mg/dL (8.5-10.1); CREATININE 1.1 mg/dL (0.55-1.3)
[2023-05-03 11:09] LABS: BILIRUBIN,TOTAL 0.3 mg/dL (0.2-1); TOT PROT 5.8 g/dl (6.4-8.2)
[2023-05-03 15:45] VITALS: BP 148/65; PULSE 64; RESP 18
[2023-05-04] MEDS ORDERED: CEFUROXIME AXETIL 500 MG TABLET PO SCH (10:00)
== END 2023-05-03 16:31 | disposition home health service (06) | DRG 690 ==
LOC: JER 14:20 → JERBED 17:05 → INTOOBSV 17:05 → J4W 22:59 → OBSVTOIN 05-02 14:02 → J8W 05-02 16:39
PROVIDERS: ADMIT Internal Medicine; ATTEND Internal Medicine
DX: N39.0 Urinary tract infection, site not specified (principal); I13.0 Hypertensive heart and chronic kidney disease with heart failure and stage 1 through stage 4 chronic kidney disease, or unspecified chronic kidney disease; I50.32 Chronic diastolic (congestive) heart failure; J44.9 Chronic obstructive pulmonary disease, unspecified; I25.10 Atherosclerotic heart disease of native coronary artery without angina pectoris; F02.80 Dementia in other diseases classified elsewhere, unspecified severity, without behavioral disturbance, psychotic disturbance, mood disturbance, and anxiety; G30.9 Alzheimer's disease, unspecified; J45.909 Unspecified asthma, uncomplicated; E11.22 Type 2 diabetes mellitus with diabetic chronic kidney disease; N18.9 Chronic kidney disease, unspecified; E78.5 Hyperlipidemia, unspecified; Z95.5 Presence of coronary angioplasty implant and graft
CPT/HCPCS: 0241U-QW; 36415; 71045-TC-FY; 74177-TC; 80048; 80053; 81003; 82010; 82803; 82962; 83036; 83605; 83690; 83880; 84439; 84443; 84484; 85025; 85610; 85730; 87086; 87186; 93005; 93010; 99285-25; G0378

== ENCOUNTER 2023-07-06 13:34 | Observation (INO) | payer OTHER ==
[2023-07-06] MEDS ORDERED: ONDANSETRON 4 MG/2 ML VIAL IVPUSH ONE (14:07)
[2023-07-06] MEDS ORDERED: ACETAMINOPHEN 1000 MG/100 ML BAG IVPB ONE (14:07)
[2023-07-06] MEDS ORDERED: MECLIZINE HCL 25 MG TABLET (FP) PO ONE (14:07)
[2023-07-06] MEDS ORDERED: ALBUTEROL SO4 2.5/IPRATROPIUM 0.5 INH SOL 3 ML VIAL.NEB. NEB ONE ×2 (14:14→14:32)
[2023-07-06] MEDS ORDERED: SODIUM CHLORIDE 0.9% 500 ML INFUS.BAG IV ONE (14:25)
[2023-07-06] MEDS ORDERED: MECLIZINE HCL 25 MG TABLET (FP) ONE (14:32)
[2023-07-06] MEDS ORDERED: ACETAMINOPHEN INJECTION 100 ML IVPB ONE (14:33)
[2023-07-06] MEDS ORDERED: ONDANSETRON 4 MG/2 ML VIAL ONE (14:33)
[2023-07-06 14:41] LABS: BASO % 0.6 % (0-2.0); EOS % 1.8 % (0-4.5); HEMATOCRIT 37.1 % (32.4-45.2); HEMOGLOBIN 12.4 GM/dL (10.7-15.3); LYMPH % 17.8 % (8-40); MCH 21.6 pg (25.7-33.7); MCHC 33.3 g/dl (32.0-36.0); MEAN CELL VOLUME 64.9 fl (80-96); MONO % 5.7 % (3.8-10.2); NEUT % 74.1 % (42.8-82.8); PLATELET COUNT 360 10^3/uL (134-434); RBC 5.71 M/mm3 (3.60-5.2); RDW 16.4 % (11.6-15.6); WHITE BLOOD COUNT 9.3 K/mm3 (4.0-10.0)
[2023-07-06 15:13] LABS: POTASSIUM 4.4 mmol/L (3.5-5.1)
[2023-07-06 15:15] LABS: CALCIUM 8.5 mg/dL (8.5-10.1)
[2023-07-06 15:16] LABS: ALBUMIN 3.4 g/dl (3.4-5.0); BLOOD UREA NITROGEN 8.6 mg/dL (7-18); MAGNESIUM 2.3 mg/dL (1.8-2.4)
[2023-07-06 15:19] LABS: PHOSPHOROUS 4.2 mg/dL (2.5-4.9)
[2023-07-06 15:20] LABS: BILIRUBIN,TOTAL 0.4 mg/dL (0.2-1); TOT PROT 6.9 g/dl (6.4-8.2)
[2023-07-06 15:20] LABS: PH,URINE 7.5 (5.0-8.0); URINE APPEARANCE Clear; URINE BILIRUBIN Negative (NEGATIVE); URINE COLOR Yellow; URINE GLUCOSE (UA) Negative (NEGATIVE); URINE KETONE Negative (NEGATIVE); URINE LEUK ESTERASE 1+ (NEGATIVE); URINE NITRITE Negative (NEGATIVE); URINE PROTEIN 1+ (NEGATIVE); URINE UROBILINOGEN 0.2 mg/dL (0.2-1.0)
[2023-07-06 15:48] LABS: ANISOCYTOSIS 2+; MACROCYTOSIS 0; OVALOCYTE 1+
[2023-07-06] MEDS ORDERED: CEFTRIAXONE 1,000 MG in DEXTROSE 5%-WATER - 50 ML IVPB ONE (17:17)
[2023-07-06] MEDS ORDERED: CEFTRIAXONE 1 GM/50 ML BAG ONE (17:34)
[2023-07-06] MEDS: DONEPEZIL HCL 5 MG TABLET (FP) PO SCH (22:23)
[2023-07-06] MEDS: INSULIN (LEVEMIR) 100 UNITS/ML UNITS SQ SCH ×2 (22:24→22:35)
[2023-07-06] MEDS: MIRTAZAPINE 15 MG TABLET (FP) PO SCH (22:24)
[2023-07-06] MEDS: MELATONIN 1 MG TABLET PO SCH (22:24)
[2023-07-06] MEDS: ATORVASTATIN CA 20 MG TABLET (FP) PO SCH (22:24)
[2023-07-06] MEDS: MEMANTINE HCL 5 MG TABLET (UD) PO SCH (22:24)
[2023-07-06] MEDS ORDERED: ALBUTEROL SO4 HFA INHALER IH PRN (22:29)
[2023-07-06] MEDS: BUDESONIDE/FORMETEROL FUMARATE 80/4.5 mcg INHALER IH SCH (22:40)
[2023-07-06] MEDS: busPIRone HCL 5 MG TABLET PO SCH (22:55)
[2023-07-07 01:28] VITALS: BMI 30.6
[2023-07-07] MEDS: busPIRone HCL 5 MG TABLET PO SCH ×3 (06:03→22:38)
[2023-07-07] MEDS: CEFTRIAXONE 1 GM in DEXTROSE 5%-WATER - 50 ML IVPB SCH (09:13)
[2023-07-07] MEDS: ENOXAPARIN NA (PORCINE) 40 MG/0.4 ML DISP.SYRIN SQ SCH (09:13)
[2023-07-07] MEDS: MEMANTINE HCL 5 MG TABLET (UD) PO SCH ×2 (09:14→22:38)
[2023-07-07] MEDS: VALSARTAN 80 MG TABLET PO SCH (09:14)
[2023-07-07] MEDS: PANTOPRAZOLE 20 MG TABLET PO SCH (09:14)
[2023-07-07] MEDS: amLODIPine BESYLATE 10 MG TABLET (FP) PO SCH (09:14)
[2023-07-07] MEDS: ASPIRIN 81 MG CHEWABLE TABLETS PO SCH (09:14)
[2023-07-07] MEDS: DONEPEZIL HCL 5 MG TABLET (FP) PO SCH ×2 (09:14→22:38)
[2023-07-07] MEDS: BUDESONIDE/FORMETEROL FUMARATE 80/4.5 mcg INHALER IH SCH (09:25)
[2023-07-07] MEDS ORDERED: ONDANSETRON 4 MG/2 ML VIAL IVPUSH PRN (12:39)
[2023-07-07] MEDS ORDERED: FAMOTIDINE 20 MG/50 ML IVPB 20 MG/50 ML MG IVPB SCH (12:45)
[2023-07-07] MEDS: INSULIN (LEVEMIR) 100 UNITS/ML UNITS SQ SCH ×2 (22:00→22:41)
[2023-07-07] MEDS: MELATONIN 1 MG TABLET PO SCH (22:37)
[2023-07-07] MEDS: ATORVASTATIN CA 20 MG TABLET (FP) PO SCH (22:38)
[2023-07-07] MEDS: MIRTAZAPINE 15 MG TABLET (FP) PO SCH (22:38)
[2023-07-08] MEDS: BUDESONIDE/FORMETEROL FUMARATE 80/4.5 mcg INHALER IH SCH ×3 (01:22→22:00)
[2023-07-08 06:07] VITALS: RESP 18
[2023-07-08] MEDS: busPIRone HCL 5 MG TABLET PO SCH ×3 (06:19→21:56)
[2023-07-08] MEDS: VALSARTAN 80 MG TABLET PO SCH (09:29)
[2023-07-08] MEDS: PANTOPRAZOLE 20 MG TABLET PO SCH (09:29)
[2023-07-08] MEDS: DONEPEZIL HCL 5 MG TABLET (FP) PO SCH ×2 (09:30→22:26)
[2023-07-08] MEDS: CEFTRIAXONE 1 GM in DEXTROSE 5%-WATER - 50 ML IVPB SCH (09:30)
[2023-07-08] MEDS: amLODIPine BESYLATE 10 MG TABLET (FP) PO SCH (09:30)
[2023-07-08] MEDS: ENOXAPARIN NA (PORCINE) 40 MG/0.4 ML DISP.SYRIN SQ SCH (09:30)
[2023-07-08] MEDS: ASPIRIN 81 MG CHEWABLE TABLETS PO SCH (09:30)
[2023-07-08] MEDS: MEMANTINE HCL 5 MG TABLET (UD) PO SCH ×2 (09:30→21:56)
[2023-07-08] MEDS: ATORVASTATIN CA 20 MG TABLET (FP) PO SCH (21:56)
[2023-07-08] MEDS: MIRTAZAPINE 15 MG TABLET (FP) PO SCH (21:56)
[2023-07-08] MEDS: INSULIN (LEVEMIR) 100 UNITS/ML UNITS SQ SCH (21:59)
[2023-07-08] MEDS: MELATONIN 1 MG TABLET PO SCH (22:00)
[2023-07-09] MEDS: busPIRone HCL 5 MG TABLET PO SCH ×2 (05:41→13:01)
[2023-07-09] MEDS: ENOXAPARIN NA (PORCINE) 40 MG/0.4 ML DISP.SYRIN SQ SCH (09:29)
[2023-07-09] MEDS: ASPIRIN 81 MG CHEWABLE TABLETS PO SCH (09:29)
[2023-07-09] MEDS: VALSARTAN 80 MG TABLET PO SCH (09:29)
[2023-07-09] MEDS: PANTOPRAZOLE 20 MG TABLET PO SCH (09:30)
[2023-07-09] MEDS: amLODIPine BESYLATE 10 MG TABLET (FP) PO SCH (09:30)
[2023-07-09] MEDS: MEMANTINE HCL 5 MG TABLET (UD) PO SCH (09:30)
[2023-07-09] MEDS: BUDESONIDE/FORMETEROL FUMARATE 80/4.5 mcg INHALER IH SCH (09:30)
[2023-07-09] MEDS: DONEPEZIL HCL 5 MG TABLET (FP) PO SCH (09:30)
[2023-07-09] MEDS: CEFTRIAXONE 1 GM in DEXTROSE 5%-WATER - 50 ML IVPB SCH (11:16)
[2023-07-09 13:48] VITALS: BP 124/50; PULSE 60; TEMP 99.4
[2023-07-12] MEDS ORDERED: LIRAGLUTIDE 0.6 MG/0.1 ML PEN.INJCTR SQ SCH (10:00)
== END 2023-07-09 14:45 | disposition home or self-care (01) ==
LOC: JER 13:34 → JERBED 17:23 → J6S 20:26
PROVIDERS: ADMIT Internal Medicine; ATTEND Internal Medicine
PROC: 3E033NZ Introduction of Analgesics, Hypnotics, Sedatives into Peripheral Vein, Percutaneous Approach (ICD-10-PCS; principal; 2023-07-06)
PROC: 3E0F7GC Introduction of Other Therapeutic Substance into Respiratory Tract, Via Natural or Artificial Opening (ICD-10-PCS; 2023-07-06)
PROC: 3E03329 Introduction of Other Anti-infective into Peripheral Vein, Percutaneous Approach (ICD-10-PCS; 2023-07-06)
PROC: 3E023GC Introduction of Other Therapeutic Substance into Muscle, Percutaneous Approach (ICD-10-PCS; 2023-07-06)
PROC: 3E033GC Introduction of Other Therapeutic Substance into Peripheral Vein, Percutaneous Approach (ICD-10-PCS; 2023-07-06)
PROC: 3E0337Z Introduction of Electrolytic and Water Balance Substance into Peripheral Vein, Percutaneous Approach (ICD-10-PCS; 2023-07-06)
DX: K57.92 Diverticulitis of intestine, part unspecified, without perforation or abscess without bleeding (principal); E11.9 Type 2 diabetes mellitus without complications; I11.0 Hypertensive heart disease with heart failure; I25.10 Atherosclerotic heart disease of native coronary artery without angina pectoris; Z95.5 Presence of coronary angioplasty implant and graft; J45.909 Unspecified asthma, uncomplicated; I50.9 Heart failure, unspecified; F03.90 Unspecified dementia, unspecified severity, without behavioral disturbance, psychotic disturbance, mood disturbance, and anxiety
CPT/HCPCS: 0241U-QW; 36415; 70450-TC; 71045-TC-FY; 74177-TC; 80053; 81003; 82962; 83605; 83690; 83735; 84100; 84484; 85025; 87086; 87186; 87635; 93005; 93010; 94640; 96365; 96366; 96367; 96372; 96375; 96376; 97116-GP; 97162-GP; 99285-25; G0378; Q9967

== ENCOUNTER 2023-09-14 16:42 | Inpatient (IN) | payer OTHER ==
[2023-09-14] MEDS ORDERED: ALBUTEROL SO4 2.5/IPRATROPIUM 0.5 INH SOL 3 ML VIAL.NEB. NEB ONE (17:13)
[2023-09-14] MEDS: ALBUTEROL SO4 2.5/IPRATROPIUM 0.5 INH SOL 3 ML VIAL.NEB. NEB SCH (17:22)
[2023-09-14] MEDS ORDERED: DEXAMETHASONE SOD PHOSPHATE 10 MG/1 ML VIAL IVPUSH ONE (17:30)
[2023-09-14 17:45] LABS: VENOUS BASE EXCESS 0.5 mmol/L (-2-2); VENOUS O2 SATURATION 96.7 % (70-80); VENOUS PCO2 37.2 mmHg (38-52); VENOUS PH 7.437 (7.310-7.410)
[2023-09-14] MEDS ORDERED: DEXAMETHASONE SOD PHOSPHATE 10 MG/1 ML VIAL ONE (17:45)
[2023-09-14 18:02] LABS: BASO % 0.6 % (0-2.0); EOS % 1.6 % (0-4.5); HEMATOCRIT 32.5 % (32.4-45.2); HEMOGLOBIN 10.5 GM/dL (10.7-15.3); LYMPH % 12.9 % (8-40); MCH 21.2 pg (25.7-33.7); MCHC 32.3 g/dl (32.0-36.0); MEAN CELL VOLUME 65.6 fl (80-96); MEAN PLT VOLUME 8.6 fl (7.5-11.1); MONO % 7.5 % (3.8-10.2); NEUT % 77.4 % (42.8-82.8); PLATELET COUNT 363 10^3/uL (134-434); RBC 4.96 M/mm3 (3.60-5.2); WHITE BLOOD COUNT 12.7 K/mm3 (4.0-10.0)
[2023-09-14 18:05] LABS: POTASSIUM 3.5 mmol/L (3.5-5.1)
[2023-09-14 18:07] LABS: ALBUMIN 2.7 g/dl (3.4-5.0); BLOOD UREA NITROGEN 9.4 mg/dL (7-18); CALCIUM 7.9 mg/dL (8.5-10.1)
[2023-09-14 18:07] LABS: INR 1.12 (0.83-1.09)
[2023-09-14 18:10] LABS: ACTIVATED PTT 26.6 SECONDS (25.2-36.5)
[2023-09-14 18:12] LABS: BILIRUBIN,TOTAL 0.3 mg/dL (0.2-1); TOT PROT 6.2 g/dl (6.4-8.2)
[2023-09-14 18:15] LABS: N-TERMINAL BNP 2261.2 pg/ml (5-450)
[2023-09-14 18:23] LABS: URINE APPEARANCE CLEAR; URINE BILIRUBIN NEGATIVE (NEGATIVE); URINE COLOR YELLOW; URINE GLUCOSE (UA) NEGATIVE (NEGATIVE); URINE KETONE NEGATIVE (NEGATIVE); URINE LEUK ESTERASE TRACE (NEGATIVE); URINE NITRITE NEGATIVE (NEGATIVE); URINE PROTEIN TRACE (NEGATIVE)
[2023-09-14] MEDS ORDERED: FUROSEMIDE 40 MG/4 ML INJECTABLE VIAL IVPUSH ONE (18:38)
[2023-09-14] MEDS ORDERED: FUROSEMIDE 40 MG/4 ML INJECTABLE VIAL ONE (19:11)
[2023-09-14 19:33] LABS: ANISOCYTOSIS 1+; MACROCYTOSIS 1+; OVALOCYTE 2+; TARGET CELLS 1+
[2023-09-14 20:19] LABS: EPI CELLS 8.9 /uL (0-25.1); HYALINE CASTS 0.38 /uL (0-3.1); URINE BACTERIA 184.1 /uL (0-1359); URINE RBC 8.6 /uL (0-23.9); URINE WBC 16.7 /uL (0-25.8)
[2023-09-14] MEDS ORDERED: MAG HYDROX/AL HYDROX/SIMETH 30 ML UNIT-DOSE CUP PO PRN (23:42)
[2023-09-14] MEDS ORDERED: ALBUTEROL SO4 HFA INHALER IH PRN (23:42)
[2023-09-14] MEDS ORDERED: ONDANSETRON 4 MG TABLET PO PRN (23:42)
[2023-09-15] MEDS ORDERED: DONEPEZIL HCL 5 MG TABLET (FP) ONE (00:30)
[2023-09-15] MEDS: DONEPEZIL HCL 5 MG TABLET (FP) PO SCH ×3 (01:00→22:12)
[2023-09-15] MEDS: MELATONIN 1 MG TABLET PO PRN (04:08)
[2023-09-15] MEDS ORDERED: busPIRone HCL 5 MG TABLET ONE (06:50)
[2023-09-15] MEDS ORDERED: PANTOPRAZOLE 40 MG TABLET PO ONE (06:50)
[2023-09-15] MEDS: busPIRone HCL 10 MG TABLET (FP) PO SCH ×3 (06:52→22:12)
[2023-09-15] MEDS: PANTOPRAZOLE 40 MG TABLET PO SCH (06:52)
[2023-09-15] MEDS: INSULIN SLIDING SCALE (NOVOLOG) 1 VIAL SQ SCH ×4 (08:35→22:12)
[2023-09-15 08:43] LABS: HEMATOCRIT 31.2 % (32.4-45.2); HEMOGLOBIN 10.1 GM/dL (10.7-15.3); MCH 21.6 pg (25.7-33.7); MCHC 32.5 g/dl (32.0-36.0); MEAN CELL VOLUME 66.3 fl (80-96); MEAN PLT VOLUME 8.9 fl (7.5-11.1); PLATELET COUNT 350 10^3/uL (134-434); WHITE BLOOD COUNT 10.3 K/mm3 (4.0-10.0)
[2023-09-15 08:52] LABS: POTASSIUM 4.3 mmol/L (3.5-5.1)
[2023-09-15 08:54] LABS: BLOOD UREA NITROGEN 11.5 mg/dL (7-18); CALCIUM 8.2 mg/dL (8.5-10.1)
[2023-09-15 08:55] LABS: ALBUMIN 2.6 g/dl (3.4-5.0)
[2023-09-15 08:59] LABS: BILIRUBIN,TOTAL 0.4 mg/dL (0.2-1); TOT PROT 6.1 g/dl (6.4-8.2)
[2023-09-15] MEDS ORDERED: FUROSEMIDE 40 MG/4 ML INJECTABLE VIAL ONE (10:37)
[2023-09-15 10:52] LABS: ANISOCYTOSIS 0; HELMET CELLS 0; HOWELL-JOLLY BODIES 0; MACROCYTOSIS 0; OVALOCYTE 0; ROULEAU 0; SICKELED CELLS 0; TARGET CELLS 0; TEAR DROP CELLS 0; TOXIC GRANULATION 0
[2023-09-15] MEDS: FERROUS SO4 325 MG TABLET (FP) PO SCH (10:53)
[2023-09-15] MEDS: VALSARTAN 80 MG TABLET PO SCH (10:53)
[2023-09-15] MEDS: MEMANTINE HCL 5 MG TABLET (UD) PO SCH ×2 (10:53→22:12)
[2023-09-15] MEDS: amLODIPine BESYLATE 10 MG TABLET (FP) PO SCH (10:53)
[2023-09-15] MEDS: FUROSEMIDE 40 MG/4 ML INJECTABLE VIAL IVPUSH SCH (10:53)
[2023-09-15] MEDS: ASPIRIN 81 MG CHEWABLE TABLETS PO SCH (10:53)
[2023-09-15] MEDS: BUDESONIDE/FORMOTEROL FUMARATE 160-4.5 MCG (10.3 GM INHALER) IH SCH ×2 (11:37→22:15)
[2023-09-15] MEDS ORDERED: INSULIN (NOVOLOG) ASPART 100 UNITS/ML 10ML VIAL ONE ×3 (12:55→21:25)
[2023-09-15] MEDS ORDERED: ACETAMINOPHEN 325 MG TABLET (FP) PO PRN (15:40)
[2023-09-15] MEDS: ALBUTEROL SO4 2.5/IPRATROPIUM 0.5 INH SOL 3 ML VIAL.NEB. NEB PRN ×2 (16:33→21:01)
[2023-09-15 16:46] VITALS: BMI 30.2
[2023-09-15] MEDS: predniSONE 10 MG TABLET (UD) PO SCH (17:14)
[2023-09-15] MEDS: MIRTAZAPINE 15 MG TABLET (FP) PO SCH (22:12)
[2023-09-15] MEDS: ATORVASTATIN CA 20 MG TABLET (FP) PO SCH (22:12)
[2023-09-16] MEDS: INSULIN SLIDING SCALE (NOVOLOG) 1 VIAL SQ SCH ×4 (06:03→21:23)
[2023-09-16] MEDS: busPIRone HCL 10 MG TABLET (FP) PO SCH ×3 (06:03→21:23)
[2023-09-16] MEDS: PANTOPRAZOLE 40 MG TABLET PO SCH (06:03)
[2023-09-16] MEDS: ALBUTEROL SO4 2.5/IPRATROPIUM 0.5 INH SOL 3 ML VIAL.NEB. NEB PRN ×3 (07:35→20:00)
[2023-09-16] MEDS: amLODIPine BESYLATE 10 MG TABLET (FP) PO SCH (09:38)
[2023-09-16] MEDS: FUROSEMIDE 40 MG/4 ML INJECTABLE VIAL IVPUSH SCH (09:38)
[2023-09-16] MEDS: ASPIRIN 81 MG CHEWABLE TABLETS PO SCH (09:38)
[2023-09-16] MEDS: predniSONE 10 MG TABLET (UD) PO SCH (09:38)
[2023-09-16] MEDS: VALSARTAN 80 MG TABLET PO SCH (09:38)
[2023-09-16] MEDS: DONEPEZIL HCL 5 MG TABLET (FP) PO SCH ×2 (09:38→21:42)
[2023-09-16] MEDS: MEMANTINE HCL 5 MG TABLET (UD) PO SCH ×2 (09:39→21:23)
[2023-09-16] MEDS: FERROUS SO4 325 MG TABLET (FP) PO SCH (09:44)
[2023-09-16] MEDS: BUDESONIDE/FORMOTEROL FUMARATE 160-4.5 MCG (10.3 GM INHALER) IH SCH ×2 (11:16→21:42)
[2023-09-16] MEDS ORDERED: INSULIN (NOVOLOG) ASPART 100 UNITS/ML 10ML VIAL ONE (21:18)
[2023-09-16] MEDS: ATORVASTATIN CA 20 MG TABLET (FP) PO SCH (21:23)
[2023-09-16] MEDS: MIRTAZAPINE 15 MG TABLET (FP) PO SCH (21:23)
[2023-09-17] MEDS: busPIRone HCL 10 MG TABLET (FP) PO SCH ×3 (06:16→21:49)
[2023-09-17] MEDS ORDERED: INSULIN (NOVOLOG) ASPART 100 UNITS/ML 10ML VIAL ONE ×3 (06:28→21:47)
[2023-09-17] MEDS: INSULIN SLIDING SCALE (NOVOLOG) 1 VIAL SQ SCH ×4 (06:38→21:48)
[2023-09-17] MEDS: PANTOPRAZOLE 40 MG TABLET PO SCH (06:38)
[2023-09-17] MEDS: ALBUTEROL SO4 2.5/IPRATROPIUM 0.5 INH SOL 3 ML VIAL.NEB. NEB PRN ×2 (07:10→13:55)
[2023-09-17 09:12] LABS: BASO % 0.3 % (0-2.0); EOS % 0.1 % (0-4.5); HEMATOCRIT 32.1 % (32.4-45.2); HEMOGLOBIN 10.2 GM/dL (10.7-15.3); LYMPH % 15.2 % (8-40); MCH 21.2 pg (25.7-33.7); MCHC 31.9 g/dl (32.0-36.0); MEAN CELL VOLUME 66.5 fl (80-96); MEAN PLT VOLUME 8.5 fl (7.5-11.1); MONO % 5.8 % (3.8-10.2); NEUT % 78.6 % (42.8-82.8); PLATELET COUNT 361 10^3/uL (134-434); RBC 4.82 M/mm3 (3.60-5.2); RDW 16.1 % (11.6-15.6); WHITE BLOOD COUNT 10.9 K/mm3 (4.0-10.0)
[2023-09-17] MEDS: predniSONE 10 MG TABLET (UD) PO SCH (09:24)
[2023-09-17] MEDS: ASPIRIN 81 MG CHEWABLE TABLETS PO SCH (09:24)
[2023-09-17] MEDS: FERROUS SO4 325 MG TABLET (FP) PO SCH (09:24)
[2023-09-17] MEDS: VALSARTAN 80 MG TABLET PO SCH (09:24)
[2023-09-17] MEDS: amLODIPine BESYLATE 10 MG TABLET (FP) PO SCH (09:25)
[2023-09-17] MEDS: DONEPEZIL HCL 5 MG TABLET (FP) PO SCH ×2 (09:25→21:49)
[2023-09-17] MEDS: FUROSEMIDE 40 MG/4 ML INJECTABLE VIAL IVPUSH SCH (09:26)
[2023-09-17] MEDS: MEMANTINE HCL 5 MG TABLET (UD) PO SCH ×2 (09:26→21:49)
[2023-09-17 09:31] LABS: POTASSIUM 3.5 mmol/L (3.5-5.1)
[2023-09-17 09:39] LABS: CALCIUM 7.7 mg/dL (8.5-10.1)
[2023-09-17 09:40] LABS: BLOOD UREA NITROGEN 22.6 mg/dL (7-18)
[2023-09-17 09:43] LABS: CREATININE 1.1 mg/dL (0.55-1.3)
[2023-09-17] MEDS: BUDESONIDE/FORMOTEROL FUMARATE 160-4.5 MCG (10.3 GM INHALER) IH SCH ×2 (10:10→21:50)
[2023-09-17 15:05] LABS: MAGNESIUM 2.5 mg/dL (1.8-2.4)
[2023-09-17 15:12] LABS: PHOSPHOROUS 3.4 mg/dL (2.5-4.9)
[2023-09-17] MEDS: ATORVASTATIN CA 20 MG TABLET (FP) PO SCH (21:49)
[2023-09-17] MEDS: MIRTAZAPINE 15 MG TABLET (FP) PO SCH (21:49)
[2023-09-17] MEDS ORDERED: INSULIN (NOVOLOG) ASPART 100 UNITS/ML 10ML VIAL SQ ONE (22:52)
[2023-09-18] MEDS ORDERED: INSULIN (NOVOLOG) ASPART 100 UNITS/ML 10ML VIAL ONE ×4 (06:08→23:01)
[2023-09-18] MEDS: busPIRone HCL 10 MG TABLET (FP) PO SCH ×3 (06:35→22:41)
[2023-09-18] MEDS: INSULIN SLIDING SCALE (NOVOLOG) 1 VIAL SQ SCH ×4 (06:35→23:06)
[2023-09-18] MEDS: PANTOPRAZOLE 40 MG TABLET PO SCH (06:35)
[2023-09-18 08:52] LABS: BASO % 0.3 % (0-2.0); EOS % 0.4 % (0-4.5); HEMATOCRIT 33.3 % (32.4-45.2); HEMOGLOBIN 10.9 GM/dL (10.7-15.3); LYMPH % 19.2 % (8-40); MCH 21.6 pg (25.7-33.7); MCHC 32.7 g/dl (32.0-36.0); MEAN PLT VOLUME 8.5 fl (7.5-11.1); MONO % 7.1 % (3.8-10.2); PLATELET COUNT 391 10^3/uL (134-434); RBC 5.05 M/mm3 (3.60-5.2); WHITE BLOOD COUNT 8.8 K/mm3 (4.0-10.0)
[2023-09-18 09:15] LABS: POTASSIUM 3.4 mmol/L (3.5-5.1)
[2023-09-18 09:19] LABS: BLOOD UREA NITROGEN 18.3 mg/dL (7-18)
[2023-09-18] MEDS: predniSONE 10 MG TABLET (UD) PO SCH (10:48)
[2023-09-18] MEDS: DONEPEZIL HCL 5 MG TABLET (FP) PO SCH ×2 (10:48→22:42)
[2023-09-18] MEDS: amLODIPine BESYLATE 10 MG TABLET (FP) PO SCH (10:48)
[2023-09-18] MEDS: FERROUS SO4 325 MG TABLET (FP) PO SCH (10:49)
[2023-09-18] MEDS: ASPIRIN 81 MG CHEWABLE TABLETS PO SCH (10:49)
[2023-09-18] MEDS: FUROSEMIDE 40 MG/4 ML INJECTABLE VIAL IVPUSH SCH (10:49)
[2023-09-18] MEDS: MEMANTINE HCL 5 MG TABLET (UD) PO SCH ×2 (10:49→22:42)
[2023-09-18] MEDS: VALSARTAN 80 MG TABLET PO SCH (10:49)
[2023-09-18] MEDS: BUDESONIDE/FORMOTEROL FUMARATE 160-4.5 MCG (10.3 GM INHALER) IH SCH ×2 (10:51→22:42)
[2023-09-18] MEDS ORDERED: INSULIN (LEVEMIR) 100 UNITS/ML UNITS SQ ONE ×2 (11:08→14:21)
[2023-09-18 11:19] LABS: ANISOCYTOSIS 0; MACROCYTOSIS 0
[2023-09-18] MEDS ORDERED: POTASSIUM CHLORIDE ORAL LIQUID 20 MEQ/15 ML PO ONE (11:23)
[2023-09-18] MEDS ORDERED: INSULIN (LEVEMIR) 100 UNITS/ML UNITS SQ SCH (22:00)
[2023-09-18] MEDS: MIRTAZAPINE 15 MG TABLET (FP) PO SCH (22:41)
[2023-09-18] MEDS: MELATONIN 1 MG TABLET PO PRN (22:42)
[2023-09-18] MEDS: ATORVASTATIN CA 20 MG TABLET (FP) PO SCH (22:42)
[2023-09-19] MEDS: busPIRone HCL 10 MG TABLET (FP) PO SCH ×3 (06:17→22:15)
[2023-09-19] MEDS: PANTOPRAZOLE 40 MG TABLET PO SCH (06:17)
[2023-09-19] MEDS: INSULIN SLIDING SCALE (NOVOLOG) 1 VIAL SQ SCH ×4 (06:19→22:17)
[2023-09-19 08:41] LABS: BASO % 0.1 % (0-2.0); HEMATOCRIT 34.1 % (32.4-45.2); HEMOGLOBIN 11.2 GM/dL (10.7-15.3); LYMPH % 23.8 % (8-40); MCH 21.5 pg (25.7-33.7); MCHC 32.8 g/dl (32.0-36.0); MEAN CELL VOLUME 65.5 fl (80-96); MEAN PLT VOLUME 8.3 fl (7.5-11.1); MONO % 7.1 % (3.8-10.2); PLATELET COUNT 413 10^3/uL (134-434); RBC 5.21 M/mm3 (3.60-5.2); RDW 16.2 % (11.6-15.6); WHITE BLOOD COUNT 10.2 K/mm3 (4.0-10.0)
[2023-09-19 08:55] LABS: POTASSIUM 3.5 mmol/L (3.5-5.1)
[2023-09-19 08:57] LABS: CALCIUM 8.3 mg/dL (8.5-10.1)
[2023-09-19 09:58] VITALS: RESP 20
[2023-09-19] MEDS: VALSARTAN 80 MG TABLET PO SCH (10:10)
[2023-09-19] MEDS: predniSONE 10 MG TABLET (UD) PO SCH (10:10)
[2023-09-19] MEDS: MEMANTINE HCL 5 MG TABLET (UD) PO SCH ×2 (10:11→22:15)
[2023-09-19] MEDS: DONEPEZIL HCL 5 MG TABLET (FP) PO SCH ×2 (10:11→22:15)
[2023-09-19] MEDS: FERROUS SO4 325 MG TABLET (FP) PO SCH (10:11)
[2023-09-19] MEDS: ASPIRIN 81 MG CHEWABLE TABLETS PO SCH (10:11)
[2023-09-19] MEDS: amLODIPine BESYLATE 10 MG TABLET (FP) PO SCH (10:11)
[2023-09-19] MEDS: FUROSEMIDE 40 MG/4 ML INJECTABLE VIAL IVPUSH SCH (10:16)
[2023-09-19] MEDS: BUDESONIDE/FORMOTEROL FUMARATE 160-4.5 MCG (10.3 GM INHALER) IH SCH ×2 (10:18→22:16)
[2023-09-19] MEDS ORDERED: INSULIN (NOVOLOG) ASPART 100 UNITS/ML 10ML VIAL ONE ×2 (12:48→20:28)
[2023-09-19] MEDS ORDERED: INSULIN (LEVEMIR) 100 UNITS/ML UNITS SQ ONE (20:28)
[2023-09-19] MEDS ORDERED: INSULIN (LEVEMIR) 100 UNITS/ML UNITS SQ SCH (22:00)
[2023-09-19] MEDS: MELATONIN 1 MG TABLET PO PRN (22:15)
[2023-09-19] MEDS: MIRTAZAPINE 15 MG TABLET (FP) PO SCH (22:15)
[2023-09-19] MEDS: ATORVASTATIN CA 20 MG TABLET (FP) PO SCH (22:15)
[2023-09-20] MEDS: busPIRone HCL 10 MG TABLET (FP) PO SCH ×2 (05:51→14:41)
[2023-09-20] MEDS: PANTOPRAZOLE 40 MG TABLET PO SCH ×2 (05:51→06:03)
[2023-09-20] MEDS: INSULIN SLIDING SCALE (NOVOLOG) 1 VIAL SQ SCH ×3 (05:51→12:26)
[2023-09-20] MEDS: FERROUS SO4 325 MG TABLET (FP) PO SCH (10:32)
[2023-09-20] MEDS: amLODIPine BESYLATE 10 MG TABLET (FP) PO SCH (10:32)
[2023-09-20] MEDS: VALSARTAN 80 MG TABLET PO SCH (10:32)
[2023-09-20] MEDS: DONEPEZIL HCL 5 MG TABLET (FP) PO SCH (10:32)
[2023-09-20] MEDS: ASPIRIN 81 MG CHEWABLE TABLETS PO SCH (10:32)
[2023-09-20] MEDS: predniSONE 10 MG TABLET (UD) PO SCH (10:32)
[2023-09-20] MEDS: MEMANTINE HCL 5 MG TABLET (UD) PO SCH (10:33)
[2023-09-20] MEDS: FUROSEMIDE 40 MG/4 ML INJECTABLE VIAL IVPUSH SCH (10:33)
[2023-09-20] MEDS: BUDESONIDE/FORMOTEROL FUMARATE 160-4.5 MCG (10.3 GM INHALER) IH SCH (11:05)
[2023-09-20] MEDS ORDERED: INSULIN (NOVOLOG) ASPART 100 UNITS/ML 10ML VIAL ONE (12:20)
[2023-09-20 14:39] VITALS: BP 138/47; PULSE 58; TEMP 97.6
[2023-09-20] MEDS ORDERED: INSULIN (LEVEMIR) 100 UNITS/ML UNITS SQ SCH (22:00)
== END 2023-09-20 14:50 | DRG 291 ==
LOC: JER 16:42 → JERBED 18:40 → J8W 09-15 12:11
PROVIDERS: ADMIT Internal Medicine; ATTEND Internal Medicine
DX: I13.0 Hypertensive heart and chronic kidney disease with heart failure and stage 1 through stage 4 chronic kidney disease, or unspecified chronic kidney disease (principal); I50.33 Acute on chronic diastolic (congestive) heart failure; J44.9 Chronic obstructive pulmonary disease, unspecified; G30.9 Alzheimer's disease, unspecified; F02.80 Dementia in other diseases classified elsewhere, unspecified severity, without behavioral disturbance, psychotic disturbance, mood disturbance, and anxiety; F41.9 Anxiety disorder, unspecified; I25.10 Atherosclerotic heart disease of native coronary artery without angina pectoris; K21.9 Gastro-esophageal reflux disease without esophagitis; E11.65 Type 2 diabetes mellitus with hyperglycemia; E78.00 Pure hypercholesterolemia, unspecified; E11.22 Type 2 diabetes mellitus with diabetic chronic kidney disease; N18.30 Chronic kidney disease, stage 3 unspecified; Z95.2 Presence of prosthetic heart valve; Z95.5 Presence of coronary angioplasty implant and graft
CPT/HCPCS: 0241U-QW; 36415; 71045-TC-FY; 80048; 80053; 81003; 82803; 82962; 83735; 83880; 84100; 84484; 85025; 85610; 85730; 87086; 87635; 93005; 93010; 94640; 94761; 97116-GP; 97161-GP; 99285-25; J1100

== ENCOUNTER 2024-04-25 08:47 | Inpatient (IN) | payer OTHER ==
[2024-04-25] MEDS ORDERED: LIDOCAINE 4% PATCH TP ONE (11:14)
[2024-04-25] MEDS ORDERED: ACETAMINOPHEN 325 MG TABLET (FP) ONE (11:14)
[2024-04-25] MEDS: LIDOCAINE 4% PATCH TP ONE (11:36)
[2024-04-25] MEDS: ACETAMINOPHEN 500 MG TABLET (FP) PO ONE (11:36)
[2024-04-25 12:18] LABS: BASO % 0.6 % (0-2.0); EOS % 2.4 % (0-4.5); HEMATOCRIT 34.1 % (32.4-45.2); HEMOGLOBIN 11.3 GM/dL (10.7-15.3); LYMPH % 21.9 % (8-40); MCH 21.9 pg (25.7-33.7); MCHC 33.2 g/dl (32.0-36.0); MEAN CELL VOLUME 65.9 fl (80-96); MEAN PLT VOLUME 8.3 fl (7.5-11.1); MONO % 5.4 % (3.8-10.2); NEUT % 69.7 % (42.8-82.8); PLATELET COUNT 291 10^3/uL (134-434); RBC 5.17 M/mm3 (3.60-5.2); RDW 17.2 % (11.6-15.6); WHITE BLOOD COUNT 8.8 K/mm3 (4.0-10.0)
[2024-04-25 12:37] LABS: POTASSIUM 4.7 mmol/L (3.5-5.1)
[2024-04-25 12:39] LABS: ALBUMIN 3.2 g/dl (3.4-5.0); CALCIUM 8.7 mg/dL (8.5-10.1)
[2024-04-25 12:40] LABS: BLOOD UREA NITROGEN 39.4 mg/dL (7-18)
[2024-04-25 12:42] LABS: CREATININE 1.8 mg/dL (0.55-1.3)
[2024-04-25 12:44] LABS: BILIRUBIN,TOTAL 0.4 mg/dL (0.2-1); TOT PROT 6.6 g/dl (6.4-8.2)
[2024-04-25 12:52] LABS: EPI CELLS 30 /uL (0-25.1); HYALINE CASTS 0 /uL (0-3.1); PH,URINE 6.5 (5.0-8.0); URINE APPEARANCE CLEAR; URINE BACTERIA 321 /uL (0-1359); URINE BILIRUBIN NEGATIVE (NEGATIVE); URINE COLOR YELLOW; URINE GLUCOSE (UA) NEGATIVE (NEGATIVE); URINE KETONE NEGATIVE (NEGATIVE); URINE LEUK ESTERASE 1+ (NEGATIVE); URINE NITRITE NEGATIVE (NEGATIVE); URINE PROTEIN NEGATIVE (NEGATIVE); URINE RBC 11 /uL (0-23.9); URINE UROBILINOGEN 0.2 mg/dL (0.2-1.0); URINE WBC 49 /uL (0-25.8)
[2024-04-25 13:57] LABS: ANISOCYTOSIS 3+; MACROCYTOSIS 0
[2024-04-25] MEDS ORDERED: CEFTRIAXONE 1 GM/50 ML BAG ONE (14:14)
[2024-04-25] MEDS ORDERED: ALBUTEROL SO4 HFA INHALER IH PRN (14:17)
[2024-04-25] MEDS ORDERED: ALBUTEROL SO4 2.5/IPRATROPIUM 0.5 INH SOL 3 ML VIAL.NEB. NEB PRN (14:17)
[2024-04-25] MEDS: SODIUM CHLORIDE 0.9% 500 ML INFUS.BAG IV ONE (14:36)
[2024-04-25] MEDS: INSULIN ASPART SLIDING SCALE (NOVOLOG) 1 VIAL SQ SCH (17:19)
[2024-04-25] MEDS ORDERED: ACETAMINOPHEN INJECTION 100 ML IVPB ONE (20:52)
[2024-04-25] MEDS: ACETAMINOPHEN 1000 MG/100 ML BAG IVPB PRN (21:00)
[2024-04-25] MEDS: DONEPEZIL HCL 5 MG TABLET (FP) PO SCH (21:22)
[2024-04-25] MEDS: MIRTAZAPINE 15 MG TABLET (FP) PO SCH (21:22)
[2024-04-25] MEDS: ATORVASTATIN CA 20 MG TABLET (FP) PO SCH (21:22)
[2024-04-25] MEDS: MELATONIN 1 MG TABLET PO SCH (21:22)
[2024-04-25] MEDS: MEMANTINE HCL 5 MG TABLET (UD) PO SCH (21:22)
[2024-04-25] MEDS: HEPARIN NA (PORCINE) 5,000 UNITS/ML 1ML VIAL SQ SCH (21:23)
[2024-04-25] MEDS: INSULIN (LEVEMIR) 100 UNITS/ML UNITS SQ SCH (21:23)
[2024-04-25] MEDS: LIDOCAINE PATCH REMOVAL MC SCH ×2 (21:24→23:06)
[2024-04-25] MEDS: BUDESONIDE/FORMETEROL FUMARATE 80/4.5 mcg INHALER IH SCH (23:16)
[2024-04-26 02:47] VITALS: BMI 29.9
[2024-04-26 08:01] LABS: BASO % 0.3 % (0-2.0); EOS % 3.1 % (0-4.5); HEMATOCRIT 31.6 % (32.4-45.2); HEMOGLOBIN 10.3 GM/dL (10.7-15.3); LYMPH % 26.7 % (8-40); MCHC 32.6 g/dl (32.0-36.0); MEAN CELL VOLUME 67.6 fl (80-96); MEAN PLT VOLUME 8.6 fl (7.5-11.1); MONO % 6.5 % (3.8-10.2); NEUT % 63.4 % (42.8-82.8); PLATELET COUNT 272 10^3/uL (134-434); RBC 4.68 M/mm3 (3.60-5.2); RDW 17.1 % (11.6-15.6); WHITE BLOOD COUNT 7.1 K/mm3 (4.0-10.0)
[2024-04-26 08:06] LABS: POTASSIUM 4.6 mmol/L (3.5-5.1)
[2024-04-26 08:14] LABS: BLOOD UREA NITROGEN 33.2 mg/dL (7-18)
[2024-04-26 08:17] LABS: CALCIUM 7.9 mg/dL (8.5-10.1); CREATININE 1.6 mg/dL (0.55-1.3)
[2024-04-26 08:18] LABS: BILIRUBIN,TOTAL 0.6 mg/dL (0.2-1)
[2024-04-26 08:19] LABS: TOT PROT 6.1 g/dl (6.4-8.2)
[2024-04-26] MEDS: ASPIRIN 81 MG CHEWABLE TABLETS PO SCH (09:19)
[2024-04-26] MEDS: amLODIPine BESYLATE 10 MG TABLET (FP) PO SCH (09:19)
[2024-04-26] MEDS: VALSARTAN 80 MG TABLET PO SCH (09:19)
[2024-04-26] MEDS: FERROUS SO4 325 MG TABLET (FP) PO SCH (09:19)
[2024-04-26] MEDS: LIDOCAINE 4% PATCH TP SCH (09:19)
[2024-04-26] MEDS: busPIRone HCL 10 MG TABLET (FP) PO SCH (09:19)
[2024-04-26] MEDS: CEFTRIAXONE 1 GM in DEXTROSE 5%-WATER - 50 ML IVPB SCH (09:20)
[2024-04-26] MEDS: PANTOPRAZOLE 40 MG TABLET PO SCH (09:20)
[2024-04-26] MEDS ORDERED: FUROSEMIDE 40 MG TABLET (FP) PO SCH (10:00)
[2024-04-26 16:24] LABS: MAGNESIUM 2.1 mg/dL (1.8-2.4)
[2024-04-27 07:41] LABS: BASO % 0.5 % (0-2.0); EOS % 2.9 % (0-4.5); HEMATOCRIT 29.6 % (32.4-45.2); HEMOGLOBIN 9.8 GM/dL (10.7-15.3); LYMPH % 26.4 % (8-40); MCH 21.9 pg (25.7-33.7); MEAN CELL VOLUME 66.4 fl (80-96); MEAN PLT VOLUME 8.8 fl (7.5-11.1); MONO % 6.3 % (3.8-10.2); NEUT % 63.9 % (42.8-82.8); PLATELET COUNT 252 10^3/uL (134-434); RBC 4.45 M/mm3 (3.60-5.2); RDW 16.7 % (11.6-15.6); WHITE BLOOD COUNT 6.6 K/mm3 (4.0-10.0)
[2024-04-27 07:51] LABS: POTASSIUM 4.5 mmol/L (3.5-5.1)
[2024-04-27 08:05] LABS: ALBUMIN 2.8 g/dl (3.4-5.0); CALCIUM 8.1 mg/dL (8.5-10.1)
[2024-04-27 08:06] LABS: BLOOD UREA NITROGEN 34.7 mg/dL (7-18)
[2024-04-27 08:10] LABS: BILIRUBIN,TOTAL 0.3 mg/dL (0.2-1); CREATININE 1.6 mg/dL (0.55-1.3); TOT PROT 5.7 g/dl (6.4-8.2)
[2024-04-27] MEDS ORDERED: LIRAGLUTIDE 0.6 MG/0.1 ML PEN.INJCTR SQ SCH (10:00)
[2024-04-27] MEDS: ASPIRIN COATED 81 MG TABLET.EC PO SCH (10:20)
[2024-04-27] MEDS ORDERED: MAGNESIUM HYDROX 2400MG/30ML ORAL SUSPENSION 30 ML CUP PO PRN (11:06)
[2024-04-27] MEDS: ACETAMINOPHEN 1000 MG/100 ML BAG IVPB ONE (11:16)
[2024-04-27] MEDS: MAGNESIUM HYDROX 2400MG/30ML ORAL SUSPENSION 30 ML CUP PO SCH (11:38)
[2024-04-27] MEDS: CELECOXIB 100 MG CAPSULE PO ONE (12:30)
[2024-04-27] MEDS ORDERED: ACETAMINOPHEN 1000 MG/100 ML BAG IVPB PRN (20:00)
[2024-04-28 08:38] LABS: HEMOGLOBIN 9.8 GM/dL (10.7-15.3); MCH 21.9 pg (25.7-33.7); MCHC 32.8 g/dl (32.0-36.0); MEAN CELL VOLUME 66.9 fl (80-96); PLATELET COUNT 259 10^3/uL (134-434); RBC 4.48 M/mm3 (3.60-5.2); RDW 17.1 % (11.6-15.6); WHITE BLOOD COUNT 6.2 K/mm3 (4.0-10.0)
[2024-04-28 08:54] LABS: POTASSIUM 4.7 mmol/L (3.5-5.1)
[2024-04-28 09:03] LABS: ALBUMIN 2.9 g/dl (3.4-5.0); BLOOD UREA NITROGEN 30.1 mg/dL (7-18); CALCIUM 8.1 mg/dL (8.5-10.1)
[2024-04-28 09:06] LABS: CREATININE 1.5 mg/dL (0.55-1.3)
[2024-04-28 09:08] LABS: BILIRUBIN,TOTAL 0.3 mg/dL (0.2-1); TOT PROT 6.1 g/dl (6.4-8.2)
[2024-04-28 13:08] LABS: N-TERMINAL BNP 1214.4 pg/ml (5-450)
[2024-04-28] MEDS: SODIUM CHLORIDE 1,000 ML IV SCH (13:29)
[2024-04-28] MEDS: ACETAMINOPHEN 325 MG TABLET (FP) PO ONE (18:26)
[2024-04-29 08:21] LABS: HEMATOCRIT 27.3 % (32.4-45.2); HEMOGLOBIN 9.1 GM/dL (10.7-15.3); MCH 21.9 pg (25.7-33.7); MCHC 33.3 g/dl (32.0-36.0); MEAN CELL VOLUME 65.8 fl (80-96); MEAN PLT VOLUME 8.6 fl (7.5-11.1); PLATELET COUNT 244 10^3/uL (134-434); RBC 4.15 M/mm3 (3.60-5.2); RDW 16.8 % (11.6-15.6)
[2024-04-29 08:43] LABS: POTASSIUM 4.7 mmol/L (3.5-5.1)
[2024-04-29 08:48] LABS: CALCIUM 8.1 mg/dL (8.5-10.1)
[2024-04-29 08:50] LABS: ALBUMIN 2.8 g/dl (3.4-5.0); BLOOD UREA NITROGEN 27.7 mg/dL (7-18); MAGNESIUM 2.6 mg/dL (1.8-2.4)
[2024-04-29 08:51] LABS: PHOSPHOROUS 3.8 mg/dL (2.5-4.9)
[2024-04-29 08:52] LABS: CREATININE 1.3 mg/dL (0.55-1.3)
[2024-04-29 08:53] LABS: BILIRUBIN,TOTAL 0.5 mg/dL (0.2-1); TOT PROT 5.5 g/dl (6.4-8.2)
[2024-04-29] MEDS: oxyCODONE HCL 5 MG TABLET PO PRN (09:45)
[2024-04-29] MEDS: hydrALAZINE HCL 10 MG TABLET PO ONE (21:23)
[2024-04-29] MEDS ORDERED: hydrALAZINE HCL 10 MG TABLET PO SCH (22:00)
[2024-04-29] MEDS ORDERED: ALBUTEROL SO4 HFA INHALER IH PRN (22:38)
[2024-04-29] MEDS ORDERED: ALBUTEROL SO4 2.5/IPRATROPIUM 0.5 INH SOL 3 ML VIAL.NEB. NEB PRN (22:38)
[2024-04-29] MEDS ORDERED: oxyCODONE HCL 5 MG TABLET PO PRN (22:38)
[2024-04-30] MEDS: INSULIN ASPART SLIDING SCALE (NOVOLOG) 1 VIAL SQ SCH (06:58)
[2024-04-30 09:35] LABS: HEMATOCRIT 30.4 % (32.4-45.2); HEMOGLOBIN 9.9 GM/dL (10.7-15.3); MCH 21.9 pg (25.7-33.7); MCHC 32.6 g/dl (32.0-36.0); MEAN CELL VOLUME 67.1 fl (80-96); MEAN PLT VOLUME 8.3 fl (7.5-11.1); PLATELET COUNT 279 10^3/uL (134-434); RBC 4.54 M/mm3 (3.60-5.2); RDW 17.4 % (11.6-15.6); WHITE BLOOD COUNT 7.9 K/mm3 (4.0-10.0)
[2024-04-30 10:20] LABS: POTASSIUM 5.3 mmol/L (3.5-5.1)
[2024-04-30 10:26] LABS: BLOOD UREA NITROGEN 28.6 mg/dL (7-18); CALCIUM 9.1 mg/dL (8.5-10.1); MAGNESIUM 3.1 mg/dL (1.8-2.4)
[2024-04-30 10:29] LABS: CREATININE 1.5 mg/dL (0.55-1.3); PHOSPHOROUS 3.6 mg/dL (2.5-4.9)
[2024-04-30] MEDS: MEMANTINE HCL 5 MG TABLET (UD) PO SCH (11:00)
[2024-04-30] MEDS: PANTOPRAZOLE 40 MG TABLET PO SCH (11:00)
[2024-04-30] MEDS: LIDOCAINE 4% PATCH TP SCH (11:00)
[2024-04-30] MEDS: ASPIRIN COATED 81 MG TABLET.EC PO SCH (11:00)
[2024-04-30] MEDS: amLODIPine BESYLATE 10 MG TABLET (FP) PO SCH (11:00)
[2024-04-30] MEDS: busPIRone HCL 10 MG TABLET (FP) PO SCH (11:00)
[2024-04-30] MEDS: HEPARIN NA (PORCINE) 5,000 UNITS/ML 1ML VIAL SQ SCH (11:01)
[2024-04-30] MEDS: LOSARTAN POTASSIUM 50 MG TABLET PO SCH (11:01)
[2024-04-30] MEDS: MAGNESIUM HYDROX 2400MG/30ML ORAL SUSPENSION 30 ML CUP PO SCH (11:01)
[2024-04-30] MEDS: BUDESONIDE/FORMETEROL FUMARATE 80/4.5 mcg INHALER IH SCH (12:30)
[2024-04-30] MEDS ORDERED: SODIUM CHLORIDE 1,000 ML IV SCH (17:00)
[2024-04-30] MEDS: SODIUM CHLORIDE 500 ML IV STA (17:05)
[2024-04-30] MEDS: SODIUM CHLORIDE 1,000 ML IV SCH (18:42)
[2024-04-30] MEDS: INSULIN (LEVEMIR) 100 UNITS/ML UNITS SQ SCH (21:39)
[2024-04-30] MEDS: MELATONIN 1 MG TABLET PO SCH (21:42)
[2024-04-30] MEDS: ATORVASTATIN CA 20 MG TABLET (FP) PO SCH (21:43)
[2024-04-30] MEDS: MIRTAZAPINE 15 MG TABLET (FP) PO SCH (21:45)
[2024-04-30] MEDS: LIDOCAINE PATCH REMOVAL MC SCH (23:57)
[2024-05-01 12:24] LABS: POTASSIUM 5.1 mmol/L (3.5-5.1)
[2024-05-01 12:25] LABS: CALCIUM 8.4 mg/dL (8.5-10.1)
[2024-05-01 12:26] LABS: BLOOD UREA NITROGEN 25.2 mg/dL (7-18); MAGNESIUM 2.8 mg/dL (1.8-2.4)
[2024-05-01 12:29] LABS: CREATININE 1.4 mg/dL (0.55-1.3); PHOSPHOROUS 2.8 mg/dL (2.5-4.9)
[2024-05-04 08:39] VITALS: BP 134/63; PULSE 79; RESP 19; TEMP 98.5
== END 2024-05-04 14:54 | disposition home or self-care (01) | DRG 74 ==
LOC: JER 08:47 → JERBED 13:18 → J4W 21:15 → J5S 04-29 22:44
PROVIDERS: ADMIT Internal Medicine
DX: M54.12 Radiculopathy, cervical region (principal); I13.0 Hypertensive heart and chronic kidney disease with heart failure and stage 1 through stage 4 chronic kidney disease, or unspecified chronic kidney disease; I50.32 Chronic diastolic (congestive) heart failure; N17.9 Acute kidney failure, unspecified; N39.0 Urinary tract infection, site not specified; M48.02 Spinal stenosis, cervical region; J44.9 Chronic obstructive pulmonary disease, unspecified; I25.10 Atherosclerotic heart disease of native coronary artery without angina pectoris; F41.9 Anxiety disorder, unspecified; D50.9 Iron deficiency anemia, unspecified; R00.1 Bradycardia, unspecified; G30.9 Alzheimer's disease, unspecified; F02.80 Dementia in other diseases classified elsewhere, unspecified severity, without behavioral disturbance, psychotic disturbance, mood disturbance, and anxiety; E11.22 Type 2 diabetes mellitus with diabetic chronic kidney disease; N18.30 Chronic kidney disease, stage 3 unspecified; F32.A Depression, unspecified
CPT/HCPCS: 36415; 70450-TC; 71045-TC-FY; 72125-TC; 72141-TC; 72170-TC-FY; 80048; 80053; 80061; 81003; 82728; 82962; 83036; 83540; 83550; 83735; 83880; 84100; 84443; 84484; 85025; 85027; 87086; 87635; 93005; 93010; 93306-TC; 93880-TC; 97116-GP; 97162-GP; 99285-25; J0131; J1644

== ENCOUNTER 2024-07-16 22:03 | Inpatient (IN) | payer OTHER ==
[2024-07-16] MEDS ORDERED: ACETAMINOPHEN INJECTION 100 ML ONE (23:07)
[2024-07-16] MEDS: ACETAMINOPHEN 1000 MG/100 ML BAG IVPB ONE (23:34)
[2024-07-16 23:43] LABS: BASO % 0.9 % (0-2.0); EOS % 2.7 % (0-4.5); HEMATOCRIT 32.6 % (32.4-45.2); HEMOGLOBIN 10.6 GM/dL (10.7-15.3); LYMPH % 19.1 % (8-40); MCH 21.5 pg (25.7-33.7); MCHC 32.6 g/dl (32.0-36.0); MEAN PLT VOLUME 8.6 fl (7.5-11.1); MONO % 10.2 % (3.8-10.2); NEUT % 67.1 % (42.8-82.8); PLATELET COUNT 302 10^3/uL (134-434); RBC 4.94 M/mm3 (3.60-5.2); RDW 16.7 % (11.6-15.6); WHITE BLOOD COUNT 8.8 K/mm3 (4.0-10.0)
[2024-07-16 23:58] LABS: INR 1.02 (0.83-1.09); PROTHROMBIN TIME (PATIENT) 11.7 SEC (9.7-13.0)
[2024-07-17 00:01] LABS: POTASSIUM 5.3 mmol/L (3.5-5.1)
[2024-07-17 00:01] LABS: ACTIVATED PTT 30.4 SECONDS (25.2-36.5)
[2024-07-17 00:05] LABS: ALBUMIN 3.5 g/dl (3.4-5.0); BLOOD UREA NITROGEN 31.8 mg/dL (7-18); CALCIUM 8.7 mg/dL (8.5-10.1); MAGNESIUM 2.2 mg/dL (1.8-2.4)
[2024-07-17 00:08] LABS: CREATININE 2.2 mg/dL (0.55-1.3)
[2024-07-17 00:09] LABS: BILIRUBIN,TOTAL 0.4 mg/dL (0.2-1); PHOSPHOROUS 4.6 mg/dL (2.5-4.9)
[2024-07-17 00:10] LABS: TOT PROT 6.7 g/dl (6.4-8.2)
[2024-07-17 00:13] LABS: N-TERMINAL BNP 662.7 pg/ml (5-450)
[2024-07-17 01:39] LABS: ANISOCYTOSIS 2+; OVALOCYTE 1+
[2024-07-17] MEDS: SODIUM CHLORIDE 1,000 ML IV SCH ×2 (06:59→20:27)
[2024-07-17 08:13] LABS: HEMATOCRIT 32.9 % (32.4-45.2); HEMOGLOBIN 10.8 GM/dL (10.7-15.3); MCH 21.7 pg (25.7-33.7); MCHC 32.8 g/dl (32.0-36.0); MEAN CELL VOLUME 66.2 fl (80-96); MEAN PLT VOLUME 8.4 fl (7.5-11.1); PLATELET COUNT 298 10^3/uL (134-434); RBC 4.97 M/mm3 (3.60-5.2); RDW 16.8 % (11.6-15.6); WHITE BLOOD COUNT 6.6 K/mm3 (4.0-10.0)
[2024-07-17 08:31] LABS: POTASSIUM 4.5 mmol/L (3.5-5.1)
[2024-07-17 08:37] LABS: CALCIUM 8.9 mg/dL (8.5-10.1); MAGNESIUM 2.3 mg/dL (1.8-2.4)
[2024-07-17 08:39] LABS: PHOSPHOROUS 4.5 mg/dL (2.5-4.9)
[2024-07-17] MEDS: INSULIN ASPART SLIDING SCALE (NOVOLOG) 1 VIAL SQ SCH ×2 (08:46→21:45)
[2024-07-17] MEDS ORDERED: ENOXAPARIN NA (PORCINE) 40 MG/0.4 ML DISP.SYRIN SQ SCH (10:00)
[2024-07-17] MEDS ORDERED: PANTOPRAZOLE 40 MG TABLET PO ONE (11:32)
[2024-07-17] MEDS ORDERED: ASPIRIN 81 MG CHEWABLE TABLETS ONE (11:33)
[2024-07-17] MEDS ORDERED: amLODIPine BESYLATE 10 MG TABLET (FP) ONE (11:33)
[2024-07-17] MEDS: FERROUS SO4 325 MG TABLET (FP) PO SCH (11:56)
[2024-07-17] MEDS: amLODIPine BESYLATE 10 MG TABLET (FP) PO SCH (11:56)
[2024-07-17] MEDS: ASPIRIN 81 MG CHEWABLE TABLETS PO SCH (11:56)
[2024-07-17] MEDS: PANTOPRAZOLE 40 MG TABLET PO SCH (11:56)
[2024-07-17] MEDS: busPIRone HCL 10 MG TABLET (FP) PO SCH (11:56)
[2024-07-17] MEDS ORDERED: INSULIN ASPART SLIDING SCALE (NOVOLOG) 1 VIAL SQ ONE ×2 (11:58→16:48)
[2024-07-17] MEDS ORDERED: ALBUTEROL SO4 HFA INHALER IH PRN (16:12)
[2024-07-17 16:25] VITALS: BMI 27.9
[2024-07-17] MEDS: ALBUTEROL SO4 2.5/IPRATROPIUM 0.5 INH SOL 3 ML VIAL.NEB. NEB SCH (20:05)
[2024-07-17] MEDS: ACETAMINOPHEN 1000 MG/100 ML BAG IVPB ONE (20:54)
[2024-07-17] MEDS: MIRTAZAPINE 15 MG TABLET (FP) PO SCH (21:39)
[2024-07-17] MEDS: ATORVASTATIN CA 20 MG TABLET (FP) PO SCH (21:39)
[2024-07-17] MEDS: BUDESONIDE/FORMOTEROL FUMARATE 80-4.5 MCG (10.3 GM INHALER) IH SCH (21:51)
[2024-07-17] MEDS ORDERED: ATORVASTATIN CA 20 MG TABLET (FP) PO SCH (22:00)
[2024-07-18 07:32] LABS: BASO % 0.3 % (0-2.0); EOS % 4.3 % (0-4.5); HEMATOCRIT 30.1 % (32.4-45.2); HEMOGLOBIN 9.8 GM/dL (10.7-15.3); LYMPH % 22.2 % (8-40); MCH 21.8 pg (25.7-33.7); MCHC 32.6 g/dl (32.0-36.0); MEAN PLT VOLUME 8.7 fl (7.5-11.1); MONO % 6.4 % (3.8-10.2); NEUT % 66.8 % (42.8-82.8); PLATELET COUNT 292 10^3/uL (134-434); RDW 16.5 % (11.6-15.6); WHITE BLOOD COUNT 8.3 K/mm3 (4.0-10.0)
[2024-07-18 08:09] LABS: POTASSIUM 4.8 mmol/L (3.5-5.1)
[2024-07-18 08:21] LABS: CALCIUM 8.4 mg/dL (8.5-10.1)
[2024-07-18 08:22] LABS: BLOOD UREA NITROGEN 34.6 mg/dL (7-18)
[2024-07-18 08:24] LABS: CREATININE 1.9 mg/dL (0.55-1.3)
[2024-07-18] MEDS: amLODIPine BESYLATE 10 MG TABLET (FP) PO SCH (09:41)
[2024-07-18] MEDS: ASPIRIN 81 MG CHEWABLE TABLETS PO SCH (09:41)
[2024-07-18] MEDS: busPIRone HCL 10 MG TABLET (FP) PO SCH (09:41)
[2024-07-18] MEDS: PANTOPRAZOLE 40 MG TABLET PO SCH (09:41)
[2024-07-18] MEDS: FERROUS SO4 325 MG TABLET (FP) PO SCH (09:41)
[2024-07-18] MEDS: MAG HYDROX/AL HYDROX/SIMETH 30 ML UNIT-DOSE CUP PO PRN (13:34)
[2024-07-18] MEDS: ENOXAPARIN NA (PORCINE) 40 MG/0.4 ML DISP.SYRIN SQ SCH (13:37)
[2024-07-18] MEDS: ENOXAPARIN NA (PORCINE) 30 MG/0.3 ML DISP.SYRIN SQ SCH (15:20)
[2024-07-19 08:05] LABS: POTASSIUM 4.7 mmol/L (3.5-5.1)
[2024-07-19 08:09] LABS: BLOOD UREA NITROGEN 32.4 mg/dL (7-18); CALCIUM 8.3 mg/dL (8.5-10.1)
[2024-07-19 08:12] LABS: CREATININE 1.8 mg/dL (0.55-1.3)
[2024-07-20] MEDS ORDERED: INSULIN ASPART SLIDING SCALE (NOVOLOG) 1 VIAL SQ ONE (06:40)
[2024-07-20 09:46] LABS: CALCIUM 8.2 mg/dL (8.5-10.1)
[2024-07-20 09:47] LABS: BLOOD UREA NITROGEN 31.6 mg/dL (7-18)
[2024-07-20 09:50] LABS: CREATININE 1.9 mg/dL (0.55-1.3)
[2024-07-20] MEDS ORDERED: SODIUM CHLORIDE 1,000 ML IV SCH (13:45)
[2024-07-20] MEDS: INSULIN (LEVEMIR) 100 UNITS/ML UNITS SQ SCH (21:58)
[2024-07-20] MEDS ORDERED: INSULIN (LEVEMIR) 100 UNITS/ML UNITS SQ SCH (22:00)
[2024-07-21 03:45] VITALS: TEMP 98.4
[2024-07-21] MEDS ORDERED: SODIUM CHLORIDE 1,000 ML IV SCH (07:52)
[2024-07-21] MEDS ORDERED: MAG HYDROX/AL HYDROX/SIMETH 30 ML UNIT-DOSE CUP PO PRN (07:52)
[2024-07-21] MEDS ORDERED: ALBUTEROL SO4 HFA INHALER IH PRN (07:52)
[2024-07-21] MEDS: ALBUTEROL SO4 2.5/IPRATROPIUM 0.5 INH SOL 3 ML VIAL.NEB. NEB SCH (08:22)
[2024-07-21 08:58] LABS: BASO % 0.2 % (0-2.0); EOS % 3.1 % (0-4.5); HEMATOCRIT 30.9 % (32.4-45.2); HEMOGLOBIN 9.9 GM/dL (10.7-15.3); LYMPH % 21.9 % (8-40); MCH 21.4 pg (25.7-33.7); MEAN CELL VOLUME 66.8 fl (80-96); MEAN PLT VOLUME 8.6 fl (7.5-11.1); MONO % 5.2 % (3.8-10.2); NEUT % 69.6 % (42.8-82.8); PLATELET COUNT 322 10^3/uL (134-434); RBC 4.63 M/mm3 (3.60-5.2); RDW 16.8 % (11.6-15.6); WHITE BLOOD COUNT 9.1 K/mm3 (4.0-10.0)
[2024-07-21] MEDS: amLODIPine BESYLATE 10 MG TABLET (FP) PO SCH (09:23)
[2024-07-21] MEDS: FERROUS SO4 325 MG TABLET (FP) PO SCH (09:23)
[2024-07-21] MEDS: ASPIRIN 81 MG CHEWABLE TABLETS PO SCH (09:23)
[2024-07-21] MEDS: ENOXAPARIN NA (PORCINE) 30 MG/0.3 ML DISP.SYRIN SQ SCH (09:24)
[2024-07-21] MEDS: PANTOPRAZOLE 40 MG TABLET PO SCH (09:24)
[2024-07-21] MEDS: busPIRone HCL 10 MG TABLET (FP) PO SCH (09:24)
[2024-07-21 09:42] LABS: ANISOCYTOSIS 0; MACROCYTOSIS 0
[2024-07-21 12:25] LABS: POTASSIUM 4.8 mmol/L (3.5-5.1)
[2024-07-21 12:26] LABS: CALCIUM 8.6 mg/dL (8.5-10.1)
[2024-07-21 12:27] LABS: BLOOD UREA NITROGEN 26.1 mg/dL (7-18)
[2024-07-21 12:30] LABS: CREATININE 1.6 mg/dL (0.55-1.3)
[2024-07-21] MEDS: BUDESONIDE/FORMOTEROL FUMARATE 80-4.5 MCG (10.3 GM INHALER) IH SCH (12:53)
[2024-07-21] MEDS: INSULIN ASPART SLIDING SCALE (NOVOLOG) 1 VIAL SQ SCH (12:58)
[2024-07-21 16:38] VITALS: BP 131/53; PULSE 60; RESP 18
[2024-07-21] MEDS ORDERED: MIRTAZAPINE 15 MG TABLET (FP) PO SCH (22:00)
[2024-07-21] MEDS ORDERED: ATORVASTATIN CA 20 MG TABLET (FP) PO SCH (22:00)
== END 2024-07-21 18:07 | DRG 683 ==
LOC: JER 22:03 → JERBED 07-17 01:53 → OBSVTOIN 07-17 01:53 → J8W 07-17 15:18 → J4W 07-17 18:05 → J8W 07-20 18:25
PROVIDERS: ADMIT Internal Medicine; ATTEND Internal Medicine
DX: N17.9 Acute kidney failure, unspecified (principal); I13.0 Hypertensive heart and chronic kidney disease with heart failure and stage 1 through stage 4 chronic kidney disease, or unspecified chronic kidney disease; I50.32 Chronic diastolic (congestive) heart failure; I25.10 Atherosclerotic heart disease of native coronary artery without angina pectoris; K21.9 Gastro-esophageal reflux disease without esophagitis; E78.00 Pure hypercholesterolemia, unspecified; J45.909 Unspecified asthma, uncomplicated; E11.9 Type 2 diabetes mellitus without complications; M54.12 Radiculopathy, cervical region; R07.81 Pleurodynia; R10.13 Epigastric pain; J44.9 Chronic obstructive pulmonary disease, unspecified; I44.0 Atrioventricular block, first degree; G30.9 Alzheimer's disease, unspecified; F02.80 Dementia in other diseases classified elsewhere, unspecified severity, without behavioral disturbance, psychotic disturbance, mood disturbance, and anxiety; R59.9 Enlarged lymph nodes, unspecified; E11.22 Type 2 diabetes mellitus with diabetic chronic kidney disease; N18.32 Chronic kidney disease, stage 3b; Z95.2 Presence of prosthetic heart valve; Z95.5 Presence of coronary angioplasty implant and graft
CPT/HCPCS: 0241U-QW; 36415; 70450-TC; 71250-TC; 72125-TC; 72128-TC; 72170-TC-FY; 73502-TC-LT-FY; 80048; 80053; 82962; 83036; 83605; 83690; 83735; 83880; 84100; 84484; 85025; 85027; 85610; 85730; 86850; 86900; 86901; 93005; 93010; 93306-TC; 94640; 97116-GP; 97161-GP; 99285-25; J0131

== ENCOUNTER 2024-09-10 17:17 | Emergency (ER) | payer OTHER ==
[2024-09-10 17:45] VITALS: RESP 20; BMI 27.2
[2024-09-10 18:20] LABS: BASO % 0.5 % (0-2.0); EOS % 2.5 % (0-4.5); HEMATOCRIT 32.8 % (32.4-45.2); HEMOGLOBIN 10.7 GM/dL (10.7-15.3); LYMPH % 17.9 % (8-40); MCH 22.1 pg (25.7-33.7); MCHC 32.6 g/dl (32.0-36.0); MEAN CELL VOLUME 67.7 fl (80-96); MEAN PLT VOLUME 8.2 fl (7.5-11.1); MONO % 6.8 % (3.8-10.2); NEUT % 72.3 % (42.8-82.8); PLATELET COUNT 310 10^3/uL (134-434); RBC 4.84 M/mm3 (3.60-5.2); RDW 16.9 % (11.6-15.6); WHITE BLOOD COUNT 9.2 K/mm3 (4.0-10.0)
[2024-09-10 18:29] LABS: INR 0.89 (0.83-1.09); PROTHROMBIN TIME (PATIENT) 10.3 SEC (9.7-13.0)
[2024-09-10 18:32] LABS: ACTIVATED PTT 25.5 SECONDS (25.2-36.5)
[2024-09-10] MEDS ORDERED: ACETAMINOPHEN INJECTION 100 ML ONE (18:32)
[2024-09-10] MEDS ORDERED: MAG HYDROX/AL HYDROX/SIMETH 30 ML UNIT-DOSE CUP ONE (18:33)
[2024-09-10] MEDS ORDERED: FAMOTIDINE 20 MG/50 ML IVPB 20 MG/50 ML MG IVPB ONE (18:33)
[2024-09-10] MEDS: MAG HYDROX/AL HYDROX/SIMETH 30 ML UNIT-DOSE CUP PO ONE (18:38)
[2024-09-10 18:44] LABS: POTASSIUM 3.9 mmol/L (3.5-5.1)
[2024-09-10 18:47] LABS: CALCIUM 8.7 mg/dL (8.5-10.1)
[2024-09-10 18:48] LABS: BLOOD UREA NITROGEN 14.8 mg/dL (7-18); MAGNESIUM 2.3 mg/dL (1.8-2.4)
[2024-09-10 18:51] LABS: CREATININE 1.2 mg/dL (0.55-1.3)
[2024-09-10 18:53] LABS: BILIRUBIN,TOTAL 0.3 mg/dL (0.2-1); TOT PROT 5.9 g/dl (6.4-8.2)
[2024-09-10] MEDS: FAMOTIDINE 20 MG/50 ML IVPB 20 MG/50 ML MG IVPB ONE (19:00)
[2024-09-10] MEDS: ACETAMINOPHEN 1000 MG/100 ML BAG IVPB ONE (19:08)
[2024-09-10 19:20] LABS: URINE APPEARANCE CLEAR; URINE BILIRUBIN NEGATIVE (NEGATIVE); URINE COLOR YELLOW; URINE GLUCOSE (UA) 3+ (NEGATIVE); URINE KETONE NEGATIVE (NEGATIVE); URINE LEUK ESTERASE NEGATIVE (NEGATIVE); URINE NITRITE NEGATIVE (NEGATIVE); URINE PROTEIN NEGATIVE (NEGATIVE)
[2024-09-10] MEDS: ACETAMINOPHEN 500 MG TABLET (FP) PO ONE (19:39)
[2024-09-10 19:47] LABS: EPI CELLS 6.1 /uL (0-25.1); HYALINE CASTS 0.13 /uL (0-3.1); URINE BACTERIA 6.6 /uL (0-1359); URINE RBC 24.6 /uL (0-23.9); URINE WBC 1.9 /uL (0-25.8)
[2024-09-10 22:08] VITALS: BP 155/96; PULSE 90; TEMP 98.3
== END 2024-09-11 00:01 | disposition home or self-care (01) ==
LOC: JER 17:17
PROC: 3E033GC Introduction of Other Therapeutic Substance into Peripheral Vein, Percutaneous Approach (ICD-10-PCS; principal; 2024-09-10)
PROC: 3E033NZ Introduction of Analgesics, Hypnotics, Sedatives into Peripheral Vein, Percutaneous Approach (ICD-10-PCS; 2024-09-10)
DX: R10.13 Epigastric pain (principal); R10.11 Right upper quadrant pain; Z20.822 Contact with and (suspected) exposure to COVID-19
CPT/HCPCS: 0241U-QW; 36415; 71045-TC-FY; 72170-TC-FY; 73502-TC-RT-FY; 76705-TC; 80053; 81003; 82550; 83690; 83735; 83880; 84484; 85025; 85610; 85730; 87086; 93005; 93010; 99285-25; J0131

== ENCOUNTER 2024-10-20 20:43 | Inpatient (IN) | payer OTHER ==
[2024-10-20] MEDS ORDERED: ALBUTEROL SO4 2.5/IPRATROPIUM 0.5 INH SOL 3 ML VIAL.NEB. NEB ONE (22:08)
[2024-10-20] MEDS ORDERED: ACETAMINOPHEN INJECTION 100 ML ONE (22:09)
[2024-10-20] MEDS ORDERED: methylPREDNISolone NA SUCC 125 MG/2 ML VIAL ONE (22:09)
[2024-10-20] MEDS ORDERED: AZITHROMYCIN IVPB 500 MG/250 ML BAG IVPB ONE (22:09)
[2024-10-20 22:18] LABS: VENOUS BASE EXCESS -0.6 mmol/L (-2-2); VENOUS O2 SATURATION 57.9 % (70-80); VENOUS PCO2 46.7 mmHg (38-52); VENOUS PH 7.352 (7.310-7.410)
[2024-10-20 22:22] LABS: BASO % 1.1 % (0-2.0); EOS % 2.6 % (0-4.5); HEMATOCRIT 39.3 % (32.4-45.2); HEMOGLOBIN 12.2 GM/dL (10.7-15.3); LYMPH % 27.2 % (8-40); MCHC 31.1 g/dl (32.0-36.0); MEAN CELL VOLUME 67.5 fl (80-96); MEAN PLT VOLUME 8.6 fl (7.5-11.1); MONO % 7.8 % (3.8-10.2); NEUT % 61.3 % (42.8-82.8); PLATELET COUNT 294 10^3/uL (134-434); RBC 5.82 M/mm3 (3.60-5.2); RDW 15.8 % (11.6-15.6); WHITE BLOOD COUNT 8.5 K/mm3 (4.0-10.0)
[2024-10-20] MEDS: methylPREDNISolone NA SUCC 125 MG/2 ML VIAL IVPUSH ONE (22:23)
[2024-10-20] MEDS: ACETAMINOPHEN 1000 MG/100 ML BAG IVPB ONE (22:23)
[2024-10-20] MEDS: AZITHROMYCIN IVPB 500 MG in DEXTROSE 5%-WATER - 250 ML IVPB ONE (22:23)
[2024-10-20] MEDS: ALBUTEROL SO4 2.5/IPRATROPIUM 0.5 INH SOL 3 ML VIAL.NEB. NEB SCH (22:24)
[2024-10-20 22:30] LABS: INR 0.87 (0.83-1.09)
[2024-10-20 22:33] LABS: ACTIVATED PTT 30.4 SECONDS (25.2-36.5)
[2024-10-20 22:59] LABS: POTASSIUM 3.7 mmol/L (3.5-5.1)
[2024-10-20 23:01] LABS: ALBUMIN 3.4 g/dl (3.4-5.0); BLOOD UREA NITROGEN 10.6 mg/dL (7-18); CALCIUM 8.4 mg/dL (8.5-10.1)
[2024-10-20 23:04] LABS: CREATININE 1.1 mg/dL (0.55-1.3)
[2024-10-20 23:06] LABS: BILIRUBIN,TOTAL 0.3 mg/dL (0.2-1); TOT PROT 7.1 g/dl (6.4-8.2)
[2024-10-20 23:07] LABS: ANISOCYTOSIS 1+; MACROCYTOSIS 0
[2024-10-20 23:16] LABS: OVALOCYTE 1+
[2024-10-20] MEDS ORDERED: FUROSEMIDE 40 MG/4 ML INJECTABLE VIAL ONE (23:36)
[2024-10-20] MEDS: FUROSEMIDE 40 MG/4 ML INJECTABLE VIAL IVPUSH ONE (23:52)
[2024-10-20] MEDS ORDERED: OSELTAMIVIR PHOSPHATE 75 MG CAPSULE ONE (23:53)
[2024-10-20] MEDS: OSELTAMIVIR PHOSPHATE 75 MG CAPSULE PO ONE (23:54)
[2024-10-21] MEDS ORDERED: ACETAMINOPHEN 325 MG TABLET (FP) ONE (03:22)
[2024-10-21] MEDS: ALBUTEROL SO4 2.5/IPRATROPIUM 0.5 INH SOL 3 ML VIAL.NEB. NEB PRN (03:25)
[2024-10-21] MEDS: ACETAMINOPHEN 500 MG TABLET (FP) PO ONE (03:25)
[2024-10-21] MEDS ORDERED: ALBUTEROL SO4 2.5/IPRATROPIUM 0.5 INH SOL 3 ML VIAL.NEB. NEB ONE (03:26)
[2024-10-21] MEDS: INSULIN ASPART SLIDING SCALE (NOVOLOG) 1 VIAL SQ SCH (06:01)
[2024-10-21 07:59] LABS: BASO % 0.1 % (0-2.0); HEMATOCRIT 37.8 % (32.4-45.2); HEMOGLOBIN 12.3 GM/dL (10.7-15.3); LYMPH % 7.9 % (8-40); MCH 21.7 pg (25.7-33.7); MCHC 32.5 g/dl (32.0-36.0); MEAN CELL VOLUME 66.7 fl (80-96); MEAN PLT VOLUME 8.8 fl (7.5-11.1); MONO % 2.5 % (3.8-10.2); NEUT % 89.5 % (42.8-82.8); PLATELET COUNT 289 10^3/uL (134-434); RBC 5.67 M/mm3 (3.60-5.2); RDW 15.7 % (11.6-15.6); WHITE BLOOD COUNT 5.5 K/mm3 (4.0-10.0)
[2024-10-21 08:20] LABS: BLOOD UREA NITROGEN 14.6 mg/dL (7-18); CALCIUM 8.7 mg/dL (8.5-10.1); MAGNESIUM 2.1 mg/dL (1.8-2.4)
[2024-10-21 08:24] LABS: CREATININE 1.3 mg/dL (0.55-1.3)
[2024-10-21 08:26] LABS: PHOSPHOROUS 2.7 mg/dL (2.5-4.9)
[2024-10-21] MEDS: ALBUTEROL SO4 2.5/IPRATROPIUM 0.5 INH SOL 3 ML VIAL.NEB. NEB SCH (09:15)
[2024-10-21] MEDS: FUROSEMIDE 20 MG TABLET (FP) PO SCH (11:56)
[2024-10-21] MEDS: LOSARTAN POTASSIUM 25 MG TABLET PO SCH (11:56)
[2024-10-21] MEDS: methylPREDNISolone NA SUCC 40 MG/1 ML VIAL IVPUSH SCH (11:56)
[2024-10-21] MEDS: ENOXAPARIN NA (PORCINE) 40 MG/0.4 ML DISP.SYRIN SQ SCH (11:56)
[2024-10-21] MEDS: busPIRone HCL 10 MG TABLET (FP) PO SCH (11:56)
[2024-10-21] MEDS: FERROUS SO4 325 MG TABLET (FP) PO SCH (11:56)
[2024-10-21] MEDS: PANTOPRAZOLE 40 MG TABLET PO SCH (11:56)
[2024-10-21] MEDS: SPIRONOLACTONE 25 MG TABLET PO SCH (11:56)
[2024-10-21] MEDS: amLODIPine BESYLATE 10 MG TABLET (FP) PO SCH (11:56)
[2024-10-21] MEDS: BUDESONIDE/FORMOTEROL FUMARATE 80-4.5 MCG (10.3 GM INHALER) IH SCH (12:44)
[2024-10-21] MEDS: OSELTAMIVIR PHOSPHATE 30 MG CAPSULE PO SCH (12:49)
[2024-10-21 17:37] VITALS: BMI 33.0
[2024-10-21 18:51] VITALS: RESP 18
[2024-10-21] MEDS ORDERED: INSULIN ASPART SLIDING SCALE (NOVOLOG) 1 VIAL SQ ONE (19:01)
[2024-10-21] MEDS: ALBUTEROL SO4 HFA INHALER IH PRN (19:07)
[2024-10-21] MEDS: MIRTAZAPINE 15 MG TABLET (FP) PO SCH (21:15)
[2024-10-21] MEDS: ATORVASTATIN CA 20 MG TABLET (FP) PO SCH (21:15)
[2024-10-21] MEDS: INSULIN (LEVEMIR) 100 UNITS/ML UNITS SQ SCH (21:15)
[2024-10-21] MEDS: MELATONIN 5 MG TABLETS PO PRN (21:15)
[2024-10-21] MEDS: ACETAMINOPHEN 1000 MG/100 ML BAG IVPB ONE (21:41)
[2024-10-21 22:07] LABS: GLUCOSE,RANDOM 424 mg/dL (74-106)
[2024-10-21 22:31] VITALS: TEMP 98.4
[2024-10-21] MEDS ORDERED: FUROSEMIDE 40 MG/4 ML INJECTABLE VIAL IVPUSH ONE (23:18)
[2024-10-22 09:01] LABS: BASO % 0.1 % (0-2.0); HEMATOCRIT 32.7 % (32.4-45.2); HEMOGLOBIN 10.3 GM/dL (10.7-15.3); LYMPH % 12.5 % (8-40); MCHC 31.6 g/dl (32.0-36.0); MEAN CELL VOLUME 66.4 fl (80-96); MONO % 3.2 % (3.8-10.2); NEUT % 84.2 % (42.8-82.8); PLATELET COUNT 325 10^3/uL (134-434); RBC 4.93 M/mm3 (3.60-5.2); RDW 15.7 % (11.6-15.6); WHITE BLOOD COUNT 7.9 K/mm3 (4.0-10.0)
[2024-10-22 09:54] LABS: BLOOD UREA NITROGEN 22.7 mg/dL (7-18); CALCIUM 8.6 mg/dL (8.5-10.1)
[2024-10-22 09:58] LABS: CREATININE 1.5 mg/dL (0.55-1.3)
[2024-10-22] MEDS: predniSONE 20 MG TABLET (UD) PO SCH (10:33)
[2024-10-22 11:01] VITALS: PULSE 89
[2024-10-22 14:37] VITALS: BP 155/70
== END 2024-10-22 14:43 | DRG 194 ==
LOC: JER 20:43 → JERBED 10-21 01:51 → J8W 10-21 09:55
PROVIDERS: ADMIT Internal Medicine; ATTEND Internal Medicine
DX: J10.1 Influenza due to other identified influenza virus with other respiratory manifestations (principal); I50.32 Chronic diastolic (congestive) heart failure; J44.1 Chronic obstructive pulmonary disease with (acute) exacerbation; E11.9 Type 2 diabetes mellitus without complications; I25.10 Atherosclerotic heart disease of native coronary artery without angina pectoris; I11.0 Hypertensive heart disease with heart failure; J45.909 Unspecified asthma, uncomplicated; D64.9 Anemia, unspecified; G30.9 Alzheimer's disease, unspecified; F02.80 Dementia in other diseases classified elsewhere, unspecified severity, without behavioral disturbance, psychotic disturbance, mood disturbance, and anxiety; Z95.5 Presence of coronary angioplasty implant and graft; Z95.2 Presence of prosthetic heart valve
CPT/HCPCS: 0241U-QW; 36415; 71045-TC-FY; 80048; 80053; 82803; 82947; 82962; 83735; 83880; 84100; 84484; 85025; 85610; 85730; 87077; 87086; 93005; 93010; 93970-TC; 94640; 94761; 99285-25; J0131

== ENCOUNTER 2025-02-21 19:50 | Inpatient (IN) | payer OTHER ==
[2025-02-21] MEDS ORDERED: ALBUTEROL SO4 2.5/IPRATROPIUM 0.5 INH SOL 3 ML VIAL.NEB. NEB ONE (20:48)
[2025-02-21] MEDS: ALBUTEROL SO4 2.5/IPRATROPIUM 0.5 INH SOL 3 ML VIAL.NEB. NEB ONE (20:57)
[2025-02-21 21:34] LABS: VENOUS BASE EXCESS -0.1 mmol/L (-2-2); VENOUS O2 SATURATION 77.3 % (70-80); VENOUS PCO2 40.7 mmHg (38-52); VENOUS PH 7.4 (7.310-7.410)
[2025-02-21 21:41] LABS: ABSOLUTE IMMATURE GRANULOCYTES 0.05 x10^3/uL (0.0-0.031); BASOPHILS # 0.02 x10^3/uL (0.01-0.08); EOSINOPHIL % 3.4 % (0.7-5.8); EOSINOPHILS # 0.27 x10^3/uL (0.04-0.36); HEMATOCRIT 32.3 % (34.1-44.9); HEMOGLOBIN 10.3 g/dL (11.2-15.7); MCHC 31.9 g/dl (32.2-35.5); MEAN CELL VOLUME 66.2 fl (79.4-94.8); MEAN PLT VOLUME 10.4 fl (9.4-12.3); MONOCYTE # 0.54 x10^3/uL (0.24-0.86); MONOCYTE % 6.7 % (4.7-12.5); PLATELET COUNT 238 x10^3/uL (182-369); RDW 16.8 % (12.5-17.0)
[2025-02-21 21:53] LABS: POTASSIUM 4.7 mmol/L (3.5-5.1)
[2025-02-21 21:55] LABS: CALCIUM 8.8 mg/dL (8.5-10.1)
[2025-02-21 21:56] LABS: ALBUMIN 3.3 g/dl (3.4-5.0)
[2025-02-21 21:59] LABS: CREATININE 2.2 mg/dL (0.55-1.3)
[2025-02-21 22:00] LABS: BILIRUBIN,TOTAL 0.3 mg/dL (0.2-1)
[2025-02-21 22:01] LABS: TOT PROT 6.2 g/dl (6.4-8.2)
[2025-02-21 22:04] LABS: N-TERMINAL BNP 863.5 pg/ml (5-450)
[2025-02-21] MEDS: SODIUM CHLORIDE 500 ML IV STA (23:56)
[2025-02-22] MEDS ORDERED: ALBUTEROL SO4 HFA INHALER IH PRN (02:09)
[2025-02-22] MEDS ORDERED: ALBUTEROL SO4 2.5/IPRATROPIUM 0.5 INH SOL 3 ML VIAL.NEB. NEB PRN (02:16)
[2025-02-22] MEDS: MIRTAZAPINE 15 MG TABLET (FP) PO SCH (06:22)
[2025-02-22 07:16] LABS: ABSOLUTE IMMATURE GRANULOCYTES 0.04 x10^3/uL (0.0-0.031); BASOPHILS # 0.03 x10^3/uL (0.01-0.08); EOSINOPHIL % 3.8 % (0.7-5.8); EOSINOPHILS # 0.27 x10^3/uL (0.04-0.36); HEMATOCRIT 34.1 % (34.1-44.9); HEMOGLOBIN 10.6 g/dL (11.2-15.7); INR 0.98 (0.83-1.09); MCHC 31.1 g/dl (32.2-35.5); MEAN CELL VOLUME 67.3 fl (79.4-94.8); MEAN PLT VOLUME 10.2 fl (9.4-12.3); MONOCYTE # 0.49 x10^3/uL (0.24-0.86); PLATELET COUNT 237 x10^3/uL (182-369); PROTHROMBIN TIME (PATIENT) 10.7 SEC (9.7-13.0); RDW 17.1 % (12.5-17.0)
[2025-02-22 07:19] LABS: ACTIVATED PTT 27.1 SECONDS (25.2-36.5)
[2025-02-22] MEDS: ALBUTEROL SO4 2.5/IPRATROPIUM 0.5 INH SOL 3 ML VIAL.NEB. NEB SCH (07:20)
[2025-02-22 07:28] LABS: POTASSIUM 5.2 mmol/L (3.5-5.1)
[2025-02-22 07:32] LABS: BLOOD UREA NITROGEN 44.6 mg/dL (7-18)
[2025-02-22 07:34] LABS: CALCIUM 8.7 mg/dL (8.5-10.1)
[2025-02-22 07:35] LABS: MAGNESIUM 2.3 mg/dL (1.8-2.4)
[2025-02-22 07:36] LABS: PHOSPHOROUS 4.4 mg/dL (2.5-4.9)
[2025-02-22] MEDS: FERROUS SO4 325 MG TABLET (FP) PO SCH (09:24)
[2025-02-22] MEDS: busPIRone HCL 10 MG TABLET (FP) PO SCH (09:24)
[2025-02-22] MEDS: amLODIPine BESYLATE 5 MG TABLET (FP) PO SCH (09:24)
[2025-02-22] MEDS: QUEtiapine FUMARATE 25 MG TABLET PO SCH (09:24)
[2025-02-22] MEDS: ASPIRIN 81 MG CHEWABLE TABLETS PO SCH (09:24)
[2025-02-22] MEDS: PANTOPRAZOLE 40 MG TABLET PO SCH (09:25)
[2025-02-22 11:13] VITALS: BMI 29.5
[2025-02-22] MEDS: INSULIN ASPART SLIDING SCALE (NOVOLOG) 1 VIAL SQ SCH (12:02)
[2025-02-22] MEDS: INSULIN GLARGINE (LANTUS) 100 UNITS/ML UNITS SQ SCH (12:02)
[2025-02-22] MEDS: SODIUM ZIRCONIUM CYCLOSILICATE (LOKELMA) 5 GM PACKET PO SCH (12:04)
[2025-02-22] MEDS: HEPARIN NA (PORCINE) 5,000 UNITS/ML 1ML VIAL SQ SCH (13:27)
[2025-02-22 19:16] LABS: EPI CELLS 20 /uL (0-25.1); HYALINE CASTS 0 /uL (0-3.1); URINE APPEARANCE CLEAR; URINE BACTERIA 481 /uL (0-1359); URINE BILIRUBIN NEGATIVE (NEGATIVE); URINE COLOR YELLOW; URINE GLUCOSE (UA) 2+ (NEGATIVE); URINE KETONE NEGATIVE (NEGATIVE); URINE LEUK ESTERASE 1+ (NEGATIVE); URINE NITRITE NEGATIVE (NEGATIVE); URINE PROTEIN NEGATIVE (NEGATIVE); URINE RBC 8 /uL (0-23.9); URINE WBC 41 /uL (0-25.8)
[2025-02-22] MEDS: ATORVASTATIN CA 20 MG TABLET (FP) PO SCH (21:32)
[2025-02-23 07:22] LABS: POTASSIUM 4.9 mmol/L (3.5-5.1)
[2025-02-23 07:28] LABS: ALBUMIN 3.2 g/dl (3.4-5.0)
[2025-02-23 07:29] LABS: BLOOD UREA NITROGEN 42.6 mg/dL (7-18); CALCIUM 8.6 mg/dL (8.5-10.1)
[2025-02-23 07:31] LABS: ABSOLUTE IMMATURE GRANULOCYTES 0.06 x10^3/uL (0.0-0.031); BASOPHILS # 0.03 x10^3/uL (0.01-0.08); EOSINOPHIL % 3.8 % (0.7-5.8); EOSINOPHILS # 0.32 x10^3/uL (0.04-0.36); HEMATOCRIT 34.4 % (34.1-44.9); HEMOGLOBIN 10.5 g/dL (11.2-15.7); MCHC 30.5 g/dl (32.2-35.5); MEAN CELL VOLUME 68.4 fl (79.4-94.8); MEAN PLT VOLUME 10.9 fl (9.4-12.3); MONOCYTE # 0.57 x10^3/uL (0.24-0.86); MONOCYTE % 6.7 % (4.7-12.5); PLATELET COUNT 259 x10^3/uL (182-369); RDW 16.9 % (12.5-17.0)
[2025-02-23 07:34] LABS: BILIRUBIN,TOTAL 0.4 mg/dL (0.2-1); TOT PROT 6.1 g/dl (6.4-8.2)
[2025-02-23] MEDS: ATORVASTATIN CA 40 MG TABLET (FP) PO SCH (21:54)
[2025-02-24 08:02] LABS: CALCIUM 8.9 mg/dL (8.5-10.1); POTASSIUM 5.4 mmol/L (3.5-5.1)
[2025-02-24 08:06] LABS: CREATININE 1.8 mg/dL (0.55-1.3)
[2025-02-24] MEDS: SODIUM ZIRCONIUM CYCLOSILICATE (LOKELMA) 5 GM PACKET PO SCH (12:20)
[2025-02-24] MEDS: SODIUM CHLORIDE 1,000 ML IV SCH (14:22)
[2025-02-25 07:32] LABS: POTASSIUM 4.7 mmol/L (3.5-5.1)
[2025-02-25 07:33] LABS: CALCIUM 8.7 mg/dL (8.5-10.1)
[2025-02-25 07:34] LABS: BLOOD UREA NITROGEN 37.8 mg/dL (7-18)
[2025-02-25 07:37] LABS: CREATININE 1.6 mg/dL (0.55-1.3)
[2025-02-25] MEDS: INSULIN GLARGINE (LANTUS) 100 UNITS/ML UNITS SQ SCH (07:47)
[2025-02-25 14:27] VITALS: BP 152/66; PULSE 63; RESP 19; TEMP 98.1
[2025-02-25] MEDS ORDERED: metoPROLOL SUCCINATE 25 MG TAB.SR.24H (FP) PO SCH (15:50)
== END 2025-02-25 17:09 | disposition home or self-care (01) | DRG 683 ==
LOC: JER 19:50 → JERBED 23:18 → J4W 02-22 01:20
PROVIDERS: ADMIT Internal Medicine; ATTEND Internal Medicine
DX: N17.9 Acute kidney failure, unspecified (principal); I13.0 Hypertensive heart and chronic kidney disease with heart failure and stage 1 through stage 4 chronic kidney disease, or unspecified chronic kidney disease; I50.32 Chronic diastolic (congestive) heart failure; J44.9 Chronic obstructive pulmonary disease, unspecified; I25.10 Atherosclerotic heart disease of native coronary artery without angina pectoris; F41.9 Anxiety disorder, unspecified; G30.9 Alzheimer's disease, unspecified; E11.22 Type 2 diabetes mellitus with diabetic chronic kidney disease; E11.65 Type 2 diabetes mellitus with hyperglycemia; Z95.2 Presence of prosthetic heart valve; E87.5 Hyperkalemia; N18.30 Chronic kidney disease, stage 3 unspecified
CPT/HCPCS: 0241U-QW; 36415; 71045-TC-FY; 76775-TC; 80048; 80053; 80061; 81003; 82436; 82570; 82803; 82962; 83036; 83735; 83880; 84100; 84133; 84300; 84439; 84443; 84484; 85025; 85610; 85730; 93005; 93010; 93306-TC; 94640; 99285-25; J1644

== ENCOUNTER 2025-04-22 19:10 | Observation (INO) | payer OTHER ==
[2025-04-22 19:50] VITALS: BMI 31.2
[2025-04-22 21:25] LABS: BG HCT 32.0 % (32.4-45.2); VENOUS BASE EXCESS -2.3 mmol/L (-2-2); VENOUS O2 SATURATION 78.0 % (70-80); VENOUS PCO2 37.3 mmHg (38-52); VENOUS PH 7.393 (7.310-7.410)
[2025-04-22 21:28] LABS: ABSOLUTE IMMATURE GRANULOCYTES 0.05 x10^3/uL (0.0-0.031); BASOPHILS # 0.02 x10^3/uL (0.01-0.08); EOSINOPHIL % 3.6 % (0.7-5.8); EOSINOPHILS # 0.32 x10^3/uL (0.04-0.36); MCHC 31.3 g/dl (32.2-35.5); MEAN CELL VOLUME 70.2 fl (79.4-94.8); MEAN PLT VOLUME 10.6 fl (9.4-12.3); MONOCYTE # 0.64 x10^3/uL (0.24-0.86); MONOCYTE % 7.3 % (4.7-12.5); RDW 16.6 % (12.5-17.0)
[2025-04-22 21:33] LABS: INR 0.85 (0.83-1.09); PROTHROMBIN TIME (PATIENT) 9.3 SEC (9.7-13.0)
[2025-04-22 21:35] LABS: ACTIVATED PTT 18.4 SECONDS (25.2-36.5); CO2 28.0 mmol/L (21-32); GLUCOSE,RANDOM 353.0 mg/dL (74-106)
[2025-04-22 21:38] LABS: SGOT/AST 22.0 U/L (15-37); SGPT/ALT 17.0 U/L (13-61)
[2025-04-22 21:39] LABS: CREATININE 1.4 mg/dL (0.55-1.3)
[2025-04-22 21:40] LABS: TOT PROT 6.1 g/dl (6.4-8.2)
[2025-04-22 21:41] LABS: ALK PHOS 128.0 U/L (45-117)
[2025-04-22 21:44] LABS: N-TERMINAL BNP 1215.6 pg/ml (5-450)
[2025-04-22 22:41] LABS: HCV DIAGNOSTIC IN-HOUSE W/RFLX NON-REACTIVE (NONREACTIVE)
[2025-04-22 22:42] LABS: HIV INTERPRETATION NEGATIVE (NEGATIVE)
[2025-04-22] MEDS ORDERED: ALBUTEROL SO4 2.5/IPRATROPIUM 0.5 INH SOL 3 ML VIAL.NEB. NEB PRN (22:43)
[2025-04-22] MEDS ORDERED: FUROSEMIDE 40 MG/4 ML INJECTABLE VIAL ONE ×2 (22:59→23:39)
[2025-04-22] MEDS ORDERED: INSULIN ASPART SLIDING SCALE (NOVOLOG) 1 VIAL SQ ONE (23:21)
[2025-04-22] MEDS: INSULIN ASPART SLIDING SCALE (NOVOLOG) 1 VIAL SQ SCH (23:27)
[2025-04-22] MEDS: FUROSEMIDE 40 MG/4 ML INJECTABLE VIAL IVPUSH ONE (23:28)
[2025-04-23] MEDS ORDERED: ALBUTEROL SO4 HFA INHALER IH PRN (03:06)
[2025-04-23 03:32] LABS: ABSOLUTE IMMATURE GRANULOCYTES 0.05 x10^3/uL (0.0-0.031); BASOPHILS # 0.03 x10^3/uL (0.01-0.08); EOSINOPHIL % 3.7 % (0.7-5.8); EOSINOPHILS # 0.32 x10^3/uL (0.04-0.36); MCHC 30.8 g/dl (32.2-35.5); MEAN CELL VOLUME 70.0 fl (79.4-94.8); MEAN PLT VOLUME 10.2 fl (9.4-12.3); MONOCYTE # 0.62 x10^3/uL (0.24-0.86); MONOCYTE % 7.3 % (4.7-12.5); RDW 16.5 % (12.5-17.0)
[2025-04-23 03:47] LABS: CO2 29.0 mmol/L (21-32); GLUCOSE,RANDOM 208.0 mg/dL (74-106)
[2025-04-23 03:50] LABS: CREATININE 1.4 mg/dL (0.55-1.3)
[2025-04-23] MEDS: ACETAMINOPHEN 1000 MG/100 ML BAG IVPB ONE (03:50)
[2025-04-23] MEDS: MIRTAZAPINE 15 MG TABLET (FP) PO SCH (03:51)
[2025-04-23 07:31] LABS: ABSOLUTE IMMATURE GRANULOCYTES 0.06 x10^3/uL (0.0-0.031); BASOPHILS # 0.02 x10^3/uL (0.01-0.08); EOSINOPHIL % 3.4 % (0.7-5.8); EOSINOPHILS # 0.26 x10^3/uL (0.04-0.36); MCHC 30.8 g/dl (32.2-35.5); MEAN CELL VOLUME 69.7 fl (79.4-94.8); MEAN PLT VOLUME 9.8 fl (9.4-12.3); MONOCYTE # 0.55 x10^3/uL (0.24-0.86); MONOCYTE % 7.1 % (4.7-12.5); RDW 16.5 % (12.5-17.0)
[2025-04-23] MEDS ORDERED: ALBUTEROL SO4 2.5/IPRATROPIUM 0.5 INH SOL 3 ML VIAL.NEB. NEB SCH (08:00)
[2025-04-23] MEDS: ALBUTEROL SO4 2.5/IPRATROPIUM 0.5 INH SOL 3 ML VIAL.NEB. NEB SCH (08:06)
[2025-04-23 08:13] LABS: CO2 31.0 mmol/L (21-32); GLUCOSE,RANDOM 231.0 mg/dL (74-106)
[2025-04-23 08:16] LABS: CREATININE 1.4 mg/dL (0.55-1.3)
[2025-04-23] MEDS: PANTOPRAZOLE 40 MG TABLET PO SCH (09:47)
[2025-04-23] MEDS: FERROUS SO4 325 MG TABLET (FP) PO SCH (09:47)
[2025-04-23] MEDS: busPIRone HCL 10 MG TABLET (FP) PO SCH (09:47)
[2025-04-23] MEDS: ASPIRIN 81 MG CHEWABLE TABLETS PO SCH (09:49)
[2025-04-23] MEDS: BUDESONIDE/FORMOTEROL FUMARATE 80-4.5 MCG (10.3 GM INHALER) IH SCH (09:49)
[2025-04-23] MEDS: FUROSEMIDE 40 MG TABLET (FP) PO SCH (09:50)
[2025-04-23] MEDS: amLODIPine BESYLATE 5 MG TABLET (FP) PO SCH (11:16)
[2025-04-23] MEDS: FUROSEMIDE 40 MG/4 ML INJECTABLE VIAL IVPUSH ONE (12:46)
[2025-04-23] MEDS: APIXABAN 5 MG TABLET PO SCH (13:33)
[2025-04-23] MEDS: ATORVASTATIN CA 20 MG TABLET (FP) PO SCH (21:27)
[2025-04-24 10:19] LABS: ABSOLUTE IMMATURE GRANULOCYTES 0.06 x10^3/uL (0.0-0.031); BASOPHILS # 0.02 x10^3/uL (0.01-0.08); EOSINOPHIL % 2.6 % (0.7-5.8); EOSINOPHILS # 0.22 x10^3/uL (0.04-0.36); MCHC 31.1 g/dl (32.2-35.5); MEAN CELL VOLUME 69.8 fl (79.4-94.8); MEAN PLT VOLUME 10.3 fl (9.4-12.3); MONOCYTE # 0.51 x10^3/uL (0.24-0.86); MONOCYTE % 6.0 % (4.7-12.5); RDW 16.3 % (12.5-17.0)
[2025-04-24 10:39] LABS: CO2 27.0 mmol/L (21-32); GLUCOSE,RANDOM 353.0 mg/dL (74-106)
[2025-04-24 10:42] LABS: CREATININE 1.6 mg/dL (0.55-1.3); SGOT/AST 11.0 U/L (15-37); SGPT/ALT 16.0 U/L (13-61)
[2025-04-24 10:44] LABS: TOT PROT 6.0 g/dl (6.4-8.2)
[2025-04-24 10:45] LABS: ALK PHOS 127.0 U/L (45-117)
[2025-04-24 10:47] LABS: N-TERMINAL BNP 921.3 pg/ml (5-450)
[2025-04-25 09:15] LABS: ABSOLUTE IMMATURE GRANULOCYTES 0.05 x10^3/uL (0.0-0.031); BASOPHILS # 0.02 x10^3/uL (0.01-0.08); EOSINOPHIL % 3.4 % (0.7-5.8); EOSINOPHILS # 0.24 x10^3/uL (0.04-0.36); MCHC 30.9 g/dl (32.2-35.5); MEAN CELL VOLUME 69.2 fl (79.4-94.8); MEAN PLT VOLUME 10.5 fl (9.4-12.3); MONOCYTE # 0.46 x10^3/uL (0.24-0.86); MONOCYTE % 6.5 % (4.7-12.5); RDW 16.1 % (12.5-17.0)
[2025-04-25 10:50] LABS: CO2 29.0 mmol/L (21-32); GLUCOSE,RANDOM 236.0 mg/dL (74-106)
[2025-04-25 10:53] LABS: SGPT/ALT 17.0 U/L (13-61)
[2025-04-25 10:54] LABS: CREATININE 1.5 mg/dL (0.55-1.3); SGOT/AST 10.0 U/L (15-37); TOT PROT 5.7 g/dl (6.4-8.2)
[2025-04-25 10:56] LABS: ALK PHOS 119.0 U/L (45-117)
[2025-04-26 08:00] LABS: ABSOLUTE IMMATURE GRANULOCYTES 0.06 x10^3/uL (0.0-0.031); BASOPHILS # 0.02 x10^3/uL (0.01-0.08); EOSINOPHIL % 3.9 % (0.7-5.8); EOSINOPHILS # 0.28 x10^3/uL (0.04-0.36); MCHC 32.5 g/dl (32.2-35.5); MEAN CELL VOLUME 67.7 fl (79.4-94.8); MEAN PLT VOLUME 10.5 fl (9.4-12.3); MONOCYTE # 0.49 x10^3/uL (0.24-0.86); MONOCYTE % 6.9 % (4.7-12.5); RDW 15.9 % (12.5-17.0)
[2025-04-26 09:19] LABS: CO2 26.0 mmol/L (21-32)
[2025-04-26 09:20] LABS: CREATININE 1.5 mg/dL (0.55-1.3); GLUCOSE,RANDOM 252.0 mg/dL (74-106); SGOT/AST 11.0 U/L (15-37); SGPT/ALT 15.0 U/L (13-61)
[2025-04-26 09:22] LABS: TOT PROT 5.4 g/dl (6.4-8.2)
[2025-04-26 09:23] LABS: ALK PHOS 106.0 U/L (45-117)
[2025-04-26 22:35] VITALS: RESP 18
[2025-04-27 15:11] VITALS: BP 143/64; PULSE 67; TEMP 98.1
[2025-04-27] MEDS: MAG HYDROX/AL HYDROX/SIMETH 30 ML UNIT-DOSE CUP PO PRN (15:43)
== END 2025-04-27 16:15 | disposition home or self-care (01) ==
LOC: JER 19:10 → JERBED 21:55 → J4S 04-23 01:08
PROVIDERS: ADMIT Internal Medicine; ATTEND Internal Medicine
DX: I13.0 Hypertensive heart and chronic kidney disease with heart failure and stage 1 through stage 4 chronic kidney disease, or unspecified chronic kidney disease (principal); I50.33 Acute on chronic diastolic (congestive) heart failure; J96.00 Acute respiratory failure, unspecified whether with hypoxia or hypercapnia; N18.9 Chronic kidney disease, unspecified; E11.22 Type 2 diabetes mellitus with diabetic chronic kidney disease; I25.10 Atherosclerotic heart disease of native coronary artery without angina pectoris; J44.9 Chronic obstructive pulmonary disease, unspecified; E78.5 Hyperlipidemia, unspecified; K21.9 Gastro-esophageal reflux disease without esophagitis; G30.9 Alzheimer's disease, unspecified; F02.80 Dementia in other diseases classified elsewhere, unspecified severity, without behavioral disturbance, psychotic disturbance, mood disturbance, and anxiety; Z95.5 Presence of coronary angioplasty implant and graft; Z95.2 Presence of prosthetic heart valve; Z95.1 Presence of aortocoronary bypass graft; Z79.82 Long term (current) use of aspirin; Z79.4 Long term (current) use of insulin
CPT/HCPCS: 36415; 71045-TC-FY; 80048; 80053; 82550; 82803; 82962; 83036; 83735; 83880; 84100; 84484; 85025; 85610; 85730; 86803; 86850; 86900; 86901; 87389; 87637-QW; 93005; 93010; 93970-TC; 94640; 96374; 99285-25; G0378

== ENCOUNTER 2025-05-08 19:34 | Observation (INO) | payer OTHER ==
[2025-05-08 19:47] VITALS: RESP 18
[2025-05-08] MEDS ORDERED: FAMOTIDINE 20 MG/50 ML IVPB 20 MG/50 ML MG IVPB ONE (20:10)
[2025-05-08] MEDS: SODIUM CHLORIDE 250 ML IV STA (20:14)
[2025-05-08] MEDS: FAMOTIDINE 20 MG/50 ML IVPB 20 MG/50 ML MG IVPB ONE (20:14)
[2025-05-08 20:32] LABS: BG HCT 31.0 % (32.4-45.2); MCHC 31.1 g/dl (32.2-35.5); MEAN CELL VOLUME 69.9 fl (79.4-94.8); MEAN PLT VOLUME 10.2 fl (9.4-12.3); RDW 15.9 % (12.5-17.0); VENOUS BASE EXCESS -1.6 mmol/L (-2-2); VENOUS O2 SATURATION 46.5 % (70-80); VENOUS PCO2 45.1 mmHg (38-52); VENOUS PH 7.347 (7.310-7.410)
[2025-05-08 20:38] LABS: INR 1.15 (0.83-1.09); PROTHROMBIN TIME (PATIENT) 12.5 SEC (9.7-13.0)
[2025-05-08 20:40] LABS: ACTIVATED PTT 32.1 SECONDS (25.2-36.5)
[2025-05-08 21:16] LABS: CO2 27 mmol/L (21-32); GLUCOSE,RANDOM 444 mg/dL (74-106)
[2025-05-08 21:18] LABS: CREATININE 1.7 mg/dL (0.55-1.3); SGOT/AST 9 U/L (15-37); SGPT/ALT 15 U/L (13-61)
[2025-05-08 21:20] LABS: ALK PHOS 135 U/L (45-117); TOT PROT 6.3 g/dl (6.4-8.2)
[2025-05-08] MEDS ORDERED: DEXAMETHASONE SOD PHOSPHATE 10 MG/1 ML VIAL ONE (21:29)
[2025-05-08] MEDS ORDERED: ALBUTEROL SO4 2.5/IPRATROPIUM 0.5 INH SOL 3 ML VIAL.NEB. NEB ONE (21:29)
[2025-05-08] MEDS: DEXAMETHASONE SOD PHOSPHATE 10 MG/1 ML VIAL IVPUSH ONE (21:32)
[2025-05-08] MEDS: ALBUTEROL SO4 2.5/IPRATROPIUM 0.5 INH SOL 3 ML VIAL.NEB. NEB ONE (21:32)
[2025-05-08] MEDS ORDERED: ALBUTEROL SO4 2.5/IPRATROPIUM 0.5 INH SOL 3 ML VIAL.NEB. NEB PRN (23:38)
[2025-05-09 01:20] VITALS: BMI 31.6
[2025-05-09] MEDS: INSULIN (NOVOLOG) ASPART 100 UNITS/ML 10ML VIAL SQ ONE (02:33)
[2025-05-09] MEDS: INSULIN ASPART SLIDING SCALE (NOVOLOG) 1 VIAL SQ SCH (06:25)
[2025-05-09] MEDS: busPIRone HCL 10 MG TABLET (FP) PO SCH (06:37)
[2025-05-09 07:39] LABS: MCHC 31.4 g/dl (32.2-35.5); MEAN CELL VOLUME 70.2 fl (79.4-94.8); MEAN PLT VOLUME 10.7 fl (9.4-12.3); RDW 16.0 % (12.5-17.0)
[2025-05-09] MEDS: LOSARTAN POTASSIUM 25 MG TABLET PO SCH (09:23)
[2025-05-09] MEDS: amLODIPine BESYLATE 5 MG TABLET (FP) PO SCH (09:23)
[2025-05-09] MEDS: FUROSEMIDE 20 MG TABLET (FP) PO SCH (09:23)
[2025-05-09] MEDS: BUDESONIDE/FORMETEROL FUMARATE 80/4.5 mcg INHALER IH SCH (09:25)
[2025-05-09] MEDS: APIXABAN 2.5 MG TABLET PO SCH (09:25)
[2025-05-09 09:36] LABS: CO2 27.0 mmol/L (21-32); CREATININE 1.5 mg/dL (0.55-1.3); GLUCOSE,RANDOM 361.0 mg/dL (74-106)
[2025-05-09] MEDS: predniSONE 20 MG TABLET (UD) PO SCH (11:52)
[2025-05-09] MEDS: ATORVASTATIN CA 20 MG TABLET (FP) PO SCH (21:10)
[2025-05-09] MEDS: MIRTAZAPINE 15 MG TABLET (FP) PO SCH (21:10)
[2025-05-09] MEDS: INSULIN GLARGINE (LANTUS) 100 UNITS/ML UNITS SQ SCH (21:16)
[2025-05-10 15:20] VITALS: BP 148/59; PULSE 80; TEMP 98.1
== END 2025-05-10 17:55 | disposition home or self-care (01) ==
LOC: JER 19:34 → JERBED 22:16 → J4W 05-09 00:31
PROVIDERS: ADMIT Internal Medicine; ATTEND Internal Medicine
PROC: 3E0F7GC Introduction of Other Therapeutic Substance into Respiratory Tract, Via Natural or Artificial Opening (ICD-10-PCS; principal; 2025-05-08)
PROC: 3E013VG Introduction of Insulin into Subcutaneous Tissue, Percutaneous Approach (ICD-10-PCS; 2025-05-08)
PROC: 3E0337Z Introduction of Electrolytic and Water Balance Substance into Peripheral Vein, Percutaneous Approach (ICD-10-PCS; 2025-05-08)
DX: J44.1 Chronic obstructive pulmonary disease with (acute) exacerbation (principal); I25.10 Atherosclerotic heart disease of native coronary artery without angina pectoris; F03.90 Unspecified dementia, unspecified severity, without behavioral disturbance, psychotic disturbance, mood disturbance, and anxiety; M54.12 Radiculopathy, cervical region; N18.9 Chronic kidney disease, unspecified; E11.9 Type 2 diabetes mellitus without complications; Z95.2 Presence of prosthetic heart valve; E66.9 Obesity, unspecified; R07.89 Other chest pain
CPT/HCPCS: 36415; 71045-TC-FY; 80048; 80053; 82010; 82550; 82803; 82962; 83690; 83735; 83880; 84484; 85025; 85027; 85610; 85730; 87635; 87637-QW; 93005; 93010; 94150; 94640; 96361; 96365; 96372; 96375; 99285-25; G0378; J1100

== ENCOUNTER 2025-05-14 18:36 | Inpatient (IN) | payer OTHER ==
[2025-05-14 19:32] LABS: BG HCT 32.0 % (32.4-45.2); VENOUS BASE EXCESS -3.6 mmol/L (-2-2); VENOUS O2 SATURATION 90.8 % (70-80); VENOUS PCO2 35.7 mmHg (38-52); VENOUS PH 7.386 (7.310-7.410)
[2025-05-14] MEDS: SODIUM CHLORIDE 0.9% 500 ML INFUS.BAG IV ONE (19:37)
[2025-05-14 19:39] LABS: ABSOLUTE IMMATURE GRANULOCYTES 0.11 x10^3/uL (0.0-0.031); BASOPHILS # 0.01 x10^3/uL (0.01-0.08); EOSINOPHIL % 0.0 % (0.7-5.8); EOSINOPHILS # 0.00 x10^3/uL (0.04-0.36); MCHC 30.8 g/dl (32.2-35.5); MEAN CELL VOLUME 71.5 fl (79.4-94.8); MEAN PLT VOLUME 10.3 fl (9.4-12.3); MONOCYTE # 0.50 x10^3/uL (0.24-0.86); MONOCYTE % 5.2 % (4.7-12.5); RDW 16.3 % (12.5-17.0)
[2025-05-14] MEDS: SODIUM CHLORIDE 1,000 ML IV STA (19:56)
[2025-05-14 20:09] LABS: LACTIC ACID 3.4 mmol/L (0.4-2.0)
[2025-05-14 20:17] LABS: HCV DIAGNOSTIC IN-HOUSE W/RFLX NON-REACTIVE (NONREACTIVE); HIV INTERPRETATION NEGATIVE (NEGATIVE)
[2025-05-14 20:18] LABS: GLUCOSE,RANDOM 598 mg/dL (74-106)
[2025-05-14 20:19] LABS: TOT PROT 5.9 g/dl (6.4-8.2)
[2025-05-14 20:20] LABS: CO2 21 mmol/L (21-32)
[2025-05-14 20:22] LABS: ALK PHOS 96 U/L (40-150)
[2025-05-14 20:24] LABS: CREATININE 1.27 mg/dL (0.55-1.3); SGOT/AST 13 U/L (5-34); SGPT/ALT 13 U/L (0-55)
[2025-05-14 20:33] LABS: EPI CELLS 2 /uL (0-25.1); HYALINE CASTS 0 /uL (0-3.1); URINE APPEARANCE CLEAR; URINE BACTERIA 4455 /uL (0-1359); URINE BILIRUBIN NEGATIVE (NEGATIVE); URINE COLOR YELLOW; URINE GLUCOSE (UA) 3+ (NEGATIVE); URINE KETONE NEGATIVE (NEGATIVE); URINE LEUK ESTERASE TRACE (NEGATIVE); URINE NITRITE NEGATIVE (NEGATIVE); URINE PROTEIN NEGATIVE (NEGATIVE); URINE RBC 11 /uL (0-23.9); URINE UROBILINOGEN 1.0 mg/dL (0.2-1.0); URINE WBC 119 /uL (0-25.8)
[2025-05-14] MEDS ORDERED: INSULIN REGULAR HUMAN 100 UNITS/ML *VIAL ONE (20:45)
[2025-05-14] MEDS: INSULIN REGULAR HUMAN 100 UNITS/ML *VIAL IVPUSH ONE ×2 (20:52)
[2025-05-14 22:20] LABS: GLUCOSE,RANDOM 299.0 mg/dL (74-106)
[2025-05-14 22:22] LABS: CO2 22.0 mmol/L (21-32)
[2025-05-14 22:26] LABS: CREATININE 1.17 mg/dL (0.55-1.3)
[2025-05-14 22:35] LABS: LACTIC ACID 2.5 mmol/L (0.4-2.0)
[2025-05-14] MEDS ORDERED: CEFTRIAXONE 1 GM/50 ML BAG ONE (22:35)
[2025-05-14] MEDS: CEFTRIAXONE 1 GM in DEXTROSE 5%-WATER - 50 ML IVPB ONE (22:39)
[2025-05-14] MEDS: CEFTRIAXONE 1 GM in DEXTROSE 5%-WATER - 100 ML IVPB ONE (23:01)
[2025-05-14] MEDS: INSULIN REGULAR 100 UNITS in SODIUM CHLORIDE 99 ML IVPB SCH (23:01)
[2025-05-15] MEDS ORDERED: ALBUTEROL SO4 2.5/IPRATROPIUM 0.5 INH SOL 3 ML VIAL.NEB. NEB PRN (00:31)
[2025-05-15] MEDS ORDERED: ALBUTEROL SO4 HFA INHALER IH PRN (00:31)
[2025-05-15] MEDS ORDERED: APIXABAN 2.5 MG TABLET ONE (01:11)
[2025-05-15] MEDS ORDERED: MIRTAZAPINE 15 MG TABLET (FP) ONE (01:11)
[2025-05-15] MEDS: MIRTAZAPINE 15 MG TABLET (FP) PO SCH (01:15)
[2025-05-15] MEDS: APIXABAN 2.5 MG TABLET PO SCH (01:15)
[2025-05-15 01:50] VITALS: BMI 31.4
[2025-05-15] MEDS: INSULIN ASPART SLIDING SCALE (NOVOLOG) 1 VIAL SQ SCH (06:46)
[2025-05-15 06:57] LABS: ABSOLUTE IMMATURE GRANULOCYTES 0.08 x10^3/uL (0.0-0.031); BASOPHILS # 0.01 x10^3/uL (0.01-0.08); EOSINOPHIL % 1.1 % (0.7-5.8); EOSINOPHILS # 0.11 x10^3/uL (0.04-0.36); MCHC 31.2 g/dl (32.2-35.5); MEAN CELL VOLUME 70.3 fl (79.4-94.8); MEAN PLT VOLUME 10.2 fl (9.4-12.3); MONOCYTE # 0.72 x10^3/uL (0.24-0.86); MONOCYTE % 7.2 % (4.7-12.5); RDW 16.3 % (12.5-17.0)
[2025-05-15 07:09] LABS: INR 1.12 (0.83-1.09); PROTHROMBIN TIME (PATIENT) 12.2 SEC (9.7-13.0)
[2025-05-15 07:11] LABS: ACTIVATED PTT 26.9 SECONDS (25.2-36.5)
[2025-05-15 07:35] LABS: GLUCOSE,RANDOM 221.0 mg/dL (74-106)
[2025-05-15 07:37] LABS: CO2 25.0 mmol/L (21-32)
[2025-05-15 07:41] LABS: CREATININE 1.02 mg/dL (0.55-1.3)
[2025-05-15] MEDS: ASPIRIN COATED 81 MG TABLET.EC PO SCH (09:08)
[2025-05-15] MEDS: FERROUS SO4 325 MG TABLET (FP) PO SCH (09:08)
[2025-05-15] MEDS: PANTOPRAZOLE 40 MG TABLET PO SCH (09:08)
[2025-05-15] MEDS: amLODIPine BESYLATE 5 MG TABLET (FP) PO SCH (09:08)
[2025-05-15] MEDS: FUROSEMIDE 20 MG TABLET (FP) PO SCH (09:08)
[2025-05-15] MEDS: LOSARTAN POTASSIUM 25 MG TABLET PO SCH (09:09)
[2025-05-15] MEDS: predniSONE 5 MG TABLET (UD) PO SCH (09:09)
[2025-05-15] MEDS: BUDESONIDE/FORMETEROL FUMARATE 80/4.5 mcg INHALER IH SCH (09:18)
[2025-05-15] MEDS: ATORVASTATIN CA 20 MG TABLET (FP) PO SCH (22:25)
[2025-05-16] MEDS: busPIRone HCL 10 MG TABLET (FP) PO SCH (06:19)
[2025-05-16 08:08] LABS: ABSOLUTE IMMATURE GRANULOCYTES 0.14 x10^3/uL (0.0-0.031); BASOPHILS # 0.02 x10^3/uL (0.01-0.08); EOSINOPHIL % 1.1 % (0.7-5.8); EOSINOPHILS # 0.16 x10^3/uL (0.04-0.36); MCHC 31.3 g/dl (32.2-35.5); MEAN CELL VOLUME 70.5 fl (79.4-94.8); MEAN PLT VOLUME 10.4 fl (9.4-12.3); MONOCYTE # 0.86 x10^3/uL (0.24-0.86); MONOCYTE % 5.9 % (4.7-12.5); RDW 16.1 % (12.5-17.0)
[2025-05-16 08:48] LABS: GLUCOSE,RANDOM 212.0 mg/dL (74-106)
[2025-05-16 08:49] LABS: TOT PROT 5.6 g/dl (6.4-8.2)
[2025-05-16 08:50] LABS: CO2 25.0 mmol/L (21-32)
[2025-05-16 08:54] LABS: CREATININE 1.3 mg/dL (0.55-1.3); SGOT/AST 13.0 U/L (5-34); SGPT/ALT 10.0 U/L (0-55)
[2025-05-16 09:19] LABS: ALK PHOS 90.0 U/L (40-150)
[2025-05-16] MEDS: INSULIN GLARGINE (LANTUS) 100 UNITS/ML UNITS SQ SCH (22:00)
[2025-05-16] MEDS ORDERED: INSULIN GLARGINE (LANTUS) 100 UNITS/ML UNITS SQ SCH (22:00)
[2025-05-17 06:35] LABS: ABSOLUTE IMMATURE GRANULOCYTES 0.13 x10^3/uL (0.0-0.031); BASOPHILS # 0.01 x10^3/uL (0.01-0.08); EOSINOPHIL % 1.4 % (0.7-5.8); EOSINOPHILS # 0.13 x10^3/uL (0.04-0.36); MCHC 31.0 g/dl (32.2-35.5); MEAN CELL VOLUME 69.9 fl (79.4-94.8); MEAN PLT VOLUME 10.1 fl (9.4-12.3); MONOCYTE # 0.62 x10^3/uL (0.24-0.86); MONOCYTE % 6.6 % (4.7-12.5); RDW 15.9 % (12.5-17.0)
[2025-05-17] MEDS ORDERED: INSULIN ASPART SLIDING SCALE (NOVOLOG) 1 VIAL SQ ONE (06:45)
[2025-05-17 07:05] LABS: GLUCOSE,RANDOM 201.0 mg/dL (74-106); TOT PROT 5.6 g/dl (6.4-8.2)
[2025-05-17 07:06] LABS: CO2 26.0 mmol/L (21-32)
[2025-05-17 07:07] LABS: ALK PHOS 88.0 U/L (40-150)
[2025-05-17 07:10] LABS: SGOT/AST 11.0 U/L (5-34); SGPT/ALT 10.0 U/L (0-55)
[2025-05-17 07:11] LABS: CREATININE 1.17 mg/dL (0.55-1.3)
[2025-05-17 10:03] VITALS: RESP 18
[2025-05-17 15:47] VITALS: BP 153/60; PULSE 63; TEMP 98.4
== END 2025-05-17 16:55 | DRG 638 ==
LOC: JER 18:36 → JERBED 21:57 → J4W 05-15 01:29 → OBSVTOIN 05-15 09:05
PROVIDERS: ADMIT Internal Medicine; ATTEND Internal Medicine
DX: E11.65 Type 2 diabetes mellitus with hyperglycemia (principal); I13.0 Hypertensive heart and chronic kidney disease with heart failure and stage 1 through stage 4 chronic kidney disease, or unspecified chronic kidney disease; I50.30 Unspecified diastolic (congestive) heart failure; R07.89 Other chest pain; F02.80 Dementia in other diseases classified elsewhere, unspecified severity, without behavioral disturbance, psychotic disturbance, mood disturbance, and anxiety; G30.9 Alzheimer's disease, unspecified; E11.22 Type 2 diabetes mellitus with diabetic chronic kidney disease; J45.909 Unspecified asthma, uncomplicated; J44.9 Chronic obstructive pulmonary disease, unspecified; N18.9 Chronic kidney disease, unspecified
CPT/HCPCS: 36415; 71045-TC-FY; 80048; 80053; 81003; 82010; 82803; 82962; 83605; 83690; 83735; 83880; 84484; 85025; 85610; 85730; 86803; 87077; 87086; 87389; 93005; 93010; 99285-25; G0378